=== PATIENT | female | born 1965 | race Caucasian/White ===

== ENCOUNTER 2016-07-07 08:31 | Emergency (ER) | payer SELFPAY ==
[~2016-07-07] VITALS: Ht 165.1 cm; Wt 90.0 kg
[~2016-07-07 08:31] MED LIST: CARV6.252 PO; CIPR500T4 PO; CYMB30CA PO; INSU1INJ14 INJ; PERC5TAB12 PO; PREG100 PO; ULTR50TA PO; ZOFR4TAB3 SL
[2016-07-07 08:37] VITALS: BP 201/93; PULSE 93; RESP 20; TEMP 97.6; O2SAT 95
[2016-07-07] MEDS ORDERED: KETOROLAC TROMETHAMINE 60 MG/2 ML (IM) VIAL IM ONE (09:00)
[2016-07-07] MEDS ORDERED: LORazepam 2 MG/ML VIAL IM ONE (09:00)
[2016-07-07] MEDS ORDERED: DULO1CAP2 PO (09:03)
[2016-07-07] MEDS ORDERED: LYRI100C PO (09:03)
[2016-07-07] MEDS ORDERED: CARV6.252 PO ×2 (09:03→09:25)
[2016-07-07] MEDS ORDERED: INSU1INJ14 SQ (09:03)
--- NOTE | 2016-07-07 09:03 | PD ---
HPI Chief Complaint: Pain: Acute or Chronic Time Seen by Provider: 08:44 Travel History International Travel<30 days: No Contact w/Intl Traveler<30days: No History of Present Illness HPI This is a 50-year-old female with a history of diabetes and neuropathy who presents to the emergency department with pain all over her body described as pins and needles in her hands and feet. Her reports that she woke up crying in pain. They attributed to her having been off of her medications including her Lyrica since December or January. The patient is tearful. Her reports that her father has been in the hospital just got discharged from rehabilitation with them so they have been under a lot of stress. He also says his has a hard time around the holidays. She denies any thoughts of hurting herself or others. PFSH Past Medical History Arthritis: No Asthma: No Autoimmune Disease: No Blood Disorders: No Anxiety: No Depression: Yes Heart Rhythm Problems: No Cancer: No Cardiovascular Problems: Yes (HTN) High Cholesterol: Yes Chemotherapy: No Chest Pain: Yes Congestive Heart Failure: No COPD: No Cerebrovascular Accident: No Diabetes: Yes Diminished Hearing: No Endocrine: Yes Gastrointestinal Disorders: Yes (gastroparesis) GERD: Yes Glaucoma: No Genitourinary: No Headaches: Yes Hepatitis: No Hiatal Hernia: No Hypertension: Yes Immune Disorder: No Implanted Vascular Access Dvce: No Kidney Stones: No Musculoskeletal: No Neurologic: Yes (neuropathy) Psychiatric: Yes Reproductive: No Respiratory: No Immunizations Current: No Myocardial Infarction: No Radiation Therapy: No Renal Failure: No Seizures: No Sleep Apnea: No Thyroid Disease: No Ulcer: No Tubal Ligation: Yes Past Surgical History Abdominal Surgery: Yes (X 2) AICD: No Section: Yes (X 2) Cholecystectomy: Yes Genitourinary Surgery: No Gynecologic Surgery: Yes Pacemaker: No Other Surgery: Yes (LAPAROSCOPY) Social History Alcohol Use: Yes (on occasion) Tobacco Use: No Substance Use: No Allergies-Medications (Allergen,Severity, Reaction): Coded Allergies: Sulfa (Verified Allergy, Severe, BREATHING DIFFICULTIES, 07/07/16) Reported Meds & Prescriptions Reported Meds & Active Scripts Active Carvedilol 6.25 Mg Tab 6.25 Mg PO BID Reported Carvedilol 6.25 Mg Tab 6.25 Mg PO BID Cymbalta DR (Duloxetine HCl) 60 Mg Capdr 60 Mg PO DAILY Review of Systems Except as stated in HPI: all other systems reviewed are Neg Physical Exam Narrative GENERAL:Well appearing, no acute distress SKIN: Warm and dry. HEAD: Atraumatic. Normocephalic. EYES: Pupils equal and round. No injection or drainage. ENT: Moist mucous membranes NECK: Trachea midline. CARDIOVASCULAR: Regular rate and rhythm. No murmur appreciated. RESPIRATORY: Clear to auscultation. Breath sounds equal bilaterally. GASTROINTESTINAL: Abdomen soft, non-tender, nondistended. MUSCULOSKELETAL: No obvious deformities. NEUROLOGICAL: Awake and alert. No obvious cranial nerve deficits. Moving all extremities PSYCHIATRIC: tearful, depressed mood Data Data Last Documented VS Vital Signs Date Time Temp Pulse Resp B/P Pulse Ox O2 Delivery O2 Flow Rate FiO2 07/07/16 08:37 97.6 93 20 201/93 95 Orders Ketorolac Inj (Toradol Inj) (07/07/16 09:00) Lorazepam Inj (Ativan Inj) (07/07/16 09:00) MDM Medical Decision Making Medical Screen Exam Complete: Yes Emergency Medical Condition: Yes Differential Diagnosis Diabetic neuropathy, fibromyalgia, panic attack, depression Narrative Course This is a 50-year-old female who woke up this morning in tears reporting pain all over her body. She has a history of diabetic neuropathy and has been off of her Lyrica for several months. She appears quite depressed but denies any thoughts of hurting herself or others. Patient was given a dose of Toradol and Ativan in the emergency department. She feels somewhat better. I think we should restart her on her medications. I think some of this is likely peripheral neuropathy but it's been complicated by depression. I don't think she is a harm to herself or others at this point I think she can be safely discharged. Diagnosis Primary Impression: Diabetic neuropathy Qualified Code: E11.42 - Diabetic polyneuropathy associated with type 2 diabetes mellitus Additional Impression: Depression Qualified Code: F32.9 - Depression, unspecified depression type Patient Instructions: General Instructions Additional Instructions: If you develop severe chest pain, shortness of breath, sweating, lightheadedness , dizziness or difficulty breathing return to the emergency department immediately. If you're having thoughts of hurting yourself or others return to the emergency room immediately. Follow-up with a primary care physician as soon as possible. Med/Other Pt SpecificInfo: Prescription(s) given Scripts Carvedilol 6.25 Mg Tab6.25 Mg PO BID #60 TAB Ref 1 Prov:Nara Felipe MD 07/07/16 Disposition: 01 DISCHARGE HOME Condition: Stable Nara Felipe MD Jul 07, 2016 09:03 Nara Felipe MD Jul 07, 2016 09:03
[2016-07-07] MEDS ORDERED: CYMB60CA PO (09:25)
[2016-07-07] MEDS ORDERED: HYDROmorphone HCL PF 1 MG/ML VIAL IV PUSH ONE (10:30)
== END 2016-07-07 11:25 | disposition home or self-care (01) ==
LOC: NEPC 08:31
DX: E11.40 Type 2 diabetes mellitus with diabetic neuropathy, unspecified (principal); F32.9 Major depressive disorder, single episode, unspecified; I10 Essential (primary) hypertension; E78.00 Pure hypercholesterolemia, unspecified; K31.84 Gastroparesis
CPT/HCPCS: 96372; 96374; 96375; 99283; J1170; J1885; J2060

== ENCOUNTER 2016-12-23 00:47 | Emergency (ER) | payer OTHER ==
[~2016-12-23] VITALS: Ht 160 cm; Wt 92.0 kg
[~2016-12-23 00:47] MED LIST changes: -CIPR500T4 PO; -CYMB30CA PO; +CYMB60CA PO; -INSU1INJ14 INJ; -PERC5TAB12 PO; -PREG100 PO; -ULTR50TA PO; -ZOFR4TAB3 SL
[2016-12-23 00:49] VITALS: BP 180/97; PULSE 90; RESP 20; TEMP 97.7; O2SAT 96
[2016-12-23] MEDS ORDERED: INSU1INJ14 SQ (00:59)
[2016-12-23] MEDS ORDERED: LYRI75CA PO (00:59)
--- NOTE | 2016-12-23 01:22 | PD ---
HPI Chief Complaint: Diabetic Time Seen by Provider: 01:11 Travel History International Travel<30 days: No Contact w/Intl Traveler<30days: No Traveled to known affect area: No History of Present Illness HPI The patient is a 51 year old female who presents to the [facility] emergency department with a history of not feeling well since Thursday morning. The patient reports that she has had nausea and vomiting 2, diarrhea 2, and low back pain. The patient reports that she checked her blood sugar and it was noted to be as high as 525 this evening. The patient denies having any chest pain, chest pressure, or shortness of breath. She reports that she was diagnosed with diabetes 10 years ago and a proximally year ago underwent a change to her regimen, discontinuing Invokana. Her current primary care physician, Dr. Estrada is in the process of reevaluating her for possibly starting back on this medication versus better control of her blood sugar with institution of insulin. The patient on review of systems denies having any recent known fevers, cough, congestion, neck pain, chest pain, shortness of breath, urinary symptoms, or neurologic symptoms. [facility] Past Medical History Narrative Medical The patient's past medical history is significant for diabetes, hypertension, neuropathy, depression, hyperlipidemia, gastroparesis. Arthritis: No Asthma: No Autoimmune Disease: No Blood Disorders: No Anxiety: No Depression: Yes Heart Rhythm Problems: No Cancer: No Cardiovascular Problems: Yes (htn) High Cholesterol: Yes Chemotherapy: No Chest Pain: Yes Congestive Heart Failure: No COPD: No Cerebrovascular Accident: No Diabetes: Yes Patient Takes Glucophage: Yes Diminished Hearing: No Endocrine: Yes Gastrointestinal Disorders: Yes (gastroparesis) GERD: Yes Glaucoma: No Genitourinary: No Headaches: Yes Hepatitis: No Hiatal Hernia: No Hypertension: Yes Immune Disorder: No Implanted Vascular Access Dvce: No Kidney Stones: No Musculoskeletal: No Neurologic: Yes (neuropathy) Psychiatric: Yes Reproductive: No Respiratory: No Immunizations Current: No Myocardial Infarction: No Radiation Therapy: No Renal Failure: No Seizures: No Sleep Apnea: No Thyroid Disease: No Ulcer: No Tetanus Vaccination: < 5 Years Influenza Vaccination: No ?: Not Tubal Ligation: Yes Past Surgical History Narrative Surgical Patient's past surgical history is significant for 2 c-sections, laparoscopy x2 , cholecystectomy. Abdominal Surgery: Yes (X 2) AICD: No Section: Yes (X 2) Cholecystectomy: Yes Genitourinary Surgery: No Gynecologic Surgery: Yes Pacemaker: No Other Surgery: Yes (LAPAROSCOPY) Social History Alcohol Use: Yes (on occasion) Tobacco Use: No Substance Use: No Allergies-Medications (Allergen,Severity, Reaction): Coded Allergies: Sulfa (Verified Allergy, Severe, BREATHING DIFFICULTIES, 12/23/16) Reported Meds & Prescriptions Reported Meds & Active Scripts Active Carvedilol 6.25 Mg Tab 6.25 Mg PO BID Reported Lyrica (Pregabalin) 75 Mg Cap 75 Mg PO TID Tresiba Flextouch Pen Inj (Insulin Degludec Inj) 300 unit/3 ML Pen 1 Units SQ TID Carvedilol 6.25 Mg Tab 6.25 Mg PO BID Cymbalta DR (Duloxetine HCl) 60 Mg Capdr 60 Mg PO DAILY Review of Systems Except as stated in HPI: all other systems reviewed are Neg General / Constitutional: No: Fever Eyes: No: Visual changes HENT: No: Headaches Cardiovascular: No: Chest Pain or Discomfort Respiratory: No: Shortness of Breath Gastrointestinal: Positive: Nausea, Vomiting, Diarrhea, Changes in Bowel Habits , No: Abdominal Pain, Hematemesis, Hematochezia, Loss of Appetite Genitourinary: No: Dysuria Musculoskeletal: No: Pain Skin: No Rash Neurologic: No: Weakness Psychiatric: No: Depression Endocrine: No: Polydipsia Hematologic/Lymphatic: No: Easy Bruising Physical Exam Narrative General: The patient is a well-developed well-nourished female in no acute distress. Head and Neck exam: Head is normocephalic atraumatic. Eyes: EOMI, pupils are equal round and reactive to light. Nose: Midline septum with pink mucous membranes Mouth: Dentition unremarkable. Tacky mucus membranes. Posterior oropharynx is not erythematous. No tonsillar hypertrophy. Uvula midline. Airway patent. Neck: No palpable lymphadenopathy. No nuchal rigidity. No thyromegaly. Cardiovascular: Regular rate and rhythm without murmurs, gallops, or rubs. Lungs: Clear to auscultation bilaterally. No wheezes, rhonchi, or rales. Abdomen: Soft, without tenderness to palpation in all 4 quadrants of the abdomen. No guarding, rebound, or rigidity. Normal bowel sounds are audible. No tenderness on palpation of McBurney's point. Negative Enriquez's sign. Extremities: No clubbing, cyanosis, or edema. 2+ pulses in all 4 extremities. No calf tenderness on palpation. Back: No costovertebral angle tenderness to palpation. Neurologic Exam: Grossly nonfocal. Skin Exam: No rash noted. Intact skin that is warm and dry. The patient has poor skin turgor. Data Data Last Documented VS Vital Signs Date Time Temp Pulse Resp B/P Pulse Ox O2 Delivery O2 Flow Rate FiO2 12/23/16 01:35 98 Room Air 12/23/16 00:55 16 12/23/16 00:49 97.7 90 180/97 Orders Electrocardiogram (12/23/16:22) Complete Blood Count With Diff (12/23/16:22) Comprehensive Metabolic Panel (12/23/16:22) Troponin I (12/23/16:22) Lipase (12/23/16:22) Urinalysis - C+S If Indicated (12/23/16:22) Magnesium (Mg) (12/23/16:22) Beta Hydroxybutyrate (Acetone) (12/23/16 01:22) Chest, Single Ap (12/23/16:22) Iv Access Insert/Monitor (12/23/16:22) Ecg Monitoring (12/23/16:22) Oximetry (12/23/16:22) Blood Gas Venous (Vbg) (12/23/16 01:22) Sodium Chlor 0.9% 1000 Ml Inj (Ns 1000 M (12/23/16 01:30) Insulin Human Regular Inj (Novolin R Inj (12/23/16 02:30) Sodium Chlor 0.9% 1000 Ml Inj (Ns 1000 M (12/23/16 03:15) Ondansetron Inj (Zofran Inj) (12/23/16 03:15) Labs Laboratory Tests Test 12/23/16 12/23/16 01:45 01:50 Urine Color LIGHT-YELLOW Urine Turbidity CLEAR Urine pH 6.0 Urine Specific Stem 1.026 Urine Protein NEG mg/dL Urine Glucose (UA) 1000 mg/dL Urine Ketones NEG mg/dL Urine Occult Blood NEG Urine Nitrite NEG Urine Bilirubin NEG Urine Urobilinogen LESS THAN 2.0 MG/DL Urine Leukocyte Esterase NEG Urine WBC LESS THAN 1 /hpf Microscopic Urinalysis Comment CULT NOT INDICATED Blood Gas Puncture Site Blood Gas Patient Temperature 98.6 Venous Blood pH 7.32 Venous Blood Partial Pressure 46 mmHg CO2 Venous Blood Partial Pressure 58 mmHg O2 Venous Blood HCO3 23 mmol/L Venous Blood Oxygen Saturation 88 % Venous Blood Oxygen Content 20.0 Vol % Venous Blood Base Excess -2.5 mmol/L Oxygen Delivery Device ROOM AIR Blood Gas Inspired Oxygen 21 % White Blood Count 10.7 TH/MM3 Red Blood Count 5.21 MIL/MM3 Hemoglobin 14.7 GM/DL Hematocrit 44.3 % Mean Corpuscular Volume 85.1 FL Mean Corpuscular Hemoglobin 28.3 PG Mean Corpuscular Hemoglobin 33.3 % Concent Red Cell Distribution Width 12.8 % Platelet Count 156 TH/MM3 Mean Platelet Volume 8.0 FL Neutrophils (%) (Auto) 46.9 % Lymphocytes (%) (Auto) 44.5 % Monocytes (%) (Auto) 5.2 % Eosinophils (%) (Auto) 2.2 % Basophils (%) (Auto) 1.2 % Neutrophils # (Auto) 5.0 TH/MM3 Lymphocytes # (Auto) 4.8 TH/MM3 Monocytes # (Auto) 0.6 TH/MM3 Eosinophils # (Auto) 0.2 TH/MM3 Basophils # (Auto) 0.1 TH/MM3 CBC Comment AUTO DIFF Differential Comment AUTO DIFF CONFIRMED Platelet Estimate LOW Platelet Morphology Comment NORMAL Sodium Level 137 MEQ/L Potassium Level 3.6 MEQ/L Chloride Level 100 MEQ/L Carbon Dioxide Level 26.8 MEQ/L Anion Gap 10 MEQ/L Blood Urea Nitrogen 7 MG/DL Creatinine 0.68 MG/DL Estimat Glomerular Filtration 92 ML/MIN Rate Random Glucose 372 MG/DL Calcium Level 8.8 MG/DL Magnesium Level 1.7 MG/DL Total Bilirubin 0.8 MG/DL Aspartate Amino Transf 14 U/L (AST/SGOT) Alanine Aminotransferase 24 U/L (ALT/SGPT) Alkaline Phosphatase 112 U/L Troponin I LESS THAN 0.02 NG/ML Total Protein 7.1 GM/DL Albumin 3.4 GM/DL Lipase 310 U/L B-Hydroxybutyrate 0.17 MMOL/L [facility] Medical Decision Making Medical Screen Exam Complete: Yes Emergency Medical Condition: Yes Medical Record Reviewed: Yes Differential Diagnosis DKA, versus hyperosmolar hyperglycemia, versus poorly controlled blood sugar Narrative Course During the course of the patients emergency department visit, the patients history, examination, and differential diagnosis were reviewed with the patient. The patient had IV access obtained and blood work sent for analysis. The patient was placed on a breakdown person with oximetry and blood pressure monitoring. An EKG was done on arrival. The patient's EKG shows a sinus rhythm heart rate of 81, marked left axis deviation, no acute ST segment elevation or depression, T waves are inverted in V1. QRS duration is 77 ms, QTc is 401 ms. The patient was initially provided normal saline 1 L IV fluid bolus. VBG showed no evidence of significant acidosis, bicarbonate within normal limits, therefore the patient was given regular insulin 12 units subcutaneously 1, second liter of normal saline was administered, Zofran 4 mg IV was given for nausea. The patients laboratory studies were reviewed and remarkable for a white count of 10.7, hemoglobin 14.7, platelets 156 with 44.5 lymphocytes, CMP is remarkable for glucose of 372, AST 14, troponin less than 0.02, lipase 310, urinalysis shows 1000 glucose otherwise unremarkable. Beta hydroxybutyrate is 0.17. Radiology studies were reviewed and remarkable for a chest x-ray that shows no evidence of acute cardiopulmonary disease. The patient will be monitored for improvement in her blood sugar. I offered to prescribe the patient Invokana, however she prefers to wait and discuss this further with her primary care physician, Dr. Estrada later today. She reports that she has laboratory studies that she's recently had done that she will call to see if they are resulted. We discussed the fact that the patient's elevated blood sugar is likely related to viral syndrome. The patient is resting comfortably and feels better, is alert and in no distress. The patients results and examination findings were discussed with the patient. The repeat examination is unremarkable and benign. The history, exam, diagnostic testing, and current condition do not suggest any significant pathology to warrant further testing, continued ED treatment, admission, or surgical evaluation at this point. The vital signs have been stable. The patient does not have uncontrollable pain, intractable vomiting, or other significant symptoms. The patient's condition is stable and appropriate for discharge. The patient will pursue further outpatient evaluation with a primary care physician or other designated or consulting physician as indicated in the discharge instructions. The patient expressed understanding and was agreeable with this plan. Diagnosis Primary Impression: Hyperglycemia due to type 2 diabetes mellitus Qualified Code: E11.65 - Type 2 diabetes mellitus with hyperglycemia, without long-term current use of insulin Referrals: Manisha Estrada MD 1 day Patient Instructions: Diabetic Hyperglycemia (ED), General Instructions Med/Other Pt SpecificInfo: Prescription(s) given Scripts Ondansetron Odt (Zofran Odt)4 Mg Tab4 Mg SL Q6HR PRN (Nausea/Vomiting) #7 TAB Ref 0 Prov:Penelope Staton MD 12/23/16 Disposition: DISCHARGE HOME Condition: Stable Penelope Staton MD Dec 23, 2016 01:22
[2016-12-23] MEDS ORDERED: SODIUM CHLOR 0.9% 1000 ML INJ 1,000 ML IV ONE ×2 (01:30→03:15)
[2016-12-23 01:35] VITALS: O2SAT 98
--- NOTE | 2016-12-23 01:55 | RADRPT ---
EXAM DATE/TIME: 12/23/2016 01:48 [facility] COMPARISON: No previous studies available for comparison. INDICATIONS : Cough. MEDICAL HISTORY : None. SURGICAL HISTORY : None. ENCOUNTER: Initial ACUITY: 1 day PAIN SCORE: 0/10 LOCATION: Bilateral chest FINDINGS: A single view of the chest demonstrates the lungs to be symmetrically aerated without evidence of mas s, infiltrate or effusion. The cardiomediastinal contours are unremarkable. Osseous structures are intact. CONCLUSION: No evidence of acute cardiopulmonary disease. Harshil Saleh MD on December 23, 2016 at 1:54 Board Certified Radiologist. This report was verified electronically.
[2016-12-23 01:58] LABS: BLOOD GAS VENOUS BASE EXCESS -2.5 mmol/L (-2-2); BLOOD GAS VENOUS HCO3 23 mmol/L (22-26); BLOOD GAS VENOUS O2 HGB SAT 88 % (70-76); BLOOD GAS VENOUS PCO2 46 mmHg (44-48); BLOOD GAS VENOUS PO2 58 mmHg (35-40); BLOOD GAS VENOUS pH 7.32 (7.360-7.400); CRITICAL VALUE YES; FIO2 21 %; OXYGEN DEVICE ROOM AIR; TEMP CORR TO 98.6
[2016-12-23 01:59] LABS: STAT YES
[2016-12-23 02:02] LABS: BASOPHIL # 0.1 TH/MM3 (0-0.2); BASOPHIL % 1.2 % (0.0-2.0); EOSINOPHIL # 0.2 TH/MM3 (0-0.4); EOSINOPHIL % 2.2 % (0.0-4.0); HEMATOCRIT 44.3 % (35.0-46.0); LYMPH % 44.5 % (9.0-44.0); LYMPHOCYTE # 4.8 TH/MM3 (1.0-4.8); MEAN CELL VOLUME 85.1 FL (80.0-100.0); MEAN CORPUSCULAR HEMOGLOBIN 28.3 PG (27.0-34.0); MEAN CORPUSCULAR HGB CONC 33.3 % (32.0-36.0); MONO % 5.2 % (0.0-8.0); NEUT % 46.9 % (16.0-70.0); PLATELET COUNT 156 TH/MM3 (150-450); RED BLOOD COUNT 5.21 MIL/MM3 (4.00-5.30); RED CELL DISTRIBUTION WIDTH 12.8 % (11.6-17.2); WHITE BLOOD COUNT 10.7 TH/MM3 (4.0-11.0)
[2016-12-23 02:06] LABS: BLOOD, URINE NEG (NEG); GLUCOSE,URINE 1000 mg/dL (NEG); KETONE, URINE NEG (NEG); NITRITE,URINE NEG (NEG); URINE COLOR LIGHT-YELLOW (YELLW/STRAW)
[2016-12-23 02:10] LABS: COMMENT (UR) CULT NOT INDICATED; CULTURE IF INDICATED CULT NOT INDICATED
[2016-12-23 02:28] LABS: ALT (GPT) 24 U/L (10-53); AST (GOT) 14 U/L (15-37); BICARBONATE 26.8 MEQ/L (21.0-32.0); BLOOD UREA NITROGEN 7 MG/DL (7-18); CHLORIDE 100 MEQ/L (98-107); GLOMERULAR FILTRATION RATE 92 ML/MIN (>89); MAGNESIUM 1.7 MG/DL (1.5-2.5); POTASSIUM 3.6 MEQ/L (3.5-5.1); SODIUM (NA) 137 MEQ/L (136-145)
[2016-12-23 02:29] LABS: ANION GAP 10 MEQ/L (5-15)
[2016-12-23] MEDS ORDERED: INSULIN HUMAN REGULAR 1,000 UNITS/10 ML VIAL SQ ONE (02:30)
[2016-12-23 02:32] LABS: ALKALINE PHOSPHATASE 112 U/L (45-117); BETA-HYDROXYBUTYRATE 0.17 MMOL/L (0.00-0.39); TOTAL BILIRUBIN ADULT 0.8 MG/DL (0.2-1.0)
[2016-12-23 02:34] LABS: HEMO FLAGS AUTO DIFF
[2016-12-23 02:35] LABS: PLATELET ESTIMATE SMEAR LOW (NORMAL); PLATELET MORPHOLOGY NORMAL (NORMAL); SCAN/DIFF AUTO DIFF CONFIRMED
[2016-12-23] MEDS ORDERED: ONDANSETRON HCL 4 MG/2 ML VIAL IV ONE (03:15)
[2016-12-23] MEDS ORDERED: ZOFR4TAB3 SL (03:57)
--- NOTE | 2016-12-23 17:02 | EKG ---
Date Performed: 12/23/2016 Time Performed: 02:04:54 PTAGE: 51 years EKG: Sinus rhythm MARKED LEFT AXIS DEVIATION LOW QRS VOLTAGE IN PRECORDIAL LEADS PATTERN CONSISTENT WITH PULMONARY DIS EASE Since previous tracing, no significant change noted ABNORMAL ECG PREVIOUS TRACING : 03/24/2015 01.06 DOCTOR: Charlotte Olivarez Interpretating Date/Time 12/23/2016 17:42:05
== END 2016-12-23 04:45 | disposition home or self-care (01) ==
LOC: NEPC 00:47
DX: E11.65 Type 2 diabetes mellitus with hyperglycemia (principal); R11.2 Nausea with vomiting, unspecified; R19.7 Diarrhea, unspecified; M54.5 Low back pain; R94.31 Abnormal electrocardiogram [ECG] [EKG]; I10 Essential (primary) hypertension; E78.5 Hyperlipidemia, unspecified; Z79.84 Long term (current) use of oral hypoglycemic drugs; Z86.69 Personal history of other diseases of the nervous system and sense organs; Z86.59 Personal history of other mental and behavioral disorders; Z87.19 Personal history of other diseases of the digestive system
CPT/HCPCS: 71010; 80053; 81001; 82010; 82805; 83690; 83735; 84484; 85025; 93005; 96361; 96372; 96374; 99285; J1815; J2405; J7030

== ENCOUNTER 2017-03-27 10:43 | Inpatient (IN) | payer OTHER ==
[~2017-03-27] VITALS: Ht 160 cm; Wt 94.7 kg
[~2017-03-27 10:43] MED LIST changes: +INSU1INJ14 SQ; +LYRI75CA PO; +ZOFR4TAB3 SL
[2017-03-27] MEDS ORDERED: SODIUM CHLOR 0.9% 1000 ML INJ 1,000 ML IV SCH (10:49)
[2017-03-27 11:00] VITALS: BP 166/93; PULSE 81; RESP 16; TEMP 98.9; O2SAT 96
[2017-03-27] MEDS ORDERED: ONDANSETRON HCL 4 MG/2 ML VIAL IVP ONE (11:00)
[2017-03-27] MEDS ORDERED: MORPHINE SULFATE 4 MG/ML INJ IV PUSH ONE (11:00)
--- NOTE | 2017-03-27 11:04 | PD ---
HPI Chief Complaint: Abdominal Pain Time Seen by Provider: 10:49 Travel History International Travel<30 days: No Contact w/Intl Traveler<30days: No Traveled to known affect area: No History of Present Illness HPI c/o 2 week h/o abdominal discomfort that has worsened over past 2 days, abd distention, nausea, nonrad, diffuse pressure to abd, 01/12, gi doctor carlos ordered an outpatient ct abd/pelvis which was essentially negative per report brought in by patient. dr huang attempted reglan outpatient and failed treatment, dr huang sends patient to ED for IV reglan, erythromycin, ivf, iv pain meds and mvi for observation pcp: dr posadas [facility] Past Medical History Arthritis: No Asthma: No Autoimmune Disease: No Blood Disorders: No Anxiety: No Depression: Yes Heart Rhythm Problems: No Cancer: No Cardiovascular Problems: Yes (htn) High Cholesterol: Yes Chemotherapy: No Chest Pain: Yes Congestive Heart Failure: No COPD: No Cerebrovascular Accident: No Diabetes: Yes Diminished Hearing: No Endocrine: Yes Gastrointestinal Disorders: Yes (gastroparesis) GERD: Yes Glaucoma: No Genitourinary: No Headaches: Yes Hepatitis: No Hiatal Hernia: No Hypertension: Yes Immune Disorder: No Implanted Vascular Access Dvce: No Kidney Stones: No Musculoskeletal: No Neurologic: Yes (neuropathy) Psychiatric: Yes Reproductive: No Respiratory: No Immunizations Current: No Myocardial Infarction: No Radiation Therapy: No Renal Failure: No Seizures: No Sleep Apnea: No Thyroid Disease: No Ulcer: No Tubal Ligation: Yes Past Surgical History Abdominal Surgery: Yes (X 2) AICD: No Section: Yes (X 2) Cholecystectomy: Yes Genitourinary Surgery: No Gynecologic Surgery: Yes Pacemaker: No Other Surgery: Yes (LAPAROSCOPY) Social History Alcohol Use: Yes (on occasion) Tobacco Use: No Substance Use: No Allergies-Medications (Allergen,Severity, Reaction): Coded Allergies: Sulfa (Sulfonamide Antibiotics) (Unverified Allergy, Severe, BREATHING DIFFICULTIES, 03/27/17) Reported Meds & Prescriptions Reported Meds & Active Scripts Active Zofran Odt (Ondansetron Odt) 4 Mg Tab 4 Mg SL Q6HR PRN Reported Phenergan (Promethazine HCl) 25 Mg Tablet 25 Mg PO HS Reglan (Metoclopramide HCl) 10 Mg Tab 10 Mg PO QID Farxiga (Dapagliflozin) 5 Mg Tab 5 Mg PO DAILY Novolog Inj (Insulin Aspart) 1,000 Unit/10 Ml Vial 0 SQ DIRECTED Sliding Scale as directed. Lyrica (Pregabalin) 75 Mg Cap 75 Mg PO TID Tresiba Flextouch Pen Inj (Insulin Degludec Inj) 300 unit/3 ML Pen 1 Units SQ TID Carvedilol 6.25 Mg Tab 6.25 Mg PO BID Cymbalta DR (Duloxetine HCl) 60 Mg Capdr 60 Mg PO DAILY Review of Systems Except as stated in HPI: all other systems reviewed are Neg Gastrointestinal: Positive: Nausea, Abdominal Pain Physical Exam Narrative GENERAL: SKIN: Warm and dry. HEAD: Atraumatic. Normocephalic. EYES: Pupils equal and round. No scleral icterus. No injection or drainage. ENT: No nasal bleeding or discharge. Mucous membranes pink and moist. NECK: Trachea midline. No JVD. CARDIOVASCULAR: Regular rate and rhythm. RESPIRATORY: No accessory muscle use. Clear to auscultation. Breath sounds equal bilaterally. GASTROINTESTINAL: Abdomen distended, hypoactive bowel sounds, no rigidity/ rebound, mild diffuse tenderness to deep palpation but not to percussion MUSCULOSKELETAL: Extremities without clubbing, cyanosis, or edema. No obvious deformities. NEUROLOGICAL: Awake and alert. No obvious cranial nerve deficits. Motor grossly within normal limits. Five out of 5 muscle strength in the arms and legs. Normal speech. PSYCHIATRIC: Appropriate mood and affect; insight and judgment normal. Data Data Last Documented VS Vital Signs Date Time Temp Pulse Resp B/P (MAP) Pulse Ox O2 Delivery O2 Flow Rate FiO2 03/27/17 14:00 83 16 145/77 (99) 94 Room Air 03/27/17 11:00 98.9 Orders Orders Complete Blood Count With Diff (03/27/17 10:49) Comprehensive Metabolic Panel (03/27/17 10:49) Lipase (03/27/17 10:49) Urinalysis - C+S If Indicated (03/27/17 10:49) Iv Access Insert/Monitor (03/27/17 10:49) Ecg Monitoring (03/27/17 10:49) Oximetry (03/27/17 10:49) NPO (03/27/17 10:49) Morphine Inj (Morphine Inj) (03/27/17 11:00) Ondansetron Inj (Zofran Inj) (03/27/17 11:00) Sodium Chlor 0.9% 1000 Ml Inj (Ns 1000 M (03/27/17 10:49) Sodium Chloride 0.9% Flush (Ns Flush) (03/27/17 11:00) Electrocardiogram (03/27/17 10:49) Ckmb (Isoenzyme) Profile (03/27/17 10:49) Troponin I (03/27/17 10:49) B-Type Natriuretic Peptide (03/27/17 10:49) Abdomen, Flat & Upright (03/27/17 ) Metoclopramide Inj (Reglan Inj) (03/27/17 11:15) Hydromorphone Pf Inj (Dilaudid Pf Inj) (03/27/17 14:00) Ng Gastric Tube Insert/Monitor (03/27/17 13:57) Admit Order (Ed Use Only) (03/27/17 14:08) Labs Laboratory Tests Test 03/27/17 11:15 03/27/17 12:25 White Blood Count 12.4 TH/MM3 Red Blood Count 5.56 MIL/MM3 Hemoglobin 15.6 GM/DL Hematocrit 47.4 % Mean Corpuscular Volume 85.3 FL Mean Corpuscular Hemoglobin 28.0 PG Mean Corpuscular Hemoglobin Concent 32.8 % Red Cell Distribution Width 12.3 % Platelet Count 318 TH/MM3 Mean Platelet Volume 7.8 FL Neutrophils (%) (Auto) 62.7 % Lymphocytes (%) (Auto) 27.9 % Monocytes (%) (Auto) 6.1 % Eosinophils (%) (Auto) 2.4 % Basophils (%) (Auto) 0.9 % Neutrophils # (Auto) 7.8 TH/MM3 Lymphocytes # (Auto) 3.4 TH/MM3 Monocytes # (Auto) 0.8 TH/MM3 Eosinophils # (Auto) 0.3 TH/MM3 Basophils # (Auto) 0.1 TH/MM3 CBC Comment DIFF FINAL Differential Comment Blood Urea Nitrogen 11 MG/DL Creatinine 0.70 MG/DL Random Glucose 208 MG/DL Total Protein 7.7 GM/DL Albumin 3.4 GM/DL Calcium Level 9.2 MG/DL Alkaline Phosphatase 98 U/L Aspartate Amino Transf (AST/SGOT) 14 U/L Alanine Aminotransferase (ALT/SGPT) 23 U/L Total Bilirubin 0.8 MG/DL Sodium Level 139 MEQ/L Potassium Level 3.9 MEQ/L Chloride Level 104 MEQ/L Carbon Dioxide Level 26.6 MEQ/L Anion Gap 8 MEQ/L Estimat Glomerular Filtration Rate 89 ML/MIN Total Creatine Kinase 84 U/L Troponin I LESS THAN 0.02 NG/ML B-Type Natriuretic Peptide 7 PG/ML Lipase 427 U/L Urine Collection Type CLEAN CATCH Urine Color YELLOW Urine Turbidity CLEAR Urine pH 5.5 Urine Specific [place] 1.028 Urine Protein NEG mg/dL Urine Glucose (UA) 1000 OR GREATER mg/dL Urine Ketones NEG mg/dL Urine Occult Blood TRACE Urine Nitrite NEG Urine Bilirubin NEG Urine Leukocyte Esterase NEG Urine RBC 0-3 /hpf Urine WBC 0-2 /hpf Urine Squamous Epithelial Cells > 8 /hpf Microscopic Urinalysis Comment CULT NOT INDICATED Urine Collection Time 12:25 [facility] Medical Decision Making Medical Screen Exam Complete: Yes Emergency Medical Condition: Yes Medical Record Reviewed: Yes Interpretation(s) nsr 80, nl intervals, no stemi pattern Differential Diagnosis gastroparesis v ileus v sbo v pancreatitis v atypical mi v atypical nonstemi Narrative Course ELECTROLYTES WITHOUT MAJOR ABNL, XRAY DID NOT SHOW ANY FREE AIR OR E/O SBO...EKG NEG FOR STEMI AND AFTER "CONSTANT" SYMPTOMS OVER DAYS TO WEEKS, ONE NEG TROPONIN IS ENOUGH TO R/O NONSTEMI. MILDLY ELEV LIPASE NOT ENOUGH FOR PANCREATITIS, HOWEVER IT MAY BE SECONDARY TO GASTROPARESIS. D/W GI AND WILL ADMIT FOR OBSERVATION RECC BY GI SPECIALIST (REGLAN, AZITHROMYCIN, ETC) Physician Communication Physician Communication CALLED DR HUANG WHO RECC OBS AND EES/REGLAN/NG TUBE TO AID PATIENT HOWEVER SHE DOES NOT ADMIT PRIMARILY, DR POSADAS PCP WAS CALLED NEXT WHO INFORMED ME THAT LAWANDA WILL BE ADMITTING HER PATIENTS FROM NOW ON FOR WEEKEND. 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
[2017-03-27] MEDS ORDERED: DAPA1TAB PO (11:06)
[2017-03-27] MEDS ORDERED: NOVOLOGP2 SQ (11:06)
[2017-03-27] MEDS ORDERED: REGL10TA5 PO (11:06)
[2017-03-27] MEDS ORDERED: PROM25TA10 PO (11:06)
[2017-03-27] MEDS ORDERED: METOCLOPRAMIDE HCL 10 MG/2 ML VIAL IV PUSH ONE (11:15)
[2017-03-27 11:25] LABS: AUTOMATED NEUTROPHIL # 7.8 TH/MM3 (1.8-7.7); BASOPHIL # 0.1 TH/MM3 (0-0.2); BASOPHIL % 0.9 % (0.0-2.0); EOSINOPHIL # 0.3 TH/MM3 (0-0.4); EOSINOPHIL % 2.4 % (0.0-4.0); HEMATOCRIT 47.4 % (35.0-46.0); HEMO FLAGS DIFF FINAL; LYMPH % 27.9 % (9.0-44.0); LYMPHOCYTE # 3.4 TH/MM3 (1.0-4.8); MEAN CELL VOLUME 85.3 FL (80.0-100.0); MEAN CORPUSCULAR HGB CONC 32.8 % (32.0-36.0); MONO % 6.1 % (0.0-8.0); NEUT % 62.7 % (16.0-70.0); PLATELET COUNT 318 TH/MM3 (150-450); RED BLOOD COUNT 5.56 MIL/MM3 (4.00-5.30); RED CELL DISTRIBUTION WIDTH 12.3 % (11.6-17.2); WHITE BLOOD COUNT 12.4 TH/MM3 (4.0-11.0)
[2017-03-27 11:35] LABS: CHLORIDE 104 MEQ/L (98-107); POTASSIUM 3.9 MEQ/L (3.5-5.1); SODIUM (NA) 139 MEQ/L (136-145)
--- NOTE | 2017-03-27 11:36 | RADRPT ---
EXAM DATE/TIME: 03/27/2017 10:59 [facility] COMPARISON: ABDOMEN FLAT & UPRIGHT, October 08, 2013, 12:25. EXTERNAL COMPARISON : [facility] March 25, 2017 INDICATIONS : Abdomen pain. MEDICAL HISTORY : None. SURGICAL HISTORY : Cholecystectomy. ENCOUNTER: Initial ACUITY: 3 weeks PAIN SCORE: 8/10 LOCATION: Bilateral upper quadrant and lower quadrant abdomen FINDINGS: Supine and upright views of the abdomen were performed. The abdominal bowel gas pattern is normal. No air fluid levels are seen. Residual contrast in the large bowel. Cholecystectomy clips. No abnorma l masses, calcifications, or organomegaly is seen. The visualized lower lungs are clear. No evidenc e of free intraperitoneal gas. The osseous structures are unremarkable. CONCLUSION: Unremarkable abdomen. Residual contrast in the colon. Status post cholecystectomy.. Kiko Justin MD on March 27, 2017 at 11:32 Board Certified Radiologist. This report was verified electronically.
[2017-03-27 11:39] LABS: ANION GAP 8 MEQ/L (5-15); BICARBONATE 26.6 MEQ/L (21.0-32.0); BLOOD UREA NITROGEN 11 MG/DL (7-18)
[2017-03-27 11:42] LABS: ALT (GPT) 23 U/L (10-53); AST (GOT) 14 U/L (15-37); GLOMERULAR FILTRATION RATE 89 ML/MIN (>89)
[2017-03-27 11:44] LABS: TOTAL BILIRUBIN ADULT 0.8 MG/DL (0.2-1.0)
[2017-03-27 11:45] LABS: ALKALINE PHOSPHATASE 98 U/L (45-117)
[2017-03-27 11:49] LABS: CREATINE KINASE 84 U/L (26-192)
[2017-03-27 12:36] LABS: GLUCOSE,URINE 1000 OR GREATER mg/dL (NEG); KETONE, URINE NEG (NEG); NITRITE,URINE NEG (NEG); PH, URINE 5.5 (5.0-8.5)
[2017-03-27 12:37] LABS: BLOOD, URINE TRACE (NEG); METHOD OF COLLECTION CLEAN CATCH; URINE COLOR YELLOW (YELLW/STRAW)
[2017-03-27 12:40] LABS: COMMENT (UR) CULT NOT INDICATED; CULTURE IF INDICATED CULT NOT INDICATED; RBC, URINE 0-3 /hpf (0-3); SQUAMOUS EPITHELIAL CELL URINE > 8 /hpf (0-5); WBC, URINE 0-2 /hpf (0-5)
[2017-03-27 14:00] VITALS: BP 145/77; PULSE 83; RESP 16; O2SAT 94
[2017-03-27] MEDS ORDERED: HYDROmorphone HCL PF 2 MG/ML VIAL IVS ONE (14:00)
[2017-03-27] MEDS: SODIUM CHLORIDE 0.9% FLUSH 10 ML FLUSH IV FLUSH PRN (14:08)
[2017-03-27] MEDS ORDERED: IOHEXOL 350 MG/ML 10 ML VIAL (for RAD DIAG) IVCONTRAST ONE (14:12)
[2017-03-27] MEDS ORDERED: GLUCAGON 1 MG/ML VIAL OTHER PRN (15:00)
[2017-03-27] MEDS ORDERED: DEXTROSE 50% IN WATER 50 ML SYRINGE IV PRN (15:00)
[2017-03-27 15:21] VITALS: BP 165/96; PULSE 87; RESP 16; O2SAT 94
[2017-03-27] MEDS: INSULIN ASPART SUPPLEMENTAL SCALE SQ SCH (16:45)
[2017-03-27] MEDS ORDERED: INSU1INJ14 SQ (16:47)
[2017-03-27] MEDS: SODIUM CHLOR 0.9% 1000 ML INJ 1,000 ML IV SCH (16:54)
[2017-03-27] MEDS: METOCLOPRAMIDE HCL 10 MG/2 ML VIAL IV PUSH SCH (16:54)
[2017-03-27 17:03] VITALS: BP 143/88; PULSE 86; RESP 19; TEMP 97.7; O2SAT 93
--- NOTE | 2017-03-27 17:15 | MH ---
cc: JONAS ELDER M.D. DATE OF ADMISSION 03/27/2017 ADMISSION DIAGNOSIS 1. Abdominal pain and abdominal bloating 2. Gastroparesis 3. Minimal elevated lipase, doubt pancreatitis 4. Insulin dependent diabetes mellitus with diabetic neuropathy. 5. Hyperlipidemia 6. Hypertension. PERTINENT HISTORY This is a pleasant 51-year-old white female with history of gastroesophageal reflux disease and gastroparesis who started about three weeks ago with abdominal bloating and gas. She has kind of worsened with worsening abdominal discomfort over the last couple of days with more distension, some nausea at times but no vomiting, no diarrhea. She has not had any melena, no fever. She was seen by gastroenterology, Dr. Luciano and had a CAT scan of her abdomen a couple of days ago on the that showed no acute process or significant abnormality. She was seen there in the office today and was sent here because she had not responded to outpatient Reglan therapy that she was put on earlier this week. She was sent here for some IV fluids and IV Reglan. She has an NG tube in and is more comfortable now. PAST MEDICAL HISTORY 1. Gastroesophageal reflux disease 2. Hiatal hernia 3. Gastroparesis, 4. Hypertension, 5. Hyperlipidemia, 6. Insulin-dependent diabetes mellitus. 7. Pancreatitis in 2014. She has had no heart disease, liver, kidney disease. No peptic ulcer disease. 8. She had gastritis on her last EGD on 03/26/2015. She has had no colon disease and had a negative colonoscopy 12/24/04. She has had no stroke or seizure, no cancer. 9. She has had chickenpox. PAST SURGICAL HISTORY 1. LEEP 2. x2 3. Laparoscopy with lysis of adhesions on two prior occasions 4. Laparoscopic cholecystectomy 5. EGD 03/26/2015 with gastritis. 6. Colonoscopy 12/24/2004 ALLERGIES SULFA MEDICATIONS 1. Phenergan 25 mg as needed for nausea 2. Lyrica 75 mg three times a day for diabetic neuropathy 3. Cymbalta 60 mg a day. 4. 300 units per 3 mL, she uses 60 units every morning 5. Carvedilol 6.25 mg twice a day for hypertension 6. Rosuvastatin 10 mg a day for hyperlipidemia. 7. Reglan 10 mg four times a day the last few days. 8. Farxiga 5 mg a day for diabetes. 9. NovoLog insulin 5 units with her evening meal. 10. Zofran as needed. FAMILY HISTORY Her mother at 55 of emphysema. Father at 72 of COPD. 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 Does not use alcohol. She used to smoke one pack a day for 14 years but quit 20 years ago. REVIEW OF SYSTEMS GENERAL: No fever, chills or sweats. HEENT: Without complaints. CARDIOVASCULAR: No chest pain, orthopnea, PND. PULMONARY: No cough, hemoptysis, wheezing. GI: As mentioned. : No dysuria, urgency, frequency. EXTREMITIES: Without swelling. SKIN: Without rash. NEUROLOGIC: She has numbness and tingling in the feet from her neuropathy. PHYSICAL EXAMINATION GENERAL: A pleasant, obese white female in no acute stress VITAL SIGNS: BP 165/96, 145/77, sat 94% on room air, pulse 87, respirations 16, temperature 98.9. HEENT: Pupils are equal. Sclerae are nonicteric. Nose without lesions. Mouth without inflammation or lesions. NECK: Without bruit. No JVD. HEART: Regular rate and rhythm. No murmur. LUNGS: Clear. ABDOMEN: Soft. There is some mild distension of her abdomen, minimal tenderness in the epigastric region. No rebound or guarding. EXTREMITIES: No edema. Pulses 2+ both feet. SKIN: Negative. NEUROLOGIC: Oriented x3. Cranial nerves, motor sensory intact. LABORATORY DATA White count 12.4, hemoglobin 15.6, platelets normal. Electrolytes were normal. BUN 11, creatinine 0.7, random glucose 208, AST, ALT alkaline phosphatase, CK were normal. Troponin less than 0.02, total protein and albumin normal, lipase just minimally high at 427. Urinalysis just showed glucose otherwise negative. IMAGING STUDIES Abdomen x-ray showed no acute process. ASSESSMENT As noted. PLAN She is admitted. We will obtain a GI consult. We will get her on Reglan 10 mg q. six hours IV. We will put her on a sliding scale for her diabetes coverage since she has an NG tube in and is not taking orally. We will do SHYLA hose and SCDs for DVT prophylaxis. We will recheck her lipase in the morning. We will put her on IV normal saline. GI consult to be obtained with Dr. Luciano. MD MEGHANN Love /4:34 PM /4:48 PM
[2017-03-27] MEDS: HYDROmorphone HCL PF 1 MG/ML VIAL IV PUSH PRN (19:32)
[2017-03-27 21:14] VITALS: BP 142/78; PULSE 86; RESP 20; TEMP 98.7; O2SAT 92
[2017-03-27] MEDS: ONDANSETRON HCL 4 MG/2 ML VIAL IV PUSH PRN (21:21)
[2017-03-27] MEDS ORDERED: DIATRIZOATE MEGLUM/DIATRIZOATE SOD 9 ML CUP PO ONE (22:30)
[2017-03-27 22:53] LABS: INDIRECT BILIRUBIN 0.8 MG/DL (0.0-0.8)
[2017-03-28] MEDS: METOCLOPRAMIDE HCL 10 MG/2 ML VIAL IV PUSH SCH ×4 (00:06→18:12)
--- NOTE | 2017-03-28 01:05 | RADRPT ---
EXAM DATE/TIME: 03/28/2017 00:27 [facility] COMPARISON: No previous studies available for comparison. INDICATIONS : Dehydration, gastroparesis. Possible pancreatitis IV CONTRAST: 96 cc Omnipaque 350 (iohexol) IV ORAL CONTRAST: Prescribed oral contrast administered via NG tube. RADIATION DOSE: 19.70 CTDIvol (mGy) ; Patient body habitus MEDICAL HISTORY : Diabetes mellitus type 2. Hernia, hiatal. Hypertension.GERD, pancreatitis 2014 SURGICAL HISTORY : section. NG tube ENCOUNTER: Initial ACUITY: 2 days PAIN SCALE: 6/10 LOCATION: abdomen TECHNIQUE: Volumetric scanning of the abdomen was performed. Using automated exposure control and adjustment of the mA and/or kV according to patient size, radiation dose was kept as low as reasonably achievable to obtain optimal diagnostic quality images. DICOM format image data is available electronically for review and comparison. FINDINGS: LOWER LUNGS: The visualized lower lungs are clear. LIVER: Homogeneous density without lesion. There is no dilation of the biliary tree. Hemoclips in the monalisa from prior cholecystectomy.. SPLEEN: Normal size without lesion. PANCREAS: The head, body, and tail of the pancreas has a normal configuration. No peripancreatic induration or fluid. KIDNEYS: Normal in size and shape. There is no mass, stone, or hydronephrosis. 1.5 cm cortical cyst mid pole left kidney. ADRENAL GLANDS: Within normal limits. AORTA/RETROPERITONEAL: There is no aneurysm or lymphadenopathy. BOWEL/MESENTERY: Gastric tube in place with the tip near the antrum. Oral contrast passes through to the left colon. No dilated loops of small or large bowel. ABDOMINAL WALL: Within normal limits. MUSCULOSKELETAL: Within normal limits for patient age. POST CONTRAST: No abnormal areas of enhancement are seen. CONCLUSION: 1. Normal CT appearance of the pancreas. 2. Gastric tube tip in the stomach. Hung Mason MD on March 28, 2017 at 1:01 Board Certified Radiologist. This report was verified electronically.
[2017-03-28] MEDS: HYDROmorphone HCL PF 1 MG/ML VIAL IV PUSH PRN ×5 (01:15→20:37)
[2017-03-28 01:49] VITALS: BP 149/89; PULSE 81; RESP 18; TEMP 97.1; O2SAT 94
[2017-03-28] MEDS: SODIUM CHLOR 0.9% 1000 ML INJ 1,000 ML IV SCH ×4 (02:45→16:23)
[2017-03-28] MEDS: ONDANSETRON HCL 4 MG/2 ML VIAL IV PUSH PRN ×3 (03:19→16:16)
[2017-03-28] MEDS: INSULIN ASPART SUPPLEMENTAL SCALE SQ SCH ×4 (06:00→18:00)
--- NOTE | 2017-03-28 06:45 | MB ---
cc: JENI FERNANDO M.D. DATE OF CONSULTATION: 03/27/2017 REASON FOR REFERRAL Abdominal pain HISTORY: Thank you for the consultation, a 51-year-old female wall has multiple GI issues including reflux symptom and gastroparesis. The patient came complaining of abdominal pain and bloating for at least about a week symptoms were getting worse and did not have any bowel movement for 48 hours with some nausea and pain. The pain was 8/10 with bloating and mild distension of her abdomen. The patient had seen Dr. Luciano this afternoon and she was sent to the emergency room because of that. In the emergency room labs where ordered she has mild elevation of lipase and questionable ileus. PAST MEDICAL HISTORY: Medical history significant for gastroparesis, reflux symptom hiatal hernia, hyperlipidemia, diabetes, history of pancreatitis in the past. Her last esophagogastroduodenoscopy was 2014 and colonoscopy 2004. ALLERGIES SULFA. MEDICATIONS: Reviewed in the chart. PAST SURGICAL HISTORY LEEP section laparoscopic lysis adhesions times two. Laparoscopic cholecystectomy. Esophagogastroduodenoscopy and colonoscopy as above. SOCIAL HISTORY No alcohol, one pack a day for about 20 years but she quit 20 years ago. FAMILY HISTORY Significant for chronic obstructive pulmonary disease. REVIEW OF SYSTEMS All 12-point negative except as in history of present illness. PHYSICAL EXAMINATION IN GENERAL: Alert, oriented, the patient not in acute distress but she is having some discomfort with the NG tube. VITAL SIGNS: Stable. No fever. HEAD, EYES, EARS, NOSE, AND THROAT: Pupils are round, reactive to light. NECK: Supple. CHEST: Clear to auscultation and percussion. CARDAIC: Regular rate and rhythm. No murmur or gallop. Next ABDOMEN: Diffuse abdominal discomfort mostly in the upper abdomen and the midepigastric area with mild distension. positive bowel sounds. Next I could not appreciate hepatosplenomegaly. The patient is obese. EXTREMITIES: No edema, clubbing or cyanosis. NEUROLOGIC: Neurologically alert, oriented, intact. No limitation. No deficit. PSYCHIATRIC: Psychologically appropriate. SKIN: Dry and clear. Next no jaundice. LABORATORY FINDINGS: She had a CT scan which few days ago which was unremarkable for acute disease. Liver function tests normal. Next complete blood count no anemia. Sodium 139, potassium 3.9, total bilirubin 0.8, AST 14, ALT 23, lipase 427, albumin 30.7, white count 12.4, hemoglobin 15.6, platelet 318. Abdominal x-ray unremarkable abdomen. There is visual contrast in the colon, status post cholecystectomy. ASSESSMENT/PLAN 1. Pleasant 51-year-old lady who has abdominal pain, and abdominal distension. The pain is worse with mild elevation of her lipase even though there is a low chance of pancreatitis, but she had history of that before, she had moderate elevation of the lipase and she is diabetic so there is a chance of that. I am going to if she still continues to have pain to repeat CT scan tomorrow. 2. In the meanwhile we will continue NG tube to suction. 3. Anemetics. 4. I do not think we need to do an upper endoscopy at this time but we might consider that. 5. Further plan depends on how she is doing and the findings on the labs and CT scan. MD SHERRY Alonzo/santo /9:53 PM /6:22 AM
--- NOTE | 2017-03-28 07:12 | HHI.PR ---
Subjective Remarks She still has some upper abdominal pain and abdomen still bloated. Her NG tube is still returning a lot of bile. Objective Vitals Vital Signs Date Time Temp Pulse Resp B/P (MAP) Pulse Ox O2 Delivery O2 Flow Rate FiO2 03/28/17 04:46 03/28/17 01:49 97.1 81 18 149/89 (109) 94 03/27/17 21:14 98.7 86 20 142/78 (99) 92 03/27/17 17:03 97.7 86 19 143/88 (106) 93 03/27/17 15:34 03/27/17 15:21 87 16 165/96 (119) 94 Room Air 03/27/17 14:00 83 16 145/77 (99) 94 Room Air 03/27/17 11:03 (117) 03/27/17 11:00 98.9 81 16 166/93 (117) 96 Room Air 03/27/17 11:00 96 Room Air Result Diagram: 03/27/17 1115 03/27/17 1115 Other Results Lab today still pending. Laboratory Tests Test 03/27/17 11:15 03/27/17 12:25 03/27/17 22:10 White Blood Count 12.4 TH/MM3 Red Blood Count 5.56 MIL/MM3 Hemoglobin 15.6 GM/DL Hematocrit 47.4 % Mean Corpuscular Volume 85.3 FL Mean Corpuscular Hemoglobin 28.0 PG Mean Corpuscular Hemoglobin Concent 32.8 % Red Cell Distribution Width 12.3 % Platelet Count 318 TH/MM3 Mean Platelet Volume 7.8 FL Neutrophils (%) (Auto) 62.7 % Lymphocytes (%) (Auto) 27.9 % Monocytes (%) (Auto) 6.1 % Eosinophils (%) (Auto) 2.4 % Basophils (%) (Auto) 0.9 % Neutrophils # (Auto) 7.8 TH/MM3 Lymphocytes # (Auto) 3.4 TH/MM3 Monocytes # (Auto) 0.8 TH/MM3 Eosinophils # (Auto) 0.3 TH/MM3 Basophils # (Auto) 0.1 TH/MM3 CBC Comment DIFF FINAL Differential Comment Blood Urea Nitrogen 11 MG/DL Creatinine 0.70 MG/DL Random Glucose 208 MG/DL Total Protein 7.7 GM/DL 7.0 GM/DL Albumin 3.4 GM/DL 3.1 GM/DL Calcium Level 9.2 MG/DL Alkaline Phosphatase 98 U/L 91 U/L Aspartate Amino Transf (AST/SGOT) 14 U/L 13 U/L Alanine Aminotransferase (ALT/SGPT) 23 U/L 22 U/L Total Bilirubin 0.8 MG/DL 1.0 MG/DL Sodium Level 139 MEQ/L Potassium Level 3.9 MEQ/L Chloride Level 104 MEQ/L Carbon Dioxide Level 26.6 MEQ/L Anion Gap 8 MEQ/L Estimat Glomerular Filtration Rate 89 ML/MIN Total Creatine Kinase 84 U/L Troponin I LESS THAN 0.02 NG/ML B-Type Natriuretic Peptide 7 PG/ML Lipase 427 U/L Urine Collection Type CLEAN CATCH Urine Color YELLOW Urine Turbidity CLEAR Urine pH 5.5 Urine Specific [place] 1.028 Urine Protein NEG mg/dL Urine Glucose (UA) 1000 OR GREATER mg/dL Urine Ketones NEG mg/dL Urine Occult Blood TRACE Urine Nitrite NEG Urine Bilirubin NEG Urine Leukocyte Esterase NEG Urine RBC 0-3 /hpf Urine WBC 0-2 /hpf Urine Squamous Epithelial Cells > 8 /hpf Microscopic Urinalysis Comment CULT NOT INDICATED Urine Collection Time 12:25 Direct Bilirubin 0.2 MG/DL Indirect Bilirubin 0.8 MG/DL Imaging Last Impressions Abdomen X-Ray 03/27/17 0000 Signed Impressions: Service Date/Time: Monday, March 27, 2017 10:59 - CONCLUSION: Unremarkable abdomen. Residual contrast in the colon. Status post cholecystectomy.. Kiko Justin MD Abdomen CT 03/27/17 0000 Signed Impressions: Service Date/Time: Tuesday, March 28, 2017 00:27 - CONCLUSION: 1. Normal CT appearance of the pancreas. 2. Gastric tube tip in the stomach. Hung Mason MD Objective Remarks Exam: Pleasant white female in no obvious distress. NG tube in place. HEENT: No scleral icterus, pupils equal, Neck: No JVD Lungs: Clear Heart: RRR with no murmur Abdomen: Soft, minimal tenderness epigastric area, still some bloating, no masses Extremities: No edema Neuro: Alert, oriented A/P Assessment and Plan Assessment: --Abdominal pain and bloating --Gastroparesis --Insulin dependent diabetes mellitus with neuropathy --Hypertension --Hyperlipidemia --GERD/Hiatal hernia Plan: Continue Reglan. Patient was seen by GI. Continue NG suction. Continue IV fluids. Lewis Jacob MD Mar 28, 2017 07:12
[2017-03-28 08:00] VITALS: BP 131/85; PULSE 74; RESP 20; TEMP 97; O2SAT 94
[2017-03-28 08:25] LABS: AUTOMATED NEUTROPHIL # 6.5 TH/MM3 (1.8-7.7); BASOPHIL # 0.1 TH/MM3 (0-0.2); BASOPHIL % 0.9 % (0.0-2.0); EOSINOPHIL # 0.2 TH/MM3 (0-0.4); EOSINOPHIL % 1.9 % (0.0-4.0); HEMATOCRIT 41.1 % (35.0-46.0); HEMO FLAGS DIFF FINAL; LYMPH % 29.4 % (9.0-44.0); LYMPHOCYTE # 3.1 TH/MM3 (1.0-4.8); MEAN CELL VOLUME 84.8 FL (80.0-100.0); MEAN CORPUSCULAR HEMOGLOBIN 28.9 PG (27.0-34.0); MEAN CORPUSCULAR HGB CONC 34.1 % (32.0-36.0); MONO % 5.7 % (0.0-8.0); NEUT % 62.1 % (16.0-70.0); PLATELET COUNT 276 TH/MM3 (150-450); RED BLOOD COUNT 4.84 MIL/MM3 (4.00-5.30); WHITE BLOOD COUNT 10.5 TH/MM3 (4.0-11.0)
[2017-03-28 08:32] LABS: POTASSIUM 3.5 MEQ/L (3.5-5.1)
[2017-03-28 08:37] LABS: BICARBONATE 27.3 MEQ/L (21.0-32.0)
[2017-03-28 12:00] VITALS: BP 140/86; PULSE 77; RESP 20; TEMP 97.4; O2SAT 96
[2017-03-28 12:56] VITALS: BP 150/93; PULSE 75; RESP 18; O2SAT 95
--- NOTE | 2017-03-28 15:42 | EKG ---
Date Performed: 03/27/2017 Time Performed: 11:23:28 PTAGE: 51 years EKG: Sinus rhythm MARKED LEFT AXIS DEVIATION LOW QRS VOLTAGE IN PRECORDIAL LEADS PATTERN CONSISTENT WITH PULMONARY DIS EASE Compared to prior tracing no significant change ABNORMAL ECG PREVIOUS TRACING : 12/23/2016 02.04 DOCTOR: Angel Luis Dillard Interpretating Date/Time 03/28/2017 15:41:46
[2017-03-28 16:00] VITALS: BP 139/60; PULSE 82; RESP 20; TEMP 97.7; O2SAT 94
[2017-03-28 20:18] VITALS: BP 139/74; PULSE 81; RESP 16; TEMP 97.7; O2SAT 93
[2017-03-28] MEDS: PROMETHAZINE HCL 25 MG SUPP RECTAL PRN (20:52)
[2017-03-29 00:06] VITALS: BP 141/74; PULSE 81; RESP 16; TEMP 97.4; O2SAT 94
[2017-03-29] MEDS: METOCLOPRAMIDE HCL 10 MG/2 ML VIAL IV PUSH SCH ×5 (00:31→23:47)
[2017-03-29] MEDS: SODIUM CHLOR 0.9% 1000 ML INJ 1,000 ML IV SCH ×4 (00:31→20:18)
[2017-03-29] MEDS: ONDANSETRON HCL 4 MG/2 ML VIAL IV PUSH PRN ×3 (01:14→23:50)
[2017-03-29] MEDS: HYDROmorphone HCL PF 1 MG/ML VIAL IV PUSH PRN ×5 (01:14→20:18)
[2017-03-29] MEDS: PROMETHAZINE HCL 25 MG SUPP RECTAL PRN ×3 (03:50→20:18)
[2017-03-29] MEDS: INSULIN ASPART SUPPLEMENTAL SCALE SQ SCH ×5 (05:29→23:46)
--- NOTE | 2017-03-29 07:12 | HHI.PR ---
Subjective Remarks Still having nausea. Her pain has improved and she has let abdominal bloating. NG tube still in. Objective Vitals Vital Signs Date Time Temp Pulse Resp B/P (MAP) Pulse Ox O2 Delivery O2 Flow Rate FiO2 03/29/17 04:15 03/29/17 00:06 97.4 81 16 141/74 (96) 94 03/28/17 20:18 97.7 81 16 139/74 (95) 93 03/28/17 16:47 18 03/28/17 16:00 97.7 82 20 139/60 (86) 94 03/28/17 12:56 75 18 150/93 (112) 95 03/28/17 12:00 97.4 77 20 140/86 (104) 96 03/28/17 08:00 97.0 74 20 131/85 (100) 94 Result Diagram: 03/28/17 0730 03/28/17 0730 Other Results Laboratory Tests Test 03/27/17 11:15 03/27/17 12:25 03/27/17 22:10 03/28/17 07:30 White Blood Count 12.4 TH/MM3 10.5 TH/MM3 Red Blood Count 5.56 MIL/MM3 4.84 MIL/MM3 Hemoglobin 15.6 GM/DL 14.0 GM/DL Hematocrit 47.4 % 41.1 % Mean Corpuscular Volume 85.3 FL 84.8 FL Mean Corpuscular Hemoglobin 28.0 PG 28.9 PG Mean Corpuscular Hemoglobin Concent 32.8 % 34.1 % Red Cell Distribution Width 12.3 % 12.0 % Platelet Count 318 TH/MM3 276 TH/MM3 Mean Platelet Volume 7.8 FL 7.7 FL Neutrophils (%) (Auto) 62.7 % 62.1 % Lymphocytes (%) (Auto) 27.9 % 29.4 % Monocytes (%) (Auto) 6.1 % 5.7 % Eosinophils (%) (Auto) 2.4 % 1.9 % Basophils (%) (Auto) 0.9 % 0.9 % Neutrophils # (Auto) 7.8 TH/MM3 6.5 TH/MM3 Lymphocytes # (Auto) 3.4 TH/MM3 3.1 TH/MM3 Monocytes # (Auto) 0.8 TH/MM3 0.6 TH/MM3 Eosinophils # (Auto) 0.3 TH/MM3 0.2 TH/MM3 Basophils # (Auto) 0.1 TH/MM3 0.1 TH/MM3 CBC Comment DIFF FINAL DIFF FINAL Differential Comment Blood Urea Nitrogen 11 MG/DL 9 MG/DL Creatinine 0.70 MG/DL 0.43 MG/DL Random Glucose 208 MG/DL 97 MG/DL Total Protein 7.7 GM/DL 7.0 GM/DL Albumin 3.4 GM/DL 3.1 GM/DL Calcium Level 9.2 MG/DL 8.6 MG/DL Alkaline Phosphatase 98 U/L 91 U/L Aspartate Amino Transf (AST/SGOT) 14 U/L 13 U/L Alanine Aminotransferase (ALT/SGPT) 23 U/L 22 U/L Total Bilirubin 0.8 MG/DL 1.0 MG/DL Sodium Level 139 MEQ/L 143 MEQ/L Potassium Level 3.9 MEQ/L 3.5 MEQ/L Chloride Level 104 MEQ/L 107 MEQ/L Carbon Dioxide Level 26.6 MEQ/L 27.3 MEQ/L Anion Gap 8 MEQ/L 9 MEQ/L Estimat Glomerular Filtration Rate 89 ML/MIN 155 ML/MIN Total Creatine Kinase 84 U/L Troponin I LESS THAN 0.02 NG/ML B-Type Natriuretic Peptide 7 PG/ML Lipase 427 U/L 134 U/L Urine Collection Type CLEAN CATCH Urine Color YELLOW Urine Turbidity CLEAR Urine pH 5.5 Urine Specific [place] 1.028 Urine Protein NEG mg/dL Urine Glucose (UA) 1000 OR GREATER mg/dL Urine Ketones NEG mg/dL Urine Occult Blood TRACE Urine Nitrite NEG Urine Bilirubin NEG Urine Leukocyte Esterase NEG Urine RBC 0-3 /hpf Urine WBC 0-2 /hpf Urine Squamous Epithelial Cells > 8 /hpf Microscopic Urinalysis Comment CULT NOT INDICATED Urine Collection Time 12:25 Direct Bilirubin 0.2 MG/DL Indirect Bilirubin 0.8 MG/DL Imaging Last Impressions Abdomen X-Ray 03/27/17 0000 Signed Impressions: Service Date/Time: Monday, March 27, 2017 10:59 - CONCLUSION: Unremarkable abdomen. Residual contrast in the colon. Status post cholecystectomy.. Kiko Justin MD Abdomen CT 03/27/17 0000 Signed Impressions: Service Date/Time: Tuesday, March 28, 2017 00:27 - CONCLUSION: 1. Normal CT appearance of the pancreas. 2. Gastric tube tip in the stomach. Hung Mason MD Objective Remarks Exam: Pleasant white female in no obvious distress. NG tube in place. HEENT: No scleral icterus, pupils equal, Neck: No JVD Lungs: Clear Heart: RRR with no murmur Abdomen: Soft, no significant tenderness, no distension today, no masses Extremities: No edema Neuro: Alert, oriented A/P Assessment and Plan Assessment: --Abdominal pain and bloating--improving (NG tube still in) --Gastroparesis --Insulin dependent diabetes mellitus with neuropathy --Hypertension --Hyperlipidemia --GERD/Hiatal hernia Plan: Continue Reglan. Patient was seen by GI. Possibly d/c NG tube today after GI sees her.. Continue IV fluids. Lewis Jacob MD Mar 29, 2017 07:12
[2017-03-29 08:00] VITALS: BP 158/80; PULSE 82; RESP 16; TEMP 97.1; O2SAT 94
[2017-03-29 12:00] VITALS: BP 153/75; PULSE 89; RESP 16; TEMP 97.9; O2SAT 94
--- NOTE | 2017-03-29 12:32 | HHI.GIFU ---
Subjective Remarks Laying in bed with NG tube to low intermittent suction the whole canister has filled up since early hours of the morning she denies any bowel movements or flatus Complains of abdominal discomfort and nausea Nothing seems to be helping at this point The patient reports having had surgeries for adhesions in the past Objective Vitals I&O Vital Signs Date Time Temp Pulse Resp B/P (MAP) Pulse Ox O2 Delivery O2 Flow Rate FiO2 03/29/17 12:00 97.9 89 16 153/75 (101) 94 03/29/17 10:20 18 03/29/17 08:00 97.1 82 16 158/80 (106) 94 03/29/17 04:15 03/29/17 00:06 97.4 81 16 141/74 (96) 94 03/28/17 20:18 97.7 81 16 139/74 (95) 93 03/28/17 16:00 97.7 82 20 139/60 (86) 94 03/28/17 12:56 75 18 150/93 (112) 95 I/O 03/28/17 03/28/17 03/28/17 03/29/17 03/29/17 03/29/17 07:00 15:00 23:00 07:00 15:00 23:00 Intake Total 1181 ml 700 ml 1139 ml 300 ml Output Total 450 ml 450 ml 400 ml 1700 ml Balance 731 ml -450 ml 300 ml -561 ml 300 ml Intake IV Total 1181 ml 700 ml 1139 ml 300 ml Output Gastric Drainage Total 450 ml 450 ml 400 ml 1700 ml # Voids 4 4 4 # Bowel Movements 0 0 Laboratory Laboratory Tests Test 03/27/17 22:10 03/28/17 07:30 Total Bilirubin 1.0 MG/DL Direct Bilirubin 0.2 MG/DL Indirect Bilirubin 0.8 MG/DL Aspartate Amino Transf (AST/SGOT) 13 U/L Alanine Aminotransferase (ALT/SGPT) 22 U/L Alkaline Phosphatase 91 U/L Total Protein 7.0 GM/DL Albumin 3.1 GM/DL White Blood Count 10.5 TH/MM3 Red Blood Count 4.84 MIL/MM3 Hemoglobin 14.0 GM/DL Hematocrit 41.1 % Mean Corpuscular Volume 84.8 FL Mean Corpuscular Hemoglobin 28.9 PG Mean Corpuscular Hemoglobin Concent 34.1 % Red Cell Distribution Width 12.0 % Platelet Count 276 TH/MM3 Mean Platelet Volume 7.7 FL Neutrophils (%) (Auto) 62.1 % Lymphocytes (%) (Auto) 29.4 % Monocytes (%) (Auto) 5.7 % Eosinophils (%) (Auto) 1.9 % Basophils (%) (Auto) 0.9 % Neutrophils # (Auto) 6.5 TH/MM3 Lymphocytes # (Auto) 3.1 TH/MM3 Monocytes # (Auto) 0.6 TH/MM3 Eosinophils # (Auto) 0.2 TH/MM3 Basophils # (Auto) 0.1 TH/MM3 CBC Comment DIFF FINAL Differential Comment Blood Urea Nitrogen 9 MG/DL Creatinine 0.43 MG/DL Random Glucose 97 MG/DL Calcium Level 8.6 MG/DL Sodium Level 143 MEQ/L Potassium Level 3.5 MEQ/L Chloride Level 107 MEQ/L Carbon Dioxide Level 27.3 MEQ/L Anion Gap 9 MEQ/L Estimat Glomerular Filtration Rate 155 ML/MIN Lipase 134 U/L Imaging Last Impressions Abdomen X-Ray 03/27/17 0000 Signed Impressions: Service Date/Time: Monday, March 27, 2017 10:59 - CONCLUSION: Unremarkable abdomen. Residual contrast in the colon. Status post cholecystectomy.. Kiko Justin MD Abdomen CT 03/27/17 0000 Signed Impressions: Service Date/Time: Tuesday, March 28, 2017 00:27 - CONCLUSION: 1. Normal CT appearance of the pancreas. 2. Gastric tube tip in the stomach. Hung Mason MD Physical Exam HEENT: normocephalic; atraumatic; no jaundice. Throat is clear. NECK: Neck is supple. CHEST: Chest is clear to auscultation and percussion. CARDIAC: Regular rate and rhythm with no murmur gallop or rubs. ABDOMEN: Soft, nondistended, nontender; no hepatosplenomegaly; bowel sounds are present in all four quadrants. EXTREMITIES: No clubbing, cyanosis, or edema. SKIN: Normal; no rash; no jaundice. PATTERNMAKER PLASTICS: No focal deficits; alert and oriented times three. Assessment and Plan Plan Abdominal distention, with abdominal pain and nausea And currently with large amount of NG return Etiology unclear but we'll need to rule out bowel obstruction We will proceed with Gastrografin small bowel follow-through Continue with current supportive care Review of charts of past admissions it seems that she has had 3 gastric emptying scans one of which was borderline and 2 were unremarkable May need to repeat emptying scan so as to assess for diagnosis of gastroparesis Salas Krishnamurthy MD Mar 29, 2017 12:32
--- NOTE | 2017-03-29 14:08 | RADRPT ---
EXAM DATE/TIME: 03/29/2017 13:26 [facility] COMPARISON: No previous studies available for comparison. INDICATIONS : Abdomen pain. Intake Clinician film for small bowel follow-through MEDICAL HISTORY : None. SURGICAL HISTORY : Cholecystectomy. ENCOUNTER: Subsequent ACUITY: 3 days PAIN SCORE: 8/10 LOCATION: Bilateral abdomen FINDINGS: 2 AP views the abdomen and pelvis were obtained and demonstrate a nasogastric tube in place with the tip projected over the distal stomach or proximal small bowel. There are surgical clips in right uppe r quadrant consistent with prior cholecystectomy. There is a moderate amount of residual contrast thr oughout the colon. There is no evidence of free air. CONCLUSION: 1. Moderate amount of residual barium throughout the colon which would obscure small bowel follow-thr ough. 2. Nonobstructive bowel gas pattern. Rolly Padilla MD on March 29, 2017 at 14:05 Board Certified Radiologist. This report was verified electronically.
[2017-03-29 15:54] VITALS: BP 144/67; PULSE 93; RESP 16; TEMP 98.3; O2SAT 93
[2017-03-29 21:18] VITALS: BP 169/87; PULSE 92; RESP 16; TEMP 98.7; O2SAT 94
[2017-03-30 00:07] VITALS: BP 124/84; PULSE 93; RESP 16; TEMP 98; O2SAT 92
[2017-03-30] MEDS: HYDROmorphone HCL PF 1 MG/ML VIAL IV PUSH PRN ×6 (01:28→22:32)
[2017-03-30] MEDS: PROMETHAZINE HCL 25 MG SUPP RECTAL PRN ×3 (03:20→21:06)
[2017-03-30] MEDS: INSULIN ASPART SUPPLEMENTAL SCALE SQ SCH ×3 (05:28→18:00)
[2017-03-30 05:56] LABS: POTASSIUM 3.5 MEQ/L (3.5-5.1)
[2017-03-30] MEDS: METOCLOPRAMIDE HCL 10 MG/2 ML VIAL IV PUSH SCH ×3 (05:57→18:05)
[2017-03-30] MEDS: ONDANSETRON HCL 4 MG/2 ML VIAL IV PUSH PRN ×2 (05:57→18:49)
[2017-03-30 06:00] LABS: BICARBONATE 24.2 MEQ/L (21.0-32.0)
[2017-03-30] MEDS: SODIUM CHLOR 0.9% 1000 ML INJ 1,000 ML IV SCH ×2 (06:02→14:26)
[2017-03-30 06:11] VITALS: TEMP 98.6
--- NOTE | 2017-03-30 06:43 | HHI.PR ---
Subjective Remarks Still some discomfort. NG tube still draining a fair amount. She complains of some slight burning on urination today. Objective Vitals Vital Signs Date Time Temp Pulse Resp B/P (MAP) Pulse Ox O2 Delivery O2 Flow Rate FiO2 03/30/17 06:11 98.6 03/30/17 04:04 03/30/17 00:07 98.0 93 16 124/84 (97) 92 03/29/17 21:18 98.7 92 16 169/87 (114) 94 03/29/17 15:55 18 03/29/17 15:54 98.3 93 16 144/67 (92) 93 03/29/17 12:00 97.9 89 16 153/75 (101) 94 03/29/17 08:00 97.1 82 16 158/80 (106) 94 Result Diagram: 03/28/17 0730 03/30/17 0535 Other Results Laboratory Tests Test 03/28/17 07:30 03/30/17 05:35 White Blood Count 10.5 TH/MM3 Red Blood Count 4.84 MIL/MM3 Hemoglobin 14.0 GM/DL Hematocrit 41.1 % Mean Corpuscular Volume 84.8 FL Mean Corpuscular Hemoglobin 28.9 PG Mean Corpuscular Hemoglobin Concent 34.1 % Red Cell Distribution Width 12.0 % Platelet Count 276 TH/MM3 Mean Platelet Volume 7.7 FL Neutrophils (%) (Auto) 62.1 % Lymphocytes (%) (Auto) 29.4 % Monocytes (%) (Auto) 5.7 % Eosinophils (%) (Auto) 1.9 % Basophils (%) (Auto) 0.9 % Neutrophils # (Auto) 6.5 TH/MM3 Lymphocytes # (Auto) 3.1 TH/MM3 Monocytes # (Auto) 0.6 TH/MM3 Eosinophils # (Auto) 0.2 TH/MM3 Basophils # (Auto) 0.1 TH/MM3 CBC Comment DIFF FINAL Differential Comment Blood Urea Nitrogen 9 MG/DL 8 MG/DL Creatinine 0.43 MG/DL 0.50 MG/DL Random Glucose 97 MG/DL 149 MG/DL Calcium Level 8.6 MG/DL 8.8 MG/DL Sodium Level 143 MEQ/L 141 MEQ/L Potassium Level 3.5 MEQ/L 3.5 MEQ/L Chloride Level 107 MEQ/L 105 MEQ/L Carbon Dioxide Level 27.3 MEQ/L 24.2 MEQ/L Anion Gap 9 MEQ/L 12 MEQ/L Estimat Glomerular Filtration Rate 155 ML/MIN 131 ML/MIN Lipase 134 U/L Imaging Last Impressions Abdomen X-Ray 03/29/17 0000 Signed Impressions: Service Date/Time: Wednesday, March 29, 2017 13:26 - CONCLUSION: 1. Moderate amount of residual barium throughout the colon which would obscure small bowel follow-through. 2. Nonobstructive bowel gas pattern. Rolly Padilla MD Abdomen CT 03/27/17 0000 Signed Impressions: Service Date/Time: Tuesday, March 28, 2017 00:27 - CONCLUSION: 1. Normal CT appearance of the pancreas. 2. Gastric tube tip in the stomach. Hung Mason MD Last Impressions Abdomen X-Ray 03/27/17 0000 Signed Impressions: Service Date/Time: Monday, March 27, 2017 10:59 - CONCLUSION: Unremarkable abdomen. Residual contrast in the colon. Status post cholecystectomy.. Kiko Justin MD Abdomen CT 03/27/17 0000 Signed Impressions: Service Date/Time: Tuesday, March 28, 2017 00:27 - CONCLUSION: 1. Normal CT appearance of the pancreas. 2. Gastric tube tip in the stomach. Hung Mason MD Objective Remarks Exam: Pleasant white female in no obvious distress. NG tube in place. HEENT: No scleral icterus, pupils equal, Neck: No JVD Lungs: Clear Heart: RRR with no murmur Abdomen: Soft, no significant tenderness, no distension today, no masses Extremities: No edema Neuro: Alert, oriented A/P Assessment and Plan Assessment: --Abdominal pain and bloating--improving (NG tube still in) --Gastroparesis --Insulin dependent diabetes mellitus with neuropathy --Hypertension --Hyperlipidemia --GERD/Hiatal hernia --Slight dysuria Plan: Continue Reglan. GI entertaining that she may have a partial bowel obstruction. Continue IV fluids. Check UA with culture if indicated. Lewis Jacob MD Mar 30, 2017 06:43
[2017-03-30 08:00] VITALS: BP 151/89; PULSE 93; RESP 19; TEMP 98.6; O2SAT 92
[2017-03-30 08:54] LABS: BLOOD, URINE SMALL (NEG); GLUCOSE,URINE 100 mg/dL (NEG); KETONE, URINE 80 OR GREATER mg/dL (NEG); NITRITE,URINE NEG (NEG)
[2017-03-30 09:04] LABS: METHOD OF COLLECTION CLEAN CATCH; URINE COLOR STRAW (YELLW/STRAW)
[2017-03-30 09:05] LABS: COMMENT (UR) CULT NOT INDICATED; CULTURE IF INDICATED CULT NOT INDICATED; RBC, URINE 0-3 /hpf (0-3); SQUAMOUS EPITHELIAL CELL URINE 0-5 /hpf (0-5)
[2017-03-30 12:00] VITALS: BP 140/86; PULSE 88; RESP 19; TEMP 98.3; O2SAT 94
--- NOTE | 2017-03-30 15:42 | HHI.GIFU ---
Subjective Remarks Pt sitting up in bed, still with copious NGT output, 900cc this morning per RN. Still with nausea, dry heaving, upper quadrant pain. No BM in 4 days. (Lana Almaraz) Objective Vitals I&O Vital Signs Date Time Temp Pulse Resp B/P (MAP) Pulse Ox O2 Delivery O2 Flow Rate FiO2 03/30/17 12:00 98.3 88 19 140/86 (104) 94 03/30/17 08:00 98.6 93 19 151/89 (109) 92 03/30/17 06:11 98.6 03/30/17 04:04 03/30/17 00:07 98.0 93 16 124/84 (97) 92 03/29/17 21:18 98.7 92 16 169/87 (114) 94 03/29/17 15:55 18 03/29/17 15:54 98.3 93 16 144/67 (92) 93 I/O 03/29/17 03/29/17 03/29/17 03/30/17 03/30/17 03/30/17 07:00 15:00 23:00 07:00 15:00 23:00 Intake Total 1139 ml 300 ml 1000 ml 1000 ml 850 ml Output Total 1700 ml 2700 ml 900 ml 900 ml Balance -561 ml 300 ml -1700 ml 100 ml -50 ml Intake IV Total 1139 ml 300 ml 1000 ml 1000 ml 850 ml Output Gastric Drainage Total 1700 ml 2700 ml 900 ml 900 ml # Voids 4 3 4 3 # Bowel Movements 0 0 Laboratory Laboratory Tests Test 03/30/17 05:35 03/30/17 08:30 Blood Urea Nitrogen 8 Creatinine 0.50 Random Glucose 149 Calcium Level 8.8 Sodium Level 141 Potassium Level 3.5 Chloride Level 105 Carbon Dioxide Level 24.2 Anion Gap 12 Estimat Glomerular Filtration Rate 131 Urine Collection Type CLEAN CATCH Urine Color STRAW Urine Turbidity CLEAR Urine pH 6.0 Urine Specific [place] 1.025 Urine Protein TRACE Urine Glucose (UA) 100 Urine Ketones 80 OR GREATER Urine Occult Blood SMALL Urine Nitrite NEG Urine Bilirubin NEG Urine Leukocyte Esterase NEG Urine RBC 0-3 Urine WBC 3-5 Urine Squamous Epithelial Cells 0-5 Microscopic Urinalysis Comment CULT NOT INDICATED Imaging Last Impressions Abdomen X-Ray 03/29/17 0000 Signed Impressions: Service Date/Time: Wednesday, March 29, 2017 13:26 - CONCLUSION: 1. Moderate amount of residual barium throughout the colon which would obscure small bowel follow-through. 2. Nonobstructive bowel gas pattern. Rolly Padilla MD Abdomen CT 03/27/17 0000 Signed Impressions: Service Date/Time: Tuesday, March 28, 2017 00:27 - CONCLUSION: 1. Normal CT appearance of the pancreas. 2. Gastric tube tip in the stomach. Hung Mason MD Physical Exam HEENT: normocephalic; atraumatic; no jaundice. NGT to suction, yellowish output CHEST: CTA CARDIAC: RRR ABDOMEN: Soft, distended, upper quadrant TTP; no hepatosplenomegaly; bowel sounds are present RUQ & RLQ, could not appreciate BS left quadrant EXTREMITIES: No clubbing, cyanosis, or edema. SKIN: Normal; no rash; no jaundice. PLASTICS TECHNICIAN: No focal deficits; alert and oriented times three. (Lana Almaraz) Assessment and Plan Plan ASSESSMENT - Abdominal distention, with abdominal pain and nausea - And currently with large amount of NG return 900 cc today. unclear etiology r/o obstruction. KUB yesterday showed residual barium that would obscure SBFT , will retry for tomorrow. she has had GES before, 2 unremarkable and 1 that was borderline, will consider repeating PLAN - SBFT - keep NGT to LIWS - NPO - SBFT tomorrow - if neg consider GES - supportive care This pt seen by myself and Dr Krishnamurthy and this note is written on his behalf (Lana Almaraz) Physician Comments Patient seen and examined Agree with above Continue with current supportive care Monitor labs Await small bowel follow-through Add erythromycin 100 mg IV every 8 (Salas Krishnamurthy MD) Lana Almaraz Mar 30, 2017 15:42 Salas Krishnamurthy MD Mar 30, 2017 20:18
[2017-03-30 16:00] VITALS: BP 150/85; PULSE 77; RESP 18; TEMP 97.6; O2SAT 94
[2017-03-30 20:00] VITALS: BP 125/76; PULSE 93; RESP 20; TEMP 98.9; O2SAT 94
[2017-03-30] MEDS: ERYTHROMYCIN ETHYLSUCCINATE 200 MG/5 ML SUSP 100 ML BOTTLE PO SCH (22:02)
[2017-03-31] VITALS: BP 149/81; PULSE 94; RESP 18; TEMP 97.6; O2SAT 95
[2017-03-31] MEDS: SODIUM CHLOR 0.9% 1000 ML INJ 1,000 ML IV SCH ×2 (00:09→22:22)
[2017-03-31] MEDS: ONDANSETRON HCL 4 MG/2 ML VIAL IV PUSH PRN ×3 (00:10→13:27)
[2017-03-31] MEDS: METOCLOPRAMIDE HCL 10 MG/2 ML VIAL IV PUSH SCH ×4 (00:10→17:11)
[2017-03-31] MEDS: PROMETHAZINE HCL 25 MG SUPP RECTAL PRN ×4 (03:13→20:36)
[2017-03-31] MEDS: HYDROmorphone HCL PF 1 MG/ML VIAL IV PUSH PRN ×5 (03:15→21:39)
[2017-03-31] MEDS: ERYTHROMYCIN ETHYLSUCCINATE 200 MG/5 ML SUSP 100 ML BOTTLE PO SCH (05:33)
[2017-03-31] MEDS: INSULIN ASPART SUPPLEMENTAL SCALE SQ SCH ×4 (05:44→18:00)
--- NOTE | 2017-03-31 06:44 | HHI.PR ---
Subjective Remarks Still complains of epigastric discomfort at times. Occasional nausea. NG tube still bringing up a lot of liquid. Objective Vitals Vital Signs Date Time Temp Pulse Resp B/P (MAP) Pulse Ox O2 Delivery O2 Flow Rate FiO2 03/31/17 00:00 97.6 94 18 149/81 (103) 95 03/30/17 20:00 98.9 93 20 125/76 (92) 94 03/30/17 16:00 97.6 77 18 150/85 (106) 94 03/30/17 12:00 98.3 88 19 140/86 (104) 94 03/30/17 08:00 98.6 93 19 151/89 (109) 92 Result Diagram: 03/28/17 0730 03/30/17 0535 Other Results Laboratory Tests Test 03/30/17 05:35 03/30/17 08:30 03/31/17 04:45 Blood Urea Nitrogen 8 MG/DL Creatinine 0.50 MG/DL Random Glucose 149 MG/DL Calcium Level 8.8 MG/DL Sodium Level 141 MEQ/L Potassium Level 3.5 MEQ/L Chloride Level 105 MEQ/L Carbon Dioxide Level 24.2 MEQ/L Anion Gap 12 MEQ/L Estimat Glomerular Filtration Rate 131 ML/MIN Urine Collection Type CLEAN CATCH Urine Color STRAW Urine Turbidity CLEAR Urine pH 6.0 Urine Specific [place] 1.025 Urine Protein TRACE mg/dL Urine Glucose (UA) 100 mg/dL Urine Ketones 80 OR GREATER mg/dL Urine Occult Blood SMALL Urine Nitrite NEG Urine Bilirubin NEG Urine Leukocyte Esterase NEG Urine RBC 0-3 /hpf Urine WBC 3-5 /hpf Urine Squamous Epithelial Cells 0-5 /hpf Microscopic Urinalysis Comment CULT NOT INDICATED Imaging Last Impressions Abdomen X-Ray 03/29/17 0000 Signed Impressions: Service Date/Time: Wednesday, March 29, 2017 13:26 - CONCLUSION: 1. Moderate amount of residual barium throughout the colon which would obscure small bowel follow-through. 2. Nonobstructive bowel gas pattern. Rolly Padilla MD Abdomen CT 03/27/17 0000 Signed Impressions: Service Date/Time: Tuesday, March 28, 2017 00:27 - CONCLUSION: 1. Normal CT appearance of the pancreas. 2. Gastric tube tip in the stomach. Hung Mason MD Last Impressions Abdomen X-Ray 9/22/17 0000 Signed Impressions: Service Date/Time: Monday, March 27, 2017 10:59 - CONCLUSION: Unremarkable abdomen. Residual contrast in the colon. Status post cholecystectomy.. Kiko Justin MD Abdomen CT 03/27/17 0000 Signed Impressions: Service Date/Time: Tuesday, March 28, 2017 00:27 - CONCLUSION: 1. Normal CT appearance of the pancreas. 2. Gastric tube tip in the stomach. Hung Mason MD Objective Remarks Exam: Pleasant white female in no obvious distress. NG tube in place. HEENT: No scleral icterus, pupils equal, Neck: No JVD Lungs: Clear Heart: RRR with no murmur Abdomen: Soft, minimal epigastric tenderness, no distension today, no masses Extremities: No edema Neuro: Alert, oriented A/P Assessment and Plan Assessment: --Abdominal pain and bloating--improved but still has intermittent pain (NG tube still in) --Gastroparesis --Insulin dependent diabetes mellitus with neuropathy --Hypertension --Hyperlipidemia --GERD/Hiatal hernia Plan: Continue Reglan. GI entertaining that she may have a partial bowel obstruction. Continue IV fluids. GI is planning on trying to repeat her small bowel study today. Lewis Jacob MD Mar 31, 2017 06:44
[2017-03-31 06:47] LABS: AUTOMATED NEUTROPHIL # 10.5 TH/MM3 (1.8-7.7); BASOPHIL % 0.2 % (0.0-2.0); EOSINOPHIL # 0.1 TH/MM3 (0-0.4); EOSINOPHIL % 0.7 % (0.0-4.0); HEMATOCRIT 42.9 % (35.0-46.0); HEMO FLAGS DIFF FINAL; LYMPHOCYTE # 2.3 TH/MM3 (1.0-4.8); MEAN CORPUSCULAR HEMOGLOBIN 28.5 PG (27.0-34.0); MEAN CORPUSCULAR HGB CONC 33.5 % (32.0-36.0); MONO % 8.5 % (0.0-8.0); NEUT % 74.6 % (16.0-70.0); PLATELET COUNT 287 TH/MM3 (150-450); RED BLOOD COUNT 5.05 MIL/MM3 (4.00-5.30); RED CELL DISTRIBUTION WIDTH 11.8 % (11.6-17.2); WHITE BLOOD COUNT 14.1 TH/MM3 (4.0-11.0)
[2017-03-31 06:51] LABS: POTASSIUM 3.5 MEQ/L (3.5-5.1)
[2017-03-31 06:57] LABS: BICARBONATE 19.8 MEQ/L (21.0-32.0)
[2017-03-31 08:00] VITALS: BP 100/71; PULSE 81; RESP 22; TEMP 98; O2SAT 97
[2017-03-31] MEDS: PANTOPRAZOLE SODIUM 40 MG VIAL IV PUSH SCH (08:23)
--- NOTE | 2017-03-31 10:11 | RADRPT ---
EXAM DATE/TIME: 03/31/2017 09:15 [facility] COMPARISON: ABDOMEN KUB ONLY, March 29, 2017, 13:26. 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 Abdominal pain. MEDICAL HISTORY : Gastroesophageal reflux disease. Gastroparesis. SURGICAL HISTORY : Cholecystectomy. ENCOUNTER: Subsequent ACUITY: 1 week PAIN SCORE: 3/10 LOCATION: Bilateral Abdomen FINDINGS: There are no dilated loops of bowel seen. Contrast is noted throughout the large bowel. Surgical clip s right upper quadrant. Osseous structures are intact. CONCLUSION: No acute disease. Joe Heard MD on March 31, 2017 at 10:10 Board Certified Radiologist. This report was verified electronically.
--- NOTE | 2017-03-31 10:58 | HHI.GIFU ---
Subjective Remarks Patient was sitting in chair, uncomfortable because of the NG tube, she also complained of abdominal discomfort, her small bowel follow-through was canceled because there was significant amount of contrast in the colon Objective Vitals I&O Vital Signs Date Time Temp Pulse Resp B/P (MAP) Pulse Ox O2 Delivery O2 Flow Rate FiO2 03/31/17 08:00 98.0 81 22 100/71 (81) 97 03/31/17 00:00 97.6 94 18 149/81 (103) 95 03/30/17 20:00 98.9 93 20 125/76 (92) 94 03/30/17 16:00 97.6 77 18 150/85 (106) 94 03/30/17 12:00 98.3 88 19 140/86 (104) 94 I/O 03/30/17 03/30/17 03/30/17 03/31/17 03/31/17 03/31/17 07:00 15:00 23:00 07:00 15:00 23:00 Intake Total 1000 ml 850 ml Output Total 900 ml 900 ml Balance 100 ml -50 ml Intake IV Total 1000 ml 850 ml Output Gastric Drainage Total 900 ml 900 ml # Voids 3 # Bowel Movements 0 Laboratory Laboratory Tests Test 03/31/17 04:45 White Blood Count 14.1 Red Blood Count 5.05 Hemoglobin 14.4 Hematocrit 42.9 Mean Corpuscular Volume 85.0 Mean Corpuscular Hemoglobin 28.5 Mean Corpuscular Hemoglobin Concent 33.5 Red Cell Distribution Width 11.8 Platelet Count 287 Mean Platelet Volume 7.7 Neutrophils (%) (Auto) 74.6 Lymphocytes (%) (Auto) 16.0 Monocytes (%) (Auto) 8.5 Eosinophils (%) (Auto) 0.7 Basophils (%) (Auto) 0.2 Neutrophils # (Auto) 10.5 Lymphocytes # (Auto) 2.3 Monocytes # (Auto) 1.2 Eosinophils # (Auto) 0.1 Basophils # (Auto) 0.0 CBC Comment DIFF FINAL Differential Comment Blood Urea Nitrogen 7 Creatinine 0.53 Random Glucose 152 Calcium Level 8.8 Sodium Level 141 Potassium Level 3.5 Chloride Level 108 Carbon Dioxide Level 19.8 Anion Gap 13 Estimat Glomerular Filtration Rate 122 Physical Exam HEENT: normocephalic; atraumatic; no jaundice. NGT to suction, yellowish output CHEST: CTA CARDIAC: RRR ABDOMEN: Soft, distended, upper quadrant TTP; no hepatosplenomegaly; bowel sounds are present old quarters EXTREMITIES: No clubbing, cyanosis, or edema. SKIN: Normal; no rash; no jaundice. CRUDE TESTER: No focal deficits; alert and oriented times three. Assessment and Plan Plan ASSESSMENT - Abdominal distention, with abdominal pain and nausea - And currently with large amount of NG return 900 cc today. unclear etiology r/o obstruction. KUB yesterday showed residual barium that would obscure SBFT , will retry for tomorrow. she has had GES before, 2 unremarkable and 1 that was borderline, will consider repeating 03/31/2017 she was still having abdominal discomfort, did not have small bowel follow-through because of contrast in the colon, she is having neck discomfort from the NG tube PLAN - SBFT when okay with cardiology - keep NGT to LIWS - NPO - SBFT may be tomorrow - if neg consider GES - supportive care Bennie Ortega MD Mar 31, 2017 10:58
[2017-03-31 12:00] VITALS: BP 161/95; PULSE 98; RESP 20; TEMP 98; O2SAT 97
[2017-03-31] MEDS: SODIUM CHLORIDE 0.9% IV SCH ×2 (15:45→22:22)
[2017-03-31] MEDS: [UNRECOGNIZED DRUG - OTHER] IV SCH ×2 (15:45→22:22)
[2017-03-31 16:00] VITALS: BP 145/76; PULSE 90; RESP 20; TEMP 98; O2SAT 97
[2017-03-31 20:00] VITALS: BP 138/77; PULSE 86; RESP 20; TEMP 97.6; O2SAT 98
[2017-04-01] VITALS: BP 125/79; PULSE 88; RESP 18; TEMP 95.9; O2SAT 97
[2017-04-01] MEDS: METOCLOPRAMIDE HCL 10 MG/2 ML VIAL IV PUSH SCH ×4 (00:33→18:17)
[2017-04-01] MEDS: ONDANSETRON HCL 4 MG/2 ML VIAL IV PUSH PRN (01:48)
[2017-04-01] MEDS: HYDROmorphone HCL PF 1 MG/ML VIAL IV PUSH PRN ×5 (01:49→20:37)
[2017-04-01] MEDS: [UNRECOGNIZED DRUG - OTHER] IV SCH ×3 (03:42→22:11)
[2017-04-01] MEDS: SODIUM CHLORIDE 0.9% IV SCH ×3 (03:42→22:11)
[2017-04-01] MEDS: PROMETHAZINE HCL 25 MG SUPP RECTAL PRN ×3 (03:43→15:38)
[2017-04-01] MEDS: INSULIN ASPART SUPPLEMENTAL SCALE SQ SCH ×4 (06:00→18:00)
--- NOTE | 2017-04-01 07:12 | HHI.PR ---
Subjective Remarks Complains of her throat being irritated from the NG tube. Not able to do SBFT yesterday due to barium still present. She has less pain. Objective Vitals Vital Signs Date Time Temp Pulse Resp B/P (MAP) Pulse Ox O2 Delivery O2 Flow Rate FiO2 04/01/17 00:00 95.9 88 18 125/79 (94) 97 03/31/17 20:00 97.6 86 20 138/77 (97) 98 03/31/17 17:42 20 03/31/17 16:00 98.0 90 20 145/76 (99) 97 03/31/17 12:00 98.0 98 20 161/95 (117) 97 03/31/17 08:00 98.0 81 22 100/71 (81) 97 Result Diagram: 03/31/17 0445 03/31/17 0445 Other Results Laboratory Tests Test 03/30/17 08:30 03/31/17 04:45 Urine Collection Type CLEAN CATCH Urine Color STRAW Urine Turbidity CLEAR Urine pH 6.0 Urine Specific [place] 1.025 Urine Protein TRACE mg/dL Urine Glucose (UA) 100 mg/dL Urine Ketones 80 OR GREATER mg/dL Urine Occult Blood SMALL Urine Nitrite NEG Urine Bilirubin NEG Urine Leukocyte Esterase NEG Urine RBC 0-3 /hpf Urine WBC 3-5 /hpf Urine Squamous Epithelial Cells 0-5 /hpf Microscopic Urinalysis Comment CULT NOT INDICATED White Blood Count 14.1 TH/MM3 Red Blood Count 5.05 MIL/MM3 Hemoglobin 14.4 GM/DL Hematocrit 42.9 % Mean Corpuscular Volume 85.0 FL Mean Corpuscular Hemoglobin 28.5 PG Mean Corpuscular Hemoglobin Concent 33.5 % Red Cell Distribution Width 11.8 % Platelet Count 287 TH/MM3 Mean Platelet Volume 7.7 FL Neutrophils (%) (Auto) 74.6 % Lymphocytes (%) (Auto) 16.0 % Monocytes (%) (Auto) 8.5 % Eosinophils (%) (Auto) 0.7 % Basophils (%) (Auto) 0.2 % Neutrophils # (Auto) 10.5 TH/MM3 Lymphocytes # (Auto) 2.3 TH/MM3 Monocytes # (Auto) 1.2 TH/MM3 Eosinophils # (Auto) 0.1 TH/MM3 Basophils # (Auto) 0.0 TH/MM3 CBC Comment DIFF FINAL Differential Comment Blood Urea Nitrogen 7 MG/DL Creatinine 0.53 MG/DL Random Glucose 152 MG/DL Calcium Level 8.8 MG/DL Sodium Level 141 MEQ/L Potassium Level 3.5 MEQ/L Chloride Level 108 MEQ/L Carbon Dioxide Level 19.8 MEQ/L Anion Gap 13 MEQ/L Estimat Glomerular Filtration Rate 122 ML/MIN Imaging Last Impressions Abdomen X-Ray 03/29/17 0000 Signed Impressions: Service Date/Time: Wednesday, March 29, 2017 13:26 - CONCLUSION: 1. Moderate amount of residual barium throughout the colon which would obscure small bowel follow-through. 2. Nonobstructive bowel gas pattern. Rolly Padilla MD Abdomen CT 03/27/17 0000 Signed Impressions: Service Date/Time: Tuesday, March 28, 2017 00:27 - CONCLUSION: 1. Normal CT appearance of the pancreas. 2. Gastric tube tip in the stomach. Hung Mason MD Last Impressions Abdomen X-Ray 03/27/17 0000 Signed Impressions: Service Date/Time: Monday, March 27, 2017 10:59 - CONCLUSION: Unremarkable abdomen. Residual contrast in the colon. Status post cholecystectomy.. Kiko Justin MD Abdomen CT 03/27/17 0000 Signed Impressions: Service Date/Time: Tuesday, March 28, 2017 00:27 - CONCLUSION: 1. Normal CT appearance of the pancreas. 2. Gastric tube tip in the stomach. Hung Mason MD Objective Remarks Exam: Pleasant white female in no obvious distress. NG tube in place. HEENT: No scleral icterus, pupils equal, Neck: No JVD Lungs: Clear Heart: RRR with no murmur Abdomen: Soft, no significant tenderness, no distension today, no masses Extremities: No edema Neuro: Alert, oriented A/P Assessment and Plan Assessment: --Abdominal pain and bloating--improved (NG tube still in) --Gastroparesis --Insulin dependent diabetes mellitus with neuropathy --Hypertension --Hyperlipidemia --GERD/Hiatal hernia Plan: Continue Reglan. Will talk with GI to see if can just try pulling her NG tube and try liquid diet. Continue IV fluids. SBFT when able to do. Lewis Jacob MD Apr 01, 2017 07:12
[2017-04-01 08:00] VITALS: BP 161/71; PULSE 80; RESP 20; TEMP 96.9; O2SAT 99
[2017-04-01] MEDS: PANTOPRAZOLE SODIUM 40 MG VIAL IV PUSH SCH (09:00)
[2017-04-01 16:00] VITALS: BP 149/74; PULSE 93; TEMP 97.1; O2SAT 93
[2017-04-01] MEDS: SODIUM CHLOR 0.9% 1000 ML INJ 1,000 ML IV SCH (18:12)
--- NOTE | 2017-04-01 19:47 | HHI.GIFU ---
Subjective Remarks Patient laying comfortably in bed she was complaining of sore throat she had the NG tube pulled out this morning she has been tolerating clear liquids all day denies any nausea or vomiting and clearly states that she is feeling better Objective Vitals I&O Vital Signs Date Time Temp Pulse Resp B/P (MAP) Pulse Ox O2 Delivery O2 Flow Rate FiO2 04/01/17 18:11 18 04/01/17 16:00 97.1 93 149/74 (99) 93 04/01/17 08:00 96.9 80 20 161/71 (101) 99 04/01/17 00:00 95.9 88 18 125/79 (94) 97 03/31/17 20:00 97.6 86 20 138/77 (97) 98 I/O 03/31/17 03/31/17 03/31/17 04/01/17 04/01/17 04/01/17 07:00 15:00 23:00 07:00 15:00 23:00 Intake Total 1648 ml 739 ml Output Total 200 ml Balance 1648 ml 539 ml Intake IV Total 1648 ml 739 ml Output Gastric Drainage Total 200 ml Laboratory Laboratory Tests Test 04/01/17 08:50 Lipase 185 Imaging Last 48 hours Impressions Abdomen X-Ray 03/31/17 0000 Signed Impressions: Service Date/Time: Friday, March 31, 2017 09:15 - CONCLUSION: No acute disease. Joe Heard MD Physical Exam HEENT: normocephalic; atraumatic; no jaundice. NGT to suction, yellowish output CHEST: CTA CARDIAC: RRR ABDOMEN: Soft, nondistended, nontender; no hepatosplenomegaly; bowel sounds are present old quarters EXTREMITIES: No clubbing, cyanosis, or edema. SKIN: Normal; no rash; no jaundice. BLUEPRINT ASSEMBLER: No focal deficits; alert and oriented times three. Assessment and Plan Plan ASSESSMENT - Abdominal distention, with abdominal pain and nausea - And currently with large amount of NG return 900 cc today. unclear etiology r/o obstruction. KUB yesterday showed residual barium that would obscure SBFT , will retry for tomorrow. she has had GES before, 2 unremarkable and 1 that was borderline, will consider repeating 03/31/2017 she was still having abdominal discomfort, did not have small bowel follow-through because of contrast in the colon, she is having neck discomfort from the NG tube PLAN -Patient seems to be doing better and tolerating clear liquids apparently she is responding at this point to Reglan with erythromycin -I doubt the need for a small bowel follow-through at this point -If patient is able to tolerate intake in the morning then she may be discharged from a GI standpoint follow-up as an outpatient -She will need to be discharged on Reglan with erythromycin -Continue with current supportive care Salas Krishnamurthy MD Apr 01, 2017 19:47
[2017-04-01 20:00] VITALS: BP 130/58; PULSE 103; RESP 19; TEMP 99.4; O2SAT 93
[2017-04-01] MEDS: PHENOL 1.4% SOLN 180 ML BTL OROPHARYNG PRN (20:37)
[2017-04-02] VITALS: BP 128/70; PULSE 102; RESP 18; TEMP 99.8; O2SAT 90
[2017-04-02] MEDS: METOCLOPRAMIDE HCL 10 MG/2 ML VIAL IV PUSH SCH ×5 (00:42→23:20)
[2017-04-02] MEDS: PROMETHAZINE HCL 25 MG SUPP RECTAL PRN ×3 (00:43→23:28)
[2017-04-02] MEDS: HYDROmorphone HCL PF 1 MG/ML VIAL IV PUSH PRN ×5 (00:44→20:23)
[2017-04-02] MEDS: INSULIN ASPART SUPPLEMENTAL SCALE SQ SCH ×5 (00:50→20:37)
[2017-04-02] MEDS: SODIUM CHLOR 0.9% 1000 ML INJ 1,000 ML IV SCH (03:51)
[2017-04-02] MEDS: SODIUM CHLORIDE 0.9% IV SCH ×4 (04:55→23:20)
[2017-04-02] MEDS: [UNRECOGNIZED DRUG - OTHER] IV SCH ×4 (04:55→23:20)
[2017-04-02 08:00] VITALS: BP 127/67; PULSE 102; RESP 20; TEMP 98.8; O2SAT 93
[2017-04-02 08:45] LABS: AUTOMATED NEUTROPHIL # 10.9 TH/MM3 (1.8-7.7); BASOPHIL # 0.1 TH/MM3 (0-0.2); BASOPHIL % 0.7 % (0.0-2.0); BICARBONATE 22.4 MEQ/L (21.0-32.0); EOSINOPHIL # 0.1 TH/MM3 (0-0.4); EOSINOPHIL % 0.9 % (0.0-4.0); HEMO FLAGS DIFF FINAL; LYMPH % 18.3 % (9.0-44.0); LYMPHOCYTE # 2.7 TH/MM3 (1.0-4.8); MEAN CELL VOLUME 84.8 FL (80.0-100.0); MEAN CORPUSCULAR HEMOGLOBIN 28.7 PG (27.0-34.0); MEAN CORPUSCULAR HGB CONC 33.8 % (32.0-36.0); MONO % 7.7 % (0.0-8.0); NEUT % 72.4 % (16.0-70.0); PLATELET COUNT 298 TH/MM3 (150-450); RED BLOOD COUNT 4.72 MIL/MM3 (4.00-5.30); RED CELL DISTRIBUTION WIDTH 11.9 % (11.6-17.2); WHITE BLOOD COUNT 14.9 TH/MM3 (4.0-11.0)
[2017-04-02] MEDS: ONDANSETRON HCL 4 MG/2 ML VIAL IV PUSH PRN ×2 (09:26→20:23)
[2017-04-02] MEDS: PANTOPRAZOLE SODIUM 40 MG VIAL IV PUSH SCH (09:26)
[2017-04-02] MEDS: SODIUM CHLORIDE 0.9% FLUSH 10 ML FLUSH IV FLUSH PRN (09:26)
[2017-04-02] MEDS: PHENOL 1.4% SOLN 180 ML BTL OROPHARYNG PRN (09:38)
--- NOTE | 2017-04-02 10:11 | HHI.PR ---
Subjective Remarks NG tube removed yesterday and she has been taking a liquid diet. Still has slight epigastric discomfort. No bowel movement. Throat less sore today with the Chloraseptic spray Objective Vitals Vital Signs Date Time Temp Pulse Resp B/P (MAP) Pulse Ox O2 Delivery O2 Flow Rate FiO2 04/02/17 00:00 99.8 102 18 128/70 (89) 90 04/01/17 20:00 99.4 103 19 130/58 (82) 93 04/01/17 18:11 18 04/01/17 16:00 97.1 93 149/74 (99) 93 Result Diagram: 04/02/17 0640 04/02/17 0640 Other Results Laboratory Tests Test 04/01/17 08:50 04/02/17 06:40 Lipase 185 U/L White Blood Count 14.9 TH/MM3 Red Blood Count 4.72 MIL/MM3 Hemoglobin 13.6 GM/DL Hematocrit 40.0 % Mean Corpuscular Volume 84.8 FL Mean Corpuscular Hemoglobin 28.7 PG Mean Corpuscular Hemoglobin Concent 33.8 % Red Cell Distribution Width 11.9 % Platelet Count 298 TH/MM3 Mean Platelet Volume 7.6 FL Neutrophils (%) (Auto) 72.4 % Lymphocytes (%) (Auto) 18.3 % Monocytes (%) (Auto) 7.7 % Eosinophils (%) (Auto) 0.9 % Basophils (%) (Auto) 0.7 % Neutrophils # (Auto) 10.9 TH/MM3 Lymphocytes # (Auto) 2.7 TH/MM3 Monocytes # (Auto) 1.1 TH/MM3 Eosinophils # (Auto) 0.1 TH/MM3 Basophils # (Auto) 0.1 TH/MM3 CBC Comment DIFF FINAL Differential Comment Blood Urea Nitrogen 4 MG/DL Creatinine 0.42 MG/DL Random Glucose 151 MG/DL Calcium Level 8.7 MG/DL Sodium Level 142 MEQ/L Potassium Level 3.0 MEQ/L Chloride Level 108 MEQ/L Carbon Dioxide Level 22.4 MEQ/L Anion Gap 12 MEQ/L Estimat Glomerular Filtration Rate 160 ML/MIN Imaging Last Impressions Abdomen X-Ray 03/31/17 0000 Signed Impressions: Service Date/Time: Friday, March 31, 2017 09:15 - CONCLUSION: No acute disease. Joe Heard MD Abdomen CT 03/27/17 0000 Signed Impressions: Service Date/Time: Tuesday, March 28, 2017 00:27 - CONCLUSION: 1. Normal CT appearance of the pancreas. 2. Gastric tube tip in the stomach. Hung Mason MD Last Impressions Abdomen X-Ray 03/29/17 0000 Signed Impressions: Service Date/Time: Wednesday, March 29, 2017 13:26 - CONCLUSION: 1. Moderate amount of residual barium throughout the colon which would obscure small bowel follow-through. 2. Nonobstructive bowel gas pattern. Rolly Padilla MD Abdomen CT 03/27/17 0000 Signed Impressions: Service Date/Time: Tuesday, March 28, 2017 00:27 - CONCLUSION: 1. Normal CT appearance of the pancreas. 2. Gastric tube tip in the stomach. Hung Mason MD Last Impressions Abdomen X-Ray 03/27/17 0000 Signed Impressions: Service Date/Time: Monday, March 27, 2017 10:59 - CONCLUSION: Unremarkable abdomen. Residual contrast in the colon. Status post cholecystectomy.. Kiko Justin MD Abdomen CT 03/27/17 0000 Signed Impressions: Service Date/Time: Tuesday, March 28, 2017 00:27 - CONCLUSION: 1. Normal CT appearance of the pancreas. 2. Gastric tube tip in the stomach. Hung Mason MD Objective Remarks Exam: Pleasant white female in no obvious distress. NG tube no longer present HEENT: No scleral icterus, pupils equal, Neck: No JVD Lungs: Clear Heart: RRR with no murmur Abdomen: Soft, minimal epigastric tenderness, no distension today, no masses Extremities: No edema Neuro: Alert, oriented A/P Assessment and Plan Assessment: --Abdominal pain and bloating--NG tube removed on 04-01-17. Still some abdominal complaints with liquid diet --Gastroparesis --Insulin dependent diabetes mellitus with neuropathy --Hypertension --Hyperlipidemia --GERD/Hiatal hernia --Hypokalemia --Mild increased WBC of questionable cause (no fever) Plan: Continue Reglan. Continue IV fluids. Will order SBFT for today. Order chest x-ray also. Check Lewis Mcclendon MD Apr 02, 2017 10:11
[2017-04-02] MEDS ORDERED: MAGNESIUM CITRATE SOLN 300 ML BTL PO ONE (11:15)
--- NOTE | 2017-04-02 11:41 | RADRPT ---
EXAM DATE/TIME: 04/02/2017 10:44 [facility] COMPARISON: CHEST SINGLE AP, December 23, 2016, 1:48. INDICATIONS : Relative decreased oximetry. MEDICAL HISTORY : Hypercholesterolemia. Hypertension Gastroesophageal reflux disease. Neuropathy. Sleep apnea. Diab etic. Arthritis. Gastroparesis. Delayed gastric emptying, SURGICAL HISTORY : Cholecystectomy. section. Tubal ligation. ENCOUNTER: Subsequent ACUITY: 4 - 6 days PAIN SCORE: 0/10 LOCATION: chest FINDINGS: PA and lateral views of the chest. Moderate severity predominantly linear opacities at the lung bases bilaterally. The mid to upper lung zones are clear. No evidence of pleural effusion or pneumothorax. Cardiomediastinal silhouette within normal limits. CONCLUSION: Bilateral lower lung zone pulmonary opacity indicating atelectasis versus consolidation. Iván Galvan MD on April 02, 2017 at 11:38 Board Certified Radiologist. This report was verified electronically.
[2017-04-02 12:00] VITALS: BP 136/78; PULSE 99; RESP 14; TEMP 95.4; O2SAT 95
--- NOTE | 2017-04-02 13:01 | HHI.GIFU ---
Subjective Remarks Patient sitting in the bed, laying of some discomfort in her abdomen, NG tube out, tolerating liquid diet, did not have her small bowel follow-through Objective Vitals I&O Vital Signs Date Time Temp Pulse Resp B/P (MAP) Pulse Ox O2 Delivery O2 Flow Rate FiO2 04/02/17 08:00 98.8 102 20 127/67 (87) 93 04/02/17 00:00 99.8 102 18 128/70 (89) 90 04/01/17 20:00 99.4 103 19 130/58 (82) 93 04/01/17 18:11 18 04/01/17 16:00 97.1 93 149/74 (99) 93 I/O 04/01/17 04/01/17 04/01/17 04/02/17 04/02/17 04/02/17 07:00 15:00 23:00 07:00 15:00 23:00 Intake Total 739 ml 898 ml 1440 ml 450 ml Output Total 200 ml 4 ml 2 ml Balance 539 ml 894 ml 1438 ml 450 ml Intake Oral 720 ml 480 ml IV Total 739 ml 178 ml 960 ml 450 ml Output Urine Total 4 ml 2 ml Gastric Drainage Total 200 ml # Bowel Movements 1 0 Laboratory Laboratory Tests Test 04/02/17 06:40 White Blood Count 14.9 Red Blood Count 4.72 Hemoglobin 13.6 Hematocrit 40.0 Mean Corpuscular Volume 84.8 Mean Corpuscular Hemoglobin 28.7 Mean Corpuscular Hemoglobin Concent 33.8 Red Cell Distribution Width 11.9 Platelet Count 298 Mean Platelet Volume 7.6 Neutrophils (%) (Auto) 72.4 Lymphocytes (%) (Auto) 18.3 Monocytes (%) (Auto) 7.7 Eosinophils (%) (Auto) 0.9 Basophils (%) (Auto) 0.7 Neutrophils # (Auto) 10.9 Lymphocytes # (Auto) 2.7 Monocytes # (Auto) 1.1 Eosinophils # (Auto) 0.1 Basophils # (Auto) 0.1 CBC Comment DIFF FINAL Differential Comment Blood Urea Nitrogen 4 Creatinine 0.42 Random Glucose 151 Calcium Level 8.7 Sodium Level 142 Potassium Level 3.0 Chloride Level 108 Carbon Dioxide Level 22.4 Anion Gap 12 Estimat Glomerular Filtration Rate 160 Physical Exam HEENT: normocephalic; atraumatic; no jaundice. NGT to suction, yellowish output CHEST: CTA CARDIAC: RRR ABDOMEN: Soft, mild distention and mild tenderness, nontender; no hepatosplenomegaly; bowel sounds are present old quarters EXTREMITIES: No clubbing, cyanosis, or edema. SKIN: Normal; no rash; no jaundice. ADMINISTRATIVE AIDE: No focal deficits; alert and oriented times three. Assessment and Plan Plan ASSESSMENT - Abdominal distention, with abdominal pain and nausea - And currently with large amount of NG return 900 cc today. unclear etiology r/o obstruction. KUB yesterday showed residual barium that would obscure SBFT , will retry for tomorrow. she has had GES before, 2 unremarkable and 1 that was borderline, will consider repeating 03/31/2017 she was still having abdominal discomfort, did not have small bowel follow-through because of contrast in the colon, she is having neck discomfort from the NG tube 04/02/2017 patient is doing okay, tolerating liquid diet, still abdominal discomfort, I am going to give her a bottle of mag citrate. Over the contrast in the colon and will proceed with small bowel follow-through today PLAN -Patient seems to be doing better and tolerating clear liquids apparently she is responding at this point to Reglan with erythromycin -She will need to be discharged on Reglan with erythromycin -Continue with current supportive care Bennie Ortega MD Apr 02, 2017 13:01
[2017-04-02] MEDS: NS + KCL 20 MEQ INJ 1,000 ML IV SCH ×2 (13:23→23:21)
[2017-04-02 16:00] VITALS: BP 119/67; PULSE 80; RESP 19; TEMP 97.3; O2SAT 94
[2017-04-02] MEDS ORDERED: diphenhydrAMINE HCL 25 MG CAP PO PRN (19:45)
[2017-04-02 20:00] VITALS: BP 116/62; PULSE 87; RESP 20; TEMP 98.8; O2SAT 94
[2017-04-02] MEDS ORDERED: GLUCAGON 1 MG/ML VIAL OTHER PRN (20:00)
[2017-04-02] MEDS ORDERED: INSULIN ASPART SUPPLEMENTAL SCALE SQ SCH (20:00)
[2017-04-02] MEDS ORDERED: DEXTROSE 50% IN WATER 50 ML SYRINGE IV PRN (20:00)
[2017-04-02] MEDS: POTASSIUM CHLORIDE 20 MEQ CONTROLLED RELEASE TAB PO SCH (20:23)
[2017-04-02 23:38] VITALS: BP 121/72; PULSE 91; RESP 20; TEMP 96.2; O2SAT 96
[2017-04-03] MEDS: INSULIN ASPART SUPPLEMENTAL SCALE SQ SCH ×3 (02:00→14:44)
[2017-04-03] MEDS: [UNRECOGNIZED DRUG - OTHER] IV SCH ×2 (03:16→10:56)
[2017-04-03] MEDS: SODIUM CHLORIDE 0.9% IV SCH ×2 (03:16→10:56)
[2017-04-03] MEDS: HYDROmorphone HCL PF 1 MG/ML VIAL IV PUSH PRN ×2 (04:11→10:57)
[2017-04-03] MEDS: ONDANSETRON HCL 4 MG/2 ML VIAL IV PUSH PRN ×2 (04:11→10:57)
[2017-04-03 05:08] LABS: BLOOD, URINE NEG (NEG); GLUCOSE,URINE 250 mg/dL (NEG); KETONE, URINE 80 OR GREATER mg/dL (NEG); NITRITE,URINE NEG (NEG)
[2017-04-03 05:10] LABS: URINE COLOR YELLOW (YELLW/STRAW)
[2017-04-03 05:12] LABS: BACTERIA, URINE MOD /hpf; RBC, URINE 0-2 /hpf (0-3)
[2017-04-03 05:13] LABS: COMMENT (UR) CULTURE INDICATED; CULTURE IF INDICATED CULTURE INDICATED
[2017-04-03] MEDS: METOCLOPRAMIDE HCL 10 MG/2 ML VIAL IV PUSH SCH ×2 (05:55→10:57)
[2017-04-03] MEDS: PROMETHAZINE HCL 25 MG SUPP RECTAL PRN (06:03)
[2017-04-03 07:43] LABS: POTASSIUM 3.1 MEQ/L (3.5-5.1)
[2017-04-03 07:46] LABS: BICARBONATE 23.9 MEQ/L (21.0-32.0)
[2017-04-03 07:51] LABS: AUTOMATED NEUTROPHIL # 6.7 TH/MM3 (1.8-7.7); BASOPHIL # 0.1 TH/MM3 (0-0.2); BASOPHIL % 0.6 % (0.0-2.0); EOSINOPHIL # 0.2 TH/MM3 (0-0.4); EOSINOPHIL % 2.3 % (0.0-4.0); HEMATOCRIT 37.5 % (35.0-46.0); HEMO FLAGS DIFF FINAL; LYMPHOCYTE # 2.7 TH/MM3 (1.0-4.8); MEAN CELL VOLUME 85.5 FL (80.0-100.0); MEAN CORPUSCULAR HGB CONC 32.8 % (32.0-36.0); MONO % 7.5 % (0.0-8.0); NEUT % 63.6 % (16.0-70.0); PLATELET COUNT 313 TH/MM3 (150-450); RED BLOOD COUNT 4.39 MIL/MM3 (4.00-5.30); RED CELL DISTRIBUTION WIDTH 12.3 % (11.6-17.2); WHITE BLOOD COUNT 10.5 TH/MM3 (4.0-11.0)
[2017-04-03] MEDS ORDERED: POTASSIUM CHLORIDE 20 MEQ CONTROLLED RELEASE TAB PO ONE (08:00)
--- NOTE | 2017-04-03 08:06 | HHI.PR ---
Subjective Remarks Was given Mag Citrate yesterday with good response. Dr Truong has ordered a SBFT today. She states she did have some intermittent cramps in her abdomen last night. Her UA suggests she has a UTI. Objective Vitals Vital Signs Date Time Temp Pulse Resp B/P (MAP) Pulse Ox O2 Delivery O2 Flow Rate FiO2 04/02/17 23:38 96.2 91 20 121/72 (88) 96 04/02/17 20:00 98.8 87 20 116/62 (80) 94 04/02/17 16:00 97.3 80 19 119/67 (84) 94 04/02/17 15:24 18 04/02/17 12:00 95.4 99 14 136/78 (97) 95 Result Diagram: 04/03/17 0716 04/03/17 0716 Other Results Laboratory Tests Test 04/01/17 08:50 04/02/17 06:40 04/03/17 05:00 04/03/17 07:16 Lipase 185 U/L White Blood Count 14.9 TH/MM3 10.5 TH/MM3 Red Blood Count 4.72 MIL/MM3 4.39 MIL/MM3 Hemoglobin 13.6 GM/DL 12.3 GM/DL Hematocrit 40.0 % 37.5 % Mean Corpuscular Volume 84.8 FL 85.5 FL Mean Corpuscular Hemoglobin 28.7 PG 28.0 PG Mean Corpuscular Hemoglobin Concent 33.8 % 32.8 % Red Cell Distribution Width 11.9 % 12.3 % Platelet Count 298 TH/MM3 313 TH/MM3 Mean Platelet Volume 7.6 FL 7.6 FL Neutrophils (%) (Auto) 72.4 % 63.6 % Lymphocytes (%) (Auto) 18.3 % 26.0 % Monocytes (%) (Auto) 7.7 % 7.5 % Eosinophils (%) (Auto) 0.9 % 2.3 % Basophils (%) (Auto) 0.7 % 0.6 % Neutrophils # (Auto) 10.9 TH/MM3 6.7 TH/MM3 Lymphocytes # (Auto) 2.7 TH/MM3 2.7 TH/MM3 Monocytes # (Auto) 1.1 TH/MM3 0.8 TH/MM3 Eosinophils # (Auto) 0.1 TH/MM3 0.2 TH/MM3 Basophils # (Auto) 0.1 TH/MM3 0.1 TH/MM3 CBC Comment DIFF FINAL DIFF FINAL Differential Comment Blood Urea Nitrogen 4 MG/DL 2 MG/DL Creatinine 0.42 MG/DL 0.42 MG/DL Random Glucose 151 MG/DL 191 MG/DL Calcium Level 8.7 MG/DL 8.1 MG/DL Sodium Level 142 MEQ/L 138 MEQ/L Potassium Level 3.0 MEQ/L 3.1 MEQ/L Chloride Level 108 MEQ/L 104 MEQ/L Carbon Dioxide Level 22.4 MEQ/L 23.9 MEQ/L Anion Gap 12 MEQ/L 10 MEQ/L Estimat Glomerular Filtration Rate 160 ML/MIN 160 ML/MIN Urine Color YELLOW Urine Turbidity SLIGHT Urine pH 6.0 Urine Specific [place] 1.017 Urine Protein NEG mg/dL Urine Glucose (UA) 250 mg/dL Urine Ketones 80 OR GREATER mg/dL Urine Occult Blood NEG Urine Nitrite NEG Urine Bilirubin NEG Urine Leukocyte Esterase TRACE Urine RBC 0-2 /hpf Urine WBC 25-49 /hpf Urine Squamous Epithelial Cells 6-8 /hpf Urine Bacteria MOD /hpf Urine Yeast (Budding) MOD Microscopic Urinalysis Comment CULTURE INDICATED Imaging Last Impressions Abdomen X-Ray 03/31/17 0000 Signed Impressions: Service Date/Time: Friday, March 31, 2017 09:15 - CONCLUSION: No acute disease. Joe Heard MD Abdomen CT 03/27/17 0000 Signed Impressions: Service Date/Time: Tuesday, March 28, 2017 00:27 - CONCLUSION: 1. Normal CT appearance of the pancreas. 2. Gastric tube tip in the stomach. Hung Mason MD Last Impressions Abdomen X-Ray 03/29/17 0000 Signed Impressions: Service Date/Time: Wednesday, March 29, 2017 13:26 - CONCLUSION: 1. Moderate amount of residual barium throughout the colon which would obscure small bowel follow-through. 2. Nonobstructive bowel gas pattern. Rolly Padilla MD Abdomen CT 03/27/17 0000 Signed Impressions: Service Date/Time: Tuesday, March 28, 2017 00:27 - CONCLUSION: 1. Normal CT appearance of the pancreas. 2. Gastric tube tip in the stomach. Hung Mason MD Last Impressions Abdomen X-Ray 03/27/17 0000 Signed Impressions: Service Date/Time: Monday, March 27, 2017 10:59 - CONCLUSION: Unremarkable abdomen. Residual contrast in the colon. Status post cholecystectomy.. Kiko Justin MD Abdomen CT 03/27/17 0000 Signed Impressions: Service Date/Time: Tuesday, March 28, 2017 00:27 - CONCLUSION: 1. Normal CT appearance of the pancreas. 2. Gastric tube tip in the stomach. Hung Mason MD Objective Remarks Exam: Pleasant white female in no obvious distress. NG tube no longer present HEENT: No scleral icterus, pupils equal, Neck: No JVD Lungs: Clear Heart: RRR with no murmur Abdomen: Soft, minimal epigastric tenderness, no distension today, no masses Extremities: No edema Neuro: Alert, oriented A/P Assessment and Plan Assessment: --Abdominal pain and bloating--NG tube removed on 04-01-17. Still some abdominal complaints with liquid diet --Gastroparesis --UTI --Insulin dependent diabetes mellitus with neuropathy --Hypertension --Hyperlipidemia --GERD/Hiatal hernia --Hypokalemia Plan: Continue Reglan. Continue IV fluids. Potassium amount increased in her IV fluids. Will order SBFT for today. Order chest x-ray also. I will give her some Rocephin IV x one dose and then put her on Cipro po Lewis Jacob MD Apr 03, 2017 08:06
[2017-04-03] MEDS ORDERED: cefTRIAXone INJ 1,000 MG in SODIUM CHLORIDE 0.9% INJ 100 ML IV ONE (08:15)
[2017-04-03 08:31] VITALS: BP 115/59; PULSE 83; RESP 16; TEMP 98.4; O2SAT 94
[2017-04-03] MEDS: PANTOPRAZOLE SODIUM 40 MG VIAL IV PUSH SCH (08:31)
[2017-04-03] MEDS: POTASSIUM CHLORIDE 20 MEQ CONTROLLED RELEASE TAB PO SCH (08:32)
[2017-04-03] MEDS: NS + KCL 20 MEQ INJ 1,000 ML IV SCH (08:32)
[2017-04-03] MEDS ORDERED: CIPROFLOXACIN 500 MG TAB PO SCH (09:00)
[2017-04-03] MEDS ORDERED: DIATRIZOATE MEGLUM/DIATRIZOATE SOD 120 ML BTL (for RAD DIAG) PO ONE (09:00)
--- NOTE | 2017-04-03 10:29 | HHI.GIFU ---
Subjective Remarks Up in bathroom. Just had small bowel follow through and is now having diarrhea and nausea. States she does not feel well since she had the test. (Radha Levine) Objective Vitals I&O Vital Signs Date Time Temp Pulse Resp B/P (MAP) Pulse Ox O2 Delivery O2 Flow Rate FiO2 04/03/17 08:31 98.4 83 16 115/59 (77) 94 04/02/17 23:38 96.2 91 20 121/72 (88) 96 04/02/17 20:00 98.8 87 20 116/62 (80) 94 04/02/17 16:00 97.3 80 19 119/67 (84) 94 04/02/17 15:24 18 04/02/17 12:00 95.4 99 14 136/78 (97) 95 I/O 04/02/17 04/02/17 04/02/17 04/03/17 04/03/17 04/03/17 07:00 15:00 23:00 07:00 15:00 23:00 Intake Total 1440 ml 550 ml 2030 ml 2163 ml 187 ml Output Total 2 ml Balance 1438 ml 550 ml 2030 ml 2163 ml 187 ml Intake Oral 480 ml 1480 ml 580 ml IV Total 960 ml 550 ml 550 ml 1583 ml 187 ml Output Urine Total 2 ml # Voids 6 2 # Bowel Movements 0 5 0 Laboratory Laboratory Tests Test 04/03/17 05:00 04/03/17 07:16 Urine Color YELLOW Urine Turbidity SLIGHT Urine pH 6.0 Urine Specific [place] 1.017 Urine Protein NEG Urine Glucose (UA) 250 Urine Ketones 80 OR GREATER Urine Occult Blood NEG Urine Nitrite NEG Urine Bilirubin NEG Urine Leukocyte Esterase TRACE Urine RBC 0-2 Urine WBC 25-49 Urine Squamous Epithelial Cells 6-8 Urine Bacteria MOD Urine Yeast (Budding) MOD Microscopic Urinalysis Comment CULTURE INDICATED White Blood Count 10.5 Red Blood Count 4.39 Hemoglobin 12.3 Hematocrit 37.5 Mean Corpuscular Volume 85.5 Mean Corpuscular Hemoglobin 28.0 Mean Corpuscular Hemoglobin Concent 32.8 Red Cell Distribution Width 12.3 Platelet Count 313 Mean Platelet Volume 7.6 Neutrophils (%) (Auto) 63.6 Lymphocytes (%) (Auto) 26.0 Monocytes (%) (Auto) 7.5 Eosinophils (%) (Auto) 2.3 Basophils (%) (Auto) 0.6 Neutrophils # (Auto) 6.7 Lymphocytes # (Auto) 2.7 Monocytes # (Auto) 0.8 Eosinophils # (Auto) 0.2 Basophils # (Auto) 0.1 CBC Comment DIFF FINAL Differential Comment Blood Urea Nitrogen 2 Creatinine 0.42 Random Glucose 191 Calcium Level 8.1 Sodium Level 138 Potassium Level 3.1 Chloride Level 104 Carbon Dioxide Level 23.9 Anion Gap 10 Estimat Glomerular Filtration Rate 160 Date/Time Source Procedure Growth Status 04/03/17 05:00 Urine Clean Catch Urine Culture Pending Received Imaging Last Impressions Chest X-Ray 04/02/17 0000 Signed Impressions: Service Date/Time: March 10:44 - CONCLUSION: Bilateral lower lung zone pulmonary opacity indicating atelectasis versus consolidation. Iván Galvan MD Abdomen X-Ray 03/31/17 0000 Signed Impressions: Service Date/Time: Friday, March 31, 2017 09:15 - CONCLUSION: No acute disease. Joe Heard MD Abdomen CT 03/27/17 0000 Signed Impressions: Service Date/Time: Tuesday, March 28, 2017 00:27 - CONCLUSION: 1. Normal CT appearance of the pancreas. 2. Gastric tube tip in the stomach. Hung Mason MD Physical Exam HEENT: normocephalic; atraumatic; no jaundice. CHEST: CTA CARDIAC: RRR ABDOMEN: Soft, mild distention and mild tenderness, nontender; no hepatosplenomegaly; bowel sounds are present EXTREMITIES: No clubbing, cyanosis, or edema. SKIN: Normal; no rash; no jaundice. MANAGER FINE: No focal deficits; alert and oriented times three. (Radha Levine) Assessment and Plan Plan ASSESSMENT - Abdominal distention, with abdominal pain and nausea. She has had GES before , 2 unremarkable and 1 that was borderline, will consider repeating. CT abdomen with iv contrast (03/28/17)---> normal ct appearance of the pancreas. Gastric tube tip in the stomach. KUB (03/31/17)--> no acute disease. S/P Magnesium citrate. S/P SBFT today, results pending although according to tech, she is not obstructed and passed at 45 minutes. Pt has had multiple liquid stools since arriving back to floor. She continues to have nausea. PPI. Will give full liquids, await official report. - UTI, Cipro. Cx pending. - GERD, HH. PPI - HTN, Hyperlipidemia, hypokalemia per attending PLAN: - Full liquids - Cont. PPI - Await SBFT results - Reglan/erythromycin - Supportive care - Further recommendations to follow based on results of above - Pt seen and examined by Dr. Ortega and myself and this note is written on his behalf (Radha Levine) Plan Agree with above Notes, we will wait for the results of the small bowel follow- through, start diet as tolerated (Bennie Ortega MD) Radha Levine Apr 03, 2017 10:29 Bennie Ortega MD Apr 03, 2017 11:25
--- NOTE | 2017-04-03 10:30 | RADRPT ---
EXAM DATE/TIME: 04/03/2017 08:42 [facility] COMPARISON: No previous studies available for comparison. INDICATIONS : Obstruction. Abdominal pain and constipation. FLUORO TIME: 0 minutes IMAGE COUNT: 8 CONTRAST: Gastrosusana IMAGING TIME(S): 15 min, 30 min, 45 min MEDICAL HISTORY : Gastroparesis. Gastroesophageal reflux disease. SURGICAL HISTORY : Cholecystectomy. section. ENCOUNTER: Subsequent ACUITY: 1 week PAIN SCORE: 3/10 LOCATION: Bilateral lower quadrant upper quadrant abdomen FINDINGS: Preliminary sewing machine operator semiautomatic film reveals minimal transverse colon gas. Following oral ingestion of Gastrografin serial images were obtained. Gastrografin does become very dilute but there are no constricting or obstructing lesions identified. Contrast is seen throughout the colon in 45 minutes. CONCLUSION: Negative for obstruction. Transient time to rectum is 45 minutes. Wenceslao Burk MD FACR on April 03, 2017 at 10:20 Board Certified Radiologist. This report was verified electronically.
[2017-04-03 12:45] VITALS: BP 105/64; PULSE 93; RESP 18; TEMP 97.7; O2SAT 92
[2017-04-03] MEDS ORDERED: ERYT250T13 PO (14:05)
[2017-04-03] MEDS ORDERED: CIPR-9 PO (14:05)
[2017-04-03] MEDS ORDERED: PANT40TA3 PO (14:05)
[2017-04-03] MEDS ORDERED: POTA20TA5 PO (14:16)
--- NOTE | 2017-04-03 14:41 | HHI.DS ---
Discharge Summary Admission Date Mar 31, 2017 at 10:42 Discharge Date: Apr 03, 2017 Admitting Diagnosis DEHYDRATION,GASTROPARESIS,ELEVATED LIPASE/GLUCOSE (1) Nonspecific abdominal pain Diagnosis: Principal ICD Codes: R10.9 - Unspecified abdominal pain (2) Abdominal bloating Diagnosis: Principal ICD Codes: R14.0 - Abdominal distension (gaseous) (3) Gastroparesis Diagnosis: Principal ICD Codes: K31.84 - Gastroparesis Status: Acute (4) Serum lipase elevation Diagnosis: Secondary ICD Codes: R74.8 - Abnormal levels of other serum enzymes Status: Acute (5) Type 2 diabetes mellitus with diabetic neuropathy Diagnosis: Secondary ICD Codes: E11.40 - Type 2 diabetes mellitus with diabetic neuropathy, unspecified (6) Urinary tract infection Diagnosis: Secondary ICD Codes: N39.0 - Urinary tract infection, site not specified (7) GERD (gastroesophageal reflux disease) Diagnosis: Secondary ICD Codes: K21.9 - GERD (gastroesophageal reflux disease) Status: Acute (8) Hypertension Diagnosis: Secondary ICD Codes: I10 - Hypertension Status: Acute (9) Depression Diagnosis: Secondary ICD Codes: F32.9 - Major depressive disorder, single episode, unspecified Status: Acute [facility] Brief History 51 year old white female with history of GERD and gastroparesis who was sent to the ER by her doctor of osteopathy (Dr Luciano) on 03-27-17. She had been having abdominal bloating and discomfort for about 3 weeks with slight worsening of her symptoms a few days prior to going to the ER. She had a CT scan of the abdomen as an outpatient on 03-25-17 that was unremarkable for a cause of her symptoms. She did not respond to outpatient Reglan either so when she was seen by Dr Luciano on 03-27-17 and not better she sent her to the ER for IV fluids and IV Reglan. She had not had any vomiting but did have nausea. No melena, fever, or rectal bleeding. CBC/BMP: 04/03/17 0716 04/03/17 0716 Significant Findings Laboratory Tests Test 03/27/17 11:15 03/27/17 12:25 03/27/17 22:10 03/30/17 08:30 Total Creatine Kinase 84 U/L Troponin I LESS THAN 0.02 NG/ML B-Type Natriuretic Peptide 7 PG/ML Urine Collection Time 12:25 Total Bilirubin 1.0 MG/DL Direct Bilirubin 0.2 MG/DL Indirect Bilirubin 0.8 MG/DL Aspartate Amino Transf (AST/SGOT) 13 U/L Alanine Aminotransferase (ALT/SGPT) 22 U/L Alkaline Phosphatase 91 U/L Total Protein 7.0 GM/DL Albumin 3.1 GM/DL Urine Collection Type CLEAN CATCH Test 04/01/17 08:50 04/03/17 05:00 04/03/17 07:16 Lipase 185 U/L Urine Color YELLOW Urine Turbidity SLIGHT Urine pH 6.0 Urine Specific [place] 1.017 Urine Protein NEG mg/dL Urine Glucose (UA) 250 mg/dL Urine Ketones 80 OR GREATER mg/dL Urine Occult Blood NEG Urine Nitrite NEG Urine Bilirubin NEG Urine Leukocyte Esterase TRACE Urine RBC 0-2 /hpf Urine WBC 25-49 /hpf Urine Squamous Epithelial Cells 6-8 /hpf Urine Bacteria MOD /hpf Urine Yeast (Budding) MOD Microscopic Urinalysis Comment CULTURE INDICATED White Blood Count 10.5 TH/MM3 Red Blood Count 4.39 MIL/MM3 Hemoglobin 12.3 GM/DL Hematocrit 37.5 % Mean Corpuscular Volume 85.5 FL Mean Corpuscular Hemoglobin 28.0 PG Mean Corpuscular Hemoglobin Concent 32.8 % Red Cell Distribution Width 12.3 % Platelet Count 313 TH/MM3 Mean Platelet Volume 7.6 FL Neutrophils (%) (Auto) 63.6 % Lymphocytes (%) (Auto) 26.0 % Monocytes (%) (Auto) 7.5 % Eosinophils (%) (Auto) 2.3 % Basophils (%) (Auto) 0.6 % Neutrophils # (Auto) 6.7 TH/MM3 Lymphocytes # (Auto) 2.7 TH/MM3 Monocytes # (Auto) 0.8 TH/MM3 Eosinophils # (Auto) 0.2 TH/MM3 Basophils # (Auto) 0.1 TH/MM3 CBC Comment DIFF FINAL Differential Comment Blood Urea Nitrogen 2 MG/DL Creatinine 0.42 MG/DL Random Glucose 191 MG/DL Calcium Level 8.1 MG/DL Sodium Level 138 MEQ/L Potassium Level 3.1 MEQ/L Chloride Level 104 MEQ/L Carbon Dioxide Level 23.9 MEQ/L Anion Gap 10 MEQ/L Estimat Glomerular Filtration Rate 160 ML/MIN Laboratory Tests Test 04/01/17 08:50 04/02/17 06:40 04/03/17 05:00 04/03/17 07:16 White Blood Count 14.9 TH/MM3 (4.0-11.0) Neutrophils (%) (Auto) 72.4 % (16.0-70.0) Neutrophils # (Auto) 10.9 TH/MM3 (1.8-7.7) Monocytes # (Auto) 1.1 TH/MM3 (0-0.9) Blood Urea Nitrogen 4 MG/DL (7-18) 2 MG/DL (7-18) Creatinine 0.42 MG/DL (0.50-1.00) 0.42 MG/DL (0.50-1.00) Random Glucose 151 MG/DL (74-106) 191 MG/DL (74-106) Potassium Level 3.0 MEQ/L (3.5-5.1) 3.1 MEQ/L (3.5-5.1) Chloride Level 108 MEQ/L (98-107) Urine Glucose (UA) 250 mg/dL (NEG) Urine Ketones 80 OR GREATER mg/dL (NEG) Urine Leukocyte Esterase TRACE (NEG) Urine WBC 25-49 /hpf (0-5) Urine Squamous Epithelial Cells 6-8 /hpf (0-5) Urine Bacteria MOD /hpf (NONE) Urine Yeast (Budding) MOD (NONE) Calcium Level 8.1 MG/DL (8.5-10.1) Imaging Last Impressions Chest X-Ray 04/02/17 0000 Signed Impressions: Service Date/Time: March 10:44 - CONCLUSION: Bilateral lower lung zone pulmonary opacity indicating atelectasis versus consolidation. Iván Galvan MD Abdomen X-Ray 03/31/17 0000 Signed Impressions: Service Date/Time: Friday, March 31, 2017 09:15 - CONCLUSION: No acute disease. Joe Heard MD Abdomen CT 03/27/17 0000 Signed Impressions: Service Date/Time: Tuesday, March 28, 2017 00:27 - CONCLUSION: 1. Normal CT appearance of the pancreas. 2. Gastric tube tip in the stomach. Hung Mason MD A small bowel series on 04-03-17 was unremarkable with no delayed transit time. PE at Discharge Exam: Pleasant white female in no obvious distress. NG tube no longer present HEENT: No scleral icterus, pupils equal, Neck: No JVD Lungs: Clear Heart: RRR with no murmur Abdomen: Soft, no significant tenderness (only minimal nonspecific epigastric tenderness), no distension today, no masses Extremities: No edema Neuro: Alert, oriented Hospital Course Patient was admitted and an NG tube was placed which gradually helped resolve her abdominal distension over time. She was given IV fluids, pain medication as needed. She had just a minimal elevated lipase on admission that reverted to normal. She was followed by gastroenterology and they attempted to do a small bowel series which could be done because of residual barium. Her condition stabilized with no further distension and still minimal nonspecific abdominal discomfort mainly in the epigastric region so it was decided to pull her NG tube and try her on liquids. Her symptoms did not worsen with liquids. She was given Magnesium citrate to help her bowels which had not moved while in the hospital and there was a good response to that. She underwent a small bowel series on 04-03-17 which was negative and no delayed transit time through the bowel. The patient seemed to be better so I talked with Dr Hidalgo today and he cleared her for discharge but said to stop the Reglan and give her Erythromycin 250mg three times a day before meals for her gastroparesis to see if that would help better than the Reglan. Her diabetes was managed with a sliding scale in the hospital since she was not eating much. She was given potassium for a low potassium level. She complained of some dysuria so a UA was done on 04-02-17 which showed findings consistent with a UTI so she was given a gram of Rocephin on the morning of 04-03-17 and written to go on oral Cipro which she will take for 5 days as an outpatient. She will resume her home diabetes medication but I told her to just use her Novolog sliding scale coverage that she has done at home before until she is eating better. She will recheck a BMP on Thursday and followup with Dr Luciano and Dr Cuellar next week. Pt Condition on Discharge: Stable Discharge Disposition: Discharge Home Discharge Instructions DIET: Follow Instructions for: Diabetic Diet Activities you can perform: Regular-No Restrictions Follow up Referrals: Gastroenterology - 3-[address] Luciano PCP Follow-up - 3-[address] Cuellar New Orders: BASIC METABOLIC PROF - 2-3 Days New Medications: Erythromycin Base (Erythromycin Base) 250 Mg Tab 250 MG PO TIDAC for Infection for 90 Days, TAB 0 Refills Ciprofloxacin (Cipro) 500 Mg Tab 500 MG PO Q12HR for UTI for 5 Days, #10 TAB Pantoprazole (Pantoprazole) 40 Mg Tab 40 MG PO DAILY for GERD, #30 TAB Potassium Chloride Microencaps (Potassium Chloride Microencaps) 20 Meq Tab 20 MEQ PO Q12HR for hyokalemia, #30 TAB Continued Medications: Carvedilol (Carvedilol) 6.25 Mg Tab 6.25 MG PO BID, #60 TAB 0 Refills Dapagliflozin (Farxiga) 5 Mg Tab 5 MG PO DAILY for Blood Sugar Management, #30 TAB [address] (Cymbalta DR) 60 Mg Capdr 60 MG PO DAILY, #30 CAP 0 Refills Insulin Aspart Inj (Novolog Inj) 1,000 Unit/10 Ml Vial 0 SQ DIRECTED for Blood Sugar Management, #10 ML 0 Refills Sliding Scale as directed. Insulin Degludec Inj (Tresiba Flextouch Pen Inj) 300 unit/3 ML Pen 60 UNITS SQ DAILY for Blood Sugar Management for 30 Days, #15 ML 0 Refills Pregabalin (Lyrica) 75 Mg Cap 75 MG PO TID, #90 CAP 0 Refills Discontinued Medications: Metoclopramide (Reglan) 10 Mg Tab 10 MG PO QID, #120 TAB 0 Refills Ondansetron Odt (Zofran Odt) 4 Mg Tab 4 MG SL Q6HR PRN for Nausea/Vomiting, #7 TAB 0 Refills Promethazine (Phenergan) 25 Mg Tablet 25 MG PO HS for Nausea/Vomiting, #1 TAB 0 Refills Lewis Jacob MD Apr 03, 2017 14:40
[2017-04-04] MEDS ORDERED: PANTOPRAZOLE SOD 40 MG DELAYED RELEASE TAB PO SCH (09:00)
== END 2017-04-03 14:59 | disposition home or self-care (01) | DRG 391 ==
LOC: PHED 10:43 → PHEDA 14:11 → PH3A 15:28 → OBSVTOIN 03-31 10:42 → PH5A 04-01 10:48
PROVIDERS: ADMIT Family Medicine; ATTEND Family Medicine
DX: R10.9 Unspecified abdominal pain (principal); K85.90 Acute pancreatitis without necrosis or infection, unspecified; K31.84 Gastroparesis; E11.43 Type 2 diabetes mellitus with diabetic autonomic (poly)neuropathy; E11.65 Type 2 diabetes mellitus with hyperglycemia; N39.0 Urinary tract infection, site not specified; E86.0 Dehydration; K21.9 Gastro-esophageal reflux disease without esophagitis; I10 Essential (primary) hypertension; F32.9 Major depressive disorder, single episode, unspecified; E78.5 Hyperlipidemia, unspecified; K44.9 Diaphragmatic hernia without obstruction or gangrene
CPT/HCPCS: 71020; 74000; 74020; 74160; 74250; 80048; 80053; 80076; 81001; 82550; 82948; 83690; 83880; 84484; 85025; 87086; 93005; 96361; 96374; 96375; 96376; C9113; G0378; J0696; J1170; J1815; J2270; J2405; J2765; J3480; J7030; Q9963; Q9967

== ENCOUNTER 2017-04-13 15:31 | Inpatient (IN) | payer OTHER ==
[~2017-04-13] VITALS: Ht 162.6 cm; Wt 98.4 kg
[~2017-04-13 15:31] MED LIST changes: +CIPR-9 PO; +DAPA1TAB PO; +ERYT250T13 PO; +NOVOLOGP2 SQ; +PANT40TA3 PO; +POTA20TA5 PO; -ZOFR4TAB3 SL
[2017-04-13 15:55] VITALS: BP 140/84; PULSE 98; RESP 18; TEMP 97.2; O2SAT 95
[2017-04-13] MEDS ORDERED: PLEASE DISCONTINUE PREVIOUS SUPPLEMENTAL SCALE INSULIN ORDERS ONE (17:00)
[2017-04-13] MEDS ORDERED: GLUCAGON 1 MG/ML VIAL OTHER PRN (17:00)
[2017-04-13] MEDS ORDERED: DEXTROSE 50% IN WATER 50 ML VIAL(D50) IV PUSH PRN (17:00)
[2017-04-13] MEDS ORDERED: NALOXONE HCL 0.4 MG/ML AMP IV PUSH PRN (17:15)
[2017-04-13] MEDS ORDERED: SENNOSIDES 8.6 MG TAB PO PRN (17:15)
[2017-04-13] MEDS ORDERED: LACTULOSE SYRUP 20 GM/30 ML CUP PO PRN (17:15)
[2017-04-13] MEDS ORDERED: BISACODYL 10 MG SUPP RECTAL PRN (17:15)
--- NOTE | 2017-04-13 17:37 | HHI.HP ---
HPI Service [facility]ists Primary Care Physician Manisha Estrada MD Admission Diagnosis abdominal pain recurrent nausea ,diarrhea direct admit from GI Chief Complaint: recurrent abdominal pain Travel History International Travel<30 Days: No Contact w/Intl Traveler <30 Da: No Traveled to Known Affected Are: No History of Present Illness 51 y/o white female with history of GERD and gastroparesis who was admitted 03-27 with abdominal bloating discomfort since beginning of March,had CT abdomen no significant findings,had no response to reglan . Did have NG tube placed which helped her symptoms and abdominal distension,a attempt to do small bowel series was tried but had residual barium. NG tube was removed,small bowel series eventually was unremarkable,patient started on Erythromycin 250mg tid before meals and po potassium also had mild UTI and treated with 5 days Cipro. As outpatient continued to have abdominal pain nausea and diarrhea and GI wanted patient readmitted for endoscopy and colonoscopy and CTA abdomen with GI consult and consider surgical evaluation. Review of Systems Gastrointestinal: COMPLAINS OF: Abdominal pain, Diarrhea, Nausea Past Family Social History Past Medical History insulin diabetes on tresiba 60units sq daily will change to formulary lantus also was on farxiga which patient primary doctor wanted to stop,hypertension on coreg 6.25 bid,GERD diabetic neuropathy Reported Medications erythromycin base 250 tid ac,pantoprazole 40,coreg 6.25 bid,faxiga 5 on hold, cymbalta 60,novolog sliding scale lyrica 75 tid Allergies: Coded Allergies: Sulfa (Sulfonamide Antibiotics) (Unverified Allergy, Severe, BREATHING DIFFICULTIES, 03/27/17) Social History NS,ND Physical Exam Vital Signs GENERAL: SKIN: Warm and dry. HEAD: Atraumatic. Normocephalic. EYES: Pupils equal and round. No scleral icterus. No injection or drainage. ENT: No nasal bleeding or discharge. Mucous membranes pink and moist. NECK: Trachea midline. No JVD. CARDIOVASCULAR: Regular rate and rhythm. RESPIRATORY: No accessory muscle use. Clear to auscultation. Breath sounds equal bilaterally. GASTROINTESTINAL: Abdomen soft, mild-tender, distended. Hepatic and splenic margins not palpable. MUSCULOSKELETAL: Extremities without clubbing, cyanosis, or edema. No obvious deformities. NEUROLOGICAL: Awake and alert. No obvious cranial nerve deficits. Motor grossly within normal limits. Five out of 5 muscle strength in the arms and legs. Normal speech. PSYCHIATRIC: Appropriate mood and affect; insight and judgment normal. Vital Signs Date Time Temp Pulse Resp B/P (MAP) Pulse Ox O2 Delivery O2 Flow Rate FiO2 04/13/17 15:55 97.2 98 18 140/84 (102) 95 Laboratory pending [place] VTE Risk Assessment Caprini VTE Risk Assessment: No/Low Risk (score <= 1) Caprini Risk Assessment Model Point Value = 1 Point Value = 2 Point Value = 3 Point Value = 5 Age 41-60 Minor surgery BMI > 25 kg/m2 Swollen legs Varicose veins or History of unexplained or recurrent spontaneous Oral contraceptives or hormone replacement Sepsis (< 1 month) Serious lung disease, including pneumonia (< 1 month) Abnormal pulmonary function Acute myocardial infarction Congestive heart failure (< 1 month) History of inflammatory bowel disease Medical patient at bed rest Age 61-74 Arthroscopic surgery Major open surgery (> 45 min) Laparoscopic surgery (> 45 min) Malignancy Confined to bed (> 72 hours) Immobilizing plaster cast Central venous access Age >= 75 History of VTE Family history of VTE Factor V Leiden Prothrombin [id number] Lupus anticoagulant Anticardiolipin antibodies Elevated serum homocysteine Heparin-induced thrombocytopenia Other congenital or acquired thrombophilia Stroke (< 1 month) Elective arthroplasty Hip, pelvis, or leg fracture Acute spinal cord injury (< 1 month) Prophylaxis Regimen Total Risk Factor Score Risk Level Prophylaxis Regimen 0-1 Low Early ambulation 2 Moderate Order ONE of the following: *Sequential Compression Device (SCD) *Heparin 5000 units SQ BID 3-4 Higher Order ONE of the following medications: *Heparin 5000 units SQ TID *Enoxaparin/Lovenox 40 mg SQ daily (WT < 150 kg, CrCl > 30 mL/min) *Enoxaparin/Lovenox 30 mg SQ daily (WT < 150 kg, CrCl > 10-29 mL/min) *Enoxaparin/Lovenox 30 mg SQ BID (WT < 150 kg, CrCl > 30 mL/min) AND/OR *Sequential Compression Device (SCD) 5 or more Highest Order ONE of the following medications: *Heparin 5000 units SQ TID (Preferred with Epidurals) *Enoxaparin/Lovenox 40 mg SQ daily (WT < 150 kg, CrCl > 30 mL/min) *Enoxaparin/Lovenox 30 mg SQ daily (WT < 150 kg, CrCl > 10-29 mL/min) *Enoxaparin/Lovenox 30 mg SQ BID (WT < 150 kg, CrCl > 30 mL/min) AND *Sequential Compression Device (SCD) Assessment and Plan Problem List: (1) Diarrhea ICD Codes: R19.7 - Diarrhea, unspecified Plan: GI has sent in orders to obtain stool studies (2) Nonspecific abdominal pain ICD Codes: R10.9 - Unspecified abdominal pain Plan: as per GI orders plan is for endoscopy and colonoscopy and CTA abdomen add pain med (3) Abdominal bloating ICD Codes: R14.0 - Abdominal distension (gaseous) Plan: as above (4) Type 2 diabetes mellitus with diabetic neuropathy ICD Codes: E11.40 - Type 2 diabetes mellitus with diabetic neuropathy, unspecified Plan: lantus added and will use novolog sliding scale (5) Hypertension ICD Codes: I10 - Hypertension Status: Acute Plan: continue coreg Assessment and Plan further plan as case develops Code Status full Discussed Condition With patient Physician Certification 2 Midnight Certification Type: Admission for Inpatient Services Order for Inpatient Services The services are ordered in accordance with Medicare regulations or non- Medicare payer requirements, as applicable. In the case of services not specified as inpatient-only, they are appropriately provided as inpatient services in accordance with the 2-midnight benchmark. Estimated LOS (days): 3 3 days is the estimated time the patient will need to remain in the hospital, assuming treatment plan goals are met and no additional complications. Post-Hospital Plan: Not yet determined Alexandru Lawson MD Apr 13, 2017 17:37
[2017-04-13 17:57] LABS: AUTOMATED NEUTROPHIL # 10.8 TH/MM3 (1.8-7.7); BASOPHIL # 0.2 TH/MM3 (0-0.2); BASOPHIL % 1.1 % (0.0-2.0); EOSINOPHIL # 0.1 TH/MM3 (0-0.4); EOSINOPHIL % 0.7 % (0.0-4.0); HEMATOCRIT 47.8 % (35.0-46.0); HEMO FLAGS DIFF FINAL; LYMPH % 27.4 % (9.0-44.0); LYMPHOCYTE # 4.4 TH/MM3 (1.0-4.8); MEAN CORPUSCULAR HEMOGLOBIN 28.2 PG (27.0-34.0); MEAN CORPUSCULAR HGB CONC 33.5 % (32.0-36.0); MONO % 4.5 % (0.0-8.0); NEUT % 66.3 % (16.0-70.0); PLATELET COUNT 421 TH/MM3 (150-450); RED BLOOD COUNT 5.69 MIL/MM3 (4.00-5.30); RED CELL DISTRIBUTION WIDTH 11.8 % (11.6-17.2); WHITE BLOOD COUNT 16.2 TH/MM3 (4.0-11.0)
[2017-04-13] MEDS ORDERED: PREGABALIN 75 MG CAP PO SCH (18:00)
[2017-04-13 18:05] LABS: POTASSIUM 4.1 MEQ/L (3.5-5.1)
[2017-04-13] MEDS: PREGABALIN 75 MG CAP PO SCH (18:07)
[2017-04-13 18:08] LABS: BICARBONATE 24.9 MEQ/L (21.0-32.0)
[2017-04-13] MEDS ORDERED: MAGNESIUM CITRATE SOLN 300 ML BTL PO ONE ×2 (18:15→20:00)
[2017-04-13] MEDS: MEDIUM DOSE INSULIN NOVOLOG SUPPLEMENTAL SCALE SQ SCH ×2 (18:17→23:57)
[2017-04-13] MEDS: 1/2 NS + KCL 20 MEQ INJ 1,000 ML IV SCH (18:58)
[2017-04-13 19:19] LABS: INDIRECT BILIRUBIN 0.8 MG/DL (0.0-0.8)
[2017-04-13 20:00] VITALS: BP 142/74; PULSE 99; RESP 18; TEMP 98.2; O2SAT 95
[2017-04-13 20:02] VITALS: PULSE 99
[2017-04-13] MEDS: PANTOPRAZOLE SODIUM 40 MG VIAL IV PUSH SCH (20:12)
[2017-04-13] MEDS: POTASSIUM CHLORIDE 20 MEQ CONTROLLED RELEASE TAB PO SCH (20:13)
[2017-04-13] MEDS: CARVEDILOL 6.25 MG TAB PO SCH (20:13)
[2017-04-13] MEDS: SODIUM CHLORIDE 0.9% FLUSH 10 ML FLUSH IV FLUSH SCH (20:13)
[2017-04-13] MEDS: DOCUSATE SODIUM 50 MG/SENNA 8.6 MG TAB PO SCH (20:13)
[2017-04-13] MEDS: HYDROmorphone HCL PF 1 MG/ML VIAL IV PUSH PRN ×2 (20:14→23:42)
[2017-04-13] MEDS ORDERED: CARVEDILOL 3.125 MG TAB PO SCH (21:00)
[2017-04-13] MEDS ORDERED: DULoxetine HCl DR 60 MG CAP PO SCH (21:00)
[2017-04-13] MEDS ORDERED: INSULIN NovoLIN REGULAR SUPPLEMENTAL SCALE SQ SCH (21:00)
[2017-04-13 21:27] LABS: C. DIFF EPI 027 PRESUMPTIVE NEGATIVE (NEGATIVE)
[2017-04-13] MEDS ORDERED: IOHEXOL 350 MG/ML 10 ML VIAL (for RAD DIAG) IVCONTRAST ONE (22:15)
[2017-04-13] MEDS: PROMETHAZINE INJ 25 MG/ML VIAL IM PRN (23:42)
[2017-04-14] VITALS (7 sets, daily range): BP systolic 116–147; BP diastolic 64–104; PULSE 80–98; RESP 16–20; TEMP 96.2–98.3; O2SAT 95–98
--- NOTE | 2017-04-14 00:31 | RADRPT ---
EXAM DATE/TIME: 04/13/2017 22:17 [place] COMPARISON: No previous studies available for comparison. INDICATIONS : Abdominal pain. IV CONTRAST: 100 cc Omnipaque 350 (iohexol) IV ORAL CONTRAST: No oral contrast ingested. RADIATION DOSE: 18.08 CTDIvol (mGy) MEDICAL HISTORY : Hypertension. Diabetes mellitus type 2. Pancreatitis.Hiatal hernia. Gastroesophageal reflux disease. Gastritis. SURGICAL HISTORY : Cholecystectomy. Tubal ligation. section. ENCOUNTER: Initial ACUITY: 2 days PAIN SCALE: 6/10 LOCATION: Bilateral upper quadrant lower quadrant TECHNIQUE: Volumetric scanning was performed using a multi-row detector CT scanner. The data was post processed with a variety of visualization algorithms including full volume maximum intensity projection, multi -planar sliding thin slab reformation, curved planar reformation, and surface rendering techniques. Using automated exposure control and adjustment of the mA and/or kV according to patient size, radiat ion dose was kept as low as reasonably achievable to obtain optimal diagnostic quality images. DICOM format image data is available electronically for review and comparison. FINDINGS: The abdominal aorta and iliacs are widely patent. Looking at the aortic visceral vessels, there is si gnificant arcuate ligament compression at the origin of the celiac. The branches are patent and unrem arkable. The SMA is widely patent. Renal arteries are widely patent, including a small accessory righ t renal artery. The OLGA LIDIA is patent. In the pelvis, hypogastrics are patent bilaterally, the common fem oral arteries are healthy appearance and the visualized proximal thigh vessels are intact. 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 No significant mesenteric stenotic diseas e. Harshil Hilton MD on April 14, 2017 at 0:26 Board Certified Radiologist. This report was verified electronically.
[2017-04-14] MEDS: HYDROmorphone HCL PF 1 MG/ML VIAL IV PUSH PRN ×5 (03:03→20:42)
[2017-04-14] MEDS: ONDANSETRON HCL 4 MG/2 ML VIAL IV PUSH PRN (03:03)
[2017-04-14] MEDS: 1/2 NS + KCL 20 MEQ INJ 1,000 ML IV SCH ×3 (03:04→14:01)
[2017-04-14] MEDS: MEDIUM DOSE INSULIN NOVOLOG SUPPLEMENTAL SCALE SQ SCH ×3 (06:00→18:45)
[2017-04-14 06:42] LABS: CHLORIDE 101 MEQ/L (98-107); POTASSIUM 4.2 MEQ/L (3.5-5.1); SODIUM (NA) 137 MEQ/L (136-145)
[2017-04-14 06:50] LABS: ANION GAP 8 MEQ/L (5-15); BICARBONATE 28.2 MEQ/L (21.0-32.0); BLOOD UREA NITROGEN 11 MG/DL (7-18)
[2017-04-14 06:52] LABS: ALT (GPT) 29 U/L (10-53); AST (GOT) 18 U/L (15-37); GLOMERULAR FILTRATION RATE 112 ML/MIN (>89)
[2017-04-14 06:55] LABS: ALKALINE PHOSPHATASE 104 U/L (45-117)
[2017-04-14] MEDS ORDERED: INSULIN DEGLUDEC 60 UNIT SQ SCH (09:00)
[2017-04-14] MEDS: SODIUM CHLORIDE 0.9% FLUSH 10 ML FLUSH IV FLUSH SCH ×2 (09:00→20:40)
[2017-04-14] MEDS: POTASSIUM CHLORIDE 20 MEQ CONTROLLED RELEASE TAB PO SCH ×2 (10:24→20:42)
[2017-04-14] MEDS: CARVEDILOL 6.25 MG TAB PO SCH ×2 (10:24→20:42)
[2017-04-14] MEDS: DOCUSATE SODIUM 50 MG/SENNA 8.6 MG TAB PO SCH ×2 (10:24→19:44)
[2017-04-14] MEDS: DULoxetine HCl DR 60 MG CAP PO SCH (10:25)
[2017-04-14] MEDS: ERYTHROMYCIN EC 250 MG TABEC PO SCH ×3 (10:25→17:00)
[2017-04-14] MEDS: PREGABALIN 75 MG CAP PO SCH ×3 (10:25→18:43)
[2017-04-14] MEDS: PANTOPRAZOLE SODIUM 40 MG VIAL IV PUSH SCH ×2 (10:30→20:40)
[2017-04-14] MEDS: INSULIN DETEMIR 100 UNITS/ML VIAL SQ SCH (10:32)
--- NOTE | 2017-04-14 10:34 | HHI.PR ---
Subjective Remarks Patient with abdominal pain and nausea and diarrhea and is being prep for colon and endoscopy still not cleared will add fleet enema ,lab work has increased wbc count jory negative for c diff. CTA no mesenteric obstruction. Objective Vitals GENERAL: SKIN: Warm and dry. HEAD: Atraumatic. Normocephalic. EYES: Pupils equal and round. No scleral icterus. No injection or drainage. ENT: No nasal bleeding or discharge. Mucous membranes pink and moist. NECK: Trachea midline. No JVD. CARDIOVASCULAR: Regular rate and rhythm. RESPIRATORY: No accessory muscle use. Clear to auscultation. Breath sounds equal bilaterally. GASTROINTESTINAL: Abdomen , moderate tender, mild distended. Hepatic and splenic margins not palpable. MUSCULOSKELETAL: Extremities without clubbing, cyanosis, or edema. No obvious deformities. NEUROLOGICAL: Awake and alert. No obvious cranial nerve deficits. Motor grossly within normal limits. Five out of 5 muscle strength in the arms and legs. Normal speech. PSYCHIATRIC: Appropriate mood and affect; insight and judgment normal. Vital Signs Date Time Temp Pulse Resp B/P (MAP) Pulse Ox O2 Delivery O2 Flow Rate FiO2 04/14/17 08:00 97.6 98 19 142/104 (117) 98 04/14/17 04:00 98.3 90 16 116/64 (81) 96 04/14/17 00:00 98.2 88 16 147/90 (109) 96 04/13/17 20:02 99 04/13/17 20:00 98.2 99 18 142/74 (96) 95 04/13/17 15:55 97.2 98 18 140/84 (102) 95 Result Diagram: 04/13/17 1737 04/14/17 0535 A/P Problem List: (1) Diarrhea ICD Codes: R19.7 - Diarrhea, unspecified Plan: stool for c diff negative (2) Nonspecific abdominal pain ICD Codes: R10.9 - Unspecified abdominal pain Plan: as per GI orders plan is for endoscopy and colonoscopy on pain med CTA no mesenteric obstruction some compression celiac artery (3) Abdominal bloating ICD Codes: R14.0 - Abdominal distension (gaseous) Plan: as above (4) Type 2 diabetes mellitus with diabetic neuropathy ICD Codes: E11.40 - Type 2 diabetes mellitus with diabetic neuropathy, unspecified Plan: lantus added and will use novolog sliding scale (5) Hypertension ICD Codes: I10 - Hypertension Status: Acute Plan: continue coreg Alexandru Lawson MD Apr 14, 2017 10:34
[2017-04-14] MEDS ORDERED: SOD PHOSPHATE/SOD BIPHOSPHATE (ADULT) ENEMA 133ML RECTAL ONE (10:45)
[2017-04-14] MEDS ORDERED: PROPOFOL 200 MG/20 ML AMP IV ONE (12:20)
--- NOTE | 2017-04-14 12:38 | GIPROC ---
[facility] [address] [place] [address], [id number] COLONOSCOPY PROCEDURE REPORT EXAM DATE: 04/14/2017 PATIENT NAME: Rocío Barker MR #: [id number] BIRTHDATE: 1965 ENDOSCOPIST: Savana Luciano MD ORDER #: [id number] MANAGER FIRE: Ibis Naqvi RN and Aki Babcock MULTIMEDIA DESIGNER STATUS: inpatient INDICATIONS: The patient is a 51 yr old female here for a colonoscopy due to abdominal pain, diarrhea PROCEDURE PERFORMED: Colonoscopy with biopsy MEDICATIONS: None and Per Anesthesia. PREP QUALITY: poor PREP TYPE:Other: ESTIMATED BLOOD LOSS: None CONSENT: The patient understands the risks and benefits of the procedure and understands that these risks include, but are not limited to: sedation, allergic reaction, infection, perforation and/or bleeding. Alternative means of evaluation and treatment include, among others: physical exam, x-rays, and/or surgical intervention. The patient elects to proceed with this endoscopic procedure. medical equipment was checked for proper function. Hand hygiene and appropriate measures for infection prevention was taken. After the risks, benefits and alternatives of the procedure were thoroughly explained, Informed consent was verified, confirmed and timeout was successfully executed by the treatment team. A digital exam revealed external hemorrhoids The endoscope was introduced through the anus and advanced to the cecum, which was identified by both the appendix and ileocecal valve. The instrument was then slowly withdrawn as the colon was fully examined. COLON FINDINGS: Poor prep-no gross lesions-biopsy ascending and descending colon. Retroflexed views revealed small internal hemorrhoids The scope was then completely withdrawn from the patient and the procedure terminated. PROCEDURE WITHDRAWAL TIME:6minutes ADVERSE EVENTS: There were no complications. IMPRESSIONS: 1. Poor prep-no gross lesions-biopsy ascending and descending colon 2. Retroflexed views revealed small internal hemorrhoids 3. Revealed external hemorrhoids RECOMMENDATIONS: 1. Await biopsy results. Biopsy results will not be ready for 7-10 days. If you don't hear from us in two weeks, call our office for results. 2. Probiotics from any [facility] or health food store 3. Yearly rectal exams 4. Clear liquid diet surgical consult RECALL: Return 1 year Colonoscopy Savana Luciano MD eSigned: Savana Luciano MD 04/14/2017 12:38 PM cc:
--- NOTE | 2017-04-14 12:46 | GIPROC ---
[address], [address] EGD PROCEDURE REPORT EXAM DATE: 04/14/2017 PATIENT NAME: Rocío Barker MR #: [id number] BIRTHDATE: 1965 ATTENDING: Savana Luciano MD ORDER #: [id number] TECH: Ibis Naqvi RN and Aki Babcock CAFETERIA CASHIER STATUS: inpatient INDICATIONS: The patient is a 51 yr old female here for an EGD due to abdominal pain, diarrhea PROCEDURE PERFORMED: EGD w/ biopsy MEDICATIONS: None and Per Anesthesia. TOPICAL ANESTHETIC: none CONSENT: The patient understands the risks and benefits of the procedure and understands that these risks include, but are not limited to: sedation, allergic reaction, infection, perforation and/or bleeding. Alternative means of evaluation and treatment include, among others: physical exam, x-rays, and/or surgical intervention. The patient elects to proceed with this endoscopic procedure. medical equipment was checked for proper function. Hand hygiene and appropriate measures for infection prevention was taken. After the risks, benefits and alternatives of the procedure were thoroughly explained, Informed consent was verified, confirmed and timeout was successfully executed by the treatment team. The patient was anesthetized with topical anesthesia and the endoscope was introduced through the mouth and advanced to the second portion of the duodenum. Retroflexed views revealed a hiatal hernia The gastroscope was then slowly withdrawn and removed. Gastritis antrum-biopsy duodenum normal-biopsy esophagitis suggesting julia esophagitis -biopsy. ADVERSE EVENTS: There were no complications. IMPRESSIONS: 1. Gastritis antrum-biopsy duodenum normal-biopsy esophagitis suggesting julia esophagitis -biopsy 2. Retroflexed views revealed a hiatal hernia RECOMMENDATIONS: 1. Anti-reflux regimen 2. Continue PPI 3. Avoid NSAIDS 4. Diflucan 100 mg iv daily PATIENT CONDITION: stable DISPOSITION: Inpatient REPEAT EXAM: Return 1 month EGD Savana Luciano MD eSigned: Savana Luciano MD 04/14/2017 12:46 PM cc:
[2017-04-14] MEDS ORDERED: LACTATED RINGER'S 1000 ML INJ 1,000 ML ONE (14:33)
--- NOTE | 2017-04-14 20:11 | MB ---
cc: CELESTE HUANG M.D. DATE OF CONSULTATION 04/13/[address] Lawson REASON FOR CONSULTATION Recurrent abdominal pain, nausea, vomiting, diarrhea. HISTORY OF PRESENT ILLNESS Ms. Barker is a very pleasant 51-year-old lady who is known to us from previous visits to the office and to the hospital, was referred to admission to the hospital for intractable nausea, vomiting, diarrhea and abdominal pain. The patient has been seen in the office 2 weeks ago for nausea and vomiting, severe abdominal pain for almost 6 weeks prior to her visit. Had a CT abdomen and pelvis at that time which did not show any bowel obstruction. The patient came back for followup in the office for abdominal pain, nausea but did not improve in spite of being placed on Reglan. She was referred to the emergency room for further evaluation and treatment. The patient was admitted on 03/27/2017. She had the repeat CT which did not show any obstruction. An NG tube was placed and she was put on bowel rest. Had a small bowel follow-through which was negative. The patient was sent home with erythromycin three times a day and antibiotics for urinary tract infection. The patient came back today in the office for followup. She continued to have severe abdominal pain, distension, nausea, vomiting and diarrhea. Upon her clinical examination she was very tender in the abdomen due to intractable abdominal pain, nausea and vomiting. She was sent back to the hospital for readmission. She was admitted and currently is awaiting surgical consultation. She also has a history of gastroparesis. I was able to retrieve her old gastric emptying. Were not very convincing for severe gastroparesis. Also of note, her glucose has been very elevated lately running around 300 and her hemoglobin A1c is around 10, most likely contributing to her symptoms. PAST MEDICAL HISTORY Diabetes, obesity, diabetic neuropathy, questionable gastroparesis, history of adhesions. MEDICATIONS 1. Erythromycin. 2. Cymbalta. 3. Farxiga. ALLERGIES SULFA. REVIEW OF SYSTEMS CONSTITUTIONAL: She denies any fever or chills. She does have increased weakness. ENT: No alteration in baseline hearing or visual acuity. PULMONARY: Denies any chest pain, shortness of breath. GASTROINTESTINAL: As above. GENITOURINARY: Denies dysuria, hematuria. HEMATOLOGIC: Denies a history of anemia or bleeding disorder. SKIN: No alteration in baseline skin lesion. NEUROLOGICAL: No history of TIA or CVA kind of symptoms. PHYSICAL EXAMINATION GENERAL: On clinical exam she is sitting comfortably in bed at this time in no acute distress. VITAL SIGNS: Her temperature is 97.7, pulse 98, respirations 18, blood pressure 148/84. HEENT: PERRLA. NECK: No JVD. No lymphadenopathy. CHEST: Clear to auscultation and palpation. CARDIOVASCULAR: S1-S2. No murmur. ABDOMEN: Soft but distended, tender in the left upper quadrant and epigastrium. Bowel sounds are present. CERTIFIED PERSONAL FINANCE COUNSELOR: Awake, alert, oriented x3. No focal signs identified. LABORATORY DATA Her hemoglobin is 16, white count 16.2, platelets 421. Her chemistry is essentially normal except glucose 273, lipase 394. IMPRESSION Ms. Barker is a very pleasant 51-year-old lady admitted with intractable abdominal pain, nausea and vomiting, diarrhea, unclear etiology, uncontrolled diabetes, possible triggering her symptoms. Questionable history of gastroparesis. Old gastric emptying study, not convincing. History of multiple abdominal surgeries with adheion, possible recurrent adhesions, that may explain her symptoms. RECOMMENDATIONS Clear liquid diet tonight. EGD colonoscopy tomorrow morning. CTA to rule out mesenteric ischemia. Consult surgery for possible laparoscopy if the above is negative. Stool studies. Supportive care. I would like to thank Dr. Lawson for referring her to our office for consultation. MD KARRIE MartinezB/EO /6:15 PM /7:51 PM
[2017-04-14] MEDS: PROMETHAZINE INJ 25 MG/ML VIAL IM PRN (20:41)
[2017-04-15] VITALS (7 sets, daily range): BP systolic 100–133; BP diastolic 66–81; PULSE 64–81; RESP 16–20; TEMP 95.7–96.9; O2SAT 94–98
[2017-04-15] MEDS: HYDROmorphone HCL PF 1 MG/ML VIAL IV PUSH PRN ×6 (01:19→23:06)
[2017-04-15] MEDS: PROMETHAZINE INJ 25 MG/ML VIAL IM PRN ×2 (04:48→15:33)
[2017-04-15] MEDS: 1/2 NS + KCL 20 MEQ INJ 1,000 ML IV SCH ×3 (04:48→15:23)
[2017-04-15 06:14] LABS: AUTOMATED NEUTROPHIL # 6.8 TH/MM3 (1.8-7.7); BASOPHIL # 0.1 TH/MM3 (0-0.2); BASOPHIL % 1.1 % (0.0-2.0); EOSINOPHIL # 0.3 TH/MM3 (0-0.4); EOSINOPHIL % 2.5 % (0.0-4.0); HEMATOCRIT 40.5 % (35.0-46.0); HEMO FLAGS DIFF FINAL; LYMPH % 30.1 % (9.0-44.0); LYMPHOCYTE # 3.4 TH/MM3 (1.0-4.8); MEAN CELL VOLUME 86.5 FL (80.0-100.0); MEAN CORPUSCULAR HEMOGLOBIN 28.3 PG (27.0-34.0); MEAN CORPUSCULAR HGB CONC 32.7 % (32.0-36.0); MONO % 5.9 % (0.0-8.0); NEUT % 60.4 % (16.0-70.0); PLATELET COUNT 343 TH/MM3 (150-450); RED BLOOD COUNT 4.68 MIL/MM3 (4.00-5.30); RED CELL DISTRIBUTION WIDTH 12.1 % (11.6-17.2); WHITE BLOOD COUNT 11.3 TH/MM3 (4.0-11.0)
[2017-04-15 06:22] LABS: CHLORIDE 102 MEQ/L (98-107); POTASSIUM 4.2 MEQ/L (3.5-5.1); SODIUM (NA) 136 MEQ/L (136-145)
[2017-04-15 06:26] LABS: ANION GAP 7 MEQ/L (5-15); BICARBONATE 26.9 MEQ/L (21.0-32.0); BLOOD UREA NITROGEN 6 MG/DL (7-18)
[2017-04-15 06:29] LABS: ALT (GPT) 26 U/L (10-53); AST (GOT) 17 U/L (15-37); GLOMERULAR FILTRATION RATE 151 ML/MIN (>89)
[2017-04-15 06:31] LABS: TOTAL BILIRUBIN ADULT 1.1 MG/DL (0.2-1.0)
[2017-04-15 06:32] LABS: ALKALINE PHOSPHATASE 90 U/L (45-117)
[2017-04-15] MEDS: MEDIUM DOSE INSULIN NOVOLOG SUPPLEMENTAL SCALE SQ SCH ×5 (06:41→23:11)
[2017-04-15] MEDS: INSULIN DETEMIR 100 UNITS/ML VIAL SQ SCH (08:39)
[2017-04-15] MEDS: PANTOPRAZOLE SODIUM 40 MG VIAL IV PUSH SCH ×2 (08:41→22:09)
[2017-04-15] MEDS: CARVEDILOL 6.25 MG TAB PO SCH ×2 (08:43→22:12)
[2017-04-15] MEDS: POTASSIUM CHLORIDE 20 MEQ CONTROLLED RELEASE TAB PO SCH ×2 (08:43→22:12)
[2017-04-15] MEDS: DOCUSATE SODIUM 50 MG/SENNA 8.6 MG TAB PO SCH ×2 (08:43→22:12)
[2017-04-15] MEDS: DULoxetine HCl DR 60 MG CAP PO SCH (08:43)
[2017-04-15] MEDS: PREGABALIN 75 MG CAP PO SCH ×3 (08:43→18:31)
[2017-04-15] MEDS: SODIUM CHLORIDE 0.9% FLUSH 10 ML FLUSH IV FLUSH SCH ×2 (08:45→21:00)
--- NOTE | 2017-04-15 08:45 | PD.CONS ---
HPI Service General surgery Consult Requested By Dr. Luciano Reason for Consult Abdominal pain Primary Care Physician Manisha Estrada MD History of Present Illness 51 yo F with upper abd pain, primarily LUQ, constant for 6 weeks, associated with nausea worse after eating, occasional vomiting, loose stools, and 12 lb weight loss. ? gastroparesis, reglan and EES did not help. EGD/colonoscopy with no major findings yesterday. 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 PSH includes lap italia, pelvic JANICE x 2, C section x 2. On further discussion with the patient and her she actually has had some similar chronic issues for years which wax and wane in intensity. Review of Systems Constitutional: COMPLAINS OF: Weight loss, DENIES: Fever Eyes: DENIES: Eye inflammation, Eye pain Respiratory: DENIES: Cough, Wheezing Cardiovascular: DENIES: Chest pain, Palpitations Gastrointestinal: COMPLAINS OF: Abdominal pain, Nausea Musculoskeletal: DENIES: Muscle aches, Stiffness Integumentary: DENIES: Pruritus, Rash Neurologic: DENIES: Paresthesias, Seizures Past Family Social History Past Medical History Diabetes mellitus Hypertension GERD Past Surgical History Laparoscopic cholecystectomy Pelvic lysis of adhesions 2 2 Reported Medications Reported Meds & Active Scripts Active Potassium Chloride Microencaps 20 Meq Tab 20 Meq PO Q12HR Erythromycin Base 250 Mg Tab 250 Mg PO TIDAC 90 Days Pantoprazole (Pantoprazole Sodium) 40 Mg Tab 40 Mg PO DAILY Tresiba Flextouch Pen Inj (Insulin Degludec Inj) 300 unit/3 ML Pen 60 Units SQ DAILY 30 Days Reported Farxiga (Dapagliflozin) 5 Mg Tab 5 Mg PO DAILY Novolog Inj (Insulin Aspart) 1,000 Unit/10 Ml Vial 0 SQ DIRECTED Sliding Scale as directed. Lyrica (Pregabalin) 75 Mg Cap 75 Mg PO TID Carvedilol 6.25 Mg Tab 6.25 Mg PO BID Cymbalta DR (Duloxetine HCl) 60 Mg Capdr 60 Mg PO DAILY Allergies: Coded Allergies: Sulfa (Sulfonamide Antibiotics) (Unverified Allergy, Severe, BREATHING DIFFICULTIES, 03/27/17) gabapentin (Verified Allergy, Severe, AMNESIA, 04/14/17) Active Ordered Medications Current Medications Medications (Trade) Dose Ordered Sig/Henrique Route Start Time Stop Time Status Last Admin (Zofran Inj) 4 mg QID PRN IV PUSH 04/13/17 18:00 04/14/17 03:03 Potassium Chloride/Sodium Chloride 1,000 ml @ 100 mls/hr Q10H IV 04/13/17 17:00 04/15/17 04:48 (Levemir Inj) 50 units DAILY SQ 04/14/17 09:00 04/14/17 10:32 (D50w (Vial) Inj) 50 ml UNSCH PRN IV PUSH 04/13/17 17:00 (Glucagon Inj) 1 mg UNSCH PRN OTHER 04/13/17 17:00 (NovoLOG SUPPLEMENTAL SCALE) 1 Q6HR SQ 04/13/17 18:00 04/15/17 06:41 (Coreg) 6.25 mg BID PO 04/13/17 21:00 04/14/17 20:42 (Cymbalta Dr) 60 mg DAILY PO 04/14/17 09:00 04/14/17 10:25 (KCl) 20 meq Q12HR PO 04/13/17 21:00 04/14/17 20:42 (Lyrica) 75 mg TID PO 04/13/17 18:00 04/14/17 18:43 (Erythromycin Ec) 250 mg TIDAC PO 04/14/17 08:00 (Phenergan Inj) 25 mg Q8HR PRN IM 04/13/17 17:15 04/15/17 04:48 (NS Flush) 2 ml UNSCH PRN IV FLUSH 04/13/17 17:15 (NS Flush) 2 ml BID IV FLUSH 04/13/17 21:00 (Dilaudid Pf Inj) 0.5 mg Q3H PRN IV PUSH 04/13/17 17:15 04/15/17 04:48 (Narcan Inj) 0.4 mg UNSCH PRN IV PUSH 04/13/17 17:15 (Mariel-Colace) 1 tab BID PO 04/13/17 21:00 04/14/17 10:24 (Milk Of Magnesia Liq) 30 ml Q12H PRN PO 04/13/17 17:15 (Senokot) 17.2 mg Q12H PRN PO 04/13/17 17:15 (Dulcolax Supp) 10 mg DAILY PRN RECTAL 04/13/17 17:15 (Lactulose Liq) 30 ml DAILY PRN PO 04/13/17 17:15 (Protonix Inj) 40 mg Q12H IV PUSH 04/13/17 20:00 04/14/17 20:40 Family History Noncontributory Social History She is present with her . No tobacco or drug use. Physical Exam Vital Signs Vital Signs Date Time Temp Pulse Resp B/P (MAP) Pulse Ox O2 Delivery O2 Flow Rate FiO2 04/15/17 08:00 95.7 75 16 115/73 (87) 96 04/15/17 04:00 96.8 77 20 117/71 (86) 94 04/15/17 00:00 95.8 78 20 133/81 (98) 98 04/14/17 20:05 81 04/14/17 20:00 96.2 80 20 128/80 (96) 95 04/14/17 16:00 98.0 88 17 128/79 (95) 95 04/14/17 13:00 81 16 117/62 (80) 94 04/14/17 12:45 97.3 84 16 123/73 (90) 98 04/14/17 12:02 98.2 86 16 139/84 (102) 96 04/14/17 12:00 97.8 95 18 130/90 (103) 96 Physical Exam GENERAL: Awake and alert. No acute distress. Cooperative. HEAD: Normocephalic. Atraumatic. EYES: Pupils equal round and reactive to light bilaterally. No scleral icterus. CHEST: Lungs clear to auscultation bilaterally with no wheezing or rhonchi. No respiratory distress. CARDIOVASCULAR: Regular rate and rhythm. ABDOMEN: Round, soft. Mild left upper abdominal tenderness to palpation. No rebound or guarding. EXTREMITIES: No cyanosis or edema. SKIN: Warm, dry, nonjaundiced. Laboratory Laboratory Tests Test 04/15/17 05:35 White Blood Count 11.3 Red Blood Count 4.68 Hemoglobin 13.2 Hematocrit 40.5 Mean Corpuscular Volume 86.5 Mean Corpuscular Hemoglobin 28.3 Mean Corpuscular Hemoglobin Concent 32.7 Red Cell Distribution Width 12.1 Platelet Count 343 Mean Platelet Volume 7.4 Neutrophils (%) (Auto) 60.4 Lymphocytes (%) (Auto) 30.1 Monocytes (%) (Auto) 5.9 Eosinophils (%) (Auto) 2.5 Basophils (%) (Auto) 1.1 Neutrophils # (Auto) 6.8 Lymphocytes # (Auto) 3.4 Monocytes # (Auto) 0.7 Eosinophils # (Auto) 0.3 Basophils # (Auto) 0.1 CBC Comment DIFF FINAL Differential Comment Blood Urea Nitrogen 6 Creatinine 0.44 Random Glucose 201 Total Protein 6.5 Albumin 2.9 Calcium Level 8.0 Alkaline Phosphatase 90 Aspartate Amino Transf (AST/SGOT) 17 Alanine Aminotransferase (ALT/SGPT) 26 Total Bilirubin 1.1 Sodium Level 136 Potassium Level 4.2 Chloride Level 102 Carbon Dioxide Level 26.9 Anion Gap 7 Estimat Glomerular Filtration Rate 151 Result Diagram: 04/15/17 0535 04/15/17 0535 Imaging Last Impressions Abdomen/Pelvis CT 04/13/17 0000 Signed Impressions: Service Date/Time: Thursday, April 13, 2017 22:17 - CONCLUSION: 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 No significant mesenteric stenotic disease. Harshil Hilton MD Assessment and Plan Assessment and Plan 51 yo F 6 weeks upper abdominal pain, nausea, vomiting, weight loss, diarrhea. 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 Will f/u. I do not plan for inpatient operative intervention at this time. Ludwig Soares MD Apr 15, 2017 08:45
[2017-04-15] MEDS: ERYTHROMYCIN EC 250 MG TABEC PO SCH ×3 (09:51→18:31)
--- NOTE | 2017-04-15 10:27 | HHI.PR ---
Subjective Remarks Patient had bad night continued abdominal pain and vomit,cmp and cbc improved , did have compression to celiac artery on CTA ,general surgery saw patient and will discuss with GI further plan also endoscopy unremarkable some gastritis and colon showed no significant abnormalities Objective Vitals GENERAL: SKIN: Warm and dry. HEAD: Atraumatic. Normocephalic. EYES: Pupils equal and round. No scleral icterus. No injection or drainage. ENT: No nasal bleeding or discharge. Mucous membranes pink and moist. NECK: Trachea midline. No JVD. CARDIOVASCULAR: Regular rate and rhythm. RESPIRATORY: No accessory muscle use. Clear to auscultation. Breath sounds equal bilaterally. GASTROINTESTINAL: Abdomen moderate-tender, nondistended. Hepatic and splenic margins not palpable. MUSCULOSKELETAL: Extremities without clubbing, cyanosis, or edema. No obvious deformities. NEUROLOGICAL: Awake and alert. No obvious cranial nerve deficits. Motor grossly within normal limits. Five out of 5 muscle strength in the arms and legs. Normal speech. PSYCHIATRIC: Appropriate mood and affect; insight and judgment normal. Vital Signs Date Time Temp Pulse Resp B/P (MAP) Pulse Ox O2 Delivery O2 Flow Rate FiO2 04/15/17 08:00 95.7 75 16 115/73 (87) 96 04/15/17 04:00 96.8 77 20 117/71 (86) 94 04/15/17 00:00 95.8 78 20 133/81 (98) 98 04/14/17 20:05 81 04/14/17 20:00 96.2 80 20 128/80 (96) 95 04/14/17 16:00 98.0 88 17 128/79 (95) 95 04/14/17 13:00 81 16 117/62 (80) 94 04/14/17 12:45 97.3 84 16 123/73 (90) 98 04/14/17 12:02 98.2 86 16 139/84 (102) 96 04/14/17 12:00 97.8 95 18 130/90 (103) 96 Result Diagram: 04/15/17 0535 04/15/17 0535 A/P Problem List: (1) Diarrhea ICD Codes: R19.7 - Diarrhea, unspecified Plan: stool for c diff negative colonoscopy no significant findings biopsies were done (2) Nonspecific abdominal pain ICD Codes: R10.9 - Unspecified abdominal pain Plan: as per GI orders plan is for endoscopy and colonoscopy on pain med CTA no mesenteric obstruction some compression celiac artery surgery did see patient they will discuss with GI may need laproscopy (3) Abdominal bloating ICD Codes: R14.0 - Abdominal distension (gaseous) Plan: as above (4) Type 2 diabetes mellitus with diabetic neuropathy ICD Codes: E11.40 - Type 2 diabetes mellitus with diabetic neuropathy, unspecified Plan: lantus added and will use novolog sliding scale (5) Hypertension ICD Codes: I10 - Hypertension Status: Acute Plan: continue coreg Alexandru Lawson MD Apr 15, 2017 10:27
[2017-04-15] MEDS: ONDANSETRON HCL 4 MG/2 ML VIAL IV PUSH PRN ×2 (12:00→20:10)
--- NOTE | 2017-04-15 16:58 | HHI.GIFU ---
Subjective Remarks Patient was seen and examined, laying in bed comfortably, she was complaining of bloating of her stomach, seems to be tolerating clear liquid Objective Vitals I&O Vital Signs Date Time Temp Pulse Resp B/P (MAP) Pulse Ox O2 Delivery O2 Flow Rate FiO2 04/15/17 16:00 96.0 64 16 100/66 (77) 98 04/15/17 12:00 96.1 72 16 114/73 (87) 98 04/15/17 08:00 77 04/15/17 08:00 95.7 75 16 115/73 (87) 96 04/15/17 04:00 96.8 77 20 117/71 (86) 94 04/15/17 00:00 95.8 78 20 133/81 (98) 98 04/14/17 20:05 81 04/14/17 20:00 96.2 80 20 128/80 (96) 95 I/O 04/14/17 04/14/17 04/14/17 04/15/17 04/15/17 04/15/17 06:59 14:59 22:59 06:59 14:59 22:59 Intake Total 985 ml 100 ml 420 ml 2005 ml 1000 ml Output Total 400 ml Balance 585 ml 100 ml 420 ml 2005 ml 1000 ml Intake Oral 0 ml 420 ml 0 ml IV Total 985 ml 2005 ml 1000 ml Other 100 ml Emesis 400 ml # Voids 2 3 3 2 # Bowel Movements 3 1 Laboratory Laboratory Tests Test 04/15/17 05:35 White Blood Count 11.3 Red Blood Count 4.68 Hemoglobin 13.2 Hematocrit 40.5 Mean Corpuscular Volume 86.5 Mean Corpuscular Hemoglobin 28.3 Mean Corpuscular Hemoglobin Concent 32.7 Red Cell Distribution Width 12.1 Platelet Count 343 Mean Platelet Volume 7.4 Neutrophils (%) (Auto) 60.4 Lymphocytes (%) (Auto) 30.1 Monocytes (%) (Auto) 5.9 Eosinophils (%) (Auto) 2.5 Basophils (%) (Auto) 1.1 Neutrophils # (Auto) 6.8 Lymphocytes # (Auto) 3.4 Monocytes # (Auto) 0.7 Eosinophils # (Auto) 0.3 Basophils # (Auto) 0.1 CBC Comment DIFF FINAL Differential Comment Blood Urea Nitrogen 6 Creatinine 0.44 Random Glucose 201 Total Protein 6.5 Albumin 2.9 Calcium Level 8.0 Alkaline Phosphatase 90 Aspartate Amino Transf (AST/SGOT) 17 Alanine Aminotransferase (ALT/SGPT) 26 Total Bilirubin 1.1 Sodium Level 136 Potassium Level 4.2 Chloride Level 102 Carbon Dioxide Level 26.9 Anion Gap 7 Estimat Glomerular Filtration Rate 151 Physical Exam HEENT: Pupils round and reactive to light; normocephalic; atraumatic; no jaundice. Throat is clear. NECK: Neck is supple, no JVD, no lymphadenopathy. CHEST: Chest is clear to auscultation and percussion. CARDIAC: Regular rate and rhythm with no murmur gallop or rubs. ABDOMEN: Soft, mild distended abdomen, mild diffuse tenderness; no hepatosplenomegaly; bowel sounds are present in all four quadrants. EXTREMITIES: No clubbing, cyanosis, or edema. SKIN: Normal; no rash; no jaundice. BOX STAPLER: No focal deficits; alert and oriented times three. Assessment and Plan Plan Patient complaining of abdominal discomfort nausea she was recently in the hospital and was discharged, came back with the same symptoms, scan showed questionable arcuate ligament syndrome, seen by surgery Also mild elevation of her lipase possible pancreatitis Recommendation Repeat lipase if normal will advance diet as tolerated Soft diet low residue Bennie Ortega MD Apr 15, 2017 16:58
[2017-04-15] MEDS: MAGNESIUM HYDROXIDE SUSP 30 ML CUP PO PRN (23:15)
[2017-04-16] VITALS (9 sets, daily range): BP systolic 94–105; BP diastolic 58–74; PULSE 67–86; RESP 16–20; TEMP 96.4–98.1; O2SAT 94–98
[2017-04-16] MEDS: 1/2 NS + KCL 20 MEQ INJ 1,000 ML IV SCH ×2 (05:29→11:09)
[2017-04-16] MEDS: MEDIUM DOSE INSULIN NOVOLOG SUPPLEMENTAL SCALE SQ SCH ×4 (05:30→22:30)
[2017-04-16 06:20] LABS: AUTOMATED NEUTROPHIL # 4.8 TH/MM3 (1.8-7.7); BASOPHIL # 0.2 TH/MM3 (0-0.2); BASOPHIL % 1.8 % (0.0-2.0); EOSINOPHIL # 0.2 TH/MM3 (0-0.4); EOSINOPHIL % 2.5 % (0.0-4.0); HEMATOCRIT 39.7 % (35.0-46.0); HEMO FLAGS DIFF FINAL; LYMPH % 37.8 % (9.0-44.0); LYMPHOCYTE # 3.5 TH/MM3 (1.0-4.8); MEAN CELL VOLUME 85.6 FL (80.0-100.0); MEAN CORPUSCULAR HGB CONC 33.9 % (32.0-36.0); MONO % 6.7 % (0.0-8.0); NEUT % 51.2 % (16.0-70.0); PLATELET COUNT 294 TH/MM3 (150-450); RED BLOOD COUNT 4.63 MIL/MM3 (4.00-5.30); RED CELL DISTRIBUTION WIDTH 11.8 % (11.6-17.2); WHITE BLOOD COUNT 9.3 TH/MM3 (4.0-11.0)
[2017-04-16 06:34] LABS: CHLORIDE 105 MEQ/L (98-107); POTASSIUM 4.3 MEQ/L (3.5-5.1); SODIUM (NA) 140 MEQ/L (136-145)
[2017-04-16 06:39] LABS: ANION GAP 5 MEQ/L (5-15); BICARBONATE 29.9 MEQ/L (21.0-32.0); BLOOD UREA NITROGEN 4 MG/DL (7-18)
[2017-04-16 06:42] LABS: ALT (GPT) 24 U/L (10-53); AST (GOT) 13 U/L (15-37); GLOMERULAR FILTRATION RATE 131 ML/MIN (>89)
[2017-04-16 06:45] LABS: ALKALINE PHOSPHATASE 87 U/L (45-117)
[2017-04-16] MEDS: SODIUM CHLORIDE 0.9% FLUSH 10 ML FLUSH IV FLUSH SCH ×2 (08:36→21:15)
[2017-04-16] MEDS: POTASSIUM CHLORIDE 20 MEQ CONTROLLED RELEASE TAB PO SCH ×2 (08:36→22:30)
[2017-04-16] MEDS: ERYTHROMYCIN EC 250 MG TABEC PO SCH ×3 (08:36→17:06)
[2017-04-16] MEDS: DULoxetine HCl DR 60 MG CAP PO SCH (08:36)
[2017-04-16] MEDS: PREGABALIN 75 MG CAP PO SCH ×3 (08:36→17:06)
[2017-04-16] MEDS: INSULIN DETEMIR 100 UNITS/ML VIAL SQ SCH (08:37)
[2017-04-16] MEDS: PANTOPRAZOLE SODIUM 40 MG VIAL IV PUSH SCH ×2 (08:37→20:56)
[2017-04-16] MEDS: DOCUSATE SODIUM 50 MG/SENNA 8.6 MG TAB PO SCH (08:37)
[2017-04-16] MEDS: CARVEDILOL 6.25 MG TAB PO SCH ×2 (08:37→21:00)
[2017-04-16] MEDS: HYDROmorphone HCL PF 1 MG/ML VIAL IV PUSH PRN ×4 (08:38→21:00)
[2017-04-16] MEDS: PROMETHAZINE INJ 25 MG/ML VIAL IM PRN (11:07)
--- NOTE | 2017-04-16 11:21 | HHI.GIFU ---
GI Follow-up Note Consult Follow-up Subjective: Patient laying in bed , still in a lot of pain, nausea, diarrhea.Did not receive pain medications last night due to low BP. Discussed about inserting NGT, not interested at this time .Discussed with , will reevaluate today Objective: PHYSICAL EXAMINATION: Vitals signs stable No fever Vital Signs Date Time Temp Pulse Resp B/P (MAP) Pulse Ox O2 Delivery O2 Flow Rate FiO2 04/16/17 08:35 97.1 73 20 105/65 (78) 98 04/16/17 05:30 67 16 98/74 (82) 96 HEENT: Pupils round and reactive to light; normocephalic; atraumatic; no jaundice. Throat is clear. NECK: Neck is supple, no JVD, no lymphadenopathy. CHEST: Chest is clear to auscultation and percussion. CARDIAC: Regular rate and rhythm with no murmur gallop or rubs. ABDOMEN: Soft,distended, epigastric tenderness ; no hepatosplenomegaly; bowel sounds are present in all four quadrants. EXTREMITIES: No clubbing, cyanosis, or edema. SKIN: Normal; no rash; no jaundice. PRODUCT MANAGER FINANCIAL SERVICES: No focal deficits; alert and oriented times three. Available Data (labs, X- Rays, Procedues) : Laboratory Tests Test 04/15/17 05:35 04/16/17 05:45 White Blood Count 11.3 TH/MM3 9.3 TH/MM3 Red Blood Count 4.68 MIL/MM3 4.63 MIL/MM3 Hemoglobin 13.2 GM/DL 13.4 GM/DL Hematocrit 40.5 % 39.7 % Mean Corpuscular Volume 86.5 FL 85.6 FL Mean Corpuscular Hemoglobin 28.3 PG 29.0 PG Mean Corpuscular Hemoglobin Concent 32.7 % 33.9 % Red Cell Distribution Width 12.1 % 11.8 % Platelet Count 343 TH/MM3 294 TH/MM3 Mean Platelet Volume 7.4 FL 7.4 FL Neutrophils (%) (Auto) 60.4 % 51.2 % Lymphocytes (%) (Auto) 30.1 % 37.8 % Monocytes (%) (Auto) 5.9 % 6.7 % Eosinophils (%) (Auto) 2.5 % 2.5 % Basophils (%) (Auto) 1.1 % 1.8 % Neutrophils # (Auto) 6.8 TH/MM3 4.8 TH/MM3 Lymphocytes # (Auto) 3.4 TH/MM3 3.5 TH/MM3 Monocytes # (Auto) 0.7 TH/MM3 0.6 TH/MM3 Eosinophils # (Auto) 0.3 TH/MM3 0.2 TH/MM3 Basophils # (Auto) 0.1 TH/MM3 0.2 TH/MM3 CBC Comment DIFF FINAL DIFF FINAL Differential Comment Blood Urea Nitrogen 6 MG/DL 4 MG/DL Creatinine 0.44 MG/DL 0.50 MG/DL Random Glucose 201 MG/DL 103 MG/DL Total Protein 6.5 GM/DL 6.2 GM/DL Albumin 2.9 GM/DL 2.7 GM/DL Calcium Level 8.0 MG/DL 8.4 MG/DL Alkaline Phosphatase 90 U/L 87 U/L Aspartate Amino Transf (AST/SGOT) 17 U/L 13 U/L Alanine Aminotransferase (ALT/SGPT) 26 U/L 24 U/L Total Bilirubin 1.1 MG/DL 1.0 MG/DL Sodium Level 136 MEQ/L 140 MEQ/L Potassium Level 4.2 MEQ/L 4.3 MEQ/L Chloride Level 102 MEQ/L 105 MEQ/L Carbon Dioxide Level 26.9 MEQ/L 29.9 MEQ/L Anion Gap 7 MEQ/L 5 MEQ/L Estimat Glomerular Filtration Rate 151 ML/MIN 131 ML/MIN Lipase 138 U/L ASSESSMENT/PLAN: recurrent abdominal pain-possible secondary arcuate ligament syndrome extensive work-up negative so far history of gastroparesis old reports not very impressive ileus Recommendations clear liquid diet ppi antiemetics ngt if continues to have n,v, abdominal pain await input from surgery porphyrins, gastrin, chromogranin, vip level , stool fat quantitative discussed with patient and mild pancreatitis trial of pancreatic enzymes with meals trial of Rifaximin 550 mg po bid for possible bacterial overgrowth It was a pleasure seeing Rocío Barker. Thank you for this consult. Entered by: Savana Mills MD Apr 16, 2017 11:20
[2017-04-16] MEDS: LIPASE/PROTEASE/AMYLASE (6,000/19,000/30,000) CAP PO SCH ×2 (12:28→17:06)
--- NOTE | 2017-04-16 12:48 | HHI.PR ---
Subjective Remarks Patient with increasing abdominal pain with some distension seen by GI recheck lipase and labs stable added creon and rifampin ,did discuss with surgery as will need repair arcuate ligamnet that is compressing celiac artery. Surgery will order UGI for evaluation before surgery. At this time patient to sick for discharge ,on liquids. Objective Vitals GENERAL: SKIN: Warm and dry. HEAD: Atraumatic. Normocephalic. EYES: Pupils equal and round. No scleral icterus. No injection or drainage. ENT: No nasal bleeding or discharge. Mucous membranes pink and moist. NECK: Trachea midline. No JVD. CARDIOVASCULAR: Regular rate and rhythm. RESPIRATORY: No accessory muscle use. Clear to auscultation. Breath sounds equal bilaterally. GASTROINTESTINAL: Abdomen -tender, mild distended. Hepatic and splenic margins not palpable. MUSCULOSKELETAL: Extremities without clubbing, cyanosis, or edema. No obvious deformities. NEUROLOGICAL: Awake and alert. No obvious cranial nerve deficits. Motor grossly within normal limits. Five out of 5 muscle strength in the arms and legs. Normal speech. PSYCHIATRIC: Appropriate mood and affect; insight and judgment normal. Vital Signs Date Time Temp Pulse Resp B/P (MAP) Pulse Ox O2 Delivery O2 Flow Rate FiO2 04/16/17 08:35 97.1 73 20 105/65 (78) 98 04/16/17 05:30 67 16 98/74 (82) 96 04/16/17 01:45 97/69 (78) 04/16/17 00:00 96.5 71 18 94/63 (73) 94 04/15/17 21:00 79 04/15/17 20:00 96.9 81 18 109/71 (84) 95 04/15/17 16:00 96.0 64 16 100/66 (77) 98 04/16/17 04/16/17 04/17/17 15:00 23:00 07:00 Intake Total 568 ml Balance 568 ml IV Total 568 ml Result Diagram: 04/16/17 0545 04/16/17 0545 A/P Problem List: (1) Diarrhea ICD Codes: R19.7 - Diarrhea, unspecified Plan: stool for c diff negative colonoscopy no significant findings biopsies were done further stool studies ordered (2) Nonspecific abdominal pain ICD Codes: R10.9 - Unspecified abdominal pain Plan: as per GI orders plan is for endoscopy and colonoscopy on pain med CTA no mesenteric obstruction some compression celiac artery surgery ,arcuate ligament moderate compression celiac artery and discussed with surgery will require surgery patient to have UGI (3) Abdominal bloating ICD Codes: R14.0 - Abdominal distension (gaseous) Plan: as above (4) Type 2 diabetes mellitus with diabetic neuropathy ICD Codes: E11.40 - Type 2 diabetes mellitus with diabetic neuropathy, unspecified Plan: lantus added and will use novolog sliding scale (5) Hypertension ICD Codes: I10 - Hypertension Status: Acute Plan: patient blood pressure has been running low will hold BP medications Assessment and Plan patient on liquids unable to tolerate any solid food ,GI suggested placing NG tube patient declines Alexandru Lawson MD Apr 16, 2017 12:48
--- NOTE | 2017-04-16 18:56 | HHI.PR ---
Subjective Subjective Notes She tolerating liquids for dinner. Having loose stools after every meal. She is on EES and pericolace. Still with nausea. Phenergan is helping. Objective Vitals/I&O Vital Signs Date Time Temp Pulse Resp B/P (MAP) Pulse Ox O2 Delivery O2 Flow Rate FiO2 04/16/17 16:00 96.4 70 18 101/70 (80) 97 Labs Laboratory Tests Test 04/16/17 05:45 04/16/17 15:55 White Blood Count 9.3 Red Blood Count 4.63 Hemoglobin 13.4 Hematocrit 39.7 Mean Corpuscular Volume 85.6 Mean Corpuscular Hemoglobin 29.0 Mean Corpuscular Hemoglobin Concent 33.9 Red Cell Distribution Width 11.8 Platelet Count 294 Mean Platelet Volume 7.4 Neutrophils (%) (Auto) 51.2 Lymphocytes (%) (Auto) 37.8 Monocytes (%) (Auto) 6.7 Eosinophils (%) (Auto) 2.5 Basophils (%) (Auto) 1.8 Neutrophils # (Auto) 4.8 Lymphocytes # (Auto) 3.5 Monocytes # (Auto) 0.6 Eosinophils # (Auto) 0.2 Basophils # (Auto) 0.2 CBC Comment DIFF FINAL Differential Comment Blood Urea Nitrogen 4 Creatinine 0.50 Random Glucose 103 Total Protein 6.2 Albumin 2.7 Calcium Level 8.4 Alkaline Phosphatase 87 Aspartate Amino Transf (AST/SGOT) 13 Alanine Aminotransferase (ALT/SGPT) 24 Total Bilirubin 1.0 Sodium Level 140 Potassium Level 4.3 Chloride Level 105 Carbon Dioxide Level 29.9 Anion Gap 5 Estimat Glomerular Filtration Rate 131 Lipase 138 Date/Time Source Procedure Growth Status 04/16/17 15:55 Stool Stool Cryptosporidium Exam Pending Received 04/16/17 15:55 Stool Stool Giardia Antigen (SAJI) Pending Received Narrative Exam NAD Comfortable in bed A/P Assessment and Plan 51 yo F chronic upper abdominal pain worse x 6 weeks assoc with nausea and weight loss. Diarrhea- stop EES and pericolace. Nausea- Schedule phenergan (changed to po in case she can go home). Add scopolamine patch. Zofran PRN. She is scheduled for robot assisted division of median arcuate ligament Thursday next week at [facility] with Dr. Kathleen and I. I discussed the case in detail with the patient and her . I told them that she has many supporting symptoms and radiologic evidence, but that there is a chance it will not help her. They have read of the symptoms online and feel it fits quite well with what has been going on with her. Apparently her symptoms have actually been ongoing for years. They desire to proceed with surgery. I would recommend discharge if she can tolerate enough liquids to stay hydrated. If she is discharged, encourage glucerna at least three times daily. Ludwig Soares MD Apr 16, 2017 18:56
[2017-04-16] MEDS: PROMETHAZINE HCL 25 MG TAB PO SCH (20:56)
[2017-04-16] MEDS: SCOPOLAMINE 1.5 MG PATCH T-DERMAL SCH (21:13)
[2017-04-16] MEDS: RIFAXIMIN 550 MG TAB PO SCH (22:29)
[2017-04-17] VITALS (8 sets, daily range): BP systolic 102–113; BP diastolic 55–72; PULSE 70–79; RESP 16–20; TEMP 96.8–98.4; O2SAT 94–98
[2017-04-17] MEDS: PROMETHAZINE HCL 25 MG TAB PO SCH ×4 (00:51→17:11)
[2017-04-17] MEDS: HYDROmorphone HCL PF 1 MG/ML VIAL IV PUSH PRN ×5 (00:51→21:09)
[2017-04-17] MEDS: 1/2 NS + KCL 20 MEQ INJ 1,000 ML IV SCH ×3 (00:52→12:36)
[2017-04-17] MEDS: MEDIUM DOSE INSULIN NOVOLOG SUPPLEMENTAL SCALE SQ SCH ×3 (06:00→17:33)
[2017-04-17 06:40] LABS: AUTOMATED NEUTROPHIL # 8.6 TH/MM3 (1.8-7.7); BASOPHIL # 0.1 TH/MM3 (0-0.2); EOSINOPHIL # 0.3 TH/MM3 (0-0.4); HEMATOCRIT 36.8 % (35.0-46.0); HEMO FLAGS DIFF FINAL; LYMPH % 26.5 % (9.0-44.0); LYMPHOCYTE # 3.6 TH/MM3 (1.0-4.8); MEAN CELL VOLUME 84.9 FL (80.0-100.0); MEAN CORPUSCULAR HEMOGLOBIN 28.2 PG (27.0-34.0); MEAN CORPUSCULAR HGB CONC 33.2 % (32.0-36.0); MONO % 5.6 % (0.0-8.0); NEUT % 64.9 % (16.0-70.0); PLATELET COUNT 285 TH/MM3 (150-450); RED BLOOD COUNT 4.33 MIL/MM3 (4.00-5.30); RED CELL DISTRIBUTION WIDTH 12.4 % (11.6-17.2); WHITE BLOOD COUNT 13.4 TH/MM3 (4.0-11.0)
[2017-04-17 06:42] LABS: CHLORIDE 106 MEQ/L (98-107); SODIUM (NA) 139 MEQ/L (136-145)
[2017-04-17 06:47] LABS: ANION GAP 7 MEQ/L (5-15); BICARBONATE 26.2 MEQ/L (21.0-32.0); BLOOD UREA NITROGEN 3 MG/DL (7-18)
[2017-04-17 06:50] LABS: ALT (GPT) 20 U/L (10-53); AST (GOT) 14 U/L (15-37); GLOMERULAR FILTRATION RATE 147 ML/MIN (>89)
[2017-04-17 06:52] LABS: ALKALINE PHOSPHATASE 79 U/L (45-117); TOTAL BILIRUBIN ADULT 1.1 MG/DL (0.2-1.0)
[2017-04-17] MEDS: PREGABALIN 75 MG CAP PO SCH ×3 (08:40→17:11)
[2017-04-17] MEDS: LIPASE/PROTEASE/AMYLASE (6,000/19,000/30,000) CAP PO SCH ×3 (08:40→17:11)
[2017-04-17] MEDS: DULoxetine HCl DR 60 MG CAP PO SCH (08:40)
[2017-04-17] MEDS: POTASSIUM CHLORIDE 20 MEQ CONTROLLED RELEASE TAB PO SCH ×2 (08:40→21:08)
[2017-04-17] MEDS: RIFAXIMIN 550 MG TAB PO SCH ×2 (08:40→21:08)
[2017-04-17] MEDS: PANTOPRAZOLE SODIUM 40 MG VIAL IV PUSH SCH ×2 (08:40→21:07)
[2017-04-17] MEDS: CARVEDILOL 6.25 MG TAB PO SCH ×2 (08:40→21:07)
[2017-04-17] MEDS: INSULIN DETEMIR 100 UNITS/ML VIAL SQ SCH (08:40)
[2017-04-17] MEDS: SODIUM CHLORIDE 0.9% FLUSH 10 ML FLUSH IV FLUSH SCH ×2 (08:41→21:07)
--- NOTE | 2017-04-17 11:04 | HHI.PR ---
Subjective Remarks Patient continues to have abdominal pain unable to tolerate liquids as soon as she takes any liquid it goes right thru her to diarrhea stool studies to date are normal Cultures of endoscopy still not back ,endoscopy did suggest possible julia and will empirically start diflucan 100 mg IV daily and add probiotics lactinex. 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 Surgery added scopolamine patch yesterday. Objective Vitals GENERAL: SKIN: Warm and dry. HEAD: Atraumatic. Normocephalic. EYES: Pupils equal and round. No scleral icterus. No injection or drainage. ENT: No nasal bleeding or discharge. Mucous membranes pink and moist. NECK: Trachea midline. No JVD. CARDIOVASCULAR: Regular rate and rhythm. RESPIRATORY: No accessory muscle use. Clear to auscultation. Breath sounds equal bilaterally. GASTROINTESTINAL: Abdomen-tender, mild distended. Hepatic and splenic margins not palpable. MUSCULOSKELETAL: Extremities without clubbing, cyanosis, or edema. No obvious deformities. NEUROLOGICAL: Awake and alert. No obvious cranial nerve deficits. Motor grossly within normal limits. Five out of 5 muscle strength in the arms and legs. Normal speech. PSYCHIATRIC: Appropriate mood and affect; insight and judgment normal. Vital Signs Date Time Temp Pulse Resp B/P (MAP) Pulse Ox O2 Delivery O2 Flow Rate FiO2 04/17/17 08:53 97.8 76 20 110/68 (82) 96 04/17/17 04:00 97.6 72 20 109/72 (84) 98 04/17/17 00:00 97.9 71 20 104/58 (73) 97 04/16/17 22:00 72 04/16/17 20:00 98.1 77 20 104/58 (73) 97 04/16/17 16:00 96.4 70 18 101/70 (80) 97 04/16/17 12:00 97.7 75 20 104/68 (80) 95 04/17/17 04/17/17 04/18/17 14:59 22:59 06:59 Intake Total 1250 ml Balance 1250 ml IV Total 1250 ml Result Diagram: 04/17/1761904/17/17619 A/P Problem List: (1) Diarrhea ICD Codes: R19.7 - Diarrhea, unspecified Plan: stool for c diff negative colonoscopy no significant findings biopsies were done further stool studies ordered and crypto-negative probiotics added (2) Nonspecific abdominal pain ICD Codes: R10.9 - Unspecified abdominal pain Plan: as per GI orders plan is for endoscopy and colonoscopy on pain med CTA no mesenteric obstruction some compression celiac artery surgery ,arcuate ligament moderate compression celiac artery and discussed with surgery will require surgery patient to have UGI today in review of endoscopy has esophagitis and bx pending but did look like julia will start IV 100mg diflucan. (3) Abdominal bloating ICD Codes: R14.0 - Abdominal distension (gaseous) Plan: as above (4) Type 2 diabetes mellitus with diabetic neuropathy ICD Codes: E11.40 - Type 2 diabetes mellitus with diabetic neuropathy, unspecified Plan: lantus added and will use novolog sliding scale (5) Hypertension ICD Codes: I10 - Hypertension Status: Acute Plan: patient blood pressure has been running low will hold BP medications Assessment and Plan patient on liquids unable to tolerate any solid food ,GI suggested placing NG tube patient declines Alexandru Lawson MD Apr 17, 2017 11:03
[2017-04-17] MEDS: FLUCONAZOLE 100 MG PREMIX BAG 50 ML IV SCH (13:57)
--- NOTE | 2017-04-17 14:39 | RADRPT ---
EXAM DATE/TIME: 04/17/2017 12:48 [facility] COMPARISON: No previous studies available for comparison. INDICATIONS : Nausea FLUORO TIME: 1.3 minutes IMAGE COUNT: 24 CONTRAST: 1. E-Z Gas II-Effervescent granules (Antacid .014 oz) E-Z HD Barium Sulfate (98% w.w) MEDICAL HISTORY : Hypertension. Diabetes mellitus type 2. Pancreatitis.Hiatal hernia. SURGICAL HISTORY : Cholecystectomy. Tubal ligation. section. ENCOUNTER: Initial ACUITY: 1 week PAIN SCORE: 8/10 LOCATION: Bilateral Abdomen FINDINGS: Preliminary film is unremarkable. Examination of the swallowing function demonstrates no evidence of aspiration or penetration. The jeanentte dy of the esophagus is unremarkable. Mild gastroesophageal reflux is noted. No hiatal hernia is iden tified. Examination of the stomach demonstrates no evidence of intraluminal mass or extrinsic compression. T he gastric volume appears normal and there are no findings of ulceration. The mucosal pattern appear s normal. The duodenal bulb and sweep appear normal. The visualized small bowel is unremarkable. CONCLUSION: Mild gastroesophageal reflux. Otherwise unremarkable double contrast upper GI series. Jj Parks MD on April 17, 2017 at 14:37 Board Certified Radiologist. This report was verified electronically.
--- NOTE | 2017-04-17 18:20 | HHI.GIFU ---
Subjective Remarks Laying in bed complaining of pain nausea but not so much vomiting at this point and the diarrhea appears to have declined Objective Vitals I&O Vital Signs Date Time Temp Pulse Resp B/P (MAP) Pulse Ox O2 Delivery O2 Flow Rate FiO2 04/17/17 16:00 97.0 74 16 113/69 (84) 98 04/17/17 12:00 98.4 79 18 103/68 (80) 94 04/17/17 08:53 97.8 76 20 110/68 (82) 96 04/17/17 04:00 97.6 72 20 109/72 (84) 98 04/17/17 00:00 97.9 71 20 104/58 (73) 97 04/16/17 22:00 72 04/16/17 20:00 98.1 77 20 104/58 (73) 97 I/O 04/16/17 04/16/17 04/16/17 04/17/17 04/17/17 04/17/17 07:00 15:00 23:00 07:00 15:00 23:00 Intake Total 1540 ml 568 ml 2335 ml 1810 ml 1250 ml Output Total 360 ml Balance 1540 ml 568 ml 2335 ml 1450 ml 1250 ml Intake Oral 240 ml 1600 ml 360 ml IV Total 1300 ml 568 ml 735 ml 1450 ml 1250 ml Output Urine Total 360 ml # Voids 3 # Bowel Movements 3 Laboratory Laboratory Tests Test 04/17/17 06:20 04/17/17 10:38 White Blood Count 13.4 Red Blood Count 4.33 Hemoglobin 12.2 Hematocrit 36.8 Mean Corpuscular Volume 84.9 Mean Corpuscular Hemoglobin 28.2 Mean Corpuscular Hemoglobin Concent 33.2 Red Cell Distribution Width 12.4 Platelet Count 285 Mean Platelet Volume 7.4 Neutrophils (%) (Auto) 64.9 Lymphocytes (%) (Auto) 26.5 Monocytes (%) (Auto) 5.6 Eosinophils (%) (Auto) 2.0 Basophils (%) (Auto) 1.0 Neutrophils # (Auto) 8.6 Lymphocytes # (Auto) 3.6 Monocytes # (Auto) 0.8 Eosinophils # (Auto) 0.3 Basophils # (Auto) 0.1 CBC Comment DIFF FINAL Differential Comment Blood Urea Nitrogen 3 Creatinine 0.45 Random Glucose 64 Total Protein 5.8 Albumin 2.5 Calcium Level 8.1 Alkaline Phosphatase 79 Aspartate Amino Transf (AST/SGOT) 14 Alanine Aminotransferase (ALT/SGPT) 20 Total Bilirubin 1.1 Sodium Level 139 Potassium Level 4.0 Chloride Level 106 Carbon Dioxide Level 26.2 Anion Gap 7 Estimat Glomerular Filtration Rate 147 Date/Time Source Procedure Growth Status 04/16/17 15:55 Stool Stool Cryptosporidium Exam - Final NEGATIVE - NO CRYPTOSPORIDIUM ANTIGEN... Complete 04/16/17 15:55 Stool Stool Giardia Antigen (SAJI) - Final NEGATIVE - NO GIARDIA ANTIGEN DETECTE... Complete Imaging Last Impressions Upper GI Series 04/17/17 0000 Signed Impressions: Service Date/Time: Monday, April 17, 2017 12:48 - CONCLUSION: Mild gastroesophageal reflux. Otherwise unremarkable double contrast upper GI series. 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 No significant mesenteric stenotic disease. Harshil Hilton MD Physical Exam HEENT: normocephalic; atraumatic; no jaundice. Throat is clear. NECK: Neck is supple CHEST: Chest is clear to auscultation and percussion. CARDIAC: Regular rate and rhythm with no murmur gallop or rubs. ABDOMEN: Soft, mild distended abdomen, mild diffuse tenderness; no hepatosplenomegaly; bowel sounds are present in all four quadrants. EXTREMITIES: No clubbing, cyanosis, or edema. SKIN: Normal; no rash; no jaundice. ACCOUNTS RECEIVABLE PROCESSOR: No focal deficits; alert and oriented times three. Assessment and Plan Plan Patient complaining of abdominal discomfort nausea she was recently in the hospital and was discharged, came back with the same symptoms, scan showed questionable arcuate ligament syndrome, seen by surgery Also mild elevation of her lipase resolved Ileus Recommendation Repeat lipase is normal I doubt that there was any pancreatitis Patient seems to be unable to advance her diet and she may end up having to stay until her surgery Continue with current supportive care Monitor labs Salas Krishnamurthy MD Apr 17, 2017 18:20
[2017-04-17] MEDS: LACTOBACILLUS ACIDOPHILUS TAB PO SCH (21:08)
[2017-04-18] VITALS (7 sets, daily range): BP systolic 88–117; BP diastolic 56–75; PULSE 63–74; RESP 16–20; TEMP 95.9–98.1; O2SAT 92–98
[2017-04-18] MEDS: PROMETHAZINE HCL 25 MG TAB PO SCH ×5 (01:07→23:59)
[2017-04-18] MEDS: HYDROmorphone HCL PF 1 MG/ML VIAL IV PUSH PRN ×4 (01:09→12:10)
[2017-04-18] MEDS: MEDIUM DOSE INSULIN NOVOLOG SUPPLEMENTAL SCALE SQ SCH ×5 (05:44→23:40)
[2017-04-18] MEDS: 1/2 NS + KCL 20 MEQ INJ 1,000 ML IV SCH ×2 (06:22→14:16)
[2017-04-18] MEDS: DULoxetine HCl DR 60 MG CAP PO SCH (08:38)
[2017-04-18] MEDS: PREGABALIN 75 MG CAP PO SCH ×3 (08:38→17:25)
[2017-04-18] MEDS: LACTOBACILLUS ACIDOPHILUS TAB PO SCH ×2 (08:38→20:58)
[2017-04-18] MEDS: PANTOPRAZOLE SODIUM 40 MG VIAL IV PUSH SCH ×2 (08:38→20:57)
[2017-04-18] MEDS: CARVEDILOL 6.25 MG TAB PO SCH (08:38)
[2017-04-18] MEDS: POTASSIUM CHLORIDE 20 MEQ CONTROLLED RELEASE TAB PO SCH (08:38)
[2017-04-18] MEDS: RIFAXIMIN 550 MG TAB PO SCH ×2 (08:39→20:57)
[2017-04-18] MEDS: INSULIN DETEMIR 100 UNITS/ML VIAL SQ SCH (09:00)
[2017-04-18] MEDS: SODIUM CHLORIDE 0.9% FLUSH 10 ML FLUSH IV FLUSH SCH ×2 (09:00→20:58)
[2017-04-18] MEDS: LIPASE/PROTEASE/AMYLASE (6,000/19,000/30,000) CAP PO SCH ×3 (09:30→17:25)
[2017-04-18 12:09] LABS: FECAL FAT % FAT 12 % fat (< 20)
--- NOTE | 2017-04-18 14:13 | HHI.PR ---
Subjective Remarks Still with abdominal pain requiring dilaudid on a regular basis. Taking clears but it "does right through her". Voiding well. Objective Vitals Vital Signs Date Time Temp Pulse Resp B/P (MAP) Pulse Ox O2 Delivery O2 Flow Rate FiO2 04/18/17 11:59 96.7 67 16 105/62 (76) 97 04/18/17 08:03 96.5 68 20 117/75 (89) 98 04/18/17 08:00 74 04/18/17 05:00 98.1 68 18 94/57 (69) 98 04/18/17 00:32 97.2 64 20 103/56 (72) 92 04/17/17 22:24 96.8 70 16 102/55 (71) 95 04/17/17 20:00 75 04/17/17 16:00 97.0 74 16 113/69 (84) 98 04/18/17 04/18/17 04/19/17 15:00 23:00 07:00 Output Total 2700 ml Balance -2700 ml Output Urine Total 2700 ml # Voids 3 # Bowel Movements 0 Result Diagram: 04/17/17 0620 04/17/17 0620 Imaging Last Impressions Upper GI Series 04/17/17 0000 Signed Impressions: Service Date/Time: Monday, April 17, 2017 12:48 - CONCLUSION: Mild gastroesophageal reflux. Otherwise unremarkable double contrast upper GI series. 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 No significant mesenteric stenotic disease. Harshil Hilton MD Objective Remarks Lying in bed. Calm in no acute distress lungs CTA anteriorly heart rrr no murmurs abdomen globose, high pitched bowel sounds, diffusely tender ext SCD's no edema A/P Problem List: (1) Diarrhea ICD Codes: R19.7 - Diarrhea, unspecified Plan: stool for c diff negative colonoscopy no significant findings biopsies were done further stool studies ordered and crypto-negative probiotics added no apparent improvement, still unable to tolerate po (2) Nonspecific abdominal pain ICD Codes: R10.9 - Unspecified abdominal pain Plan: on pain med IV will try to change to po. CTA no mesenteric obstruction , some compression celiac artery surgery ,arcuate ligament moderate compression celiac artery ,Plan for possible surgery wed. Started on IV 100mg diflucan for possible julia. (3) Abdominal bloating ICD Codes: R14.0 - Abdominal distension (gaseous) Plan: as above (4) Hypertension ICD Codes: I10 - Hypertension Status: Chronic Plan: patient blood pressure has been running low will decrease BP medications (5) Type 2 diabetes mellitus with diabetic neuropathy ICD Codes: E11.40 - Type 2 diabetes mellitus with diabetic neuropathy, unspecified Plan: lantus added and will use novolog sliding scale, on cymbalta and lyrica Assessment and Plan patient on liquids unable to tolerate any solid food ,GI suggested placing NG tube patient declines still requiring pain control Problem Qualifiers (1) Diarrhea: Qualified Codes: R19.7 - Diarrhea, unspecified Shani Arce MD Apr 18, 2017 14:13
[2017-04-18] MEDS: FLUCONAZOLE 100 MG PREMIX BAG 50 ML IV SCH (14:15)
[2017-04-18] MEDS: ACETAMINOPHEN/HYDROcodone 325 MG/7.5 MG TAB PO SCH ×2 (14:49→20:58)
[2017-04-18] MEDS: CARVEDILOL 3.125 MG TAB PO SCH (20:57)
[2017-04-19] VITALS: BP 111/71; PULSE 66; RESP 16; TEMP 97.8; O2SAT 96
[2017-04-19] MEDS: ACETAMINOPHEN/HYDROcodone 325 MG/7.5 MG TAB PO SCH ×2 (02:33→08:54)
[2017-04-19] MEDS: 1/2 NS + KCL 20 MEQ INJ 1,000 ML IV SCH ×4 (02:33→23:17)
[2017-04-19 04:00] VITALS: BP 120/79; PULSE 62; RESP 16; TEMP 95.5; O2SAT 98
[2017-04-19] MEDS: HYDROmorphone HCL PF 1 MG/ML VIAL IV PUSH PRN ×4 (04:18→20:22)
[2017-04-19] MEDS: MEDIUM DOSE INSULIN NOVOLOG SUPPLEMENTAL SCALE SQ SCH ×3 (05:10→18:00)
[2017-04-19] MEDS: PROMETHAZINE HCL 25 MG TAB PO SCH ×3 (06:00→18:20)
[2017-04-19 07:07] LABS: AUTOMATED NEUTROPHIL # 3.4 TH/MM3 (1.8-7.7); BASOPHIL # 0.1 TH/MM3 (0-0.2); BASOPHIL % 1.3 % (0.0-2.0); EOSINOPHIL # 0.3 TH/MM3 (0-0.4); HEMATOCRIT 40.8 % (35.0-46.0); HEMO FLAGS DIFF FINAL; LYMPH % 42.3 % (9.0-44.0); LYMPHOCYTE # 3.1 TH/MM3 (1.0-4.8); MEAN CORPUSCULAR HEMOGLOBIN 28.7 PG (27.0-34.0); MEAN CORPUSCULAR HGB CONC 33.4 % (32.0-36.0); MONO % 7.1 % (0.0-8.0); NEUT % 45.3 % (16.0-70.0); PLATELET COUNT 282 TH/MM3 (150-450); RED BLOOD COUNT 4.75 MIL/MM3 (4.00-5.30); RED CELL DISTRIBUTION WIDTH 12.3 % (11.6-17.2); WHITE BLOOD COUNT 7.4 TH/MM3 (4.0-11.0)
[2017-04-19 07:09] LABS: CHLORIDE 105 MEQ/L (98-107); SODIUM (NA) 139 MEQ/L (136-145)
[2017-04-19 07:13] LABS: ANION GAP 7 MEQ/L (5-15); BICARBONATE 27.1 MEQ/L (21.0-32.0)
[2017-04-19 07:14] LABS: BLOOD UREA NITROGEN 4 MG/DL (7-18)
[2017-04-19 07:16] LABS: ALT (GPT) 20 U/L (10-53)
[2017-04-19 07:17] LABS: AST (GOT) 14 U/L (15-37); GLOMERULAR FILTRATION RATE 115 ML/MIN (>89)
[2017-04-19 07:18] LABS: TOTAL BILIRUBIN ADULT 1.7 MG/DL (0.2-1.0)
[2017-04-19 07:19] LABS: ALKALINE PHOSPHATASE 91 U/L (45-117)
[2017-04-19 08:00] VITALS: BP 119/84; PULSE 63; PULSE 79; RESP 16; TEMP 96.2; O2SAT 99
[2017-04-19] MEDS: INSULIN DETEMIR 100 UNITS/ML VIAL SQ SCH (08:41)
[2017-04-19] MEDS: PANTOPRAZOLE SODIUM 40 MG VIAL IV PUSH SCH ×2 (08:53→20:18)
[2017-04-19] MEDS: SODIUM CHLORIDE 0.9% FLUSH 10 ML FLUSH IV FLUSH SCH ×2 (08:53→20:21)
[2017-04-19] MEDS: RIFAXIMIN 550 MG TAB PO SCH ×2 (08:54→20:18)
[2017-04-19] MEDS: CARVEDILOL 3.125 MG TAB PO SCH (08:54)
[2017-04-19] MEDS: DULoxetine HCl DR 60 MG CAP PO SCH (08:54)
[2017-04-19] MEDS: PREGABALIN 75 MG CAP PO SCH ×3 (08:54→18:20)
[2017-04-19] MEDS: LACTOBACILLUS ACIDOPHILUS TAB PO SCH ×2 (08:54→20:18)
[2017-04-19] MEDS: LIPASE/PROTEASE/AMYLASE (6,000/19,000/30,000) CAP PO SCH ×3 (08:54→18:00)
[2017-04-19 12:00] VITALS: BP 113/76; PULSE 66; RESP 15; TEMP 96.9; O2SAT 96
[2017-04-19] MEDS: FLUCONAZOLE 100 MG PREMIX BAG 50 ML IV SCH (12:50)
--- NOTE | 2017-04-19 15:12 | HHI.PR ---
Subjective Remarks Less diarrhea, Still with abdominal pain . Lortab did not hold her. Has not wanted NG due to discomfort from prior insertion Objective Vitals Vital Signs Date Time Temp Pulse Resp B/P (MAP) Pulse Ox O2 Delivery O2 Flow Rate FiO2 04/19/17 12:00 96.9 66 15 113/76 (88) 96 04/19/17 08:00 96.2 63 16 119/84 (96) 99 04/19/17 04:00 95.5 62 16 120/79 (93) 98 04/19/17 00:00 97.8 66 16 111/71 (84) 96 04/18/17 20:00 63 04/18/17 20:00 97.9 66 16 106/67 (80) 97 04/18/17 18:22 20 04/18/17 16:00 95.9 67 18 88/66 (73) 92 04/18/17 15:49 20 Result Diagram: 04/19/17 0646 04/19/17 0646 Imaging Last Impressions Upper GI Series 04/17/17 0000 Signed Impressions: Service Date/Time: Monday, April 17, 2017 12:48 - CONCLUSION: Mild gastroesophageal reflux. Otherwise unremarkable double contrast upper GI series. 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 No significant mesenteric stenotic disease. Harshil Hilton MD Objective Remarks Lying in bed. Calm in no acute distress lungs CTA anteriorly heart rrr no murmurs abdomen globose, high pitched bowel sounds, diffusely tender, firm no edema A/P Problem List: (1) Diarrhea ICD Codes: R19.7 - Diarrhea, unspecified Plan: stool for c diff negative colonoscopy no significant findings biopsies were done further stool studies ordered and crypto-negative probiotics added no apparent improvement, still unable to tolerate po (2) Nonspecific abdominal pain ICD Codes: R10.9 - Unspecified abdominal pain Plan: on pain med IV, still needing regularly, no improvement with hydroconde will stop. CTA no mesenteric obstruction, some compression celiac artery surgery ,arcuate ligament moderate compression celiac artery ,Plan for possible surgery wed. Started on IV 100mg diflucan for possible julia. Discussed that her abdominal distention has more then likely been contributing to her discomfort, she is very hesitant but has agreed to Ng in attempt to improve her abdominal discomfort (3) Abdominal bloating ICD Codes: R14.0 - Abdominal distension (gaseous) Plan: as above (4) Hypertension ICD Codes: I10 - Hypertension Status: Chronic Plan: patient blood pressure has been running low will stop coreg today (5) Type 2 diabetes mellitus with diabetic neuropathy ICD Codes: E11.40 - Type 2 diabetes mellitus with diabetic neuropathy, unspecified Plan: levemir added and will use novolog sliding scale, on cymbalta and lyrica , sugars have been running lower, lantus stopped cover with sliding scale only. Assessment and Plan patient on liquids unable to tolerate any solid food ,GI suggested placing NG tube patient agrees today still requiring pain control Problem Qualifiers (1) Diarrhea: Qualified Codes: R19.7 - Diarrhea, unspecified (2) Type 2 diabetes mellitus with diabetic neuropathy: Qualified Codes: E11.40 - Type 2 diabetes mellitus with diabetic neuropathy, unspecified Shani Arce MD Apr 19, 2017 15:11
[2017-04-19] MEDS ORDERED: HYDROmorphone HCL PF 1 MG/ML VIAL IV PUSH ONE (15:15)
--- NOTE | 2017-04-19 15:40 | HHI.GIFU ---
GI Follow-up Note Consult Follow-up Subjective: Patient laying in bed comfortably, no new complaints except Objective: PHYSICAL EXAMINATION: Vitals signs stable No fever Last Impressions Upper GI Series 04/17/17 0000 Signed Impressions: Service Date/Time: Monday, April 17, 2017 12:48 - CONCLUSION: Mild gastroesophageal reflux. Otherwise unremarkable double contrast upper GI series. 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 No significant mesenteric stenotic disease. Harshil Hilton MD Laboratory Tests Test 04/19/17 06:46 White Blood Count 7.4 TH/MM3 Red Blood Count 4.75 MIL/MM3 Hemoglobin 13.6 GM/DL Hematocrit 40.8 % Mean Corpuscular Volume 86.0 FL Mean Corpuscular Hemoglobin 28.7 PG Mean Corpuscular Hemoglobin Concent 33.4 % Red Cell Distribution Width 12.3 % Platelet Count 282 TH/MM3 Mean Platelet Volume 7.6 FL Neutrophils (%) (Auto) 45.3 % Lymphocytes (%) (Auto) 42.3 % Monocytes (%) (Auto) 7.1 % Eosinophils (%) (Auto) 4.0 % Basophils (%) (Auto) 1.3 % Neutrophils # (Auto) 3.4 TH/MM3 Lymphocytes # (Auto) 3.1 TH/MM3 Monocytes # (Auto) 0.5 TH/MM3 Eosinophils # (Auto) 0.3 TH/MM3 Basophils # (Auto) 0.1 TH/MM3 CBC Comment DIFF FINAL Differential Comment Blood Urea Nitrogen 4 MG/DL Creatinine 0.56 MG/DL Random Glucose 66 MG/DL Total Protein 6.6 GM/DL Albumin 2.8 GM/DL Calcium Level 8.4 MG/DL Alkaline Phosphatase 91 U/L Aspartate Amino Transf (AST/SGOT) 14 U/L Alanine Aminotransferase (ALT/SGPT) 20 U/L Total Bilirubin 1.7 MG/DL Sodium Level 139 MEQ/L Potassium Level 4.0 MEQ/L Chloride Level 105 MEQ/L Carbon Dioxide Level 27.1 MEQ/L Anion Gap 7 MEQ/L Estimat Glomerular Filtration Rate 115 ML/MIN Allergies Coded Allergies Type Severity Reaction Last Updated Verified Sulfa (Sulfonamide Antibiotics) Allergy Severe BREATHING DIFFICULTIES 03/27/17 No gabapentin Allergy Severe AMNESIA 04/14/17 Yes Active Scripts Medications Dose Route/Sig Max Daily Dose Days Date Category Dose Instructions Potassium Chloride Microencaps 20 Meq Tab 20 Meq PO Q12HR 04/03/17 Rx Erythromycin Base 250 Mg Tab 250 Mg PO TIDAC 90 04/03/17 Rx Pantoprazole (Pantoprazole Sodium) 40 Mg Tab 40 Mg PO DAILY 04/03/17 Rx Tresiba Flextouch Pen Inj (Insulin Degludec Inj) 300 unit/3 ML Pen 60 Units SQ DAILY 30 03/27/17 Rx Farxiga (Dapagliflozin) 5 Mg Tab 5 Mg PO DAILY 03/27/17 Reported Novolog Inj (Insulin Aspart) 1,000 Unit/10 Ml Vial 0 SQ DIRECTED 03/27/17 Reported Sliding Scale as directed. Lyrica (Pregabalin) 75 Mg Cap 75 Mg PO TID 12/23/16 Reported Carvedilol 6.25 Mg Tab 6.25 Mg PO BID 07/07/[address] (Duloxetine HCl) 60 Mg Capdr 60 Mg PO DAILY 07/07/16 Reported Available Data (labs, X- Rays, Procedues) : ASSESSMENT/PLAN: Chart reviewed. Pt not seen Await labs. abrams for abdominal pain in progress. possible surgery next week. It was a pleasure seeing Rocío Barker. Thank you for this consult. Entered by: Liliya Fountain MD Apr 19, 2017 15:40
[2017-04-19 16:00] VITALS: BP 136/82; PULSE 74; RESP 16; TEMP 97.3; O2SAT 94
--- NOTE | 2017-04-19 16:53 | RADRPT ---
EXAM DATE/TIME: 04/19/2017 16:27 [facility] COMPARISON: No previous studies available for comparison. INDICATIONS : Nasogastric tube placement. MEDICAL HISTORY : Hypertension. Diabetes mellitus type 2. Pancreatitis.Hiatal hernia. SURGICAL HISTORY : Cholecystectomy. Tubal ligation. section ENCOUNTER: Initial ACUITY: 1 day PAIN SCORE: 7/10 LOCATION: abdominal pain FINDINGS: Examination of the abdomen demonstrates a normal bowel gas pattern. No free air is identified. No o rganomegaly is evident. Osseous structures are intact. Contrast material is present throughout the n ondilated colon. A nasogastric tube is in place with its tip in the stomach. There are surgical clips in the right upper quadrant compatible with prior cholecystectomy. CONCLUSION: 1. No evidence of obstruction. Nagi Baltazar MD on April 19, 2017 at 16:50 Board Certified Radiologist. This report was verified electronically.
[2017-04-19 20:00] VITALS: PULSE 70
[2017-04-19] MEDS: SCOPOLAMINE 1.5 MG PATCH T-DERMAL SCH (20:20)
[2017-04-20] VITALS (7 sets, daily range): BP systolic 119–161; BP diastolic 58–99; PULSE 66–83; RESP 15–20; TEMP 96.4–97.7; O2SAT 95–98
[2017-04-20] MEDS: PROMETHAZINE HCL 25 MG TAB PO SCH ×4 (00:25→18:24)
[2017-04-20] MEDS: MEDIUM DOSE INSULIN NOVOLOG SUPPLEMENTAL SCALE SQ SCH ×5 (05:04→23:14)
[2017-04-20] MEDS: HYDROmorphone HCL PF 1 MG/ML VIAL IV PUSH PRN ×4 (06:09→12:19)
[2017-04-20 06:52] LABS: BASOPHIL # 0.1 TH/MM3 (0-0.2); BASOPHIL % 1.4 % (0.0-2.0); EOSINOPHIL # 0.3 TH/MM3 (0-0.4); EOSINOPHIL % 3.2 % (0.0-4.0); HEMATOCRIT 40.5 % (35.0-46.0); HEMO FLAGS DIFF FINAL; LYMPH % 31.1 % (9.0-44.0); LYMPHOCYTE # 2.6 TH/MM3 (1.0-4.8); MEAN CELL VOLUME 84.9 FL (80.0-100.0); MEAN CORPUSCULAR HEMOGLOBIN 28.8 PG (27.0-34.0); MEAN CORPUSCULAR HGB CONC 33.9 % (32.0-36.0); MONO % 6.1 % (0.0-8.0); NEUT % 58.2 % (16.0-70.0); PLATELET COUNT 257 TH/MM3 (150-450); RED BLOOD COUNT 4.76 MIL/MM3 (4.00-5.30); RED CELL DISTRIBUTION WIDTH 12.4 % (11.6-17.2); WHITE BLOOD COUNT 8.5 TH/MM3 (4.0-11.0)
[2017-04-20 07:05] LABS: CHLORIDE 104 MEQ/L (98-107); POTASSIUM 3.7 MEQ/L (3.5-5.1); SODIUM (NA) 141 MEQ/L (136-145)
[2017-04-20 07:09] LABS: ANION GAP 10 MEQ/L (5-15); BICARBONATE 27.4 MEQ/L (21.0-32.0)
[2017-04-20 07:11] LABS: BLOOD UREA NITROGEN 3 MG/DL (7-18)
[2017-04-20 07:12] LABS: ALT (GPT) 19 U/L (10-53); AST (GOT) 15 U/L (15-37); GLOMERULAR FILTRATION RATE 122 ML/MIN (>89)
[2017-04-20 07:13] LABS: TOTAL BILIRUBIN ADULT 1.6 MG/DL (0.2-1.0)
[2017-04-20 07:15] LABS: ALKALINE PHOSPHATASE 86 U/L (45-117)
[2017-04-20] MEDS: PANTOPRAZOLE SODIUM 40 MG VIAL IV PUSH SCH ×2 (10:08→20:11)
[2017-04-20] MEDS: PREGABALIN 75 MG CAP PO SCH ×3 (10:08→18:24)
[2017-04-20] MEDS: SODIUM CHLORIDE 0.9% FLUSH 10 ML FLUSH IV FLUSH SCH ×2 (10:08→20:17)
[2017-04-20] MEDS: LIPASE/PROTEASE/AMYLASE (6,000/19,000/30,000) CAP PO SCH ×3 (10:08→17:44)
[2017-04-20] MEDS: DULoxetine HCl DR 60 MG CAP PO SCH (10:09)
[2017-04-20] MEDS: RIFAXIMIN 550 MG TAB PO SCH ×2 (10:09→20:16)
[2017-04-20] MEDS: LACTOBACILLUS ACIDOPHILUS TAB PO SCH ×2 (10:09→20:16)
--- NOTE | 2017-04-20 11:56 | HHI.PR ---
Subjective Remarks Tolerating NG, states abdominal feels a little less distended, diarrhea has slowed down, Still needing medication for abdominal pain. Objective Vitals Vital Signs Date Time Temp Pulse Resp B/P (MAP) Pulse Ox O2 Delivery O2 Flow Rate FiO2 04/20/17 08:00 96.4 71 15 127/66 (86) 98 04/20/17 04:00 96.4 66 16 120/64 (82) 98 04/20/17 00:00 96.7 66 16 119/67 (84) 95 04/19/17 20:00 70 04/19/17 16:00 97.3 74 16 136/82 (100) 94 04/19/17 12:00 96.9 66 15 113/76 (88) 96 Result Diagram: 04/20/1710 04/20/17609 Imaging Last Impressions Upper GI Series 04/17/17 0000 Signed Impressions: Service Date/Time: Monday, April 17, 2017 12:48 - CONCLUSION: Mild gastroesophageal reflux. Otherwise unremarkable double contrast upper GI series. 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 No significant mesenteric stenotic disease. Harshil Hilton MD Objective Remarks Lying in bed. Calm in no acute distress (was ambulating in [place] earlier) NG clamped at present lungs CTA anteriorly heart rrr no murmurs abdomen globose,+ bowel sounds, diffusely tende. slightly softer no edema A/P Problem List: (1) Diarrhea ICD Codes: R19.7 - Diarrhea, unspecified Plan: stool for c diff negative colonoscopy no significant findings biopsies were done further stool studies ordered and crypto-negative probiotics added improved since npo (2) Nonspecific abdominal pain ICD Codes: R10.9 - Unspecified abdominal pain Plan: on pain med IV, still needing regularly, no improvement with hydroconde will stop. CTA no mesenteric obstruction, some compression celiac artery surgery ,arcuate ligament moderate compression celiac artery ,Plan for possible surgery wed. Started on IV 100mg diflucan for possible julia. Discussed that her abdominal distention has more then likely been contributing to her discomfort, she is was hesitant but agreeded to Ng in attempt to improve her abdominal discomfort abdomen slightly less distended today, output not as much as I thought she would have await GI input (3) Abdominal bloating ICD Codes: R14.0 - Abdominal distension (gaseous) Plan: as above (4) Hypertension ICD Codes: I10 - Hypertension Status: Chronic Plan: bp improved off coreg (5) Type 2 diabetes mellitus with diabetic neuropathy ICD Codes: E11.40 - Type 2 diabetes mellitus with diabetic neuropathy, unspecified Plan: on use novolog sliding scale only since levemir stopped, on cymbalta and lyrica, sugars improved Assessment and Plan NG placed as per GI recommendations still requiring pain control So far it would appear that plan is still for surgery on thursday Problem Qualifiers (1) Diarrhea: Qualified Codes: R19.7 - Diarrhea, unspecified (2) Type 2 diabetes mellitus with diabetic neuropathy: Qualified Codes: E11.40 - Type 2 diabetes mellitus with diabetic neuropathy, unspecified Shani Arce MD Apr 20, 2017 11:56
[2017-04-20] MEDS: FLUCONAZOLE 100 MG PREMIX BAG 50 ML IV SCH (13:00)
[2017-04-20] MEDS: 1/2 NS + KCL 20 MEQ INJ 1,000 ML IV SCH (13:01)
--- NOTE | 2017-04-20 14:20 | HHI.PR ---
Subjective Subjective Notes NG in place. No other major changes. Objective Vitals/I&O Vital Signs Date Time Temp Pulse Resp B/P (MAP) Pulse Ox O2 Delivery O2 Flow Rate FiO2 04/20/17 12:49 18 04/20/17 12:00 97.6 79 161/99 (119) 95 Labs Laboratory Tests Test 04/20/17 06:10 White Blood Count 8.5 Red Blood Count 4.76 Hemoglobin 13.7 Hematocrit 40.5 Mean Corpuscular Volume 84.9 Mean Corpuscular Hemoglobin 28.8 Mean Corpuscular Hemoglobin Concent 33.9 Red Cell Distribution Width 12.4 Platelet Count 257 Mean Platelet Volume 8.0 Neutrophils (%) (Auto) 58.2 Lymphocytes (%) (Auto) 31.1 Monocytes (%) (Auto) 6.1 Eosinophils (%) (Auto) 3.2 Basophils (%) (Auto) 1.4 Neutrophils # (Auto) 5.0 Lymphocytes # (Auto) 2.6 Monocytes # (Auto) 0.5 Eosinophils # (Auto) 0.3 Basophils # (Auto) 0.1 CBC Comment DIFF FINAL Differential Comment Blood Urea Nitrogen 3 Creatinine 0.53 Random Glucose 98 Total Protein 6.2 Albumin 2.6 Calcium Level 8.5 Alkaline Phosphatase 86 Aspartate Amino Transf (AST/SGOT) 15 Alanine Aminotransferase (ALT/SGPT) 19 Total Bilirubin 1.6 Sodium Level 141 Potassium Level 3.7 Chloride Level 104 Carbon Dioxide Level 27.4 Anion Gap 10 Estimat Glomerular Filtration Rate 122 Date/Time Source Procedure Growth Status 04/16/17 15:55 Stool Stool Cryptosporidium Exam - Final NEGATIVE - NO CRYPTOSPORIDIUM ANTIGEN... Complete 04/16/17 15:55 Stool Stool Giardia Antigen (SAJI) - Final NEGATIVE - NO GIARDIA ANTIGEN DETECTE... 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 No significant mesenteric stenotic disease. Harshil Hilton MD Narrative Exam NAD NG in place A/P Assessment and Plan 51 yo F chronic upper abdominal pain worse x 6 weeks assoc with nausea and weight loss. She is scheduled for robot assisted division of median arcuate ligament Thursday at [facility] with Dr. Kathleen and Rik. Please transfer to [facility] for surgery. Ludwig Soares MD Apr 20, 2017 14:20
[2017-04-20] MEDS: HYDROmorphone HCL PF 1 MG/ML VIAL IV PRN ×2 (15:55→20:12)
[2017-04-20] MEDS: ONDANSETRON HCL 4 MG/2 ML VIAL IV PUSH PRN (16:05)
--- NOTE | 2017-04-20 16:14 | HHI.GIFU ---
GI Follow-up Note Consult Follow-up Subjective: Patient laying in bed comfortably, no new complaints except Abdominal pain. NG in place Objective: PHYSICAL EXAMINATION: Vitals signs stable No fever HEENT: Pupils round and reactive to light; normocephalic; atraumatic; no jaundice. Throat is clear. NECK: Neck is supple, no JVD, no lymphadenopathy. CHEST: Chest is clear to auscultation and percussion. CARDIAC: Regular rate and rhythm with no murmur gallop or rubs. ABDOMEN: Soft, nondistended, nontender; no hepatosplenomegaly; bowel sounds are present in all four quadrants. EXTREMITIES: No clubbing, cyanosis, or edema. SKIN: Normal; no rash; no jaundice. CLINICAL PHARMACY MANAGER: No focal deficits; alert and oriented times three. Available Data (labs, X- Rays, Procedues) : Last Impressions Abdomen X-Ray 04/19/17 0000 Signed Impressions: Service Date/Time: Wednesday, April 19, 2017 16:27 - CONCLUSION: 1. No evidence of obstruction. Nagi Baltazar MD Upper GI Series 04/17/17 0000 Signed Impressions: Service Date/Time: Monday, April 17, 2017 12:48 - CONCLUSION: Mild gastroesophageal reflux. Otherwise unremarkable double contrast upper GI series. 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 No significant mesenteric stenotic disease. Harshil Hilton MD Laboratory Tests Test 04/19/17 06:46 04/20/17 06:10 White Blood Count 7.4 TH/MM3 8.5 TH/MM3 Red Blood Count 4.75 MIL/MM3 4.76 MIL/MM3 Hemoglobin 13.6 GM/DL 13.7 GM/DL Hematocrit 40.8 % 40.5 % Mean Corpuscular Volume 86.0 FL 84.9 FL Mean Corpuscular Hemoglobin 28.7 PG 28.8 PG Mean Corpuscular Hemoglobin Concent 33.4 % 33.9 % Red Cell Distribution Width 12.3 % 12.4 % Platelet Count 282 TH/MM3 257 TH/MM3 Mean Platelet Volume 7.6 FL 8.0 FL Neutrophils (%) (Auto) 45.3 % 58.2 % Lymphocytes (%) (Auto) 42.3 % 31.1 % Monocytes (%) (Auto) 7.1 % 6.1 % Eosinophils (%) (Auto) 4.0 % 3.2 % Basophils (%) (Auto) 1.3 % 1.4 % Neutrophils # (Auto) 3.4 TH/MM3 5.0 TH/MM3 Lymphocytes # (Auto) 3.1 TH/MM3 2.6 TH/MM3 Monocytes # (Auto) 0.5 TH/MM3 0.5 TH/MM3 Eosinophils # (Auto) 0.3 TH/MM3 0.3 TH/MM3 Basophils # (Auto) 0.1 TH/MM3 0.1 TH/MM3 CBC Comment DIFF FINAL DIFF FINAL Differential Comment Blood Urea Nitrogen 4 MG/DL 3 MG/DL Creatinine 0.56 MG/DL 0.53 MG/DL Random Glucose 66 MG/DL 98 MG/DL Total Protein 6.6 GM/DL 6.2 GM/DL Albumin 2.8 GM/DL 2.6 GM/DL Calcium Level 8.4 MG/DL 8.5 MG/DL Alkaline Phosphatase 91 U/L 86 U/L Aspartate Amino Transf (AST/SGOT) 14 U/L 15 U/L Alanine Aminotransferase (ALT/SGPT) 20 U/L 19 U/L Total Bilirubin 1.7 MG/DL 1.6 MG/DL Sodium Level 139 MEQ/L 141 MEQ/L Potassium Level 4.0 MEQ/L 3.7 MEQ/L Chloride Level 105 MEQ/L 104 MEQ/L Carbon Dioxide Level 27.1 MEQ/L 27.4 MEQ/L Anion Gap 7 MEQ/L 10 MEQ/L Estimat Glomerular Filtration Rate 115 ML/MIN 122 ML/MIN Allergies Coded Allergies Type Severity Reaction Last Updated Verified Sulfa (Sulfonamide Antibiotics) Allergy Severe BREATHING DIFFICULTIES 03/27/17 No gabapentin Allergy Severe AMNESIA 04/14/17 Yes Active Scripts Medications Dose Route/Sig Max Daily Dose Days Date Category Dose Instructions Potassium Chloride Microencaps 20 Meq Tab 20 Meq PO Q12HR 04/03/17 Rx Erythromycin Base 250 Mg Tab 250 Mg PO TIDAC 90 04/03/17 Rx Pantoprazole (Pantoprazole Sodium) 40 Mg Tab 40 Mg PO DAILY 04/03/17 Rx Tresiba Flextouch Pen Inj (Insulin Degludec Inj) 300 unit/3 ML Pen 60 Units SQ DAILY 30 03/27/17 Rx Farxiga (Dapagliflozin) 5 Mg Tab 5 Mg PO DAILY 03/27/17 Reported Novolog Inj (Insulin Aspart) 1,000 Unit/10 Ml Vial 0 SQ DIRECTED 03/27/17 Reported Sliding Scale as directed. Lyrica (Pregabalin) 75 Mg Cap 75 Mg PO TID 12/23/16 Reported Carvedilol 6.25 Mg Tab 6.25 Mg PO BID 07/07/16 Reported Dorita (Duloxetine HCl) 60 Mg Capdr 60 Mg PO DAILY 07/07/16 Reported ASSESSMENT/PLAN: Seen and examined still with Abdominal pain and distension. Some of the labs still pending. Being transferred to [facility] for arcuate ligament surgery on thursday with Dr. Soares. Gi will sign off, reconsult as needed. thankyou It was a pleasure seeing Rocío Barker. Thank you for this consult. Entered by: Liliya Fountain MD Apr 20, 2017 16:14
[2017-04-21] VITALS: BP 111/65; PULSE 71; RESP 16; TEMP 96.1; O2SAT 96
[2017-04-21] MEDS: PROMETHAZINE HCL 25 MG TAB PO SCH ×5 (01:05→23:40)
[2017-04-21] MEDS: HYDROmorphone HCL PF 1 MG/ML VIAL IV PRN ×5 (03:03→23:40)
[2017-04-21] MEDS: 1/2 NS + KCL 20 MEQ INJ 1,000 ML IV SCH ×2 (03:15→20:17)
[2017-04-21 04:00] VITALS: BP 119/61; PULSE 78; RESP 16; TEMP 96.4; O2SAT 93
[2017-04-21] MEDS: MEDIUM DOSE INSULIN NOVOLOG SUPPLEMENTAL SCALE SQ SCH ×4 (05:33→23:40)
[2017-04-21 08:00] VITALS: BP 118/78; PULSE 74; RESP 20; TEMP 97.4; O2SAT 95
[2017-04-21] MEDS: SODIUM CHLORIDE 0.9% FLUSH 10 ML FLUSH IV FLUSH SCH ×2 (08:20→20:10)
[2017-04-21] MEDS: LIPASE/PROTEASE/AMYLASE (6,000/19,000/30,000) CAP PO SCH ×5 (08:20→18:14)
[2017-04-21] MEDS: PREGABALIN 75 MG CAP PO SCH ×3 (08:20→17:23)
[2017-04-21] MEDS: DULoxetine HCl DR 60 MG CAP PO SCH ×2 (08:20→09:55)
[2017-04-21] MEDS: LACTOBACILLUS ACIDOPHILUS TAB PO SCH ×2 (08:20→20:10)
[2017-04-21] MEDS: RIFAXIMIN 550 MG TAB PO SCH ×4 (08:20→20:10)
[2017-04-21] MEDS: PANTOPRAZOLE SODIUM 40 MG VIAL IV PUSH SCH ×2 (08:20→20:10)
[2017-04-21 10:28] LABS: BICARBONATE 24.8 MEQ/L (21.0-32.0)
--- NOTE | 2017-04-21 11:00 | HHI.PR ---
Subjective Remarks Still with abdominal pain, no diarrhea, ambulating in [place] Objective Vitals Vital Signs Date Time Temp Pulse Resp B/P (MAP) Pulse Ox O2 Delivery O2 Flow Rate FiO2 04/21/17 08:50 18 04/21/17 08:50 18 04/21/17 08:00 97.4 74 20 118/78 (91) 95 04/21/17 04:00 96.4 78 16 119/61 (80) 93 04/21/17 00:00 96.1 71 16 111/65 (80) 96 04/20/17 20:00 97.7 81 18 129/58 (81) 96 04/20/17 20:00 83 04/20/17 17:49 72 04/20/17 16:00 97.6 81 18 134/58 (83) 95 04/20/17 12:49 18 04/20/17 12:00 97.6 79 20 161/99 (119) 95 Result Diagram: 04/20/17 0610 04/21/17 1000 Imaging Last Impressions Upper GI Series 04/17/17 0000 Signed Impressions: Service Date/Time: Monday, April 17, 2017 12:48 - CONCLUSION: Mild gastroesophageal reflux. Otherwise unremarkable double contrast upper GI series. 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 No significant mesenteric stenotic disease. Harshil Hilton MD Objective Remarks Lying in bed. Calm in no acute distress NG clamped at present lungs CTA anteriorly heart rrr no murmurs abdomen globose,+ bowel sounds, diffusely tender soft no edema A/P Problem List: (1) Diarrhea ICD Codes: R19.7 - Diarrhea, unspecified Plan: stool for c diff negative colonoscopy no significant findings biopsies were done further stool studies ordered and crypto-negative no further episodes since yesterday (2) Nonspecific abdominal pain ICD Codes: R10.9 - Unspecified abdominal pain Plan: on pain med IV, still needing regularly, CTA no mesenteric obstruction , some compression celiac artery surgery ,arcuate ligament moderate compression celiac artery ,Plan for possible surgery wed. Started on IV 100mg diflucan for possible julia. abdomen slightly less distended today, output not as much as I thought she would have GI has signed off going to OR tommorrow per surgery (3) Abdominal bloating ICD Codes: R14.0 - Abdominal distension (gaseous) Plan: as above (4) Hypertension ICD Codes: I10 - Hypertension Status: Chronic Plan: bp improved off coreg (5) Type 2 diabetes mellitus with diabetic neuropathy ICD Codes: E11.40 - Type 2 diabetes mellitus with diabetic neuropathy, unspecified Plan: on use novolog sliding scale only since levemir stopped, on cymbalta and lyrica, sugars improved Assessment and Plan still requiring pain control So far it would appear that plan is still for surgery on thursday Problem Qualifiers (1) Diarrhea: Qualified Codes: R19.7 - Diarrhea, unspecified (2) Type 2 diabetes mellitus with diabetic neuropathy: Qualified Codes: E11.40 - Type 2 diabetes mellitus with diabetic neuropathy, unspecified Shani Arce MD Apr 21, 2017 11:00
[2017-04-21 12:00] VITALS: BP 170/79; PULSE 84; RESP 20; TEMP 97.2; O2SAT 97
[2017-04-21] MEDS: FLUCONAZOLE 100 MG PREMIX BAG 50 ML IV SCH (13:23)
[2017-04-21 16:00] VITALS: BP 116/73; PULSE 86; RESP 18; TEMP 97.9; O2SAT 95
[2017-04-21 20:00] VITALS: BP 119/70; PULSE 85; RESP 20; TEMP 97.7; O2SAT 95
[2017-04-21] MEDS: MAGNESIUM HYDROXIDE SUSP 30 ML CUP PO PRN (20:27)
[2017-04-22] VITALS: BP 128/76; PULSE 81; RESP 20; TEMP 97.4; O2SAT 96
[2017-04-22] MEDS ORDERED: METOPROLOL TARTRATE 25 MG TAB PO PRN (03:30)
[2017-04-22] MEDS ORDERED: LACTATED RINGER'S 1000 ML IV PRN (03:30)
[2017-04-22] MEDS: HYDROmorphone HCL PF 1 MG/ML VIAL IV PRN ×4 (03:43→22:59)
[2017-04-22 04:00] VITALS: BP 97/60; PULSE 76; RESP 18; TEMP 97.5; O2SAT 96
[2017-04-22] MEDS: MEDIUM DOSE INSULIN NOVOLOG SUPPLEMENTAL SCALE SQ SCH ×4 (05:39→22:59)
[2017-04-22] MEDS: PROMETHAZINE HCL 25 MG TAB PO SCH ×4 (05:39→22:59)
[2017-04-22 08:00] VITALS: BP 103/60; PULSE 71; RESP 16; TEMP 96.7; O2SAT 95
[2017-04-22] MEDS: RIFAXIMIN 550 MG TAB PO SCH ×2 (08:21→20:43)
[2017-04-22] MEDS: LACTOBACILLUS ACIDOPHILUS TAB PO SCH ×2 (08:21→20:43)
[2017-04-22] MEDS: PREGABALIN 75 MG CAP PO SCH ×3 (08:21→17:12)
[2017-04-22] MEDS: LIPASE/PROTEASE/AMYLASE (6,000/19,000/30,000) CAP PO SCH ×3 (08:21→17:12)
[2017-04-22] MEDS: DULoxetine HCl DR 60 MG CAP PO SCH (08:21)
[2017-04-22] MEDS: PANTOPRAZOLE SODIUM 40 MG VIAL IV PUSH SCH ×2 (08:23→19:36)
[2017-04-22] MEDS: SODIUM CHLORIDE 0.9% FLUSH 10 ML FLUSH IV FLUSH SCH ×2 (08:24→19:36)
[2017-04-22] MEDS: 1/2 NS + KCL 20 MEQ INJ 1,000 ML IV SCH ×2 (09:00→20:43)
--- NOTE | 2017-04-22 11:38 | HHI.PR ---
Subjective Remarks Pt reports that her abd pain is relatively unchanged She has not had any vomiting but did have some dry heaves yesterday Afebrile Pt is planned for surgical intervention this afternoon Pt denies any flatus today and no BM in 2 days Objective Vitals Vital Signs Date Time Temp Pulse Resp B/P (MAP) Pulse Ox O2 Delivery O2 Flow Rate FiO2 04/22/17 08:00 96.7 71 16 103/60 (74) 95 04/22/17 04:00 97.5 76 18 97/60 (72) 96 04/22/17 00:00 97.4 81 20 128/76 (93) 96 04/21/17 20:00 97.7 85 20 119/70 (86) 95 04/21/17 16:00 97.9 86 18 116/73 (87) 95 04/21/17 14:15 16 04/21/17 14:15 16 04/21/17 12:00 97.2 84 20 170/79 (109) 97 Result Diagram: 04/20/17 0610 04/21/17 1000 Other Results Laboratory Tests Test 04/21/17 10:00 Blood Urea Nitrogen 3 MG/DL Creatinine 0.51 MG/DL Random Glucose 103 MG/DL Calcium Level 8.6 MG/DL Sodium Level 137 MEQ/L Potassium Level 4.0 MEQ/L Chloride Level 101 MEQ/L Carbon Dioxide Level 24.8 MEQ/L Anion Gap 11 MEQ/L Estimat Glomerular Filtration Rate 128 ML/MIN Imaging Last Impressions Abdomen X-Ray 04/19/17 0000 Signed Impressions: Service Date/Time: Wednesday, April 19, 2017 16:27 - CONCLUSION: 1. No evidence of obstruction. Nagi Baltazar MD Upper GI Series 04/17/17 0000 Signed Impressions: Service Date/Time: Monday, April 17, 2017 12:48 - CONCLUSION: Mild gastroesophageal reflux. Otherwise unremarkable double contrast upper GI series. 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 No significant mesenteric stenotic disease. Harshil Hilton MD Objective Remarks General: NAD, AAOx3 ENT: NG clamped Chest: CTA anteriorly Cardiac: Regular Abd: +BS, soft, diffusely tender worse in the upper abdomen/LUQ Ext: no edema A/P Problem List: (1) Nonspecific abdominal pain ICD Codes: R10.9 - Unspecified abdominal pain Plan: - Pt is a 51 yo WF with IDDM, HTN and GERD who was admitted to [facility] with complaints of upper abd pain, primarily LUQ and diarrhea. The abd pain has been constant for 6 weeks, associated with nausea and is worse after eating. She has had occasional vomiting, loose stools, and 12 lb weight loss. - Pt had an outpt evaluation with GI for the above complaints and had a CT Abd/ pelvis which was negative and was given Reglan without improvement. - Pt was then admitted to [facility] in 03/2017 with these same complaints and again had a negative CT scan without evidence of obstruction. She had NGT placed and bowel rest. SBFT was negative as well. She was sent home on EES but presented back to GI with continued issues with abd pain, diarrhea, N/V. - Pt was admitted to [facility] for further workup on 04/13. - Pt underwent EGD/colonoscopy (04/14) with Dr. Luciano --> gastritis, esophagitis (?julia esophagitis), hiatal hernia, poor prep, small internal hemorrhoids. Pathology consistent with chemical gastropathy, moderate to severe acute suppurative esophagitis (fungal stain is negative and viral inclusions are not observed), biopsy from descending colon with features suggestive of collagenous colitis. - GI has signed off - CTA (04/13) --> showed moderate compression of celiac artery by arcuate ligament. - Generaly Surgery is following and pt is planned for division of median arcuate ligament today with Dr. Soares and Dr. Kathleen (2) Diarrhea ICD Codes: R19.7 - Diarrhea, unspecified Plan: - Stool were negative for C diff - Stool studies for Cryptosporidium and Giardia are negative - Colonoscopy with pathology in descending colon with features of collagenous colitis - Pt currently without diarrhea x 2 days. (3) Abdominal bloating ICD Codes: R14.0 - Abdominal distension (gaseous) Plan: - As above (4) Hypertension ICD Codes: I10 - Hypertension Status: Chronic Plan: - Stable off coreg (5) Type 2 diabetes mellitus with diabetic neuropathy ICD Codes: E11.40 - Type 2 diabetes mellitus with diabetic neuropathy, unspecified Plan: - Novolog sliding scale - Accu checks Assessment and Plan Patient examined. Assessment and plan formulated with Savanna Hemphill PA-C. I agree with the above. abdomen pain. going for arcuate ligament surgery. Problem Qualifiers (1) Diarrhea: Qualified Codes: R19.7 - Diarrhea, unspecified (2) Type 2 diabetes mellitus with diabetic neuropathy: Qualified Codes: E11.40 - Type 2 diabetes mellitus with diabetic neuropathy, unspecified Savanna Hemphill Apr 22, 2017 11:38 Angel Luis Mccracken MD Apr 22, 2017 12:08
[2017-04-22 12:00] VITALS: BP 112/57; PULSE 76; RESP 17; TEMP 97.3; O2SAT 95
[2017-04-22] MEDS ORDERED: ePHEDrine/NS 25 MG/5 ML SYR IV ONE (12:00)
[2017-04-22] MEDS ORDERED: VECURONIUM BROMIDE 20 MG VIAL IV ONE (12:00)
[2017-04-22] MEDS ORDERED: DEXAMETHASONE SOD PHOS 4 MG/ML VIAL IV ONE (12:00)
[2017-04-22] MEDS ORDERED: MIDAZOLAM HCL 2 MG/2 ML VIAL IV ONE (12:00)
[2017-04-22] MEDS ORDERED: ceFAZolin INJ 1,000 MG VIAL IV ONE (12:00)
[2017-04-22] MEDS ORDERED: ROCURONIUM INJ 50 MG/5 ML SYRINGE IV PUSH ONE (12:00)
[2017-04-22] MEDS ORDERED: NORMOSOL R INJ 1,000 ML IV ONE (12:00)
[2017-04-22] MEDS ORDERED: SODIUM CHLORID 0.9% 500 ML INJ 500 ML IV ONE (12:00)
[2017-04-22] MEDS ORDERED: SUCCINYLCHOLINE CHLORIDE 100 MG/5 ML SYRINGE IV PUSH ONE (12:00)
[2017-04-22] MEDS ORDERED: PROPOFOL 200 MG/20 ML AMP IV ONE (12:00)
[2017-04-22] MEDS ORDERED: PHENYLEPH/NS 1000 MCG/10 ML SYR IV ONE (12:00)
--- NOTE | 2017-04-22 13:12 | HHI.PR ---
Subjective Subjective Notes No major change in symptoms. Objective Vitals/I&O Vital Signs Date Time Temp Pulse Resp B/P (MAP) Pulse Ox O2 Delivery O2 Flow Rate FiO2 04/22/17 08:00 96.7 71 16 103/60 (74) 95 Labs Date/Time Source Procedure Growth Status 04/16/17 15:55 Stool Stool Cryptosporidium Exam - Final NEGATIVE - NO CRYPTOSPORIDIUM ANTIGEN... Complete 04/16/17 15:55 Stool Stool Giardia Antigen (SAJI) - Final NEGATIVE - NO GIARDIA ANTIGEN DETECTE... 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 No significant mesenteric stenotic disease. Harshil Hilton MD Narrative Exam NAD NG in place Abd soft A/P Assessment and Plan 51 yo F chronic upper abdominal pain worse x 6 weeks assoc with nausea and weight loss. Proceed to OR today for robot assisted division of median arcuate ligament today with Dr. Rose. All remaining questions from patient and her were answered. Ludwig Soares MD Apr 22, 2017 13:12
[2017-04-22] MEDS ORDERED: BUPIVACAINE/EPINEPHRINE 0.25% 50 ML VIAL ONE (14:54)
[2017-04-22] MEDS ORDERED: ceFAZolin 2 GM PREMIX 50 ML ONE (14:54)
[2017-04-22] MEDS ORDERED: ACETAMINOPHEN 1000 MG/100 ML 100 ML IV ONE (15:26)
--- NOTE | 2017-04-22 18:01 | PD.OP ---
cc: Manisha Estrada MD; Rodger,Ludwig MACIAS Operative Report Date of Surgery: Apr 22, 2017 Preoperative Diagnosis: (1) Median arcuate ligament syndrome Postoperative Diagnosis: (1) Median arcuate ligament syndrome Procedure: Robotic assisted laparoscopic division of median arcuate ligament Surgeon: Ludwig Soares Roller(s): Hever Lunsford DIP TUBE ASSEMBLER MACHINE Operation and Findings: EBL: 20cc Operative findings: Tight band of diaphragmatic muscle constricting proximal celiac artery. No upper abdominal adhesions. Procedure in detail: The patient was taken to the operating room and placed in supine position. General endotracheal anesthesia was induced. The abdomen was prepped and draped in usual sterile fashion and a surgical timeout was performed to verify correct patient procedure and site. Local anesthetic was injected in the skin and subcutaneous tissue in the epigastrium 15 cm inferior to the xiphoid and a 1 cm incision made. A 5 mm trocar was used to enter the abdomen directly with the laparoscope in place. The abdomen was insufflated to 15 mmHg with CO2 gas which the patient tolerated well. An 8 mm robotic trocar was placed in the midclavicular line in the left upper abdomen. A 5 mm railway yard assistant port placed in the left lateral abdomen. A 8 mm robotic trocar placed in the right upper abdomen and in the right upper lateral abdomen and a 5 mm trocar placed. The right lateral trocar Dynaflex liver retractor was placed to position the left lateral lobe of the liver. It was secured in place with a robot arm. The epigastric port was changed to a 12 mm port. A Rubens drain and 4 x 4 placed in the abdomen. At this point the robot was docked. Attention was turned to the GE junction. The pars flaccida was divided with the Harmonic scalpel and the hepatogastric ligament incised to the right sly. Posteriorly careful blunt dissection was carried out to visualize the left sly. The anterior and to the left of the GE junction the left sly was also identified. The tunnel was made posterior to the fundus and a grasper brought out on the other side. The Rubens drain was placed around the esophagus. The fundus was positioned laterally using the Rubens drain and posteriorly the diaphragm muscle was divided to encounter the adventitia of the aorta. The posterior diaphragm was very carefully divided along the aorta inferiorly until the takeoff of the celiac artery was encountered. Careful blunt dissection, judicious use of Harmonic scalpel, and suction were used to delineate the proximal celiac artery. The proximal celiac artery had a tight bands of diaphragmatic muscle partially kinking the artery at its origin. These were very carefully divided with electrocautery to free the proximal celiac artery from any constricting attachments. At this point there was small oozing near the inferior portion and Surgicel smell was placed. A single [id number] silk suture was placed to reapproximate the diaphragmatic hiatus. All object was then placed in the abdomen were removed. The liver retractor was removed. The 10 mm port site fascia was closed with a single 0 Vicryl suture. Trochars were removed and the abdomen was allowed to desufflate. Skin closed with subcuticular 4-0 Monocryl and Dermabond. The patient tolerated procedure well was extubated and taken to PACU in stable condition. Ludwig Soares MD Apr 22, 2017 18:01
[2017-04-22] MEDS ORDERED: DO NOT ADM ANY ANTICOAGULANT DRUGS PRN (18:30)
[2017-04-22] MEDS ORDERED: *ONDANSETRON 4 MG VIAL PERIprocedural Use ONLY ONE (19:39)
[2017-04-22 20:00] VITALS: BP 135/72; PULSE 103; RESP 18; TEMP 97.9; O2SAT 93
[2017-04-22] MEDS: SCOPOLAMINE 1.5 MG PATCH T-DERMAL SCH (20:43)
[2017-04-23] VITALS (8 sets, daily range): BP systolic 105–142; BP diastolic 58–77; PULSE 86–95; RESP 18–20; TEMP 96.8–98.6; O2SAT 92–97
[2017-04-23] MEDS: HYDROmorphone HCL PF 1 MG/ML VIAL IV PRN ×4 (04:14→18:10)
[2017-04-23] MEDS: MEDIUM DOSE INSULIN NOVOLOG SUPPLEMENTAL SCALE SQ SCH ×3 (05:16→18:00)
[2017-04-23] MEDS: PROMETHAZINE HCL 25 MG TAB PO SCH ×3 (05:16→18:09)
[2017-04-23] MEDS: 1/2 NS + KCL 20 MEQ INJ 1,000 ML IV SCH ×2 (09:06→20:59)
[2017-04-23] MEDS: LACTOBACILLUS ACIDOPHILUS TAB PO SCH ×2 (09:25→20:53)
[2017-04-23] MEDS: RIFAXIMIN 550 MG TAB PO SCH ×2 (09:25→20:53)
[2017-04-23] MEDS: DULoxetine HCl DR 60 MG CAP PO SCH (09:25)
[2017-04-23] MEDS: LIPASE/PROTEASE/AMYLASE (6,000/19,000/30,000) CAP PO SCH ×3 (09:26→18:09)
[2017-04-23] MEDS: PREGABALIN 75 MG CAP PO SCH ×3 (09:26→18:09)
[2017-04-23] MEDS: SODIUM CHLORIDE 0.9% FLUSH 10 ML FLUSH IV FLUSH SCH ×2 (09:27→20:54)
[2017-04-23] MEDS: PANTOPRAZOLE SODIUM 40 MG VIAL IV PUSH SCH ×2 (09:27→20:53)
--- NOTE | 2017-04-23 10:59 | HHI.PR ---
Subjective Remarks Pt complains of abdominal pain, diffusely throughout the abdomen She is POD #1 from division of median arcuate ligament today with Dr. Soares and Dr. 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 No upper abdominal adhesions. Tolerating some clear liquids No flatus No vomiting. Objective Vitals Vital Signs Date Time Temp Pulse Resp B/P (MAP) Pulse Ox O2 Delivery O2 Flow Rate FiO2 04/23/17 08:00 96.8 88 18 126/73 (90) 92 04/23/17 04:58 96.8 87 18 121/64 (83) 93 04/23/17 00:33 96.8 95 18 142/77 (98) 92 04/22/17 20:00 97.9 103 18 135/72 (93) 93 04/22/17 19:56 101 14 132/69 (90) 95 Nasal Cannula 2 04/22/17 19:45 97.8 100 13 130/70 (90) 95 Nasal Cannula 2 04/22/17 19:30 100 13 128/70 (89) 94 Nasal Cannula 2 04/22/17 19:15 100 13 129/69 (89) 95 Nasal Cannula 2 04/22/17 19:00 97 14 130/63 (85) 97 Nasal Cannula 4 04/22/17 18:45 93 15 118/56 (76) 92 Simple Mask 6 04/22/17 18:30 96 17 136/74 (94) 95 Simple Mask 6 04/22/17 18:15 98 16 143/67 (92) 96 Simple Mask 6 04/22/17 18:09 T-Piece 04/22/17 18:08 98.1 99 20 142/72 (95) 99 T-Piece 04/22/17 12:00 97.3 76 17 112/57 (75) 95 Result Diagram: 04/20/17 0610 04/21/17 1000 Imaging Last Impressions Abdomen X-Ray 04/19/17 0000 Signed Impressions: Service Date/Time: Wednesday, April 19, 2017 16:27 - CONCLUSION: 1. No evidence of obstruction. Nagi Baltazar MD Upper GI Series 04/17/17 0000 Signed Impressions: Service Date/Time: Monday, April 17, 2017 12:48 - CONCLUSION: Mild gastroesophageal reflux. Otherwise unremarkable double contrast upper GI series. 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 No significant mesenteric stenotic disease. Harshil Hilton MD Objective Remarks General: NAD, AAOx3 ENT: NG clamped Chest: CTA anteriorly Cardiac: Regular Abd: +BS, soft, diffusely tender, mildly distended, 6 trocar insertion sites are sutures and c/d/i Ext: no edema A/P Problem List: (1) Nonspecific abdominal pain ICD Codes: R10.9 - Unspecified abdominal pain Plan: - Pt is a 51 yo WF with IDDM, HTN and GERD who was admitted to [facility] on with complaints of upper abd pain, primarily LUQ and diarrhea. The abd pain has been constant for 6 weeks, associated with nausea and is worse after eating. She has had occasional vomiting, loose stools, and 12 lb weight loss. - Pt had an outpt evaluation with GI for the above complaints and had a CT Abd/ pelvis which was negative and was given Reglan without improvement. - Pt was then admitted to [facility] in 03/2017 with these same complaints and again had a negative CT scan without evidence of obstruction. She had NGT placed and bowel rest. SBFT was negative as well. She was sent home on EES but presented back to GI with continued issues with abd pain, diarrhea, N/V. - Pt was admitted to [facility] for further workup on 04/13. - Pt underwent EGD/colonoscopy (04/14) with Dr. Luciano --> gastritis, esophagitis (?julia esophagitis), hiatal hernia, poor prep, small internal hemorrhoids. Pathology consistent with chemical gastropathy, moderate to severe acute suppurative esophagitis (fungal stain is negative and viral inclusions are not observed), biopsy from descending colon with features suggestive of collagenous colitis. - GI has signed off - CTA (04/13) --> showed moderate compression of celiac artery by arcuate ligament. - General Surgery is following. - Pt underwent division of median arcuate ligament today with Dr. Soares and Dr. 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 No upper abdominal adhesions. - Pain control PRN - Clear liquid diet, advance per GS. NGT clamped and in place. (2) Diarrhea ICD Codes: R19.7 - Diarrhea, unspecified Plan: - Stool were negative for C diff - Stool studies for Cryptosporidium and Giardia are negative - Colonoscopy with pathology in descending colon with features of collagenous colitis - Pt currently without diarrhea x 3 days. (3) Abdominal bloating ICD Codes: R14.0 - Abdominal distension (gaseous) Plan: - As above (4) Hypertension ICD Codes: I10 - Hypertension Status: Chronic Plan: - Stable off coreg (5) Type 2 diabetes mellitus with diabetic neuropathy ICD Codes: E11.40 - Type 2 diabetes mellitus with diabetic neuropathy, unspecified Plan: - Novolog sliding scale - Accu checks Problem Qualifiers (1) Diarrhea: Qualified Codes: R19.7 - Diarrhea, unspecified (2) Type 2 diabetes mellitus with diabetic neuropathy: Qualified Codes: E11.40 - Type 2 diabetes mellitus with diabetic neuropathy, unspecified Savanna Hemphill Apr 23, 2017 10:59
--- NOTE | 2017-04-23 12:48 | HHI.PR ---
Subjective Subjective Notes She c/o pain. Still has nausea. Objective Vitals/I&O Vital Signs Date Time Temp Pulse Resp B/P (MAP) Pulse Ox O2 Delivery O2 Flow Rate FiO2 04/23/17 12:41 92 04/23/17 11:30 98.1 88 18 126/62 (83) 04/22/17 19:56 Nasal Cannula 2 Labs Date/Time Source Procedure Growth Status 04/16/17 15:55 Stool Stool Cryptosporidium Exam - Final NEGATIVE - NO CRYPTOSPORIDIUM ANTIGEN... Complete 04/16/17 15:55 Stool Stool Giardia Antigen (SAJI) - Final NEGATIVE - NO GIARDIA ANTIGEN DETECTE... 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 No significant mesenteric stenotic disease. Harshil Hilton MD Narrative Exam NAD NG in place Abd Stratopy, inc c/d/i A/P Assessment and Plan 51 yo F chronic upper abdominal pain worse x 6 weeks assoc with nausea and weight loss, POD 1 division of median arcuate ligament Still with nausea. C/o pain from surgery. D/c NGT. Cont clears. RodgerLudwig MD Apr 23, 2017 12:48
[2017-04-23 13:01] LABS: VASOACTIVE INTESTINAL POLYPEPT <50 pg/mL (<75)
[2017-04-24] VITALS: BP 120/62; PULSE 80; RESP 20; TEMP 96.9; O2SAT 93
[2017-04-24] MEDS: PROMETHAZINE HCL 25 MG TAB PO SCH ×4 (00:07→17:49)
[2017-04-24] MEDS: MEDIUM DOSE INSULIN NOVOLOG SUPPLEMENTAL SCALE SQ SCH ×4 (00:12→17:55)
[2017-04-24] MEDS: HYDROmorphone HCL PF 1 MG/ML VIAL IV PRN ×4 (00:59→14:39)
[2017-04-24 07:28] VITALS: BP 128/80; PULSE 73; RESP 14; TEMP 96.6; O2SAT 96
[2017-04-24] MEDS: LACTOBACILLUS ACIDOPHILUS TAB PO SCH ×2 (08:40→19:54)
[2017-04-24] MEDS: PANTOPRAZOLE SODIUM 40 MG VIAL IV PUSH SCH ×2 (08:40→19:54)
[2017-04-24] MEDS: PREGABALIN 75 MG CAP PO SCH ×3 (08:40→17:49)
[2017-04-24] MEDS: DULoxetine HCl DR 60 MG CAP PO SCH (08:40)
[2017-04-24] MEDS: LIPASE/PROTEASE/AMYLASE (6,000/19,000/30,000) CAP PO SCH ×3 (08:40→17:49)
[2017-04-24] MEDS: SODIUM CHLORIDE 0.9% FLUSH 10 ML FLUSH IV FLUSH SCH ×2 (08:40→20:07)
[2017-04-24] MEDS: RIFAXIMIN 550 MG TAB PO SCH ×2 (08:42→19:54)
--- NOTE | 2017-04-24 08:53 | HHI.PR ---
Subjective Subjective Notes C/o pain at incision sites. Still with nausea. Eduardo clears. Objective Vitals/I&O Vital Signs Date Time Temp Pulse Resp B/P (MAP) Pulse Ox O2 Delivery O2 Flow Rate FiO2 04/24/17 07:28 96.6 73 14 128/80 (96) 96 04/22/17 19:56 Nasal Cannula 2 Labs Date/Time Source Procedure Growth Status 04/16/17 15:55 Stool Stool Cryptosporidium Exam - Final NEGATIVE - NO CRYPTOSPORIDIUM ANTIGEN... Complete 04/16/17 15:55 Stool Stool Giardia Antigen (SAJI) - Final NEGATIVE - NO GIARDIA ANTIGEN DETECTE... 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 No significant mesenteric stenotic disease. Harshil Hilton MD Narrative Exam NAD [employer] c/d/i, mod distention A/P Assessment and Plan 51 yo F chronic upper abdominal pain worse x 6 weeks assoc with nausea and weight loss, POD 2 division of median arcuate ligament Still with nausea. C/o pain from surgery. Fulls. Start oral pain meds. Cont phenergan, scopolamine patch, prn zofran. D/ c soledad. Ludwig Soares MD Apr 24, 2017 08:53
[2017-04-24] MEDS: 1/2 NS + KCL 20 MEQ INJ 1,000 ML IV SCH ×2 (08:56→20:07)
[2017-04-24] MEDS ORDERED: ACETAMINOPHEN/HYDROcodone 325 MG/5 MG TAB PO PRN (09:00)
--- NOTE | 2017-04-24 10:10 | HHI.PR ---
Subjective Remarks Pt passed a small amount of stool last night +Flatus Tolerating clear liquids Rowe out NGT out Objective Vitals Vital Signs Date Time Temp Pulse Resp B/P (MAP) Pulse Ox O2 Delivery O2 Flow Rate FiO2 04/24/17 07:28 96.6 73 14 128/80 (96) 96 04/24/17 00:00 96.9 80 20 120/62 (81) 93 04/23/17 20:00 97.7 94 20 117/62 (80) 97 04/23/17 16:00 97.8 86 18 105/61 (76) 93 04/23/17 13:30 98.6 88 18 124/58 (80) 92 04/23/17 12:41 92 04/23/17 11:30 98.1 88 18 126/62 (83) 92 Result Diagram: 04/20/17 0610 04/21/17 1000 Imaging Last Impressions Abdomen X-Ray 04/19/17 0000 Signed Impressions: Service Date/Time: Wednesday, April 19, 2017 16:27 - CONCLUSION: 1. No evidence of obstruction. Nagi Baltazar MD Upper GI Series 04/17/17 0000 Signed Impressions: Service Date/Time: Monday, April 17, 2017 12:48 - CONCLUSION: Mild gastroesophageal reflux. Otherwise unremarkable double contrast upper GI series. 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 No significant mesenteric stenotic disease. Harshil Hilton MD Objective Remarks General: NAD, AAOx3 Chest: CTA anteriorly Cardiac: Regular Abd: +BS, soft, diffusely tender, mildly distended (improving), 6 trocar insertion sites are sutured and c/d/i Ext: no edema A/P Problem List: (1) Nonspecific abdominal pain ICD Codes: R10.9 - Unspecified abdominal pain Plan: - Pt is a 51 yo WF with IDDM, HTN and GERD who was admitted to [facility] [place] on with complaints of upper abd pain, primarily LUQ and diarrhea. The abd pain has been constant for 6 weeks, associated with nausea and is worse after eating. She has had occasional vomiting, loose stools, and 12 lb weight loss. - Pt had an outpt evaluation with GI for the above complaints and had a CT Abd/ pelvis which was negative and was given Reglan without improvement. - Pt was then admitted to [facility] in 03/2017 with these same complaints and again had a negative CT scan without evidence of obstruction. She had NGT placed and bowel rest. SBFT was negative as well. She was sent home on EES but presented back to GI with continued issues with abd pain, diarrhea, N/V. - Pt was admitted to [facility] [facility] for further workup on 04/13. - Pt underwent EGD/colonoscopy (04/14) with Dr. Luciano --> gastritis, esophagitis (?julia esophagitis), hiatal hernia, poor prep, small internal hemorrhoids. Pathology consistent with chemical gastropathy, moderate to severe acute suppurative esophagitis (fungal stain is negative and viral inclusions are not observed), biopsy from descending colon with features suggestive of collagenous colitis. - GI has signed off - CTA (04/13) --> showed moderate compression of celiac artery by arcuate ligament. - General Surgery is following. - Pt underwent division of median arcuate ligament today with Dr. Soares and Dr. 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 No upper abdominal adhesions. - NGT out and pt tolerating clear liquids, pt to be advanced to full liquids today - Rowe cath removed on 04/24 - Pain control PRN - Encourage OOB - PT evaluation (2) Diarrhea ICD Codes: R19.7 - Diarrhea, unspecified Plan: - Stool were negative for C diff - Stool studies for Cryptosporidium and Giardia are negative - Colonoscopy with pathology in descending colon with features of collagenous colitis - Pt currently without diarrhea x 3 days. (3) Abdominal bloating ICD Codes: R14.0 - Abdominal distension (gaseous) Plan: - As above (4) Hypertension ICD Codes: I10 - Hypertension Status: Chronic Plan: - Stable off coreg (5) Type 2 diabetes mellitus with diabetic neuropathy ICD Codes: E11.40 - Type 2 diabetes mellitus with diabetic neuropathy, unspecified Plan: - Novolog sliding scale - Accu checks Assessment and Plan Patient examined. Assessment and plan formulated with Savanna Hemphill PA-C. I agree with the above. s/p median arcuate ligament surgery. ngt out. rowe out. advancing diet slowly. d/c when ok with gen surgery. Problem Qualifiers (1) Diarrhea: Qualified Codes: R19.7 - Diarrhea, unspecified (2) Type 2 diabetes mellitus with diabetic neuropathy: Qualified Codes: E11.40 - Type 2 diabetes mellitus with diabetic neuropathy, unspecified Savanna Hemphill Apr 24, 2017 10:10 Angel Luis Mccracken MD Apr 24, 2017 12:32
[2017-04-24 11:45] VITALS: BP 109/61; PULSE 88; RESP 14; TEMP 97; O2SAT 96
[2017-04-24] MEDS: ACETAMINOPHEN/HYDROcodone 325 MG/5 MG TAB PO PRN ×3 (12:00→22:13)
[2017-04-24 13:53] VITALS: O2SAT 96
[2017-04-24] MEDS: SODIUM CHLORIDE 0.9% FLUSH 10 ML FLUSH IV FLUSH PRN (14:40)
[2017-04-24 16:00] VITALS: BP 135/66; PULSE 98; RESP 20; TEMP 97.8; O2SAT 99
[2017-04-24 20:00] VITALS: BP 126/76; PULSE 99; RESP 20; TEMP 96.2; O2SAT 95
[2017-04-24] MEDS: BENZOCAINE 6 MG/MENTHOL 10 MG LOZENGE BUCCAL PRN (20:07)
[2017-04-25] VITALS (8 sets, daily range): BP systolic 97–119; BP diastolic 53–66; PULSE 77–86; RESP 18–20; TEMP 96.1–96.4; O2SAT 93–99
[2017-04-25] MEDS: PROMETHAZINE HCL 25 MG TAB PO SCH ×4 (00:58→17:45)
[2017-04-25] MEDS: MEDIUM DOSE INSULIN NOVOLOG SUPPLEMENTAL SCALE SQ SCH ×5 (01:03→22:49)
[2017-04-25] MEDS: ACETAMINOPHEN/HYDROcodone 325 MG/5 MG TAB PO PRN ×4 (01:43→20:30)
[2017-04-25] MEDS: HYDROmorphone HCL PF 0.5 MG/0.5 ML SYRINGE IV PUSH PRN ×4 (03:12→22:47)
[2017-04-25] MEDS: 1/2 NS + KCL 20 MEQ INJ 1,000 ML IV SCH ×2 (07:23→18:12)
[2017-04-25] MEDS: PANTOPRAZOLE SODIUM 40 MG VIAL IV PUSH SCH ×2 (08:03→20:26)
[2017-04-25] MEDS: SODIUM CHLORIDE 0.9% FLUSH 10 ML FLUSH IV FLUSH SCH ×2 (08:03→20:36)
--- NOTE | 2017-04-25 08:23 | HHI.PR ---
Subjective Subjective Notes pt c/o diarrhea states abd pain better nausea still there but better Objective Vitals/I&O Vital Signs Date Time Temp Pulse Resp B/P (MAP) Pulse Ox O2 Delivery O2 Flow Rate FiO2 04/25/17 08:00 96.1 81 18 119/66 (83) 97 04/25/17 02:00 21 04/22/17 19:56 Nasal Cannula 2 Labs Date/Time Source Procedure Growth Status 04/16/17 15:55 Stool Stool Cryptosporidium Exam - Final NEGATIVE - NO CRYPTOSPORIDIUM ANTIGEN... Complete 04/16/17 15:55 Stool Stool Giardia Antigen (SAJI) - Final NEGATIVE - NO GIARDIA ANTIGEN DETECTE... 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 No significant mesenteric stenotic disease. Harshil Hilton MD Abdomen: Post-op tenderness Extremities: Perfused Wound Wound : Wound Location: Abdomen Appearance: Clean & Dry A/P Assessment and Plan s/p accurate ligament release slowly improving OOB ambulate soft diet González Kathleen MD Apr 25, 2017 08:23
[2017-04-25] MEDS: PREGABALIN 75 MG CAP PO SCH ×3 (09:15→17:45)
[2017-04-25] MEDS: LIPASE/PROTEASE/AMYLASE (6,000/19,000/30,000) CAP PO SCH ×3 (09:15→17:45)
[2017-04-25] MEDS: DULoxetine HCl DR 60 MG CAP PO SCH (09:15)
[2017-04-25] MEDS: RIFAXIMIN 550 MG TAB PO SCH ×2 (09:15→20:27)
[2017-04-25] MEDS: LACTOBACILLUS ACIDOPHILUS TAB PO SCH ×2 (09:15→20:27)
[2017-04-25] MEDS: SODIUM CHLORIDE 0.9% FLUSH 10 ML FLUSH IV FLUSH PRN (09:22)
--- NOTE | 2017-04-25 10:59 | HHI.PR ---
Subjective Remarks liquid stool mild nausea mayur liquids Objective Vitals heart reg lung cta abd bs/nd/surgical incisions x 6 ext no edema Vital Signs Date Time Temp Pulse Resp B/P (MAP) Pulse Ox O2 Delivery O2 Flow Rate FiO2 04/25/17 09:01 18 04/25/17 08:00 96.1 81 18 119/66 (83) 97 04/25/17 02:00 95 21 04/25/17 00:00 96.4 82 20 103/56 (72) 95 04/24/17 20:00 96.2 99 20 126/76 (93) 95 04/24/17 16:00 97.8 98 20 135/66 (89) 99 04/24/17 15:09 18 04/24/17 13:53 96 04/24/17 13:24 18 04/24/17 11:45 97.0 88 14 109/61 (77) 96 04/25/17 04/25/17 04/26/17 15:00 23:00 07:00 Intake Total 1000 ml Balance 1000 ml IV Total 1000 ml Result Diagram: 04/21/17 1000 Imaging Last Impressions Abdomen X-Ray 04/19/17 0000 Signed Impressions: Service Date/Time: Wednesday, April 19, 2017 16:27 - CONCLUSION: 1. No evidence of obstruction. Nagi Baltazar MD Upper GI Series 04/17/17 0000 Signed Impressions: Service Date/Time: Monday, April 17, 2017 12:48 - CONCLUSION: Mild gastroesophageal reflux. Otherwise unremarkable double contrast upper GI series. 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 No significant mesenteric stenotic disease. Harshil Hilton MD A/P Problem List: (1) Nonspecific abdominal pain ICD Codes: R10.9 - Unspecified abdominal pain Plan: - Pt is a 51 yo WF with IDDM, HTN and GERD who was admitted to [facility] on with complaints of upper abd pain, primarily LUQ and diarrhea. The abd pain has been constant for 6 weeks, associated with nausea and is worse after eating. She has had occasional vomiting, loose stools, and 12 lb weight loss. - Pt had an outpt evaluation with GI for the above complaints and had a CT Abd/ pelvis which was negative and was given Reglan without improvement. - Pt was then admitted to [facility] in 03/2017 with these same complaints and again had a negative CT scan without evidence of obstruction. She had NGT placed and bowel rest. SBFT was negative as well. She was sent home on EES but presented back to GI with continued issues with abd pain, diarrhea, N/V. - Pt was admitted to [facility] for further workup on 04/13. - Pt underwent EGD/colonoscopy (04/14) with Dr. Luciano --> gastritis, esophagitis (?julia esophagitis), hiatal hernia, poor prep, small internal hemorrhoids. Pathology consistent with chemical gastropathy, moderate to severe acute suppurative esophagitis (fungal stain is negative and viral inclusions are not observed), biopsy from descending colon with features suggestive of collagenous colitis. - GI has signed off - CTA (04/13) --> showed moderate compression of celiac artery by arcuate ligament. - General Surgery is following. - Pt underwent division of median arcuate ligament today with Dr. Soares and Dr. 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 No upper abdominal adhesions. - NGT out and pt tolerating liquids. advance to soft per GS - Massey cath removed on 04/24 - Pain control PRN - Encourage OOB - PT and ambulation. (2) Diarrhea ICD Codes: R19.7 - Diarrhea, unspecified Plan: - Stool were negative for C diff - Stool studies for Cryptosporidium and Giardia are negative - Colonoscopy with pathology in descending colon with features of collagenous colitis (3) Abdominal bloating ICD Codes: R14.0 - Abdominal distension (gaseous) Plan: - As above (4) Hypertension ICD Codes: I10 - Hypertension Status: Chronic Plan: - Stable off coreg (5) Type 2 diabetes mellitus with diabetic neuropathy ICD Codes: E11.40 - Type 2 diabetes mellitus with diabetic neuropathy, unspecified Plan: - Novolog sliding scale - Accu checks Problem Qualifiers (1) Diarrhea: Qualified Codes: R19.7 - Diarrhea, unspecified (2) Type 2 diabetes mellitus with diabetic neuropathy: Qualified Codes: E11.40 - Type 2 diabetes mellitus with diabetic neuropathy, unspecified Angel Luis Mccracken MD Apr 25, 2017 10:59
[2017-04-25] MEDS: ONDANSETRON HCL 4 MG/2 ML VIAL IV PUSH PRN (16:53)
[2017-04-25] MEDS: SCOPOLAMINE 1.5 MG PATCH T-DERMAL SCH (20:28)
[2017-04-26 00:18] VITALS: BP 117/60; PULSE 82; RESP 18; TEMP 97.1; O2SAT 95
[2017-04-26] MEDS: PROMETHAZINE HCL 25 MG TAB PO SCH ×4 (01:19→20:09)
[2017-04-26] MEDS: ACETAMINOPHEN/HYDROcodone 325 MG/5 MG TAB PO PRN ×4 (01:20→16:49)
[2017-04-26] MEDS: MEDIUM DOSE INSULIN NOVOLOG SUPPLEMENTAL SCALE SQ SCH ×3 (05:47→16:59)
[2017-04-26 08:00] VITALS: BP 122/69; PULSE 71; RESP 18; TEMP 96.2; O2SAT 98
[2017-04-26] MEDS: SODIUM CHLORIDE 0.9% FLUSH 10 ML FLUSH IV FLUSH SCH ×2 (09:00→20:09)
[2017-04-26] MEDS: DULoxetine HCl DR 60 MG CAP PO SCH (09:09)
[2017-04-26] MEDS: LACTOBACILLUS ACIDOPHILUS TAB PO SCH ×2 (09:09→20:09)
[2017-04-26] MEDS: PREGABALIN 75 MG CAP PO SCH ×3 (09:10→16:49)
[2017-04-26] MEDS: LIPASE/PROTEASE/AMYLASE (6,000/19,000/30,000) CAP PO SCH ×3 (09:10→16:49)
[2017-04-26] MEDS: RIFAXIMIN 550 MG TAB PO SCH ×2 (09:10→20:09)
[2017-04-26] MEDS: PANTOPRAZOLE SODIUM 40 MG VIAL IV PUSH SCH ×2 (09:11→20:09)
--- NOTE | 2017-04-26 11:06 | HHI.PR ---
Subjective Remarks Pt reports that she has had two loose BMs this morning and has increased nausea No vomiting No melena or BRBPR She feels more bloated and painful today Objective Vitals Vital Signs Date Time Temp Pulse Resp B/P (MAP) Pulse Ox O2 Delivery O2 Flow Rate FiO2 04/26/17 08:00 96.2 71 18 122/69 (86) 98 04/26/17 00:18 97.1 82 18 117/60 (79) 95 04/25/17 20:54 99 21 04/25/17 20:52 96.4 86 18 117/65 (82) 99 04/25/17 18:28 18 04/25/17 16:00 96.2 81 18 97/53 (68) 95 04/25/17 15:19 18 04/25/17 14:37 18 04/25/17 12:00 96.4 77 18 114/64 (81) 99 Imaging Last Impressions Abdomen X-Ray 04/19/17 0000 Signed Impressions: Service Date/Time: Wednesday, April 19, 2017 16:27 - CONCLUSION: 1. No evidence of obstruction. Nagi Baltazar MD Upper GI Series 04/17/17 0000 Signed Impressions: Service Date/Time: Monday, April 17, 2017 12:48 - CONCLUSION: Mild gastroesophageal reflux. Otherwise unremarkable double contrast upper GI series. 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 No significant mesenteric stenotic disease. Harshil Hilton MD Objective Remarks General: NAD, AAOx3 Chest: CTA Cardiac: Regular Abd: +BS, mildly distended, upper and left sided tenderness, no guarding or rebound, incisions are c/d/i Ext: No edema A/P Problem List: (1) Nonspecific abdominal pain ICD Codes: R10.9 - Unspecified abdominal pain Plan: - Pt is a 51 yo WF with IDDM, HTN and GERD who was admitted to [facility] [place] on with complaints of upper abd pain, primarily LUQ and diarrhea. The abd pain has been constant for 6 weeks, associated with nausea and is worse after eating. She has had occasional vomiting, loose stools, and 12 lb weight loss. - Pt had an outpt evaluation with GI for the above complaints and had a CT Abd/ pelvis which was negative and was given Reglan without improvement. - Pt was then admitted to [facility] in 03/2017 with these same complaints and again had a negative CT scan without evidence of obstruction. She had NGT placed and bowel rest. SBFT was negative as well. She was sent home on EES but presented back to GI with continued issues with abd pain, diarrhea, N/V. - Pt was admitted to [facility] for further workup on 04/13. - Pt underwent EGD/colonoscopy (04/14) with Dr. Luciano --> gastritis, esophagitis (?julia esophagitis), hiatal hernia, poor prep, small internal hemorrhoids. Pathology consistent with chemical gastropathy, moderate to severe acute suppurative esophagitis (fungal stain is negative and viral inclusions are not observed), biopsy from descending colon with features suggestive of collagenous colitis. - GI has signed off - CTA (04/13) --> showed moderate compression of celiac artery by arcuate ligament. - General Surgery is following. - Pt underwent division of median arcuate ligament today with Dr. Soares and Dr. 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 No upper abdominal adhesions. - NGT out and pt tolerating liquids. Diet was advanced to soft per GS on 04/25 but pt having more abd bloating/discomfort and nausea on 04/26 - Check KUB on 04/26 - Instructed pt to eat more full liquids today until we get KUB - Antiemetics PRN - Pain control PRN - Encourage OOB - PT and ambulation. (2) Diarrhea ICD Codes: R19.7 - Diarrhea, unspecified Plan: - Stool were negative for C diff - Stool studies for Cryptosporidium and Giardia are negative - Colonoscopy with pathology in descending colon with features of collagenous colitis - Pt with diarrhea x 2 days, recheck for C. diff if negative and diarrhea persists we will reconsult GI for recommendations regarding the collagenous colitis (3) Abdominal bloating ICD Codes: R14.0 - Abdominal distension (gaseous) Plan: - As above (4) Hypertension ICD Codes: I10 - Hypertension Status: Chronic Plan: - Stable off coreg (5) Type 2 diabetes mellitus with diabetic neuropathy ICD Codes: E11.40 - Type 2 diabetes mellitus with diabetic neuropathy, unspecified Plan: - Novolog sliding scale - Accu checks Assessment and Plan Patient examined. Assessment and plan formulated with Savanna Hemphill PA-C. I agree with the above. s/p median arcuate ligament surgery. pt still with diarrhea stool studies to exclude infecious diarrhea. collagenous colitis on bx. check with GI if rx should begin. ambulate. supportive care. Problem Qualifiers (1) Diarrhea: Qualified Codes: R19.7 - Diarrhea, unspecified (2) Type 2 diabetes mellitus with diabetic neuropathy: Qualified Codes: E11.40 - Type 2 diabetes mellitus with diabetic neuropathy, unspecified Savanna Hemphill Apr 26, 2017 11:06 Angel Luis Mccracken MD Apr 26, 2017 12:57
[2017-04-26 12:00] VITALS: BP 129/76; PULSE 88; RESP 16; TEMP 97.2; O2SAT 95
[2017-04-26] MEDS: HYDROmorphone HCL PF 0.5 MG/0.5 ML SYRINGE IV PUSH PRN ×2 (12:57→20:16)
--- NOTE | 2017-04-26 13:16 | HHI.GIFU ---
Subjective Remarks GI reconsulted for collagenous colitis noted on colonic mucosal biopsy. Patient continues to have diarrhea. Reports diffuse abdominal pain and bloating. (Stephanie Ayala) Objective Vitals I&O Vital Signs Date Time Temp Pulse Resp B/P (MAP) Pulse Ox O2 Delivery O2 Flow Rate FiO2 04/26/17 10:10 20 04/26/17 10:10 20 04/26/17 08:00 96.2 71 18 122/69 (86) 98 04/26/17 00:18 97.1 82 18 117/60 (79) 95 04/25/17 20:54 99 21 04/25/17 20:52 96.4 86 18 117/65 (82) 99 04/25/17 16:00 96.2 81 18 97/53 (68) 95 04/25/17 15:19 18 I/O 04/25/17 04/25/17 04/25/17 04/26/17 04/26/17 04/26/17 07:00 15:00 23:00 07:00 15:00 23:00 Intake Total 320 ml 1600 ml 1000 ml Output Total 400 ml 500 ml Balance -80 ml 1600 ml 1000 ml -500 ml Intake Oral 320 ml 600 ml IV Total 1000 ml 1000 ml Output Urine Total 400 ml 500 ml # Voids 1 3 # Bowel Movements 1 0 Laboratory Date/Time Source Procedure Growth Status 04/16/17 15:55 Stool Stool Cryptosporidium Exam - Final NEGATIVE - NO CRYPTOSPORIDIUM ANTIGEN... Complete 04/16/17 15:55 Stool Stool Giardia Antigen (SAJI) - Final NEGATIVE - NO GIARDIA ANTIGEN DETECTE... Complete Imaging Last Impressions Abdomen X-Ray 04/19/17 0000 Signed Impressions: Service Date/Time: Wednesday, April 19, 2017 16:27 - CONCLUSION: 1. No evidence of obstruction. Nagi Baltazar MD Upper GI Series 04/17/17 0000 Signed Impressions: Service Date/Time: Monday, April 17, 2017 12:48 - CONCLUSION: Mild gastroesophageal reflux. Otherwise unremarkable double contrast upper GI series. 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 No significant mesenteric stenotic disease. Harshil Hilton MD Physical Exam HEENT: Normocephalic; atraumatic; no jaundice. NECK: Neck is supple CHEST: CTA CARDIAC: RRR with no murmur gallop or rubs. ABDOMEN: Soft, distended abdomen, mild diffuse tenderness; no hepatosplenomegaly; bowel sounds are present in all four quadrants. EXTREMITIES: No clubbing, cyanosis, or edema. SKIN: Normal; no rash; no jaundice. SOURCING INTERN: No focal deficits; alert and oriented times three. (Stephanie Ayala) Assessment and Plan Plan ASSESSMENT: - Abdominal pain/diarrhea. EGD/colonoscopy (04/14) with Dr. Luciano--gastritis, esophagitis (?julia esophagitis), hiatal hernia, poor prep, small internal hemorrhoids. Pathology consistent with chemical gastropathy, moderate to severe acute suppurative esophagitis (fungal stain is negative and viral inclusions are not observed), biopsy from descending colon with features suggestive of collagenous colitis. Continues to have loose stools. Stool studies negative PLAN: - Start Prednisone 20 mg daily - Start Budesonide 9mg PO daily at discharge - Diabetic diet - Monitor labs - Supportive care - Followup with GI as outpatient Patient seen and examined by Dr. Krishnamurthy and myself and this note is written on his behalf. (Stephanie Ayala) Physician Comments Patient seen and examined Agree with above Continue with current supportive care Monitor labs Prednisone for now because of its quicker action Most likely will pursue budesonide treatment on discharge for 8 weeks (Salas Krishnamurthy MD) Stephanie Ayala Apr 26, 2017 13:16 Salas Krishnamurthy MD Apr 26, 2017 14:17
[2017-04-26 16:00] VITALS: BP 121/75; PULSE 99; RESP 17; TEMP 95.5; O2SAT 96
[2017-04-26] MEDS: 1/2 NS + KCL 20 MEQ INJ 1,000 ML IV SCH (16:51)
--- NOTE | 2017-04-26 18:07 | RADRPT ---
EXAM DATE/TIME: 04/26/2017 17:45 [place] COMPARISON: ABDOMEN SINGLE VIEW, April 19, 2017, 16:27. ABDOMEN KUB ONLY, March 31, 2017, 9:15. INDICATIONS : Abdominal pain, diarrhea, vomitting. MEDICAL HISTORY : Hypertension. Diabetes mellitus type 2. Pancreatitis.Hiatal hernia. SURGICAL HISTORY : Cholecystectomy. ENCOUNTER: Initial ACUITY: 2 weeks PAIN SCORE: 5/10 LOCATION: Bilateral abdomen. FINDINGS: 3 supine frontal views of the abdomen show a grossly dilated stomach is gas-filled. This is a new fin ding. Gas-filled loops of mildly distended small bowel scattered throughout the abdomen. Barium is se en throughout normal caliber colon reaching the level of the rectal vault. Surgical clips in the righ t upper quadrant. No organomegaly observed. Renal contours are obscured. CONCLUSION: Grossly distended stomach with mildly distended gas-filled small bowel. Colon is normal in caliber. T his is a nonspecific pattern. I cannot exclude gastric outlet obstruction Hung Crane Jr., MD on April 26, 2017 at 18:04 Board Certified Radiologist. This report was verified electronically.
[2017-04-26 20:00] VITALS: BP 155/89; PULSE 93; RESP 16; TEMP 97.4; O2SAT 94
--- NOTE | 2017-04-26 21:06 | HHI.PR ---
Subjective Subjective Notes c/o diarrhea nausea pos abd pain Objective Vitals/I&O Vital Signs Date Time Temp Pulse Resp B/P (MAP) Pulse Ox O2 Delivery O2 Flow Rate FiO2 04/26/17 16:00 95.5 99 17 121/75 (90) 96 04/25/17 20:54 21 04/22/17 19:56 Nasal Cannula 2 Labs Date/Time Source Procedure Growth Status 04/16/17 15:55 Stool Stool Cryptosporidium Exam - Final NEGATIVE - NO CRYPTOSPORIDIUM ANTIGEN... Complete 04/16/17 15:55 Stool Stool Giardia Antigen (SAJI) - Final NEGATIVE - NO GIARDIA ANTIGEN DETECTE... 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 No significant mesenteric stenotic disease. Harshil Hilton MD Abdomen: Post-op tenderness Narrative Exam mild distension Wound Wound : Wound Location: Abdomen Appearance: Clean & Dry A/P Assessment and Plan s/p accurate ligament release tolerating diet stool cx sent oob ambulate González Kathleen MD Apr 26, 2017 21:06
[2017-04-26] MEDS ORDERED: METOCLOPRAMIDE HCL 10 MG/2 ML VIAL IV PUSH SCH (22:00)
[2017-04-26 22:23] LABS: C. DIFF EPI 027 PRESUMPTIVE NEGATIVE (NEGATIVE)
[2017-04-27] VITALS (7 sets, daily range): BP systolic 125–141; BP diastolic 70–90; PULSE 77–91; RESP 16–18; TEMP 96.3–96.8; O2SAT 95–98
[2017-04-27] MEDS: PROMETHAZINE HCL 25 MG TAB PO SCH ×4 (00:05→18:53)
[2017-04-27] MEDS: ACETAMINOPHEN/HYDROcodone 325 MG/5 MG TAB PO PRN ×4 (00:06→14:51)
[2017-04-27] MEDS: MEDIUM DOSE INSULIN NOVOLOG SUPPLEMENTAL SCALE SQ SCH ×4 (00:06→18:00)
[2017-04-27] MEDS: HYDROmorphone HCL PF 0.5 MG/0.5 ML SYRINGE IV PUSH PRN ×2 (02:29→12:36)
[2017-04-27] MEDS: 1/2 NS + KCL 20 MEQ INJ 1,000 ML IV SCH ×3 (04:24→21:29)
[2017-04-27 07:30] LABS: AUTOMATED NEUTROPHIL # 4.6 TH/MM3 (1.8-7.7); BASOPHIL % 0.5 % (0.0-2.0); EOSINOPHIL # 0.4 TH/MM3 (0-0.4); EOSINOPHIL % 5.5 % (0.0-4.0); HEMATOCRIT 36.6 % (35.0-46.0); HEMO FLAGS DIFF FINAL; LYMPH % 29.8 % (9.0-44.0); LYMPHOCYTE # 2.4 TH/MM3 (1.0-4.8); MEAN CELL VOLUME 86.6 FL (80.0-100.0); MEAN CORPUSCULAR HEMOGLOBIN 29.1 PG (27.0-34.0); MEAN CORPUSCULAR HGB CONC 33.6 % (32.0-36.0); MONO % 7.5 % (0.0-8.0); NEUT % 56.7 % (16.0-70.0); PLATELET COUNT 231 TH/MM3 (150-450); RED BLOOD COUNT 4.22 MIL/MM3 (4.00-5.30)
[2017-04-27 07:51] LABS: BICARBONATE 25.2 MEQ/L (21.0-32.0); MAGNESIUM 1.7 MG/DL (1.5-2.5); POTASSIUM 3.8 MEQ/L (3.5-5.1)
--- NOTE | 2017-04-27 08:35 | HHI.PR ---
Subjective Remarks Pt reports that she is still feeling quite bloating Last night she had nausea after eating but no vomiting Pt had a total of 4 loose BMs yesterday Objective Vitals Vital Signs Date Time Temp Pulse Resp B/P (MAP) Pulse Ox O2 Delivery O2 Flow Rate FiO2 04/27/17 00:22 96.8 85 16 128/74 (92) 97 04/26/17 20:13 21 04/26/17 20:00 97.4 93 16 155/89 (111) 94 04/26/17 16:00 95.5 99 17 121/75 (90) 96 04/26/17 13:37 20 04/26/17 13:37 20 04/26/17 12:00 97.2 88 16 129/76 (93) 95 04/26/17 10:10 20 Result Diagram: 04/27/17 0625 04/27/17 06 Other Results Laboratory Tests Test 04/26/17 21:00 04/27/17 06:25 Stool C. difficile Toxin (PCR) NEGATIVE Stl C. difficile Toxin Epiderm 027 PRESUMPTIVE NEGATIVE White Blood Count 8.0 TH/MM3 Red Blood Count 4.22 MIL/MM3 Hemoglobin 12.3 GM/DL Hematocrit 36.6 % Mean Corpuscular Volume 86.6 FL Mean Corpuscular Hemoglobin 29.1 PG Mean Corpuscular Hemoglobin Concent 33.6 % Red Cell Distribution Width 13.0 % Platelet Count 231 TH/MM3 Mean Platelet Volume 7.6 FL Neutrophils (%) (Auto) 56.7 % Lymphocytes (%) (Auto) 29.8 % Monocytes (%) (Auto) 7.5 % Eosinophils (%) (Auto) 5.5 % Basophils (%) (Auto) 0.5 % Neutrophils # (Auto) 4.6 TH/MM3 Lymphocytes # (Auto) 2.4 TH/MM3 Monocytes # (Auto) 0.6 TH/MM3 Eosinophils # (Auto) 0.4 TH/MM3 Basophils # (Auto) 0.0 TH/MM3 CBC Comment DIFF FINAL Differential Comment Blood Urea Nitrogen 6 MG/DL Creatinine 0.58 MG/DL Random Glucose 161 MG/DL Calcium Level 8.2 MG/DL Magnesium Level 1.7 MG/DL Sodium Level 139 MEQ/L Potassium Level 3.8 MEQ/L Chloride Level 106 MEQ/L Carbon Dioxide Level 25.2 MEQ/L Anion Gap 8 MEQ/L Estimat Glomerular Filtration Rate 110 ML/MIN Imaging Last Impressions Abdomen X-Ray 04/26/17 0000 Signed Impressions: Service Date/Time: Wednesday, April 26, 2017 17:45 - CONCLUSION: Grossly distended stomach with mildly distended gas-filled small bowel. Colon is normal in caliber. This is a nonspecific pattern. I cannot exclude gastric outlet obstruction Hung Crane Jr., MD Upper GI Series 04/17/17 0000 Signed Impressions: Service Date/Time: Monday, April 17, 2017 12:48 - CONCLUSION: Mild gastroesophageal reflux. Otherwise unremarkable double contrast upper GI series. 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 No significant mesenteric stenotic disease. Harshil Hilton MD Last Impressions Abdomen X-Ray 04/19/17 0000 Signed Impressions: Service Date/Time: Wednesday, April 19, 2017 16:27 - CONCLUSION: 1. No evidence of obstruction. Nagi Baltazar MD Upper GI Series 04/17/17 0000 Signed Impressions: Service Date/Time: Monday, April 17, 2017 12:48 - CONCLUSION: Mild gastroesophageal reflux. Otherwise unremarkable double contrast upper GI series. 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 No significant mesenteric stenotic disease. Harshil Hilton MD Objective Remarks General: NAD, AAOx3 Chest: CTA Cardiac: Regular Abd: +BS, mildly distended in the upper abdomen, upper and left sided tenderness , no guarding or rebound, incisions are c/d/i Ext: No edema A/P Problem List: (1) Nonspecific abdominal pain ICD Codes: R10.9 - Unspecified abdominal pain Plan: - Pt is a 51 yo WF with IDDM, HTN and GERD who was admitted to [facility] on with complaints of upper abd pain, primarily LUQ and diarrhea. The abd pain has been constant for 6 weeks, associated with nausea and is worse after eating. She has had occasional vomiting, loose stools, and 12 lb weight loss. - Pt had an outpt evaluation with GI for the above complaints and had a CT Abd/ pelvis which was negative and was given Reglan without improvement. - Pt was then admitted to [facility] in 03/2017 with these same complaints and again had a negative CT scan without evidence of obstruction. She had NGT placed and bowel rest. SBFT was negative as well. She was sent home on EES but presented back to GI with continued issues with abd pain, diarrhea, N/V. - Pt was admitted to [facility] for further workup on 04/13. - Pt underwent EGD/colonoscopy (04/14) with Dr. Luciano --> gastritis, esophagitis (?julia esophagitis), hiatal hernia, poor prep, small internal hemorrhoids. Pathology consistent with chemical gastropathy, moderate to severe acute suppurative esophagitis (fungal stain is negative and viral inclusions are not observed), biopsy from descending colon with features suggestive of collagenous colitis. - CTA (04/13) --> showed moderate compression of celiac artery by arcuate ligament. - General Surgery is following. - Pt underwent division of median arcuate ligament today with Dr. Soares and Dr. 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 No upper abdominal adhesions. - NGT out and pt tolerating liquids. Diet was advanced to soft per GS on 04/25 but pt having more abd bloating/discomfort and nausea on 04/26 - KUB on 04/26 -->Grossly distended stomach with mildly distended gas-filled small bowel. Colon is normal in caliber. This is a nonspecific pattern. - Instructed pt to eat more full liquids today - Start Simethicone 125mg Q8H - Pt may have some degree of gastroparesis contributing to her symptoms but in light on her recent surgery and narcotic use it is difficult to accurately test for this. Pt had previously been tried on Reglan and EES without much relief. - Antiemetics PRN - Pain control PRN - Encourage OOB - PT and ambulation. (2) Diarrhea ICD Codes: R19.7 - Diarrhea, unspecified Plan: - Stool were negative for C diff on 04/13 and 04/26 - Stool studies for Cryptosporidium and Giardia are negative - Colonoscopy with pathology in descending colon with features of collagenous colitis - Pt with diarrhea again - GI reconsulted - Pt to be started on Prednisone and is planned to be switched to Budesonide at discharge. (3) Abdominal bloating ICD Codes: R14.0 - Abdominal distension (gaseous) Plan: - As above (4) Hypertension ICD Codes: I10 - Hypertension Status: Chronic Plan: - Stable off coreg (5) Type 2 diabetes mellitus with diabetic neuropathy ICD Codes: E11.40 - Type 2 diabetes mellitus with diabetic neuropathy, unspecified Plan: - Novolog sliding scale - Accu checks Assessment and Plan Patient examined. Assessment and plan formulated with Savanna Hemphill PA-C. I agree with the above. Problem Qualifiers (1) Diarrhea: Qualified Codes: R19.7 - Diarrhea, unspecified (2) Type 2 diabetes mellitus with diabetic neuropathy: Qualified Codes: E11.40 - Type 2 diabetes mellitus with diabetic neuropathy, unspecified Savanna Hemphill Apr 27, 2017 08:35 Tyson Sapp DO Apr 29, 2017 19:47
[2017-04-27] MEDS: LACTOBACILLUS ACIDOPHILUS TAB PO SCH ×2 (08:47→21:22)
[2017-04-27] MEDS: predniSONE 20 MG TAB PO SCH (08:47)
[2017-04-27] MEDS: PREGABALIN 75 MG CAP PO SCH ×3 (08:47→18:53)
[2017-04-27] MEDS: DULoxetine HCl DR 60 MG CAP PO SCH (08:47)
[2017-04-27] MEDS: LIPASE/PROTEASE/AMYLASE (6,000/19,000/30,000) CAP PO SCH ×3 (08:47→18:53)
[2017-04-27] MEDS: PANTOPRAZOLE SODIUM 40 MG VIAL IV PUSH SCH ×2 (08:47→21:22)
[2017-04-27] MEDS: RIFAXIMIN 550 MG TAB PO SCH ×2 (08:47→21:22)
[2017-04-27] MEDS: SODIUM CHLORIDE 0.9% FLUSH 10 ML FLUSH IV FLUSH SCH ×2 (08:48→21:29)
--- NOTE | 2017-04-27 15:40 | HHI.GIFU ---
Subjective Remarks Resting in bed. States she has nausea, no vomiting. C/O bloating. Diarrhea improving, had last night, but none so far today. (Radha Levine) Objective Vitals I&O Vital Signs Date Time Temp Pulse Resp B/P (MAP) Pulse Ox O2 Delivery O2 Flow Rate FiO2 04/27/17 12:00 96.3 78 16 125/72 (89) 95 04/27/17 09:39 98 04/27/17 08:00 96.4 91 16 132/70 (90) 98 04/27/17 00:22 96.8 85 16 128/74 (92) 97 04/26/17 20:13 21 04/26/17 20:00 97.4 93 16 155/89 (111) 94 04/26/17 16:00 95.5 99 17 121/75 (90) 96 I/O 04/26/17 04/26/17 04/26/17 04/27/17 04/27/17 04/27/17 07:00 15:00 23:00 07:00 15:00 23:00 Intake Total 1240 ml 1000 ml Output Total 500 ml 1400 ml 2300 ml Balance -500 ml -160 ml -1300 ml Intake Oral 240 ml IV Total 1000 ml 1000 ml Output Urine Total 500 ml 1400 ml 2300 ml # Bowel Movements 0 Laboratory Laboratory Tests Test 04/26/17 21:00 04/27/17 06:25 Stool C. difficile Toxin (PCR) NEGATIVE Stl C. difficile Toxin Epiderm 027 PRESUMPTIVE NEGATIVE White Blood Count 8.0 Red Blood Count 4.22 Hemoglobin 12.3 Hematocrit 36.6 Mean Corpuscular Volume 86.6 Mean Corpuscular Hemoglobin 29.1 Mean Corpuscular Hemoglobin Concent 33.6 Red Cell Distribution Width 13.0 Platelet Count 231 Mean Platelet Volume 7.6 Neutrophils (%) (Auto) 56.7 Lymphocytes (%) (Auto) 29.8 Monocytes (%) (Auto) 7.5 Eosinophils (%) (Auto) 5.5 Basophils (%) (Auto) 0.5 Neutrophils # (Auto) 4.6 Lymphocytes # (Auto) 2.4 Monocytes # (Auto) 0.6 Eosinophils # (Auto) 0.4 Basophils # (Auto) 0.0 CBC Comment DIFF FINAL Differential Comment Blood Urea Nitrogen 6 Creatinine 0.58 Random Glucose 161 Calcium Level 8.2 Magnesium Level 1.7 Sodium Level 139 Potassium Level 3.8 Chloride Level 106 Carbon Dioxide Level 25.2 Anion Gap 8 Estimat Glomerular Filtration Rate 110 Date/Time Source Procedure Growth Status 04/16/17 15:55 Stool Stool Cryptosporidium Exam - Final NEGATIVE - NO CRYPTOSPORIDIUM ANTIGEN... Complete 04/16/17 15:55 Stool Stool Giardia Antigen (SAJI) - Final NEGATIVE - NO GIARDIA ANTIGEN DETECTE... Complete Imaging Last Impressions Abdomen X-Ray 04/26/17 0000 Signed Impressions: Service Date/Time: Wednesday, April 26, 2017 17:45 - CONCLUSION: Grossly distended stomach with mildly distended gas-filled small bowel. Colon is normal in caliber. This is a nonspecific pattern. I cannot exclude gastric outlet obstruction Hung Crane Jr., MD Upper GI Series 04/17/17 0000 Signed Impressions: Service Date/Time: Monday, April 17, 2017 12:48 - CONCLUSION: Mild gastroesophageal reflux. Otherwise unremarkable double contrast upper GI series. 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 No significant mesenteric stenotic disease. Harshil Hilton MD Physical Exam HEENT: Normocephalic; atraumatic; no jaundice. NECK: Neck is supple CHEST: CTA CARDIAC: RRR with no murmur gallop or rubs. ABDOMEN: Soft, distended upper abdomen, mild tenderness upper abdomen; no hepatosplenomegaly; bowel sounds are present in all four quadrants. EXTREMITIES: No clubbing, cyanosis, or edema. SKIN: Normal; no rash; no jaundice. VICE CHAIR: No focal deficits; alert and oriented times three. (Radha Levine [facility]) Assessment and Plan Plan ASSESSMENT: - Abdominal pain/bloating/nausea. Pt with persistent abdominal pain, bloating, nausea associated with food intake. She was previously treated with reglan/EES without any improvement. CTA noted moderate compression of celiac artery by arcuate ligament. EGD/ colonoscopy (04/14) with Dr. Luciano--gastritis, esophagitis (?julia esophagitis ), hiatal hernia, poor prep, small internal hemorrhoids. Pathology consistent with chemical gastropathy, moderate to severe acute suppurative esophagitis (fungal stain is negative and viral inclusions are not observed), biopsy from descending colon with features suggestive of collagenous colitis. Continues to have loose stools. Stool studies negative. S/P Division of median arcuate ligament (04/22/17), continues to have the same symptoms. Her upper abdomen is distended and tender on exam and she complains of abdominal pain. KUB (04/26/17)---> Grossly distended stomach with mildly distended gas-filled small bowel. Colon is normal in caliber. This is a nonspecific pattern. She remains bloated, tender in upper abdomen, and continues to have nausea. ?Gastroparesis. Will place NGT to LIWS. Trial of reglan. Rpt. KUB in am. - Diarrhea/Collagenous colitis. Colonoscopy as above. Started on prednisone, seems to be doing with this, no diarrhea since last night. Plan will be for Entocort at discharged. - HTN, DM per attending. PLAN: - NPO - NGT to LIWS - Trial of EES - Prednisone 20 mg daily (transition to Budesonide 9mg PO daily at discharge) - Monitor labs - Supportive care - Followup with GI as outpatient - Pt seen and examined by Dr. Ortega and myself and this note is written on his behalf (Radha Levine) Physician Comments Patient was seen and examined, agree with above-noted, had a discussion with primary team patient, we will start her on erythromycin, will put NG tub. Patient was instructed to avoid narcotics (Bennie Ortega MD) Radha Levine Apr 27, 2017 15:40 Bennie Ortega MD Apr 27, 2017 15:48
[2017-04-27] MEDS: ERYTHROMYCIN ETHYLSUCCINATE 200 MG/5 ML SUSP 100 ML BOTTLE PO SCH (16:00)
--- NOTE | 2017-04-27 16:03 | HHI.PR ---
Subjective Subjective Notes She is still feeling bloated and having nausea. KUB from last night showed massive distention of her stomach and NGT has been ordered. She did have residual contrast in her colon apparently from UGI over a week ago. + flatus. Objective Vitals/I&O Vital Signs Date Time Temp Pulse Resp B/P (MAP) Pulse Ox O2 Delivery O2 Flow Rate FiO2 04/27/17 12:00 96.3 78 16 125/72 (89) 95 04/26/17 20:13 21 Labs Laboratory Tests Test 04/26/17 21:00 04/27/17 06:25 Stool C. difficile Toxin (PCR) NEGATIVE Stl C. difficile Toxin Epiderm 027 PRESUMPTIVE NEGATIVE White Blood Count 8.0 Red Blood Count 4.22 Hemoglobin 12.3 Hematocrit 36.6 Mean Corpuscular Volume 86.6 Mean Corpuscular Hemoglobin 29.1 Mean Corpuscular Hemoglobin Concent 33.6 Red Cell Distribution Width 13.0 Platelet Count 231 Mean Platelet Volume 7.6 Neutrophils (%) (Auto) 56.7 Lymphocytes (%) (Auto) 29.8 Monocytes (%) (Auto) 7.5 Eosinophils (%) (Auto) 5.5 Basophils (%) (Auto) 0.5 Neutrophils # (Auto) 4.6 Lymphocytes # (Auto) 2.4 Monocytes # (Auto) 0.6 Eosinophils # (Auto) 0.4 Basophils # (Auto) 0.0 CBC Comment DIFF FINAL Differential Comment Blood Urea Nitrogen 6 Creatinine 0.58 Random Glucose 161 Calcium Level 8.2 Magnesium Level 1.7 Sodium Level 139 Potassium Level 3.8 Chloride Level 106 Carbon Dioxide Level 25.2 Anion Gap 8 Estimat Glomerular Filtration Rate 110 Date/Time Source Procedure Growth Status 04/16/17 15:55 Stool Stool Cryptosporidium Exam - Final NEGATIVE - NO CRYPTOSPORIDIUM ANTIGEN... Complete 04/16/17 15:55 Stool Stool Giardia Antigen (SAJI) - Final NEGATIVE - NO GIARDIA ANTIGEN DETECTE... 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 No significant mesenteric stenotic disease. Harshil Hilton MD Narrative Exam NAD Abd soft, inc c/d/i, mod distention, tympanitic in upper abdomen A/P Assessment and Plan 51 yo F chronic upper abdominal pain worse x 6 weeks assoc with nausea and weight loss, POD 5 division of median arcuate ligament. ? gastroparesis contributing. Gastric distention. NG being placed and EES started. Continue current care. Give suppository. Limit narcotics. D/w Dr. Sapp. Ludwig Soares MD Apr 27, 2017 16:03
[2017-04-27] MEDS ORDERED: BISACODYL 10 MG SUPP RECTAL ONE (16:30)
[2017-04-27] MEDS: SIMETHICONE 125 MG CHEWABLE TAB PO SCH (18:53)
[2017-04-28] VITALS (7 sets, daily range): BP systolic 122–168; BP diastolic 56–89; PULSE 77–86; RESP 16–18; TEMP 96.8–98.5; O2SAT 94–98
[2017-04-28] MEDS: ERYTHROMYCIN ETHYLSUCCINATE 200 MG/5 ML SUSP 100 ML BOTTLE PO SCH
[2017-04-28] MEDS: SIMETHICONE 125 MG CHEWABLE TAB PO SCH ×3 (00:31→17:15)
[2017-04-28] MEDS: PROMETHAZINE HCL 25 MG TAB PO SCH ×4 (00:31→17:48)
[2017-04-28] MEDS: MEDIUM DOSE INSULIN NOVOLOG SUPPLEMENTAL SCALE SQ SCH ×5 (06:00→21:32)
[2017-04-28] MEDS: ACETAMINOPHEN/HYDROcodone 325 MG/5 MG TAB PO PRN ×2 (06:17→21:33)
[2017-04-28] MEDS: 1/2 NS + KCL 20 MEQ INJ 1,000 ML IV SCH (06:25)
[2017-04-28] MEDS: ERYTHROMYCIN ETHYLSUCCINATE 400 MG/5 ML SUSP 100 ML BOTTLE PO SCH ×2 (08:00→17:46)
[2017-04-28] MEDS: SODIUM CHLORIDE 0.9% FLUSH 10 ML FLUSH IV FLUSH SCH ×2 (09:00→21:00)
[2017-04-28] MEDS: LIPASE/PROTEASE/AMYLASE (6,000/19,000/30,000) CAP PO SCH ×3 (09:00→17:15)
[2017-04-28] MEDS: LACTOBACILLUS ACIDOPHILUS TAB PO SCH ×2 (09:05→21:34)
[2017-04-28] MEDS: predniSONE 20 MG TAB PO SCH (09:05)
[2017-04-28] MEDS: RIFAXIMIN 550 MG TAB PO SCH ×2 (09:05→21:34)
[2017-04-28] MEDS: DULoxetine HCl DR 60 MG CAP PO SCH (09:05)
[2017-04-28] MEDS: PREGABALIN 75 MG CAP PO SCH ×2 (09:05→17:15)
[2017-04-28] MEDS: PANTOPRAZOLE SODIUM 40 MG VIAL IV PUSH SCH ×2 (09:09→21:33)
--- NOTE | 2017-04-28 09:51 | RADRPT ---
EXAM DATE/TIME: 04/28/2017 09:17 [place] COMPARISON: ABDOMEN KUB ONLY, April 26, 2017, 17:45. INDICATIONS : Abdominal distention. MEDICAL HISTORY : Hypertension. Diabetes mellitus type 2. Pancreatitis.Hiatal hernia. SURGICAL HISTORY : Cholecystectomy. Tubal ligation. section. ENCOUNTER: Subsequent ACUITY: 2 weeks PAIN SCORE: 6/10 LOCATION: Bilateral Abdomen FINDINGS: Overall appearance of the abdomen is very similar to prior examination with marked gaseous distention of the stomach. There is persistent barium throughout the colon including the appendix with some ba rium down to the rectum. No barium in loops of small bowel no distended loops of small bowel. The v isualized lower lungs are clear. CONCLUSION: Stable appearance to the abdomen when compared to 04/26/17. There is persistent marked gaseous diste ntion of the stomach. Hung Mason MD on April 28, 2017 at 9:48 Board Certified Radiologist. This report was verified electronically.
--- NOTE | 2017-04-28 10:00 | HHI.GIFU ---
Subjective Remarks Just got back from KUB. Did not tolerate the NGT being placed last night and states that she will have to be put under to have it placed. Had suppository last night, did pass stool. Continues to have upper abdomen distention and c/o more pain now that her pain meds are being cut down. D/W patient rationale for this. (Radha Levine) Objective Vitals I&O Vital Signs Date Time Temp Pulse Resp B/P (MAP) Pulse Ox O2 Delivery O2 Flow Rate FiO2 04/28/17 09:03 98 04/28/17 08:00 96.8 84 17 148/72 (97) 97 04/28/17 00:06 97.0 77 18 122/56 (78) 95 04/27/17 20:15 96.8 77 16 141/76 (97) 95 04/27/17 17:51 96 21 04/27/17 16:00 96.6 78 18 140/90 (107) 96 04/27/17 12:00 96.3 78 16 125/72 (89) 95 I/O 04/27/17 04/27/17 04/27/17 04/28/17 04/28/17 04/28/17 07:00 15:00 23:00 07:00 15:00 23:00 Intake Total 1000 ml 720 ml 1000 ml Output Total 2300 ml 2100 ml 1001 ml Balance -1300 ml -1380 ml -1 ml Intake Oral 720 ml IV Total 1000 ml 1000 ml Output Urine Total 2300 ml 2100 ml 1000 ml Stool Total 1 ml Laboratory Date/Time Source Procedure Growth Status 04/16/17 15:55 Stool Stool Cryptosporidium Exam - Final NEGATIVE - NO CRYPTOSPORIDIUM ANTIGEN... Complete 04/16/17 15:55 Stool Stool Giardia Antigen (SAJI) - Final NEGATIVE - NO GIARDIA ANTIGEN DETECTE... Complete Imaging Last Impressions Abdomen X-Ray 04/26/17 0000 Signed Impressions: Service Date/Time: Wednesday, April 26, 2017 17:45 - CONCLUSION: Grossly distended stomach with mildly distended gas-filled small bowel. Colon is normal in caliber. This is a nonspecific pattern. I cannot exclude gastric outlet obstruction Hung Crane Jr., MD Upper GI Series 04/17/17 0000 Signed Impressions: Service Date/Time: Monday, April 17, 2017 12:48 - CONCLUSION: Mild gastroesophageal reflux. Otherwise unremarkable double contrast upper GI series. 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 No significant mesenteric stenotic disease. Harshil Hilton MD Physical Exam HEENT: Normocephalic; atraumatic; no jaundice. NECK: Neck is supple CHEST: CTA CARDIAC: RRR with no murmur gallop or rubs. ABDOMEN: Soft, significantly distended upper abdomen, mild-moderate tenderness upper abdomen; no hepatosplenomegaly; bowel sounds are present in all four quadrants. EXTREMITIES: No clubbing, cyanosis, or edema. SKIN: Normal; no rash; no jaundice. 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 (Radha Levine) Assessment and Plan Plan ASSESSMENT: - Abdominal pain/bloating/nausea. Pt with persistent abdominal pain, bloating, nausea associated with food intake. She was previously treated with reglan/EES without any improvement. CTA noted moderate compression of celiac artery by arcuate ligament. EGD/colonoscopy (04/14) with Dr. Luciano--gastritis , esophagitis (?julia esophagitis), hiatal hernia, poor prep, small internal hemorrhoids. Pathology consistent with chemical gastropathy, moderate to severe acute suppurative esophagitis (fungal stain is negative and viral inclusions are not observed), biopsy from descending colon with features suggestive of collagenous colitis. Continues to have loose stools. Stool studies negative. S/P Division of median arcuate ligament (04/22/17), continues to have the same symptoms. KUB (04/26/17)---> Grossly distended stomach with mildly distended gas- filled small bowel. Colon is normal in caliber. This is a nonspecific pattern. Contrast from 04/17 still present in colon. S/P suppository, + BM. Today's KUB is pending, but she continues to have gastric distention and contrast in colon. No improvement with EES. States more pain since her pain meds were cut back. She did not tolerate the NGT and states that she will not be able to have this placed unless she is "knocked out." Of note, she does report that she has had botox injections in the past (few years ago) and did have some improvement with her symptoms. EES. Bethanechol. Will d/w Dr. Ortega. ? EGD with ngt placement, ? botox injections. - Diarrhea/Collagenous colitis. Colonoscopy as above. Started on prednisone, seems to be doing with this. Plan will be for Entocort at discharged. - HTN, DM per attending. PLAN: - NPO - Pt unable to tolerate NGT being placed and is refusing - Trial of Bethanechol - Trial of EES - Prednisone 20 mg daily (transition to Budesonide 9mg PO daily at discharge) - Will d/w Dr. Ortega. Further recommendations to follow - Pt seen and examined by Dr. Ortega and myself and this note is written on his behalf (Radha Levien) Plan agree with above note, plan for EGD with Botox today to see if this will help her symptom (Bennie Ortega MD) Radha Levine Apr 28, 2017 10:00 Bennie Ortega MD Apr 28, 2017 17:27
[2017-04-28] MEDS ORDERED: ONABOTULINUMTOXINA INJ 100 UNITS/VIAL SCH (12:30)
--- NOTE | 2017-04-28 13:55 | HHI.GIFU ---
Subjective Remarks EGD with BOTOX injection 100 IU. Injected into pylorus NG tube placed by anesthesia. There was fair amount of residual food in stomach. Objective Vitals I&O Vital Signs Date Time Temp Pulse Resp B/P (MAP) Pulse Ox O2 Delivery O2 Flow Rate FiO2 04/28/17 12:00 98.1 80 17 143/73 (96) 96 04/28/17 09:03 98 04/28/17 08:00 96.8 84 17 148/72 (97) 97 04/28/17 00:06 97.0 77 18 122/56 (78) 95 04/27/17 20:15 96.8 77 16 141/76 (97) 95 04/27/17 17:51 96 21 04/27/17 16:00 96.6 78 18 140/90 (107) 96 I/O 04/27/17 04/27/17 04/27/17 04/28/17 04/28/17 04/28/17 07:00 15:00 23:00 07:00 15:00 23:00 Intake Total 1000 ml 720 ml 1000 ml Output Total 2300 ml 2100 ml 1001 ml Balance -1300 ml -1380 ml -1 ml Intake Oral 720 ml IV Total 1000 ml 1000 ml Output Urine Total 2300 ml 2100 ml 1000 ml Stool Total 1 ml Laboratory Date/Time Source Procedure Growth Status 04/16/17 15:55 Stool Stool Cryptosporidium Exam - Final NEGATIVE - NO CRYPTOSPORIDIUM ANTIGEN... Complete 04/16/17 15:55 Stool Stool Giardia Antigen (SAJI) - Final NEGATIVE - NO GIARDIA ANTIGEN DETECTE... Complete Physical Exam HEENT: Normocephalic; atraumatic; no jaundice. NECK: Neck is supple CHEST: CTA CARDIAC: RRR with no murmur gallop or rubs. ABDOMEN: Soft, significantly distended upper abdomen, mild-moderate tenderness upper abdomen; no hepatosplenomegaly; bowel sounds are present in all four quadrants. EXTREMITIES: No clubbing, cyanosis, or edema. SKIN: Normal; no rash; no jaundice. 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 Assessment and Plan Plan ASSESSMENT: - Abdominal pain/bloating/nausea. Pt with persistent abdominal pain, bloating, nausea associated with food intake. She was previously treated with reglan/EES without any improvement. CTA noted moderate compression of celiac artery by arcuate ligament. EGD/colonoscopy (04/14) with Dr. Luciano--gastritis , esophagitis (?julia esophagitis), hiatal hernia, poor prep, small internal hemorrhoids. Pathology consistent with chemical gastropathy, moderate to severe acute suppurative esophagitis (fungal stain is negative and viral inclusions are not observed), biopsy from descending colon with features suggestive of collagenous colitis. Continues to have loose stools. Stool studies negative. S/P Division of median arcuate ligament (04/22/17), continues to have the same symptoms. KUB (04/26/17)---> Grossly distended stomach with mildly distended gas- filled small bowel. Colon is normal in caliber. This is a nonspecific pattern. Contrast from 04/17 still present in colon. S/P suppository, + BM. Today's KUB is pending, but she continues to have gastric distention and contrast in colon. No improvement with EES. States more pain since her pain meds were cut back. She did not tolerate the NGT and states that she will not be able to have this placed unless she is "knocked out." Of note, she does report that she has had botox injections in the past (few years ago) and did have some improvement with her symptoms. EES. Bethanechol. Will d/w Dr. Ortega. ? EGD with ngt placement, ? botox injections. - Diarrhea/Collagenous colitis. Colonoscopy as above. Started on prednisone, seems to be doing with this. Plan will be for Entocort at discharged. - HTN, DM per attending. - EGD with BOTOX injected. NG tube inserted. PLAN: - NG suction to low intermittent. - Trial of Bethanechol - Trial of EES - Prednisone 20 mg daily (transition to Budesonide 9mg PO daily at discharge) - After 24 hours of NG suction, give trial of clear liquids, then advance to full liquid. Jared Leavitt MD Apr 28, 2017 13:55
[2017-04-28] MEDS: BETHANECHOL CHL 25 MG TAB PO SCH ×2 (14:00→21:33)
[2017-04-28] MEDS ORDERED: DO NOT ADM ANY ANTICOAGULANT DRUGS PRN (14:02)
[2017-04-28] MEDS ORDERED: *morphine SULFATE 8 MG/ML PERIprocedure ONLY ONE (14:11)
[2017-04-28] MEDS ORDERED: LIDOCAINE HCL 1% PF 5 ML AMPULE OTHER ONE (14:21)
[2017-04-28] MEDS ORDERED: SUCCINYLCHOLINE CHLORIDE 100 MG/5 ML SYRINGE IV PUSH ONE (14:21)
[2017-04-28] MEDS ORDERED: PROPOFOL 200 MG/20 ML AMP IV ONE (14:21)
[2017-04-28] MEDS ORDERED: ONDANSETRON HCL 4 MG/2 ML VIAL IV PUSH ONE (14:21)
--- NOTE | 2017-04-28 16:39 | HHI.PR ---
Subjective Remarks No new complaints. Objective Vitals Vital Signs Date Time Temp Pulse Resp B/P (MAP) Pulse Ox O2 Delivery O2 Flow Rate FiO2 04/28/17 14:45 82 16 144/66 (92) 97 Nasal Cannula 2 04/28/17 14:30 87 16 145/62 (89) 96 Nasal Cannula 2 04/28/17 14:15 93 16 149/66 (93) 97 Nasal Cannula 2 04/28/17 14:00 97.7 103 16 164/89 (114) 99 Nasal Cannula 2 04/28/17 12:00 98.1 80 17 143/73 (96) 96 04/28/17 09:03 98 04/28/17 08:00 96.8 84 17 148/72 (97) 97 04/28/17 00:06 97.0 77 18 122/56 (78) 95 04/27/17 20:15 96.8 77 16 141/76 (97) 95 04/27/17 17:51 96 21 04/28/17 04/28/17 04/29/17 15:00 23:00 07:00 Intake Total 340 ml Output Total 0 ml Balance 340 ml Intake Oral 0 ml IV Total 40 ml Other 300 ml Output Urine Total 0 ml Gastric Drainage Total 0 ml Result Diagram: 04/27/17 0625 04/27/17 0625 Imaging Last Impressions Abdomen X-Ray 04/28/17 0600 Signed Impressions: Service Date/Time: Friday, April 28, 2017 09:17 - CONCLUSION: Stable appearance to the abdomen when compared to 04/26/17. There is persistent marked gaseous distention of the stomach. Hung Mason MD Upper GI Series 04/17/17 0000 Signed Impressions: Service Date/Time: Monday, April 17, 2017 12:48 - CONCLUSION: Mild gastroesophageal reflux. Otherwise unremarkable double contrast upper GI series. 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 No significant mesenteric stenotic disease. Harshil Hilton MD Objective Remarks General: NAD, AAOx3 Chest: CTA Cardiac: Regular Abd: +BS, mildly distended in the upper abdomen, upper and left sided tenderness , no guarding or rebound, incisions are c/d/i, no bowel sounds Ext: No edema A/P Problem List: (1) Nonspecific abdominal pain ICD Codes: R10.9 - Unspecified abdominal pain Plan: - Pt is a 51 yo WF with IDDM, HTN and GERD who was admitted to [facility] [place] [facility] on with complaints of upper abd pain, primarily LUQ and diarrhea. The abd pain has been constant for 6 weeks, associated with nausea and is worse after eating. She has had occasional vomiting, loose stools, and 12 lb weight loss. - Pt had an outpt evaluation with GI for the above complaints and had a CT Abd/ pelvis which was negative and was given Reglan without improvement. - Pt was then admitted to [facility] [place] in 03/2017 with these same complaints and again had a negative CT scan without evidence of obstruction. She had NGT placed and bowel rest. SBFT was negative as well. She was sent home on EES but presented back to GI with continued issues with abd pain, diarrhea, N/V. - Pt was admitted to [facility] for further workup on 04/13. - Pt underwent EGD/colonoscopy (04/14) with Dr. Luciano --> gastritis, esophagitis (?julia esophagitis), hiatal hernia, poor prep, small internal hemorrhoids. Pathology consistent with chemical gastropathy, moderate to severe acute suppurative esophagitis (fungal stain is negative and viral inclusions are not observed), biopsy from descending colon with features suggestive of collagenous colitis. - CTA (04/13) --> showed moderate compression of celiac artery by arcuate ligament. - General Surgery is following. - Pt underwent division of median arcuate ligament today with Dr. Soares and Dr. 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 No upper abdominal adhesions. - NGT out and pt tolerating liquids. Diet was advanced to soft per GS on 04/25 but pt having more abd bloating/discomfort and nausea on 04/26 - KUB on 04/26 -->Grossly distended stomach with mildly distended gas-filled small bowel. Colon is normal in caliber. This is a nonspecific pattern. - Instructed pt to eat more full liquids today - Simethicone 125mg Q8H - Pt may have some degree of gastroparesis contributing to her symptoms but in light on her recent surgery and narcotic use it is difficult to accurately test for this. Pt had previously been tried on Reglan and EES without much relief. - EGD (04/28/17) performed by Dr. Leavitt - BOTOX injection 100 IU. Injected into pylorus NG tube placed by anesthesia. There was fair amount of residual food in stomach. - NG suction to low intermittent. - Trial of Bethanechol - Trial of EES - Prednisone 20 mg daily (transition to Budesonide 9mg PO daily at discharge) - After 24 hours of NG suction, give trial of clear liquids, then advance to full liquid. - anticipate d/c to home in 3-4 days - DVT prophylaxis - supportive care (2) Diarrhea ICD Codes: R19.7 - Diarrhea, unspecified Plan: - Stool were negative for C diff on 04/13 and 04/26 - Stool studies for Cryptosporidium and Giardia are negative - Colonoscopy with pathology in descending colon with features of collagenous colitis - Pt with diarrhea again - GI reconsulted - Pt to be started on Prednisone and is planned to be switched to Budesonide at discharge. (3) Abdominal bloating ICD Codes: R14.0 - Abdominal distension (gaseous) Plan: - As above (4) Hypertension ICD Codes: I10 - Hypertension Status: Chronic Plan: - Stable off coreg (5) Type 2 diabetes mellitus with diabetic neuropathy ICD Codes: E11.40 - Type 2 diabetes mellitus with diabetic neuropathy, unspecified Plan: - Novolog sliding scale - Accu checks Problem Qualifiers (1) Diarrhea: Qualified Codes: R19.7 - Diarrhea, unspecified (2) Type 2 diabetes mellitus with diabetic neuropathy: Qualified Codes: E11.40 - Type 2 diabetes mellitus with diabetic neuropathy, unspecified Tyson Sapp DO Apr 28, 2017 16:39
[2017-04-28] MEDS: HYDROmorphone HCL PF 0.5 MG/0.5 ML SYRINGE IV PUSH PRN (17:16)
[2017-04-28] MEDS: SCOPOLAMINE 1.5 MG PATCH T-DERMAL SCH (20:00)
[2017-04-28] MEDS: BENZOCAINE 6 MG/MENTHOL 10 MG LOZENGE BUCCAL PRN (21:31)
[2017-04-29] VITALS (9 sets, daily range): BP systolic 138–193; BP diastolic 81–102; PULSE 72–85; RESP 16–20; TEMP 96.8–98.5; O2SAT 94–95
[2017-04-29] MEDS: HYDROmorphone HCL PF 0.5 MG/0.5 ML SYRINGE IV PUSH PRN ×5 (00:12→21:23)
[2017-04-29] MEDS: SIMETHICONE 125 MG CHEWABLE TAB PO SCH ×3 (00:12→15:56)
[2017-04-29] MEDS: ERYTHROMYCIN ETHYLSUCCINATE 400 MG/5 ML SUSP 100 ML BOTTLE PO SCH ×3 (00:12→15:57)
[2017-04-29] MEDS: PROMETHAZINE HCL 25 MG TAB PO SCH ×4 (00:18→18:27)
[2017-04-29] MEDS: 1/2 NS + KCL 20 MEQ INJ 1,000 ML IV SCH ×3 (03:00→21:31)
[2017-04-29] MEDS: BETHANECHOL CHL 25 MG TAB PO SCH ×3 (05:56→21:24)
[2017-04-29 08:13] LABS: BICARBONATE 25.5 MEQ/L (21.0-32.0); MAGNESIUM 1.7 MG/DL (1.5-2.5); POTASSIUM 3.9 MEQ/L (3.5-5.1)
[2017-04-29] MEDS: MEDIUM DOSE INSULIN NOVOLOG SUPPLEMENTAL SCALE SQ SCH ×3 (08:23→18:29)
[2017-04-29] MEDS: SODIUM CHLORIDE 0.9% FLUSH 10 ML FLUSH IV FLUSH SCH ×2 (09:00→21:31)
--- NOTE | 2017-04-29 09:17 | RADRPT ---
EXAM DATE/TIME: 04/29/2017 08:44 [place] COMPARISON: ABDOMEN KUB ONLY, April 28, 2017, 9:17. INDICATIONS : Abdomen pain. MEDICAL HISTORY : Gastroesophageal reflux disease. Hypertension. Diabetes mellitus type 2. Pancreatitis.Hiatal he rnia. Gastritis. SURGICAL HISTORY : Cholecystectomy. Tubal ligation. section ENCOUNTER: Subsequent ACUITY: 2 weeks PAIN SCORE: 7/10 LOCATION: Bilateral Abdomen. FINDINGS: Interval placement of gastric tube with tip projected in the antrum. No gaseous distention of the st omach. Barium is present scattered throughout the colon. No dilated loops of small bowel. Visualiz ed lower lungs are clear. Hemoclips in the right upper quadrant. CONCLUSION: Decompression of the distended stomach status post gastric tube placement. Hung Mason MD on April 29, 2017 at 9:15 Board Certified Radiologist. This report was verified electronically.
[2017-04-29] MEDS: ACETAMINOPHEN/HYDROcodone 325 MG/5 MG TAB PO PRN ×3 (09:26→18:56)
[2017-04-29] MEDS: PANTOPRAZOLE SODIUM 40 MG VIAL IV PUSH SCH ×2 (09:29→21:25)
[2017-04-29] MEDS: PREGABALIN 75 MG CAP PO SCH ×3 (09:30→18:27)
[2017-04-29] MEDS: LIPASE/PROTEASE/AMYLASE (6,000/19,000/30,000) CAP PO SCH ×3 (09:30→18:27)
[2017-04-29] MEDS: LACTOBACILLUS ACIDOPHILUS TAB PO SCH ×2 (09:31→21:25)
[2017-04-29] MEDS: BENZOCAINE 6 MG/MENTHOL 10 MG LOZENGE BUCCAL PRN (09:31)
[2017-04-29] MEDS: DULoxetine HCl DR 60 MG CAP PO SCH (09:31)
[2017-04-29] MEDS: predniSONE 20 MG TAB PO SCH (09:31)
[2017-04-29] MEDS: RIFAXIMIN 550 MG TAB PO SCH ×2 (09:32→21:25)
[2017-04-29] MEDS ORDERED: ENALAPRILAT 1.25 MG/ML VIAL IV PUSH PRN (10:15)
[2017-04-29] MEDS: CARVEDILOL 6.25 MG TAB PO SCH ×2 (11:16→21:24)
--- NOTE | 2017-04-29 12:14 | HHI.PR ---
Subjective Subjective Notes Underwent botox injection of pylorus yesterday. She had significant pain last night. Had a bowel movt after suppository two days ago. Objective Vitals/I&O Vital Signs Date Time Temp Pulse Resp B/P (MAP) Pulse Ox O2 Delivery O2 Flow Rate FiO2 04/29/17 10:19 177/102 (127) 04/29/17 08:00 97.7 80 16 95 04/28/17 17:15 Nasal Cannula 2.00 04/27/17 17:51 21 Labs Laboratory Tests Test 04/29/17 05:41 Blood Urea Nitrogen 5 Creatinine 0.49 Random Glucose 143 Calcium Level 8.7 Magnesium Level 1.7 Sodium Level 136 Potassium Level 3.9 Chloride Level 103 Carbon Dioxide Level 25.5 Anion Gap 8 Estimat Glomerular Filtration Rate 134 Date/Time Source Procedure Growth Status 04/16/17 15:55 Stool Stool Cryptosporidium Exam - Final NEGATIVE - NO CRYPTOSPORIDIUM ANTIGEN... Complete 04/16/17 15:55 Stool Stool Giardia Antigen (SAJI) - Final NEGATIVE - NO GIARDIA ANTIGEN DETECTE... 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 No significant mesenteric stenotic disease. Harshil Hilton MD Narrative Exam NAD NGT clamped Abd [employer] c/d/i, mod distention A/P Assessment and Plan 51 yo F chronic upper abdominal pain worse x 6 weeks assoc with nausea and weight loss, POD 7 division of median arcuate ligament. Underwent botox injection pylorus yesterday. Diet advancement per GI. Give laxative as there is barium still in the colon. Limit narcotics. Ludwig Soares MD Apr 29, 2017 12:14
--- NOTE | 2017-04-29 12:52 | HHI.GIFU ---
Subjective Remarks Resting in bed. States that she continues to have nausea, bloating, epigastric pain. C/O sore throat from the NGT. States no improvement in her symptoms. Objective Vitals I&O Vital Signs Date Time Temp Pulse Resp B/P (MAP) Pulse Ox O2 Delivery O2 Flow Rate FiO2 04/29/17 12:00 98.5 85 17 193/93 (126) 95 04/29/17 10:19 177/102 (127) 04/29/17 08:00 97.7 80 16 190/101 (130) 95 04/29/17 04:00 96.8 72 18 138/81 (100) 94 04/29/17 00:00 97.5 81 18 163/88 (113) 94 04/28/17 20:00 97.2 78 18 168/89 (115) 94 04/28/17 17:15 96 Nasal Cannula 2.00 04/28/17 16:00 98.5 86 16 151/78 (102) 96 04/28/17 14:45 82 16 144/66 (92) 97 Nasal Cannula 2 04/28/17 14:30 87 16 145/62 (89) 96 Nasal Cannula 2 04/28/17 14:15 93 16 149/66 (93) 97 Nasal Cannula 2 04/28/17 14:00 97.7 103 16 164/89 (114) 99 Nasal Cannula 2 I/O 04/28/17 04/28/17 04/28/17 04/29/17 04/29/17 04/29/17 07:00 15:00 23:00 07:00 15:00 23:00 Intake Total 1000 ml 340 ml 486 ml 245 ml Output Total 1001 ml 0 ml 1950 ml 1250 ml Balance -1 ml 340 ml -1464 ml -1005 ml Intake Oral 0 ml 120 ml 0 ml IV Total 1000 ml 40 ml 366 ml 245 ml Other 300 ml Output Urine Total 1000 ml 0 ml 1800 ml 1100 ml Stool Total 1 ml Gastric Drainage Total 0 ml 150 ml 150 ml # Bowel Movements 0 0 Laboratory Laboratory Tests Test 04/29/17 05:41 Blood Urea Nitrogen 5 Creatinine 0.49 Random Glucose 143 Calcium Level 8.7 Magnesium Level 1.7 Sodium Level 136 Potassium Level 3.9 Chloride Level 103 Carbon Dioxide Level 25.5 Anion Gap 8 Estimat Glomerular Filtration Rate 134 Date/Time Source Procedure Growth Status 04/16/17 15:55 Stool Stool Cryptosporidium Exam - Final NEGATIVE - NO CRYPTOSPORIDIUM ANTIGEN... Complete 04/16/17 15:55 Stool Stool Giardia Antigen (SAJI) - Final NEGATIVE - NO GIARDIA ANTIGEN DETECTE... Complete Imaging Last Impressions Abdomen X-Ray 04/29/17 0800 Signed Impressions: Service Date/Time: Saturday, April 29, 2017 08:44 - CONCLUSION: Decompression of the distended stomach status post gastric tube placement. Hung Mason MD Upper GI Series 04/17/17 0000 Signed Impressions: Service Date/Time: Monday, April 17, 2017 12:48 - CONCLUSION: Mild gastroesophageal reflux. Otherwise unremarkable double contrast upper GI series. 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 No significant mesenteric stenotic disease. Harshil Hilton MD Physical Exam HEENT: Normocephalic; atraumatic; no jaundice. CHEST: CTA CARDIAC: RRR with no murmur gallop or rubs. ABDOMEN: Soft, distended upper abdomen, mild-moderate tenderness upper abdomen ; no hepatosplenomegaly; bowel sounds are present in all four quadrants. EXTREMITIES: No clubbing, cyanosis, or edema. SKIN: Normal; no rash; no jaundice. DIE KEEPER: No focal deficits; alert and oriented times three. Assessment and Plan Plan ASSESSMENT: - Abdominal pain/bloating/nausea. Pt with persistent abdominal pain, bloating, nausea associated with food intake. She was previously treated with reglan/EES without any improvement. CTA noted moderate compression of celiac artery by arcuate ligament. EGD/colonoscopy (04/14) with Dr. Luciano--gastritis , esophagitis (?julia esophagitis), hiatal hernia, poor prep, small internal hemorrhoids. Pathology consistent with chemical gastropathy, moderate to severe acute suppurative esophagitis (fungal stain is negative and viral inclusions are not observed), biopsy from descending colon with features suggestive of collagenous colitis. Continues to have loose stools. Stool studies negative. S/P Division of median arcuate ligament (04/22/17), continues to have the same symptoms. KUB (04/26/17)---> Grossly distended stomach with mildly distended gas- filled small bowel. Colon is normal in caliber. This is a nonspecific pattern. Contrast from 04/17 still present in colon. S/P suppository, + BM. S/P EGD with BOTOX injection (04/28/17)---> Botox 100 IU. Injected into pylorus NG tube placed by anesthesia. There was fair amount of residual food in stomach. Bethanechol, EES. Simethicone. Pt states no significant improvement. C/O pain from NGT. Will add Maalox po (not thru NGT). Hopefully, she will have improvement int he next few days once the botox starts working. - Diarrhea/Collagenous colitis. Colonoscopy as above. Started on prednisone, seems to be doing with this. Plan will be for Entocort at discharged. - HTN, DM per attending. PLAN: - NPO - NGT to LIWS - S/P EGD with Botox injections - Cont. Bethanechol - Cont. EES - Cont. Simethicone - Add Maalox prn - Prednisone 20 mg daily (transition to Budesonide 9mg PO daily at discharge) - Supportive care - Further recommendations to follow based on results of above - Pt seen and examined by Dr. Leavitt and myself and this note is written on his behalf Radha Levine Apr 29, 2017 12:52
[2017-04-29] MEDS ORDERED: ALUMINUM/MAGNESIUM/SIMETH 30 ML CUP PO PRN (13:00)
--- NOTE | 2017-04-29 13:27 | HHI.PR ---
Subjective Remarks continued abdominal discomfort. Objective Vitals Vital Signs Date Time Temp Pulse Resp B/P (MAP) Pulse Ox O2 Delivery O2 Flow Rate FiO2 04/29/17 12:00 98.5 85 17 193/93 (126) 95 04/29/17 10:19 177/102 (127) 04/29/17 08:00 97.7 80 16 190/101 (130) 95 04/29/17 04:00 96.8 72 18 138/81 (100) 94 04/29/17 00:00 97.5 81 18 163/88 (113) 94 04/28/17 20:00 97.2 78 18 168/89 (115) 94 04/28/17 17:15 96 Nasal Cannula 2.00 04/28/17 16:00 98.5 86 16 151/78 (102) 96 04/28/17 14:45 82 16 144/66 (92) 97 Nasal Cannula 2 04/28/17 14:30 87 16 145/62 (89) 96 Nasal Cannula 2 04/28/17 14:15 93 16 149/66 (93) 97 Nasal Cannula 2 04/28/17 14:00 97.7 103 16 164/89 (114) 99 Nasal Cannula 2 Result Diagram: 04/27/17 0625 04/29/17 0541 Imaging Last Impressions Abdomen X-Ray 04/28/17 0600 Signed Impressions: Service Date/Time: Friday, April 28, 2017 09:17 - CONCLUSION: Stable appearance to the abdomen when compared to 04/26/17. There is persistent marked gaseous distention of the stomach. Hung Mason MD Upper GI Series 04/17/17 0000 Signed Impressions: Service Date/Time: Monday, April 17, 2017 12:48 - CONCLUSION: Mild gastroesophageal reflux. Otherwise unremarkable double contrast upper GI series. 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 No significant mesenteric stenotic disease. Harshil Hilton MD Objective Remarks General: NAD, AAOx3 Chest: CTA Cardiac: Regular Abd: +BS, mildly distended in the upper abdomen, upper and left sided tenderness , no guarding or rebound, incisions are c/d/i, no bowel sounds Ext: No edema A/P Problem List: (1) Nonspecific abdominal pain ICD Codes: R10.9 - Unspecified abdominal pain Plan: - Pt is a 51 yo WF with IDDM, HTN and GERD who was admitted to [facility] on with complaints of upper abd pain, primarily LUQ and diarrhea. The abd pain has been constant for 6 weeks, associated with nausea and is worse after eating. She has had occasional vomiting, loose stools, and 12 lb weight loss. - Pt had an outpt evaluation with GI for the above complaints and had a CT Abd/ pelvis which was negative and was given Reglan without improvement. - Pt was then admitted to [facility] in 03/2017 with these same complaints and again had a negative CT scan without evidence of obstruction. She had NGT placed and bowel rest. SBFT was negative as well. She was sent home on EES but presented back to GI with continued issues with abd pain, diarrhea, N/V. - Pt was admitted to [facility] for further workup on 04/13. - Pt underwent EGD/colonoscopy (04/14) with Dr. Luciano --> gastritis, esophagitis (?julia esophagitis), hiatal hernia, poor prep, small internal hemorrhoids. Pathology consistent with chemical gastropathy, moderate to severe acute suppurative esophagitis (fungal stain is negative and viral inclusions are not observed), biopsy from descending colon with features suggestive of collagenous colitis. - CTA (04/13) --> showed moderate compression of celiac artery by arcuate ligament. - General Surgery is following. - Pt underwent division of median arcuate ligament today with Dr. Soares and Dr. 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 No upper abdominal adhesions. - NGT out and pt tolerating liquids. Diet was advanced to soft per GS on 04/25 but pt having more abd bloating/discomfort and nausea on 04/26 - KUB on 04/26 -->Grossly distended stomach with mildly distended gas-filled small bowel. Colon is normal in caliber. This is a nonspecific pattern. - Instructed pt to eat more full liquids today - Simethicone 125mg Q8H - Pt may have some degree of gastroparesis contributing to her symptoms but in light on her recent surgery and narcotic use it is difficult to accurately test for this. Pt had previously been tried on Reglan and EES without much relief. - EGD (04/28/17) performed by Dr. Leavitt - BOTOX injection 100 IU. Injected into pylorus NG tube placed by anesthesia. There was fair amount of residual food in stomach. - KUB (04/29/17) --> gastric decompression, NGT placement - NG suction to low intermittent. - Trial of Bethanechol - Trial of EES - Prednisone 20 mg daily (transition to Budesonide 9mg PO daily at discharge) - prn maalox - DVT prophylaxis - supportive care - DVT prophylaxis (2) Diarrhea ICD Codes: R19.7 - Diarrhea, unspecified Plan: - Stool were negative for C diff on 04/13 and 04/26 - Stool studies for Cryptosporidium and Giardia are negative - Colonoscopy with pathology in descending colon with features of collagenous colitis - Pt with diarrhea again - GI reconsulted - Pt to be started on Prednisone and is planned to be switched to Budesonide at discharge. (3) Abdominal bloating ICD Codes: R14.0 - Abdominal distension (gaseous) Plan: - As above (4) Hypertension ICD Codes: I10 - Hypertension Status: Chronic Plan: - Stable off coreg (5) Type 2 diabetes mellitus with diabetic neuropathy ICD Codes: E11.40 - Type 2 diabetes mellitus with diabetic neuropathy, unspecified Plan: - Novolog sliding scale - Accu checks Problem Qualifiers (1) Diarrhea: Qualified Codes: R19.7 - Diarrhea, unspecified (2) Type 2 diabetes mellitus with diabetic neuropathy: Qualified Codes: E11.40 - Type 2 diabetes mellitus with diabetic neuropathy, unspecified Tyson Sapp DO Apr 29, 2017 13:27
[2017-04-29] MEDS ORDERED: MAGNESIUM HYDROXIDE SUSP 30 ML CUP PO ONE (15:00)
[2017-04-29] MEDS: MAGNESIUM HYDROXIDE SUSP 30 ML CUP PO SCH (21:24)
[2017-04-30] VITALS: BP 142/75; PULSE 76; RESP 20; TEMP 96.1; O2SAT 94
[2017-04-30] MEDS: MEDIUM DOSE INSULIN NOVOLOG SUPPLEMENTAL SCALE SQ SCH ×4 (00:02→17:35)
[2017-04-30] MEDS: ERYTHROMYCIN ETHYLSUCCINATE 400 MG/5 ML SUSP 100 ML BOTTLE PO SCH ×3 (00:02→16:00)
[2017-04-30] MEDS: PROMETHAZINE HCL 25 MG TAB PO SCH ×4 (00:45→17:37)
[2017-04-30] MEDS: SIMETHICONE 125 MG CHEWABLE TAB PO SCH ×3 (00:45→17:36)
[2017-04-30] MEDS: ACETAMINOPHEN/HYDROcodone 325 MG/5 MG TAB PO PRN ×3 (00:55→14:16)
[2017-04-30] MEDS: BETHANECHOL CHL 25 MG TAB PO SCH ×3 (04:43→21:50)
[2017-04-30 08:00] VITALS: BP 124/69; PULSE 81; RESP 16; TEMP 96.3; O2SAT 93
[2017-04-30 08:12] VITALS: O2SAT 92
[2017-04-30] MEDS: DULoxetine HCl DR 60 MG CAP PO SCH (08:29)
[2017-04-30] MEDS: LACTOBACILLUS ACIDOPHILUS TAB PO SCH ×2 (08:29→21:50)
[2017-04-30] MEDS: PREGABALIN 75 MG CAP PO SCH ×3 (08:29→17:36)
[2017-04-30] MEDS: PANTOPRAZOLE SODIUM 40 MG VIAL IV PUSH SCH ×2 (08:29→21:50)
[2017-04-30] MEDS: LIPASE/PROTEASE/AMYLASE (6,000/19,000/30,000) CAP PO SCH ×3 (08:29→17:36)
[2017-04-30] MEDS: SODIUM CHLORIDE 0.9% FLUSH 10 ML FLUSH IV FLUSH SCH ×2 (08:30→21:00)
[2017-04-30] MEDS: CARVEDILOL 6.25 MG TAB PO SCH ×2 (08:30→21:00)
[2017-04-30] MEDS: predniSONE 20 MG TAB PO SCH (08:31)
[2017-04-30] MEDS: MAGNESIUM HYDROXIDE SUSP 30 ML CUP PO SCH ×2 (08:31→21:00)
[2017-04-30] MEDS: RIFAXIMIN 550 MG TAB PO SCH ×2 (08:32→21:50)
--- NOTE | 2017-04-30 09:35 | HHI.PR ---
Subjective Subjective Notes NGT pulled out last night. No bowel movt since Thursday. Objective Vitals/I&O Vital Signs Date Time Temp Pulse Resp B/P (MAP) Pulse Ox O2 Delivery O2 Flow Rate FiO2 04/30/17 08:00 96.3 81 16 124/69 (87) 93 04/29/17 20:50 21 04/28/17 17:15 Nasal Cannula 2.00 Labs Date/Time Source Procedure Growth Status 04/16/17 15:55 Stool Stool Cryptosporidium Exam - Final NEGATIVE - NO CRYPTOSPORIDIUM ANTIGEN... Complete 04/16/17 15:55 Stool Stool Giardia Antigen (SAJI) - Final NEGATIVE - NO GIARDIA ANTIGEN DETECTE... 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 No significant mesenteric stenotic disease. Harshil Hilton MD Narrative Exam NAD [employer] c/d/i, mod distention A/P Assessment and Plan 51 yo F chronic upper abdominal pain worse x 6 weeks assoc with nausea and weight loss, S/p division of median arcuate ligament. Underwent botox injection pylorus 04/29. Start fulls. Give mag citrate. Limit narcotics. Check x ray in am. Ludwig Soares MD Apr 30, 2017 09:35
[2017-04-30] MEDS: 1/2 NS + KCL 20 MEQ INJ 1,000 ML IV SCH (09:48)
[2017-04-30] MEDS: HYDROmorphone HCL PF 0.5 MG/0.5 ML SYRINGE IV PUSH PRN ×2 (10:23→17:35)
[2017-04-30] MEDS ORDERED: MAGNESIUM CITRATE SOLN 300 ML BTL PO ONE (11:00)
--- NOTE | 2017-04-30 11:47 | HHI.GIFU ---
Subjective Remarks Resting in bed. States she is still not feeling well and continues to have abdominal pain. She accidently removed her NGT overnight. She has not had a BM since Thursday. Her abdomen is softer today and does not seem as distended. Objective Vitals I&O Vital Signs Date Time Temp Pulse Resp B/P (MAP) Pulse Ox O2 Delivery O2 Flow Rate FiO2 04/30/17 08:12 92 21 04/30/17 08:00 96.3 81 16 124/69 (87) 93 04/30/17 01:55 18 04/30/17 00:00 96.1 76 20 142/75 (97) 94 04/29/17 21:53 20 04/29/17 20:50 94 21 04/29/17 20:00 18 04/29/17 20:00 97.0 83 20 181/91 (121) 94 04/29/17 16:49 155/87 (109) 04/29/17 16:00 97.5 84 17 193/100 (131) 95 04/29/17 12:00 98.5 85 17 193/93 (126) 95 I/O 04/29/17 04/29/17 04/29/17 04/30/17 04/30/17 04/30/17 07:00 15:00 23:00 07:00 15:00 23:00 Intake Total 245 ml 0 ml 0 ml Output Total 1250 ml 100 ml 1250 ml Balance -1005 ml -100 ml -1250 ml Intake Oral 0 ml 0 ml 0 ml IV Total 245 ml Output Urine Total 1100 ml 800 ml Gastric Drainage Total 150 ml 100 ml 450 ml # Voids 4 # Bowel Movements 0 0 0 Laboratory Date/Time Source Procedure Growth Status 04/16/17 15:55 Stool Stool Cryptosporidium Exam - Final NEGATIVE - NO CRYPTOSPORIDIUM ANTIGEN... Complete 04/16/17 15:55 Stool Stool Giardia Antigen (SAJI) - Final NEGATIVE - NO GIARDIA ANTIGEN DETECTE... Complete Imaging Last Impressions Abdomen X-Ray 04/29/17 0800 Signed Impressions: Service Date/Time: Saturday, April 29, 2017 08:44 - CONCLUSION: Decompression of the distended stomach status post gastric tube placement. Hung Mason MD Upper GI Series 04/17/17 0000 Signed Impressions: Service Date/Time: Monday, April 17, 2017 12:48 - CONCLUSION: Mild gastroesophageal reflux. Otherwise unremarkable double contrast upper GI series. 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 No significant mesenteric stenotic disease. Harshil Hilton MD Physical Exam HEENT: Normocephalic; atraumatic; no jaundice. CHEST: CTA CARDIAC: RRR with no murmur gallop or rubs. ABDOMEN: Soft, mildly distended, improved from yesterday. no hepatosplenomegaly; bowel sounds are present in all four quadrants. EXTREMITIES: No clubbing, cyanosis, or edema. SKIN: Normal; no rash; no jaundice. NURSE CHEMICAL DEPENDENCY: No focal deficits; alert and oriented times three. Assessment and Plan Plan ASSESSMENT: - Abdominal pain/bloating/nausea. Pt with persistent abdominal pain, bloating, nausea associated with food intake. She was previously treated with reglan/EES without any improvement. CTA noted moderate compression of celiac artery by arcuate ligament. EGD/colonoscopy (04/14) with Dr. Luciano--gastritis , esophagitis (?julia esophagitis), hiatal hernia, poor prep, small internal hemorrhoids. Pathology consistent with chemical gastropathy, moderate to severe acute suppurative esophagitis (fungal stain is negative and viral inclusions are not observed), biopsy from descending colon with features suggestive of collagenous colitis. Continues to have loose stools. Stool studies negative. S/P Division of median arcuate ligament (04/22/17), continues to have the same symptoms. KUB (04/26/17)---> Grossly distended stomach with mildly distended gas- filled small bowel. Colon is normal in caliber. This is a nonspecific pattern. Contrast from 04/17 still present in colon. S/P suppository, + BM. S/P EGD with BOTOX injection (04/28/17)---> Botox 100 IU. Injected into pylorus NG tube placed by anesthesia. There was fair amount of residual food in stomach. Bethanechol, EES. Simethicone, Maalox prn. Clinically, her abdomen is less distended, but she continues to have abdominal pain. NGT accidently dislodged last night. Will leave out and start full liquids. Rpt. KUB in. - Diarrhea/Collagenous colitis. Colonoscopy as above. Started on prednisone, seems to be doing with this. Plan will be for Entocort at discharged. - HTN, DM per attending. PLAN: - Full liquids - Await KUB - Cont. Bethanechol - Cont. EES - Cont. Simethicone - Maalox prn - Prednisone 20 mg daily (transition to Budesonide 9mg PO daily at discharge) - S/P EGD with Botox injections (04/28/17) - Further recommendations to follow based on results of above - Pt seen and examined by Dr. Leavitt and myself and this note is written on his behalf Radha Levine Apr 30, 2017 11:47
[2017-04-30 12:00] VITALS: BP 121/65; PULSE 84; RESP 16; TEMP 97.6; O2SAT 94
[2017-04-30] MEDS: ONDANSETRON HCL 4 MG/2 ML VIAL IV PUSH PRN (14:16)
[2017-04-30 16:00] VITALS: BP 125/63; PULSE 82; RESP 16; TEMP 95.2; O2SAT 95
[2017-04-30] MEDS: POLYETHYLENE GLYCOL 17 GM PKG PO SCH ×3 (19:00→21:00)
[2017-04-30 20:00] VITALS: BP 99/61; PULSE 75; RESP 16; TEMP 97.4; O2SAT 92
[2017-05-01] VITALS (11 sets, daily range): BP systolic 96–120; BP diastolic 54–73; PULSE 66–80; RESP 16–18; TEMP 95.8–97.4; O2SAT 95–97
[2017-05-01] MEDS: PROMETHAZINE HCL 25 MG TAB PO SCH ×5 (00:28→23:48)
[2017-05-01] MEDS: ERYTHROMYCIN ETHYLSUCCINATE 400 MG/5 ML SUSP 100 ML BOTTLE PO SCH ×4 (00:28→23:48)
[2017-05-01] MEDS: SIMETHICONE 125 MG CHEWABLE TAB PO SCH ×4 (00:28→23:48)
[2017-05-01] MEDS: 1/2 NS + KCL 20 MEQ INJ 1,000 ML IV SCH ×2 (00:41→10:30)
[2017-05-01] MEDS: MEDIUM DOSE INSULIN NOVOLOG SUPPLEMENTAL SCALE SQ SCH ×5 (00:41→23:48)
[2017-05-01] MEDS: BETHANECHOL CHL 25 MG TAB PO SCH ×3 (06:04→19:52)
[2017-05-01] MEDS: ACETAMINOPHEN/HYDROcodone 325 MG/5 MG TAB PO PRN ×4 (06:19→19:52)
[2017-05-01] MEDS: CARVEDILOL 6.25 MG TAB PO SCH ×2 (09:00→19:53)
--- NOTE | 2017-05-01 09:12 | RADRPT ---
EXAM DATE/TIME: 05/01/2017 08:36 [facility] COMPARISON: ABDOMEN FLAT & UPRIGHT, March 27, 2017, 10:59. INDICATIONS : Distention- Abdominal pain. MEDICAL HISTORY : Gastroesophageal reflux disease. Hypertension Diabetes mellitus type II. Pancreatitis, Hiatal her erick, gastritis. SURGICAL HISTORY : Cholecystectomy. Tubal ligation. section. ENCOUNTER: Subsequent ACUITY: 3 weeks PAIN SCORE: 8/10 LOCATION: Abdomen. FINDINGS: Supine and upright views of the abdomen image data mild amount of barium in the right colon. No dila jimena loops of small bowel. The visualized lower lungs are clear. No evidence of organomegaly. Hemoc lips right upper quadrant. CONCLUSION: No dilated loops of small or large bowel Hung Mason MD on May 01, 2017 at 9:09 Board Certified Radiologist. This report was verified electronically.
[2017-05-01] MEDS: DULoxetine HCl DR 60 MG CAP PO SCH (09:58)
[2017-05-01] MEDS: MAGNESIUM HYDROXIDE SUSP 30 ML CUP PO SCH ×2 (09:58→19:53)
[2017-05-01] MEDS: PREGABALIN 75 MG CAP PO SCH ×3 (09:59→18:10)
[2017-05-01] MEDS: predniSONE 20 MG TAB PO SCH (09:59)
[2017-05-01] MEDS: RIFAXIMIN 550 MG TAB PO SCH ×2 (10:00→19:52)
[2017-05-01] MEDS: LIPASE/PROTEASE/AMYLASE (6,000/19,000/30,000) CAP PO SCH ×3 (10:00→18:09)
[2017-05-01] MEDS: SODIUM CHLORIDE 0.9% FLUSH 10 ML FLUSH IV FLUSH SCH ×2 (10:00→19:53)
[2017-05-01] MEDS: PANTOPRAZOLE SODIUM 40 MG VIAL IV PUSH SCH ×2 (10:24→19:52)
[2017-05-01] MEDS: LACTOBACILLUS ACIDOPHILUS TAB PO SCH ×2 (11:13→19:52)
--- NOTE | 2017-05-01 11:20 | HHI.GIFU ---
Subjective Remarks Resting in bed. Continues to have some abdominal discomfort- states about the same. + BM after magnesium citrate yesterday. Mild nausea. Tolerating full liquids. Objective Vitals I&O Vital Signs Date Time Temp Pulse Resp B/P (MAP) Pulse Ox O2 Delivery O2 Flow Rate FiO2 05/01/17 10:23 112/58 (76) 05/01/17 08:00 95.8 76 16 103/62 (76) 95 05/01/17 07:57 95 21 05/01/17 06:21 68 112/63 (79) 05/01/17 04:53 96.2 66 16 99/66 (77) 97 05/01/17 00:26 96.0 78 16 100/54 (69) 96 04/30/17 20:45 21 04/30/17 20:00 97.4 75 16 99/61 (74) 92 04/30/17 16:00 95.2 82 16 125/63 (83) 95 04/30/17 12:00 97.6 84 16 121/65 (83) 94 I/O 04/30/17 04/30/17 04/30/17 05/01/17 05/01/17 05/01/17 07:00 15:00 23:00 07:00 15:00 23:00 Intake Total 0 ml 852 ml 676 ml Output Total 1250 ml 300 ml 1300 ml Balance -1250 ml 552 ml -624 ml Intake Oral 0 ml 0 ml IV Total 852 ml 676 ml Output Urine Total 800 ml 300 ml 1300 ml Gastric Drainage Total 450 ml # Bowel Movements 0 0 Laboratory Date/Time Source Procedure Growth Status 04/16/17 15:55 Stool Stool Cryptosporidium Exam - Final NEGATIVE - NO CRYPTOSPORIDIUM ANTIGEN... Complete 04/16/17 15:55 Stool Stool Giardia Antigen (SAJI) - Final NEGATIVE - NO GIARDIA ANTIGEN DETECTE... Complete Imaging Last Impressions Abdomen X-Ray 05/01/17 0600 Signed Impressions: Service Date/Time: Monday, May 01, 2017 08:36 - CONCLUSION: No dilated loops of small or large bowel Hung Mason MD Upper GI Series 04/17/17 0000 Signed Impressions: Service Date/Time: Monday, April 17, 2017 12:48 - CONCLUSION: Mild gastroesophageal reflux. Otherwise unremarkable double contrast upper GI series. 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 No significant mesenteric stenotic disease. Harshil Hilton MD Physical Exam HEENT: Normocephalic; atraumatic; no jaundice. CHEST: CTA CARDIAC: RRR with no murmur gallop or rubs. ABDOMEN: Soft, mildly distended, no hepatosplenomegaly; bowel sounds are present in all four quadrants. EXTREMITIES: No clubbing, cyanosis, or edema. SKIN: Normal; no rash; no jaundice. CIGAR ROLLER: No focal deficits; alert and oriented times three. Assessment and Plan Plan ASSESSMENT: - Abdominal pain/bloating/nausea. Pt with persistent abdominal pain, bloating, nausea associated with food intake. She was previously treated with reglan/EES without any improvement. CTA noted moderate compression of celiac artery by arcuate ligament. EGD/colonoscopy (04/14) with Dr. Luciano--gastritis , esophagitis (?julia esophagitis), hiatal hernia, poor prep, small internal hemorrhoids. Pathology consistent with chemical gastropathy, moderate to severe acute suppurative esophagitis (fungal stain is negative and viral inclusions are not observed), biopsy from descending colon with features suggestive of collagenous colitis. Continues to have loose stools. Stool studies negative. S/P Division of median arcuate ligament (04/22/17), continues to have the same symptoms. KUB (04/26/17)---> Grossly distended stomach with mildly distended gas- filled small bowel. Colon is normal in caliber. This is a nonspecific pattern. Contrast from 04/17 still present in colon. S/P suppository, + BM. S/P EGD with BOTOX injection (04/28/17)---> Botox 100 IU. Injected into pylorus NG tube placed by anesthesia. There was fair amount of residual food in stomach. S/P Magnesium citrate (04/30). + BM. Clinically, much improved, less distended. She does continue to have some mild nausea and abdominal pain- about the same. Her abdominal distention is much improved. Bethanechol, EES. Simethicone. Tolerating full liquids. . - Diarrhea/Collagenous colitis. Colonoscopy as above. Started on prednisone, seems to be doing with this. Plan will be for Entocort at discharged. - HTN, DM per attending. PLAN: - Full liquids - Cont. Bethanechol - Cont. EES - Cont. Simethicone - Maalox prn - Prednisone 20 mg daily (transition to Budesonide 9mg PO daily at discharge) - S/P EGD with Botox injections (04/28/17) - Further recommendations to follow based on results of above - Pt seen and examined by Dr. Leavitt and myself and this note is written on his behalf Radha Levine May 01, 2017 11:20
[2017-05-01] MEDS: HYDROmorphone HCL PF 0.5 MG/0.5 ML SYRINGE IV PUSH PRN ×2 (12:56→23:07)
--- NOTE | 2017-05-01 13:46 | HHI.PR ---
Subjective Remarks still with some abdominal discomfort (+) BM Objective Vitals Vital Signs Date Time Temp Pulse Resp B/P (MAP) Pulse Ox O2 Delivery O2 Flow Rate FiO2 05/01/17 12:00 96.3 78 16 110/57 (74) 96 05/01/17 10:23 112/58 (76) 05/01/17 08:00 95.8 76 16 103/62 (76) 95 05/01/17 07:57 95 21 05/01/17 06:21 68 112/63 (79) 05/01/17 04:53 96.2 66 16 99/66 (77) 97 05/01/17 00:26 96.0 78 16 100/54 (69) 96 04/30/17 20:45 21 04/30/17 20:00 97.4 75 16 99/61 (74) 92 04/30/17 16:00 95.2 82 16 125/63 (83) 95 Result Diagram: 04/27/17 0625 04/29/17 0541 Imaging Last Impressions Abdomen X-Ray 04/28/17 0600 Signed Impressions: Service Date/Time: Friday, April 28, 2017 09:17 - CONCLUSION: Stable appearance to the abdomen when compared to 04/26/17. There is persistent marked gaseous distention of the stomach. Hung Mason MD Upper GI Series 04/17/17 0000 Signed Impressions: Service Date/Time: Monday, April 17, 2017 12:48 - CONCLUSION: Mild gastroesophageal reflux. Otherwise unremarkable double contrast upper GI series. 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 No significant mesenteric stenotic disease. Harshil Hilton MD Objective Remarks General: NAD, AAOx3 Chest: CTA Cardiac: Regular Abd: +BS, mildly distended in the upper abdomen, upper and left sided tenderness , no guarding or rebound, incisions are c/d/i, +BS x 4 Ext: No edema A/P Problem List: (1) Nonspecific abdominal pain ICD Codes: R10.9 - Unspecified abdominal pain Plan: - Pt is a 51 yo WF with IDDM, HTN and GERD who was admitted to [facility] [place] with complaints of upper abd pain, primarily LUQ and diarrhea. The abd pain has been constant for 6 weeks, associated with nausea and is worse after eating. She has had occasional vomiting, loose stools, and 12 lb weight loss. - Pt had an outpt evaluation with GI for the above complaints and had a CT Abd/ pelvis which was negative and was given Reglan without improvement. - Pt was then admitted to [facility] in 03/2017 with these same complaints and again had a negative CT scan without evidence of obstruction. She had NGT placed and bowel rest. SBFT was negative as well. She was sent home on EES but presented back to GI with continued issues with abd pain, diarrhea, N/V. - Pt was admitted to [facility] for further workup on 04/13. - Pt underwent EGD/colonoscopy (04/14) with Dr. Luciano --> gastritis, esophagitis (?julia esophagitis), hiatal hernia, poor prep, small internal hemorrhoids. Pathology consistent with chemical gastropathy, moderate to severe acute suppurative esophagitis (fungal stain is negative and viral inclusions are not observed), biopsy from descending colon with features suggestive of collagenous colitis. - CTA (04/13) --> showed moderate compression of celiac artery by arcuate ligament. - General Surgery is following. - Pt underwent division of median arcuate ligament today with Dr. Soares and Dr. 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 No upper abdominal adhesions. - NGT out and pt tolerating liquids. Diet was advanced to soft per GS on 04/25 but pt having more abd bloating/discomfort and nausea on 04/26 - KUB on 04/26 -->Grossly distended stomach with mildly distended gas-filled small bowel. Colon is normal in caliber. This is a nonspecific pattern. - Pt tolerating clear liquid diet - Simethicone 125mg Q8H - Pt may have some degree of gastroparesis contributing to her symptoms but in light on her recent surgery and narcotic use it is difficult to accurately test for this. Pt had previously been tried on Reglan and EES without much relief. - EGD (04/28/17) performed by Dr. Leavitt - BOTOX injection 100 IU. Injected into pylorus NG tube placed by anesthesia. There was fair amount of residual food in stomach. - KUB (04/29/17) --> gastric decompression, NGT placement - NG suction to low intermittent. - Trial of Bethanechol - Trial of EES - Prednisone 20 mg daily (transition to Budesonide 9mg PO daily at discharge) - prn maalox - DVT prophylaxis - supportive care - Case d/w General Surgery, Dr. Ribeiro (05/01/17). - Anticipate discharge to home 05/02 (2) Diarrhea ICD Codes: R19.7 - Diarrhea, unspecified Plan: - Stool were negative for C diff on 04/13 and 04/26 - Stool studies for Cryptosporidium and Giardia are negative - Colonoscopy with pathology in descending colon with features of collagenous colitis - Pt with diarrhea again - GI reconsulted - Pt to be started on Prednisone and is planned to be switched to Budesonide at discharge. (3) Abdominal bloating ICD Codes: R14.0 - Abdominal distension (gaseous) Plan: - As above (4) Hypertension ICD Codes: I10 - Hypertension Status: Chronic Plan: - Stable off coreg (5) Type 2 diabetes mellitus with diabetic neuropathy ICD Codes: E11.40 - Type 2 diabetes mellitus with diabetic neuropathy, unspecified Plan: - Novolog sliding scale - Accu checks Assessment and Plan Patient examined. Assessment and plan formulated with Savanna Hemphill PA-C. I agree with the above. Problem Qualifiers (1) Diarrhea: Qualified Codes: R19.7 - Diarrhea, unspecified (2) Type 2 diabetes mellitus with diabetic neuropathy: Qualified Codes: E11.40 - Type 2 diabetes mellitus with diabetic neuropathy, unspecified Tyson Sapp DO May 01, 2017 13:46
--- NOTE | 2017-05-01 15:34 | HHI.PR ---
Subjective Subjective Notes The patient is having less pain and it is different than previously. She is tolerating a diet; she had 4 loose BM's today. Objective Vitals/I&O Vital Signs Date Time Temp Pulse Resp B/P (MAP) Pulse Ox O2 Delivery O2 Flow Rate FiO2 05/01/17 12:00 96.3 78 16 110/57 (74) 96 05/01/17 07:57 21 04/28/17 17:15 Nasal Cannula 2.00 Labs Date/Time Source Procedure Growth Status 04/16/17 15:55 Stool Stool Cryptosporidium Exam - Final NEGATIVE - NO CRYPTOSPORIDIUM ANTIGEN... Complete 04/16/17 15:55 Stool Stool Giardia Antigen (SAJI) - Final NEGATIVE - NO GIARDIA ANTIGEN DETECTE... 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 No significant mesenteric stenotic disease. Harshil Hilton MD Cardiovascular: Regular Lungs: Clear Abdomen: Non-distended, Non-tender, BS normal Extremities: No edema A/P Assessment and Plan Stable overall; ok for d/c tomorrow. Vikas Ribeiro MD May 01, 2017 15:34
[2017-05-01] MEDS: SCOPOLAMINE 1.5 MG PATCH T-DERMAL SCH (23:08)
[2017-05-02 00:14] VITALS: BP 101/56; PULSE 79; RESP 18; TEMP 96.9; O2SAT 95
[2017-05-02 01:57] VITALS: BP 114/66; PULSE 69
[2017-05-02] MEDS: ACETAMINOPHEN/HYDROcodone 325 MG/5 MG TAB PO PRN ×2 (01:58→09:14)
[2017-05-02] MEDS: HYDROmorphone HCL PF 0.5 MG/0.5 ML SYRINGE IV PUSH PRN ×2 (04:28→11:05)
[2017-05-02 04:49] VITALS: BP 103/64; PULSE 84; RESP 18; TEMP 96.7; O2SAT 94
[2017-05-02] MEDS: PROMETHAZINE HCL 25 MG TAB PO SCH ×2 (06:38→14:09)
[2017-05-02] MEDS: BETHANECHOL CHL 25 MG TAB PO SCH ×2 (06:38→14:09)
[2017-05-02] MEDS: MEDIUM DOSE INSULIN NOVOLOG SUPPLEMENTAL SCALE SQ SCH ×2 (06:39→14:09)
[2017-05-02 08:00] VITALS: BP 142/81; PULSE 70; RESP 17; TEMP 96; O2SAT 99
[2017-05-02] MEDS: LACTOBACILLUS ACIDOPHILUS TAB PO SCH (09:00)
[2017-05-02] MEDS: ERYTHROMYCIN ETHYLSUCCINATE 400 MG/5 ML SUSP 100 ML BOTTLE PO SCH (09:15)
[2017-05-02] MEDS: LIPASE/PROTEASE/AMYLASE (6,000/19,000/30,000) CAP PO SCH ×2 (09:15→14:09)
[2017-05-02] MEDS: MAGNESIUM HYDROXIDE SUSP 30 ML CUP PO SCH (09:15)
[2017-05-02] MEDS: PANTOPRAZOLE SODIUM 40 MG VIAL IV PUSH SCH (09:15)
[2017-05-02] MEDS: RIFAXIMIN 550 MG TAB PO SCH (09:15)
[2017-05-02] MEDS: predniSONE 20 MG TAB PO SCH (09:16)
[2017-05-02] MEDS: PREGABALIN 75 MG CAP PO SCH ×2 (09:16→14:10)
[2017-05-02] MEDS: SODIUM CHLORIDE 0.9% FLUSH 10 ML FLUSH IV FLUSH SCH (09:16)
[2017-05-02] MEDS: CARVEDILOL 6.25 MG TAB PO SCH (09:16)
[2017-05-02] MEDS: DULoxetine HCl DR 60 MG CAP PO SCH (09:16)
[2017-05-02] MEDS: SIMETHICONE 125 MG CHEWABLE TAB PO SCH (09:17)
[2017-05-02] MEDS ORDERED: POTA20TA5 PO (09:25)
[2017-05-02] MEDS ORDERED: CREON6 PO (09:25)
[2017-05-02] MEDS ORDERED: BETH25 PO (09:25)
[2017-05-02] MEDS ORDERED: PROM25TA10 PO ×2 (09:25→12:06)
[2017-05-02] MEDS ORDERED: XIFA550T4 PO (09:25)
[2017-05-02] MEDS ORDERED: BUDE3CAP PO (09:29)
[2017-05-02] MEDS ORDERED: SIME1CHW11 PO (09:29)
--- NOTE | 2017-05-02 09:44 | HHI.DS ---
Discharge Summary Admission Date Apr 13, 2017 at 15:31 Discharge Date: May 02, 2017 Admitting Diagnosis abdominal pain recurrent nausea ,diarrhea direct admit from GI (1) Nonspecific abdominal pain ICD Codes: R10.9 - Unspecified abdominal pain (2) Diarrhea ICD Codes: R19.7 - Diarrhea, unspecified (3) Abdominal bloating ICD Codes: R14.0 - Abdominal distension (gaseous) (4) Hypertension ICD Codes: I10 - Hypertension Status: Chronic (5) Type 2 diabetes mellitus with diabetic neuropathy ICD Codes: E11.40 - Type 2 diabetes mellitus with diabetic neuropathy, unspecified Consultants Dr. Mustapha Krishnamurthy Procedures Panendoscopy with botox injection 04/28/17- Dr. Leavitt Robotic assisted laparoscopic division of median arcuate ligament 04/22/17 Dr. Soares Brief History 51 y/o white female with history of GERD and gastroparesis who was admitted 03-27 with abdominal bloating discomfort since beginning of March,had CT abdomen no significant findings,had no response to reglan . Did have NG tube placed which helped her symptoms and abdominal distension,a attempt to do small bowel series was tried but had residual barium. NG tube was removed,small bowel series eventually was unremarkable,patient started on Erythromycin 250mg tid before meals and po potassium also had mild UTI and treated with 5 days Cipro. As outpatient continued to have abdominal pain nausea and diarrhea and GI wanted patient readmitted for endoscopy and colonoscopy and CTA abdomen with GI consult and consider surgical evaluation. CBC/BMP: 04/29/17 0541 Imaging Last Impressions Abdomen X-Ray 05/01/17 0600 Signed Impressions: Service Date/Time: Monday, May 01, 2017 08:36 - CONCLUSION: No dilated loops of small or large bowel Hung Mason MD Upper GI Series 04/17/17 0000 Signed Impressions: Service Date/Time: Monday, April 17, 2017 12:48 - CONCLUSION: Mild gastroesophageal reflux. Otherwise unremarkable double contrast upper GI series. 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 No significant mesenteric stenotic disease. Harshil Hilton MD PE at Discharge General: NAD, AAOx3 Chest: CTA Cardiac: Regular Abd: +BS, mildly distended in the upper abdomen, upper and left sided tenderness , no guarding or rebound, incisions are c/d/i, +BS x 4 Ext: No edema Hospital Course Nonspecific abdominal pain - Pt is a 51 yo WF with IDDM, HTN and GERD who was admitted to [facility] [place] on with complaints of upper abd pain, primarily LUQ and diarrhea. The abd pain has been constant for 6 weeks, associated with nausea and is worse after eating. She has had occasional vomiting, loose stools, and 12 lb weight loss. - Pt had an outpt evaluation with GI for the above complaints and had a CT Abd/ pelvis which was negative and was given Reglan without improvement. - Pt was then admitted to [facility] [place] in 03/2017 with these same complaints and again had a negative CT scan without evidence of obstruction. She had NGT placed and bowel rest. SBFT was negative as well. She was sent home on EES but presented back to GI with continued issues with abd pain, diarrhea, N/V. - Pt was admitted to [facility] [place] for further workup on 04/13. - Pt underwent EGD/colonoscopy (04/14) with Dr. Luciano --> gastritis, esophagitis (?julia esophagitis), hiatal hernia, poor prep, small internal hemorrhoids. Pathology consistent with chemical gastropathy, moderate to severe acute suppurative esophagitis (fungal stain is negative and viral inclusions are not observed), biopsy from descending colon with features suggestive of collagenous colitis. - CTA (04/13) --> showed moderate compression of celiac artery by arcuate ligament. - General Surgery is following. - Pt underwent division of median arcuate ligament today with Dr. Soares and Dr. 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 No upper abdominal adhesions. - NGT out and pt tolerating liquids. Diet was advanced to soft per GS on 04/25 but pt having more abd bloating/discomfort and nausea on 04/26 - KUB on 04/26 -->Grossly distended stomach with mildly distended gas-filled small bowel. Colon is normal in caliber. This is a nonspecific pattern. - Pt tolerating clear liquid diet - Simethicone 125mg Q8H - Pt may have some degree of gastroparesis contributing to her symptoms but in light on her recent surgery and narcotic use it is difficult to accurately test for this. Pt had previously been tried on Reglan and EES without much relief. - EGD (04/28/17) performed by Dr. Leavitt - BOTOX injection 100 IU. Injected into pylorus NG tube placed by anesthesia. There was fair amount of residual food in stomach. - KUB (04/29/17) --> gastric decompression, NGT placement - NG suction to low intermittent. - Trial of Bethanechol - Trial of EES - Prednisone 20 mg daily (transition to Budesonide 9mg PO daily at discharge) - prn maalox - DVT prophylaxis - supportive care - Case d/w General Surgery, Dr. Ribeiro (05/01/17). Diarrhea - Stool were negative for C diff on 04/13 and 04/26 - Stool studies for Cryptosporidium and Giardia are negative - Colonoscopy with pathology in descending colon with features of collagenous colitis - Pt with diarrhea again - GI reconsulted - Pt to be started on Prednisone and is planned to be switched to Budesonide at discharge. Abdominal bloating - As above Hypertension - Stable off coreg Type 2 diabetes mellitus with diabetic neuropathy - Novolog sliding scale - Accu checks Pt Condition on Discharge: Stable Discharge Disposition: Disch w/ Home Health Serv Discharge Instructions DIET: Follow Instructions for: Full Liquid Diet Additional Diet Instructions: advnace as directed by GI Activities you can perform: Regular-No Restrictions Follow up Referrals: Gastroenterology - 2 Weeks with Savana Luciano MD PCP Follow-up - [address] Estrada Surgical - 2 Weeks with Ludwig Soares MD New Medications: Promethazine (Phenergan) 25 Mg Tablet 25 MG PO Q6H PRN for NAUSEA OR VOMITING, #20 TAB 0 Refills Bethanechol (Urecholine) 25 Mg Tab 25 MG PO Q8HR for GERD, #90 TAB 0 Refills Simethicone (Gas Relief Maximum Streng) 125 Mg Chw 125 MG PO Q8H for gas/bloating, #90 EA 0 Refills Changed Medications: Potassium Chloride Microencaps (Potassium Chloride Microencaps) 20 Meq Tab 20 MEQ PO DAILY for hyokalemia, #30 TAB 0 Refills (Changed from: Q12HR; Refills : ) Continued Medications: Carvedilol (Carvedilol) 6.25 Mg Tab 6.25 MG PO BID, #60 TAB 0 Refills Dapagliflozin (Farxiga) 5 Mg Tab 5 MG PO DAILY for Blood Sugar Management, #30 TAB [address] (Cymbalta DR) 60 Mg Capdr 60 MG PO DAILY, #30 CAP 0 Refills Erythromycin Base (Erythromycin Base) 250 Mg Tab 250 MG PO TIDAC for Infection for 90 Days, TAB 0 Refills Insulin Aspart Inj (Novolog Inj) 1,000 Unit/10 Ml Vial 0 SQ DIRECTED for Blood Sugar Management, #10 ML 0 Refills Sliding Scale as directed. Insulin Degludec Inj (Tresiba Flextouch Pen Inj) 300 unit/3 ML Pen 60 UNITS SQ DAILY for Blood Sugar Management for 30 Days, #15 ML 0 Refills Pantoprazole (Pantoprazole) 40 Mg Tab 40 MG PO DAILY for GERD, #30 TAB Pregabalin (Lyrica) 75 Mg Cap 75 MG PO TID, #90 CAP 0 Refills Additional Information Patient examined. Assessment and plan formulated with Lorie Sesay PA-C. I agree with the above. Lorie Sesay May 02, 2017 09:44 Tyson Sapp DO May 04, 2017 00:29
--- NOTE | 2017-05-02 09:45 | HHI.DCPOC ---
Discharge Care Plan Diagnosis: (1) Abdominal bloating (2) Gastroparesis (3) Median arcuate ligament syndrome Goals to Promote Your Health * To prevent worsening of your condition and complications * To maintain your health at the optimal level Directions to Meet Your Goals Take your medications as prescribed Follow your dietary instruction Follow activity as directed Keep your appointments as scheduled Take your immunizations and boosters as scheduled If your symptoms worsen call your PCP, if no PCP go to Urgent Care Center or Emergency Room Smoking is Dangerous to Your Health. Avoid second hand smoke Call the 24-hour hour crisis hotline for domestic abuse at Lorie Sesay May 02, 2017 09:45 Tyson Sapp DO May 04, 2017 00:30
[2017-05-02 12:00] VITALS: BP 137/80; PULSE 79; RESP 17; TEMP 97.7; O2SAT 96
--- NOTE | 2017-05-02 12:12 | HHI.FF ---
Face to Face Verification Diagnosis: (1) Gastroparesis (2) Median arcuate ligament syndrome (3) Type 2 diabetes mellitus with diabetic neuropathy Home Health Nursing Order: Medical education Signs/symptoms of disease process Diabetic education Medication education-adverse effect Nursing assessment with vital signs I have seen patient Rocío Barker on 05/02/17. My clinical findings support the need for the requested home health care services because: Med compliance is in question Med compliance is questionable Limited ability to care for self I certify that my clinical findings support that this patient is homebound because Unable to use public transportation Unable to use public transportation Lorie Sesay May 02, 2017 12:12 Tyson Sapp DO May 04, 2017 00:29
== END 2017-05-02 14:51 | disposition home health service (06) | DRG 357 ==
LOC: PH3A 15:31 → N07B 04-21 14:58
PROVIDERS: ADMIT Hospitalist; ATTEND Hospitalist
PROC: 0DB58ZX Excision of Esophagus, Via Natural or Artificial Opening Endoscopic, Diagnostic (ICD-10-PCS; 2017-04-14)
PROC: 0DB68ZX Excision of Stomach, Via Natural or Artificial Opening Endoscopic, Diagnostic (ICD-10-PCS; 2017-04-14)
PROC: 0DBK8ZX Excision of Ascending Colon, Via Natural or Artificial Opening Endoscopic, Diagnostic (ICD-10-PCS; 2017-04-14)
PROC: 0DBM8ZX Excision of Descending Colon, Via Natural or Artificial Opening Endoscopic, Diagnostic (ICD-10-PCS; 2017-04-14)
PROC: 8E0W4CZ Robotic Assisted Procedure of Trunk Region, Percutaneous Endoscopic Approach (ICD-10-PCS; 2017-04-22)
PROC: 04N Lower Arteries, Release (ICD-10-PCS; principal; 2017-04-22 14:07)
PROC: 3E0G8GC Introduction of Other Therapeutic Substance into Upper GI, Via Natural or Artificial Opening Endoscopic (ICD-10-PCS; 2017-04-28)
PROC: 0DJ08ZZ Inspection of Upper Intestinal Tract, Via Natural or Artificial Opening Endoscopic (ICD-10-PCS; 2017-04-28)
DX: R10.12 Left upper quadrant pain (principal); I77.4 Celiac artery compression syndrome; E11.43 Type 2 diabetes mellitus with diabetic autonomic (poly)neuropathy; B37.81 Candidal esophagitis; K31.84 Gastroparesis; E11.65 Type 2 diabetes mellitus with hyperglycemia; K56.7 Ileus, unspecified; I10 Essential (primary) hypertension; K44.9 Diaphragmatic hernia without obstruction or gangrene; K52.831 Collagenous colitis; K31.9 Disease of stomach and duodenum, unspecified; K29.70 Gastritis, unspecified, without bleeding; K64.4 Residual hemorrhoidal skin tags; K64.8 Other hemorrhoids; K21.0 Gastro-esophageal reflux disease with esophagitis; R14.0 Abdominal distension (gaseous); K59.00 Constipation, unspecified; G89.29 Other chronic pain; Z79.4 Long term (current) use of insulin; Z88.2 Allergy status to sulfonamides; Z88.8 Allergy status to other drugs, medicaments and biological substances
CPT/HCPCS: 74000; 74020; 74174; 74241; 76937; 80048; 80053; 80076; 82710; 82941; 82948; 83690; 83735; 84311; 84443; 84586; 85025; 86316; 87328; 87329; 87338; 87425; 87493; 87506; 88305; 88312; J1170; C9113; J0131; J0330; J0690; J1100; J1450; J1815; J2250; J2270; J2370; J2405; J2550; J3010; J7040; J7120; J7512; Q0169; Q9967

== ENCOUNTER 2017-05-04 14:08 | Inpatient (IN) | payer OTHER ==
[~2017-05-04] VITALS: Ht 162.6 cm; Wt 90.0 kg
[~2017-05-04 14:08] MED LIST changes: +BETH25 PO; -CIPR-9 PO; +PROM25TA10 PO; +SIME1CHW11 PO
[2017-05-04 14:10] VITALS: BP 175/107; PULSE 132; RESP 30; TEMP 98.5; O2SAT 98
--- NOTE | 2017-05-04 14:31 | PD ---
Physical Exam Date Seen by Provider: May 04, 2017 Time Seen by Provider: 14:27 Narrative 51-year-old white female presents from her department with persistent abdominal pain. She states that she was just discharged from the hospital this weekend after being treated for gastroparesis and having a procedure by Dr. Soares for a "pinched artery". The patient states that she's had chills but no fever. She had a decreased appetite. His pain is severe. It is unrelenting. No alleviating factors. No nausea no vomiting no urine symptoms. Patient's blood sugar yesterday was 167. She did not check her sugar this morning. She has a history of insulin-dependent diabetes. Patient is taken her medications morning. Pain is sharp and cramping. Rates it a /10. Vital signs reviewed. Pt. waiting for bed placement. Data Data Last Documented VS Vital Signs Date Time Temp Pulse Resp B/P (MAP) Pulse Ox O2 Delivery O2 Flow Rate FiO2 05/04/17 14:10 98.5 132 30 175/107 (129) 98 MDM Medical Record Reviewed: No Supervised Visit with MARY: Germain Nunez May 04, 2017 14:31
[2017-05-04 15:13] LABS: AUTOMATED NEUTROPHIL # 11.9 TH/MM3 (1.8-7.7); BASOPHIL # 0.2 TH/MM3 (0-0.2); BASOPHIL % 1.1 % (0.0-2.0); EOSINOPHIL # 0.3 TH/MM3 (0-0.4); EOSINOPHIL % 1.8 % (0.0-4.0); HEMATOCRIT 49.7 % (35.0-46.0); HEMO FLAGS DIFF FINAL; LYMPHOCYTE # 2.9 TH/MM3 (1.0-4.8); MEAN CELL VOLUME 86.6 FL (80.0-100.0); MEAN CORPUSCULAR HEMOGLOBIN 28.7 PG (27.0-34.0); MEAN CORPUSCULAR HGB CONC 33.2 % (32.0-36.0); MONO % 5.2 % (0.0-8.0); NEUT % 73.9 % (16.0-70.0); PLATELET COUNT 479 TH/MM3 (150-450); RED BLOOD COUNT 5.74 MIL/MM3 (4.00-5.30); RED CELL DISTRIBUTION WIDTH 13.2 % (11.6-17.2)
[2017-05-04 15:39] LABS: ANION GAP 13 MEQ/L (5-15); AST (GOT) 24 U/L (15-37); BICARBONATE 19.7 MEQ/L (21.0-32.0); BLOOD UREA NITROGEN 7 MG/DL (7-18); CHLORIDE 101 MEQ/L (98-107); GLOMERULAR FILTRATION RATE 62 ML/MIN (>89); POTASSIUM 4.2 MEQ/L (3.5-5.1); SODIUM (NA) 134 MEQ/L (136-145)
[2017-05-04 15:43] LABS: ALKALINE PHOSPHATASE 127 U/L (45-117); ALT (GPT) 27 U/L (10-53)
[2017-05-04] MEDS ORDERED: HYDROmorphone HCL PF 1 MG/ML VIAL IV PUSH ONE ×2 (16:15→19:00)
[2017-05-04] MEDS ORDERED: SODIUM CHLOR 0.9% 1000 ML INJ 1,000 ML IV ONE (16:15)
[2017-05-04] MEDS ORDERED: ONDANSETRON HCL 4 MG/2 ML VIAL IV PUSH ONE (16:15)
[2017-05-04 17:14] VITALS: BP 143/84; PULSE 95; RESP 16; O2SAT 98
[2017-05-04] MEDS ORDERED: IOHEXOL 350 MG/ML 10 ML VIAL (for RAD DIAG) IVCONTRAST ONE (18:00)
[2017-05-04 18:29] VITALS: BP 130/66; PULSE 96; RESP 18; O2SAT 98
[2017-05-04] MEDS ORDERED: INSU1INJ13 SQ (18:29)
--- NOTE | 2017-05-04 18:33 | RADRPT ---
EXAM DATE/TIME: 05/04/2017 17:48 [facility] COMPARISON: CT ABDOMEN & PELVIS W CONTRAST, March 23, 2015, 12:42. INDICATIONS : Abdomen pain. IV CONTRAST: 90 cc Omnipaque 350 (iohexol) IV ORAL CONTRAST: No oral contrast ingested. RADIATION DOSE: 8.77 CTDIvol (mGy) MEDICAL HISTORY : Hypertension. SURGICAL HISTORY : Cholecystectomy. Appendectomy.Tubal ligation. ENCOUNTER: Initial ACUITY: 1 day PAIN SCALE: 4/10 LOCATION: Bilateral abdomen. TECHNIQUE: Volumetric scanning of the abdomen and pelvis was performed. Using automated exposure control and ad justment of the mA and/or kV according to patient size, radiation dose was kept as low as reasonably achievable to obtain optimal diagnostic quality images. DICOM format image data is available electro nically for review and comparison. FINDINGS: LOWER LUNGS: The visualized lower lungs are clear. LIVER: Homogeneous density without lesion. There is no dilation of the biliary tree. The patient status pos t cholecystectomy. There is mild hepatic ptosis. SPLEEN: Normal size without lesion. PANCREAS: Within normal limits. KIDNEYS: Normal in size and shape. There is no solid mass, stone or hydronephrosis. There is a stable cyst in the left mid kidney ADRENAL GLANDS: Within normal limits. VASCULAR: There is no aortic aneurysm. BOWEL/MESENTERY: There is a small retrocardiac hiatal hernia. The stomach, small bowel, and colon demonstrate no acute abnormality. There is no free intraperitoneal air or fluid. Contrast or calcification is noted in t he appendix which is otherwise unremarkable. ABDOMINAL WALL: Within normal limits. RETROPERITONEUM: There is no lymphadenopathy. BLADDER: No wall thickening or mass. REPRODUCTIVE: Within normal limits. INGUINAL: There is no lymphadenopathy or hernia. MUSCULOSKELETAL: Within normal limits for patient age. CONCLUSION: 1. Unremarkable bowel gas pattern with no inflammatory change or obstruction. 2. Mild hepatic steatosis. 3. Status post cholecystectomy. Rolly Padilla MD on May 04, 2017 at 18:29 Board Certified Radiologist. This report was verified electronically.
--- NOTE | 2017-05-04 18:38 | PD ---
HPI Chief Complaint: Abdominal Pain Time Seen by Provider: 16:04 Travel History International Travel<30 days: No Contact w/Intl Traveler<30days: No Traveled to known affect area: No History of Present Illness HPI Diagnoses a 51-year-old female with history gastroparesis, diabetes most, who presents here with severe abdominal pain. She rates the pain as 10 out of 10 on the pain scale. Patient was recently admitted and had a re-reduction of a compressed celiac artery performed. He denies any fevers, chills. She has a nausea vomiting diarrhea this point. She reports the pain is exquisite and sharp. PFSH Past Medical History Arthritis: Yes Asthma: No Autoimmune Disease: No Blood Disorders: No Anxiety: No Depression: Yes (WELL MANAGED MEDICALLY ) Heart Rhythm Problems: No Cancer: No Cardiovascular Problems: Yes High Cholesterol: Yes Chemotherapy: No Chest Pain: Yes Congestive Heart Failure: No COPD: No Cerebrovascular Accident: No Diabetes: Yes Diminished Hearing: No Endocrine: Yes Gastrointestinal Disorders: Yes (gastroparesis) GERD: Yes Glaucoma: No Genitourinary: Yes (FREQUENT YEAST INFECTIONS ) Headaches: Yes Hepatitis: No Hiatal Hernia: No Hypertension: Yes Immune Disorder: No Implanted Vascular Access Dvce: No Kidney Stones: No Musculoskeletal: Yes (NUEROPATHY ) Neurologic: Yes (NEUROPATHY ) Psychiatric: Yes Reproductive: No Respiratory: Yes Immunizations Current: No Myocardial Infarction: No Radiation Therapy: No Renal Failure: No Seizures: No Sleep Apnea: Yes Thyroid Disease: No Ulcer: No Tubal Ligation: Yes Past Surgical History Abdominal Surgery: Yes (GALLBLADDER, ADHESIONS REMOVED ) AICD: No Section: Yes (X 2) Cholecystectomy: Yes Genitourinary Surgery: No Gynecologic Surgery: Yes (2 C SECTIONS, TUBAL LIGATION ) Oral Surgery: Yes (WISDOM TEETH ) Pacemaker: No Thoracic Surgery: No Other Surgery: Yes (LAPAROSCOPY) Social History Alcohol Use: Yes (on occasion) Tobacco Use: No Substance Use: No Allergies-Medications (Allergen,Severity, Reaction): Coded Allergies: Sulfa (Sulfonamide Antibiotics) (Unverified Allergy, Severe, BREATHING DIFFICULTIES, 05/04/17) gabapentin (Verified Allergy, Severe, AMNESIA, 05/04/17) Reported Meds & Prescriptions Reported Meds & Active Scripts Active Phenergan (Promethazine HCl) 25 Mg Tablet 25 Mg PO Q6H PRN Gas Relief Maximum Streng (Simethicone) 125 Mg Chw 125 Mg PO Q8H Urecholine (Bethanechol Chloride) 25 Mg Tab 25 Mg PO Q8HR Potassium Chloride Microencaps 20 Meq Tab 20 Meq PO DAILY Erythromycin Base 250 Mg Tab 250 Mg PO TIDAC 90 Days Pantoprazole (Pantoprazole Sodium) 40 Mg Tab 40 Mg PO DAILY Reported Tresiba Flextouch Pen Inj (Insulin Degludec Inj) 600 unit/3 ML Pen 50 Units SQ DAILY Farxiga (Dapagliflozin) 5 Mg Tab 5 Mg PO DAILY Novolog Inj (Insulin Aspart) 1,000 Unit/10 Ml Vial 0 SQ DIRECTED Sliding Scale as directed. Lyrica (Pregabalin) 75 Mg Cap 75 Mg PO TID Carvedilol 6.25 Mg Tab 6.25 Mg PO BID Cymbalta DR (Duloxetine HCl) 60 Mg Capdr 60 Mg PO DAILY Review of Systems Except as stated in HPI: all other systems reviewed are Neg General / Constitutional: No: Fever, Chills HENT: No: Headaches, Lightheadedness Cardiovascular: No: Chest Pain or Discomfort, Palpitations Respiratory: No: Cough, Shortness of Breath Gastrointestinal: Positive: Nausea, Abdominal Pain (upper), No: Vomiting, Diarrhea Genitourinary: No: Frequency, Dysuria Neurologic: No: Weakness, Dizziness, Headache Physical Exam Narrative GENERAL: Well-developed well-nourished female in obvious distress SKIN: Focused skin assessment warm/dry. HEAD: Atraumatic. Normocephalic. EYES: No scleral icterus. No injection or drainage. ENT: No nasal bleeding or discharge. Mucous membranes pink and moist. NECK: Trachea midline. Supple. CARDIOVASCULAR: Regular rate and rhythm. No murmur appreciated. RESPIRATORY: No accessory muscle use. Clear to auscultation. Breath sounds equal bilaterally. GASTROINTESTINAL: Abdomen soft, nondistended. She has tenderness to palpation in her upper abdominal area. Bilateral upper and right and mid epigastric. No guarding or rebound. MUSCULOSKELETAL: No obvious deformities. No clubbing. No cyanosis. No edema. NEUROLOGICAL: Awake and alert. No obvious cranial nerve deficits. Motor grossly within normal limits. Normal speech. Data Data Last Documented VS Vital Signs Date Time Temp Pulse Resp B/P (MAP) Pulse Ox O2 Delivery O2 Flow Rate FiO2 05/04/17 18:29 96 18 130/66 (87) 98 Room Air 05/04/17 14:10 98.5 Orders Orders Complete Blood Count With Diff (05/04/17 14:32) Comprehensive Metabolic Panel (05/04/17 14:32) Lipase (05/04/17 14:32) Urinalysis - C+S If Indicated (05/04/17 14:32) Ondansetron Inj (Zofran Inj) (05/04/17 16:15) Hydromorphone Pf Inj (Dilaudid Pf Inj) (05/04/17 16:15) Sodium Chlor 0.9% 1000 Ml Inj (Ns 1000 M (05/04/17 16:15) Ct Abd/Pel W Iv Contrast(Rout) (05/04/17 16:19) Iohexol 350 Inj (Omnipaque 350 Inj) (05/04/17 18:00) Hydromorphone Pf Inj (Dilaudid Pf Inj) (05/04/17 19:00) Sodium Chlor 0.9% 1000 Ml Inj (Ns 1000 M (05/04/17 19:00) Admit Order (Ed Use Only) (05/04/17 19:00) Labs Laboratory Tests Test 05/04/17 14:48 White Blood Count 16.0 TH/MM3 Red Blood Count 5.74 MIL/MM3 Hemoglobin 16.5 GM/DL Hematocrit 49.7 % Mean Corpuscular Volume 86.6 FL Mean Corpuscular Hemoglobin 28.7 PG Mean Corpuscular Hemoglobin Concent 33.2 % Red Cell Distribution Width 13.2 % Platelet Count 479 TH/MM3 Mean Platelet Volume 7.0 FL Neutrophils (%) (Auto) 73.9 % Lymphocytes (%) (Auto) 18.0 % Monocytes (%) (Auto) 5.2 % Eosinophils (%) (Auto) 1.8 % Basophils (%) (Auto) 1.1 % Neutrophils # (Auto) 11.9 TH/MM3 Lymphocytes # (Auto) 2.9 TH/MM3 Monocytes # (Auto) 0.8 TH/MM3 Eosinophils # (Auto) 0.3 TH/MM3 Basophils # (Auto) 0.2 TH/MM3 CBC Comment DIFF FINAL Differential Comment Blood Urea Nitrogen 7 MG/DL Creatinine 0.95 MG/DL Random Glucose 272 MG/DL Total Protein 8.7 GM/DL Albumin 3.7 GM/DL Calcium Level 10.3 MG/DL Alkaline Phosphatase 127 U/L Aspartate Amino Transf (AST/SGOT) 24 U/L Alanine Aminotransferase (ALT/SGPT) 27 U/L Total Bilirubin 1.0 MG/DL Sodium Level 134 MEQ/L Potassium Level 4.2 MEQ/L Chloride Level 101 MEQ/L Carbon Dioxide Level 19.7 MEQ/L Anion Gap 13 MEQ/L Estimat Glomerular Filtration Rate 62 ML/MIN Lipase 207 U/L MDM Medical Decision Making Medical Screen Exam Complete: Yes Emergency Medical Condition: Yes Differential Diagnosis Perforated viscus versus bowel obstruction versus obstipation dehydration. Narrative Course Did year-old female who had recent release of a band of her celiac artery, presents today with abdominal pain. Patient also has history of gastroparesis. White count 16,000. Patient also is hemoconcentrated. Her blood sugar is 272. She's been given one dose of Dilaudid and I V fluids. Patient is still having discomfort and is required a second dose of IV pain medicines. Given the white count and hemoconcentration and elevated blood sugar, I recommended that we admit her for observation until she is under pain control. CT scan of her abdomen shows no evidence of acute process. Case was discussed with Dr. Angel Luis Mccracken, [facility] hospitalist, who agrees to place patient under observation. He will come to see the patient and write admission orders. Diagnosis Primary Impression: Intractable abdominal pain Additional Impressions: recent abdominal surgery Gastroparesis Type 2 diabetes mellitus with diabetic neuropathy Admitting Information Admitting Physician Requests: Observation Renato Mancilla MD May 04, 2017 18:38
[2017-05-04] MEDS ORDERED: SODIUM CHLOR 0.9% 1000 ML INJ 1,000 ML IV SCH (19:00)
[2017-05-04 19:03] VITALS: BP 131/74; PULSE 97; RESP 18; O2SAT 99
[2017-05-04 19:26] LABS: BACTERIA, URINE OCC /hpf; BLOOD, URINE NEG (NEG); COMMENT (UR) CULT NOT INDICATED; CULTURE IF INDICATED CULT NOT INDICATED; GLUCOSE,URINE 1000 mg/dL (NEG); HYALINE CAST, URINE 43 /lpf (RARE); KETONE, URINE 10 mg/dL (NEG); MUCUS URINE FEW /lpf (OCC); NITRITE,URINE NEG (NEG); PH, URINE 7.5 (5.0-8.5); SQUAMOUS EPITHELIAL CELL URINE 1 /hpf (0-5); URINE COLOR DARK-YELLOW (YELLW/STRAW)
[2017-05-04] MEDS ORDERED: PROMETHAZINE HCL 25 MG TAB PO PRN (19:30)
[2017-05-04] MEDS ORDERED: GLUCAGON 1 MG/ML VIAL OTHER PRN (19:45)
[2017-05-04] MEDS ORDERED: DEXTROSE 50% IN WATER 50 ML VIAL(D50) IV PUSH PRN (19:45)
[2017-05-04] MEDS: PANTOPRAZOLE SODIUM 40 MG VIAL IV PUSH SCH (20:02)
--- NOTE | 2017-05-04 20:08 | HHI.HP ---
HPI Service [facility] Hospitalists Primary Care Physician Manisha Estrada MD Admission Diagnosis intractable abdominal pain, leukocytosis, hemoconcentraion, hypergly Chief Complaint: abdomen pain Travel History International Travel<30 Days: No Contact w/Intl Traveler <30 Da: No Traveled to Known Affected Are: No History of Present Illness Patient is 51 yo female with ongoing problems with abdomen pain. This is her third admission. She was [place] admitted [place] [facility] [place] then 04/13-05/02 after transfer to [facility]. She initially complained of pain LUQ and diarrhea. The abd pain had been constant for 6 weeks, associated with nausea and was worse after eating. She had occasional vomiting , loose stools, and 12 lb weight loss.Pt had an outpt evaluation with GI for the above complaints and had a CT Abd/pelvis which was negative and was given Reglan without improvement. Pt was then admitted to [facility] [place] 03[place] with these same complaints and again had a negative CT scan without evidence of obstruction. She had NGT placed and bowel rest. SBFT was negative as well. She was sent home on EES but presented back to GI with continued issues with abd pain, diarrhea, N/V. Pt was admitted to [facility] [place] further workup on 04/13. Pt underwent EGD/colonoscopy (04/14) with Dr. Luciano --> gastritis, esophagitis ( ?julia esophagitis), hiatal hernia, poor prep, small internal hemorrhoids. Pathology consistent with chemical gastropathy, moderate to severe acute suppurative esophagitis (fungal stain is negative and viral inclusions are not observed), biopsy from descending colon with features suggestive of collagenous colitis. 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 She was transferred to [facility] for surgery. Pt underwent division of median arcuate ligament today with Dr. Soares and Dr. 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 No upper abdominal adhesions. NGT removed and was tolerating liquids. Diet was advanced to soft per GS on but pt having more abd bloating/discomfort and nausea on 04/26 KUB on 04/26 -->Grossly distended stomach with mildly distended gas-filled small bowel. Colon is normal in caliber. This is a nonspecific pattern. Pt felt to have some degree of gastroparesis contributing to her symptoms but in light on her recent surgery and narcotic use it is difficult to accurately test for this. Pt had previously been tried on Reglan and EES without much relief. EGD (04/28/17) performed by Dr. Leavitt- BOTOX injection 100 IU. Injected into pylorus NG tube placed by anesthesia. There was fair amount of residual food in stomach. KUB (04/29/17) --> gastric decompression, NGT placement Trial of Bethanechol and Trial of EES were given. she was tolerating full liquid diet at time of d/c. - Prednisone 20 mg daily started for collagenous colitis and stopped at time of d/c. After d/c home pt says she was having a different upper abdomen pain that was constant and radiating to back. she has not been eating much but admits that eating is not making the pain worse. she has moved her bowels after d/c. denies any fever or chills and no vomiting. When I arrive pt seems anxious and c/o 02/12 pain after ED gave dilaudid. She feels it is not her typical GP pain. Review of Systems Other upper abdomen pain going through to back. Past Family Social History Past Medical History gastroparesis diabetes peripheral neuropathy depression htn LEEP x2 Laparoscopy with lysis of adhesions on two prior occasions Laparoscopic cholecystectomy EGD/colonoscopy (04/14) with Dr. Luciano --> gastritis, esophagitis (?julia esophagitis), hiatal hernia, poor prep, small internal hemorrhoids. Pathology consistent with chemical gastropathy, moderate to severe acute suppurative esophagitis (fungal stain is negative and viral inclusions are not observed), biopsy from descending colon with features suggestive of collagenous colitis. 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 Pt underwent division of median arcuate ligament today with Dr. Soares and Dr. 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 No upper abdominal adhesions. EGD (04/28/17) performed by Dr. Leavitt- BOTOX injection 100 IU. Injected into pylorus NG tube placed by anesthesia. There was fair amount of residual food in stomach. Reported Medications Phenergan (Promethazine HCl) 25 Mg Tablet 25 Mg PO Q6H PRN Gas Relief Maximum Streng (Simethicone) 125 Mg Chw 125 Mg PO Q8H Urecholine (Bethanechol Chloride) 25 Mg Tab 25 Mg PO Q8HR Potassium Chloride Microencaps 20 Meq Tab 20 Meq PO DAILY Erythromycin Base 250 Mg Tab 250 Mg PO TIDAC 90 Days Pantoprazole (Pantoprazole Sodium) 40 Mg Tab 40 Mg PO DAILY Tresiba Flextouch Pen Inj (Insulin Degludec Inj) 600 unit/3 ML Pen 50 Units SQ DAILY Farxiga (Dapagliflozin) 5 Mg Tab 5 Mg PO DAILY Novolog Inj (Insulin Aspart) 1,000 Unit/10 Ml Vial 0 SQ DIRECTED Sliding Scale as directed. Lyrica (Pregabalin) 75 Mg Cap 75 Mg PO TID Carvedilol 6.25 Mg Tab 6.25 Mg PO BID Cymbalta DR (Duloxetine HCl) 60 Mg Capdr 60 Mg PO DAILY Allergies: Coded Allergies: Sulfa (Sulfonamide Antibiotics) (Unverified Allergy, Severe, BREATHING DIFFICULTIES, 05/04/17) gabapentin (Verified Allergy, Severe, AMNESIA, 05/04/17) Family History nc Social History no tob/etoh Physical Exam Vital Signs oriented heart reg lung cta abd upper abdomen tender/no rebound nd bs present. surgical scars healing. ext no edema Vital Signs Date Time Temp Pulse Resp B/P (MAP) Pulse Ox O2 Delivery O2 Flow Rate FiO2 05/04/17 20:02 05/04/17 19:03 97 18 131/74 (93) 99 Room Air 05/04/17 18:29 96 18 130/66 (87) 98 Room Air 05/04/17 17:14 95 16 143/84 (103) 98 Room Air 05/04/17 14:10 98.5 132 30 175/107 (129) 98 Laboratory Laboratory Tests Test 05/04/17 14:48 05/04/17 18:45 White Blood Count 16.0 Red Blood Count 5.74 Hemoglobin 16.5 Hematocrit 49.7 Mean Corpuscular Volume 86.6 Mean Corpuscular Hemoglobin 28.7 Mean Corpuscular Hemoglobin Concent 33.2 Red Cell Distribution Width 13.2 Platelet Count 479 Mean Platelet Volume 7.0 Neutrophils (%) (Auto) 73.9 Lymphocytes (%) (Auto) 18.0 Monocytes (%) (Auto) 5.2 Eosinophils (%) (Auto) 1.8 Basophils (%) (Auto) 1.1 Neutrophils # (Auto) 11.9 Lymphocytes # (Auto) 2.9 Monocytes # (Auto) 0.8 Eosinophils # (Auto) 0.3 Basophils # (Auto) 0.2 CBC Comment DIFF FINAL Differential Comment Blood Urea Nitrogen 7 Creatinine 0.95 Random Glucose 272 Total Protein 8.7 Albumin 3.7 Calcium Level 10.3 Alkaline Phosphatase 127 Aspartate Amino Transf (AST/SGOT) 24 Alanine Aminotransferase (ALT/SGPT) 27 Total Bilirubin 1.0 Sodium Level 134 Potassium Level 4.2 Chloride Level 101 Carbon Dioxide Level 19.7 Anion Gap 13 Estimat Glomerular Filtration Rate 62 Lipase 207 Urine Color DARK-YELLOW Urine Turbidity CLEAR Urine pH 7.5 Urine Specific [place] 1.028 Urine Protein 30 Urine Glucose (UA) 1000 Urine Ketones 10 Urine Occult Blood NEG Urine Nitrite NEG Urine Bilirubin NEG Urine Urobilinogen LESS THAN 2.0 Urine Leukocyte Esterase NEG Urine RBC LESS THAN 1 Urine WBC 2 Urine Squamous Epithelial Cells 1 Urine Bacteria OCC Urine Hyaline Casts 43 Urine Mucus FEW Microscopic Urinalysis Comment CULT NOT INDICATED Result Diagram: 05/04/17 1448 05/04/17 1448 Caprini VTE Risk Assessment Caprini VTE Risk Assessment: No/Low Risk (score <= 1) Caprini Risk Assessment Model Point Value = 1 Point Value = 2 Point Value = 3 Point Value = 5 Age 41-60 Minor surgery BMI > 25 kg/m2 Swollen legs Varicose veins or History of unexplained or recurrent spontaneous Oral contraceptives or hormone replacement Sepsis (< 1 month) Serious lung disease, including pneumonia (< 1 month) Abnormal pulmonary function Acute myocardial infarction Congestive heart failure (< 1 month) History of inflammatory bowel disease Medical patient at bed rest Age 61-74 Arthroscopic surgery Major open surgery (> 45 min) Laparoscopic surgery (> 45 min) Malignancy Confined to bed (> 72 hours) Immobilizing plaster cast Central venous access Age >= 75 History of VTE Family history of VTE Factor V Leiden Prothrombin [id number] Lupus anticoagulant Anticardiolipin antibodies Elevated serum homocysteine Heparin-induced thrombocytopenia Other congenital or acquired thrombophilia Stroke (< 1 month) Elective arthroplasty Hip, pelvis, or leg fracture Acute spinal cord injury (< 1 month) Prophylaxis Regimen Total Risk Factor Score Risk Level Prophylaxis Regimen 0-1 Low Early ambulation 2 Moderate Order ONE of the following: *Sequential Compression Device (SCD) *Heparin 5000 units SQ BID 3-4 Higher Order ONE of the following medications: *Heparin 5000 units SQ TID *Enoxaparin/Lovenox 40 mg SQ daily (WT < 150 kg, CrCl > 30 mL/min) *Enoxaparin/Lovenox 30 mg SQ daily (WT < 150 kg, CrCl > 10-29 mL/min) *Enoxaparin/Lovenox 30 mg SQ BID (WT < 150 kg, CrCl > 30 mL/min) AND/OR *Sequential Compression Device (SCD) 5 or more Highest Order ONE of the following medications: *Heparin 5000 units SQ TID (Preferred with Epidurals) *Enoxaparin/Lovenox 40 mg SQ daily (WT < 150 kg, CrCl > 30 mL/min) *Enoxaparin/Lovenox 30 mg SQ daily (WT < 150 kg, CrCl > 10-29 mL/min) *Enoxaparin/Lovenox 30 mg SQ BID (WT < 150 kg, CrCl > 30 mL/min) AND *Sequential Compression Device (SCD) Assessment and Plan Problem List: (1) Intractable abdominal pain ICD Codes: R10.9 - Unspecified abdominal pain Status: Acute Plan: Patient is 51 yo female with ongoing problems with abdomen pain. This is her third admission. She was [place] [facility] [place] then 04/13-05/02 after transfer to [facility]. She initially complained of pain LUQ and diarrhea. The abd pain had been constant for 6 weeks, associated with nausea and was worse after eating. She had occasional vomiting , loose stools, and 12 lb weight loss.Pt had an outpt evaluation with GI for the above complaints and had a CT Abd/pelvis which was negative and was given Reglan without improvement. Pt was then admitted to [facility] [place] 03[place] with these same complaints and again had a negative CT scan without evidence of obstruction. She had NGT placed and bowel rest. SBFT was negative as well. She was sent home on EES but presented back to GI with continued issues with abd pain, diarrhea, N/V. Pt was admitted to [facility] [place] further workup on 04/13. Pt underwent EGD/colonoscopy (04/14) with Dr. Luciano --> gastritis, esophagitis ( ?julia esophagitis), hiatal hernia, poor prep, small internal hemorrhoids. Pathology consistent with chemical gastropathy, moderate to severe acute suppurative esophagitis (fungal stain is negative and viral inclusions are not observed), biopsy from descending colon with features suggestive of collagenous colitis. 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 She was transferred to [facility] for surgery. Pt underwent division of median arcuate ligament today with Dr. Soares and Dr. 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 No upper abdominal adhesions. NGT removed and was tolerating liquids. Diet was advanced to soft per GS on but pt having more abd bloating/discomfort and nausea on 04/26 KUB on 04/26 -->Grossly distended stomach with mildly distended gas-filled small bowel. Colon is normal in caliber. This is a nonspecific pattern. Pt felt to have some degree of gastroparesis contributing to her symptoms but in light on her recent surgery and narcotic use it is difficult to accurately test for this. Pt had previously been tried on Reglan and EES without much relief. EGD (04/28/17) performed by Dr. Leavitt- BOTOX injection 100 IU. Injected into pylorus NG tube placed by anesthesia. There was fair amount of residual food in stomach. KUB (04/29/17) --> gastric decompression, NGT placement Trial of Bethanechol and Trial of EES were given. she was tolerating full liquid diet at time of d/c. - Prednisone 20 mg daily started for collagenous colitis and stopped at time of d/c. After d/c home on 05/02 pt says she was having a different upper abdomen pain that was constant and radiating to back. she has not been eating much but admits that eating is not making the pain worse. she has moved her bowels after d/c. denies any fever or chills and no vomiting. When I arrive pt seems anxious and c/o 8/10 pain after ED gave dilaudid. She feels it is not her typical GP pain. She might just have persistent surgical pain. pt was using iv dilaudid and norco up until time of her d/c home. reconsult her sql manager to assist with her abdomen pain sx management. CT a/p reviewed and no obvious complication to recent surgery IVF started for dehydration prn anti emetic and pain meds ordered recheck labs in AM dvt prophylaxis (2) Dehydration ICD Codes: E86.0 - Dehydration Status: Acute (3) Diabetes ICD Codes: E11.9 - Type 2 diabetes mellitus without complications Status: Chronic (4) Gastroparesis ICD Codes: K31.84 - Gastroparesis Status: Chronic (5) Depression ICD Codes: F32.9 - Major depressive disorder, single episode, unspecified Status: Chronic Angel Luis Mccracken MD May 04, 2017 20:08
[2017-05-04] MEDS: INSULIN ASPART SUPPLEMENTAL SCALE SQ SCH (21:00)
[2017-05-04] MEDS ORDERED: CARVEDILOL 6.25 MG TAB PO SCH (21:00)
[2017-05-04 21:10] VITALS: BP 94/48; PULSE 92; RESP 18; TEMP 98; O2SAT 97
[2017-05-04] MEDS: HYDROmorphone HCL PF 1 MG/ML VIAL IV PUSH PRN (22:55)
[2017-05-04] MEDS: SIMETHICONE 125 MG CHEWABLE TAB PO SCH (23:35)
[2017-05-04] MEDS: BETHANECHOL CHL 25 MG TAB PO SCH (23:35)
[2017-05-04] MEDS: SODIUM CHLOR 0.9% 1000 ML INJ 1,000 ML IV SCH (23:45)
[2017-05-05] VITALS (11 sets, daily range): BP systolic 115–140; BP diastolic 58–77; PULSE 80–93; RESP 18–20; TEMP 97.5–98.7; O2SAT 94–97
[2017-05-05] MEDS: HYDROmorphone HCL PF 1 MG/ML VIAL IV PUSH PRN ×5 (03:10→23:28)
[2017-05-05] MEDS: SIMETHICONE 125 MG CHEWABLE TAB PO SCH ×3 (05:54→20:37)
[2017-05-05] MEDS: BETHANECHOL CHL 25 MG TAB PO SCH ×3 (05:54→20:32)
[2017-05-05 06:59] LABS: AUTOMATED NEUTROPHIL # 5.8 TH/MM3 (1.8-7.7); BASOPHIL # 0.2 TH/MM3 (0-0.2); BASOPHIL % 1.9 % (0.0-2.0); EOSINOPHIL # 0.4 TH/MM3 (0-0.4); EOSINOPHIL % 3.8 % (0.0-4.0); HEMATOCRIT 39.1 % (35.0-46.0); HEMO FLAGS DIFF FINAL; LYMPH % 34.4 % (9.0-44.0); LYMPHOCYTE # 3.7 TH/MM3 (1.0-4.8); MEAN CELL VOLUME 88.7 FL (80.0-100.0); MEAN CORPUSCULAR HEMOGLOBIN 29.1 PG (27.0-34.0); MEAN CORPUSCULAR HGB CONC 32.8 % (32.0-36.0); MONO % 6.4 % (0.0-8.0); NEUT % 53.5 % (16.0-70.0); PLATELET COUNT 318 TH/MM3 (150-450); RED BLOOD COUNT 4.41 MIL/MM3 (4.00-5.30); RED CELL DISTRIBUTION WIDTH 13.4 % (11.6-17.2); WHITE BLOOD COUNT 10.8 TH/MM3 (4.0-11.0)
[2017-05-05 07:12] LABS: POTASSIUM 3.9 MEQ/L (3.5-5.1)
[2017-05-05] MEDS: DULoxetine HCl DR 60 MG CAP PO SCH (08:16)
[2017-05-05] MEDS: PREGABALIN 75 MG CAP PO SCH ×3 (08:16→18:01)
[2017-05-05] MEDS: CARVEDILOL 6.25 MG TAB PO SCH ×2 (08:16→20:33)
[2017-05-05] MEDS: POTASSIUM CHLORIDE 20 MEQ CONTROLLED RELEASE TAB PO SCH (08:16)
[2017-05-05] MEDS: ERYTHROMYCIN EC 250 MG TABEC PO SCH ×3 (08:27→18:01)
[2017-05-05] MEDS: INSULIN ASPART SUPPLEMENTAL SCALE SQ SCH ×4 (08:29→20:31)
[2017-05-05] MEDS: SODIUM CHLOR 0.9% 1000 ML INJ 1,000 ML IV SCH ×2 (08:31→18:16)
--- NOTE | 2017-05-05 08:32 | HHI.PR ---
Subjective Remarks Patient resting in bed A&O reports she feels better now that she has had the pain medication patient returned to hospital because of, "gnawing," pain through out the upper abdomen patient also reports minimal PO intake due to fear of N/V Objective Vitals Vital Signs Date Time Temp Pulse Resp B/P (MAP) Pulse Ox O2 Delivery O2 Flow Rate FiO2 05/05/17 08:00 98.7 82 18 130/71 (90) 95 05/05/17 07:20 81 05/05/17 04:31 98.3 84 18 124/58 (80) 94 05/05/17 04:06 80 05/05/17 00:44 97.8 90 18 115/58 (77) 95 05/05/17 00:36 90 05/04/17 21:10 98.0 92 18 94/48 (63) 97 05/04/17 20:02 05/04/17 19:03 97 18 131/74 (93) 99 Room Air 05/04/17 18:29 96 18 130/66 (87) 98 Room Air 05/04/17 17:14 95 16 143/84 (103) 98 Room Air 05/04/17 14:10 98.5 132 30 175/107 (129) 98 Result Diagram: 05/05/17 0610 05/05/17 0610 Other Results Laboratory Tests Test 05/04/17 14:48 05/04/17 18:45 05/05/17 06:10 White Blood Count 16.0 TH/MM3 10.8 TH/MM3 Red Blood Count 5.74 MIL/MM3 4.41 MIL/MM3 Hemoglobin 16.5 GM/DL 12.8 GM/DL Hematocrit 49.7 % 39.1 % Mean Corpuscular Volume 86.6 FL 88.7 FL Mean Corpuscular Hemoglobin 28.7 PG 29.1 PG Mean Corpuscular Hemoglobin Concent 33.2 % 32.8 % Red Cell Distribution Width 13.2 % 13.4 % Platelet Count 479 TH/MM3 318 TH/MM3 Mean Platelet Volume 7.0 FL 6.9 FL Neutrophils (%) (Auto) 73.9 % 53.5 % Lymphocytes (%) (Auto) 18.0 % 34.4 % Monocytes (%) (Auto) 5.2 % 6.4 % Eosinophils (%) (Auto) 1.8 % 3.8 % Basophils (%) (Auto) 1.1 % 1.9 % Neutrophils # (Auto) 11.9 TH/MM3 5.8 TH/MM3 Lymphocytes # (Auto) 2.9 TH/MM3 3.7 TH/MM3 Monocytes # (Auto) 0.8 TH/MM3 0.7 TH/MM3 Eosinophils # (Auto) 0.3 TH/MM3 0.4 TH/MM3 Basophils # (Auto) 0.2 TH/MM3 0.2 TH/MM3 CBC Comment DIFF FINAL DIFF FINAL Differential Comment Blood Urea Nitrogen 7 MG/DL 11 MG/DL Creatinine 0.95 MG/DL 0.72 MG/DL Random Glucose 272 MG/DL 240 MG/DL Total Protein 8.7 GM/DL Albumin 3.7 GM/DL Calcium Level 10.3 MG/DL 8.5 MG/DL Alkaline Phosphatase 127 U/L Aspartate Amino Transf (AST/SGOT) 24 U/L Alanine Aminotransferase (ALT/SGPT) 27 U/L Total Bilirubin 1.0 MG/DL Sodium Level 134 MEQ/L 136 MEQ/L Potassium Level 4.2 MEQ/L 3.9 MEQ/L Chloride Level 101 MEQ/L 106 MEQ/L Carbon Dioxide Level 19.7 MEQ/L 16.0 MEQ/L Anion Gap 13 MEQ/L 14 MEQ/L Estimat Glomerular Filtration Rate 62 ML/MIN 86 ML/MIN Lipase 207 U/L Urine Color DARK-YELLOW Urine Turbidity CLEAR Urine pH 7.5 Urine Specific [place] 1.028 Urine Protein 30 mg/dL Urine Glucose (UA) 1000 mg/dL Urine Ketones 10 mg/dL Urine Occult Blood NEG Urine Nitrite NEG Urine Bilirubin NEG Urine Urobilinogen LESS THAN 2.0 MG/DL Urine Leukocyte Esterase NEG Urine RBC LESS THAN 1 /hpf Urine WBC 2 /hpf Urine Squamous Epithelial Cells 1 /hpf Urine Bacteria OCC /hpf Urine Hyaline Casts 43 /lpf Urine Mucus FEW /lpf Microscopic Urinalysis Comment CULT NOT INDICATED Imaging Last Impressions Abdomen/Pelvis CT 05/04/17 9289 Signed Impressions: Service Date/Time: Thursday, May 04, 2017 17:48 - CONCLUSION: 1. Unremarkable bowel gas pattern with no inflammatory change or obstruction. 2. Mild hepatic steatosis. 3. Status post cholecystectomy. Rolly Padilla MD Objective Remarks General: A&O in no acute distress Cardiac: heart reg Respiratory: lung cta GI: abd upper abdomen tender/no rebound tenderness. Normoactive bs present. laparoscopic surgical scars healing. Ext: no edema Procedures Panendoscopy with botox injection 04/28/17- Dr. Leavitt Robotic assisted laparoscopic division of median arcuate ligament 04/22/17 Dr. Soares A/P Problem List: (1) Intractable abdominal pain ICD Codes: R10.9 - Unspecified abdominal pain Status: Acute Plan: Patient is 51 yo female with ongoing problems with abdomen pain. This is her third admission. She was originally admitted to [facility] from 03/27-04/03 then 04/13-05/02 after transfer to [facility]. She initially complained of pain LUQ and diarrhea. The abd pain had been constant for 6 weeks, associated with nausea and was worse after eating. She had occasional vomiting , loose stools, and 12 lb weight loss.Pt had an outpt evaluation with GI for the above complaints and had a CT Abd/pelvis which was negative and was given Reglan without improvement. Pt was then admitted to [facility] in 03/2017 with these same complaints and again had a negative CT scan without evidence of obstruction. She had NGT placed and bowel rest. SBFT was negative as well. She was sent home on EES but presented back to GI with continued issues with abd pain, diarrhea, N/V. Pt was admitted to [facility] for further workup on 04/13. Pt underwent EGD/colonoscopy (04/14) with Dr. Luciano --> gastritis, esophagitis ( ?julia esophagitis), hiatal hernia, poor prep, small internal hemorrhoids. Pathology consistent with chemical gastropathy, moderate to severe acute suppurative esophagitis (fungal stain is negative and viral inclusions are not observed), biopsy from descending colon with features suggestive of collagenous colitis. 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 She was transferred to [facility] for surgery. Pt underwent division of median arcuate ligament today with Dr. Soares and Dr. 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 No upper abdominal adhesions. NGT removed and was tolerating liquids. Diet was advanced to soft per GS on but pt having more abd bloating/discomfort and nausea on 04/26 KUB on 04/26 -->Grossly distended stomach with mildly distended gas-filled small bowel. Colon is normal in caliber. This is a nonspecific pattern. Pt felt to have some degree of gastroparesis contributing to her symptoms but in light on her recent surgery and narcotic use it is difficult to accurately test for this. Pt had previously been tried on Reglan and EES without much relief. EGD (04/28/17) performed by Dr. Leavitt- BOTOX injection 100 IU. Injected into pylorus NG tube placed by anesthesia. There was fair amount of residual food in stomach. KUB (04/29/17) --> gastric decompression, NGT placement Trial of Bethanechol and Trial of EES were given. she was tolerating full liquid diet at time of d/c. - Prednisone 20 mg daily started for collagenous colitis and stopped at time of d/c. After d/c home on 05/02 pt says she was having a different upper abdomen pain that was constant and radiating to back. she has not been eating much but admits that eating is not making the pain worse. she has moved her bowels after d/c. denies any fever or chills and no vomiting. When I arrive pt seems anxious and c/o 8/10 pain after ED gave dilaudid. She feels it is not her typical GP pain. reconsult her mini shifter to assist with her abdomen pain sx management. CT a/p reviewed and no obvious complication to recent surgery IVF started for dehydration prn anti emetic and pain meds ordered labs reviewed patient's appears to have been hemoconcentrated on admission accu checks ACHS with medium dose SSI dvt prophylaxis with SCDs (2) Dehydration ICD Codes: E86.0 - Dehydration Status: Acute Plan: see above (3) Diabetes ICD Codes: E11.9 - Type 2 diabetes mellitus without complications Status: Chronic Plan: see above (4) Gastroparesis ICD Codes: K31.84 - Gastroparesis Status: Chronic Plan: see above (5) Depression ICD Codes: F32.9 - Major depressive disorder, single episode, unspecified Status: Chronic Plan: se above Assessment and Plan Patient examined. Assessment and plan formulated with Lorie Sesay PA-C. I agree with the above. improved. probably still with surgical pain. pt was getting norco/dilaudid up to time of d/c. GI to see. stool studies reordered. might need to d/c on a short course of prn norco. Lorie Sesay May 05, 2017 08:32 Angel Luis Mccracken MD May 05, 2017 12:45
--- NOTE | 2017-05-05 11:17 | PD.CONS ---
HPI History of Present Illness This is a 51 year old female with hx gastroparesis who presented with abd pain and was referred to ER from Dr Luciano's office. SHe is having upper quadrant pain. She was d/c thursday and still had some pain at that time. NO exacerbating, relieving, or associated factors, pain is constant. SHe says this is different from her gastroparesis pain. SHe has nausea no vomiting. SHe is having loose stool periodically, once today, once 2 days ago. SHe is passing gas. NO vomiting, blood in stool, tarry stool, fevers. SHe had EGD/ colonoscopy 04/14/[address] Luciano found gastritis, esophagitis, hiatal hernia, poor prep, collagenous colitis. SHe is s/p division median arcuate ligament . 04/28/17 she had EGD with botox with Dr Leavitt. She feels she had some relief with the botox. She has tried reglan and EES no relief. (Lana Almaraz) PFSH Past Medical History HTN neuropathy gastroparesis HLD Past Surgical History division median arcuate ligament cholecystectomy c section x 2 (Lana Almaraz) Coded Allergies: Sulfa (Sulfonamide Antibiotics) (Unverified Allergy, Severe, BREATHING DIFFICULTIES, 05/04/17) gabapentin (Verified Allergy, Severe, AMNESIA, 05/04/17) Family History none Social History no ETOH no tobacco no illicit drugs (Lana Almaraz) Review of Systems Constitutional: DENIES: Fever Eyes: DENIES: Blurred vision Ears, nose, mouth, throat: DENIES: Hearing loss Respiratory: DENIES: Cough Cardiovascular: DENIES: Chest pain Gastrointestinal: COMPLAINS OF: Abdominal pain, Diarrhea, Nausea, DENIES: Black stools, Bloody stools, Constipation, Vomiting, Hematemesis Genitourinary: DENIES: Hematuria Musculoskeletal: DENIES: Joint Swelling Integumentary: DENIES: Rash Hematologic/lymphatic: DENIES: Bruising Neurologic: DENIES: Abnormal gait Psychiatric: DENIES: Confusion (Lana Almaraz) GI Exam Vitals I&O Vital Signs Date Time Temp Pulse Resp B/P (MAP) Pulse Ox O2 Delivery O2 Flow Rate FiO2 05/05/17 08:25 18 05/05/17 08:00 98.7 82 18 130/71 (90) 95 05/05/17 07:20 81 05/05/17 04:31 98.3 84 18 124/58 (80) 94 05/05/17 04:06 80 05/05/17 00:44 97.8 90 18 115/58 (77) 95 05/05/17 00:36 90 05/04/17 21:10 98.0 92 18 94/48 (63) 97 05/04/17 20:02 05/04/17 19:03 97 18 131/74 (93) 99 Room Air 05/04/17 18:29 96 18 130/66 (87) 98 Room Air 05/04/17 17:14 95 16 143/84 (103) 98 Room Air 05/04/17 14:10 98.5 132 30 175/107 (129) 98 I/O 05/04/17 05/04/17 05/04/17 05/05/17 05/05/17 05/05/17 07:00 15:00 23:00 07:00 15:00 23:00 Intake Total 1000 ml 250 ml Output Total 500 ml Balance 1000 ml -250 ml Intake Oral 250 ml IV Total 1000 ml Output Urine Total 500 ml # Voids 3 Imaging Last Impressions Abdomen/Pelvis CT 05/04/17 1619 Signed Impressions: Service Date/Time: Thursday, May 04, 2017 17:48 - CONCLUSION: 1. Unremarkable bowel gas pattern with no inflammatory change or obstruction. 2. Mild hepatic steatosis. 3. Status post cholecystectomy. Rolly Padilla MD Laboratory Test 05/04/17 14:48 05/04/17 18:45 05/05/17 06:10 White Blood Count 16.0 TH/MM3 10.8 TH/MM3 Red Blood Count 5.74 MIL/MM3 4.41 MIL/MM3 Hemoglobin 16.5 GM/DL 12.8 GM/DL Hematocrit 49.7 % 39.1 % Mean Corpuscular Volume 86.6 FL 88.7 FL Mean Corpuscular Hemoglobin 28.7 PG 29.1 PG Mean Corpuscular Hemoglobin Concent 33.2 % 32.8 % Red Cell Distribution Width 13.2 % 13.4 % Platelet Count 479 TH/MM3 318 TH/MM3 Mean Platelet Volume 7.0 FL 6.9 FL Neutrophils (%) (Auto) 73.9 % 53.5 % Lymphocytes (%) (Auto) 18.0 % 34.4 % Monocytes (%) (Auto) 5.2 % 6.4 % Eosinophils (%) (Auto) 1.8 % 3.8 % Basophils (%) (Auto) 1.1 % 1.9 % Neutrophils # (Auto) 11.9 TH/MM3 5.8 TH/MM3 Lymphocytes # (Auto) 2.9 TH/MM3 3.7 TH/MM3 Monocytes # (Auto) 0.8 TH/MM3 0.7 TH/MM3 Eosinophils # (Auto) 0.3 TH/MM3 0.4 TH/MM3 Basophils # (Auto) 0.2 TH/MM3 0.2 TH/MM3 CBC Comment DIFF FINAL DIFF FINAL Differential Comment Blood Urea Nitrogen 7 MG/DL 11 MG/DL Creatinine 0.95 MG/DL 0.72 MG/DL Random Glucose 272 MG/DL 240 MG/DL Total Protein 8.7 GM/DL Albumin 3.7 GM/DL Calcium Level 10.3 MG/DL 8.5 MG/DL Alkaline Phosphatase 127 U/L Aspartate Amino Transf (AST/SGOT) 24 U/L Alanine Aminotransferase (ALT/SGPT) 27 U/L Total Bilirubin 1.0 MG/DL Sodium Level 134 MEQ/L 136 MEQ/L Potassium Level 4.2 MEQ/L 3.9 MEQ/L Chloride Level 101 MEQ/L 106 MEQ/L Carbon Dioxide Level 19.7 MEQ/L 16.0 MEQ/L Anion Gap 13 MEQ/L 14 MEQ/L Estimat Glomerular Filtration Rate 62 ML/MIN 86 ML/MIN Lipase 207 U/L Urine Color DARK-YELLOW Urine Turbidity CLEAR Urine pH 7.5 Urine Specific [place] 1.028 Urine Protein 30 mg/dL Urine Glucose (UA) 1000 mg/dL Urine Ketones 10 mg/dL Urine Occult Blood NEG Urine Nitrite NEG Urine Bilirubin NEG Urine Urobilinogen LESS THAN 2.0 MG/DL Urine Leukocyte Esterase NEG Urine RBC LESS THAN 1 /hpf Urine WBC 2 /hpf Urine Squamous Epithelial Cells 1 /hpf Urine Bacteria OCC /hpf Urine Hyaline Casts 43 /lpf Urine Mucus FEW /lpf Microscopic Urinalysis Comment CULT NOT INDICATED Physical Examination HEENT: PERRL; normocephalic; atraumatic; no jaundice. CHEST: CTA CARDIAC: RRR. ABDOMEN: Soft, nondistended, upper quadrant TTP; no hepatosplenomegaly; bowel sounds are present in all four quadrants. foul smelling stool EXTREMITIES: No clubbing, cyanosis, or edema. SKIN: Normal; no rash; no jaundice. SOCIAL WORK MSW: No focal deficits; alert and oriented times three. (Lana Almaraz) Assessment and Plan Plan ASSESSMENT - upper quadrant pain, nausea, loose foul stool - unclear etiology. enteritis? CT unremarkable. hx gastroparesis which she differentiates from this discomfort. s/p division median arcuate ligament, EGD with botox 04/28, EGD/colonoscopy 04/14 found collagenous colitis, poor prep, hiatal hernia, esophagitis. hx gastroparesis with some relief from botox. was d/c recently on steroids. wbc was elevated 16 on admission, now WNL. will get stool cx. tolerating liquid diet. PLAN - stool cx - c diff - could consider repeating colonoscopy if stool cx neg - monitor labs - supportive care - further recs to follow This pt seen by myself and Dr Luciano and this note is written on her behalf (Lana Almaraz) Physician Comments seen, examined agree with above stool studies trial of Rifaximin 550 mg po tid trial of Creon with meals and snacks heavy metal (Savana Luciano MD) Lana Almaraz May 05, 2017 11:17 Savana Luciano MD May 05, 2017 19:57
[2017-05-05] MEDS: ACETAMINOPHEN/HYDROcodone 325 MG/10 MG TAB PO PRN ×3 (12:04→22:36)
[2017-05-05 13:25] LABS: C. DIFF EPI 027 PRESUMPTIVE NEGATIVE (NEGATIVE)
[2017-05-05] MEDS: PANTOPRAZOLE SODIUM 40 MG VIAL IV PUSH SCH (20:32)
[2017-05-06] VITALS (13 sets, daily range): BP systolic 117–157; BP diastolic 62–84; PULSE 78–94; RESP 16–20; TEMP 97.9–98.7; O2SAT 95–96
[2017-05-06] MEDS: SIMETHICONE 125 MG CHEWABLE TAB PO SCH ×3 (07:04→20:53)
[2017-05-06] MEDS: BETHANECHOL CHL 25 MG TAB PO SCH ×3 (07:05→20:53)
[2017-05-06] MEDS: HYDROmorphone HCL PF 1 MG/ML VIAL IV PUSH PRN ×2 (07:21)
--- NOTE | 2017-05-06 08:22 | HHI.PR ---
Subjective Remarks Pt is still having a lot of pain in the upper abdomen, more so on the left side. She had "explosive" diarrhea last night, one episode Some nausea but no vomiting Objective Vitals Vital Signs Date Time Temp Pulse Resp B/P (MAP) Pulse Ox O2 Delivery O2 Flow Rate FiO2 05/06/17 07:32 98.4 91 19 138/73 (94) 96 05/06/17 03:56 81 05/06/17 03:13 98.4 78 19 133/65 (87) 96 05/06/17 00:41 98.4 81 16 142/77 (98) 96 05/06/17 00:25 80 05/05/17 20:14 97.5 86 18 140/73 (95) 97 05/05/17 20:00 93 05/05/17 15:40 97.6 83 18 138/77 (97) 96 05/05/17 15:40 85 05/05/17 14:37 18 05/05/17 13:04 18 05/05/17 12:00 98.1 81 20 129/60 (83) 95 05/05/17 11:35 85 05/05/17 08:25 18 Result Diagram: 05/05/17 0610 05/05/17 0610 Other Results Laboratory Tests Test 05/04/17 14:48 05/04/17 18:45 05/05/17 06:10 05/05/17 11:16 White Blood Count 16.0 TH/MM3 10.8 TH/MM3 Red Blood Count 5.74 MIL/MM3 4.41 MIL/MM3 Hemoglobin 16.5 GM/DL 12.8 GM/DL Hematocrit 49.7 % 39.1 % Mean Corpuscular Volume 86.6 FL 88.7 FL Mean Corpuscular Hemoglobin 28.7 PG 29.1 PG Mean Corpuscular Hemoglobin Concent 33.2 % 32.8 % Red Cell Distribution Width 13.2 % 13.4 % Platelet Count 479 TH/MM3 318 TH/MM3 Mean Platelet Volume 7.0 FL 6.9 FL Neutrophils (%) (Auto) 73.9 % 53.5 % Lymphocytes (%) (Auto) 18.0 % 34.4 % Monocytes (%) (Auto) 5.2 % 6.4 % Eosinophils (%) (Auto) 1.8 % 3.8 % Basophils (%) (Auto) 1.1 % 1.9 % Neutrophils # (Auto) 11.9 TH/MM3 5.8 TH/MM3 Lymphocytes # (Auto) 2.9 TH/MM3 3.7 TH/MM3 Monocytes # (Auto) 0.8 TH/MM3 0.7 TH/MM3 Eosinophils # (Auto) 0.3 TH/MM3 0.4 TH/MM3 Basophils # (Auto) 0.2 TH/MM3 0.2 TH/MM3 CBC Comment DIFF FINAL DIFF FINAL Differential Comment Blood Urea Nitrogen 7 MG/DL 11 MG/DL Creatinine 0.95 MG/DL 0.72 MG/DL Random Glucose 272 MG/DL 240 MG/DL Total Protein 8.7 GM/DL Albumin 3.7 GM/DL Calcium Level 10.3 MG/DL 8.5 MG/DL Alkaline Phosphatase 127 U/L Aspartate Amino Transf (AST/SGOT) 24 U/L Alanine Aminotransferase (ALT/SGPT) 27 U/L Total Bilirubin 1.0 MG/DL Sodium Level 134 MEQ/L 136 MEQ/L Potassium Level 4.2 MEQ/L 3.9 MEQ/L Chloride Level 101 MEQ/L 106 MEQ/L Carbon Dioxide Level 19.7 MEQ/L 16.0 MEQ/L Anion Gap 13 MEQ/L 14 MEQ/L Estimat Glomerular Filtration Rate 62 ML/MIN 86 ML/MIN Lipase 207 U/L Urine Color DARK-YELLOW Urine Turbidity CLEAR Urine pH 7.5 Urine Specific [place] 1.028 Urine Protein 30 mg/dL Urine Glucose (UA) 1000 mg/dL Urine Ketones 10 mg/dL Urine Occult Blood NEG Urine Nitrite NEG Urine Bilirubin NEG Urine Urobilinogen LESS THAN 2.0 MG/DL Urine Leukocyte Esterase NEG Urine RBC LESS THAN 1 /hpf Urine WBC 2 /hpf Urine Squamous Epithelial Cells 1 /hpf Urine Bacteria OCC /hpf Urine Hyaline Casts 43 /lpf Urine Mucus FEW /lpf Microscopic Urinalysis Comment CULT NOT INDICATED Stool C. difficile Toxin (PCR) NEGATIVE Stl C. difficile Toxin Epiderm 027 PRESUMPTIVE NEGATIVE Imaging Last Impressions Abdomen/Pelvis CT 05/04/17 1619 Signed Impressions: Service Date/Time: Thursday, May 04, 2017 17:48 - CONCLUSION: 1. Unremarkable bowel gas pattern with no inflammatory change or obstruction. 2. Mild hepatic steatosis. 3. Status post cholecystectomy. Rolly Padilla MD Objective Remarks General: A&O x3, appears to be in pain Cardiac: Regular Respiratory: CTA GI: Upper abdomen tender and bloated, more on the left side,no rebound tenderness. Normoactive BS present. laparoscopic surgical scars healing. Ext: No edema Procedures Panendoscopy with botox injection 04/28/17- Dr. Leavitt Robotic assisted laparoscopic division of median arcuate ligament 04/22/17 Dr. Soares A/P Problem List: (1) Intractable abdominal pain ICD Codes: R10.9 - Unspecified abdominal pain Status: Acute Plan: - Patient is 51 yo female with ongoing problems with abdomen pain. This is her third admission. - She was originally admitted to [facility] from 03/27-04/03 then 04/13-05/02 after transfer to [facility]. - She initially complained of pain LUQ and diarrhea. The abd pain had been constant for 6 weeks, associated with nausea and was worse after eating. She had occasional vomiting , loose stools, and 12 lb weight loss.Pt had an outpt evaluation with GI for the above complaints and had a CT Abd/pelvis which was negative and was given Reglan without improvement. - Pt was then admitted to [facility] in 03/2017 with these same complaints and again had a negative CT scan without evidence of obstruction. She had NGT placed and bowel rest. SBFT was negative as well. She was sent home on EES but presented back to GI with continued issues with abd pain, diarrhea, N/V. - Pt was admitted to [facility] for further workup on 04/13. - Pt underwent EGD/colonoscopy (04/14) with Dr. Luciano --> gastritis, esophagitis (?julia esophagitis), hiatal hernia, poor prep, small internal hemorrhoids. Pathology consistent with chemical gastropathy, moderate to severe acute suppurative esophagitis (fungal stain is negative and viral inclusions are not observed), biopsy from descending colon with features suggestive of collagenous colitis. 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 - She was transferred to [facility] for surgery. - Pt underwent division of median arcuate ligament today with Dr. Soares and Dr. 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 No upper abdominal adhesions. NGT removed and was tolerating liquids. Diet was advanced to soft per GS on but pt having more abd bloating/discomfort and nausea on 04/26 - KUB on 04/26 -->Grossly distended stomach with mildly distended gas-filled small bowel. Colon is normal in caliber. This is a nonspecific pattern. - Pt felt to have some degree of gastroparesis contributing to her symptoms but in light on her recent surgery and narcotic use it is difficult to accurately test for this. Pt had previously been tried on Reglan and EES without much relief. - EGD (04/28/17) performed by Dr. Leavitt- BOTOX injection 100 IU. Injected into pylorus NG tube placed by anesthesia. There was fair amount of residual food in stomach. KUB (04/29/17) --> gastric decompression, NGT placement - Trial of Bethanechol and Trial of EES were given. she was tolerating full liquid diet at time of d/c. - Prednisone 20 mg daily started for collagenous colitis and stopped at time of d/c. - After d/c home on 05/02 pt says she was having a different upper abdomen pain that was constant and radiating to back. She has not been eating much but admits that eating is not making the pain worse. She moved her bowels after d/ c. Denies any fever or chills and no vomiting. She might just have persistent surgical pain. pt was using iv Dilaudid and [place] up until time of her d/c home. - GI Following - Xifaxan and Creon added to regimen - Stools for C. diff were negative. - CT Abd/pelvis reviewed and no obvious complication to recent surgery - Pt still with increased pain and bloating in the upper abdomen, check KUB today - Liquid diet as tolerated - Cont. IVF - PRN anti emetic and pain meds ordered (try to minimize pain meds) - Supportive care - DVT prophylaxis (2) Dehydration ICD Codes: E86.0 - Dehydration Status: Acute (3) Diabetes ICD Codes: E11.9 - Type 2 diabetes mellitus without complications Status: Chronic (4) Gastroparesis ICD Codes: K31.84 - Gastroparesis Status: Chronic (5) Depression ICD Codes: F32.9 - Major depressive disorder, single episode, unspecified Status: Chronic Problem Qualifiers (1) Diabetes: Savanna Hemphill May 06, 2017 08:22
[2017-05-06] MEDS: PREGABALIN 75 MG CAP PO SCH ×3 (09:13→18:15)
[2017-05-06] MEDS: LIPASE/PROTEASE/AMYLASE (24,000/76,000/120,000) CAP PO SCH ×3 (09:14→18:15)
[2017-05-06] MEDS: ACETAMINOPHEN/HYDROcodone 325 MG/10 MG TAB PO PRN (09:14)
[2017-05-06] MEDS: DULoxetine HCl DR 60 MG CAP PO SCH (09:14)
[2017-05-06] MEDS: POTASSIUM CHLORIDE 20 MEQ CONTROLLED RELEASE TAB PO SCH (09:14)
[2017-05-06] MEDS: RIFAXIMIN 550 MG TAB PO SCH ×3 (09:15→18:15)
[2017-05-06] MEDS: CARVEDILOL 6.25 MG TAB PO SCH ×2 (09:15→20:51)
[2017-05-06] MEDS: ERYTHROMYCIN EC 250 MG TABEC PO SCH ×3 (09:15→16:59)
[2017-05-06] MEDS: SODIUM CHLOR 0.9% 1000 ML INJ 1,000 ML IV SCH ×3 (09:16→23:23)
[2017-05-06] MEDS: INSULIN ASPART SUPPLEMENTAL SCALE SQ SCH ×4 (09:20→20:52)
--- NOTE | 2017-05-06 09:50 | RADRPT ---
EXAM DATE/TIME: 05/06/2017 08:39 [facility] COMPARISON: ABDOMEN KUB ONLY, April 29, 2017, 8:44. INDICATIONS : Left upper quadrant pain with nausea & diarrhea. MEDICAL HISTORY : Hypercholesterolemia. Hypertension Gastroparesis. Gastritis. GERD. Arthritis. Diabetic. Sleep automatic log cut off sawyer ea. SURGICAL HISTORY : Cholecystectomy. section. Tubal ligation. Adhesions removed. ENCOUNTER: Initial ACUITY: 1 day PAIN SCORE: 7/10 LOCATION: Left upper quadrant abdomen FINDINGS: Surgical clips gallbladder fossa. Minimal gases distention of colon most suggestive of an ileus. Th ere is no free air. There is no significant small bowel dilatation. CONCLUSION: Probable ileus cecum dilated to 9 cm. Wenceslao Burk MD FACR on May 06, 2017 at 9:47 Board Certified Radiologist. This report was verified electronically.
[2017-05-06] MEDS ORDERED: ACETAMINOPHEN 1000 MG/100 ML 100 ML IV PRN (11:00)
[2017-05-06] MEDS ORDERED: METHYLNALTREXONE BROMIDE 12 MG/0.6 ML VIAL SQ ONE (14:00)
--- NOTE | 2017-05-06 16:45 | HHI.GIFU ---
Subjective Remarks Pt resting in bed in NAD. No BM today. had large liquid BM last night. + flatus. No n/v. Still with abd pain. (Lana Almaraz) Objective Vitals I&O Vital Signs Date Time Temp Pulse Resp B/P (MAP) Pulse Ox O2 Delivery O2 Flow Rate FiO2 05/06/17 16:00 98.3 82 20 145/79 (101) 96 05/06/17 12:26 97.9 94 16 157/84 (108) 95 05/06/17 11:30 89 05/06/17 08:00 89 05/06/17 07:32 98.4 91 19 138/73 (94) 96 05/06/17 03:56 81 05/06/17 03:13 98.4 78 19 133/65 (87) 96 05/06/17 00:41 98.4 81 16 142/77 (98) 96 05/06/17 00:25 80 05/05/17 20:14 97.5 86 18 140/73 (95) 97 05/05/17 20:00 93 I/O 05/05/17 05/05/17 05/05/17 05/06/17 05/06/17 05/06/17 07:00 15:00 23:00 07:00 15:00 23:00 Intake Total 250 ml 850 ml Output Total 500 ml Balance -250 ml 850 ml Intake Oral 250 ml IV Total 850 ml Output Urine Total 500 ml # Voids 3 3 # Bowel Movements 1 Laboratory Laboratory Tests Test 05/06/17 14:09 Date/Time Source Procedure Growth Status 05/05/17 18:00 Stool Stool Cryptosporidium Exam Pending Received 05/05/17 18:00 Stool Stool Giardia Antigen (SAJI) Pending Received Imaging Last Impressions Abdomen X-Ray 05/06/17 0000 Signed Impressions: Service Date/Time: Saturday, May 06, 2017 08:39 - CONCLUSION: Probable ileus cecum dilated to 9 cm. Wenceslao Burk MD FACR Abdomen/Pelvis CT 05/04/17 1619 Signed Impressions: Service Date/Time: Thursday, May 04, 2017 17:48 - CONCLUSION: 1. Unremarkable bowel gas pattern with no inflammatory change or obstruction. 2. Mild hepatic steatosis. 3. Status post cholecystectomy. Rolly Padilla MD Physical Exam HEENT: PERRL; normocephalic; atraumatic; no jaundice. CHEST: CTA CARDIAC: RRR ABDOMEN: mildly firm, distended, diffuse TTP; no hepatosplenomegaly; bowel sounds are present in all four quadrants. EXTREMITIES: No clubbing, cyanosis, or edema. SKIN: Normal; no rash; no jaundice. GROUP INSURANCE SPECIAL AGENT: No focal deficits; alert and oriented times three. (Lana Almaraz) Assessment and Plan Plan ASSESSMENT - upper quadrant pain, nausea, loose foul stool - ileus. CT unremarkable. hx gastroparesis which she differentiates from this discomfort. s/p division median arcuate ligament, EGD with botox 04/28, EGD/colonoscopy 04/14 found collagenous colitis, poor prep, hiatal hernia, esophagitis. hx gastroparesis with some relief from botox. was d/c recently on steroids. wbc was elevated 16 on admission, now WNL. stool cx neg so far, c diff neg KUB showing prob ileus s/p relistor. had lg liquid BM yesterday. + flatus PLAN - await rest of stool cx - cont creon - cont rifaximin - monitor labs - supportive care - further recs to follow This pt seen by myself and Dr Luciano and this note is written on her behalf (Lana Almaraz) Physician Comments seen, examined agree with above (Savana Luciano MD) Lana Almaraz May 06, 2017 16:45 Savana Luciano MD May 06, 2017 20:35
[2017-05-06] MEDS: traMADol HCL 50 MG TAB PO PRN ×2 (16:59→21:03)
[2017-05-06] MEDS: PANTOPRAZOLE SODIUM 40 MG VIAL IV PUSH SCH (20:51)
[2017-05-07] VITALS (7 sets, daily range): BP systolic 122–140; BP diastolic 55–83; PULSE 77–90; RESP 16–20; TEMP 96.8–98.5; O2SAT 95–97
[2017-05-07] MEDS: traMADol HCL 50 MG TAB PO PRN ×6 (01:32→23:43)
[2017-05-07] MEDS: SIMETHICONE 125 MG CHEWABLE TAB PO SCH ×3 (05:39→21:34)
[2017-05-07] MEDS: BETHANECHOL CHL 25 MG TAB PO SCH ×3 (05:41→21:34)
--- NOTE | 2017-05-07 06:08 | RADRPT ---
EXAM DATE/TIME: 05/07/2017 05:16 [facility] COMPARISON: No previous studies available for comparison. INDICATIONS : Abdominal pain. MEDICAL HISTORY : Hypercholesterolemia. Hypertension Gastroparesis. Gastritis. GERD. Arthritis. Diabetic. Sleep apnea. SURGICAL HISTORY : Cholecystectomy. section. Tubal ligation. Adhesions removed. ENCOUNTER: Subsequent ACUITY: 2 days PAIN SCORE: 7/10 LOCATION: all quadrants. FINDINGS: Supine view of the abdomen was performed. The abdominal bowel gas pattern is normal. No abnormal ma sses, calcifications, or organomegaly is seen. The osseous structures are unremarkable. CONCLUSION: Nonspecific abdomen appearance Harshil Hilton MD on May 07, 2017 at 6:06 Board Certified Radiologist. This report was verified electronically.
[2017-05-07 06:28] LABS: AUTOMATED NEUTROPHIL # 9.2 TH/MM3 (1.8-7.7); BASOPHIL # 0.1 TH/MM3 (0-0.2); BASOPHIL % 0.9 % (0.0-2.0); EOSINOPHIL # 0.4 TH/MM3 (0-0.4); EOSINOPHIL % 3.1 % (0.0-4.0); HEMATOCRIT 38.5 % (35.0-46.0); HEMO FLAGS DIFF FINAL; LYMPHOCYTE # 3.3 TH/MM3 (1.0-4.8); MEAN CELL VOLUME 87.7 FL (80.0-100.0); MEAN CORPUSCULAR HEMOGLOBIN 29.6 PG (27.0-34.0); MEAN CORPUSCULAR HGB CONC 33.8 % (32.0-36.0); MONO % 5.6 % (0.0-8.0); NEUT % 66.4 % (16.0-70.0); PLATELET COUNT 294 TH/MM3 (150-450); RED BLOOD COUNT 4.39 MIL/MM3 (4.00-5.30); WHITE BLOOD COUNT 13.8 TH/MM3 (4.0-11.0)
[2017-05-07 06:53] LABS: BICARBONATE 23.8 MEQ/L (21.0-32.0); MAGNESIUM 1.8 MG/DL (1.5-2.5); POTASSIUM 4.1 MEQ/L (3.5-5.1)
--- NOTE | 2017-05-07 07:58 | HHI.PR ---
Subjective Remarks Abdomen less distended today Objective Vitals Vital Signs Date Time Temp Pulse Resp B/P (MAP) Pulse Ox O2 Delivery O2 Flow Rate FiO2 05/07/17 07:44 98.0 86 20 140/72 (94) 95 05/07/17 04:44 77 05/07/17 03:24 98.5 89 17 127/70 (89) 96 05/07/17 00:00 82 05/06/17 23:06 98.7 86 17 121/64 (83) 95 05/06/17 20:25 98.5 88 17 117/62 (80) 95 05/06/17 20:00 94 05/06/17 18:00 18 05/06/17 16:00 98.3 82 20 145/79 (101) 96 05/06/17 15:00 90 05/06/17 12:26 97.9 94 16 157/84 (108) 95 05/06/17 11:30 89 05/06/17 08:00 89 Result Diagram: 05/07/17 0544 05/07/17 0544 Other Results Laboratory Tests Test 05/05/17 11:16 05/06/17 14:09 05/07/17 05:44 Stool C. difficile Toxin (PCR) NEGATIVE Stl C. difficile Toxin Epiderm 027 PRESUMPTIVE NEGATIVE White Blood Count 13.8 TH/MM3 Red Blood Count 4.39 MIL/MM3 Hemoglobin 13.0 GM/DL Hematocrit 38.5 % Mean Corpuscular Volume 87.7 FL Mean Corpuscular Hemoglobin 29.6 PG Mean Corpuscular Hemoglobin Concent 33.8 % Red Cell Distribution Width 13.0 % Platelet Count 294 TH/MM3 Mean Platelet Volume 7.3 FL Neutrophils (%) (Auto) 66.4 % Lymphocytes (%) (Auto) 24.0 % Monocytes (%) (Auto) 5.6 % Eosinophils (%) (Auto) 3.1 % Basophils (%) (Auto) 0.9 % Neutrophils # (Auto) 9.2 TH/MM3 Lymphocytes # (Auto) 3.3 TH/MM3 Monocytes # (Auto) 0.8 TH/MM3 Eosinophils # (Auto) 0.4 TH/MM3 Basophils # (Auto) 0.1 TH/MM3 CBC Comment DIFF FINAL Differential Comment Blood Urea Nitrogen 5 MG/DL Creatinine 0.59 MG/DL Random Glucose 228 MG/DL Calcium Level 8.3 MG/DL Magnesium Level 1.8 MG/DL Sodium Level 139 MEQ/L Potassium Level 4.1 MEQ/L Chloride Level 105 MEQ/L Carbon Dioxide Level 23.8 MEQ/L Anion Gap 10 MEQ/L Estimat Glomerular Filtration Rate 108 ML/MIN Imaging Last Impressions Abdomen X-Ray 05/06/17 0000 Signed Impressions: Service Date/Time: Saturday, May 06, 2017 08:39 - CONCLUSION: Probable ileus cecum dilated to 9 cm. Wenceslao Burk MD FACR Abdomen/Pelvis CT 05/04/17 1619 Signed Impressions: Service Date/Time: Thursday, May 04, 2017 17:48 - CONCLUSION: 1. Unremarkable bowel gas pattern with no inflammatory change or obstruction. 2. Mild hepatic steatosis. 3. Status post cholecystectomy. Rolly Padilla MD Last Impressions Abdomen/Pelvis CT 05/04/171618 Signed Impressions: Service Date/Time: Thursday, May 04, 2017 17:48 - CONCLUSION: 1. Unremarkable bowel gas pattern with no inflammatory change or obstruction. 2. Mild hepatic steatosis. 3. Status post cholecystectomy. Rolly Padilla MD Objective Remarks General: A&O x3, appears to be in pain Cardiac: Regular Respiratory: CTA GI: Upper abdomen tender and less bloated, no rebound tenderness. BS present. laparoscopic surgical scars healing. Ext: No edema Procedures Panendoscopy with botox injection 04/28/17- Dr. Leavitt Robotic assisted laparoscopic division of median arcuate ligament 04/22/17 Dr. Soares A/P Problem List: (1) Intractable abdominal pain ICD Codes: R10.9 - Unspecified abdominal pain Status: Acute Plan: - Patient is 51 yo female with ongoing problems with abdomen pain. This is her third admission. - She was originally admitted to [facility] [place] from 03/27-04/03 then 04/13-05/02 after transfer to [facility]. - She initially complained of pain LUQ and diarrhea. The abd pain had been constant for 6 weeks, associated with nausea and was worse after eating. She had occasional vomiting , loose stools, and 12 lb weight loss.Pt had an outpt evaluation with GI for the above complaints and had a CT Abd/pelvis which was negative and was given Reglan without improvement. - Pt was then admitted to [facility] in 03/2017 with these same complaints and again had a negative CT scan without evidence of obstruction. She had NGT placed and bowel rest. SBFT was negative as well. She was sent home on EES but presented back to GI with continued issues with abd pain, diarrhea, N/V. - Pt was admitted to [facility] for further workup on 04/13. - Pt underwent EGD/colonoscopy (04/14) with Dr. Luciano --> gastritis, esophagitis (?julia esophagitis), hiatal hernia, poor prep, small internal hemorrhoids. Pathology consistent with chemical gastropathy, moderate to severe acute suppurative esophagitis (fungal stain is negative and viral inclusions are not observed), biopsy from descending colon with features suggestive of collagenous colitis. 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 - She was transferred to [facility] for surgery. - Pt underwent division of median arcuate ligament today with Dr. Soares and Dr. 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 No upper abdominal adhesions. NGT removed and was tolerating liquids. Diet was advanced to soft per GS on but pt having more abd bloating/discomfort and nausea on 04/26 - KUB on 04/26 -->Grossly distended stomach with mildly distended gas-filled small bowel. Colon is normal in caliber. This is a nonspecific pattern. - Pt felt to have some degree of gastroparesis contributing to her symptoms but in light on her recent surgery and narcotic use it is difficult to accurately test for this. Pt had previously been tried on Reglan and EES without much relief. - EGD (04/28/17) performed by Dr. Leavitt- BOTOX injection 100 IU. Injected into pylorus NG tube placed by anesthesia. There was fair amount of residual food in stomach. KUB (04/29/17) --> gastric decompression, NGT placement - Trial of Bethanechol and Trial of EES were given. she was tolerating full liquid diet at time of d/c. - Prednisone 20 mg daily started for collagenous colitis and stopped at time of d/c. - After d/c home on 05/02 pt says she was having a different upper abdomen pain that was constant and radiating to back. She has not been eating much but admits that eating is not making the pain worse. She moved her bowels after d/ c. Denies any fever or chills and no vomiting. She might just have persistent surgical pain. pt was using iv Dilaudid and [place] up until time of her d/c home. - GI Following - Xifaxan and Creon added to regimen - Stools for C. diff were negative. - CT Abd/pelvis reviewed and no obvious complication to recent surgery - KUB (05/06/17) -->Probable ileus cecum dilated to 9 cm. - Pt given Relistor on 05/06 and stopped Dilaudid and [place] - Repeat KUB (05/07/17) --> Nonspecific bowel gas pattern, improved from 05/06 - Ultram and Ofirmev PRN - Clear liquids - Cont. IVF - PRN anti emetic - Supportive care - DVT prophylaxis (2) Dehydration ICD Codes: E86.0 - Dehydration Status: Acute (3) Diabetes ICD Codes: E11.9 - Type 2 diabetes mellitus without complications Status: Chronic (4) Gastroparesis ICD Codes: K31.84 - Gastroparesis Status: Chronic (5) Depression ICD Codes: F32.9 - Major depressive disorder, single episode, unspecified Status: Chronic Assessment and Plan Patient examined. Assessment and plan formulated with Savanna Hemphill PA-C. I agree with the above. abdomen pain. recent arcuate ligament surgery. gastroparesis. ileus better after relistor pain meds to ultram and ofirmev prn. miralax. d/c when ok with GI. Problem Qualifiers (1) Diabetes: Savanna Hemphill May 07, 2017 07:58 Angel Luis Mccracken MD May 07, 2017 10:09
[2017-05-07] MEDS: INSULIN ASPART SUPPLEMENTAL SCALE SQ SCH ×4 (08:00→21:41)
[2017-05-07] MEDS: RIFAXIMIN 550 MG TAB PO SCH ×3 (08:41→18:46)
[2017-05-07] MEDS: ERYTHROMYCIN EC 250 MG TABEC PO SCH ×3 (08:41→18:53)
[2017-05-07] MEDS: CARVEDILOL 6.25 MG TAB PO SCH ×2 (08:41→19:41)
[2017-05-07] MEDS: LIPASE/PROTEASE/AMYLASE (24,000/76,000/120,000) CAP PO SCH ×3 (08:42→18:46)
[2017-05-07] MEDS: PREGABALIN 75 MG CAP PO SCH ×3 (08:42→18:46)
[2017-05-07] MEDS: POTASSIUM CHLORIDE 20 MEQ CONTROLLED RELEASE TAB PO SCH (08:42)
[2017-05-07] MEDS: DULoxetine HCl DR 60 MG CAP PO SCH (08:42)
[2017-05-07] MEDS: SODIUM CHLOR 0.9% 1000 ML INJ 1,000 ML IV SCH ×2 (10:00→19:41)
[2017-05-07] MEDS: POLYETHYLENE GLYCOL 17 GM PKG PO SCH (10:00)
--- NOTE | 2017-05-07 12:34 | HHI.GIFU ---
Subjective Remarks States she continues to have the abdominal pain, but states that it is a different pain from when I last saw her. She describes it more as a cramping like pain in the luq/left middle abdomen. Nausea, without vomiting. States she had a bowel movement the night before last, but did not have any bowel movement after the relistor yesterday. Bloating is much improved. (Radha Levine) Objective Vitals I&O Vital Signs Date Time Temp Pulse Resp B/P (MAP) Pulse Ox O2 Delivery O2 Flow Rate FiO2 05/07/17 11:49 98.3 84 20 122/55 (77) 96 05/07/17 11:05 20 05/07/17 11:05 20 05/07/17 07:44 98.0 86 20 140/72 (94) 95 05/07/17 04:44 77 05/07/17 03:24 98.5 89 17 127/70 (89) 96 05/07/17 00:00 82 05/06/17 23:06 98.7 86 17 121/64 (83) 95 05/06/17 20:25 98.5 88 17 117/62 (80) 95 05/06/17 20:00 94 05/06/17 16:00 98.3 82 20 145/79 (101) 96 05/06/17 15:00 90 05/06/17 12:26 97.9 94 16 157/84 (108) 95 I/O 05/06/17 05/06/17 05/06/17 05/07/17 05/07/17 05/07/17 07:00 15:00 23:00 07:00 15:00 23:00 # Voids 4 # Bowel Movements 0 Laboratory Laboratory Tests Test 05/06/17 14:09 05/07/17 05:44 White Blood Count 13.8 Red Blood Count 4.39 Hemoglobin 13.0 Hematocrit 38.5 Mean Corpuscular Volume 87.7 Mean Corpuscular Hemoglobin 29.6 Mean Corpuscular Hemoglobin Concent 33.8 Red Cell Distribution Width 13.0 Platelet Count 294 Mean Platelet Volume 7.3 Neutrophils (%) (Auto) 66.4 Lymphocytes (%) (Auto) 24.0 Monocytes (%) (Auto) 5.6 Eosinophils (%) (Auto) 3.1 Basophils (%) (Auto) 0.9 Neutrophils # (Auto) 9.2 Lymphocytes # (Auto) 3.3 Monocytes # (Auto) 0.8 Eosinophils # (Auto) 0.4 Basophils # (Auto) 0.1 CBC Comment DIFF FINAL Differential Comment Blood Urea Nitrogen 5 Creatinine 0.59 Random Glucose 228 Calcium Level 8.3 Magnesium Level 1.8 Sodium Level 139 Potassium Level 4.1 Chloride Level 105 Carbon Dioxide Level 23.8 Anion Gap 10 Estimat Glomerular Filtration Rate 108 Date/Time Source Procedure Growth Status 05/05/17 18:00 Stool Stool Cryptosporidium Exam - Final NEGATIVE - NO CRYPTOSPORIDIUM ANTIGEN... Complete 05/05/17 18:00 Stool Stool Giardia Antigen ([facility]JI) - Final NEGATIVE - NO GIARDIA ANTIGEN DETECTE... Complete Imaging Last Impressions Abdomen X-Ray 05/06/17 0000 Signed Impressions: Service Date/Time: Saturday, May 06, 2017 08:39 - CONCLUSION: Probable ileus cecum dilated to 9 cm. Wenceslao Burk MD FACR Abdomen/Pelvis CT 05/04/17 1619 Signed Impressions: Service Date/Time: Thursday, May 04, 2017 17:48 - CONCLUSION: 1. Unremarkable bowel gas pattern with no inflammatory change or obstruction. 2. Mild hepatic steatosis. 3. Status post cholecystectomy. Rolly Padilla MD Physical Exam HEENT: Normocephalic; atraumatic; no jaundice. CHEST: CTA CARDIAC: RRR ABDOMEN: Abdomen soft, mildly distended, mild epigastric/mid abdominal tenderness, no hepatosplenomegaly; bowel sounds are present in all four quadrants. EXTREMITIES: No clubbing, cyanosis, or edema. SKIN: Normal; no rash; no jaundice. ANESTHESIOLOGY PHYSICIAN: No focal deficits; alert and oriented times three. (Radha Levine) Assessment and Plan Plan ASSESSMENT - Abdominal pain, likely multifactorial r/t gastroparesis and ileus. EGD/ colonoscopy (04/14) with Dr. Luciano--gastritis, esophagitis (?julia esophagitis), hiatal hernia, poor prep, small internal hemorrhoids. Pathology consistent with chemical gastropathy, moderate to severe acute suppurative esophagitis ( fungal stain is negative and viral inclusions are not observed), biopsy from descending colon with features suggestive of collagenous colitis. Continues to have loose stools. Stool studies negative. S/P Division of median arcuate ligament (04/22/17). EGD with BOTOX injection (04/28/17)---> Botox 100 IU. Injected into pylorus NG tube placed by anesthesia. There was fair amount of residual food in stomach. She was treated with Miralax, Bethanechol, EES, Simethicone and instructed to stay on a full liquid diet. She returns to ER with complaints of a different pain- more cramping in mid abdomen, but still left sided. S/P CT Scan abdomen and pelvis (05/04/17)---> Unremarkable bowel gas pattern with no inflammatory change or obstruction. Mild hepatic steatosis. S/P cholecystectomy. KUB (05/06)--> probable ileus cecum dilated to 9cm. S/P Relistor (05/06)- no bm after relistor, but distention improved- Today's KUB with nonspecific abdomen appearance. Clinically, abdomen is soft with only mild distention. However, she continues to have cramping like pain. Miralax, Xifaxan, Creon, EES, Simethicone, Bethanechol, PPI. Agree with avoiding narcotics. Trial of bentyl. Would like to advance diet. Will keep on full liquids for now, possible advance to soft diet once she moves her bowels again. - Collagenous colitis on recent colonoscopy. Consider Entocort at discharged. - Leukocytosis, mild. WBC 13.8. - HTN, DM per attending. PLAN - Full liquids - Miralax - Trial of bentyl - Creon - Xifaxan - EES - PPI - Bethanechol - Supportive care - Encourage mobility - Avoid narcotics, likely her narcotic use was contributing to her abdominal pain, gastroparesis, and ileus - Further recommendations to follow based on results of above - This pt seen by myself and Dr España and this note is written on his behalf (Radha Levine) Physician Comments Seen and examined with Radha. Plan as above. Will follow up with you. (Rosalina España MD) Radha Levine May 07, 2017 12:34 Rosalina España MD May 07, 2017 12:48
[2017-05-07] MEDS: DICYCLOMINE HCL 20 MG TAB PO SCH ×2 (15:18→18:46)
[2017-05-07] MEDS: PANTOPRAZOLE SODIUM 40 MG VIAL IV PUSH SCH (19:41)
[2017-05-08] VITALS: BP 133/74; PULSE 74; RESP 16; TEMP 96; O2SAT 95
[2017-05-08] MEDS: SODIUM CHLOR 0.9% 1000 ML INJ 1,000 ML IV SCH (02:10)
[2017-05-08] MEDS: traMADol HCL 50 MG TAB PO PRN ×6 (03:38→23:42)
[2017-05-08 04:00] VITALS: BP 115/65; PULSE 71; RESP 17; TEMP 97.6; O2SAT 96
[2017-05-08] MEDS: SIMETHICONE 125 MG CHEWABLE TAB PO SCH ×3 (06:02→23:42)
[2017-05-08] MEDS: BETHANECHOL CHL 25 MG TAB PO SCH ×3 (06:02→23:42)
[2017-05-08 08:00] VITALS: BP 142/91; PULSE 76; RESP 18; TEMP 97.8; O2SAT 96
[2017-05-08] MEDS: RIFAXIMIN 550 MG TAB PO SCH ×3 (08:00→17:40)
[2017-05-08] MEDS: DULoxetine HCl DR 60 MG CAP PO SCH (08:00)
[2017-05-08] MEDS: ERYTHROMYCIN EC 250 MG TABEC PO SCH ×3 (08:00→17:41)
[2017-05-08] MEDS: POTASSIUM CHLORIDE 20 MEQ CONTROLLED RELEASE TAB PO SCH (08:00)
[2017-05-08] MEDS: LIPASE/PROTEASE/AMYLASE (24,000/76,000/120,000) CAP PO SCH ×3 (08:00→17:41)
[2017-05-08] MEDS: POLYETHYLENE GLYCOL 17 GM PKG PO SCH (08:01)
[2017-05-08] MEDS: DICYCLOMINE HCL 20 MG TAB PO SCH ×3 (08:01→17:40)
[2017-05-08] MEDS: PREGABALIN 75 MG CAP PO SCH ×3 (08:01→17:40)
[2017-05-08] MEDS: CARVEDILOL 6.25 MG TAB PO SCH ×2 (08:01→19:45)
[2017-05-08] MEDS: INSULIN ASPART SUPPLEMENTAL SCALE SQ SCH ×4 (09:16→20:04)
--- NOTE | 2017-05-08 09:26 | HHI.PR ---
Subjective Remarks Pt feels that her abdominal pain is about the same but she does appear to be more comfortable today She is tolerating full liquid diet No BM, minimal flatus Objective Vitals Vital Signs Date Time Temp Pulse Resp B/P (MAP) Pulse Ox O2 Delivery O2 Flow Rate FiO2 05/08/17 08:00 97.8 76 18 142/91 (108) 96 05/08/17 04:00 97.6 71 17 115/65 (82) 96 05/08/17 00:00 96.0 74 16 133/74 (93) 95 05/07/17 20:00 96.8 90 17 140/65 (90) 97 05/07/17 14:30 98.0 85 16 131/83 (99) 95 05/07/17 11:49 98.3 84 20 122/55 (77) 96 05/07/17 11:05 20 05/07/17 11:05 20 Result Diagram: 05/07/17 0544 05/07/17 0544 Other Results Laboratory Tests Test 05/06/17 14:09 05/07/17 05:44 White Blood Count 13.8 TH/MM3 Red Blood Count 4.39 MIL/MM3 Hemoglobin 13.0 GM/DL Hematocrit 38.5 % Mean Corpuscular Volume 87.7 FL Mean Corpuscular Hemoglobin 29.6 PG Mean Corpuscular Hemoglobin Concent 33.8 % Red Cell Distribution Width 13.0 % Platelet Count 294 TH/MM3 Mean Platelet Volume 7.3 FL Neutrophils (%) (Auto) 66.4 % Lymphocytes (%) (Auto) 24.0 % Monocytes (%) (Auto) 5.6 % Eosinophils (%) (Auto) 3.1 % Basophils (%) (Auto) 0.9 % Neutrophils # (Auto) 9.2 TH/MM3 Lymphocytes # (Auto) 3.3 TH/MM3 Monocytes # (Auto) 0.8 TH/MM3 Eosinophils # (Auto) 0.4 TH/MM3 Basophils # (Auto) 0.1 TH/MM3 CBC Comment DIFF FINAL Differential Comment Blood Urea Nitrogen 5 MG/DL Creatinine 0.59 MG/DL Random Glucose 228 MG/DL Calcium Level 8.3 MG/DL Magnesium Level 1.8 MG/DL Sodium Level 139 MEQ/L Potassium Level 4.1 MEQ/L Chloride Level 105 MEQ/L Carbon Dioxide Level 23.8 MEQ/L Anion Gap 10 MEQ/L Estimat Glomerular Filtration Rate 108 ML/MIN Imaging Last Impressions Abdomen X-Ray 05/06/17 0000 Signed Impressions: Service Date/Time: Saturday, May 06, 2017 08:39 - CONCLUSION: Probable ileus cecum dilated to 9 cm. Wenceslao Burk MD FACR Abdomen/Pelvis CT 05/04/17 1619 Signed Impressions: Service Date/Time: Thursday, May 04, 2017 17:48 - CONCLUSION: 1. Unremarkable bowel gas pattern with no inflammatory change or obstruction. 2. Mild hepatic steatosis. 3. Status post cholecystectomy. Rolly Padilla MD Last Impressions Abdomen/Pelvis CT 05/04/17 1619 Signed Impressions: Service Date/Time: Thursday, May 04, 2017 17:48 - CONCLUSION: 1. Unremarkable bowel gas pattern with no inflammatory change or obstruction. 2. Mild hepatic steatosis. 3. Status post cholecystectomy. Rolly Padilla MD Objective Remarks General: A&O x3, appears to be in pain Cardiac: Regular Respiratory: CTA GI: Upper abdomen tender and less bloated, no rebound tenderness. BS present. laparoscopic surgical scars healing well. Ext: No edema Procedures Panendoscopy with botox injection 04/28/17- Dr. Leavitt Robotic assisted laparoscopic division of median arcuate ligament 04/22/17 Dr. Soares A/P Problem List: (1) Intractable abdominal pain ICD Codes: R10.9 - Unspecified abdominal pain Status: Acute Plan: - Patient is 51 yo female with ongoing problems with abdomen pain. This is her third admission. - She was originally admitted to [facility] from 03/27-04/03 then 04/13-05/02 after transfer to [facility]. - She initially complained of pain LUQ and diarrhea. The abd pain had been constant for 6 weeks, associated with nausea and was worse after eating. She had occasional vomiting , loose stools, and 12 lb weight loss.Pt had an outpt evaluation with GI for the above complaints and had a CT Abd/pelvis which was negative and was given Reglan without improvement. - Pt was then admitted to [facility] in 03/2017 with these same complaints and again had a negative CT scan without evidence of obstruction. She had NGT placed and bowel rest. SBFT was negative as well. She was sent home on EES but presented back to GI with continued issues with abd pain, diarrhea, N/V. - Pt was admitted to [facility] for further workup on 04/13. - Pt underwent EGD/colonoscopy (04/14) with Dr. Luciano --> gastritis, esophagitis (?julia esophagitis), hiatal hernia, poor prep, small internal hemorrhoids. Pathology consistent with chemical gastropathy, moderate to severe acute suppurative esophagitis (fungal stain is negative and viral inclusions are not observed), biopsy from descending colon with features suggestive of collagenous colitis. 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 - She was transferred to [facility] for surgery. - Pt underwent division of median arcuate ligament today with Dr. Soares and Dr. 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 No upper abdominal adhesions. NGT removed and was tolerating liquids. Diet was advanced to soft per GS on but pt having more abd bloating/discomfort and nausea on 04/26 - KUB on 04/26 -->Grossly distended stomach with mildly distended gas-filled small bowel. Colon is normal in caliber. This is a nonspecific pattern. - Pt felt to have some degree of gastroparesis contributing to her symptoms but in light on her recent surgery and narcotic use it is difficult to accurately test for this. Pt had previously been tried on Reglan and EES without much relief. - EGD (04/28/17) performed by Dr. Leavitt- BOTOX injection 100 IU. Injected into pylorus NG tube placed by anesthesia. There was fair amount of residual food in stomach. KUB (04/29/17) --> gastric decompression, NGT placement - Trial of Bethanechol and Trial of EES were given. she was tolerating full liquid diet at time of d/c. - Prednisone 20 mg daily started for collagenous colitis and stopped at time of d/c. - After d/c home on 05/02 pt says she was having a different upper abdomen pain that was constant and radiating to back. She has not been eating much but admits that eating is not making the pain worse. She moved her bowels after d/ c. Denies any fever or chills and no vomiting. She might just have persistent surgical pain. pt was using iv Dilaudid and [place] up until time of her d/c home. - GI Following - Xifaxan and Creon added to regimen - Stools for C. diff were negative. - CT Abd/pelvis reviewed and no obvious complication to recent surgery - KUB (05/06/17) -->Probable ileus cecum dilated to 9 cm. - Pt given Relistor on 05/06 and stopped Dilaudid and [place] - Repeat KUB (05/07/17) --> Nonspecific bowel gas pattern, improved from 05/06 - Ultram and Ofirmev PRN - Full liquids - Encourage ambulation - Try to get bowel moving today, give Miralax and Lactulose, pt refusing Mag Citrate - PRN anti emetic - Supportive care - DVT prophylaxis (2) Dehydration ICD Codes: E86.0 - Dehydration Status: Acute (3) Diabetes ICD Codes: E11.9 - Type 2 diabetes mellitus without complications Status: Chronic (4) Gastroparesis ICD Codes: K31.84 - Gastroparesis Status: Chronic (5) Depression ICD Codes: F32.9 - Major depressive disorder, single episode, unspecified Status: Chronic Assessment and Plan Patient examined. Assessment and plan formulated with Savanna Hemphill PA-C. I agree with the above. Problem Qualifiers (1) Diabetes: Savanna Hemphill May 08, 2017 09:26 Angel Luis Mccracken MD May 08, 2017 09:28
[2017-05-08] MEDS: LACTULOSE SYRUP 20 GM/30 ML CUP PO SCH ×2 (10:00→19:45)
[2017-05-08 12:00] VITALS: BP 126/77; PULSE 77; RESP 18; TEMP 97.5; O2SAT 95
[2017-05-08 16:00] VITALS: BP 119/72; PULSE 86; RESP 18; TEMP 97.4; O2SAT 96
[2017-05-08] MEDS: PROMETHAZINE HCL 25 MG TAB PO PRN ×2 (17:40→23:42)
[2017-05-08] MEDS: PANTOPRAZOLE SODIUM 40 MG VIAL IV PUSH SCH (19:44)
[2017-05-08] MEDS: ONDANSETRON HCL 4 MG/2 ML VIAL IV PUSH PRN (19:45)
[2017-05-08 19:55] VITALS: BP 121/79; PULSE 73; RESP 16; TEMP 98.3; O2SAT 97
[2017-05-09] VITALS: BP 107/66; PULSE 71; RESP 16; TEMP 97.2; O2SAT 96
[2017-05-09] MEDS: ONDANSETRON HCL 4 MG/2 ML VIAL IV PUSH PRN (03:31)
[2017-05-09] MEDS: traMADol HCL 50 MG TAB PO PRN ×5 (03:31→22:19)
[2017-05-09 03:45] VITALS: BP 102/67; PULSE 75; RESP 17; TEMP 97.7; O2SAT 97
[2017-05-09] MEDS: BETHANECHOL CHL 25 MG TAB PO SCH ×3 (05:43→22:20)
[2017-05-09] MEDS: SIMETHICONE 125 MG CHEWABLE TAB PO SCH ×3 (05:43→22:21)
[2017-05-09 08:00] VITALS: BP 122/82; PULSE 78; RESP 18; TEMP 96.6; O2SAT 96
[2017-05-09] MEDS: INSULIN ASPART SUPPLEMENTAL SCALE SQ SCH ×4 (08:00→22:34)
[2017-05-09] MEDS: RIFAXIMIN 550 MG TAB PO SCH ×3 (08:39→18:02)
[2017-05-09] MEDS: ERYTHROMYCIN EC 250 MG TABEC PO SCH ×3 (08:39→18:02)
[2017-05-09] MEDS: DULoxetine HCl DR 60 MG CAP PO SCH (08:40)
[2017-05-09] MEDS: CARVEDILOL 6.25 MG TAB PO SCH ×2 (08:40→22:20)
[2017-05-09] MEDS: LIPASE/PROTEASE/AMYLASE (24,000/76,000/120,000) CAP PO SCH ×3 (08:40→18:02)
[2017-05-09] MEDS: POTASSIUM CHLORIDE 20 MEQ CONTROLLED RELEASE TAB PO SCH (08:40)
[2017-05-09] MEDS: PREGABALIN 75 MG CAP PO SCH ×3 (08:40→18:02)
[2017-05-09] MEDS: DICYCLOMINE HCL 20 MG TAB PO SCH ×3 (08:40→18:02)
[2017-05-09] MEDS: LACTULOSE SYRUP 20 GM/30 ML CUP PO SCH (08:40)
[2017-05-09] MEDS: POLYETHYLENE GLYCOL 17 GM PKG PO SCH (08:40)
[2017-05-09] MEDS: PROMETHAZINE HCL 25 MG TAB PO PRN ×3 (08:44→22:19)
--- NOTE | 2017-05-09 10:15 | HHI.PR ---
Subjective Remarks no bm. nauseated. Objective Vitals heart reg lung cta abd s/nt/bs ext no edema Vital Signs Date Time Temp Pulse Resp B/P (MAP) Pulse Ox O2 Delivery O2 Flow Rate FiO2 05/09/17 08:00 96.6 78 18 122/82 (95) 96 05/09/17 03:45 97.7 75 17 102/67 (79) 97 05/09/17 00:00 97.2 71 16 107/66 (80) 96 05/08/17 19:55 98.3 73 16 121/79 (93) 97 05/08/17 16:00 97.4 86 18 119/72 (88) 96 05/08/17 12:00 97.5 77 18 126/77 (93) 95 Result Diagram: 05/07/17 0544 05/07/17 0544 Imaging Last Impressions Abdomen X-Ray 05/06/17 0000 Signed Impressions: Service Date/Time: Saturday, May 06, 2017 08:39 - CONCLUSION: Probable ileus cecum dilated to 9 cm. Wenceslao Burk MD FACR Abdomen/Pelvis CT 05/04/171618 Signed Impressions: Service Date/Time: Thursday, May 04, 2017 17:48 - CONCLUSION: 1. Unremarkable bowel gas pattern with no inflammatory change or obstruction. 2. Mild hepatic steatosis. 3. Status post cholecystectomy. Rolly Padilla MD Last Impressions Abdomen/Pelvis CT 05/04/171618 Signed Impressions: Service Date/Time: Thursday, May 04, 2017 17:48 - CONCLUSION: 1. Unremarkable bowel gas pattern with no inflammatory change or obstruction. 2. Mild hepatic steatosis. 3. Status post cholecystectomy. Rolly Padilla MD Procedures Panendoscopy with botox injection 04/28/17- Dr. Leavitt Robotic assisted laparoscopic division of median arcuate ligament 04/22/17 Dr. Soares A/P Problem List: (1) Intractable abdominal pain ICD Codes: R10.9 - Unspecified abdominal pain Status: Acute Plan: - Patient is 51 yo female with ongoing problems with abdomen pain. This is her third admission. - [place] [facility] [place] 04/13-05/02 after transfer to [facility]. - She initially complained of pain LUQ and diarrhea. The abd pain had been constant for 6 weeks, associated with nausea and was worse after eating. She had occasional vomiting , loose stools, and 12 lb weight loss.Pt had an outpt evaluation with GI for the above complaints and had a CT Abd/pelvis which was negative and was given Reglan without improvement. - Pt was then admitted [place] [facility] [place] with these same complaints and again had a negative CT scan without evidence of obstruction. She had NGT placed and bowel rest. SBFT was negative as well. She was sent home on EES but presented back to GI with continued issues with abd pain, diarrhea, N/V. - Pt was admitted [place] [facility] [place]13. - Pt underwent EGD/colonoscopy (04/14) with Dr. Luciano --> gastritis, esophagitis (?julia esophagitis), hiatal hernia, poor prep, small internal hemorrhoids. Pathology consistent with chemical gastropathy, moderate to severe acute suppurative esophagitis (fungal stain is negative and viral inclusions are not observed), biopsy from descending colon with features suggestive of collagenous colitis. 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 - She was transferred to [facility] for surgery. - Pt underwent division of median arcuate ligament today with Dr. Soares and Dr. 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 No upper abdominal adhesions. NGT removed and was tolerating liquids. Diet was advanced to soft per GS on but pt having more abd bloating/discomfort and nausea on 04/26 - KUB on 04/26 -->Grossly distended stomach with mildly distended gas-filled small bowel. Colon is normal in caliber. This is a nonspecific pattern. - Pt felt to have some degree of gastroparesis contributing to her symptoms but in light on her recent surgery and narcotic use it is difficult to accurately test for this. Pt had previously been tried on Reglan and EES without much relief. - EGD (04/28/17) performed by Dr. Leavitt- BOTOX injection 100 IU. Injected into pylorus NG tube placed by anesthesia. There was fair amount of residual food in stomach. KUB (04/29/17) --> gastric decompression, NGT placement - Trial of Bethanechol and Trial of EES were given. she was tolerating full liquid diet at time of d/c. - Prednisone 20 mg daily started for collagenous colitis and stopped at time of d/c. - After d/c home on 05/02 pt says she was having a different upper abdomen pain that was constant and radiating to back. She has not been eating much but admits that eating is not making the pain worse. She moved her bowels after d/ c. Denies any fever or chills and no vomiting. She might just have persistent surgical pain. pt was using iv Dilaudid and [place] up until time of her d/c home. - GI Following - Xifaxan and Creon added to regimen - Stools for C. diff were negative. - CT Abd/pelvis reviewed and no obvious complication to recent surgery - KUB (05/06/17) -->Probable ileus cecum dilated to 9 cm. - Pt given Relistor on 05/06 and stopped Dilaudid and [place] - Repeat KUB (05/07/17) --> Nonspecific bowel gas pattern, improved from 05/06 - Ultram and Ofirmev PRN - Full liquids - Encourage ambulation - still no bm. nauseated. mag citrate this AM...if bm then ok to dc later today. (2) Dehydration ICD Codes: E86.0 - Dehydration Status: Acute (3) Diabetes ICD Codes: E11.9 - Type 2 diabetes mellitus without complications Status: Chronic (4) Gastroparesis ICD Codes: K31.84 - Gastroparesis Status: Chronic (5) Depression ICD Codes: F32.9 - Major depressive disorder, single episode, unspecified Status: Chronic Problem Qualifiers (1) Diabetes: Angel Luis Mccracken MD May 09, 2017 10:15
[2017-05-09] MEDS ORDERED: MAGNESIUM CITRATE SOLN 300 ML BTL PO ONE (10:30)
[2017-05-09 12:00] VITALS: BP 103/61; PULSE 83; RESP 18; TEMP 96; O2SAT 95
[2017-05-09 16:00] VITALS: BP 125/62; PULSE 79; RESP 18; TEMP 96.6; O2SAT 96
--- NOTE | 2017-05-09 16:33 | HHI.GIFU ---
Subjective Remarks c/o lower abd cramping. Had liquid stool. Objective Vitals I&O Vital Signs Date Time Temp Pulse Resp B/P (MAP) Pulse Ox O2 Delivery O2 Flow Rate FiO2 05/09/17 12:00 96.0 83 18 103/61 (75) 95 05/09/17 08:00 96.6 78 18 122/82 (95) 96 05/09/17 03:45 97.7 75 17 102/67 (79) 97 05/09/17 00:00 97.2 71 16 107/66 (80) 96 05/08/17 19:55 98.3 73 16 121/79 (93) 97 I/O 05/08/17 05/08/17 05/08/17 05/09/17 05/09/17 05/09/17 07:00 15:00 23:00 07:00 15:00 23:00 Intake Total 1720 ml 720 ml 750 ml 480 ml Balance 1720 ml 720 ml 750 ml 480 ml Intake Oral 720 ml 720 ml 750 ml 480 ml IV Total 1000 ml # Voids 2 4 2 1 # Bowel Movements 0 Laboratory Date/Time Source Procedure Growth Status 05/05/17 18:00 Stool Stool Cryptosporidium Exam - Final NEGATIVE - NO CRYPTOSPORIDIUM ANTIGEN... Complete 05/05/17 18:00 Stool Stool Giardia Antigen (SAJI) - Final NEGATIVE - NO GIARDIA ANTIGEN DETECTE... Complete Physical Exam HEENT: Normocephalic; atraumatic; no jaundice. CHEST: CTA CARDIAC: RRR ABDOMEN: Abdomen soft, mildly distended, mild lower abd TTP, no hepatosplenomegaly; bowel sounds are present in all four quadrants. EXTREMITIES: No clubbing, cyanosis, or edema. SKIN: Normal; no rash; no jaundice. 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 Assessment and Plan Plan ASSESSMENT - Abdominal pain, likely multifactorial r/t gastroparesis and ileus. EGD/ colonoscopy (04/14) with Dr. Luciano--gastritis, esophagitis (?julia esophagitis), hiatal hernia, poor prep, small internal hemorrhoids. Pathology consistent with chemical gastropathy, moderate to severe acute suppurative esophagitis ( fungal stain is negative and viral inclusions are not observed), biopsy from descending colon with features suggestive of collagenous colitis. Continues to have loose stools. Stool studies negative. S/P Division of median arcuate ligament (04/22/17). EGD with BOTOX injection (04/28/17)---> Botox 100 IU. Injected into pylorus NG tube placed by anesthesia. There was fair amount of residual food in stomach. She was treated with Miralax, Bethanechol, EES, Simethicone and instructed to stay on a full liquid diet. She returns to ER with complaints of a different pain- more cramping in mid abdomen, but still left sided. S/P CT Scan abdomen and pelvis (05/04/17)---> Unremarkable bowel gas pattern with no inflammatory change or obstruction. Mild hepatic steatosis. S/P cholecystectomy. KUB (05/06)--> probable ileus cecum dilated to 9cm. S/P Relistor (05/06)- no bm after relistor, but distention improved- Today's KUB with nonspecific abdomen appearance. Clinically, abdomen is soft with only mild distention. However, she continues to have cramping like pain. Miralax, Xifaxan, Creon, EES, Simethicone, Bethanechol, PPI. Agree with avoiding narcotics. Trial of bentyl. + liquid stool. advancing diet - Collagenous colitis on recent colonoscopy. Consider Entocort at discharged. - Leukocytosis, mild. WBC 13.8. - HTN, DM per attending. 05/09/17 had large liquid BM after mg citrate, miralax lactulose. will adv diet PLAN - low res diet - continue bentyl - Creon - Xifaxan - EES - PPI - Bethanechol - Supportive care - Encourage mobility - Avoid narcotics, likely her narcotic use was contributing to her abdominal pain, gastroparesis, and ileus - This pt seen by myself and Dr España and this note is written on his behalf Lana Almaraz May 09, 2017 16:33
[2017-05-09 20:05] VITALS: BP 100/56; PULSE 91; RESP 16; TEMP 97.9; O2SAT 93
[2017-05-09] MEDS: PANTOPRAZOLE SODIUM 40 MG VIAL IV PUSH SCH (22:23)
[2017-05-10] MEDS: ONDANSETRON HCL 4 MG/2 ML VIAL IV PUSH PRN (00:11)
[2017-05-10 00:20] VITALS: BP 105/58; PULSE 88; RESP 16; TEMP 96.9; O2SAT 95
[2017-05-10] MEDS: SIMETHICONE 125 MG CHEWABLE TAB PO SCH ×3 (05:29→22:19)
[2017-05-10] MEDS: BETHANECHOL CHL 25 MG TAB PO SCH ×3 (05:29→22:19)
[2017-05-10] MEDS: traMADol HCL 50 MG TAB PO PRN ×5 (05:30→22:19)
[2017-05-10] MEDS: PROMETHAZINE HCL 25 MG TAB PO PRN ×2 (05:33→20:10)
[2017-05-10 08:00] VITALS: BP 120/56; PULSE 83; RESP 16; TEMP 97.4; O2SAT 95
[2017-05-10] MEDS: INSULIN ASPART SUPPLEMENTAL SCALE SQ SCH ×4 (08:00→20:21)
[2017-05-10] MEDS: LIPASE/PROTEASE/AMYLASE (24,000/76,000/120,000) CAP PO SCH ×3 (08:10→18:07)
[2017-05-10] MEDS: POTASSIUM CHLORIDE 20 MEQ CONTROLLED RELEASE TAB PO SCH (08:10)
[2017-05-10] MEDS: PREGABALIN 75 MG CAP PO SCH ×3 (08:10→18:07)
[2017-05-10] MEDS: DULoxetine HCl DR 60 MG CAP PO SCH (08:10)
[2017-05-10] MEDS: DICYCLOMINE HCL 20 MG TAB PO SCH ×3 (08:10→18:08)
[2017-05-10] MEDS: ERYTHROMYCIN EC 250 MG TABEC PO SCH (08:11)
[2017-05-10] MEDS: CARVEDILOL 6.25 MG TAB PO SCH ×2 (08:11→20:10)
--- NOTE | 2017-05-10 09:56 | HHI.PR ---
Subjective Remarks c/o alot of aching and pain with the laxatives yesterday. reports vomiting. did have 2 liquids bm's. wants to stay. Objective Vitals heart reg lung cta abd s/nt/bs ext no edema Vital Signs Date Time Temp Pulse Resp B/P (MAP) Pulse Ox O2 Delivery O2 Flow Rate FiO2 05/10/17 08:00 97.4 83 16 120/56 (77) 95 05/10/17 00:20 96.9 88 16 105/58 (74) 95 05/09/17 20:05 97.9 91 16 100/56 (71) 93 05/09/17 16:00 96.6 79 18 125/62 (83) 96 05/09/17 12:00 96.0 83 18 103/61 (75) 95 Result Diagram: 05/07/17 0544 05/07/17 0544 Imaging Last Impressions Abdomen X-Ray 05/06/17 0000 Signed Impressions: Service Date/Time: Saturday, May 06, 2017 08:39 - CONCLUSION: Probable ileus cecum dilated to 9 cm. Wenceslao Burk MD FACR Abdomen/Pelvis CT 05/04/171618 Signed Impressions: Service Date/Time: Thursday, May 04, 2017 17:48 - CONCLUSION: 1. Unremarkable bowel gas pattern with no inflammatory change or obstruction. 2. Mild hepatic steatosis. 3. Status post cholecystectomy. Rolly Padilla MD Last Impressions Abdomen/Pelvis CT 05/04/171618 Signed Impressions: Service Date/Time: Thursday, May 04, 2017 17:48 - CONCLUSION: 1. Unremarkable bowel gas pattern with no inflammatory change or obstruction. 2. Mild hepatic steatosis. 3. Status post cholecystectomy. Rolly Padilla MD Procedures Panendoscopy with botox injection 04/28/17- Dr. Leavitt Robotic assisted laparoscopic division of median arcuate ligament 04/22/17 Dr. Soares A/P Problem List: (1) Intractable abdominal pain ICD Codes: R10.9 - Unspecified abdominal pain Status: Acute Plan: - Patient is 51 yo female with ongoing problems with abdomen pain. This is her third admission. - She was originally admitted to [facility] [place] from 03/27-04/03 then 04/13-05/02 after transfer to [facility]. - She initially complained of pain LUQ and diarrhea. The abd pain had been constant for 6 weeks, associated with nausea and was worse after eating. She had occasional vomiting , loose stools, and 12 lb weight loss.Pt had an outpt evaluation with GI for the above complaints and had a CT Abd/pelvis which was negative and was given Reglan without improvement. - Pt was then admitted to [facility] [place] in 03/2017 with these same complaints and again had a negative CT scan without evidence of obstruction. She had NGT placed and bowel rest. SBFT was negative as well. She was sent home on EES but presented back to GI with continued issues with abd pain, diarrhea, N/V. - Pt was admitted to [facility] [place] for further workup on 04/13. - Pt underwent EGD/colonoscopy (04/14) with Dr. Luciano --> gastritis, esophagitis (?julia esophagitis), hiatal hernia, poor prep, small internal hemorrhoids. Pathology consistent with chemical gastropathy, moderate to severe acute suppurative esophagitis (fungal stain is negative and viral inclusions are not observed), biopsy from descending colon with features suggestive of collagenous colitis. 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 - She was transferred to [facility] for surgery. - Pt underwent division of median arcuate ligament today with Dr. Soares and Dr. 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 No upper abdominal adhesions. NGT removed and was tolerating liquids. Diet was advanced to soft per GS on but pt having more abd bloating/discomfort and nausea on 04/26 - KUB on 04/26 -->Grossly distended stomach with mildly distended gas-filled small bowel. Colon is normal in caliber. This is a nonspecific pattern. - Pt felt to have some degree of gastroparesis contributing to her symptoms but in light on her recent surgery and narcotic use it is difficult to accurately test for this. Pt had previously been tried on Reglan and EES without much relief. - EGD (04/28/17) performed by Dr. Leavitt- BOTOX injection 100 IU. Injected into pylorus NG tube placed by anesthesia. There was fair amount of residual food in stomach. KUB (04/29/17) --> gastric decompression, NGT placement - Trial of Bethanechol and Trial of EES were given. she was tolerating full liquid diet at time of d/c. - Prednisone 20 mg daily started for collagenous colitis and stopped at time of d/c. - After d/c home on 05/02 pt says she was having a different upper abdomen pain that was constant and radiating to back. She has not been eating much but admits that eating is not making the pain worse. She moved her bowels after d/ c. Denies any fever or chills and no vomiting. She might just have persistent surgical pain. pt was using iv Dilaudid and [place] up until time of her d/c home. - GI Following - Xifaxan and Creon added to regimen - Stools for C. diff were negative. - CT Abd/pelvis reviewed and no obvious complication to recent surgery - KUB (05/06/17) -->Probable ileus cecum dilated to 9 cm. - Pt given Relistor on 05/06 and stopped Dilaudid and [place] - Repeat KUB (05/07/17) --> Nonspecific bowel gas pattern, improved from 05/06 - Ultram and Ofirmev PRN - Full liquids advanced to low residue - Encourage ambulation - Pt finally having liquid bm's after mag citrate...but now she claims this made her feel horrible and causing pain and discomfort. discussed with check kub, scheduled laxatives. ambulate. (2) Dehydration ICD Codes: E86.0 - Dehydration Status: Acute (3) Diabetes ICD Codes: E11.9 - Type 2 diabetes mellitus without complications Status: Chronic (4) Gastroparesis ICD Codes: K31.84 - Gastroparesis Status: Chronic (5) Depression ICD Codes: F32.9 - Major depressive disorder, single episode, unspecified Status: Chronic Problem Qualifiers (1) Diabetes: Angel Luis Mccracken MD May 10, 2017 09:56
[2017-05-10] MEDS ORDERED: DOCUSATE SODIUM 100 MG CAP PO ONE (10:00)
[2017-05-10] MEDS ORDERED: BISACODYL EC 5 MG TABEC PO ONE (10:00)
--- NOTE | 2017-05-10 10:23 | RADRPT ---
EXAM DATE/TIME: 05/10/2017 09:57 [place] COMPARISON: ABDOMEN KUB ONLY, May 07, 2017, 5:16. INDICATIONS : Abdominal pain. MEDICAL HISTORY : Hypercholesterolemia. Hypertension Gastroparesis. Gastritis. GERD. Arthritis, diabetic, Sleep ap hernandez. SURGICAL HISTORY : Cholecystectomy. section. Tubal ligation. Adhesions removed. ENCOUNTER: Subsequent ACUITY: 4 - 6 days PAIN SCORE: 7/10 LOCATION: Abdomen. FINDINGS: Supine view of the abdomen was performed. Marked air within the stomach The abdominal bowel gas paola agus is normal. No abnormal masses, calcifications, or organomegaly is seen. The osseous structures are unremarkable. CONCLUSION: Normal examination with an air-filled stomach. Mendoza Kaba MD on May 10, 2017 at 10:20 Board Certified Radiologist. This report was verified electronically.
[2017-05-10 12:00] VITALS: BP 118/65; PULSE 84; RESP 18; TEMP 97.6; O2SAT 94
[2017-05-10] MEDS ORDERED: ERYTHROMYCIN 250 MG IV SCH (12:00)
[2017-05-10] MEDS: RIFAXIMIN 550 MG TAB PO SCH ×3 (12:54→18:08)
[2017-05-10] MEDS: POLYETHYLENE GLYCOL 17 GM PKG PO SCH ×2 (13:05→20:10)
--- NOTE | 2017-05-10 15:01 | HHI.GIFU ---
Subjective Remarks Reports abdominal cramping that has worsened after taking laxatives. Had 2 liquid BMs with Mag Citrate. (Stephanie Ayala) Objective Vitals I&O Vital Signs Date Time Temp Pulse Resp B/P (MAP) Pulse Ox O2 Delivery O2 Flow Rate FiO2 05/10/17 12:00 97.6 84 18 118/65 (82) 94 05/10/17 08:00 97.4 83 16 120/56 (77) 95 05/10/17 00:20 96.9 88 16 105/58 (74) 95 05/09/17 20:05 97.9 91 16 100/56 (71) 93 05/09/17 16:00 96.6 79 18 125/62 (83) 96 I/O 05/09/17 05/09/17 05/09/17 05/10/17 05/10/17 05/10/17 07:00 15:00 23:00 07:00 15:00 23:00 Intake Total 480 ml 1060 ml 600 ml Balance 480 ml 1060 ml 600 ml Intake Oral 480 ml 1060 ml 600 ml # Voids 1 4 3 3 # Bowel Movements 1 1 0 Laboratory Date/Time Source Procedure Growth Status 05/05/17 18:00 Stool Stool Cryptosporidium Exam - Final NEGATIVE - NO CRYPTOSPORIDIUM ANTIGEN... Complete 05/05/17 18:00 Stool Stool Giardia Antigen (SAJI) - Final NEGATIVE - NO GIARDIA ANTIGEN DETECTE... Complete Imaging Last Impressions Abdomen X-Ray 05/10/17 0000 Signed Impressions: Service Date/Time: Wednesday, May 10, 2017 09:57 - CONCLUSION: Normal examination with an air-filled stomach. Mendoza Kaba MD Abdomen/Pelvis CT 05/04/17 1619 Signed Impressions: Service Date/Time: Thursday, May 04, 2017 17:48 - CONCLUSION: 1. Unremarkable bowel gas pattern with no inflammatory change or obstruction. 2. Mild hepatic steatosis. 3. Status post cholecystectomy. Rolly Padilla MD Physical Exam HEENT: Normocephalic; atraumatic; no jaundice. CHEST: CTA CARDIAC: RRR ABDOMEN: Abdomen soft, mildly distended, mild lower TTP, no hepatosplenomegaly ; bowel sounds are present in all four quadrants. EXTREMITIES: No clubbing, cyanosis, or edema. SKIN: Normal; no rash; no jaundice. 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 (Stephanie Ayala) Assessment and Plan Plan ASSESSMENT - Abdominal pain, likely multifactorial r/t gastroparesis and ileus. EGD/ colonoscopy (04/14) with Dr. Luciano--gastritis, esophagitis (?julia esophagitis), hiatal hernia, poor prep, small internal hemorrhoids. Pathology consistent with chemical gastropathy, moderate to severe acute suppurative esophagitis ( fungal stain is negative and viral inclusions are not observed), biopsy from descending colon with features suggestive of collagenous colitis. Continues to have loose stools. Stool studies negative. S/P Division of median arcuate ligament (04/22/17). EGD with BOTOX injection (04/28/17)---> Botox 100 IU. Injected into pylorus NG tube placed by anesthesia. There was fair amount of residual food in stomach. She was treated with Miralax, Bethanechol, EES, Simethicone and instructed to stay on a full liquid diet. She returns to ER with complaints of a different pain- more cramping in mid abdomen, but still left sided. S/P CT Scan abdomen and pelvis (05/04/17)---> Unremarkable bowel gas pattern with no inflammatory change or obstruction. Mild hepatic steatosis. S/P cholecystectomy. KUB (05/06)--> probable ileus cecum dilated to 9cm. S/P Relistor (05/06)- no bm after relistor, but distention improved- Today's KUB with nonspecific abdomen appearance. Clinically, abdomen is soft with only mild distention. However, she continues to have cramping like pain. Miralax, Xifaxan, Creon, EES, Simethicone, Bethanechol, PPI. Agree with avoiding narcotics. Trial of bentyl. + liquid stool. advancing diet - Collagenous colitis on recent colonoscopy. Consider Entocort at discharged. - Leukocytosis, mild. WBC 13.8. - HTN, DM per attending. 05/09/17 had large liquid BM after mg citrate, miralax lactulose. will adv diet 05/10/17-- Patient reports 2 large liquid BMs after taking Mag Citrate. Reports increased abdominal cramping after laxatives. BRITTA (05/10/17)--Normal examination with an air-filled stomach PLAN - Low residue diet - Continue Bentyl - Creon - Xifaxan - EES - PPI - Bethanechol - Supportive care - Encourage mobility---Ambulate - Avoid narcotics, likely her narcotic use was contributing to her abdominal pain, gastroparesis, and ileus Patient seen and examined by Dr. España and myself and this note is written on his behalf. (Stephanie Ayala) Physician Comments Discussed with primary team, agree with the need to hold all narcotics and meds that affect the motility then repeat YOCASTA. Will follow up with you. (Rosalina España MD) Stephanie Ayala May 10, 2017 15:01 Rosalina España MD May 10, 2017 15:15
[2017-05-10 15:36] LABS: BICARBONATE 25.8 MEQ/L (21.0-32.0); MAGNESIUM 1.8 MG/DL (1.5-2.5); POTASSIUM 4.1 MEQ/L (3.5-5.1)
[2017-05-10 16:00] VITALS: BP 120/60; PULSE 86; RESP 18; TEMP 96.1; O2SAT 95
[2017-05-10] MEDS: NON-FORMULARY DRUG 250 EA in SODIUM CHLORIDE 0.9% INJ 100 ML IV SCH ×2 (16:01→22:00)
[2017-05-10 19:19] VITALS: BP 107/57; PULSE 93; RESP 18; TEMP 98.7; O2SAT 93
[2017-05-10] MEDS: PANTOPRAZOLE SODIUM 40 MG VIAL IV PUSH SCH (20:10)
[2017-05-10] MEDS: DOCUSATE SODIUM 100 MG CAP PO SCH (20:10)
[2017-05-10 23:37] VITALS: BP 99/60; PULSE 84; RESP 18; TEMP 97.5; O2SAT 95
[2017-05-11] MEDS: traMADol HCL 50 MG TAB PO PRN ×4 (04:54→21:23)
[2017-05-11] MEDS: SIMETHICONE 125 MG CHEWABLE TAB PO SCH ×3 (04:54→21:23)
[2017-05-11] MEDS: BETHANECHOL CHL 25 MG TAB PO SCH ×3 (04:54→21:23)
[2017-05-11] MEDS: PROMETHAZINE HCL 25 MG TAB PO PRN ×3 (04:54→19:21)
[2017-05-11] MEDS: NON-FORMULARY DRUG 250 EA in SODIUM CHLORIDE 0.9% INJ 100 ML IV SCH ×3 (05:59→21:20)
[2017-05-11 07:57] VITALS: BP 123/75; PULSE 85; RESP 18; TEMP 98.1; O2SAT 97
[2017-05-11] MEDS: INSULIN ASPART SUPPLEMENTAL SCALE SQ SCH ×4 (08:16→21:20)
[2017-05-11] MEDS ORDERED: LORazepam 0.5 MG TAB PO ONE (08:30)
[2017-05-11] MEDS ORDERED: METOCLOPRAMIDE HCL 10 MG/2 ML VIAL IV ONE (11:18)
[2017-05-11] MEDS: LIPASE/PROTEASE/AMYLASE (24,000/76,000/120,000) CAP PO SCH ×3 (11:19→17:12)
[2017-05-11] MEDS: DICYCLOMINE HCL 20 MG TAB PO SCH ×3 (11:19→17:12)
[2017-05-11] MEDS: RIFAXIMIN 550 MG TAB PO SCH ×3 (11:20→17:12)
[2017-05-11] MEDS: PREGABALIN 75 MG CAP PO SCH ×3 (11:20→17:12)
--- NOTE | 2017-05-11 11:25 | HHI.PR ---
Subjective Remarks Pt complains of abdominal pain and nausea but her tray is next to her bedside and she has eaten everything on her plate Nursing staff reports that the pt ate a large amount of croatian food last night for dinner Pt has GES this morning which noted prominent delayed gastric emptying. Objective Vitals Vital Signs Date Time Temp Pulse Resp B/P (MAP) Pulse Ox O2 Delivery O2 Flow Rate FiO2 05/11/17 07:57 98.1 85 18 123/75 (91) 97 05/10/17 23:37 97.5 84 18 99/60 (73) 95 05/10/17 19:19 98.7 93 18 107/57 (74) 93 05/10/17 16:00 96.1 86 18 120/60 (80) 95 05/10/17 12:00 97.6 84 18 118/65 (82) 94 Result Diagram: 05/07/17 0544 05/10/17 1421 Other Results Laboratory Tests Test 05/10/17 14:21 Blood Urea Nitrogen 6 MG/DL Creatinine 0.75 MG/DL Random Glucose 317 MG/DL Calcium Level 8.8 MG/DL Magnesium Level 1.8 MG/DL Sodium Level 136 MEQ/L Potassium Level 4.1 MEQ/L Chloride Level 101 MEQ/L Carbon Dioxide Level 25.8 MEQ/L Anion Gap 9 MEQ/L Estimat Glomerular Filtration Rate 82 ML/MIN Imaging Last Impressions Abdomen X-Ray 05/06/17 0000 Signed Impressions: Service Date/Time: Saturday, May 06, 2017 08:39 - CONCLUSION: Probable ileus cecum dilated to 9 cm. Wenceslao Burk MD FACR Abdomen/Pelvis CT 05/04/171618 Signed Impressions: Service Date/Time: Thursday, May 04, 2017 17:48 - CONCLUSION: 1. Unremarkable bowel gas pattern with no inflammatory change or obstruction. 2. Mild hepatic steatosis. 3. Status post cholecystectomy. Rolly Padilla MD Last Impressions Abdomen/Pelvis CT 05/04/171618 Signed Impressions: Service Date/Time: Thursday, May 04, 2017 17:48 - CONCLUSION: 1. Unremarkable bowel gas pattern with no inflammatory change or obstruction. 2. Mild hepatic steatosis. 3. Status post cholecystectomy. Rolly Padilla MD Objective Remarks General: NAD, AAOx3 Chest: CTA Cardiac: Regular Abd: +BS, distended, upper abd tenderness Ext: No edema Procedures Panendoscopy with botox injection 04/28/17- Dr. Leavitt Robotic assisted laparoscopic division of median arcuate ligament 04/22/17 Dr. Soares A/P Problem List: (1) Intractable abdominal pain ICD Codes: R10.9 - Unspecified abdominal pain Status: Acute Plan: - Patient is 51 yo female with ongoing problems with abdomen pain. This is her third admission. - She was originally admitted to [facility] from 03/27-04/03 then 04/13-05/02 after transfer to [facility]. - She initially complained of pain LUQ and diarrhea. The abd pain had been constant for 6 weeks, associated with nausea and was worse after eating. She had occasional vomiting , loose stools, and 12 lb weight loss.Pt had an outpt evaluation with GI for the above complaints and had a CT Abd/pelvis which was negative and was given Reglan without improvement. - Pt was then admitted to [facility] in 03/2017 with these same complaints and again had a negative CT scan without evidence of obstruction. She had NGT placed and bowel rest. SBFT was negative as well. She was sent home on EES but presented back to GI with continued issues with abd pain, diarrhea, N/V. - Pt was admitted to [facility] for further workup on 04/13. - Pt underwent EGD/colonoscopy (04/14) with Dr. Luciano --> gastritis, esophagitis (?julia esophagitis), hiatal hernia, poor prep, small internal hemorrhoids. Pathology consistent with chemical gastropathy, moderate to severe acute suppurative esophagitis (fungal stain is negative and viral inclusions are not observed), biopsy from descending colon with features suggestive of collagenous colitis. 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 - She was transferred to [facility] for surgery. - Pt underwent division of median arcuate ligament today with Dr. Soares and Dr. 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 No upper abdominal adhesions. NGT removed and was tolerating liquids. Diet was advanced to soft per GS on but pt having more abd bloating/discomfort and nausea on 04/26 - KUB on 04/26 -->Grossly distended stomach with mildly distended gas-filled small bowel. Colon is normal in caliber. This is a nonspecific pattern. - Pt felt to have some degree of gastroparesis contributing to her symptoms but in light on her recent surgery and narcotic use it is difficult to accurately test for this. Pt had previously been tried on Reglan and EES without much relief. - EGD (04/28/17) performed by Dr. Leavitt- BOTOX injection 100 IU. Injected into pylorus NG tube placed by anesthesia. There was fair amount of residual food in stomach. KUB (04/29/17) --> gastric decompression, NGT placement - Trial of Bethanechol and Trial of EES were given. she was tolerating full liquid diet at time of d/c. - Prednisone 20 mg daily started for collagenous colitis and stopped at time of d/c. - After d/c home on 05/02 pt says she was having a different upper abdomen pain that was constant and radiating to back. She has not been eating much but admits that eating is not making the pain worse. She moved her bowels after d/ c. Denies any fever or chills and no vomiting. She might just have persistent surgical pain. pt was using iv Dilaudid and [place] up until time of her d/c home. - GI Following - Xifaxan and Creon added to regimen - Stools for C. diff were negative. - CT Abd/pelvis reviewed and no obvious complication to recent surgery - KUB (05/06/17) -->Probable ileus cecum dilated to 9 cm. - Pt given Relistor on 05/06 and stopped Dilaudid and [place] - Repeat KUB (05/07/17) --> Nonspecific bowel gas pattern, improved from 05/06 - Ultram and Ofirmev PRN - Full liquids advanced to low residue - Encourage ambulation - Pt finally having liquid BM's after mag citrate reoorts that she had worsening abd pain on 05/10. - Repeat KUB (05/10/17) with significantly distended stomach. - GES noted prominent delayed gastric emptying, no response to Reglan - Cont. erythromycin to IV today and change to oral EES tomorrow - Discussed the importance of a gastroparesis diet, eating smaller more frequent meals. Stressed to the pt that eating large meals will cause her more pain and nausea. - Cont. scheduled laxatives. - Anticipate discharge home tomorrow (2) Dehydration ICD Codes: E86.0 - Dehydration Status: Acute (3) Diabetes ICD Codes: E11.9 - Type 2 diabetes mellitus without complications Status: Chronic (4) Gastroparesis ICD Codes: K31.84 - Gastroparesis Status: Chronic (5) Depression ICD Codes: F32.9 - Major depressive disorder, single episode, unspecified Status: Chronic Assessment and Plan Patient examined. Assessment and plan formulated with Savanna Hemphill PA-C. I agree with the above. Problem Qualifiers (1) Diabetes: Savanna Hemphill May 11, 2017 11:25 Tyson Sapp DO May 13, 2017 10:56
[2017-05-11] MEDS: POLYETHYLENE GLYCOL 17 GM PKG PO SCH ×2 (12:38→21:20)
[2017-05-11] MEDS: DULoxetine HCl DR 60 MG CAP PO SCH (12:39)
[2017-05-11] MEDS: DOCUSATE SODIUM 100 MG CAP PO SCH ×2 (12:39→21:23)
[2017-05-11] MEDS: CARVEDILOL 6.25 MG TAB PO SCH ×2 (12:39→21:23)
[2017-05-11] MEDS: POTASSIUM CHLORIDE 20 MEQ CONTROLLED RELEASE TAB PO SCH (12:39)
[2017-05-11] MEDS: BISACODYL EC 5 MG TABEC PO SCH (12:39)
--- NOTE | 2017-05-11 12:42 | RADRPT ---
EXAM DATE/TIME: 05/11/2017 09:41 [facility] COMPARISON: No previous studies available for comparison. INDICATIONS : Intractable abdominal pain. DOSE: 1 mCi Tc99m Sulfur Colloid Labeled Whole egg PO MEDICATONS: 1.) 5 mg Reglan IV at minutes IMAGIN hrs MEDICAL HISTORY : Gastroesophageal reflux disease. Gastroparesis. Diabetes mellitus type 2. SURGICAL HISTORY : Tubal ligation. Cholecystectomy. ENCOUNTER: Initial ACUITY: 2 days PAIN SCALE: 6/10 LOCATION: Abdomen TECHNIQUE: Following the oral ingestion of radiotracer-labeled meal, dynamic sequential images in the ARMENIAN projec tion were acquired with simultaneous computer acquisition. The data set was decay-corrected. FINDINGS: EMPTYING: There is poor emptying of the tracer activity from the stomach. There does appear to be evidence of r eflux seen during the procedure. By 115 minutes, 50% of the tracer activity is still not out of the s tomach. INTERVENTION: No significant change following Reglan. CONCLUSION: The above findings demonstrate prominent delayed gastric emptying. Yemi Holly MD on May 11, 2017 at 12:38 Board Certified Radiologist. This report was verified electronically.
[2017-05-11] MEDS: ONDANSETRON HCL 4 MG/2 ML VIAL IV PUSH PRN (15:30)
[2017-05-11 16:00] VITALS: BP 108/65; PULSE 92; RESP 18; TEMP 97.8; O2SAT 95
[2017-05-11 20:00] VITALS: BP 114/63; PULSE 71; RESP 17; TEMP 97.6; O2SAT 94
[2017-05-11] MEDS: PANTOPRAZOLE SODIUM 40 MG VIAL IV PUSH SCH (21:23)
[2017-05-12] VITALS: BP 111/62; PULSE 90; RESP 16; TEMP 97.6; O2SAT 96
[2017-05-12] MEDS: ONDANSETRON HCL 4 MG/2 ML VIAL IV PUSH PRN ×2 (00:54→06:48)
[2017-05-12] MEDS: traMADol HCL 50 MG TAB PO PRN ×4 (01:26→19:03)
[2017-05-12 04:00] VITALS: BP 138/80; PULSE 85; RESP 16; TEMP 96; O2SAT 97
[2017-05-12] MEDS: BETHANECHOL CHL 25 MG TAB PO SCH ×3 (04:50→21:57)
[2017-05-12] MEDS: SIMETHICONE 125 MG CHEWABLE TAB PO SCH ×3 (04:50→21:40)
[2017-05-12] MEDS: NON-FORMULARY DRUG 250 EA in SODIUM CHLORIDE 0.9% INJ 100 ML IV SCH (04:51)
[2017-05-12] MEDS: PROMETHAZINE HCL 25 MG TAB PO PRN ×3 (05:48→17:37)
[2017-05-12 07:41] VITALS: BP 113/75; PULSE 89; RESP 18; TEMP 97.7; O2SAT 96
[2017-05-12] MEDS ORDERED: ERYTHROMYCIN ETHYLSUCCINATE 400 MG TAB PO SCH (08:00)
[2017-05-12] MEDS: RIFAXIMIN 550 MG TAB PO SCH ×3 (08:16→17:38)
[2017-05-12] MEDS: PREGABALIN 75 MG CAP PO SCH ×3 (08:16→17:37)
[2017-05-12] MEDS: DULoxetine HCl DR 60 MG CAP PO SCH (08:16)
[2017-05-12] MEDS: LIPASE/PROTEASE/AMYLASE (24,000/76,000/120,000) CAP PO SCH ×3 (08:16→17:37)
[2017-05-12] MEDS: CARVEDILOL 6.25 MG TAB PO SCH ×2 (08:16→21:40)
[2017-05-12] MEDS: POTASSIUM CHLORIDE 20 MEQ CONTROLLED RELEASE TAB PO SCH (08:16)
[2017-05-12] MEDS: DICYCLOMINE HCL 20 MG TAB PO SCH ×3 (08:16→17:37)
[2017-05-12] MEDS: BISACODYL EC 5 MG TABEC PO SCH (08:17)
[2017-05-12] MEDS: DOCUSATE SODIUM 100 MG CAP PO SCH ×2 (08:17→21:40)
[2017-05-12] MEDS: POLYETHYLENE GLYCOL 17 GM PKG PO SCH ×2 (08:17→21:40)
[2017-05-12] MEDS: INSULIN ASPART SUPPLEMENTAL SCALE SQ SCH ×4 (08:29→21:41)
--- NOTE | 2017-05-12 10:51 | HHI.PR ---
Subjective Remarks Pt complains of some nausea this morning after eating breakfast which was cream of wheat and applesauce +Flatus Nursing staff concerned that pts family is bringing in large amounts of outside food that the pt is eating BS are elevated in the 300's today Objective Vitals Vital Signs Date Time Temp Pulse Resp B/P (MAP) Pulse Ox O2 Delivery O2 Flow Rate FiO2 05/12/17 07:41 97.7 89 18 113/75 (88) 96 05/12/17 04:00 96.0 85 16 138/80 (99) 97 05/12/17 00:00 97.6 90 16 111/62 (78) 96 05/11/17 20:00 97.6 71 17 114/63 (80) 94 05/11/17 18:10 16 05/11/17 18:10 16 05/11/17 16:00 97.8 92 18 108/65 (79) 95 05/12/17 05/12/17 05/13/17 15:00 23:00 07:00 Intake Total 100 ml Balance 100 ml IV Total 100 ml Result Diagram: 05/10/17 1421 Other Results Laboratory Tests Test 05/10/17 14:21 Blood Urea Nitrogen 6 MG/DL Creatinine 0.75 MG/DL Random Glucose 317 MG/DL Calcium Level 8.8 MG/DL Magnesium Level 1.8 MG/DL Sodium Level 136 MEQ/L Potassium Level 4.1 MEQ/L Chloride Level 101 MEQ/L Carbon Dioxide Level 25.8 MEQ/L Anion Gap 9 MEQ/L Estimat Glomerular Filtration Rate 82 ML/MIN Imaging Last Impressions Abdomen X-Ray 05/06/17 0000 Signed Impressions: Service Date/Time: Saturday, May 06, 2017 08:39 - CONCLUSION: Probable ileus cecum dilated to 9 cm. Wenceslao Burk MD FACR Abdomen/Pelvis CT 05/04/17 1619 Signed Impressions: Service Date/Time: Thursday, May 04, 2017 17:48 - CONCLUSION: 1. Unremarkable bowel gas pattern with no inflammatory change or obstruction. 2. Mild hepatic steatosis. 3. Status post cholecystectomy. Rolly Padilla MD Last Impressions Abdomen/Pelvis CT 05/04/17 1619 Signed Impressions: Service Date/Time: Thursday, May 04, 2017 17:48 - CONCLUSION: 1. Unremarkable bowel gas pattern with no inflammatory change or obstruction. 2. Mild hepatic steatosis. 3. Status post cholecystectomy. Rolly Padilla MD Objective Remarks General: NAD, AAOx3 Chest: CTA Cardiac: Regular Abd: +BS, distended, upper abd tenderness Ext: No edema Procedures Panendoscopy with botox injection 04/28/17- Dr. Leavitt Robotic assisted laparoscopic division of median arcuate ligament 04/22/17 Dr. Soares A/P Problem List: (1) Intractable abdominal pain ICD Codes: R10.9 - Unspecified abdominal pain Status: Acute Plan: - Patient is 51 yo female with ongoing problems with abdomen pain. This is her third admission. - She was originally admitted [place] [facility] from 03/27-04/03 then 04/13-05/02 after transfer to [facility]. - She initially complained of pain LUQ and diarrhea. The abd pain had been constant for 6 weeks, associated with nausea and was worse after eating. She had occasional vomiting , loose stools, and 12 lb weight loss.Pt had an outpt evaluation with GI for the above complaints and had a CT Abd/pelvis which was negative and was given Reglan without improvement. - Pt was then admitted to [facility] in 03/2017 with these same complaints and again had a negative CT scan without evidence of obstruction. She had NGT placed and bowel rest. SBFT was negative as well. She was sent home on EES but presented back to GI with continued issues with abd pain, diarrhea, N/V. - Pt was admitted to [facility] for further workup on 04/13. - Pt underwent EGD/colonoscopy (04/14) with Dr. Luciano --> gastritis, esophagitis (?julia esophagitis), hiatal hernia, poor prep, small internal hemorrhoids. Pathology consistent with chemical gastropathy, moderate to severe acute suppurative esophagitis (fungal stain is negative and viral inclusions are not observed), biopsy from descending colon with features suggestive of collagenous colitis. 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 - She was transferred to [facility] for surgery. - Pt underwent division of median arcuate ligament today with Dr. Soares and Dr. 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 No upper abdominal adhesions. NGT removed and was tolerating liquids. Diet was advanced to soft per GS on but pt having more abd bloating/discomfort and nausea on 04/26 - KUB on 04/26 -->Grossly distended stomach with mildly distended gas-filled small bowel. Colon is normal in caliber. This is a nonspecific pattern. - Pt felt to have some degree of gastroparesis contributing to her symptoms but in light on her recent surgery and narcotic use it is difficult to accurately test for this. Pt had previously been tried on Reglan and EES without much relief. - EGD (04/28/17) performed by Dr. Leavitt- BOTOX injection 100 IU. Injected into pylorus NG tube placed by anesthesia. There was fair amount of residual food in stomach. KUB (04/29/17) --> gastric decompression, NGT placement - Trial of Bethanechol and Trial of EES were given. she was tolerating full liquid diet at time of d/c. - Prednisone 20 mg daily started for collagenous colitis and stopped at time of d/c. - After d/c home on 05/02 pt says she was having a different upper abdomen pain that was constant and radiating to back. She has not been eating much but admits that eating is not making the pain worse. She moved her bowels after d/ c. Denies any fever or chills and no vomiting. She might just have persistent surgical pain. pt was using iv Dilaudid and [place] up until time of her d/c home. - GI Following - Xifaxan and Creon added to regimen - Stools for C. diff were negative. - CT Abd/pelvis reviewed and no obvious complication to recent surgery - KUB (05/06/17) -->Probable ileus cecum dilated to 9 cm. - Pt given Relistor on 05/06 and stopped Dilaudid and Debary - Repeat KUB (05/07/17) --> Nonspecific bowel gas pattern, improved from 05/06 - Ultram and Ofirmev PRN - Full liquids advanced to low residue - Encourage ambulation - Pt finally having liquid BM's after mag citrate reoorts that she had worsening abd pain on 05/10. - Repeat KUB (05/10/17) with significantly distended stomach. - GES noted prominent delayed gastric emptying, no response to Reglan - Pt changed to oral EES today, to be given 30 mins prior to meals, this was discussed with the nurse - Discussed the importance of a gastroparesis diet, eating smaller more frequent meals. Stressed to the pt that eating large meals will cause her more pain and nausea. Pt was given handouts regarding gastroparesis diet and lifestyle modifications - Pt needs better control of her diabetes as well. Cont. NovoLog SSI, add on Levemir 10 units BID - Cont. scheduled laxatives. - Anticipate discharge home tomorrow (2) Dehydration ICD Codes: E86.0 - Dehydration Status: Acute (3) Diabetes ICD Codes: E11.9 - Type 2 diabetes mellitus without complications Status: Chronic (4) Gastroparesis ICD Codes: K31.84 - Gastroparesis Status: Chronic (5) Depression ICD Codes: F32.9 - Major depressive disorder, single episode, unspecified Status: Chronic Assessment and Plan Patient examined. Assessment and plan formulated with Savanna Hemphill PA-C. I agree with the above. Nursing staff has again related to me that they have observed pt consuming large meals with food brought to hospital. I have strongly encouraged pt to eat small frequent meals instead of large meals. Anticipate d/c to home 05/13/17 Problem Qualifiers (1) Diabetes: Savanna Hemphill May 12, 2017 10:51 Tyson Sapp DO May 13, 2017 10:59
[2017-05-12] MEDS: ERYTHROMYCIN ETHYLSUCCINATE 400 MG TAB PO SCH ×2 (11:47→17:38)
[2017-05-12 12:00] VITALS: BP 116/63; PULSE 84; RESP 18; TEMP 98.3; O2SAT 96
[2017-05-12 17:00] VITALS: BP 116/70; PULSE 90; RESP 16; TEMP 97.6; O2SAT 96
[2017-05-12] MEDS ORDERED: MAGNESIUM CITRATE SOLN 300 ML BTL PO ONE (19:00)
[2017-05-12 19:13] VITALS: BP 113/81; PULSE 102; RESP 16; TEMP 98.3; O2SAT 95
[2017-05-12] MEDS: PANTOPRAZOLE SODIUM 40 MG VIAL IV PUSH SCH (21:40)
[2017-05-12] MEDS: INSULIN DETEMIR 100 UNITS/ML VIAL SQ SCH (21:41)
[2017-05-13] VITALS: BP 128/82; PULSE 91; RESP 20; TEMP 97.6; O2SAT 96
[2017-05-13] MEDS: PROMETHAZINE HCL 25 MG TAB PO PRN ×2 (00:39→09:48)
[2017-05-13] MEDS: traMADol HCL 50 MG TAB PO PRN ×3 (00:39→09:29)
[2017-05-13 04:00] VITALS: BP 105/60; PULSE 86; RESP 20; TEMP 97.5; O2SAT 95
[2017-05-13] MEDS: SIMETHICONE 125 MG CHEWABLE TAB PO SCH (05:04)
[2017-05-13] MEDS: BETHANECHOL CHL 25 MG TAB PO SCH (05:07)
[2017-05-13 07:35] VITALS: BP 100/65; PULSE 85; RESP 18; TEMP 96.1; O2SAT 100
[2017-05-13] MEDS: INSULIN ASPART SUPPLEMENTAL SCALE SQ SCH (08:00)
[2017-05-13] MEDS: PREGABALIN 75 MG CAP PO SCH (08:25)
[2017-05-13] MEDS: DICYCLOMINE HCL 20 MG TAB PO SCH (08:26)
[2017-05-13] MEDS: CARVEDILOL 6.25 MG TAB PO SCH (08:26)
[2017-05-13] MEDS: RIFAXIMIN 550 MG TAB PO SCH (08:26)
[2017-05-13] MEDS: DOCUSATE SODIUM 100 MG CAP PO SCH (08:26)
[2017-05-13] MEDS: LIPASE/PROTEASE/AMYLASE (24,000/76,000/120,000) CAP PO SCH (08:26)
[2017-05-13] MEDS: ERYTHROMYCIN ETHYLSUCCINATE 400 MG TAB PO SCH ×2 (08:26→12:00)
[2017-05-13] MEDS: BISACODYL EC 5 MG TABEC PO SCH (08:26)
[2017-05-13] MEDS: POTASSIUM CHLORIDE 20 MEQ CONTROLLED RELEASE TAB PO SCH (08:26)
[2017-05-13] MEDS: POLYETHYLENE GLYCOL 17 GM PKG PO SCH (08:27)
[2017-05-13] MEDS: ONDANSETRON HCL 4 MG/2 ML VIAL IV PUSH PRN (08:27)
[2017-05-13] MEDS: DULoxetine HCl DR 60 MG CAP PO SCH (08:27)
[2017-05-13] MEDS: INSULIN DETEMIR 100 UNITS/ML VIAL SQ SCH (08:28)
[2017-05-13] MEDS ORDERED: CREON24 PO (08:49)
[2017-05-13] MEDS ORDERED: DICY20TA10 PO (08:49)
[2017-05-13] MEDS ORDERED: XIFA550T4 PO (08:49)
--- NOTE | 2017-05-13 08:51 | HHI.DCPOC ---
Discharge Care Plan Diagnosis: (1) Intractable abdominal pain (2) Dehydration (3) Diabetes (4) Gastroparesis Goals to Promote Your Health * To prevent worsening of your condition and complications * To maintain your health at the optimal level Directions to Meet Your Goals Take your medications as prescribed Follow your dietary instruction Follow activity as directed Keep your appointments as scheduled Take your immunizations and boosters as scheduled If your symptoms worsen call your PCP, if no PCP go to Urgent Care Center or Emergency Room Smoking is Dangerous to Your Health. Avoid second hand smoke Call the 24-hour hour crisis hotline for domestic abuse at Lorie Sesay May 13, 2017 08:51 Tyson Sapp DO May 13, 2017 11:00
--- NOTE | 2017-05-13 09:51 | RADRPT ---
EXAM DATE/TIME: 05/13/2017 08:52 [facility] COMPARISON: ABDOMEN KUB ONLY, May 10, 2017, 9:57. INDICATIONS : Middle abdominal pain, constipation. MEDICAL HISTORY : Hypercholesterolemia. Hypertension Gastroparesis. Gastritis. GERD. Arthritis. Diabetic. Sleep apnea. SURGICAL HISTORY : Cholecystectomy. section. Tubal ligation. Adhesions removed. ENCOUNTER: Subsequent ACUITY: 1 week PAIN SCORE: 7/10 LOCATION: Mid abdomen. FINDINGS: 2 supine frontal views of the abdomen demonstrate air within bowel in a nonobstructive pattern. Stoma ch remains mildly distended with air but less distended than present previously. Clips overlie the ri ght upper quadrant likely related to prior cholecystectomy and a single clip overlies the right pelvi s. No organomegaly or concerning calcifications are seen. Bones demonstrate no acute finding. CONCLUSION: No acute abdominal abnormality is identified. Harshil Reyes MD on May 13, 2017 at 9:48 Board Certified Radiologist. This report was verified electronically.
[2017-05-13] MEDS ORDERED: TRAM50 PO (10:54)
--- NOTE | 2017-05-13 11:10 | HHI.DS ---
Discharge Summary Admission Date May 06, 2017 at 10:58 Discharge Date: May 13, 2017 Admitting Diagnosis intractable abdominal pain, leukocytosis, hemoconcentraion, hypergly (1) Intractable abdominal pain Diagnosis: Principal ICD Codes: R10.9 - Unspecified abdominal pain Status: Acute (2) Dehydration Diagnosis: Principal ICD Codes: E86.0 - Dehydration Status: Acute (3) Diabetes Diagnosis: Secondary ICD Codes: E11.9 - Type 2 diabetes mellitus without complications Status: Chronic (4) Gastroparesis Diagnosis: Secondary ICD Codes: K31.84 - Gastroparesis Status: Chronic (5) Depression Diagnosis: Secondary ICD Codes: F32.9 - Major depressive disorder, single episode, unspecified Status: Chronic Consultants Dr. Savana Luciano, Gastroenterology Procedures Panendoscopy with botox injection 04/28/17- Dr. Leavitt Robotic assisted laparoscopic division of median arcuate ligament 04/22/17 Dr. Soares Brief History Patient is 51 yo female with ongoing problems with abdomen pain. This is her third admission. She was originally admitted to [facility] from 03/27-04/03 then 04/13-05/02 after transfer to [facility]. She initially complained of pain LUQ and diarrhea. The abd pain had been constant for 6 weeks, associated with nausea and was worse after eating. She had occasional vomiting , loose stools, and 12 lb weight loss.Pt had an outpt evaluation with GI for the above complaints and had a CT Abd/pelvis which was negative and was given Reglan without improvement. Pt was then admitted to [facility] in 03/2017 with these same complaints and again had a negative CT scan without evidence of obstruction. She had NGT placed and bowel rest. SBFT was negative as well. She was sent home on EES but presented back to GI with continued issues with abd pain, diarrhea, N/V. Pt was admitted to [facility] for further workup on 04/13. Pt underwent EGD/colonoscopy (04/14) with Dr. Luciano --> gastritis, esophagitis ( ?julia esophagitis), hiatal hernia, poor prep, small internal hemorrhoids. Pathology consistent with chemical gastropathy, moderate to severe acute suppurative esophagitis (fungal stain is negative and viral inclusions are not observed), biopsy from descending colon with features suggestive of collagenous colitis. 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 She was transferred to [facility] for surgery. Pt underwent division of median arcuate ligament today with Dr. Soares and Dr. 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 No upper abdominal adhesions. NGT removed and was tolerating liquids. Diet was advanced to soft per GS on but pt having more abd bloating/discomfort and nausea on 04/26 KUB on 04/26 -->Grossly distended stomach with mildly distended gas-filled small bowel. Colon is normal in caliber. This is a nonspecific pattern. Pt felt to have some degree of gastroparesis contributing to her symptoms but in light on her recent surgery and narcotic use it is difficult to accurately test for this. Pt had previously been tried on Reglan and EES without much relief. EGD (04/28/17) performed by Dr. Leavitt- BOTOX injection 100 IU. Injected into pylorus NG tube placed by anesthesia. There was fair amount of residual food in stomach. KUB (04/29/17) --> gastric decompression, NGT placement Trial of Bethanechol and Trial of EES were given. she was tolerating full liquid diet at time of d/c. - Prednisone 20 mg daily started for collagenous colitis and stopped at time of d/c. After d/c home pt says she was having a different upper abdomen pain that was constant and radiating to back. she has not been eating much but admits that eating is not making the pain worse. she has moved her bowels after d/c. denies any fever or chills and no vomiting. When I arrive pt seems anxious and c/o 8/10 pain after ED gave dilaudid. She feels it is not her typical GP pain. CBC/BMP: 05/10/17 1421 Significant Findings Laboratory Tests Test 05/10/17 14:21 Blood Urea Nitrogen 6 MG/DL (7-18) Random Glucose 317 MG/DL (74-106) Estimat Glomerular Filtration Rate 82 ML/MIN (>89) Imaging Last Impressions Abdomen X-Ray 05/13/17 0800 Signed Impressions: Service Date/Time: Thursday, May 13, 2017 08:52 - CONCLUSION: No acute abdominal abnormality is identified. Harshil Reyes MD Gastric Emptying Nuclear Medicine 05/11/17 0000 Signed Impressions: Service Date/Time: Thursday, May 11, 2017 09:41 - CONCLUSION: The above findings demonstrate prominent delayed gastric emptying. Yemi Holly MD Abdomen/Pelvis CT 05/04/17 1619 Signed Impressions: Service Date/Time: Thursday, May 04, 2017 17:48 - CONCLUSION: 1. Unremarkable bowel gas pattern with no inflammatory change or obstruction. 2. Mild hepatic steatosis. 3. Status post cholecystectomy. Rolly Padilla MD PE at Discharge General: NAD, AAOx3 Chest: CTA Cardiac: Regular Abd: +BS, distended, upper abd tenderness Ext: No edema Hospital Course (1) Intractable abdominal pain ICD Codes: R10.9 - Unspecified abdominal pain Status: Acute Plan: - Patient is 51 yo female with ongoing problems with abdomen pain. This is her third admission. - She was originally admitted to [facility] from 03/27-04/03 then 04/13-05/02 after transfer to [facility]. - She initially complained of pain LUQ and diarrhea. The abd pain had been constant for 6 weeks, associated with nausea and was worse after eating. She had occasional vomiting , loose stools, and 12 lb weight loss.Pt had an outpt evaluation with GI for the above complaints and had a CT Abd/pelvis which was negative and was given Reglan without improvement. - Pt was then admitted to [facility] in 03/2017 with these same complaints and again had a negative CT scan without evidence of obstruction. She had NGT placed and bowel rest. SBFT was negative as well. She was sent home on EES but presented back to GI with continued issues with abd pain, diarrhea, N/V. - Pt was admitted to [facility] for further workup on 04/13. - Pt underwent EGD/colonoscopy (04/14) with Dr. Luciano --> gastritis, esophagitis (?julia esophagitis), hiatal hernia, poor prep, small internal hemorrhoids. Pathology consistent with chemical gastropathy, moderate to severe acute suppurative esophagitis (fungal stain is negative and viral inclusions are not observed), biopsy from descending colon with features suggestive of collagenous colitis. 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 - She was transferred to [facility] for surgery. - Pt underwent division of median arcuate ligament today with Dr. Soares and Dr. 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 No upper abdominal adhesions. NGT removed and was tolerating liquids. Diet was advanced to soft per GS on but pt having more abd bloating/discomfort and nausea on 04/26 - KUB on 04/26 -->Grossly distended stomach with mildly distended gas-filled small bowel. Colon is normal in caliber. This is a nonspecific pattern. - Pt felt to have some degree of gastroparesis contributing to her symptoms but in light on her recent surgery and narcotic use it is difficult to accurately test for this. Pt had previously been tried on Reglan and EES without much relief. - EGD (04/28/17) performed by Dr. Leavitt- BOTOX injection 100 IU. Injected into pylorus NG tube placed by anesthesia. There was fair amount of residual food in stomach. KUB (04/29/17) --> gastric decompression, NGT placement - Trial of Bethanechol and Trial of EES were given. she was tolerating full liquid diet at time of d/c. - Prednisone 20 mg daily started for collagenous colitis and stopped at time of d/c. - After d/c home on 05/02 pt says she was having a different upper abdomen pain that was constant and radiating to back. She has not been eating much but admits that eating is not making the pain worse. She moved her bowels after d/ c. Denies any fever or chills and no vomiting. She might just have persistent surgical pain. pt was using iv Dilaudid and [place] up until time of her d/c home. - GI Following - Xifaxan and Creon added to regimen - Stools for C. diff were negative. - CT Abd/pelvis reviewed and no obvious complication to recent surgery - KUB (05/06/17) -->Probable ileus cecum dilated to 9 cm. - Pt given Relistor on 05/06 and stopped Dilaudid and [place] - Repeat KUB (05/07/17) --> Nonspecific bowel gas pattern, improved from 05/06 - Ultram and Ofirmev PRN - Full liquids advanced to low residue - Encourage ambulation - Pt finally having liquid BM's after mag citrate reoorts that she had worsening abd pain on 05/10. - Repeat KUB (05/10/17) with significantly distended stomach. - GES noted prominent delayed gastric emptying, no response to Reglan - Pt changed to oral EES today, to be given 30 mins prior to meals, this was discussed with the nurse - Discussed the importance of a gastroparesis diet, eating smaller more frequent meals. Stressed to the pt that eating large meals will cause her more pain and nausea. Pt was given handouts regarding gastroparesis diet and lifestyle modifications - Pt needs better control of her diabetes as well. Cont. NovoLog SSI, add on Levemir 10 units BID, pt will resume outpt regimen - Pt to f/u with her PCP upon discharge for her DM2. - F/u with Gastroenterology in 2 weeks, Dr. Luciano (2) Dehydration ICD Codes: E86.0 - Dehydration Status: Acute - resolved (3) Diabetes ICD Codes: E11.9 - Type 2 diabetes mellitus without complications Status: Chronic - Pt to f/u with her PCP, Dr. Estrada, in 1 week - adherence to diabetic diet and medication regimen will be important for pt's gastroparesis. (4) Gastroparesis ICD Codes: K31.84 - Gastroparesis Status: Chronic (5) Depression ICD Codes: F32.9 - Major depressive disorder, single episode, unspecified Pt Condition on Discharge: Stable Discharge Disposition: Discharge Home Discharge Instructions DIET: Follow Instructions for: Heart Healthy Diet, Diabetic Diet Additional Diet Instructions: Pt has been advised to consume small frequent meals. NOT large meals. NO binge eating. Activities you can perform: Weight Bearing as Eduardo Follow up Referrals: Gastroenterology - 2 Weeks with Savana Luciano MD PCP Follow-up - [address] Estrada New Medications: Dicyclomine (Dicyclomine) 20 Mg Tab 20 MG PO TID for IBS, #90 TAB 0 Refills Pancrelipase (Creon) 24,000-76,000-120,000 Units Cap 1 CAP PO TID for pancreatic supplement, #90 CAP 0 Refills Rifaximin (Xifaxan) 550 Mg Tab 550 MG PO TID for GI, #90 TAB 0 Refills Tramadol (Ultram) 50 Mg Tab 50 MG PO Q4H PRN for pain, #7 TAB 0 Refills Continued Medications: Bethanechol (Urecholine) 25 Mg Tab 25 MG PO Q8HR for GERD, #90 TAB 0 Refills Carvedilol (Carvedilol) 6.25 Mg Tab 6.25 MG PO BID, #60 TAB 0 Refills Dapagliflozin (Farxiga) 5 Mg Tab 5 MG PO DAILY for Blood Sugar Management, #30 TAB [address] (Cymbalta DR) 60 Mg Capdr 60 MG PO DAILY, #30 CAP 0 Refills Erythromycin Base (Erythromycin Base) 250 Mg Tab 250 MG PO TIDAC for Infection for 90 Days, TAB 0 Refills Insulin Aspart Inj (Novolog Inj) 1,000 Unit/10 Ml Vial 0 SQ DIRECTED for Blood Sugar Management, #10 ML 0 Refills Sliding Scale as directed. Insulin Degludec Inj (Tresiba Flextouch Pen Inj) 600 unit/3 ML Pen 50 UNITS SQ DAILY for Blood Sugar Management, #9 ML 0 Refills Pantoprazole (Pantoprazole) 40 Mg Tab 40 MG PO DAILY for GERD, #30 TAB Potassium Chloride Microencaps (Potassium Chloride Microencaps) 20 Meq Tab 20 MEQ PO DAILY for hyokalemia, #30 TAB 0 Refills Pregabalin (Lyrica) 75 Mg Cap 75 MG PO TID, #90 CAP 0 Refills Promethazine (Phenergan) 25 Mg Tablet 25 MG PO Q6H PRN for NAUSEA OR VOMITING, #20 TAB 0 Refills Simethicone (Gas Relief Maximum Streng) 125 Mg Chw 125 MG PO Q8H for gas/bloating, #90 EA 0 Refills Tyson Sapp DO May 13, 2017 11:10
[2017-05-13] MEDS ORDERED: SOD PHOSPHATE/SOD BIPHOSPHATE (ADULT) ENEMA 133ML PR PRN (11:45)
[2017-05-13 12:00] VITALS: BP 115/71; PULSE 83; RESP 18; TEMP 97.9; O2SAT 95
== END 2017-05-13 13:22 | disposition home or self-care (01) | DRG 392 ==
LOC: NEPC 14:08 → NEDA 19:03 → NEPHCDU 20:09 → OBSVTOIN 05-06 10:58 → N06A 05-07 14:10
PROVIDERS: ADMIT Hospitalist; ATTEND Hospitalist
DX: K31.84 Gastroparesis (principal); I77.4 Celiac artery compression syndrome; E11.43 Type 2 diabetes mellitus with diabetic autonomic (poly)neuropathy; K56.7 Ileus, unspecified; K76.0 Fatty (change of) liver, not elsewhere classified; I10 Essential (primary) hypertension; F32.9 Major depressive disorder, single episode, unspecified; M19.90 Unspecified osteoarthritis, unspecified site; E78.00 Pure hypercholesterolemia, unspecified; G47.30 Sleep apnea, unspecified; Z79.4 Long term (current) use of insulin; K44.9 Diaphragmatic hernia without obstruction or gangrene; K64.8 Other hemorrhoids; K21.0 Gastro-esophageal reflux disease with esophagitis; K52.831 Collagenous colitis; E86.0 Dehydration; K29.70 Gastritis, unspecified, without bleeding; R19.7 Diarrhea, unspecified; Z90.49 Acquired absence of other specified parts of digestive tract; K30 Functional dyspepsia
CPT/HCPCS: 74000; 74177; 78264; 80048; 80053; 81001; 82948; 83690; 83735; 85025; 87328; 87329; 87425; 87493; 87506; 96361; 96372; 96374; 96375; 96376; A9541; C9113; G0378; J0131; J1170; J1815; J2212; J2405; J2765; J7030; Q0169; Q9967

== ENCOUNTER 2017-05-16 08:25 | Observation (INO) | payer OTHER ==
[2017-05-16] VITALS (7 sets, daily range): BP systolic 129–187; BP diastolic 59–107; PULSE 90–117; RESP 16–18; TEMP 96–98.3; O2SAT 95–98
[~2017-05-16] VITALS: Ht 162.6 cm; Wt 92.1 kg
[~2017-05-16 08:25] MED LIST changes: +CREON24 PO; +DICY20TA10 PO; +INSU1INJ13 SQ; -INSU1INJ14 SQ; +TRAM50 PO; +XIFA550T4 PO
[2017-05-16] MEDS ORDERED: SODIUM CHLOR 0.9% 1000 ML INJ 1,000 ML IV ONE ×2 (09:15→10:45)
[2017-05-16] MEDS ORDERED: PANTOPRAZOLE SODIUM 40 MG VIAL IV PUSH ONE (09:15)
[2017-05-16] MEDS ORDERED: ONDANSETRON HCL 4 MG/2 ML VIAL IV PUSH ONE (09:15)
[2017-05-16 09:16] LABS: AUTOMATED NEUTROPHIL # 7.6 TH/MM3 (1.8-7.7); BASOPHIL # 0.1 TH/MM3 (0-0.2); BASOPHIL % 0.5 % (0.0-2.0); EOSINOPHIL # 0.2 TH/MM3 (0-0.4); EOSINOPHIL % 1.7 % (0.0-4.0); HEMATOCRIT 47.4 % (35.0-46.0); HEMO FLAGS DIFF FINAL; LYMPH % 19.3 % (9.0-44.0); LYMPHOCYTE # 2.1 TH/MM3 (1.0-4.8); MEAN CELL VOLUME 84.8 FL (80.0-100.0); MEAN CORPUSCULAR HEMOGLOBIN 29.2 PG (27.0-34.0); MEAN CORPUSCULAR HGB CONC 34.4 % (32.0-36.0); MONO % 5.4 % (0.0-8.0); NEUT % 73.1 % (16.0-70.0); PLATELET COUNT 389 TH/MM3 (150-450); RED BLOOD COUNT 5.59 MIL/MM3 (4.00-5.30); RED CELL DISTRIBUTION WIDTH 12.8 % (11.6-17.2); WHITE BLOOD COUNT 10.6 TH/MM3 (4.0-11.0)
--- NOTE | 2017-05-16 09:29 | PD ---
HPI Chief Complaint: Abdominal Pain Time Seen by Provider: 09:02 Travel History International Travel<30 days: No Contact w/Intl Traveler<30days: No Traveled to known affect area: No History of Present Illness HPI 51-year-old female presents with persistent upper abdominal pain and nonbloody emesis and diarrhea since she was discharged from the hospital on Thursday. She states that the pain is severe. Her help supplement history. She is taking Phenergan at home for the vomiting and tramadol for pain and they are not helping. They confirm extensive workup and recent hospitalization. No change in symptoms since discharge including no fever or other concurrent complaints. is concerned patient in past has received Dilaudid for pain and that would make her situation worse were then she would start getting constipated and having more issues. History is limited on initial evaluation secondary to patient's pain and has been help supplement history. PFSH Past Medical History Arthritis: Yes Asthma: No Autoimmune Disease: No Blood Disorders: No Anxiety: No Depression: Yes Heart Rhythm Problems: No Cancer: No Cardiovascular Problems: Yes (htn on meds) High Cholesterol: Yes Chemotherapy: No Chest Pain: Yes Congestive Heart Failure: No COPD: No Cerebrovascular Accident: No Diabetes: Yes Patient Takes Glucophage: No Diminished Hearing: No Endocrine: Yes Gastrointestinal Disorders: Yes (GASTROPARESIS, GASTRITIS ) GERD: Yes Glaucoma: No Genitourinary: Yes Headaches: Yes Hepatitis: No Hiatal Hernia: No Hypertension: Yes Immune Disorder: No Implanted Vascular Access Dvce: No Kidney Stones: No Musculoskeletal: No Neurologic: Yes (NEUROPATHY IN BILATERAL FEET) Psychiatric: Yes Reproductive: Yes (PRONE TO FREQUESNT YEAST INFECTIONS) Respiratory: Yes Immunizations Current: No Migraines: No Myocardial Infarction: No Radiation Therapy: No Renal Failure: No Seizures: No Sleep Apnea: Yes Thyroid Disease: No Ulcer: No ?: Not LMP: menapause Tubal Ligation: Yes Past Surgical History Abdominal Surgery: Yes (GALLBLADDER, ADHESIONS REMOVED, LAP PROCEDURE FOR CELIAC ARTERY) AICD: No Cardiac Surgery: No Section: Yes (X 2) Cholecystectomy: Yes Ear Surgery: No Eye Surgery: No Genitourinary Surgery: No Gynecologic Surgery: Yes (2 C SECTIONS, TUBAL LIGATION ) Neurologic Surgery: No Oral Surgery: Yes (WISDOM TEETH ) Pacemaker: No Thoracic Surgery: No Other Surgery: Yes (LAPAROSCOPY) Social History Alcohol Use: Yes (on occasion) Tobacco Use: No Substance Use: No Allergies-Medications (Allergen,Severity, Reaction): Coded Allergies: Sulfa (Sulfonamide Antibiotics) (Unverified Allergy, Severe, BREATHING DIFFICULTIES, 05/16/17) gabapentin (Verified Allergy, Severe, AMNESIA, 05/16/17) Reported Meds & Prescriptions Reported Meds & Active Scripts Active Ultram (Tramadol HCl) 50 Mg Tab 50 Mg PO Q4H PRN Creon (Amylase/Lipase/Protease) 24,000-76,000-120,000 Units Cap 1 Cap PO TID Dicyclomine (Dicyclomine HCl) 20 Mg Tab 20 Mg PO TID Xifaxan (Rifaximin) 550 Mg Tab 550 Mg PO TID Phenergan (Promethazine HCl) 25 Mg Tablet 25 Mg PO Q6H PRN Gas Relief Maximum Streng (Simethicone) 125 Mg Chw 125 Mg PO Q8H Urecholine (Bethanechol Chloride) 25 Mg Tab 25 Mg PO Q8HR Potassium Chloride Microencaps 20 Meq Tab 20 Meq PO DAILY Erythromycin Base 250 Mg Tab 250 Mg PO TIDAC 90 Days Pantoprazole (Pantoprazole Sodium) 40 Mg Tab 40 Mg PO DAILY Reported Tresiba Flextouch Pen Inj (Insulin Degludec Inj) 600 unit/3 ML Pen 50 Units SQ DAILY Farxiga (Dapagliflozin) 5 Mg Tab 5 Mg PO DAILY Novolog Inj (Insulin Aspart) 1,000 Unit/10 Ml Vial 0 SQ DIRECTED Sliding Scale as directed. Lyrica (Pregabalin) 75 Mg Cap 75 Mg PO TID Carvedilol 6.25 Mg Tab 6.25 Mg PO BID Cymbalta DR (Duloxetine HCl) 60 Mg Capdr 60 Mg PO DAILY Review of Systems Except as stated in HPI: all other systems reviewed are Neg Physical Exam Narrative GENERAL: Well-nourished, well-developed patient. Tearful and uncomfortable SKIN: Warm and dry. HEAD: Normocephalic and atraumatic. EYES: No injection or drainage. ENT: No nasal drainage noted. NECK: Supple, trachea midline. CARDIOVASCULAR: Regular rate and rhythm RESPIRATORY: Breath sounds equal bilaterally. No accessory muscle use. GASTROINTESTINAL: Abdomen soft, tender in epigastric area, nondistended. No rebound EXTREMITIES: No edema. NEUROLOGICAL: Awake and alert. Moves all extremities. Normal speech. Data Data Last Documented VS Vital Signs Date Time Temp Pulse Resp B/P (MAP) Pulse Ox O2 Delivery O2 Flow Rate FiO2 05/16/17 10:01 98 16 149/80 (103) 98 Room Air 05/16/17 08:40 97.3 Orders Orders Urinalysis - C+S If Indicated (05/16/17 08:53) Ed Urine Pregnancytest Poc (05/16/17 08:53) Complete Blood Count With Diff (05/16/17 09:08) Comprehensive Metabolic Panel (05/16/17 09:08) Lipase (05/16/17 09:08) Iv Access Insert/Monitor (05/16/17 09:08) Oximetry (05/16/17 09:08) Sodium Chlor 0.9% 1000 Ml Inj (Ns 1000 M (05/16/17 09:15) Pantoprazole Inj (Protonix Inj) (05/16/17 09:15) Ondansetron Inj (Zofran Inj) (05/16/17 09:15) Promethazine Inj (Phenergan Inj) (05/16/17 10:15) Sodium Chlor 0.9% 1000 Ml Inj (Ns 1000 M (05/16/17 10:45) Beta Hydroxybutyrate (Acetone) (05/16/17 10:38) Basic Metabolic Panel (Bmp) (05/16/17 11:36) Admit Order (Ed Use Only) (05/16/17 12:05) Labs Laboratory Tests Test 05/16/17 09:09 05/16/17 10:56 05/16/17 12:00 White Blood Count 10.6 TH/MM3 Red Blood Count 5.59 MIL/MM3 Hemoglobin 16.3 GM/DL Hematocrit 47.4 % Mean Corpuscular Volume 84.8 FL Mean Corpuscular Hemoglobin 29.2 PG Mean Corpuscular Hemoglobin Concent 34.4 % Red Cell Distribution Width 12.8 % Platelet Count 389 TH/MM3 Mean Platelet Volume 7.8 FL Neutrophils (%) (Auto) 73.1 % Lymphocytes (%) (Auto) 19.3 % Monocytes (%) (Auto) 5.4 % Eosinophils (%) (Auto) 1.7 % Basophils (%) (Auto) 0.5 % Neutrophils # (Auto) 7.6 TH/MM3 Lymphocytes # (Auto) 2.1 TH/MM3 Monocytes # (Auto) 0.6 TH/MM3 Eosinophils # (Auto) 0.2 TH/MM3 Basophils # (Auto) 0.1 TH/MM3 CBC Comment DIFF FINAL Differential Comment Blood Urea Nitrogen 9 MG/DL 7 MG/DL Creatinine 0.92 MG/DL 0.68 MG/DL Random Glucose 351 MG/DL 236 MG/DL Total Protein 8.6 GM/DL Albumin 3.8 GM/DL Calcium Level 9.2 MG/DL 8.1 MG/DL Alkaline Phosphatase 121 U/L Aspartate Amino Transf (AST/SGOT) 17 U/L Alanine Aminotransferase (ALT/SGPT) 28 U/L Total Bilirubin 1.2 MG/DL Sodium Level 132 MEQ/L 138 MEQ/L Potassium Level 4.4 MEQ/L 4.1 MEQ/L Chloride Level 98 MEQ/L 106 MEQ/L Carbon Dioxide Level 16.6 MEQ/L 19.4 MEQ/L Anion Gap 17 MEQ/L 13 MEQ/L Estimat Glomerular Filtration Rate 65 ML/MIN 92 ML/MIN Lipase 184 U/L B-Hydroxybutyrate 2.65 MMOL/L [facility] Medical Decision Making Medical Screen Exam Complete: Yes Emergency Medical Condition: Yes Medical Record Reviewed: Yes (past history confirmed, recent GI and general surgery notes reviewed, recent discharge summary noted) Interpretation(s) CBC & BMP Diagram 05/16/17 09:09 Total Protein 8.6 H, Albumin 3.8, Calcium Level 9.2, Alkaline Phosphatase 121 H , Aspartate Amino Transf (AST/SGOT) 17, Alanine Aminotransferase (ALT/SGPT) 28, Total Bilirubin 1.2 H CBC & BMP Diagram 05/16/17 09:09 Total Protein 8.6 H, Albumin 3.8, Calcium Level 9.2, Alkaline Phosphatase 121 H , Aspartate Amino Transf (AST/SGOT) 17, Alanine Aminotransferase (ALT/SGPT) 28, Total Bilirubin 1.2 H 05/16/17 12:00 Calcium Level 8.1 #L Differential Diagnosis Gastroparesis, gastritis, renal failure, electrolyte abnormality..... Narrative Course Will check blood work and urinalysis and dose with IV fluids, Protonix and Zofran and reevaluate. Recent hospitalization and extensive records reviewed. With recent imaging without emergent findings. Acetone was added on after depressed bicarbonate noted. Will repeat IV fluid bolus and discuss with primary Repeat BMP noted. Patient will be placed in observation with [facility], patient updated Physician Communication Physician Communication dr ball states to admit to [facility] with ivf and insulin dr jose guadalupe lester agrees to admit and insulin based on repeat bmp Diagnosis Primary Impression: Intractable vomiting Qualified Codes: R11.2 - Nausea with vomiting, unspecified Additional Impressions: Poorly controlled diabetes mellitus Gastroparesis Admitting Information Admitting Physician Requests: Observation Angely Oliveira MD May 16, 2017 09:29
[2017-05-16 09:56] LABS: BICARBONATE 16.6 MEQ/L (21.0-32.0); BLOOD UREA NITROGEN 9 MG/DL (7-18)
[2017-05-16 09:59] LABS: ALT (GPT) 28 U/L (10-53); AST (GOT) 17 U/L (15-37); GLOMERULAR FILTRATION RATE 65 ML/MIN (>89)
[2017-05-16 10:00] LABS: ANION GAP 17 MEQ/L (5-15); CHLORIDE 98 MEQ/L (98-107); POTASSIUM 4.4 MEQ/L (3.5-5.1); SODIUM (NA) 132 MEQ/L (136-145); TOTAL BILIRUBIN ADULT 1.2 MG/DL (0.2-1.0)
[2017-05-16 10:02] LABS: ALKALINE PHOSPHATASE 121 U/L (45-117)
[2017-05-16] MEDS ORDERED: PROMETHAZINE INJ 25 MG/ML VIAL IM ONE (10:15)
[2017-05-16] MEDS ORDERED: SODIUM CHLOR 0.9% 1000 ML INJ 1,000 ML IV SCH (12:19)
[2017-05-16] MEDS ORDERED: GLUCAGON 1 MG/ML VIAL OTHER PRN (12:30)
[2017-05-16] MEDS ORDERED: NALOXONE HCL 0.4 MG/ML AMP IV PUSH PRN (12:30)
[2017-05-16] MEDS ORDERED: SODIUM CHLORIDE 0.9% FLUSH 10 ML FLUSH IV FLUSH PRN (12:30)
[2017-05-16] MEDS ORDERED: DEXTROSE 50% IN WATER 50 ML VIAL(D50) IV PUSH PRN (12:30)
[2017-05-16 12:36] LABS: BICARBONATE 19.4 MEQ/L (21.0-32.0); POTASSIUM 4.1 MEQ/L (3.5-5.1)
[2017-05-16] MEDS ORDERED: ACETAMINOPHEN 325 MG TAB PO PRN (13:00)
[2017-05-16] MEDS: DICYCLOMINE HCL 20 MG TAB PO SCH ×2 (13:02→16:19)
[2017-05-16] MEDS: LIPASE/PROTEASE/AMYLASE (24,000/76,000/120,000) CAP PO SCH ×2 (14:00→16:18)
[2017-05-16] MEDS: ERYTHROMYCIN EC 250 MG TABEC PO SCH ×2 (14:00→14:06)
[2017-05-16] MEDS: SIMETHICONE 125 MG CHEWABLE TAB PO SCH ×2 (14:00→21:12)
[2017-05-16] MEDS: PREGABALIN 75 MG CAP PO SCH ×2 (14:02→14:06)
[2017-05-16] MEDS: BETHANECHOL CHL 25 MG TAB PO SCH ×2 (14:06→21:12)
[2017-05-16] MEDS: traMADol HCL 50 MG TAB PO PRN ×3 (14:06→22:34)
[2017-05-16] MEDS: PROMETHAZINE HCL 25 MG TAB PO PRN (14:46)
[2017-05-16] MEDS ORDERED: PROCHLORPERAZINE 25 MG SUPP RECTAL PRN (15:00)
[2017-05-16 15:30] LABS: BLOOD, URINE NEG (NEG); GLUCOSE,URINE 1000 OR GREATER mg/dL (NEG); KETONE, URINE 80 OR GREATER mg/dL (NEG); NITRITE,URINE NEG (NEG); PH, URINE 5.5 (5.0-8.5)
[2017-05-16 15:39] LABS: METHOD OF COLLECTION CLEAN CATCH
[2017-05-16 15:40] LABS: COMMENT (UR) CULT NOT INDICATED; CULTURE IF INDICATED CULT NOT INDICATED; SQUAMOUS EPITHELIAL CELL URINE 0-5 /hpf (0-5); URINE COLOR YELLOW (YELLW/STRAW)
--- NOTE | 2017-05-16 16:06 | MH ---
cc: MAGGIE OLEARY DATE OF ADMISSION: 05/16/2017 ADMITTING DIAGNOSIS Abdominal pain, emesis and diarrhea since discharge from the hospital two days ago. HISTORY OF PRESENT ILLNESS The patient has had multiple medical admissions in the last six weeks for abdominal pain, nausea, vomiting and diarrhea. She has had several evaluations by GI including endoscopies, colonoscopies, CTAs, gastric emptying studies. Her endoscopies and colonoscopies were significant for gastritis, esophagitis. The pathology was consistent with chemical gastropathy, [id number] acute suppurative esophagitis and features suggesting of collagenous colitis in the colon for which she was treated with prednisone. 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 She then underwent division of the median arcuate ligament with Dr. Soares and Dr. Kathleen on 04/22 with surgical findings demonstrating a tight band of diaphragmatic muscle constricting the proximal celiac artery. There were no apparent abdominal adhesions. She did have a gastric emptying scan that was consistent with gastroparesis. She had undergone an endoscopy on 04/[address] Krishnamurthy with which she was given a Botox injection into the pylorus. After the patient's last admission to the hospital, she was discharged home two days ago, she says at the time of the discharge she was still having some issues with nausea, but apparently per report she was tolerating food. She also had rather significant constipation and had required Fleets enemas and multiple medications in order to move her bowels. She states since she has been home she has been having loose stools. It was felt that some of her constipation might have been secondary to narcotic use secondary to the pain. She says takes Dilaudid fairly regularly around the clock while she is in the hospital for pain control. On her last admission, she had actually been transitioned over to Tramadol 50 mg p.o. for the last several days prior to discharge, and that is what she states she has been taking at home. According to the patient and her , she ate very little the day after discharge maybe some cereal that evening. According to the , yesterday she did not eat. She does spend the day alone at home however she states she did not eat until the evening time when he made some Christina Rice of the [employer] envelop. He said maybe she had eaten maybe a third of it. She was continuing on her diabetic medications including the Farxiga and Tresiba after she was discharged. However, she was not actually using these medications while she was in the hospital. She says the last time she checked her sugar was last evening and it was 166. She tells me she has been urinating well. She does not relay increased or any excessive urination. Today she does state she has not actually urinated that much. She tells me she does feel that the surgery did relieve some of the bloating and discomfort that she had in her abdomen. Now she states her problem is more a nausea and cramping sensation. She does state she was taking all the new medications she was discharged on. PAST MEDICAL HISTORY Significant for - 1. Diabetes. 2. Peripheral neuropathy. 3. Depression. 4. Hypertension. 5. Gastroparesis as stated. PAST SURGICAL HISTORY 1. Cholecystectomy. 2. section. 3. LEEP procedure. 4. Recently division of the median arcuate ligament by Dr. Soares and Dr. Kathleen. ALLERGIES SULFA AND GABAPENTIN. MEDICATIONS Medications that she was discharged or prior two days ago were - 1. Phenergan 25 mg every 6 hours p.r.n. nausea. 2. Erythromycin 250 mg tablets three times a day. 3. Rifaximin 550 mg three times a day. 4. Bethanechol 25 mg p.o. q.8 hours. 5. Dicyclomine 20 mg three times a day. 6. Coreg 6.25 mg twice a day. 7. Tramadol 50 mg q.4 hours p.r.n. pain. 8. Lyrica 75 mg three times a day. 9. Cymbalta 60 mg daily. 10. Potassium 20 mEq daily. 11. Simethicone 125 mg chew. 12. Creon one cap three times a day. 13. Pantoprazole 40 mg daily. 14. Insulin sliding scale. 15. Tresiba 50 units daily. 16. Farxiga 5 mg daily. HABITS She only consumes alcohol rarely. She does not smoke. SOCIAL HISTORY She is . 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 She is independent of activities of daily living. Her is usually accompanying her in the emergency room and during her hospital stays. REVIEW OF SYSTEMS See HPI. No chest pain, shortness of breath. No cough. No palpitations. She has chronic pain in her extremities. PHYSICAL Lying in Ed cot, anxious Normocephalic atraumatic, moist oral mucosa Neck supple Lungs clear to auscultation bilaterally Heart regular rate and rhythm, not tachycardic Abdomen Good bowel sounds in all quadrants , soft and depressible, midepigastric tenderness to palpation , healed laparoscopic incisions Extremities no edema LABORATORY DATA Lab work that was done on presentation showed a white count of 10.6, hemoglobin of 16.3, hematocrit of 47.4, platelet count of 389. Sodium of 132, carbon dioxide of 16.6, BUN of 9, random glucose of 351, total bilirubin of 1.2, alkaline phosphatase of 121, total protein was 8.6, beta hydroxybutyrate was 2.65. ASSESSMENT AND PLAN A 51-year-old female patient who presented with nausea and vomiting and poorly controlled diabetes with gastroparesis. At this point, I spent a lot of time talking with the patient and her . Apparently, she was tolerating food when she left the hospital. It was not clear to me what the difference was between her hospitalization and being at home for the last two days. We discussed diet, we reviewed the gastroparesis, that she was not able to eat large amounts of foods, that her diet had to consist of small meals. She does relate significant pain. However, review of the hospital records showed that the Dilaudid actually appears to have been discontinued and she has been essentially maintained on the tramadol during her prior hospitalization and she was discharged on this dose. She gets very anxious when we discussed trying to avoid any narcotics secondary to the complications of constipation. At this time, I will resume her home medication regimen, put her on clear liquids and hydrate her and see how she does over the next 24 hours. For her hyperglycemia, she did receive some saline and she did have a repeat BMP that was already showing improvement in her electrolytes. We will continue her with her IV fluids as stated and insulin sliding scale. At this point, she is not showing any significant electrolyte abnormalities. I will go ahead and repeat her BMP in the course of the next 6 hours to be sure that she continues to respond adequately. Her hemoglobin A1c on March 24 was 10.7 which shows poor control of her diabetes, which certainly can be causing her gastroparesis. For her neuropathy, I will continue her Lyrica. For her depression, we will continue the Cymbalta. I did discuss with her and her I am not sure what all I have to offer her at this point in this admission. I will consult GI to see if they have any other recommendations aside from supportive care. I do not know if she is somebody that may end of needing a referral to a tertiary care center. MD PETER Dolan/SHANNAN /2:10 PM /2:29 PM MTDJorge
[2017-05-16] MEDS: RIFAXIMIN 550 MG TAB PO SCH (16:19)
[2017-05-16] MEDS: ENOXAPARIN SODIUM 40 MG/0.4 ML SYRINGE SQ SCH (16:20)
[2017-05-16] MEDS ORDERED: INSULIN ASPART SUPPLEMENTAL SCALE SQ SCH (17:00)
[2017-05-16] MEDS: ONDANSETRON HCL 4 MG/2 ML VIAL IVP PRN ×2 (17:30→23:50)
--- NOTE | 2017-05-16 18:21 | RADRPT ---
EXAM DATE/TIME: 05/16/2017 18:02 [facility] COMPARISON: ABDOMEN KUB ONLY, May 13, 2017, 8:52. INDICATIONS : Abdomen pain, nausea MEDICAL HISTORY : Gastroparesis SURGICAL HISTORY : Cholecystectomy. section. ENCOUNTER: Initial ACUITY: 2 days PAIN SCORE: 8/10 LOCATION: Bilateral abdomen FINDINGS: Supine view of the abdomen was performed. The abdominal bowel gas pattern is normal. No abnormal ma sses, calcifications, or organomegaly is seen. The osseous structures are unremarkable. Surgical cli ps in the right upper abdominal quadrant are characteristic of prior cholecystectomy. Single clip in the right pelvis is probably associated with the same. CONCLUSION: Radiographically benign abdomen without obstruction or pneumoperitoneum. Kev Lopez MD on May 16, 2017 at 18:17 Board Certified Radiologist. This report was verified electronically.
[2017-05-16 18:47] LABS: POTASSIUM 3.7 MEQ/L (3.5-5.1)
[2017-05-16 18:51] LABS: BICARBONATE 21.1 MEQ/L (21.0-32.0)
[2017-05-16] MEDS: SODIUM CHLORIDE 0.9% FLUSH 10 ML FLUSH IV FLUSH SCH (21:11)
[2017-05-16] MEDS: NS + KCL 20 MEQ INJ 1,000 ML IV SCH (21:11)
[2017-05-16] MEDS: CARVEDILOL 6.25 MG TAB PO SCH (21:12)
[2017-05-16] MEDS: INSULIN ASPART SUPPLEMENTAL SCALE SQ SCH (21:13)
[2017-05-16] MEDS: INSULIN DETEMIR 100 UNITS/ML VIAL SQ SCH (21:14)
[2017-05-17] VITALS: BP 109/64; PULSE 80; RESP 16; TEMP 97.6; O2SAT 96
[2017-05-17] MEDS: PROMETHAZINE HCL 25 MG TAB PO PRN ×3 (02:28→15:10)
[2017-05-17] MEDS: traMADol HCL 50 MG TAB PO PRN ×4 (02:29→19:47)
[2017-05-17] MEDS: NS + KCL 20 MEQ INJ 1,000 ML IV SCH ×2 (04:51→15:03)
[2017-05-17] MEDS: BETHANECHOL CHL 25 MG TAB PO SCH ×3 (05:40→21:41)
[2017-05-17] MEDS: SIMETHICONE 125 MG CHEWABLE TAB PO SCH ×3 (05:41→21:41)
[2017-05-17 07:19] LABS: POTASSIUM 4.3 MEQ/L (3.5-5.1)
[2017-05-17 07:22] LABS: BICARBONATE 22.1 MEQ/L (21.0-32.0)
[2017-05-17] MEDS: ONDANSETRON HCL 4 MG/2 ML VIAL IVP PRN ×3 (07:43→21:41)
[2017-05-17 08:00] VITALS: BP 121/62; PULSE 91; RESP 14; TEMP 96; O2SAT 95
[2017-05-17] MEDS: ERYTHROMYCIN EC 250 MG TABEC PO SCH ×3 (08:09→16:58)
[2017-05-17] MEDS: INSULIN ASPART SUPPLEMENTAL SCALE SQ SCH ×4 (08:10→20:55)
[2017-05-17] MEDS: PANTOPRAZOLE SOD 40 MG DELAYED RELEASE TAB PO SCH (08:57)
[2017-05-17] MEDS: LIPASE/PROTEASE/AMYLASE (24,000/76,000/120,000) CAP PO SCH ×3 (08:58→16:59)
[2017-05-17] MEDS: DULoxetine HCl DR 60 MG CAP PO SCH (08:58)
[2017-05-17] MEDS: DICYCLOMINE HCL 20 MG TAB PO SCH ×3 (08:58→16:59)
[2017-05-17] MEDS: CARVEDILOL 6.25 MG TAB PO SCH ×2 (08:58→20:09)
[2017-05-17] MEDS: RIFAXIMIN 550 MG TAB PO SCH ×3 (08:58→16:59)
[2017-05-17] MEDS: PREGABALIN 75 MG CAP PO SCH ×3 (08:58→16:59)
[2017-05-17] MEDS: INSULIN DETEMIR 100 UNITS/ML VIAL SQ SCH ×2 (08:59→20:54)
[2017-05-17] MEDS: SODIUM CHLORIDE 0.9% FLUSH 10 ML FLUSH IV FLUSH SCH ×2 (08:59→20:09)
--- NOTE | 2017-05-17 10:42 | MB ---
cc: ROSALINA LOJA MD DATE OF CONSULTATION: 05/17/2017 TYPE OF CONSULTATION GI consult. REASON FOR CONSULTATION Nausea, vomiting of several days duration. HISTORY OF PRESENT ILLNESS A 51-year-old female patient known to our service from previous admissions and outpatient setting. She is known to have poorly controlled diabetes for several years complicated by gastroparesis and neuropathy. She has also multiple other comorbid conditions. The patient was recently evaluated by our service including upper endoscopy, colonoscopy, CT scan, gastric emptying study. She had recent surgery by Dr. Soares for median arcuate ligament syndrome. At that time she had a tight band of diaphragmatic muscle clare the proximal celiac artery and a lot of abdominal adhesions. Her last gastric emptying study did show significant gastroparesis and she had a Botox injection done by Dr. Krishnamurthy. The patient was recently discharged from [facility] when she had similar problem. She had pain control issues and requiring tapering of her medication and switching to tramadol that appeared to be controlling her symptoms well, along with antiemetic. She was advised to follow small meals and she did very well during hospitalization and discharged after significant improvement. Subsequently, after she went home the patient had symptoms recurrence again with persistent nausea and vomiting and some abdominal discomfort. Her bowel movement was described as occasional constipation and now she is having more diarrhea but no blood in her stool. The patient denies any change in weight or appetite. Denies any fevers, chills or rigors. Denies any other associated symptoms. During this hospitalization the patient had a workup that basically was unremarkable. Her hemoglobin is 16.3, hematocrit 47.4, white count is normal and platelet is normal. Chemistry within normal limits except for blood sugar of persistently above 250 and her last A1c was over 10 in the previous recent admission. PAST MEDICAL HISTORY 1. Poorly controlled diabetes mellitus. 2. Peripheral neuropathy. 3. Depression. 4. Gastroparesis. 5. Hypertension. PAST SURGICAL HISTORY 1. Cholecystectomy. 2. section. 3. She had LEEP procedure. 4. Recent median arcuate ligament by Dr. Soares. ALLERGIES SULFA AND GABAPENTIN. MEDICATION 1. Phenergan. 2. Erythromycin. 3. Rifaximin. 4. Bethanechol. 5. Dicyclomine. 6. Lyrica. 7. Cymbalta. 8. Potassium. 9. Simethicone. 10. Creon. 11. Pantoprazole. 12. Farxiga. PSYCHOSOCIAL HISTORY The patient drinks alcohol very rarely, nonsmoker. She lives with her . REVIEW OF SYSTEMS All fourteen-point element review of system were essentially negative. PHYSICAL EXAMINATION GENERAL: On examination the patient appeared to be comfortable not in distress or in pain at the current time, hemodynamically stable. VITAL SIGNS: Pulse of 80, temperature 97.6, blood pressure 109/64 and pulse oximetry 96. HEAD/NECK: Normocephalic, atraumatic. Pupils equal and reactive to light. Neck is supple. No lymphadenopathy. No thyromegaly. CHEST: Clear to auscultation bilaterally. No crackles or wheezes. HEART: Regular rate and rhythm. No murmurs. ABDOMEN: Soft with minimal tenderness on deep palpation but no palpable masses. No hepatosplenomegaly. EXTREMITIES: Normal pulses. No edema. NEURO: Cranial nerves II-XII grossly intact. No focal motor or sensory deficits. SKIN: No rashes. LABORATORY DATA As mentioned in history of present illness. IMAGING STUDIES Abdominal x-ray essentially negative for evidence of any obstruction or pneumoperitoneum. ASSESSMENT/PLAN A 51-year-old female patient known to our service with the following problems: 1. Persistent nausea and vomiting. 2. Evidence of gastroparesis treated previously with Botox injection. 3. Poorly controlled diabetes with A1c more than 10. 4. Peripheral neuropathy. 5. Extensive endoscopic workup and recent evaluation in the previous recent admission. 6. Prolonged use of narcotics for pain control. RECOMMENDATIONS I would recommend tighter blood sugar control. The patient needs to have an A1c closer to 7. Also would recommend continuing Rifaximin for bacterial overgrowth, Creon for a possible pancreatic insufficiency secondary to diabetes and I would recommend also continuing erythromycin for the time-being. Frequent small meals, hydration and better pain control. Will follow up with you for further recommendations. Thank you for the consultation. Rosalina NO/RENEEL /9:26 AM /10:19 AM
[2017-05-17 12:00] VITALS: BP 114/62; PULSE 83; RESP 14; TEMP 97.3; O2SAT 95
--- NOTE | 2017-05-17 12:29 | HHI.PR ---
Subjective Remarks no further emesis, no diarrhea, tolerated full liquids Objective Vitals Vital Signs Date Time Temp Pulse Resp B/P (MAP) Pulse Ox O2 Delivery O2 Flow Rate FiO2 05/17/17 08:43 18 05/17/17 08:00 96.0 91 14 121/62 (81) 95 05/17/17 00:00 97.6 80 16 109/64 (79) 96 05/16/17 20:00 98.3 90 18 129/59 (82) 95 05/16/17 17:00 96.0 91 16 158/81 (106) 97 05/16/17 13:30 98.0 97 18 187/107 (133) 97 05/16/17 13:07 98 16 147/74 (98) 98 05/17/17 05/17/17 05/18/17 15:00 23:00 07:00 Intake Total 368 ml Balance 368 ml Intake Oral 368 ml Result Diagram: 05/16/17 0909 05/17/17 0657 Imaging Last Impressions Abdomen X-Ray 05/16/17 0000 Signed Impressions: Service Date/Time: Thursday, May 16, 2017 18:02 - CONCLUSION: Radiographically benign abdomen without obstruction or pneumoperitoneum. Kev Lopez MD Objective Remarks Lying in bed no accute distress Lungs CTA Heart RRR Abdomen good bs all 4 quadrants,mild midepigastric tenderness no edema A/P Problem List: (1) Hyperglycemia ICD Codes: R73.9 - Hyperglycemia, unspecified Status: Acute Plan: improved with hydration and sliding scale (2) Nonspecific abdominal pain ICD Codes: R10.9 - Unspecified abdominal pain Status: Chronic Plan: on tramadol ,avoiding other narcotics due to constipation (3) Poorly controlled diabetes mellitus ICD Codes: E11.65 - Type 2 diabetes mellitus with hyperglycemia Status: Chronic Plan: Discussed that improvement of her sugars is essential 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 i Also recommended she go to diabetic education (4) Gastroparesis ICD Codes: K31.84 - Gastroparesis Status: Chronic Plan: discussed diet , improvement of diabetes cont ees for now (5) Peripheral neuropathy ICD Codes: G62.9 - Peripheral neuropathy Status: Chronic Plan: per her neuropathy was diagnosed at [facility] prior to developing her diabetes she has done well with the lyrica (6) Hypertension ICD Codes: I10 - Hypertension Status: Chronic Plan: on coreg, this lowered on pevious admission as her blood pressure dropped presumedly from the dilaudid monitor on current dose (7) Hyperlipidemia ICD Codes: E78.5 - Hyperlipidemia, unspecified Status: Chronic Plan: has been on crestor but was not in med rec as she was not on at discharge , no clear reason why it was stopped will resume Problem Qualifiers (1) Peripheral neuropathy: Qualified Codes: G60.9 - Hereditary and idiopathic neuropathy, unspecified (2) Hypertension: Qualified Codes: I10 - Essential (primary) hypertension Shani Arce MD May 17, 2017 12:29
[2017-05-17 16:00] VITALS: BP 126/60; PULSE 81; RESP 14; TEMP 96; O2SAT 95
[2017-05-17] MEDS: ENOXAPARIN SODIUM 40 MG/0.4 ML SYRINGE SQ SCH (16:59)
[2017-05-17 18:34] LABS: POTASSIUM 4.2 MEQ/L (3.5-5.1)
[2017-05-17 18:37] LABS: BICARBONATE 20.6 MEQ/L (21.0-32.0)
[2017-05-17 20:00] VITALS: BP 129/63; PULSE 77; RESP 16; TEMP 98.1; O2SAT 95
[2017-05-17] MEDS: SODIUM CHLOR 0.9% 1000 ML INJ 1,000 ML IV SCH (20:57)
[2017-05-17] MEDS ORDERED: INSULIN DEGLUDEC 50 UNIT SQ SCH (21:00)
[2017-05-18] VITALS: BP 123/64; PULSE 73; RESP 16; TEMP 96.4; O2SAT 96
[2017-05-18] MEDS: PROMETHAZINE HCL 25 MG TAB PO PRN ×2 (00:16→09:48)
[2017-05-18] MEDS: traMADol HCL 50 MG TAB PO PRN ×2 (00:16→05:51)
[2017-05-18] MEDS: BETHANECHOL CHL 25 MG TAB PO SCH (05:50)
[2017-05-18] MEDS: ONDANSETRON HCL 4 MG/2 ML VIAL IVP PRN (05:51)
[2017-05-18] MEDS: SIMETHICONE 125 MG CHEWABLE TAB PO SCH ×2 (05:51→09:19)
[2017-05-18] MEDS: SODIUM CHLOR 0.9% 1000 ML INJ 1,000 ML IV SCH ×2 (05:51→09:51)
[2017-05-18 06:57] LABS: AUTOMATED NEUTROPHIL # 6.2 TH/MM3 (1.8-7.7); BASOPHIL # 0.2 TH/MM3 (0-0.2); BASOPHIL % 1.6 % (0.0-2.0); EOSINOPHIL # 0.5 TH/MM3 (0-0.4); EOSINOPHIL % 4.5 % (0.0-4.0); LYMPH % 35.6 % (9.0-44.0); LYMPHOCYTE # 4.2 TH/MM3 (1.0-4.8); MEAN CELL VOLUME 86.2 FL (80.0-100.0); MEAN CORPUSCULAR HEMOGLOBIN 28.4 PG (27.0-34.0); MEAN CORPUSCULAR HGB CONC 32.9 % (32.0-36.0); MONO % 7.1 % (0.0-8.0); NEUT % 51.2 % (16.0-70.0); PLATELET COUNT 274 TH/MM3 (150-450); RED BLOOD COUNT 4.76 MIL/MM3 (4.00-5.30); RED CELL DISTRIBUTION WIDTH 12.8 % (11.6-17.2); WHITE BLOOD COUNT 11.9 TH/MM3 (4.0-11.0)
[2017-05-18 07:32] LABS: HEMO FLAGS AUTO DIFF
[2017-05-18 07:46] LABS: BANDS 2 % (0-6); EOSINOPHILS 2 % (0-4); NEUTROPHIL # MANUAL DIFF 5.8 TH/MM3 (1.8-7.7); PLATELET ESTIMATE SMEAR NORMAL (NORMAL); PLATELET MORPHOLOGY NORMAL (NORMAL); POLYS (SEG NEUTROPHILS) 47 % (16-70); WBC DIFF SAMPLE 100
[2017-05-18 07:47] LABS: SCAN/DIFF FINAL DIFF MANUAL
[2017-05-18 08:00] VITALS: BP 138/71; PULSE 83; RESP 16; TEMP 96.3; O2SAT 95
[2017-05-18] MEDS ORDERED: TRESIBA 60 UNIT SQ SCH (09:00)
[2017-05-18] MEDS ORDERED: PATIENT OWN MEDICATION SQ SCH (09:00)
[2017-05-18] MEDS ORDERED: TRESIBA 50 UNIT SQ SCH (09:00)
[2017-05-18] MEDS: ERYTHROMYCIN EC 250 MG TABEC PO SCH (09:20)
[2017-05-18] MEDS: DICYCLOMINE HCL 20 MG TAB PO SCH (09:24)
[2017-05-18] MEDS: CARVEDILOL 6.25 MG TAB PO SCH (09:24)
[2017-05-18] MEDS: RIFAXIMIN 550 MG TAB PO SCH (09:24)
[2017-05-18] MEDS: PREGABALIN 75 MG CAP PO SCH (09:24)
[2017-05-18] MEDS: PANTOPRAZOLE SOD 40 MG DELAYED RELEASE TAB PO SCH (09:24)
[2017-05-18] MEDS: DULoxetine HCl DR 60 MG CAP PO SCH (09:25)
[2017-05-18] MEDS: LIPASE/PROTEASE/AMYLASE (24,000/76,000/120,000) CAP PO SCH (09:26)
[2017-05-18] MEDS: SODIUM CHLORIDE 0.9% FLUSH 10 ML FLUSH IV FLUSH SCH (09:27)
[2017-05-18] MEDS: INSULIN ASPART SUPPLEMENTAL SCALE SQ SCH (09:49)
--- NOTE | 2017-05-18 11:21 | HHI.PR ---
Subjective Remarks drives [place]aves yesterday after lunch, ate roast beef, broccoli and mashed potatoes abdomen sore from dy heaves this am, tolerated breakfast had bm yesterday Objective Vitals Vital Signs Date Time Temp Pulse Resp B/P (MAP) Pulse Ox O2 Delivery O2 Flow Rate FiO2 05/18/17 08:00 96.3 83 16 138/71 (93) 95 05/18/17 00:00 96.4 73 16 123/64 (83) 96 05/17/17 20:00 98.1 77 16 129/63 (85) 95 05/17/17 16:00 96.0 81 14 126/60 (82) 95 05/17/17 13:28 18 05/17/17 12:00 97.3 83 14 114/62 (79) 95 Result Diagram: 05/18/17 0540 05/17/17 1806 Imaging Last Impressions Abdomen X-Ray 05/16/17 0000 Signed Impressions: Service Date/Time: Tuesday, May 16, 2017 18:02 - CONCLUSION: Radiographically benign abdomen without obstruction or pneumoperitoneum. Kev Lopez MD Objective Remarks Lying in bed no accute distress Lungs CTA Heart RRR Abdomen good bs all 4 quadrants,mild midepigastric tenderness, incisions from laparoscopic surgery healing no edema A/P Problem List: (1) Hyperglycemia ICD Codes: R73.9 - Hyperglycemia, unspecified Status: Acute Plan: improved with hydration and sliding scale, sugars up again this am after starting po intake tresiba resumed (2) Nonspecific abdominal pain ICD Codes: R10.9 - Unspecified abdominal pain Status: Chronic Plan: on tramadol ,avoiding other narcotics due to constipation f/u with GI as outpatient, likely due to her gastroparesis this time around (3) Poorly controlled diabetes mellitus ICD Codes: E11.65 - Type 2 diabetes mellitus with hyperglycemia Status: Chronic Plan: Discussed that improvement of her sugars is essential I spoke to Dr Lal to whom she is a faily new patient she is interested in working closely with her for better sugar control and already plans to see her tommorow will discharge her on tresiba and ssi for referral placed for diabetic education (4) Gastroparesis ICD Codes: K31.84 - Gastroparesis Status: Chronic Plan: discussed diet , improvement of diabetes referred to [facility] consulting actuary cont ees for now (5) Peripheral neuropathy ICD Codes: G62.9 - Peripheral neuropathy Status: Chronic Plan: per her neuropathy was diagnosed at [facility] prior to developing her diabetes she has done well with the lyrica (6) Hypertension ICD Codes: I10 - Hypertension Status: Chronic Plan: on coreg, this lowered on pevious admission as her blood pressure dropped presumedly from the dilaudid monitor on current dose (7) Hyperlipidemia ICD Codes: E78.5 - Hyperlipidemia, unspecified Status: Chronic Plan: has been on crestor but was not in med rec as she was not on at discharge (nonformulary) will continue Assessment and Plan Discharge home today Problem Qualifiers (1) Peripheral neuropathy: Qualified Codes: G60.9 - Hereditary and idiopathic neuropathy, unspecified (2) Hypertension: Qualified Codes: I10 - Essential (primary) hypertension Shani Arce MD May 18, 2017 11:21
[2017-05-18] MEDS ORDERED: TRAM50 PO (11:27)
[2017-05-18] MEDS ORDERED: NOVOLOGP2 SQ (11:37)
[2017-05-18 12:00] VITALS: BP 118/65; PULSE 81; RESP 16; TEMP 98.1; O2SAT 97
== END 2017-05-18 13:20 | disposition home or self-care (01) ==
LOC: PHED 08:25 → PHEDA 12:07 → PH3A 13:39
PROVIDERS: ADMIT Legal Medicine; ATTEND Legal Medicine
DX: E11.65 Type 2 diabetes mellitus with hyperglycemia (principal); E11.43 Type 2 diabetes mellitus with diabetic autonomic (poly)neuropathy; K31.84 Gastroparesis; K29.70 Gastritis, unspecified, without bleeding; K21.0 Gastro-esophageal reflux disease with esophagitis; R10.10 Upper abdominal pain, unspecified; F32.9 Major depressive disorder, single episode, unspecified; I10 Essential (primary) hypertension; R11.2 Nausea with vomiting, unspecified
CPT/HCPCS: 74000; 80048; 81001; 82010; 82948; 83690; 85007; 85025; 85027; 96361; 96365; 96366; 96372; 96375; 96376; 99285; C9113; G0378; J1650; J1815; J2405; J2550; J3480; J7030; Q0169; 80053

== ENCOUNTER 2017-08-14 19:27 | Emergency (ER) | payer OTHER ==
[~2017-08-14] VITALS: Ht 162.6 cm; Wt 100.4 kg
[~2017-08-14 19:27] MED LIST changes: -DAPA1TAB PO; -POTA20TA5 PO
[2017-08-14 19:34] VITALS: BP 164/74; PULSE 83; RESP 20; TEMP 97.4; O2SAT 98
[2017-08-14 19:50] VITALS: BP 146/85; PULSE 78; RESP 16; O2SAT 98
--- NOTE | 2017-08-14 20:03 | PD ---
HPI Chief Complaint: GI Complaint Time Seen by Provider: 19:56 Travel History International Travel<30 days: No Contact w/Intl Traveler<30days: No Traveled to known affect area: No History of Present Illness HPI This patient complains of having diarrhea and a pain in her right low back. Duration is 3 days. Severity is moderate. She has no vomiting or fever or abdominal pain. Symptoms severity is mild to moderate. No alleviating factors. No injury. Pain is not pleuritic. No urinary complaints PFSH Past Medical History Arthritis: Yes (in toe) Asthma: No Autoimmune Disease: No Blood Disorders: No Anxiety: No Depression: Yes Heart Rhythm Problems: No Cancer: No Cardiovascular Problems: Yes (HTN) High Cholesterol: Yes Chemotherapy: No Chest Pain: No Congestive Heart Failure: No COPD: No Cerebrovascular Accident: No Diabetes: Yes Patient Takes Glucophage: Yes Diminished Hearing: No Endocrine: Yes Gastrointestinal Disorders: Yes (GASTROPARESIS, GASTRITIS ) GERD: Yes Glaucoma: No Genitourinary: No Headaches: Yes Hepatitis: No Hiatal Hernia: No Hypertension: Yes Immune Disorder: No Implanted Vascular Access Dvce: No Kidney Stones: No Musculoskeletal: Yes Neurologic: Yes (NEUROPATHY IN BILATERAL FEET) Psychiatric: Yes Reproductive: Yes (PRONE TO FREQUESNT YEAST INFECTIONS) Respiratory: No Immunizations Current: No Migraines: No Myocardial Infarction: No Radiation Therapy: No Renal Failure: No Seizures: No Sleep Apnea: Yes Thyroid Disease: No Ulcer: No Tetanus Vaccination: < 5 Years Influenza Vaccination: No ?: Not Menopausal: Yes : 3 Para: 2 Miscarriage: 1 Tubal Ligation: Yes Past Surgical History Abdominal Surgery: Yes (GALLBLADDER, ADHESIONS REMOVED, LAP PROCEDURE FOR CELIAC ARTERY) AICD: No Cardiac Surgery: No Section: Yes (X 2) Cholecystectomy: Yes Ear Surgery: No Eye Surgery: No Genitourinary Surgery: No Gynecologic Surgery: Yes (2 C SECTIONS, TUBAL LIGATION ) Neurologic Surgery: No Oral Surgery: Yes (WISDOM TEETH ) Pacemaker: No Thoracic Surgery: No Other Surgery: Yes (LAPAROSCOPY) Social History Alcohol Use: Yes (on occasion) Tobacco Use: No (quit 1997) Substance Use: No Allergies-Medications (Allergen,Severity, Reaction): Coded Allergies: Sulfa (Sulfonamide Antibiotics) (Unverified Allergy, Severe, BREATHING DIFFICULTIES, 08/14/17) gabapentin (Verified Allergy, Severe, AMNESIA, 08/14/17) Reported Meds & Prescriptions Reported Meds & Active Scripts Active Novolog Inj (Insulin Aspart) 1,000 Unit/10 Ml Vial 1 Unit SQ DIRECTED Sliding Scale 150-199 2 units 200-249 4 " 250-200 7 " 300-349 10 " > 349 12 " Ultram (Tramadol HCl) 50 Mg Tab 50 Mg PO Q4H PRN 3 Days Creon (Amylase/Lipase/Protease) 24,000-76,000-120,000 Units Cap 1 Cap PO TID Phenergan (Promethazine HCl) 25 Mg Tablet 25 Mg PO Q6H PRN Gas Relief Maximum Streng (Simethicone) 125 Mg Chw 125 Mg PO Q8H Urecholine (Bethanechol Chloride) 25 Mg Tab 25 Mg PO Q8HR Pantoprazole (Pantoprazole Sodium) 40 Mg Tab 40 Mg PO DAILY Reported Lisinopril 20 Mg Tab 20 Mg PO BID Metformin (Metformin HCl) 500 Mg Tab 500 Mg PO DAILY With a meal Tresiba Flextouch Pen Inj (Insulin Degludec Inj) 600 unit/3 ML Pen 50 Units SQ DAILY Lyrica (Pregabalin) 75 Mg Cap 75 Mg PO TID Carvedilol 6.25 Mg Tab 6.25 Mg PO BID Cymbalta DR (Duloxetine HCl) 60 Mg Capdr 60 Mg PO DAILY Review of Systems General / Constitutional: No: Fever HENT: No: Headaches Cardiovascular: No: Chest Pain or Discomfort Respiratory: No: Cough Physical Exam Narrative GASTROINTESTINAL: Abdomen soft, non-tender, nondistended. Positive bowel sounds. No hepato-splenomegaly, or palpable masses. No guarding. SKIN: Focused skin assessment reveals no rash or ulcers. Skin is warm and dry. Palpation shows no induration or nodules. Psych: Normal mood and affect. Normal insight and judgment. Back: No midline tenderness. She has readily reproducible tenderness in the right low rib cage underneath the right scapula. There is no bruising or crepitus there. There is no CVA tenderness. Data Data Last Documented VS Vital Signs Date Time Temp Pulse Resp B/P (MAP) Pulse Ox O2 Delivery O2 Flow Rate FiO2 08/14/17 19:40 16 08/14/17 19:34 97.4 83 164/74 (104) 98 Orders Orders Chest, Single Ap (08/14/17 ) MDM Medical Decision Making Medical Screen Exam Complete: Yes Emergency Medical Condition: Yes Medical Record Reviewed: Yes Differential Diagnosis Muscle strain, costochondritis, rib fracture, pneumothorax Narrative Course I have reviewed the patient's electronic medical record. Patient's vital signs are normal She may have a gastroenteritis type picture explain had diarrhea but has soft benign nontender abdomen without abdominal pain I reviewed her chest x-ray which is normal Patient stable for outpatient follow-up. Difficult to explain her right sided back pain but is clearly musculoskeletal and readily reproducible with palpation. Not consistent with kidney stone or PE etc. Diagnosis Primary Impression: Musculoskeletal back pain Additional Impression: Diarrhea Qualified Codes: R19.7 - Diarrhea, unspecified Additional Instructions: The patient was advised to follow up with their physician and return if they worsen. Med/Other Pt SpecificInfo: Other Disposition: 01 DISCHARGE HOME Condition: Stable Salvatore Smith MD Aug 14, 2017 20:03
[2017-08-14] MEDS ORDERED: METF500T PO (20:14)
[2017-08-14] MEDS ORDERED: LISI-515 PO (20:14)
--- NOTE | 2017-08-14 20:23 | RADRPT ---
EXAM DATE/TIME: 08/14/2017 20:14 [facility] COMPARISON: CHEST SINGLE AP, December 23, 2016, 1:48. INDICATIONS : Right posterior chest and back pain. MEDICAL HISTORY : Hypertension. SURGICAL HISTORY : Cholecystectomy. Appendectomy.Tubal ligation ENCOUNTER: Initial ACUITY: 2 days PAIN SCORE: 7/10 LOCATION: Right chest FINDINGS: A single view of the chest demonstrates the lungs to be symmetrically aerated without evidence of mas s, infiltrate or effusion. The cardiomediastinal contours are unremarkable. Osseous structures are intact. CONCLUSION: No acute disease. No significant change has occurred. Yemi Holly MD on August 14, 2017 at 20:21 Board Certified Radiologist. This report was verified electronically.
[2017-08-14 20:40] VITALS: BP 104/75; PULSE 80; RESP 16; O2SAT 98
== END 2017-08-14 20:45 | disposition home or self-care (01) ==
LOC: PHED 19:27
DX: M54.9 Dorsalgia, unspecified (principal); R19.7 Diarrhea, unspecified; F32.9 Major depressive disorder, single episode, unspecified; E78.00 Pure hypercholesterolemia, unspecified; I10 Essential (primary) hypertension; E11.9 Type 2 diabetes mellitus without complications; K21.9 Gastro-esophageal reflux disease without esophagitis; Z79.4 Long term (current) use of insulin
CPT/HCPCS: 71045; 99283

== ENCOUNTER 2017-09-19 20:39 | Emergency (ER) | payer OTHER ==
[~2017-09-19] VITALS: Ht 165.1 cm; Wt 85.0 kg
[~2017-09-19 20:39] MED LIST changes: -DICY20TA10 PO; -ERYT250T13 PO; +LISI-515 PO; +METF500T PO; -XIFA550T4 PO
[2017-09-19 21:21] VITALS: BP 174/71; PULSE 87; RESP 18; TEMP 98; O2SAT 98
[2017-09-19 21:52] VITALS: BP 141/65; PULSE 84; RESP 20; TEMP 98; O2SAT 97
[2017-09-19 21:59] VITALS: RESP 20
[2017-09-19] MEDS ORDERED: SODIUM CHLORIDE 0.9% FLUSH 10 ML FLUSH IV FLUSH PRN ×2 (22:00)
--- NOTE | 2017-09-19 22:19 | RADRPT ---
EXAM DATE/TIME: 09/19/2017 22:06 [facility] COMPARISON: No previous studies available for comparison. INDICATIONS : Shortness of breath and upper abdominal pain. MEDICAL HISTORY : Hypertension. SURGICAL HISTORY : Cholecystectomy. Appendectomy.Tubal ligation ENCOUNTER: Initial ACUITY: 3 days PAIN SCORE: 10/10 LOCATION: Bilateral chest FINDINGS: No consolidation or significant effusion. Minimal basal atelectasis. No pneumothorax. Heart size uppe r limits normal. CONCLUSION: 1. Minimal basilar atelectasis. Germain Mcelroy MD on September 19, 2017 at 22:14 Board Certified Radiologist. This report was verified electronically.
[2017-09-19 22:27] LABS: AUTOMATED NEUTROPHIL # 5.9 TH/MM3 (1.8-7.7); BASOPHIL # 0.1 TH/MM3 (0-0.2); BASOPHIL % 1.2 % (0.0-2.0); EOSINOPHIL # 0.4 TH/MM3 (0-0.4); EOSINOPHIL % 3.4 % (0.0-4.0); HEMATOCRIT 37.4 % (35.0-46.0); HEMOGLOBIN 12.7 GM/DL (11.6-15.3); LYMPH % 34.7 % (9.0-44.0); LYMPHOCYTE # 3.9 TH/MM3 (1.0-4.8); MEAN CORPUSCULAR HEMOGLOBIN 28.8 PG (27.0-34.0); MEAN CORPUSCULAR HGB CONC 33.9 % (32.0-36.0); MEAN PLATELET VOLUME 7.5 FL (7.0-11.0); MONO % 8.7 % (0.0-8.0); PLATELET COUNT 320 TH/MM3 (150-450); RED CELL DISTRIBUTION WIDTH 13.8 % (11.6-17.2); WHITE BLOOD COUNT 11.4 TH/MM3 (4.0-11.0)
[2017-09-19 22:40] LABS: ALBUMIN 3.4 GM/DL (3.4-5.0); AST (GOT) 4 U/L (15-37); BICARBONATE 27.1 MEQ/L (21.0-32.0); BLOOD UREA NITROGEN 8 MG/DL (7-18); CALCIUM 8.9 MG/DL (8.5-10.1); CHLORIDE 106 MEQ/L (98-107); CREATININE 0.74 MG/DL (0.50-1.00); GLOMERULAR FILTRATION RATE 83 ML/MIN (>89); GLUCOSE,RANDOM 190 MG/DL (74-106); SODIUM (NA) 141 MEQ/L (136-145)
[2017-09-19 22:41] LABS: ALT (GPT) 19 U/L (10-53)
[2017-09-19 22:43] LABS: ALKALINE PHOSPHATASE 76 U/L (45-117); TOTAL BILIRUBIN ADULT 0.6 MG/DL (0.2-1.0); TOTAL PROTEIN 7.2 GM/DL (6.4-8.2)
[2017-09-19] MEDS ORDERED: METOCLOPRAMIDE HCL 10 MG/2 ML VIAL IV PUSH ONE (23:30)
[2017-09-19] MEDS ORDERED: ONDANSETRON HCL 4 MG/2 ML VIAL IV PUSH ONE (23:30)
[2017-09-19] MEDS ORDERED: MORPHINE SULFATE 4 MG/ML INJ IV PUSH ONE (23:30)
--- NOTE | 2017-09-20 00:59 | PD ---
HPI Chief Complaint: Abdominal Pain Time Seen by Provider: 21:45 Travel History International Travel<30 days: No Contact w/Intl Traveler<30days: No Traveled to known affect area: No History of Present Illness HPI Patient is a 51-year-old female presents emergency department for evaluation of nausea vomiting and some generalized abdominal cramping. Patient states she has a history of gastroparesis and feels very similar. She denies any chest pain denies any hematemesis. She states that her abdomen has been somewhat more distended. No diarrhea no constipation no fevers. Symptoms for 2 days gradually worsening. Context and associated signs and symptoms as above. PFSH Past Medical History Arthritis: Yes (in toe) Asthma: No Autoimmune Disease: No Blood Disorders: No Anxiety: No Depression: Yes Heart Rhythm Problems: No Cancer: No Cardiovascular Problems: Yes (HTN) High Cholesterol: Yes Chemotherapy: No Chest Pain: No Congestive Heart Failure: No COPD: No Cerebrovascular Accident: No Diabetes: Yes Patient Takes Glucophage: Yes Diminished Hearing: No Endocrine: Yes Gastrointestinal Disorders: Yes (GASTROPARESIS, GASTRITIS ) GERD: Yes Glaucoma: No Genitourinary: No Headaches: Yes Hepatitis: No Hiatal Hernia: No Hypertension: Yes Immune Disorder: No Implanted Vascular Access Dvce: No Kidney Stones: No Musculoskeletal: Yes Neurologic: Yes (NEUROPATHY IN BILATERAL FEET) Psychiatric: Yes Reproductive: Yes (PRONE TO FREQUESNT YEAST INFECTIONS) Respiratory: No Immunizations Current: No Migraines: No Myocardial Infarction: No Radiation Therapy: No Renal Failure: No Seizures: No Sleep Apnea: Yes Thyroid Disease: No Ulcer: No Tetanus Vaccination: < 5 Years Influenza Vaccination: Yes ?: Unknown Menopausal: Yes : 3 Para: 2 Miscarriage: 1 Tubal Ligation: Yes Past Surgical History Abdominal Surgery: Yes (GALLBLADDER, ADHESIONS REMOVED, LAP PROCEDURE FOR CELIAC ARTERY) AICD: No Cardiac Surgery: No Section: Yes (X 2) Cholecystectomy: Yes Ear Surgery: No Eye Surgery: No Genitourinary Surgery: No Gynecologic Surgery: Yes (2 C SECTIONS, TUBAL LIGATION ) Neurologic Surgery: No Oral Surgery: Yes (WISDOM TEETH ) Pacemaker: No Thoracic Surgery: No Other Surgery: Yes (LAPAROSCOPY) Social History Alcohol Use: Yes (on occasion) Tobacco Use: No (quit 1997) Substance Use: No Allergies-Medications (Allergen,Severity, Reaction): Coded Allergies: Sulfa (Sulfonamide Antibiotics) (Unverified Allergy, Severe, BREATHING DIFFICULTIES, 09/19/17) gabapentin (Verified Allergy, Severe, AMNESIA, 09/19/17) Reported Meds & Prescriptions Reported Meds & Active Scripts Active Macrobid (Nitrofurantoin Monoh/Nitrofur Macro) 100 Mg Cap 100 Mg PO BID 7 Days Novolog Inj (Insulin Aspart) 1,000 Unit/10 Ml Vial 1 Unit SQ DIRECTED Sliding Scale 150-199 2 units 200-249 4 " 250-200 7 " 300-349 10 " > 349 12 " Ultram (Tramadol HCl) 50 Mg Tab 50 Mg PO Q4H PRN 3 Days Creon (Amylase/Lipase/Protease) 24,000-76,000-120,000 Units Cap 1 Cap PO TID Phenergan (Promethazine HCl) 25 Mg Tablet 25 Mg PO Q6H PRN Gas Relief Maximum Streng (Simethicone) 125 Mg Chw 125 Mg PO Q8H Urecholine (Bethanechol Chloride) 25 Mg Tab 25 Mg PO Q8HR Pantoprazole (Pantoprazole Sodium) 40 Mg Tab 40 Mg PO DAILY Reported Lisinopril 20 Mg Tab 20 Mg PO BID Metformin (Metformin HCl) 500 Mg Tab 500 Mg PO DAILY With a meal Tresiba Flextouch Pen Inj (Insulin Degludec Inj) 600 unit/3 ML Pen 50 Units SQ DAILY Lyrica (Pregabalin) 75 Mg Cap 75 Mg PO TID Carvedilol 6.25 Mg Tab 6.25 Mg PO BID Cymbalta DR (Duloxetine HCl) 60 Mg Capdr 60 Mg PO DAILY Review of Systems Except as stated in HPI: all other systems reviewed are Neg Physical Exam Narrative GENERAL: Well-developed, well-nourished, appears mildly uncomfortable. SKIN: Warm and dry. HEAD: Atraumatic. Normocephalic. EYES: Pupils equal and round. No scleral icterus. No injection or drainage. ENT: No nasal bleeding or discharge. Mucous membranes pink and moist. NECK: Trachea midline. No JVD. CARDIOVASCULAR: Regular rate and rhythm. RESPIRATORY: No accessory muscle use. Clear to auscultation. Breath sounds equal bilaterally. GASTROINTESTINAL: Abdomen soft, non-tender, nondistended. Hepatic and splenic margins not palpable. MUSCULOSKELETAL: Extremities without clubbing, cyanosis, or edema. No obvious deformities. NEUROLOGICAL: Awake and alert. No obvious cranial nerve deficits. Motor grossly within normal limits. Five out of 5 muscle strength in the arms and legs. Normal speech. PSYCHIATRIC: Appropriate mood and affect; insight and judgment normal. Data Data Last Documented VS Orders Orders Iv Access Insert/Monitor (09/19/17 21:54) Ecg Monitoring (09/19/17 21:54) Oximetry (09/19/17 21:54) Sodium Chloride 0.9% Flush (Ns Flush) (09/19/17 22:00) Complete Blood Count With Diff (09/19/17 21:59) Comprehensive Metabolic Panel (09/19/17 21:59) Lipase (09/19/17 21:59) Urinalysis - C+S If Indicated (09/19/17 21:59) Iv Access Insert/Monitor (09/19/17 21:59) Sodium Chloride 0.9% Flush (Ns Flush) (09/19/17 22:00) Electrocardiogram (09/19/17 21:59) Chest, Single Ap (09/19/17 21:59) Ed Urine Pregnancytest Poc (09/19/17 21:59) Metoclopramide Inj (Reglan Inj) (09/19/17 23:30) Ondansetron Inj (Zofran Inj) (09/19/17 23:30) Morphine Inj (Morphine Inj) (09/19/17 23:30) Ct Abd/Pel W Iv Contrast(Rout) (09/20/17 ) Iohexol 350 Inj (Omnipaque 350 Inj) (09/20/17 01:34) Cath For Specimen (09/20/17 01:59) Ed Discharge Order (09/20/17 02:35) Urine Culture (09/20/17 02:45) Labs Laboratory Tests Test 09/19/17 22:05 09/20/17 02:45 White Blood Count 11.4 TH/MM3 Red Blood Count 4.40 MIL/MM3 Hemoglobin 12.7 GM/DL Hematocrit 37.4 % Mean Corpuscular Volume 85.0 FL Mean Corpuscular Hemoglobin 28.8 PG Mean Corpuscular Hemoglobin Concent 33.9 % Red Cell Distribution Width 13.8 % Platelet Count 320 TH/MM3 Mean Platelet Volume 7.5 FL Neutrophils (%) (Auto) 52.0 % Lymphocytes (%) (Auto) 34.7 % Monocytes (%) (Auto) 8.7 % Eosinophils (%) (Auto) 3.4 % Basophils (%) (Auto) 1.2 % Neutrophils # (Auto) 5.9 TH/MM3 Lymphocytes # (Auto) 3.9 TH/MM3 Monocytes # (Auto) 1.0 TH/MM3 Eosinophils # (Auto) 0.4 TH/MM3 Basophils # (Auto) 0.1 TH/MM3 CBC Comment DIFF FINAL Differential Comment Blood Urea Nitrogen 8 MG/DL Creatinine 0.74 MG/DL Random Glucose 190 MG/DL Total Protein 7.2 GM/DL Albumin 3.4 GM/DL Calcium Level 8.9 MG/DL Alkaline Phosphatase 76 U/L Aspartate Amino Transf (AST/SGOT) 4 U/L Alanine Aminotransferase (ALT/SGPT) 19 U/L Total Bilirubin 0.6 MG/DL Sodium Level 141 MEQ/L Potassium Level 3.9 MEQ/L Chloride Level 106 MEQ/L Carbon Dioxide Level 27.1 MEQ/L Anion Gap 8 MEQ/L Estimat Glomerular Filtration Rate 83 ML/MIN Lipase 224 U/L Urine Color YELLOW Urine Turbidity CLEAR Urine pH 5.5 Urine Specific [place] 1.050 Urine Protein NEG mg/dL Urine Glucose (UA) TRACE mg/dL Urine Ketones NEG mg/dL Urine Occult Blood NEG Urine Nitrite POS Urine Bilirubin NEG Urine Urobilinogen LESS THAN 2.0 MG/DL Urine Leukocyte Esterase TRACE Urine RBC 1 /hpf Urine WBC 5 /hpf Urine Squamous Epithelial Cells 1 /hpf Urine Bacteria RARE /hpf Urine Mucus FEW /lpf Microscopic Urinalysis Comment CULTURE INDICATED MDM Medical Decision Making Medical Screen Exam Complete: Yes Emergency Medical Condition: Yes Differential Diagnosis Acute abdomen unlikely, urinary tract infection, dehydration, obstruction, gastroparesis flare. Narrative Course Last 24 hours Impressions Abdomen/Pelvis CT 09/20/17 0000 Signed Impressions: Service Date/Time: Wednesday, September 20, 2017 01:30 - CONCLUSION: 1. Patient is status post cholecystectomy. Otherwise, no acute intraperitoneal or pelvic process to explain current clinical symptoms. 2. Focal ground glass density in the left perifissural distribution of the lower lobe. Findings are nonspecific but could represent a mild postinflammatory process/bronchiolitis. No confluent infiltrate. Kev Lopez MD Chest X-Ray 09/19/17 2159 Signed Impressions: Service Date/Time: Tuesday, September 19, 2017 22:06 - CONCLUSION: 1. Minimal basilar atelectasis. Germain Mcelroy MD Patient was room to the emergency department, given Reglan on , on revisit she is sleeping soundly in no obvious distress, she is tolerating p.o. liquids well in the emergency department. Discussed with her need follow-up with a primary care physician and return to ED criteria. Discussed with her the incidental findings on her CAT scan. She stable for discharge Diagnosis Primary Impression: Nonspecific abdominal pain Med/Other Pt SpecificInfo: Prescription(s) given Scripts Nitrofurantoin Monohydrate Macrocrystals (Macrobid) 100 Mg Cap 100 MG PO BID for Infection for 7 Days, #14 CAP 0 Refills Prov: Jj Segovia MD 09/20/17 Disposition: 01 DISCHARGE HOME Condition: Stable Jj Segovia MD Sep 20, 2017 00:59
[2017-09-20 01:15] VITALS: RESP 20
[2017-09-20] MEDS ORDERED: IOHEXOL 350 MG/ML 10 ML VIAL (for RAD DIAG) IVCONTRAST ONE (01:34)
--- NOTE | 2017-09-20 01:53 | RADRPT ---
EXAM DATE/TIME: 09/20/2017 01:30 [facility] COMPARISON: CT ABDOMEN & PELVIS W CONTRAST, May 04, 2017, 17:48. INDICATIONS : Abdominal pain. IV CONTRAST: 96 cc Omnipaque 350 (iohexol) IV ORAL CONTRAST: No oral contrast ingested. RADIATION DOSE: 16.80 CTDIvol (mGy) MEDICAL HISTORY : Hypertension. Diabetes mellitus type 2. Inflammatory bowel disease. SURGICAL HISTORY : Cholecystectomy. Tubal ligation. section. ENCOUNTER: Initial ACUITY: 1 day PAIN SCALE: 7/10 LOCATION: abdomen TECHNIQUE: Volumetric scanning of the abdomen and pelvis was performed. Using automated exposure control and ad justment of the mA and/or kV according to patient size, radiation dose was kept as low as reasonably achievable to obtain optimal diagnostic quality images. DICOM format image data is available electro nically for review and comparison. FINDINGS: LOWER LUNGS: Perifissural groundglass density in the left lower lobe may represent a mild inflammatory process/bro nchiolitis. No confluent infiltrate. LIVER: Homogeneous density without lesion. There is no dilation of the biliary tree. Patient is status post cholecystectomy.. SPLEEN: Normal size without lesion. PANCREAS: Within normal limits. KIDNEYS: Normal in size and shape. There is no mass, stone or hydronephrosis. Benign-appearing 1.6 cm cyst la terally in the midpole the left kidney ADRENAL GLANDS: Within normal limits. VASCULAR: There is no aortic aneurysm. BOWEL/MESENTERY: The stomach, small bowel, and colon demonstrate no acute abnormality. There is no free intraperitone al air or fluid. ABDOMINAL WALL: Within normal limits. RETROPERITONEUM: There is no lymphadenopathy. BLADDER: No wall thickening or mass. REPRODUCTIVE: Within normal limits. INGUINAL: There is no lymphadenopathy or hernia. MUSCULOSKELETAL: Within normal limits for patient age. CONCLUSION: 1. Patient is status post cholecystectomy. Otherwise, no acute intraperitoneal or pelvic process to e xplain current clinical symptoms. 2. Focal ground glass density in the left perifissural distribution of the lower lobe. Findings are n onspecific but could represent a mild postinflammatory process/bronchiolitis. No confluent infiltrate . Kev Lopez MD on September 20, 2017 at 1:48 Board Certified Radiologist. This report was verified electronically.
[2017-09-20 03:07] LABS: BACTERIA, URINE RARE /hpf; BILIRUBIN, URINE NEG (NEG); BLOOD, URINE NEG (NEG); GLUCOSE,URINE TRACE mg/dL (NEG); KETONE, URINE NEG (NEG); MUCUS URINE FEW /lpf (OCC); NITRITE,URINE POS (NEG); PH, URINE 5.5 (5.0-8.5); SQUAMOUS EPITHELIAL CELL URINE 1 /hpf (0-5); URINE COLOR YELLOW (YELLW/STRAW); URINE LEUKOCYTE ESTERASE TRACE (NEG)
[2017-09-20] MEDS ORDERED: MACR100C2 PO (03:22)
--- NOTE | 2017-09-20 12:37 | EKG ---
Date Performed: 09/19/2017 Time Performed: 23:22:42 PTAGE: 51 years EKG: Borderline left axis deviation Low voltage in precordial leads Poor R wave progression acro ss the precordial leads, which may be of normal variant Since previous tracing, no significant change noted BORDERLINE ECG PREVIOUS TRACING : 03/27/2017 11.23 DOCTOR: Angel Luis Dillard Interpretating Date/Time 09/20/2017 12:36:00
== END 2017-09-20 03:44 | disposition home or self-care (01) ==
LOC: NEPC 20:39
DX: R10.84 Generalized abdominal pain (principal); R11.2 Nausea with vomiting, unspecified; J98.11 Atelectasis; B96.1 Klebsiella pneumoniae [K. pneumoniae] as the cause of diseases classified elsewhere; I10 Essential (primary) hypertension; E11.9 Type 2 diabetes mellitus without complications; E78.00 Pure hypercholesterolemia, unspecified; K21.9 Gastro-esophageal reflux disease without esophagitis; Z87.19 Personal history of other diseases of the digestive system
CPT/HCPCS: 71045; 74177; 80053; 81001; 83690; 84703; 85025; 86403; 87077; 87086; 87186; 93005; 96374; 96375; 99285; J2270; J2405; J2765; Q9967

== ENCOUNTER 2017-10-17 10:36 | Emergency (ER) | payer OTHER ==
[~2017-10-17] VITALS: Ht 162.6 cm; Wt 105.8 kg
[~2017-10-17 10:36] MED LIST changes: +MACR100C2 PO
[2017-10-17 11:19] VITALS: BP 117/62; PULSE 85; RESP 20; TEMP 98.8; O2SAT 96
[2017-10-17] MEDS ORDERED: CARV12.52 PO (11:54)
[2017-10-17] MEDS ORDERED: CREON24 PO (11:54)
[2017-10-17] MEDS ORDERED: SODIUM CHLOR 0.9% 1000 ML INJ 1,000 ML IV SCH (12:09)
[2017-10-17] MEDS ORDERED: SODIUM CHLORIDE 0.9% FLUSH 10 ML FLUSH IV FLUSH PRN (12:15)
[2017-10-17] MEDS ORDERED: PROMETHAZINE INJ 25 MG/ML VIAL IM ONE (12:15)
--- NOTE | 2017-10-17 12:16 | PD ---
HPI Chief Complaint: GI Complaint Time Seen by Provider: 12:00 Travel History International Travel<30 days: No Contact w/Intl Traveler<30days: No Traveled to known affect area: No History of Present Illness HPI The patient was seen and examined in the presence of the nurse. This patient complains of several things. She has chronic abdominal pain from gastroparesis. She complains of pain in her bilateral lower rib cage. No injury or shortness of breath. She has some nausea. That is chronic. She is on medication for gastroparesis. She had 2 episodes of diarrhea. No fever. She complains of a diffuse whole body tingling sensation duration of symptoms one day. No alleviating factors exacerbating factors. She denies anxiety or panic. Symptom severity is moderate PFSH Past Medical History Arthritis: Yes (in toe) Asthma: No Autoimmune Disease: No Blood Disorders: No Anxiety: No Depression: Yes Heart Rhythm Problems: No Cancer: No Cardiovascular Problems: Yes (HTN) High Cholesterol: Yes Chemotherapy: No Chest Pain: No Congestive Heart Failure: No COPD: No Cerebrovascular Accident: No Diabetes: Yes Patient Takes Glucophage: No (insulin only) Diminished Hearing: No Endocrine: Yes Gastrointestinal Disorders: Yes (GASTROPARESIS, GASTRITIS ) GERD: Yes Glaucoma: No Genitourinary: No Headaches: Yes Hepatitis: No Hiatal Hernia: No Hypertension: Yes Immune Disorder: No Implanted Vascular Access Dvce: No Kidney Stones: No Musculoskeletal: Yes Neurologic: Yes (NEUROPATHY IN BILATERAL FEET) Psychiatric: Yes Reproductive: Yes (PRONE TO FREQUESNT YEAST INFECTIONS) Respiratory: No Immunizations Current: No Migraines: No Myocardial Infarction: No Radiation Therapy: No Renal Failure: No Seizures: No Sleep Apnea: Yes Thyroid Disease: No Ulcer: No Tetanus Vaccination: < 5 Years Influenza Vaccination: Yes ?: Not Menopausal: Yes : 3 Para: 2 Miscarriage: 1 Tubal Ligation: Yes Past Surgical History Abdominal Surgery: Yes (GALLBLADDER, ADHESIONS REMOVED, LAP PROCEDURE FOR CELIAC ARTERY) AICD: No Cardiac Surgery: No Section: Yes (X 2) Cholecystectomy: Yes Ear Surgery: No Eye Surgery: No Genitourinary Surgery: No Gynecologic Surgery: Yes (2 C SECTIONS, TUBAL LIGATION ) Neurologic Surgery: No Oral Surgery: Yes (WISDOM TEETH ) Pacemaker: No Thoracic Surgery: No Other Surgery: Yes (LAPAROSCOPY, celiac artery decompressed) Social History Alcohol Use: Yes (on occasion) Tobacco Use: No (quit 1997) Substance Use: No Allergies-Medications (Allergen,Severity, Reaction): Coded Allergies: Sulfa (Sulfonamide Antibiotics) (Unverified Allergy, Severe, BREATHING DIFFICULTIES, 10/17/17) gabapentin (Verified Allergy, Severe, AMNESIA, 10/17/17) Reported Meds & Prescriptions Reported Meds & Active Scripts Active Ultram (Tramadol HCl) 50 Mg Tab 50 Mg PO Q4H PRN 3 Days Phenergan (Promethazine HCl) 25 Mg Tablet 25 Mg PO Q6H PRN Gas Relief Maximum Streng (Simethicone) 125 Mg Chw 125 Mg PO Q8H Pantoprazole (Pantoprazole Sodium) 40 Mg Tab 40 Mg PO DAILY Reported Creon (Amylase/Lipase/Protease) 24,000-76,000-120,000 Units Cap 2 Cap PO QID Carvedilol 12.5 Mg Tab 12.5 Mg PO BID Lisinopril 20 Mg Tab 20 Mg PO BID Lyrica (Pregabalin) 75 Mg Cap 75 Mg PO TID Cymbalta DR (Duloxetine HCl) 60 Mg Capdr 60 Mg PO DAILY Review of Systems General / Constitutional: No: Fever Eyes: No: Visual changes HENT: No: Headaches Cardiovascular: No: Chest Pain or Discomfort Respiratory: No: Shortness of Breath Gastrointestinal: Positive: Nausea, Diarrhea, Abdominal Pain Genitourinary: No: Dysuria Musculoskeletal: Positive: Pain Skin: No Rash Neurologic: Positive: Paresthesia, No: Weakness Psychiatric: No: Depression Endocrine: No: Polydipsia Hematologic/Lymphatic: No: Easy Bruising Physical Exam Narrative GENERAL: Well-nourished, well-developed patient in no apparent distress. SKIN: Focused skin assessment reveals no rash and nodules. Skin is Warm and dry. HEAD: Atraumatic. Normocephalic. EYES: Pupils equal and round. No scleral icterus. No injection or drainage. ENT: No nasal bleeding or discharge. Mucous membranes pink and moist. NECK: Trachea midline. No JVD. CARDIOVASCULAR: Regular rate and rhythm. No murmur appreciated. RESPIRATORY: No accessory muscle use. Clear to auscultation. Breath sounds equal bilaterally. GASTROINTESTINAL: Abdomen soft, non-tender, nondistended. Hepatic and splenic margins not palpable. MUSCULOSKELETAL: No obvious deformities. No clubbing. No cyanosis. No edema. Is reproducible bilateral lower rib cage tenderness. No crepitus or bruising. NEUROLOGICAL: Awake and alert. No obvious cranial nerve deficits. Motor grossly within normal limits. Normal speech. PSYCHIATRIC: Appropriate mood and affect; insight and judgment normal. Data Data Last Documented VS Vital Signs Date Time Temp Pulse Resp B/P (MAP) Pulse Ox O2 Delivery O2 Flow Rate FiO2 10/17/17 11:19 98.8 85 20 117/62 (80) 96 Orders Orders Complete Blood Count With Diff (10/17/17 12:09) Comprehensive Metabolic Panel (10/17/17 12:09) Lipase (10/17/17 12:09) Iv Access Insert/Monitor (10/17/17 12:09) NPO (10/17/17 12:09) Sodium Chlor 0.9% 1000 Ml Inj (Ns 1000 M (10/17/17 12:09) Sodium Chloride 0.9% Flush (Ns Flush) (10/17/17 12:15) Promethazine Inj (Phenergan Inj) (10/17/17 12:15) Labs Laboratory Tests Test 10/17/17 12:50 White Blood Count 10.6 TH/MM3 Red Blood Count 4.98 MIL/MM3 Hemoglobin 13.8 GM/DL Hematocrit 41.8 % Mean Corpuscular Volume 83.9 FL Mean Corpuscular Hemoglobin 27.7 PG Mean Corpuscular Hemoglobin Concent 33.0 % Red Cell Distribution Width 12.8 % Platelet Count 325 TH/MM3 Mean Platelet Volume 7.4 FL Neutrophils (%) (Auto) 63.9 % Lymphocytes (%) (Auto) 26.4 % Monocytes (%) (Auto) 6.1 % Eosinophils (%) (Auto) 2.8 % Basophils (%) (Auto) 0.8 % Neutrophils # (Auto) 6.8 TH/MM3 Lymphocytes # (Auto) 2.8 TH/MM3 Monocytes # (Auto) 0.6 TH/MM3 Eosinophils # (Auto) 0.3 TH/MM3 Basophils # (Auto) 0.1 TH/MM3 CBC Comment DIFF FINAL Differential Comment Blood Urea Nitrogen 9 MG/DL Creatinine 0.65 MG/DL Random Glucose 203 MG/DL Total Protein 7.6 GM/DL Albumin 3.3 GM/DL Calcium Level 8.9 MG/DL Alkaline Phosphatase 91 U/L Aspartate Amino Transf (AST/SGOT) 13 U/L Alanine Aminotransferase (ALT/SGPT) 24 U/L Total Bilirubin 0.7 MG/DL Sodium Level 138 MEQ/L Potassium Level 4.3 MEQ/L Chloride Level 105 MEQ/L Carbon Dioxide Level 25.9 MEQ/L Anion Gap 7 MEQ/L Estimat Glomerular Filtration Rate 96 ML/MIN Lipase 170 U/L MDM Medical Decision Making Medical Screen Exam Complete: Yes Emergency Medical Condition: Yes Medical Record Reviewed: Yes Differential Diagnosis Costochondritis, rib pain, gastroparesis, gastroenteritis Narrative Course I have reviewed the patient's electronic medical record. IV placed and 1 L normal saline IV given IM Phenergan given at her request Labs sent CBC and LFTs and metabolic studies are normal except for mild hyperglycemia Patient has medications for nausea and gastroparesis at home The patient was advised to follow up with their physician and return if they worsen. Neurologically normal Diagnosis Primary Impression: Gastroparesis Additional Impressions: Nonspecific abdominal pain Rib pain Paresthesias Additional Instructions: The patient was advised to follow up with their physician and return if they worsen. Med/Other Pt SpecificInfo: Other Disposition: 01 DISCHARGE HOME Condition: Stable Salvatore Smith MD Oct 17, 2017 12:16
[2017-10-17 12:53] LABS: AUTOMATED NEUTROPHIL # 6.8 TH/MM3 (1.8-7.7); BASOPHIL # 0.1 TH/MM3 (0-0.2); BASOPHIL % 0.8 % (0.0-2.0); EOSINOPHIL # 0.3 TH/MM3 (0-0.4); EOSINOPHIL % 2.8 % (0.0-4.0); HEMATOCRIT 41.8 % (35.0-46.0); HEMOGLOBIN 13.8 GM/DL (11.6-15.3); LYMPH % 26.4 % (9.0-44.0); LYMPHOCYTE # 2.8 TH/MM3 (1.0-4.8); MEAN CELL VOLUME 83.9 FL (80.0-100.0); MEAN CORPUSCULAR HEMOGLOBIN 27.7 PG (27.0-34.0); MEAN PLATELET VOLUME 7.4 FL (7.0-11.0); MONO % 6.1 % (0.0-8.0); MONOCYTE # 0.6 TH/MM3 (0-0.9); NEUT % 63.9 % (16.0-70.0); PLATELET COUNT 325 TH/MM3 (150-450); RED BLOOD COUNT 4.98 MIL/MM3 (4.00-5.30); RED CELL DISTRIBUTION WIDTH 12.8 % (11.6-17.2); WHITE BLOOD COUNT 10.6 TH/MM3 (4.0-11.0)
[2017-10-17 13:07] LABS: CHLORIDE 105 MEQ/L (98-107); SODIUM (NA) 138 MEQ/L (136-145)
[2017-10-17 13:10] LABS: CALCIUM 8.9 MG/DL (8.5-10.1)
[2017-10-17 13:11] LABS: ALBUMIN 3.3 GM/DL (3.4-5.0); BICARBONATE 25.9 MEQ/L (21.0-32.0); BLOOD UREA NITROGEN 9 MG/DL (7-18); GLUCOSE,RANDOM 203 MG/DL (74-106)
[2017-10-17 13:14] LABS: ALT (GPT) 24 U/L (10-53); AST (GOT) 13 U/L (15-37); CREATININE 0.65 MG/DL (0.50-1.00); GLOMERULAR FILTRATION RATE 96 ML/MIN (>89)
[2017-10-17 13:15] LABS: TOTAL BILIRUBIN ADULT 0.7 MG/DL (0.2-1.0); TOTAL PROTEIN 7.6 GM/DL (6.4-8.2)
[2017-10-17 13:16] LABS: ALKALINE PHOSPHATASE 91 U/L (45-117)
[2017-10-17 14:26] VITALS: BP 131/76
== END 2017-10-17 14:30 | disposition home or self-care (01) ==
LOC: PHED 10:36
DX: K31.84 Gastroparesis (principal); R07.81 Pleurodynia; R20.2 Paresthesia of skin; F32.9 Major depressive disorder, single episode, unspecified; I10 Essential (primary) hypertension; E78.00 Pure hypercholesterolemia, unspecified; E11.43 Type 2 diabetes mellitus with diabetic autonomic (poly)neuropathy; K21.9 Gastro-esophageal reflux disease without esophagitis; Z88.2 Allergy status to sulfonamides; Z79.4 Long term (current) use of insulin
CPT/HCPCS: 80053; 83690; 85025; 96360; 96372; 99284; J2550; J7030

== ENCOUNTER 2017-12-24 19:38 | Emergency (ER) | payer OTHER ==
[~2017-12-24] VITALS: Ht 162.6 cm; Wt 110.0 kg
[~2017-12-24 19:38] MED LIST changes: -BETH25 PO; +CARV12.52 PO; -CARV6.252 PO; -INSU1INJ13 SQ; -MACR100C2 PO; -METF500T PO; -NOVOLOGP2 SQ
[2017-12-24 20:09] VITALS: BP 149/64; PULSE 96; RESP 18; TEMP 97.7; O2SAT 97
[2017-12-24] MEDS ORDERED: HUMUINJ5 SQ (21:24)
[2017-12-24] MEDS ORDERED: BUME1TAB PO (21:25)
[2017-12-24] MEDS ORDERED: HYOS1TAB9 PO (21:25)
[2017-12-24 21:26] VITALS: BP 139/67; PULSE 90; RESP 16; O2SAT 99
[2017-12-24] MEDS ORDERED: ERYT250C PO (21:26)
[2017-12-24] MEDS ORDERED: LIDOCAINE VISCOUS 2% SOLN 15 ML UDC PO ONE (22:00)
[2017-12-24] MEDS ORDERED: SODIUM CHLORIDE 0.9% FLUSH 10 ML FLUSH IV FLUSH PRN (22:00)
[2017-12-24] MEDS ORDERED: ALUMINUM/MAGNESIUM/SIMETH 30 ML CUP PO ONE (22:00)
[2017-12-24] MEDS ORDERED: ONDANSETRON ODT 4 MG TAB PO ONE (22:00)
[2017-12-24] MEDS ORDERED: FAMOTIDINE 20 MG/2 ML VIAL IV PUSH SCH (22:00)
--- NOTE | 2017-12-24 22:24 | RADRPT ---
EXAM DATE: 12/24/2017 10:18 PM EDT AGE/SEX: 52 years / Female INDICATIONS: Abdominal pain CLINICAL DATA: This is the patient's initial encounter. Patient reports that signs and symptoms have been present for 1 day and indicates a pain score of 5/10. MEDICAL/SURGICAL HISTORY: None. None. COMPARISON: Abdominal x-ray 05/01/2017. FINDINGS: Supine and upright views of the abdomen were performed. The abdominal bowel gas pattern is normal. No air-fluid levels are seen. No abnormal masses, calcifications, or organomegaly is seen. The visualiz ed lower lungs are clear. No evidence of free intraperitoneal gas. The osseous structures are unremar kable. CONCLUSION: Normal bowel gas pattern. Electronically signed by: Hung Crane MD 12/24/2017 10:22 PM EDT
--- NOTE | 2017-12-24 22:25 | PD ---
HPI Chief Complaint: Abdominal Pain Time Seen by Provider: 21:09 Travel History International Travel<30 days: No Contact w/Intl Traveler<30days: No Traveled to known affect area: No History of Present Illness HPI A 51-year-old female patient WHO THINKS HER GASTROPARESIS IS ACTING UP AGAIN , SHE TOOK PHENERGAN WITHOUT RELIEF OF HER SX. , PAIN IS A BLOATING DISTENDED FEELING AND EPIGASTRIC TO ruq AREA PAIN , She HAS long HX of gastroparesis and neuropathy. She has also multiple other comorbid conditions. The patient was recently evaluated by [facility] including upper endoscopy, colonoscopy, CT scan, gastric emptyin study. 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 she had a tight band of diaphragmatic muscle clare the proximal celiac artery and a lot of abdominal adhesions. Her last gastric Emptying study did show significant gastroparesis and she had a Botox injection. pt denies vomit and she has had loose non-formed stools. She saw Dr Luciano recently [facility] Past Medical History Arthritis: Yes (in toe) Asthma: No Autoimmune Disease: No Blood Disorders: No Anxiety: No Depression: Yes Heart Rhythm Problems: No Cancer: No Cardiovascular Problems: Yes (HTN ) High Cholesterol: Yes Chemotherapy: No Chest Pain: No Congestive Heart Failure: No COPD: No Cerebrovascular Accident: No Diabetes: Yes (INSULIN DEPENDENT) Patient Takes Glucophage: No Diminished Hearing: No Endocrine: Yes Gastrointestinal Disorders: Yes (GASTROPARESIS, GASTRITIS ) GERD: Yes Glaucoma: No Genitourinary: No Headaches: Yes Hepatitis: No Hiatal Hernia: No Hypertension: Yes Immune Disorder: No Implanted Vascular Access Dvce: No Kidney Stones: No Musculoskeletal: Yes Neurologic: Yes (NEUROPATHY IN BILATERAL FEET) Psychiatric: Yes Reproductive: Yes (PRONE TO FREQUESNT YEAST INFECTIONS) Respiratory: No Immunizations Current: No Migraines: No Myocardial Infarction: No Radiation Therapy: No Renal Failure: No Seizures: No Sleep Apnea: Yes (no cpap) Thyroid Disease: No Ulcer: No ?: Not Menopausal: Yes : 3 Para: 2 Miscarriage: 1 Tubal Ligation: Yes Past Surgical History Abdominal Surgery: Yes (GALLBLADDER, ADHESIONS REMOVED, LAP PROCEDURE FOR CELIAC ARTERY) AICD: No Cardiac Surgery: No Section: Yes (X 2) Cholecystectomy: Yes Ear Surgery: No Eye Surgery: No Genitourinary Surgery: No Gynecologic Surgery: Yes (2 C SECTIONS, TUBAL LIGATION ) Neurologic Surgery: No Oral Surgery: Yes (WISDOM TEETH ) Pacemaker: No Thoracic Surgery: No Other Surgery: Yes (LAPAROSCOPY, celiac artery decompressed) Social History Alcohol Use: Yes (on occasion) Tobacco Use: No (quit 1997) Substance Use: No Allergies-Medications (Allergen,Severity, Reaction): Coded Allergies: Sulfa (Sulfonamide Antibiotics) (Unverified Allergy, Severe, BREATHING DIFFICULTIES, 12/24/17) gabapentin (Verified Allergy, Severe, AMNESIA, 12/24/17) Reported Meds & Prescriptions Reported Meds & Active Scripts Active Phenergan (Promethazine HCl) 25 Mg Tablet 25 Mg PO Q6H PRN Gas Relief Maximum Streng (Simethicone) 125 Mg Chw 125 Mg PO Q8H Pantoprazole (Pantoprazole Sodium) 40 Mg Tab 40 Mg PO DAILY Reported Erythromycin (Erythromycin Base) 250 Mg Capsule.dr PO TID Hyoscyamine (Hyoscyamine Sulfate) 0.125 Mg Tab 0.125 Mg PO TID Bumetanide 1 Mg Tab 1 Mg PO DAILY Humulin R U-500 (Concentrate) Inj (Insulin Regular (Human) Concentrate Inj) 10, 000 Unit/20 Ml Vial 55 Units SQ TID Creon (Amylase/Lipase/Protease) 24,000-76,000-120,000 Units Cap 2 Cap PO QID Carvedilol 12.5 Mg Tab 12.5 Mg PO BID Lisinopril 20 Mg Tab 20 Mg PO BID Lyrica (Pregabalin) 75 Mg Cap 75 Mg PO TID Cymbalta DR (Duloxetine HCl) 60 Mg Capdr 60 Mg PO DAILY Review of Systems Except as stated in HPI: all other systems reviewed are Neg Gastrointestinal: Positive: Nausea, Abdominal Pain (distended abdo pain nausea) Physical Exam Narrative GENERAL: non toxic appearing SKIN: Warm and dry. HEAD: Atraumatic. Normocephalic. EYES: Pupils equal and round. No scleral icterus. No injection or drainage. ENT: No nasal bleeding or discharge. Mucous membranes pink and moist. NECK: Trachea midline. No JVD. CARDIOVASCULAR: Regular rate and rhythm. RESPIRATORY: No accessory muscle use. Clear to auscultation. Breath sounds equal bilaterally. GASTROINTESTINAL: Abdomen distended tender to epigastrum Hepatic and splenic margins not palpable. MUSCULOSKELETAL: Extremities without clubbing, cyanosis, or edema. No obvious deformities. NEUROLOGICAL: Awake and alert. No obvious cranial nerve deficits. Motor grossly within normal limits. Five out of 5 muscle strength in the arms and legs. Normal speech. PSYCHIATRIC: Appropriate mood and affect; insight and judgment normal. Data Data Last Documented VS Vital Signs Date Time Temp Pulse Resp B/P (MAP) Pulse Ox O2 Delivery O2 Flow Rate FiO2 12/24/17 21:26 90 16 139/67 (91) 99 Room Air 12/24/17 20:09 97.7 Orders Orders Complete Blood Count With Diff (12/24/17 21:51) Comprehensive Metabolic Panel (12/24/17 21:51) Lipase (12/24/17 21:51) Lactic Acid (12/24/17 21:51) Urinalysis - C+S If Indicated (12/24/17 21:51) Abdomen, Flat & Upright (12/24/17 ) Iv Access Insert/Monitor (12/24/17 21:51) Ecg Monitoring (12/24/17 21:51) Oximetry (12/24/17 21:51) Sodium Chloride 0.9% Flush (Ns Flush) (12/24/17 22:00) Al-Mag Hy-Si 40-40-4 Mg/Ml Liq (Mag-Al P (12/24/17 22:00) Lidocaine 2% Viscous (Xylocaine 2% Visco (12/24/17 22:00) Ondansetron Odt (Zofran Odt) (12/24/17 22:00) Famotidine Inj (Pepcid Inj) (12/24/17 22:00) Morphine Inj (Morphine Inj) (12/25/17 00:45) Urine Culture (12/25/17 00:33) Ceftriaxone Inj (Rocephin Inj) (12/25/17 02:00) Labs Laboratory Tests Test 12/24/17 22:30 12/25/17 00:33 White Blood Count 12.8 TH/MM3 Red Blood Count 4.63 MIL/MM3 Hemoglobin 12.9 GM/DL Hematocrit 39.9 % Mean Corpuscular Volume 86.1 FL Mean Corpuscular Hemoglobin 27.8 PG Mean Corpuscular Hemoglobin Concent 32.3 % Red Cell Distribution Width 14.5 % Platelet Count 294 TH/MM3 Mean Platelet Volume 7.5 FL Neutrophils (%) (Auto) 64.5 % Lymphocytes (%) (Auto) 27.7 % Monocytes (%) (Auto) 7.0 % Eosinophils (%) (Auto) 0.3 % Basophils (%) (Auto) 0.5 % Neutrophils # (Auto) 8.3 TH/MM3 Lymphocytes # (Auto) 3.6 TH/MM3 Monocytes # (Auto) 0.9 TH/MM3 Eosinophils # (Auto) 0.0 TH/MM3 Basophils # (Auto) 0.1 TH/MM3 CBC Comment DIFF FINAL Differential Comment Blood Urea Nitrogen 13 MG/DL Creatinine 0.80 MG/DL Random Glucose 239 MG/DL Total Protein 6.9 GM/DL Albumin 3.2 GM/DL Calcium Level 9.0 MG/DL Alkaline Phosphatase 72 U/L Aspartate Amino Transf (AST/SGOT) 19 U/L Alanine Aminotransferase (ALT/SGPT) 41 U/L Total Bilirubin 0.7 MG/DL Sodium Level 140 MEQ/L Potassium Level 3.7 MEQ/L Chloride Level 105 MEQ/L Carbon Dioxide Level 26.7 MEQ/L Anion Gap 8 MEQ/L Estimat Glomerular Filtration Rate 76 ML/MIN Lactic Acid Level 1.8 mmol/L Lipase 153 U/L Urine Color YELLOW Urine Turbidity CLEAR Urine pH 5.0 Urine Specific Keyser 1.018 Urine Protein NEG mg/dL Urine Glucose (UA) 50 mg/dL Urine Ketones NEG mg/dL Urine Occult Blood SMALL Urine Nitrite POS Urine Bilirubin NEG Urine Urobilinogen LESS THAN 2 mg/dL Urine Leukocyte Esterase TRACE Urine RBC 1 /hpf Urine WBC 11 /hpf Urine Squamous Epithelial Cells 1 /hpf Urine Bacteria MANY /hpf Urine Mucus FEW /lpf Microscopic Urinalysis Comment CULTURE INDICATED MDM Medical Decision Making Medical Screen Exam Complete: Yes Emergency Medical Condition: Yes Medical Record Reviewed: Yes Diagnosis Primary Impression: Gastroparesis Patient Instructions: Abdominal Pain (ED), General Instructions Scripts Cephalexin (Keflex) 500 Mg Cap 500 MG PO Q8H for Infection, #21 CAP 0 Refills Prov: Ludwig Schmitz MD 12/25/17 Ludwig Schmitz MD Dec 24, 2017 22:25
[2017-12-24 22:35] LABS: AUTOMATED NEUTROPHIL # 8.3 TH/MM3 (1.8-7.7); BASOPHIL # 0.1 TH/MM3 (0-0.2); BASOPHIL % 0.5 % (0.0-2.0); EOSINOPHIL % 0.3 % (0.0-4.0); HEMATOCRIT 39.9 % (35.0-46.0); HEMOGLOBIN 12.9 GM/DL (11.6-15.3); LYMPH % 27.7 % (9.0-44.0); LYMPHOCYTE # 3.6 TH/MM3 (1.0-4.8); MEAN CELL VOLUME 86.1 FL (80.0-100.0); MEAN CORPUSCULAR HEMOGLOBIN 27.8 PG (27.0-34.0); MEAN CORPUSCULAR HGB CONC 32.3 % (32.0-36.0); MEAN PLATELET VOLUME 7.5 FL (7.0-11.0); MONOCYTE # 0.9 TH/MM3 (0-0.9); NEUT % 64.5 % (16.0-70.0); PLATELET COUNT 294 TH/MM3 (150-450); RED BLOOD COUNT 4.63 MIL/MM3 (4.00-5.30); RED CELL DISTRIBUTION WIDTH 14.5 % (11.6-17.2); WHITE BLOOD COUNT 12.8 TH/MM3 (4.0-11.0)
[2017-12-24 22:57] LABS: ALT (GPT) 41 U/L (10-53)
[2017-12-24 22:59] LABS: ALKALINE PHOSPHATASE 72 U/L (45-117); TOTAL BILIRUBIN ADULT 0.7 MG/DL (0.2-1.0); TOTAL PROTEIN 6.9 GM/DL (6.4-8.2)
[2017-12-24 23:08] LABS: ALBUMIN 3.2 GM/DL (3.4-5.0); AST (GOT) 19 U/L (15-37); BICARBONATE 26.7 MEQ/L (21.0-32.0); BLOOD UREA NITROGEN 13 MG/DL (7-18); CHLORIDE 105 MEQ/L (98-107); GLOMERULAR FILTRATION RATE 76 ML/MIN (>89); GLUCOSE,RANDOM 239 MG/DL (74-106); SODIUM (NA) 140 MEQ/L (136-145)
[2017-12-25] MEDS ORDERED: MORPHINE SULFATE 4 MG/ML INJ IV PUSH ONE (00:45)
[2017-12-25 01:10] LABS: BACTERIA, URINE MANY /hpf; BILIRUBIN, URINE NEG (NEG); BLOOD, URINE SMALL (NEG); GLUCOSE,URINE 50 mg/dL (NEG); KETONE, URINE NEG (NEG); MUCUS URINE FEW /lpf (OCC); NITRITE,URINE POS (NEG); SQUAMOUS EPITHELIAL CELL URINE 1 /hpf (0-5); URINE COLOR YELLOW (YELLW/STRAW); URINE LEUKOCYTE ESTERASE TRACE (NEG)
[2017-12-25] MEDS ORDERED: cefTRIAXone INJ 1,000 MG in SODIUM CHLORIDE 0.9% INJ 100 ML IV ONE (02:00)
[2017-12-25] MEDS ORDERED: CEPH-460 PO (02:16)
== END 2017-12-25 02:40 | disposition home or self-care (01) ==
LOC: NEPE 19:38
DX: E11.43 Type 2 diabetes mellitus with diabetic autonomic (poly)neuropathy (principal); K31.84 Gastroparesis; B96.1 Klebsiella pneumoniae [K. pneumoniae] as the cause of diseases classified elsewhere; E11.40 Type 2 diabetes mellitus with diabetic neuropathy, unspecified; M19.90 Unspecified osteoarthritis, unspecified site; I10 Essential (primary) hypertension; E78.00 Pure hypercholesterolemia, unspecified; K21.9 Gastro-esophageal reflux disease without esophagitis; G47.30 Sleep apnea, unspecified
CPT/HCPCS: 74019; 80053; 81001; 83605; 83690; 85025; 87077; 87086; 87186; 96365; 96375; 99284; J0696; J2270

== ENCOUNTER 2018-01-31 12:47 | Observation (INO) ==
[2018-01-31] MEDS ORDERED: Morphine Inj 4 MG/ML Vial IV.PUSH ONE (13:12)
[2018-01-31 13:31] LABS: Baso # (Auto) 0.7 th/mm3 (0.0-0.2); Baso % (Auto) 4.6 % (0.0-2.0); Eos # (Auto) 0.1 th/mm3 (0.0-0.4); Eos % (Auto) 0.5 % (0.0-4.0); Hematocrit 39.7 % (35.0-46.0); Hemoglobin 13.4 gm/dL (11.6-15.3); Lymph # (Auto) 1.8 th/mm3 (1.0-4.8); Lymph % (Auto) 11.6 % (9.0-44.0); Mean Corpuscular HGB Conc 33.6 % (32.0-36.0); Mean Corpuscular Hemoglobin 29.3 pg (27.0-34.0); Mean Corpuscular Volume 87.3 fL (80.0-100.0); Mean Platelet Volume 7.6 fL (7.0-11.0); Mono # (Auto) 0.7 th/mm3 (0.0-0.9); Mono % (Auto) 4.8 % (0.0-8.0); Neut # (Auto) 12.2 th/mm3 (1.8-7.7); Neut % (Auto) 78.5 % (16.0-70.0); Platelet Count 302 th/mm3 (150-450); Red Blood Count 4.55 mil/mm3 (4.00-5.30); Red Cell Distribution Width 13.7 % (11.6-17.2); White Blood Count 15.5 th/mm3 (4.0-11.0)
--- NOTE | 2018-01-31 13:36 | ED ---
HPI General Chief complaint: Chest Pain Stated complaint: Chest tightness/swelling this am Time Seen by Provider: 01/31/18 12:54 Source: patient Mode of arrival: ambulatory Limitations: no limitations History of Present Illness HPI narrative: Patient is a 52 year old female who comes in complaining of chest pain, swelling to her body, abdominal pain with nausea and vomiting. She has a history of gastroparesis and says she has been vomiting for the past 4 days. She says that she has noticed her legs getting increasingly swollen and then her abdomen became more tense and swollen. She says today she felt tightness in her upper extremities as well. She says the chest pain started this morning and feels like a pressure in her chest. She says she has never had this before, and it made her nervous. She has been taking all of her medications as prescribed. She denies fever chills. She did take a baby aspirin prior to coming in, but says this did not change her symptoms. Severity is moderate. Related Data Home Medications Medication Instructions Recorded Confirmed Humulin R U-500 (Conc) Kwikpen 55 units SUB-Q TID 01/31/18 01/31/18 budesonide 3 mg PO DAILY 01/31/18 01/31/18 bumetanide 2 mg PO DAILY 01/31/18 01/31/18 buspirone 5 mg PO TID 01/31/18 01/31/18 carvedilol 12.5 mg PO BID 01/31/18 01/31/18 dicyclomine 20 mg PO QID 01/31/18 01/31/18 erythromycin 250 mg PO Q6H 01/31/18 01/31/18 [id number] [Creon] 1 tab PO QID 01/31/18 01/31/18 metoclopramide HCl [Reglan] 10 mg PO DAILY 01/31/18 01/31/18 pantoprazole 40 mg PO DAILY 01/31/18 01/31/18 pregabalin [Lyrica] 75 mg PO DAILY 01/31/18 01/31/18 tramadol 50 mg PO Q6HR PRN 01/31/18 01/31/18 Allergies Allergy/AdvReac Type Severity Reaction Status Date / Time gabapentin Allergy Severe AMNESIA Verified 01/31/18 12:54 Sulfa (Sulfonamide Allergy Severe BREATHING Verified 01/31/18 12:54 Antibiotics) DIFFICULTIES Review of Systems Except as stated in HPI: all other systems reviewed are negative Constitutional Denies chills and Denies fever(s) ENT Denies dizziness and Denies headache(s) Cardiovascular Reports chest pain, Reports edema and Denies dyspnea Respiratory Denies cough Gastrointestinal Reports abdominal pain, Reports nausea and Reports vomiting Musculoskeletal Denies myalgias and Denies arthralgias Integumentary/Breasts Denies lesions Neurologic Denies focal weakness [facility] Medical History Medical History Chronic abdominal pain (Acute) Diabetes (Acute) Edema (Acute) Gastroparesis (Acute) Hypertension (Acute) Surgical History Surgical History History of delivery (Acute) History of cholecystectomy (Acute) Social History Social History Substance History: No History of Abuse Second Hand Smoke Exposure: No Smoking Status: Former smoker How Often Do You Have a Drink Containing Alcohol: Monthly or less Recent Travel in [facility] within the Last 8 Weeks: No Recent Out of Country Travel within the Last 8 Weeks: No Immunization History Tetanus Immunization: <5 Years Hx Influenza Vaccine This Season: Yes Exam Narrative Exam Narrative: GENERAL: Awake and alert, in no acute distress. SKIN: Focused skin assessment warm/dry. No wounds or signs of infection. HEAD: Atraumatic. Normocephalic. EYES: Pupils equal and round. No scleral icterus. ENT: Mucous membranes pink and moist. NECK: Trachea midline. No JVD. CARDIOVASCULAR: Regular rate and rhythm. No murmur appreciated. RESPIRATORY: No accessory muscle use. Clear to auscultation. Breath sounds equal bilaterally. GASTROINTESTINAL: Abdomen distended, diffusely tender to palpation. MUSCULOSKELETAL: No obvious deformities. No clubbing. No cyanosis. Bilateral 2 + pitting edema of the lower extremities. NEUROLOGICAL: Awake and alert. No obvious cranial nerve deficits. Motor grossly within normal limits. Normal speech. PSYCHIATRIC: Appropriate mood and affect; insight and judgment normal. Course Initial Documented Vital Signs Pulse Rate 109 H 01/31/18 12:49 Respiratory Rate 16 01/31/18 12:49 Blood Pressure 170/71 H 01/31/18 12:49 Pulse Oximetry 97 01/31/18 12:49 Last Documented Vital Signs Pulse Rate 97 H 01/31/18 17:22 Respiratory Rate 20 01/31/18 16:35 Blood Pressure 152/76 H 01/31/18 16:35 Pulse Oximetry 96 01/31/18 16:35 Medical Decision Making MDM Narrative Medical decision making narrative: She is a 52-year-old female with history of gastroparesis, who comes in complaining of chest pain. She does note that she has had nausea and vomiting for the past for 5 days, which is typical of her gastroparesis. She says this morning she woke up with pressure in her chest, and this scared her, so she came into the hospital. She is also noted swelling to her body. IV established, labs sent. Patient does have pitting edema of her lower extremities, no other evidence of swelling. Labs show no acute abnormalities other than a white blood cell count of 15.5. CT of the abdomen pelvis shows no evidence of ascites. Chest x-ray shows no evidence of pulmonary edema. Based on patient's symptoms of chest pain and her history of diabetes and high blood pressure, I believe she needs further workup to rule out ACS. She will be admitted for further management. Differential Diagnosis Differential Diagnosis: CHF versus anasarca versus ACS versus NSTEMI versus STEMI Medical Records Medical records reviewed: Yes I reviewed the patient's medical records. Lab Data Lab results reviewed: Yes I reviewed the patient's lab results. Result diagrams: 01/31/18 13:20 01/31/18 13:20 Lab Results 01/31/18 01/31/18 01/31/18 Range/Units 13:20 13:20 13:20 CBC w Diff Slide review pending WBC 15.5 H (4.0-11.0) th/mm3 RBC 4.55 (4.00-5.30) mil/mm3 Hgb 13.4 (11.6-15.3) gm/dL Hct 39.7 (35.0-46.0) % MCV 87.3 (80.0-100.0) fL MCH 29.3 (27.0-34.0) pg MCHC 33.6 (32.0-36.0) % RDW 13.7 (11.6-17.2) % Plt Count 302 (150-450) th/mm3 MPV 7.6 (7.0-11.0) fL Neut % (Auto) 78.5 H (16.0-70.0) % Lymph % (Auto) 11.6 (9.0-44.0) % [place] % (Auto) 4.8 (0.0-8.0) % Eos % (Auto) 0.5 (0.0-4.0) % Baso % (Auto) 4.6 H (0.0-2.0) % Neut # (Auto) 12.2 H (1.8-7.7) th/mm3 Lymph # (Auto) 1.8 (1.0-4.8) th/mm3 [place] # (Auto) 0.7 (0.0-0.9) th/mm3 Eos # (Auto) 0.1 (0.0-0.4) th/mm3 Baso # (Auto) 0.7 H (0.0-0.2) th/mm3 WBC Differential . Diff Scan Auto diff confirmed Differential Comment . Platelet Estimate Normal (Normal) Platelet Morphology Normal (Normal) RBC Morphology Normal (Normal) PT 9.4 L (9.8-11.6) sec INR 0.9 Ratio APTT 19.1 L (24.3-30.1) sec Sodium 139 (136-145) meq/L Potassium 4.1 (3.5-5.1) meq/L Chloride 104 (98-107) meq/L Carbon Dioxide 25.6 (21.0-32.0) meq/L Anion Gap 9 (5-15) meq/L BUN 9 (7-18) mg/dL Creatinine 0.90 (0.50-1.00) mg/dL Estimated GFR 66 L (>89) mL/min Random Glucose 333 H (74-106) mg/dL Calcium 7.9 L (8.5-10.1) mg/dL Total Bilirubin (0.2-1.0) mg/dL Direct Bilirubin (0.0-0.2) mg/dL Indirect Bilirubin (0.0-0.8) mg/dL AST (15-37) U/L ALT (10-53) U/L Alkaline Phosphatase (45-117) U/L Total Creatine Kinase 109 (26-192) U/L CK-MB (CK-2) 2.1 (0.5-3.6) ng/mL Troponin I 0.02 (0.02-0.05) ng/mL B-Natriuretic Peptide (0-100) pg/mL Total Protein (6.4-8.2) g/dL Albumin (3.4-5.0) g/dL Lipase (73-393) U/L 01/31/18 01/31/18 01/31/18 Range/Units 13:20 13:35 13:35 CBC w Diff WBC (4.0-11.0) th/mm3 RBC (4.00-5.30) mil/mm3 Hgb (11.6-15.3) gm/dL Hct (35.0-46.0) % MCV (80.0-100.0) fL MCH (27.0-34.0) pg MCHC (32.0-36.0) % RDW (11.6-17.2) % Plt Count (150-450) th/mm3 MPV (7.0-11.0) fL Neut % (Auto) (16.0-70.0) % Lymph % (Auto) (9.0-44.0) % [place] % (Auto) (0.0-8.0) % Eos % (Auto) (0.0-4.0) % Baso % (Auto) (0.0-2.0) % Neut # (Auto) (1.8-7.7) th/mm3 Lymph # (Auto) (1.0-4.8) th/mm3 [place] # (Auto) (0.0-0.9) th/mm3 Eos # (Auto) (0.0-0.4) th/mm3 Baso # (Auto) (0.0-0.2) th/mm3 WBC Differential Diff Scan Differential Comment Platelet Estimate (Normal) Platelet Morphology (Normal) RBC Morphology (Normal) PT (9.8-11.6) sec INR Ratio APTT (24.3-30.1) sec Sodium (136-145) meq/L Potassium (3.5-5.1) meq/L Chloride (98-107) meq/L Carbon Dioxide (21.0-32.0) meq/L Anion Gap (5-15) meq/L BUN (7-18) mg/dL Creatinine (0.50-1.00) mg/dL Estimated GFR (>89) mL/min Random Glucose (74-106) mg/dL Calcium (8.5-10.1) mg/dL Total Bilirubin 0.9 (0.2-1.0) mg/dL Direct Bilirubin 0.2 (0.0-0.2) mg/dL Indirect Bilirubin 0.7 (0.0-0.8) mg/dL AST 42 H (15-37) U/L ALT 53 (10-53) U/L Alkaline Phosphatase 84 (45-117) U/L Total Creatine Kinase (26-192) U/L CK-MB (CK-2) (0.5-3.6) ng/mL Troponin I (0.02-0.05) ng/mL B-Natriuretic Peptide 24 (0-100) pg/mL Total Protein 7.0 (6.4-8.2) g/dL Albumin 2.8 L (3.4-5.0) g/dL Lipase 184 (73-393) U/L Imaging Data Radiologist's impression: Chest X-Ray 01/31/18 00:00 CONCLUSION: No acute cardiopulmonary disease. Abdomen/Pelvis CT 01/31/18 13:12 CONCLUSION: Essentially unremarkable study. ECG Data EKG Prior to Arrival: No Attestation: I personally reviewed and interpreted this ECG as follows: Interpretation: ECG shows sinus tachycardia at a rate of 104, no ST elevation or depression, normal intervals Discharge Plan Discharge Disposition Patient Disposition: 30 Still Patient Discharge Condition Condition: Stable Discharge Details Diagnosis: Atypical chest pain Physicians Team ED Provider: Purvi Alvarado Primary Care Provider: Manisha Estrada Attending Provider: Lewis Jacob Other Providers: Lewis Jacob Discharge Interventions Interventions: ED Discharge Assessment Last Done: 01/31/18 16:54 Vital Signs Last Done: 01/31/18 16:35 Status ED Status: Left Department Discharge Information Discharge Date/Time: 01/31/18 16:57
[2018-01-31 13:38] LABS: Chloride 104 meq/L (98-107); Potassium 4.1 meq/L (3.5-5.1); Sodium 139 meq/L (136-145)
--- NOTE | 2018-01-31 13:40 | XR ---
EXAM DATE: 01/31/2018 1:21 PM EDT AGE/SEX: 52 years / Female INDICATIONS: Chest pain today CLINICAL DATA: This is the patient's initial encounter. Patient reports that signs and symptoms have been present for 1 day and indicates a pain score of 8/10. MEDICAL/SURGICAL HISTORY: Gastroparesis. None. COMPARISON: [facility] [place], CHEST SINGLE AP, 09/19/2017. . FINDINGS: The lungs are clear without infiltrate, nodule, or mass. There is no appreciable pleural effusion for technique. Heart and mediastinum are unremarkable. CONCLUSION: No acute cardiopulmonary disease. Electronically signed by: Lela Santamaria MD 01/31/2018 1:38 PM EDT
[2018-01-31 13:41] LABS: Anion Gap 9 meq/L (5-15); Calcium 7.9 mg/dL (8.5-10.1); Carbon Dioxide 25.6 meq/L (21.0-32.0); Glucose,Random 333 mg/dL (74-106)
[2018-01-31 13:42] LABS: Blood Urea Nitrogen 9 mg/dL (7-18)
[2018-01-31 13:45] LABS: Glomerular Filtration Rate 66 mL/min (>89)
[2018-01-31 13:48] LABS: Creatine Kinase 109 U/L (26-192)
[2018-01-31 13:49] LABS: Troponin I 0.02 ng/mL (0.02-0.05)
[2018-01-31 13:50] LABS: INR 0.9 Ratio; Prothrombin Time 9.4 sec (9.8-11.6)
[2018-01-31 13:53] LABS: Activated Partial Thrombo Time 19.1 sec (24.3-30.1)
[2018-01-31 13:56] LABS: Platelet Estimate Normal (Normal); Platelet Morphology Normal (Normal); RBC Morphology Normal (Normal)
[2018-01-31 14:00] LABS: Creatine Kinase MB 2.1 ng/mL (0.5-3.6)
--- NOTE | 2018-01-31 14:38 | CT ---
EXAM DATE: 01/31/2018 2:30 PM EDT AGE/SEX: 52 years / Female INDICATIONS: Abdominal distention. CLINICAL DATA: This is the patient's initial encounter. Patient reports that signs and symptoms have been present for 1 day and indicates a pain score of 5/10. MEDICAL/SURGICAL HISTORY: Diabetes. Gastroparesis. Hypertension. Cholecystectomy. s ection. ORAL CONTRAST: No oral contrast ingested. RADIATION DOSE: 22.35 CTDI (mGy) [place] [facility] [place]/20/2017. . TECHNIQUE: Multiple contiguous axial images were obtained through the abdomen and pelvis following b olus infusion of 95 ml Omnipaque 350 (iohexol) nonionic water-soluble contrast as a single exam dos e. No oral contrast ingested. Using automated exposure control and adjustment of the mA and/or kV ac cording to patient size, radiation dose was kept as low as reasonably achievable to obtain optimal di agnostic quality images. DICOM format image data is available electronically for review and comparis on. FINDINGS: Abdomen CT: The liver, spleen, pancreas, right kidney, adrenals are unremarkable. Approximate 1.9 cm cyst is pres ent in left kidney. There is no evidence for any appreciable pathological adenopathy, free fluid, or bowel obstruction. There is evidence for prior cholecystectomy. Pelvic CT: There is no evidence for mass, abscess formation, or any significant adenopathy within the pelvis. T here is moderate amount of stool in the colon. There are tiny subcentimeter bone islands in the left symphysis pubis and femoral head. CONCLUSION: Essentially unremarkable study. Electronically signed by: Lela Santamaria MD 01/31/2018 2:37 PM EDT
[2018-01-31 14:48] LABS: Albumin 2.8 g/dL (3.4-5.0)
[2018-01-31] MEDS ORDERED: Ketorolac Inj 30 MG/ML (IVP) Vial IV.PUSH ONE (14:50)
[2018-01-31] MEDS ORDERED: ERYTHROMYCIN 250 MG PO SCH (19:15)
[2018-01-31] MEDS ORDERED: Dextrose 50% in Water 50 ML Vial IV.PUSH PRN (19:26)
--- NOTE | 2018-01-31 21:44 | MH ---
cc: Lewis Jacob MD DATE OF ADMISSION: 01/31/2018 ADMISSION DIAGNOSES: 1. Atypical chest pain that would appear to be musculoskeletal in origin. 2. Chronic gastroparesis with slight increased vomiting. 3. Increased generalized edema, most likely secondary to steroid use. 4. Gastroesophageal reflux disease. 5. Hiatal hernia. 6. Hypertension. 7. Type 2 diabetes with neuropathy. 8. Hyperlipidemia. PERTINENT HISTORY: This is a 52-year-old white female with a long history of gastroparesis, on multiple medications, who has been on Reglan and erythromycin, and she states about 2 months ago, she was started on budesonide for her GI problems. She has gained weight since then with increased swelling. She has put on about 10 pounds, especially even in the last week. In the last few days, her skin has felt tight just from the swelling. Her face has been a little puffy and her arms have been puffy and feet and legs. Her abdomen has felt a little more puffy and tight. She describes this kind of soreness of her upper arms and chest, and it is a little uncomfortable when she takes a deep breath due to expansion of her chest. She normally has recurrent vomiting due to her gastroparesis, but recently, she has maybe had a couple more episodes of vomiting after eating than usual. She is having normal bowel movements with no constipation or rectal bleeding. No hematemesis. No fever or chills. In the ED, a CT scan of the abdomen showed no acute process. Chest x-ray showed no acute process as well. Her troponin level was normal. She was originally just going to be admitted to the chest pain center under Dr. Canela, but when Dr. Canela evaluated her, she did not feel like her symptoms warranted the chest pain center and called me for admission since I am covering the [facility] this week. She is comfortable at the time I am seeing her. MEDICAL HISTORY: As mentioned, she has had a long history of gastroparesis, gastroesophageal reflux disease, hiatal hernia, hypertension, type 2 diabetes mellitus with diabetic neuropathy. She has had pancreatitis in the past. She apparently has some pancreatic insufficiency because she is on Creon for digestion. She has hyperlipidemia, but she states that for some reason she stopped her Crestor about 5 months ago. She was not specifically told to stop it. She had gastritis on a prior EGD on 03/26/2015. She had a negative colonoscopy in 2004. She denies any history of heart attack, CHF, angina. No liver or kidney disease or peptic ulcer disease. She has had no strokes, seizures or cancer. She has had chickenpox. SURGICAL HISTORY: She had a LEEP, x2, laparoscopy with lysis of adhesions on 2 prior occasions. She has had a laparoscopic cholecystectomy, colonoscopy on 12/24/2004, EGD on 03/26/2015. She had some sort of robotic ligament release procedure that was affecting one of her intestinal arteries in the fall of . This was done by Dr. Soares. It was a robotic-assisted laparoscopic division of the median arcuate ligament on 04/22/ that was constricting the proximal celiac artery. ALLERGIES: SULFA. MEDICATIONS: She is on: 1. Pantoprazole 40 mg twice a day. 2. Reglan 10 mg t.i.d. with meals. 3. Lyrica 75 mg daily. 4. Budesonide 3 mg extended release capsule 1 daily. 5. Bumetanide 2 mg daily. 6. Buspirone 5 mg 3 times a day for anxiety. 7. Carvedilol 12.5 mg twice a day. 8. Creon 24,000/76,000/120,000 unit delayed capsule 2 tablets 4 times a day. 9. Dicyclomine 20 mg 4 times a day. 10. Erythromycin 250 mg 4 times a day. 11. Humulin R insulin 55 units subcutaneous 3 times a day. 12. Tramadol 50 mg q.6 hours, only rarely uses for pain. 13. Duloxetine 60 mg a day. FAMILY HISTORY: Her mother at 55 of emphysema. Father at 72 of COPD. 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 Does not use alcohol. She used to smoke 1 pack a day for 14 years, but quit 20 years ago. REVIEW OF SYSTEMS: GENERAL: No fever, chills or sweats. HEENT: Without any runny nose, sore throat. No visual complaints. CARDIOVASCULAR: No typical angina. No orthopnea or PND. No palpitations. PULMONARY: No shortness of breath, cough or wheezing. GASTROINTESTINAL: As mentioned. GENITOURINARY: No dysuria, urgency, frequency, hematuria. MUSCULOSKELETAL: With just some sore muscles in her chest and arms. PSYCHIATRIC: She is stable with her anxiety. SKIN: Without rash. NEUROLOGIC: No focal weakness or confusion. She does have tingling and numbness in both feet from her neuropathy. PHYSICAL EXAMINATION: GENERAL: Obese white female in no acute distress. VITAL SIGNS: Her pulse has been in the 90s and regular, respirations 18 and 20, BP 152/76, O2 saturation 96% on room air. HEENT: Pupils equal. Sclerae nonicteric. Nose without lesion. Mouth without inflammation or lesions. NECK: Without bruit. No JVD. HEART: Regular rate and rhythm. No murmur. LUNGS: Clear. CHEST: She has definite tenderness to palpation across her anterior chest that appears to be musculoskeletal. ABDOMEN: Soft. She has just some slight bloating. No significant tenderness. No masses. EXTREMITIES: She does have some 2+ edema of the lower extremities. SKIN: Without rash. NEUROLOGIC: Oriented x 3. Cranial nerves intact. Motor strength symmetrical. I should mention, she does have some steroid effect and cushingoid type features, likely from her steroid use. LABORATORY DATA: Showed white count of 15.5, hemoglobin 13.4, platelets were normal. Her troponin was normal. CK was normal. Lipase was normal at 184. Her random glucose was 333. Rest of electrolytes, BUN and creatinine were normal. As mentioned, her CT scan of the abdomen showed an unremarkable study. Chest x-ray was negative. EKG showed no acute process. ASSESSMENT: As noted. PLAN: We will give her some Bumex IV to see if that will reduce some of her fluid. I do not think her atypical chest pain symptoms have been cardiac in origin, but we will just repeat some troponins. She will be admitted to observation. We will give her some Bumex, as mentioned, 2 mg q.12 hours. We will just maintain her on sliding scale insulin coverage over the next 24 hours. We will maintain her on her regular medicines for now. We will likely be able to discharge her tomorrow, probably on an increased dose of diuretic and then follow up with her GI doctor to consider maybe tapering down on her budesonide to help prevent increased swelling and weight gain. She will need to follow up with her primary care physician, Dr. Estrada. We will allow her to ambulate without any restrictions. MD NANCIE Love/josiah/earnest , 07:50 PM , 08:06 PM
[2018-01-31] MEDS: Carvedilol 12.5 MG Tablet PO SCH (22:26)
[2018-01-31] MEDS: Insulin NovoLOG Aspart Correctional Sugar Inj SQ SCH (22:27)
[2018-01-31] MEDS: Lipase/Protease/Amylase 24/76/120 DR Capsule PO SCH (22:33)
[2018-02-01 06:31] LABS: Potassium 3.6 meq/L (3.5-5.1)
[2018-02-01 06:33] LABS: Baso # (Auto) 0.1 th/mm3 (0.0-0.2); Baso % (Auto) 0.5 % (0.0-2.0); Eos # (Auto) 0.1 th/mm3 (0.0-0.4); Eos % (Auto) 0.5 % (0.0-4.0); Hematocrit 37.3 % (35.0-46.0); Hemoglobin 12.7 gm/dL (11.6-15.3); Lymph % (Auto) 22.3 % (9.0-44.0); Mean Corpuscular Hemoglobin 29.6 pg (27.0-34.0); Mean Platelet Volume 7.6 fL (7.0-11.0); Mono # (Auto) 0.7 th/mm3 (0.0-0.9); Mono % (Auto) 5.6 % (0.0-8.0); Neut # (Auto) 9.5 th/mm3 (1.8-7.7); Neut % (Auto) 71.1 % (16.0-70.0); Platelet Count 276 th/mm3 (150-450); Red Blood Count 4.29 mil/mm3 (4.00-5.30); Red Cell Distribution Width 13.6 % (11.6-17.2); White Blood Count 13.4 th/mm3 (4.0-11.0)
[2018-02-01 06:37] LABS: Calcium 8.7 mg/dL (8.5-10.1); Carbon Dioxide 28.7 meq/L (21.0-32.0)
[2018-02-01] MEDS ORDERED: Pregabalin 75 MG Capsule PO SCH (09:00)
[2018-02-01] MEDS ORDERED: BUDESONIDE 3 MG PO SCH (09:00)
[2018-02-01] MEDS: Insulin NovoLOG Aspart Correctional Sugar Inj SQ SCH ×4 (09:19→21:52)
[2018-02-01] MEDS: Duloxetine 60 MG DR Capsule PO SCH (09:22)
[2018-02-01] MEDS: Carvedilol 12.5 MG Tablet PO SCH ×2 (09:22→21:50)
[2018-02-01] MEDS: Metoclopramide 10 MG Tablet PO SCH (09:22)
[2018-02-01] MEDS: Lipase/Protease/Amylase 24/76/120 DR Capsule PO SCH ×4 (09:27→21:50)
--- NOTE | 2018-02-01 11:08 | P.PN ---
Subjective Interval history: Patient still has some soreness across her upper chest. It still hurts a little to take a deep breath. She still has quite a bit of edema in her upper arms and lower extremities. Her nausea and vomiting has improved and she has not vomited since she has been in the hospital. Physical Exam Vital signs: Vital Signs 01/31/18 12:49 01/31/18 13:01 01/31/18 13:54 Temperature Pulse Rate 109 H Respiratory Rate 16 Blood Pressure 170/71 H Pulse Oximetry 97 96 96 01/31/18 15:38 01/31/18 15:39 01/31/18 16:35 Temperature Pulse Rate 90 92 H Respiratory Rate 18 20 20 Blood Pressure 175/77 H 152/76 H Pulse Oximetry 96 96 01/31/18 17:22 01/31/18 20:00 01/31/18 22:55 Temperature 97.6 F Pulse Rate 97 H 83 Respiratory Rate 20 7 L Blood Pressure 155/69 H Pulse Oximetry 94 L 02/01/18 00:00 02/01/18 04:00 02/01/18 08:00 Temperature 97.0 F L 97.6 F 97.3 F L Pulse Rate 85 89 86 Respiratory Rate 20 20 19 Blood Pressure 140/68 139/78 147/67 H Pulse Oximetry 94 L 96 96 Intake & Output 01/31/18 02/01/18 02/01/18 18:59 06:59 18:59 Intake Total 240 / 240 420 / 420 Output Total 600 / 600 Balance 240 / 240 -180 / -180 Weight 119.3 kg 119.3 kg Intake: Oral 240 / 240 420 / 420 Output: Urine 600 / 600 Other: # Voids 1 Weight On Admission 119.3 kg Narrative: This is a pleasant obese white female in no distress. She has slight Cushingoid appearance due to her steroid use. HEENT: Pupils equal, EOMs intact, sclera nonicteric, mouth without lesions, TMs intact, nose without lesions Neck: No JVD, neck is supple, no carotid bruit Heart: Regular rate and rhythm without murmurs or gallops Lungs: Clear to auscultation Chest: She has tenderness to palpation of her mid to upper chest in the sternal area Abdomen: Soft, nontender, no masses, no organomegaly Extremities: 2-3 edema of the lower extremities below the knees, pulses palpated , no calf tenderness Skin: Without lesions or rash Neuro: Alert, oriented, normal motor exam, sensation intact, cranial nerves intact Results - Labs CBC & Chem 7: 02/01/18 05:40 02/01/18 05:40 Laboratory Results - last 24 hr 01/31/18 01/31/18 01/31/18 13:20 13:20 13:20 CBC w Diff Slide review pending WBC 15.5 H RBC 4.55 Hgb 13.4 Hct 39.7 MCV 87.3 MCH 29.3 MCHC 33.6 RDW 13.7 Plt Count 302 MPV 7.6 Neut % (Auto) 78.5 H Lymph % (Auto) 11.6 [place] % (Auto) 4.8 Eos % (Auto) 0.5 Baso % (Auto) 4.6 H Neut # (Auto) 12.2 H Lymph # (Auto) 1.8 [place] # (Auto) 0.7 Eos # (Auto) 0.1 Baso # (Auto) 0.7 H WBC Differential . Diff Scan Auto diff confirmed Differential Comment . Platelet Estimate Normal Platelet Morphology Normal RBC Morphology Normal PT 9.4 L INR 0.9 APTT 19.1 L Sodium 139 Potassium 4.1 Chloride 104 Carbon Dioxide 25.6 Anion Gap 9 BUN 9 Creatinine 0.90 Estimated GFR 66 L POC Glucose Random Glucose 333 H Calcium 7.9 L Total Bilirubin Direct Bilirubin Indirect Bilirubin AST ALT Alkaline Phosphatase Total Creatine Kinase 109 CK-MB (CK-2) 2.1 Troponin I 0.02 B-Natriuretic Peptide Total Protein Albumin Lipase 01/31/18 01/31/18 01/31/18 13:20 13:35 13:35 CBC w Diff WBC RBC Hgb Hct MCV MCH MCHC RDW Plt Count MPV Neut % (Auto) Lymph % (Auto) [place] % (Auto) Eos % (Auto) Baso % (Auto) Neut # (Auto) Lymph # (Auto) [place] # (Auto) Eos # (Auto) Baso # (Auto) WBC Differential Diff Scan Differential Comment Platelet Estimate Platelet Morphology RBC Morphology PT INR APTT Sodium Potassium Chloride Carbon Dioxide Anion Gap BUN Creatinine Estimated GFR POC Glucose Random Glucose Calcium Total Bilirubin 0.9 Direct Bilirubin 0.2 Indirect Bilirubin 0.7 AST 42 H ALT 53 Alkaline Phosphatase 84 Total Creatine Kinase CK-MB (CK-2) Troponin I B-Natriuretic Peptide 24 Total Protein 7.0 Albumin 2.8 L Lipase 184 07/29/18 07/29/18 07/30/18 19:58 21:11 01:50 CBC w Diff WBC RBC Hgb Hct MCV MCH MCHC RDW Plt Count MPV Neut % (Auto) Lymph % (Auto) [place] % (Auto) Eos % (Auto) Baso % (Auto) Neut # (Auto) Lymph # (Auto) [place] # (Auto) Eos # (Auto) Baso # (Auto) WBC Differential Diff Scan Differential Comment Platelet Estimate Platelet Morphology RBC Morphology PT INR APTT Sodium Potassium Chloride Carbon Dioxide Anion Gap BUN Creatinine Estimated GFR POC Glucose 198 H Random Glucose Calcium Total Bilirubin Direct Bilirubin Indirect Bilirubin AST ALT Alkaline Phosphatase Total Creatine Kinase CK-MB (CK-2) Troponin I Less than 0.02 L Less than 0.02 L B-Natriuretic Peptide Total Protein Albumin Lipase 02/01/18 02/01/18 02/01/18 05:40 05:40 07:48 CBC w Diff Auto diff final WBC 13.4 H RBC 4.29 Hgb 12.7 Hct 37.3 MCV 87.0 MCH 29.6 MCHC 34.0 RDW 13.6 Plt Count 276 MPV 7.6 Neut % (Auto) 71.1 H Lymph % (Auto) 22.3 [place] % (Auto) 5.6 Eos % (Auto) 0.5 Baso % (Auto) 0.5 Neut # (Auto) 9.5 H Lymph # (Auto) 3.0 [place] # (Auto) 0.7 Eos # (Auto) 0.1 Baso # (Auto) 0.1 WBC Differential . Diff Scan Differential Comment . Platelet Estimate Platelet Morphology RBC Morphology PT INR APTT Sodium 139 Potassium 3.6 Chloride 103 Carbon Dioxide 28.7 Anion Gap 7 BUN 13 Creatinine 0.79 Estimated GFR 77 L POC Glucose 261 H Random Glucose 351 H Calcium 8.7 D Total Bilirubin Direct Bilirubin Indirect Bilirubin AST ALT Alkaline Phosphatase Total Creatine Kinase CK-MB (CK-2) Troponin I B-Natriuretic Peptide Total Protein Albumin Lipase - Imaging Impressions Chest X-Ray 01/31/18 00:00 CONCLUSION: No acute cardiopulmonary disease. Abdomen/Pelvis CT 01/31/18 13:12 CONCLUSION: Essentially unremarkable study. Assessment and Plan - Assessment (1) Generalized edema Code(s): R60.1 - Generalized edema Status: Acute (2) Atypical chest pain Code(s): R07.89 - Other chest pain Status: Acute (3) Gastroparesis Code(s): K31.84 - Gastroparesis Status: Acute (4) GERD (gastroesophageal reflux disease) Code(s): K21.9 - Gastro-esophageal reflux disease without esophagitis Status: Acute (5) Hyperlipidemia Code(s): E78.5 - Hyperlipidemia, unspecified Status: Acute (6) Hypertension Code(s): I10 - Essential (primary) hypertension Status: Acute (7) Type 2 diabetes mellitus with diabetic neuropathy Code(s): E11.40 - Type 2 diabetes mellitus with diabetic neuropathy, unspecified Status: Acute (8) Anxiety Code(s): F41.9 - Anxiety disorder, unspecified Status: Acute - Plan I will continue her on Bumex 2 mg IV every 12 hours. Her atypical chest pain is felt to be musculoskeletal in origin. I did not prescribe an anti-inflammatory medication because of her chronic upper GI problems. She will continue SCDs for DVT prophylaxis. She has been continued on her regular home medications other than we have held her Humulin R and just covered her with a sliding scale insulin. I will have her increase her to a high NovoLog scale for glucose coverage. I will repeat a CBC and BMP tomorrow. Hopefully she will be able to be discharged tomorrow and most likely will have to go home on a higher dose of Bumex. I did discuss with her that she may need to talk with her wildlife ecology professor about decreasing her dose of budesonide and taping her off of it because of her significant increased weight gain since she has been on it.
--- NOTE | 2018-02-01 22:10 | ECG ---
Date Performed: 01/31/2018 Time Performed: 13:01:12 PTAGE: 52 years EKG: SINUS TACHYCARDIA ABNORMAL RHYTHM ECG PREVIOUS TRACING : 09/19/2017 23.22 Compared to previous tracing, sinus tachycardia is new DOCTOR: Chiki Roque Interpretating Date/Time 02/01/2018 22:09:31
[2018-02-02 00:42] VITALS: O2SAT 95
[2018-02-02 06:47] LABS: Baso # (Auto) 0.1 th/mm3 (0.0-0.2); Baso % (Auto) 0.8 % (0.0-2.0); Eos # (Auto) 0.2 th/mm3 (0.0-0.4); Eos % (Auto) 1.3 % (0.0-4.0); Hematocrit 38.8 % (35.0-46.0); Hemoglobin 12.9 gm/dL (11.6-15.3); Lymph % (Auto) 28.1 % (9.0-44.0); Mean Corpuscular HGB Conc 33.3 % (32.0-36.0); Mean Corpuscular Hemoglobin 28.5 pg (27.0-34.0); Mean Corpuscular Volume 85.6 fL (80.0-100.0); Mean Platelet Volume 7.7 fL (7.0-11.0); Mono # (Auto) 0.9 th/mm3 (0.0-0.9); Mono % (Auto) 6.3 % (0.0-8.0); Neut # (Auto) 9.1 th/mm3 (1.8-7.7); Neut % (Auto) 63.5 % (16.0-70.0); Platelet Count 273 th/mm3 (150-450); Red Blood Count 4.53 mil/mm3 (4.00-5.30); Red Cell Distribution Width 14.2 % (11.6-17.2); White Blood Count 14.3 th/mm3 (4.0-11.0)
[2018-02-02 06:53] LABS: Potassium 3.1 meq/L (3.5-5.1)
[2018-02-02 06:58] LABS: Calcium 8.9 mg/dL (8.5-10.1)
[2018-02-02 06:59] LABS: Carbon Dioxide 31.6 meq/L (21.0-32.0)
[2018-02-02] MEDS: Insulin NovoLOG Aspart Correctional Sugar Inj SQ SCH (07:56)
[2018-02-02] MEDS: Carvedilol 12.5 MG Tablet PO SCH (08:39)
[2018-02-02] MEDS: Lipase/Protease/Amylase 24/76/120 DR Capsule PO SCH (08:40)
[2018-02-02] MEDS: Duloxetine 60 MG DR Capsule PO SCH (08:40)
[2018-02-02] MEDS: Metoclopramide 10 MG Tablet PO SCH (08:40)
--- NOTE | 2018-02-02 08:48 | P.PN ---
Subjective Interval history: Her chest wall pain is better and her swelling is improved with Bumex IV. She has no vomiting but just occasional nausea which is not unusual for her with her gastroparesis. No other complaints. Physical Exam Vital signs: Vital Signs 02/01/18 11:55 02/01/18 12:00 02/01/18 16:00 Temperature 97.3 F L 97.8 F Pulse Rate 86 80 Respiratory Rate 18 20 18 Blood Pressure 123/60 113/60 Pulse Oximetry 96 95 02/01/18 18:27 02/01/18 19:15 02/01/18 19:57 Temperature 97.6 F Pulse Rate 83 Respiratory Rate 18 21 Blood Pressure 158/72 H Pulse Oximetry 93 L 94 L 02/02/18 00:40 02/02/18 04:00 Temperature 97.2 F L 97.6 F Pulse Rate 75 79 Respiratory Rate 21 20 Blood Pressure 130/60 133/68 Pulse Oximetry 95 95 Intake & Output 02/01/18 02/02/18 02/02/18 18:59 06:59 18:59 Intake Total 720 / 720 360 / 360 Output Total 3200 / 3200 Balance 720 / 720 -2840 / -2840 Intake: Oral 720 / 720 360 / 360 Output: Urine 3200 / 3200 Other: # Voids 5 Date of Last Bowel Movement 02/01/18 # Bowel Movements 1 Narrative: This is a pleasant obese white female in no distress. She has slight Cushingoid appearance due to her steroid use. HEENT: Pupils equal, EOMs intact, sclera nonicteric, mouth without lesions, TMs intact, nose without lesions Neck: No JVD, neck is supple, no carotid bruit Heart: Regular rate and rhythm without murmurs or gallops Lungs: Clear to auscultation Chest: She has less tenderness to palpation of her mid to upper chest in the sternal area Abdomen: Soft, nontender, no masses, no organomegaly Extremities: Her edema of the lower extremities below the knees is improved and now trace to 1+, pulses palpated, no calf tenderness Skin: Without lesions or rash Neuro: Alert, oriented, normal motor exam, sensation intact, cranial nerves intact Results - Labs CBC & Chem 7: 02/02/18 06:00 02/02/18 06:00 Laboratory Results - last 24 hr 02/01/18 02/01/18 02/01/18 11:42 17:11 21:38 CBC w Diff WBC RBC Hgb Hct MCV MCH MCHC RDW Plt Count MPV Neut % (Auto) Lymph % (Auto) [place] % (Auto) Eos % (Auto) Baso % (Auto) Neut # (Auto) Lymph # (Auto) [place] # (Auto) Eos # (Auto) Baso # (Auto) WBC Differential Differential Comment Sodium Potassium Chloride Carbon Dioxide Anion Gap BUN Creatinine Estimated GFR POC Glucose 186 H 79 309 H Random Glucose Calcium 02/02/18 02/02/18 02/02/18 06:00 06:00 07:33 CBC w Diff Auto diff final WBC 14.3 H RBC 4.53 Hgb 12.9 Hct 38.8 MCV 85.6 MCH 28.5 MCHC 33.3 RDW 14.2 Plt Count 273 MPV 7.7 Neut % (Auto) 63.5 Lymph % (Auto) 28.1 [place] % (Auto) 6.3 Eos % (Auto) 1.3 Baso % (Auto) 0.8 Neut # (Auto) 9.1 H Lymph # (Auto) 4.0 [place] # (Auto) 0.9 Eos # (Auto) 0.2 Baso # (Auto) 0.1 WBC Differential . Differential Comment . Sodium 141 Potassium 3.1 L Chloride 101 Carbon Dioxide 31.6 Anion Gap 8 BUN 12 Creatinine 0.70 Estimated GFR 88 L POC Glucose 238 H Random Glucose 217 H D Calcium 8.9 Laboratory Tests 01/31/18 01/31/18 01/31/18 13:20 13:20 13:20 CBC w Diff Slide review pending WBC 15.5 H RBC 4.55 Hgb 13.4 Hct 39.7 MCV 87.3 MCH 29.3 MCHC 33.6 RDW 13.7 Plt Count 302 MPV 7.6 Neut % (Auto) 78.5 H Lymph % (Auto) 11.6 [place] % (Auto) 4.8 Eos % (Auto) 0.5 Baso % (Auto) 4.6 H Neut # (Auto) 12.2 H Lymph # (Auto) 1.8 [place] # (Auto) 0.7 Eos # (Auto) 0.1 Baso # (Auto) 0.7 H WBC Differential . Diff Scan Auto diff confirmed Differential Comment . Platelet Estimate Normal Platelet Morphology Normal RBC Morphology Normal PT 9.4 L INR 0.9 APTT 19.1 L Sodium 139 Potassium 4.1 Chloride 104 Carbon Dioxide 25.6 Anion Gap 9 BUN 9 Creatinine 0.90 Estimated GFR 66 L POC Glucose Random Glucose 333 H Calcium 7.9 L Total Bilirubin Direct Bilirubin Indirect Bilirubin AST ALT Alkaline Phosphatase Total Creatine Kinase 109 CK-MB (CK-2) 2.1 Troponin I 0.02 B-Natriuretic Peptide Total Protein Albumin Lipase 01/31/18 01/31/18 01/31/18 13:20 13:35 13:35 CBC w Diff WBC RBC Hgb Hct MCV MCH MCHC RDW Plt Count MPV Neut % (Auto) Lymph % (Auto) [place] % (Auto) Eos % (Auto) Baso % (Auto) Neut # (Auto) Lymph # (Auto) [place] # (Auto) Eos # (Auto) Baso # (Auto) WBC Differential Diff Scan Differential Comment Platelet Estimate Platelet Morphology RBC Morphology PT INR APTT Sodium Potassium Chloride Carbon Dioxide Anion Gap BUN Creatinine Estimated GFR POC Glucose Random Glucose Calcium Total Bilirubin 0.9 Direct Bilirubin 0.2 Indirect Bilirubin 0.7 AST 42 H ALT 53 Alkaline Phosphatase 84 Total Creatine Kinase CK-MB (CK-2) Troponin I B-Natriuretic Peptide 24 Total Protein 7.0 Albumin 2.8 L Lipase 184 01/31/18 01/31/18 02/01/18 19:58 21:11 01:50 CBC w Diff WBC RBC Hgb Hct MCV MCH MCHC RDW Plt Count MPV Neut % (Auto) Lymph % (Auto) [place] % (Auto) Eos % (Auto) Baso % (Auto) Neut # (Auto) Lymph # (Auto) [place] # (Auto) Eos # (Auto) Baso # (Auto) WBC Differential Diff Scan Differential Comment Platelet Estimate Platelet Morphology RBC Morphology PT INR APTT Sodium Potassium Chloride Carbon Dioxide Anion Gap BUN Creatinine Estimated GFR POC Glucose 198 H Random Glucose Calcium Total Bilirubin Direct Bilirubin Indirect Bilirubin AST ALT Alkaline Phosphatase Total Creatine Kinase CK-MB (CK-2) Troponin I Less than 0.02 L Less than 0.02 L B-Natriuretic Peptide Total Protein Albumin Lipase 02/01/18 02/01/18 02/01/18 05:40 05:40 07:48 CBC w Diff Auto diff final WBC 13.4 H RBC 4.29 Hgb 12.7 Hct 37.3 MCV 87.0 MCH 29.6 MCHC 34.0 RDW 13.6 Plt Count 276 MPV 7.6 Neut % (Auto) 71.1 H Lymph % (Auto) 22.3 [place] % (Auto) 5.6 Eos % (Auto) 0.5 Baso % (Auto) 0.5 Neut # (Auto) 9.5 H Lymph # (Auto) 3.0 [place] # (Auto) 0.7 Eos # (Auto) 0.1 Baso # (Auto) 0.1 WBC Differential . Diff Scan Differential Comment . Platelet Estimate Platelet Morphology RBC Morphology PT INR APTT Sodium 139 Potassium 3.6 Chloride 103 Carbon Dioxide 28.7 Anion Gap 7 BUN 13 Creatinine 0.79 Estimated GFR 77 L POC Glucose 261 H Random Glucose 351 H Calcium 8.7 D Total Bilirubin Direct Bilirubin Indirect Bilirubin AST ALT Alkaline Phosphatase Total Creatine Kinase CK-MB (CK-2) Troponin I B-Natriuretic Peptide Total Protein Albumin Lipase 02/01/18 02/01/18 02/01/18 11:42 17:11 21:38 CBC w Diff WBC RBC Hgb Hct MCV MCH MCHC RDW Plt Count MPV Neut % (Auto) Lymph % (Auto) [place] % (Auto) Eos % (Auto) Baso % (Auto) Neut # (Auto) Lymph # (Auto) [place] # (Auto) Eos # (Auto) Baso # (Auto) WBC Differential Diff Scan Differential Comment Platelet Estimate Platelet Morphology RBC Morphology PT INR APTT Sodium Potassium Chloride Carbon Dioxide Anion Gap BUN Creatinine Estimated GFR POC Glucose 186 H 79 309 H Random Glucose Calcium Total Bilirubin Direct Bilirubin Indirect Bilirubin AST ALT Alkaline Phosphatase Total Creatine Kinase CK-MB (CK-2) Troponin I B-Natriuretic Peptide Total Protein Albumin Lipase 02/02/18 02/02/18 02/02/18 06:00 06:00 07:33 CBC w Diff Auto diff final WBC 14.3 H RBC 4.53 Hgb 12.9 Hct 38.8 MCV 85.6 MCH 28.5 MCHC 33.3 RDW 14.2 Plt Count 273 MPV 7.7 Neut % (Auto) 63.5 Lymph % (Auto) 28.1 [place] % (Auto) 6.3 Eos % (Auto) 1.3 Baso % (Auto) 0.8 Neut # (Auto) 9.1 H Lymph # (Auto) 4.0 [place] # (Auto) 0.9 Eos # (Auto) 0.2 Baso # (Auto) 0.1 WBC Differential . Diff Scan Differential Comment . Platelet Estimate Platelet Morphology RBC Morphology PT INR APTT Sodium 141 Potassium 3.1 L Chloride 101 Carbon Dioxide 31.6 Anion Gap 8 BUN 12 Creatinine 0.70 Estimated GFR 88 L POC Glucose 238 H Random Glucose 217 H D Calcium 8.9 Total Bilirubin Direct Bilirubin Indirect Bilirubin AST ALT Alkaline Phosphatase Total Creatine Kinase CK-MB (CK-2) Troponin I B-Natriuretic Peptide Total Protein Albumin Lipase - Imaging Chest X-Ray 01/31/18 00:00 CONCLUSION: No acute cardiopulmonary disease. Abdomen/Pelvis CT 01/31/18 13:12 CONCLUSION: Essentially unremarkable study. Assessment and Plan - Assessment (1) Generalized edema Code(s): R60.1 - Generalized edema Status: Acute Plan: Her edema is much better today. (2) Atypical chest pain Code(s): R07.89 - Other chest pain Status: Acute Plan: Her atypical chest pain is felt to be secondary to musculoskeletal chest wall pain and it has improved also. (3) Gastroparesis Code(s): K31.84 - Gastroparesis Status: Acute (4) GERD (gastroesophageal reflux disease) Code(s): K21.9 - Gastro-esophageal reflux disease without esophagitis Status: Acute (5) Hyperlipidemia Code(s): E78.5 - Hyperlipidemia, unspecified Status: Acute (6) Hypertension Code(s): I10 - Essential (primary) hypertension Status: Acute (7) Type 2 diabetes mellitus with diabetic neuropathy Code(s): E11.40 - Type 2 diabetes mellitus with diabetic neuropathy, unspecified Status: Acute (8) Anxiety Code(s): F41.9 - Anxiety disorder, unspecified Status: Acute (9) Hypokalemia Code(s): E87.6 - Hypokalemia Status: Acute Plan: Her potassium is just a little low today likely secondary to her diuretic therapy. I ordered 30meq of KCL today which she has received and I will discharge her home on KCL 20meq twice a day with a outpatient BMP ordered for 02-04-18. - Plan I will discharge her today on Bumex 2mg twice a day (she was on 2mg daily at home). I think her generalized edema is likely secondary to her steroid use which has also cause her a lot of weight gain in the last 2 months. I recommended she discuss with Dr Luciano (GI) about tapering her off of this to help with her swelling and weight gain. Her atypical chest pain is felt to be musculoskeletal in origin and is improved. I did not prescribe an anti-inflammatory medication because of her chronic upper GI problems. She will continue her home medications other than her Bumex dose was increased as mentioned above. She will followup with her PCP (Dr Cuellar) in 2 days. Her potassium was 3.1 this morning so KCL 30meq was given and I will send her home on KCL 20meq twice a day and a repeat BMP was ordered for 02-04-18. Her WBC count has just been mildly increased during her hospital stay but I think this is likely from steroid effect and not infection since she has no symptoms suggestive of an underlying infection.
[2018-02-02 09:03] VITALS: BP 143/68; PULSE 93; RESP 16; TEMP 97
== END 2018-02-02 09:52 | disposition home or self-care (01) ==
LOC: PH3 12:47 → PHEDH 12:47 → PHED 12:47 → PH3 16:50
PROVIDERS: ADMIT Family Medicine; ATTEND Family Medicine

== ENCOUNTER 2018-02-16 10:32 | Inpatient (IN) ==
[2018-02-16] MEDS ORDERED: Sod Chloride 0.9% Inj 1,000 ML IV.SIG ONE (11:31)
[2018-02-16] MEDS ORDERED: Dextrose 50% in Water 50 ML Vial IV.PUSH PRN ×2 (11:31→15:02)
--- NOTE | 2018-02-16 11:34 | ED ---
HPI General Chief complaint: Recheck/Abnormal Lab/Rx Stated complaint: possible high blood pressure Time Seen by Provider: 02/16/18 11:09 History of Present Illness HPI narrative: 52-year-old female with a history of diabetes, anxiety, GERD, hyperlipidemia, hypertension, gastroparesis presents to the emergency department for evaluation of hyperglycemia. Patient states that for the past several weeks her glucose has been hard to control. States that over the past 5 days specifically her blood sugar has been in the 500s. States that she was seen yesterday by her PCP and diagnosed with a UTI and started on amoxicillin. States that her production line mechanic saw her today and is concerned that she may have urosepsis and sent her here for further evaluation and treatment. States that she is currently taking 70 units of Humulin 3 times daily before meals. This has been increased from 55 units 2 weeks ago by her production line mechanic due to poor control. She states that she has not changed her diet recently. States that she was recently admitted to our facility for complaints of swelling "all over," states that this has improved but she is still having swelling and is taking the Bumex as prescribed. She complains of nausea and vomiting which has worsened over the past 3 weeks, reports due to her gastroparesis. She does have urinary frequency and urgency which began yesterday. She denies fever, chills, chest pain, shortness of breath, cough or cold symptoms, lightheadedness , dizziness, hematuria, flank pain. No other complaints or concerns. Related Data Home Medications Medication Instructions Recorded Confirmed buspirone 5 mg PO TID 01/31/18 02/16/18 carvedilol 12.5 mg PO BID 01/31/18 02/16/18 dicyclomine 20 mg PO TID 01/31/18 02/16/18 erythromycin 250 mg PO TID 01/31/18 02/16/18 [id number] [Creon] 1 tab PO TID 01/31/18 02/16/18 pantoprazole 40 mg PO BID 01/31/18 02/16/18 pregabalin [Lyrica] 75 mg PO TID 01/31/18 02/16/18 tramadol 50 mg PO Q6HR PRN 01/31/18 02/16/18 duloxetine [Cymbalta] 60 mg PO HS 02/16/18 02/16/18 hyoscyamine sulfate 0.125 mg PO TID 02/16/18 02/16/18 insulin regular hum U-500 conc 55 unit SUB-Q TIDWM 02/16/18 02/16/18 [Humulin R U-500 (Conc) Daniloikpen] metoclopramide HCl 5 mg PO TID 02/16/18 02/16/18 promethazine 12.5 mg PO Q6H PRN 02/16/18 02/16/18 rosuvastatin 20 mg PO HS 02/16/18 02/16/18 Allergies Allergy/AdvReac Type Severity Reaction Status Date / Time gabapentin Allergy Severe AMNESIA Verified 01/31/18 12:54 Sulfa (Sulfonamide Allergy Severe BREATHING Verified 01/31/18 12:54 Antibiotics) DIFFICULTIES Review of Systems ROS: all other systems reviewed are negative PMFSH Social History Social History Substance History: No History of Abuse Second Hand Smoke Exposure: No Smoking Status: Never smoker How Often Do You Have a Drink Containing Alcohol: Never Recent Travel in [facility] within the Last 8 Weeks: No Recent Out of Country Travel within the Last 8 Weeks: No Immunization History Tetanus Immunization: <5 Years Hx Influenza Vaccine This Season: Yes Exam Narrative Exam Narrative: GENERAL: Well-nourished and well-developed pleasant patient in no acute distress who is nontoxic appearing. SKIN: Warm and dry without any obvious rashes or lesions. HEAD: Normocephalic and atraumatic. EYES: No injection, drainage, or hyphema noted. PERRLA. EOMI. ENT: No nasal drainage noted. Oropharynx is clear and the TMs are normal with good landmarks. NECK: Supple and the trachea is midline. CARDIOVASCULAR: Regular rate and rhythm. RESPIRATORY: Breath sounds are equal bilaterally with no accessory muscle use, wheezing, rhonchi, or crackles. GASTROINTESTINAL: Generalized abdominal tenderness to palpation. No rebound tenderness or guarding. Abdomen is soft and nondistended. MUSCULOSKELETAL: Pitting edema noted to bilateral lower legs and feet. No obvious deformities, cyanosis, or ecchymosis is present throughout the upper and lower extremities. Patient has full range of motion without any signs of neurovascular compromise. Distal pulses are 2+ throughout. NEUROLOGICAL: Awake, alert, and oriented. Normal speech and gait. Cranial nerves are grossly intact. Course Initial Documented Vital Signs Temperature 98.1 F 02/16/18 10:35 Pulse Rate 100 H 02/16/18 10:35 Respiratory Rate 20 02/16/18 10:35 Blood Pressure 157/78 H 02/16/18 10:35 Pulse Oximetry 94 L 02/16/18 10:35 Last Documented Vital Signs Temperature 98.1 F 02/16/18 10:35 Pulse Rate 98 H 02/16/18 10:41 Respiratory Rate 18 02/16/18 10:41 Blood Pressure 119/67 02/16/18 10:41 Pulse Oximetry 98 02/16/18 11:52 Medical Decision Making MDM Narrative Medical decision making narrative: 52-year-old female presents to the emergency department for evaluation of hyperglycemia and UTI. Patient is afebrile, vital signs are stable. IV access is obtained, labs have been drawn and sent. Patient is placed on cardiac telemetry and pulse oximetry monitoring. Patient is administered IV fluids and 10 units of regular insulin SQ. Labs reveal hyperglycemia, hypokalemia, UTI with ketonuria, elevated lactic acid. Patient administered another 500 cc bolus of fluids, Zofran 4 mg IV for nausea, oral potassium 20 meq, and rocephin 1 g IV. The patient will be admitted for further management of these conditions. I spoke with Dr. Sapp who agrees to admit the patient to his service. Differential Diagnosis Differential Diagnosis: Hyperglycemia versus UTI versus urosepsis versus DKA versus electrolyte abnormality Lab Data Result diagrams: 02/16/18 13:14 02/16/18 11:40 Lab Results 02/16/18 02/16/18 02/16/18 Range/Units 11:07 11:40 11:40 WBC (4.0-11.0) th/mm3 RBC (4.00-5.30) mil/mm3 Hgb (11.6-15.3) gm/dL Hct (35.0-46.0) % MCV (80.0-100.0) fL MCH (27.0-34.0) pg MCHC (32.0-36.0) % RDW (11.6-17.2) % Plt Count (150-450) th/mm3 MPV (7.0-11.0) fL Neut % (Auto) (16.0-70.0) % Lymph % (Auto) (9.0-44.0) % Hubbard % (Auto) (0.0-8.0) % Eos % (Auto) (0.0-4.0) % Baso % (Auto) (0.0-2.0) % Neut # (Auto) (1.8-7.7) th/mm3 Lymph # (Auto) (1.0-4.8) th/mm3 Hubbard # (Auto) (0.0-0.9) th/mm3 Eos # (Auto) (0.0-0.4) th/mm3 Baso # (Auto) (0.0-0.2) th/mm3 WBC Differential Differential Comment Sodium 134 L (136-145) meq/L Potassium 3.2 L (3.5-5.1) meq/L Chloride 94 L (98-107) meq/L Carbon Dioxide 27.9 (21.0-32.0) meq/L Anion Gap 12 (5-15) meq/L BUN 14 (7-18) mg/dL Creatinine 1.05 H (0.50-1.00) mg/dL Estimated GFR 55 L (>89) mL/min POC Glucose 424 H (68-110) mg/dl Random Glucose 438 H (74-106) mg/dL Lactic Acid 2.8 H (0.4-2.0) mmol/L Calcium 9.1 (8.5-10.1) mg/dL Total Bilirubin 1.1 H (0.2-1.0) mg/dL AST 22 (15-37) U/L ALT 37 (10-53) U/L Alkaline Phosphatase 93 (45-117) U/L Total Protein 7.2 (6.4-8.2) g/dL Albumin 3.3 L (3.4-5.0) g/dL Lipase 161 (73-393) U/L Beta-Hydroxybutyric Acd 0.86 H (0.00-0.39) mmol/L Urine Color (Yellw/Straw) Urine Clarity (Clear) Urine pH (5.0-8.5) Ur Specific [place] (1.002-1.035) Urine Protein (Neg-Trace) mg/dL Urine Glucose (UA) (Negative) mg/dL Urine Ketones (Negative) mg/dL Urine Occult Blood (Negative) Urine Nitrate (Negative) Urine Bilirubin (Negative) Urine Urobilinogen (Less than 2) mg/dL Ur Leukocyte Esterase (Negative) Urine RBC (0-3) /hpf Urine WBC (0-5) /hpf Ur Squamous Epith Cells (0-5) /hpf Urine Bacteria (None) /hpf Urine Mucus (Occasional) /lpf Micro UA Comment Urine Culture Comments 02/16/18 02/16/18 02/16/18 Range/Units 11:40 13:14 13:14 WBC 10.9 (4.0-11.0) th/mm3 RBC 4.60 (4.00-5.30) mil/mm3 Hgb 13.2 (11.6-15.3) gm/dL Hct 38.9 (35.0-46.0) % MCV 84.7 (80.0-100.0) fL MCH 28.7 (27.0-34.0) pg MCHC 33.9 (32.0-36.0) % RDW 14.0 (11.6-17.2) % Plt Count 296 (150-450) th/mm3 MPV 7.7 (7.0-11.0) fL Neut % (Auto) 63.3 (16.0-70.0) % Lymph % (Auto) 28.0 (9.0-44.0) % Hubbard % (Auto) 6.9 (0.0-8.0) % Eos % (Auto) 1.2 (0.0-4.0) % Baso % (Auto) 0.6 (0.0-2.0) % Neut # (Auto) 6.9 (1.8-7.7) th/mm3 Lymph # (Auto) 3.0 (1.0-4.8) th/mm3 Hubbard # (Auto) 0.8 (0.0-0.9) th/mm3 Eos # (Auto) 0.1 (0.0-0.4) th/mm3 Baso # (Auto) 0.1 (0.0-0.2) th/mm3 WBC Differential . Differential Comment Auto diff final Sodium (136-145) meq/L Potassium (3.5-5.1) meq/L Chloride (98-107) meq/L Carbon Dioxide (21.0-32.0) meq/L Anion Gap (5-15) meq/L BUN (7-18) mg/dL Creatinine (0.50-1.00) mg/dL Estimated GFR (>89) mL/min POC Glucose 360 H (68-110) mg/dl Random Glucose (74-106) mg/dL Lactic Acid (0.4-2.0) mmol/L Calcium (8.5-10.1) mg/dL Total Bilirubin (0.2-1.0) mg/dL AST (15-37) U/L ALT (10-53) U/L Alkaline Phosphatase (45-117) U/L Total Protein (6.4-8.2) g/dL Albumin (3.4-5.0) g/dL Lipase (73-393) U/L Beta-Hydroxybutyric Acd (0.00-0.39) mmol/L Urine Color Yellow (Yellw/Straw) Urine Clarity Cloudy H (Clear) Urine pH 6.0 (5.0-8.5) Ur Specific [place] 1.009 (1.002-1.035) Urine Protein Negative (Neg-Trace) mg/dL Urine Glucose (UA) 500 or greater (Negative) mg/dL Urine Ketones Trace H (Negative) mg/dL Urine Occult Blood Negative (Negative) Urine Nitrate Negative (Negative) Urine Bilirubin Negative (Negative) Urine Urobilinogen Less than 2 (Less than 2) mg/dL Ur Leukocyte Esterase Trace H (Negative) Urine RBC Less than 1 (0-3) /hpf Urine WBC 8 H (0-5) /hpf Ur Squamous Epith Cells 5 (0-5) /hpf Urine Bacteria Many H (None) /hpf Urine Mucus Few H (Occasional) /lpf Micro UA Comment Culture indicated Urine Culture Comments Culture indicated Imaging Data Radiologist's impression: Chest X-Ray 02/16/18 11:31 CONCLUSION: No active disease. Discharge Plan Discharge Disposition Patient Disposition: 30 Still Patient Discharge Condition Condition: Stable Discharge Details Diagnosis: Hyperglycemia, UTI (urinary tract infection) Physicians Team ED Provider: Savanna Mckinley ED Midlevel Provider: Silvia Rogers Primary Care Provider: Manisha Estrada Rxs /Orders / Referrals /Forms Prescriptions: No Action pantoprazole 40 mg Tablet,Delayed Release (Dr/Ec) 40 mg PO BID RF: 0 pregabalin [Lyrica] 75 mg Capsule 75 mg PO TID RF: 0 buspirone 5 mg Tablet 5 mg PO TID RF: 0 carvedilol 12.5 mg Tablet 12.5 mg PO BID RF: 0 [id number]-guatdiw [Creon] 24,000-76,000 -120,000 unit Capsule,Delayed Release(Dr/Ec) 1 tab PO TID RF: 0 dicyclomine 20 mg Tablet 20 mg PO TID RF: 0 erythromycin 250 mg Tablet 250 mg PO TID RF: 0 tramadol 50 mg Tablet 50 mg PO Q6HR PRN (Reason: Pain) RF: 0 promethazine 12.5 mg Tablet 12.5 mg PO Q6H PRN (Reason: Nausea) RF: 0 metoclopramide HCl 5 mg Tablet 5 mg PO TID RF: 0 hyoscyamine sulfate 0.125 mg Tablet 0.125 mg PO TID RF: 0 rosuvastatin 20 mg Tablet 20 mg PO HS RF: 0 duloxetine [Cymbalta] 60 mg Capsule,Delayed Release(Dr/Ec) 60 mg PO HS RF: 0 insulin regular hum U-500 conc [Humulin R U-500 (Conc) Daniloikpen] 500 unit/mL ( 3 mL) Insulin Pen 55 unit SUB-Q TIDWM RF: 0 Status ED Status: With Doctor
--- NOTE | 2018-02-16 12:18 | XR ---
EXAM DATE: 02/16/2018 12:11 PM EDT AGE/SEX: 52 years / Female INDICATIONS: Shortness of breath. CLINICAL DATA: This is the patient's initial encounter. Patient reports that signs and symptoms have been present for 1 day and indicates a pain score of 0/10. MEDICAL/SURGICAL HISTORY: Diabetes mellitus type II. Hypertension. Gastroparesis. None. COMPARISON: [facility], CHEST 1V SINGLE AP, 01/31/2018. . FINDINGS: A single AP view of the chest demonstrates the lungs to be symmetrically aerated without evidence of mass, infiltrate or effusion. The cardiomediastinal contours are unremarkable. Osseous structures a re intact. CONCLUSION: No active disease. Electronically signed by: Germain Mcelroy MD 02/16/2018 12:17 PM EDT
[2018-02-16 12:25] LABS: Bacteria,Urine Many /hpf; Bilirubin,Urine Negative (Negative); Clarity,Urine Cloudy (Clear); Color,Urine Yellow (Yellw/Straw); Glucose,Urine (UA) 500 or Greater mg/dL (Negative); Leukocyte Esterase,Urine Trace (Negative); Mucus,Urine Few /lpf (Occasional); Nitrite,Urine Negative (Negative); Specific Gravity,Urine 1.009 (1.002-1.035); Squamous Epithelial Cell,Urine 5 /hpf (0-5)
[2018-02-16 12:46] LABS: Alanine Aminotransferase 37 U/L (10-53); Albumin 3.3 g/dL (3.4-5.0); Alkaline Phosphatase 93 U/L (45-117); Anion Gap 12 meq/L (5-15); Aspartate Aminotransferase 22 U/L (15-37); Beta Hydroxybutyric Acid 0.86 mmol/L (0.00-0.39); Blood Urea Nitrogen 14 mg/dL (7-18); Calcium 9.1 mg/dL (8.5-10.1); Carbon Dioxide 27.9 meq/L (21.0-32.0); Chloride 94 meq/L (98-107); Glomerular Filtration Rate 55 mL/min (>89); Glucose,Random 438 mg/dL (74-106); Lipase 161 U/L (73-393); Potassium 3.2 meq/L (3.5-5.1); Sodium 134 meq/L (136-145); Total Protein 7.2 g/dL (6.4-8.2)
[2018-02-16] MEDS ORDERED: Sodium Chlor 0.9% Inj 500 ML IV.SIG ONE (12:59)
[2018-02-16 14:07] LABS: Baso # (Auto) 0.1 th/mm3 (0.0-0.2); Baso % (Auto) 0.6 % (0.0-2.0); Eos # (Auto) 0.1 th/mm3 (0.0-0.4); Eos % (Auto) 1.2 % (0.0-4.0); Hematocrit 38.9 % (35.0-46.0); Hemoglobin 13.2 gm/dL (11.6-15.3); Mean Corpuscular HGB Conc 33.9 % (32.0-36.0); Mean Corpuscular Hemoglobin 28.7 pg (27.0-34.0); Mean Corpuscular Volume 84.7 fL (80.0-100.0); Mean Platelet Volume 7.7 fL (7.0-11.0); Mono # (Auto) 0.8 th/mm3 (0.0-0.9); Mono % (Auto) 6.9 % (0.0-8.0); Neut # (Auto) 6.9 th/mm3 (1.8-7.7); Neut % (Auto) 63.3 % (16.0-70.0); Platelet Count 296 th/mm3 (150-450); White Blood Count 10.9 th/mm3 (4.0-11.0)
--- NOTE | 2018-02-16 15:41 | P.HP ---
<Lorie Sesay - Last Filed: 02/16/18 16:58> History of Present Illness Primary Care Physician: Manisha Estrada MD Chief Complaint: elevated blood glucose History of Present Illness: This is a 52 year old female patient with a past medical history which includes DM uncontrolled, gastroparesis, peripheral neuropathy, depression and HTN. Patient reports that she was sent to the ER by her ceramics instructor Dr. Bustamante due to uncontrolled DM with elevated blood glucose and concerns for urosepsis. Patient reports that for the past several weeks her glucose has been hard to control. States that over the past 5 days specifically her blood sugar has been in the 500s. On admission blood glucose was 424. Patient reports that she has been compliant with her insulin regiment (insulin regular Humulin U 500 70 Units TID and that there have been no changes in her diet. Patient also reports that yesterday she was seen by her PCP and diagnosed with a UTI and started on amoxicillin. Patient endorses increased urinary frequency and urgency x 1 day. Patient also reports that she frequently has nausea and vomiting due to her gastroparesis but feels this has been worse over the past 3 weeks. Patient denies shortness of breath, chest pain, fever, chills, cough, cold symptoms, lightheadedness, dizziness, hematuria or flank pain. Past Medical History gastroparesis diabetes peripheral neuropathy depression htn Past Surgical History LEEP x2 Laparoscopy with lysis of adhesions on two prior occasions Laparoscopic cholecystectomy EGD/colonoscopy (04/14) with Dr. Luciano --> gastritis, esophagitis (?julia esophagitis), hiatal hernia, poor prep, small internal hemorrhoids. Pathology consistent with chemical gastropathy, moderate to severe acute suppurative esophagitis (fungal stain is negative and viral inclusions are not observed), biopsy from descending colon with features suggestive of collagenous colitis. 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 Pt underwent division of median arcuate ligament today with Dr. Soares and Dr. 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 No upper abdominal adhesions. EGD (04/28/17) performed by Dr. Leavitt- BOTOX injection 100 IU. Injected into pylorus NG tube placed by anesthesia. There was fair amount of residual food in stomach. Family History father has COPD Social History Denies etoh use Denies tobacco use Review of Systems All other systems reviewed negative except as stated in HPI PMFSH - History History Provided By: Patient - Medical History Medical History: Medical History (Last Reviewed 01/31/18 @ 13:45 by Purvi Alvarado MD) Chronic abdominal pain Diabetes Edema Gastroparesis Hypertension - Surgical History Surgical History: Surgical History (Last Reviewed 01/31/18 @ 13:45 by Purvi Alvarado MD) History of delivery History of cholecystectomy - Tobacco History Second Hand Smoke Exposure: No Tobacco Use In Past 30 Days: No Smoking Status: Never smoker - Alcohol History How Often Do You Have a Drink Containing Alcohol: Never - Substance Use History Substance History: No History of Abuse - Travel History Recent Travel in the [place] Within the Last 8 Weeks: No Recent Travel Out of the Country Within the Last 8 Weeks: No - Immunization History Tetanus Immunization: <5 Years Hx Influenza Vaccine This Season: Yes Medications and Allergies Allergies Allergy/AdvReac Type Severity Reaction Status Date / Time gabapentin Allergy Severe AMNESIA Verified 01/31/18 12:54 Sulfa (Sulfonamide Allergy Severe BREATHING Verified 01/31/18 12:54 Antibiotics) DIFFICULTIES Home Medications Medication Instructions Recorded Confirmed Type buspirone 5 mg PO TID 01/31/18 02/16/18 History carvedilol 6.25 mg PO BID 01/31/18 02/16/18 History dicyclomine 20 mg PO TID 01/31/18 02/16/18 History erythromycin 250 mg PO TID 01/31/18 02/16/18 History [id number]-[id number]-[id number] [Creon] 1 tab PO TID 01/31/18 02/16/18 History pantoprazole 40 mg PO BID 01/31/18 02/16/18 History pregabalin [Lyrica] 75 mg PO TID 01/31/18 02/16/18 History tramadol 50 mg PO Q6HR PRN 01/31/18 02/16/18 History duloxetine [Cymbalta] 60 mg PO HS 02/16/18 02/16/18 History hyoscyamine sulfate 0.125 mg PO TID 02/16/18 02/16/18 History insulin regular hum U-500 conc 55 unit SUB-Q TIDWM 02/16/18 02/16/18 History [Humulin R U-500 (Conc) Kwikpen] metoclopramide HCl 5 mg PO TID 02/16/18 02/16/18 History promethazine 12.5 mg PO Q6H PRN 02/16/18 02/16/18 History rosuvastatin 20 mg PO HS 02/16/18 02/16/18 History Active Medications: Active Medications Al Hydroxide/Mg Hydroxide (Milk Of Magnsheila Liq) 30 ml PO Q12H PRN PRN Reason: Mild Constipation Dextrose (D50w Vial) 50 ml IV.PUSH UNSCH PRN PRN Reason: PER HYPOGLYCEMIA PROTOCOL Dextrose (D50w Vial) 50 ml IV.PUSH UNSCH PRN PRN Reason: PER HYPOGLYCEMIA PROTOCOL Enoxaparin Sodium (Lovenox Inj) 40 mg SQ Q24H HECTOR Glucagon (Glucagon Inj) 1 mg OTHER PRN PRN PRN Reason: for Hypoglycemia Protocol Sodium Chloride (Ns Inj) 1,000 mls @ 42 mls/hr IV.CONT .[id number] HECTOR Insulin Detemir (Levemir Inj) 20 unit SQ BID HECTOR Insulin Human Regular (Novolin R Correctional Sugar Inj) 0 units SQ ACHS HECTOR; Protocol Senna/Docusate Sodium (Mariel-Colace) 1 tab PO BID HECTOR Sodium Chloride (Ns Flush) 2 ml IV.FLUSH PRN PRN PRN Reason: FLUSH AFTER USING IV ACCESS Exam Vital signs: Vital Signs 02/16/18 10:35 02/16/18 10:41 02/16/18 11:52 Temperature 98.1 F Pulse Rate 100 H 98 H Respiratory Rate 20 18 Blood Pressure 157/78 H 119/67 Pulse Oximetry 94 L 95 98 02/16/18 15:28 Temperature Pulse Rate 68 Respiratory Rate 18 Blood Pressure 138/86 Pulse Oximetry 18 L Intake & Output 02/15/18 02/16/18 02/16/18 18:59 06:59 18:59 Weight 114.759 kg Narrative: GENERAL: This is a morbidly obese 52 year female patient, well-developed patient , in no apparent distress. CARDIOVASCULAR: Regular rate and rhythm RESPIRATORY: Difficult to auscultate due to body habitus. Clear to auscultation. Breath sounds equal bilaterally. GASTROINTESTINAL: Abdomen soft, non-tender, nondistended. Normal active bowel sounds MUSCULOSKELETAL: Extremities without clubbing, cyanosis, or edema. NEURO: Alert & Oriented x4 to person, place, time, situation. Moves all ext x4 Results - Labs CBC & Chem 7: 02/16/18 13:14 02/16/18 11:40 Labs: Laboratory Results - last 24 hr 02/16/18 02/16/18 02/16/18 11:07 11:40 11:40 WBC RBC Hgb Hct MCV MCH MCHC RDW Plt Count MPV Neut % (Auto) Lymph % (Auto) [place] % (Auto) Eos % (Auto) Baso % (Auto) Neut # (Auto) Lymph # (Auto) [place] # (Auto) Eos # (Auto) Baso # (Auto) WBC Differential Differential Comment Sodium 134 L Potassium 3.2 L Chloride 94 L Carbon Dioxide 27.9 Anion Gap 12 BUN 14 Creatinine 1.05 H Estimated GFR 55 L POC Glucose 424 H Random Glucose 438 H Lactic Acid 2.8 H Calcium 9.1 Total Bilirubin 1.1 H AST 22 ALT 37 Alkaline Phosphatase 93 Total Protein 7.2 Albumin 3.3 L Lipase 161 Beta-Hydroxybutyric Acd 0.86 H Urine Color Urine Clarity Urine pH Ur Specific [place] Urine Protein Urine Glucose (UA) Urine Ketones Urine Occult Blood Urine Nitrate Urine Bilirubin Urine Urobilinogen Ur Leukocyte Esterase Urine RBC Urine WBC Ur Squamous Epith Cells Urine Bacteria Urine Mucus Micro UA Comment Urine Culture Comments 02/16/18 02/16/18 02/16/18 11:40 13:14 13:14 WBC 10.9 RBC 4.60 Hgb 13.2 Hct 38.9 MCV 84.7 MCH 28.7 MCHC 33.9 RDW 14.0 Plt Count 296 MPV 7.7 Neut % (Auto) 63.3 Lymph % (Auto) 28.0 [place] % (Auto) 6.9 Eos % (Auto) 1.2 Baso % (Auto) 0.6 Neut # (Auto) 6.9 Lymph # (Auto) 3.0 [place] # (Auto) 0.8 Eos # (Auto) 0.1 Baso # (Auto) 0.1 WBC Differential . Differential Comment Auto diff final Sodium Potassium Chloride Carbon Dioxide Anion Gap BUN Creatinine Estimated GFR POC Glucose 360 H Random Glucose Lactic Acid Calcium Total Bilirubin AST ALT Alkaline Phosphatase Total Protein Albumin Lipase Beta-Hydroxybutyric Acd Urine Color Yellow Urine Clarity Cloudy H Urine pH 6.0 Ur Specific [place] 1.009 Urine Protein Negative Urine Glucose (UA) 500 or greater Urine Ketones Trace H Urine Occult Blood Negative Urine Nitrate Negative Urine Bilirubin Negative Urine Urobilinogen Less than 2 Ur Leukocyte Esterase Trace H Urine RBC Less than 1 Urine WBC 8 H Ur Squamous Epith Cells 5 Urine Bacteria Many H Urine Mucus Few H Micro UA Comment Culture indicated Urine Culture Comments Culture indicated - Imaging Impressions Chest X-Ray 02/16/18 11:31 CONCLUSION: No active disease. Caprini VTE Risk Assessment Caprini VTE Risk Assessment: Moderate/High Risk (score >= 2) Caprini Risk Assessment Model: Point Value = 1 Point Value = 2 Point Value = 3 Point Value = 5 Age 41-60 Minor surgery BMI > 25 kg/m2 Swollen legs Varicose veins or History of unexplained or recurrent spontaneous Oral contraceptives or hormone replacement Sepsis (< 1 month) Serious lung disease, including pneumonia (< 1 month) Abnormal pulmonary function Acute myocardial infarction Congestive heart failure (< 1 month) History of inflammatory bowel disease Medical patient at bed rest Age 61-74 Arthroscopic surgery Major open surgery (> 45 min) Laparoscopic surgery (> 45 min) Malignancy Confined to bed (> 72 hours) Immobilizing plaster cast Central venous access Age >= 75 History of VTE Family history of VTE Factor V Leiden Prothrombin [id number] Lupus anticoagulant Anticardiolipin antibodies Elevated serum homocysteine Heparin-induced thrombocytopenia Other congenital or acquired thrombophilia Stroke (< 1 month) Elective arthroplasty Hip, pelvis, or leg fracture Acute spinal cord injury (< 1 month) Prophylaxis Regimen: Total Risk Factor Score Risk Level Prophylaxis Regimen 0-1 Low Early ambulation 2 Moderate Order ONE of the following: *Sequential Compression Device (SCD) *Heparin 5000 units SQ BID 3-4 Higher Order ONE of the following medications: *Heparin 5000 units SQ TID *Enoxaparin/Lovenox 40 mg SQ daily (WT < 150 kg, CrCl > 30 mL/min) *Enoxaparin/Lovenox 30 mg SQ daily (WT < 150 kg, CrCl > 10-29 mL/min) *Enoxaparin/Lovenox 30 mg SQ BID (WT < 150 kg, CrCl > 30 mL/min) AND/OR *Sequential Compression Device (SCD) 5 or more Highest Order ONE of the following medications: *Heparin 5000 units SQ TID (Preferred with Epidurals) *Enoxaparin/Lovenox 40 mg SQ daily (WT < 150 kg, CrCl > 30 mL/min) *Enoxaparin/Lovenox 30 mg SQ daily (WT < 150 kg, CrCl > 10-29 mL/min) *Enoxaparin/Lovenox 30 mg SQ BID (WT < 150 kg, CrCl > 30 mL/min) AND *Sequential Compression Device (SCD) Assessment and Plan - Plan This is a 52 year old female patient with a past medical history which includes DM uncontrolled, gastroparesis, peripheral neuropathy, depression and HTN. Patient reports that she was sent to the ER by her ceramics instructor Dr. Bustamante due to uncontrolled DM with elevated blood glucose and concerns for urosepsis. Patient reports that for the past several weeks her glucose has been hard to control. States that over the past 5 days specifically her blood sugar has been in the 500s. On admission blood glucose was 424. Patient reports that she has been compliant with her insulin regiment (insulin regular Humulin U 500 70 Units TID) and that there have been no changes in her diet. Patient also reports that yesterday she was seen by her PCP and diagnosed with a UTI and started on amoxicillin. Patient endorses increased urinary frequency and urgency x 1 day. Patient also reports that she frequently has nausea and vomiting due to her gastroparesis but feels this has been worse over the past 3 weeks. DM uncontrolled gentle IV hydration Levemir 20 units BID Accu checks ACHS with high dose SSI Possible UTI Patient start on Amoxicillin UA reviewed patient started on Rocephin per the ER will continue await urine culture results Gastroparesis continue home EES TID Depression Continue home duloxetine DVT prophylaxis Lovenox <Tyson Sapp - Last Filed: 02/23/18 11:09> History of Present Illness Primary Care Physician: Manisha Estrada MD - Diagnosis (1) Hyperglycemia Inpatient Certification: I certify that the inpatient services were ordered in accordance with Medicare regulations governing the order. This includes certification that hospital inpatient services are reasonable and necessary and in the case of services not specified as inpatient-only under 42 CFR 419.22(n), that they are appropriately provided as inpatient services in accordance to with the 2-midnight benchmark under 43 CFR 412.3(e) [facility] - Medical History Medical History: Medical History (Last Reviewed 01/31/18 @ 13:45 by Purvi Alvarado MD) Chronic abdominal pain Diabetes Edema Gastroparesis Hypertension - Surgical History Surgical History: Surgical History (Last Reviewed 01/31/18 @ 13:45 by Purvi Alvarado MD) History of delivery History of cholecystectomy Results - Labs CBC & Chem 7: 02/21/18 06:04 02/21/18 06:04 Caprini VTE Risk Assessment Caprini Risk Assessment Model: Point Value = 1 Point Value = 2 Point Value = 3 Point Value = 5 Age 41-60 Minor surgery BMI > 25 kg/m2 Swollen legs Varicose veins or History of unexplained or recurrent spontaneous Oral contraceptives or hormone replacement Sepsis (< 1 month) Serious lung disease, including pneumonia (< 1 month) Abnormal pulmonary function Acute myocardial infarction Congestive heart failure (< 1 month) History of inflammatory bowel disease Medical patient at bed rest Age 61-74 Arthroscopic surgery Major open surgery (> 45 min) Laparoscopic surgery (> 45 min) Malignancy Confined to bed (> 72 hours) Immobilizing plaster cast Central venous access Age >= 75 History of VTE Family history of VTE Factor V Leiden Prothrombin [id number] Lupus anticoagulant Anticardiolipin antibodies Elevated serum homocysteine Heparin-induced thrombocytopenia Other congenital or acquired thrombophilia Stroke (< 1 month) Elective arthroplasty Hip, pelvis, or leg fracture Acute spinal cord injury (< 1 month) Prophylaxis Regimen: Total Risk Factor Score Risk Level Prophylaxis Regimen 0-1 Low Early ambulation 2 Moderate Order ONE of the following: *Sequential Compression Device (SCD) *Heparin 5000 units SQ BID 3-4 Higher Order ONE of the following medications: *Heparin 5000 units SQ TID *Enoxaparin/Lovenox 40 mg SQ daily (WT < 150 kg, CrCl > 30 mL/min) *Enoxaparin/Lovenox 30 mg SQ daily (WT < 150 kg, CrCl > 10-29 mL/min) *Enoxaparin/Lovenox 30 mg SQ BID (WT < 150 kg, CrCl > 30 mL/min) AND/OR *Sequential Compression Device (SCD) 5 or more Highest Order ONE of the following medications: *Heparin 5000 units SQ TID (Preferred with Epidurals) *Enoxaparin/Lovenox 40 mg SQ daily (WT < 150 kg, CrCl > 30 mL/min) *Enoxaparin/Lovenox 30 mg SQ daily (WT < 150 kg, CrCl > 10-29 mL/min) *Enoxaparin/Lovenox 30 mg SQ BID (WT < 150 kg, CrCl > 30 mL/min) AND *Sequential Compression Device (SCD) Assessment and Plan - Assessment (1) Hyperglycemia Code(s): R73.9 - Hyperglycemia, unspecified Status: Acute - Attending Attestation Patient examined. Assessment and plan formulated with Lorie Sesay PA-C. I agree with the above.
--- NOTE | 2018-02-16 15:43 | ECG ---
Date Performed: 02/16/2018 Time Performed: 12:03:54 PTAGE: 52 years EKG: Sinus rhythm LEFT AXIS DEVIATION POSSIBLE ANTERIOR MYOCARDIAL INFARCTION ABNORMAL ECG NO PREVIOUS TRACING DOCTOR: Curly Gibson Interpretating Date/Time 02/16/2018 15:41:16
[2018-02-16] MEDS ORDERED: Non-Formulary Drug (Promethazine [Promethazine] 12.5 MG) PO PRN (16:04)
--- NOTE | 2018-02-16 16:11 | XR ---
EXAM DATE: 02/16/2018 4:08 PM EDT AGE/SEX: 52 years / Female INDICATIONS: Abdominal distention and nausea. CLINICAL DATA: This is the patient's initial encounter. Patient reports that signs and symptoms have been present for 3 days and indicates a pain score of 0/10. MEDICAL/SURGICAL HISTORY: Gastroparesis. Cholecystectomy. COMPARISON: [facility] [place], ABDOMEN FLAT & UPRIGHT, 12/24/2017. . FINDINGS: The examination demonstrates some minimal gaseous distention of the distal sigmoid colon. There is a moderate amount of stool in the ascending and transverse colon.. There is no free air seen. The visu alized bony structures are grossly intact. CONCLUSION: No findings to indicate bowel obstruction. Mild gaseous distention of the sigmoid and moderate amount of stool within the ascending colon and pr oximal transverse colon. Electronically signed by: Nikhil Burk MD 02/16/2018 4:10 PM EDT
[2018-02-16] MEDS: Insulin NovoLIN Regular Correctional Sugar Inj SQ SCH ×2 (16:48→22:17)
[2018-02-16] MEDS: Enoxaparin Inj 40 MG/0.4 ML Syringe SQ SCH (16:48)
[2018-02-16] MEDS ORDERED: Non-Formulary Drug (Metoclopramide Hcl [Metoclopramide Hcl] 5 MG) PO SCH (18:00)
[2018-02-16] MEDS: Sod Chloride 0.9% Inj 1,000 ML IV.CONT SCH (18:10)
[2018-02-16] MEDS: Lipase/Protease/Amylase 24/76/120 DR Capsule PO SCH (18:16)
[2018-02-16] MEDS: ERYTHROMYCIN 250 MG PO SCH (18:40)
[2018-02-16] MEDS: Pregabalin 75 MG Capsule PO SCH (18:48)
[2018-02-16] MEDS ORDERED: ROSUVASTATIN 20 MG PO SCH (21:00)
[2018-02-16] MEDS: Carvedilol 12.5 MG Tablet PO SCH (21:10)
[2018-02-16] MEDS: Duloxetine 60 MG DR Capsule PO SCH (21:11)
[2018-02-16] MEDS: Senna/Docusate Sodium 8.6/50 MG Tablet PO SCH (21:11)
[2018-02-16] MEDS: Insulin Detemir Inj 1,000 UNIT/10 ML Vial SQ SCH (22:09)
[2018-02-17 07:33] LABS: Baso # (Auto) 0.1 th/mm3 (0.0-0.2); Baso % (Auto) 1.2 % (0.0-2.0); Eos # (Auto) 0.2 th/mm3 (0.0-0.4); Eos % (Auto) 2.1 % (0.0-4.0); Hematocrit 38.5 % (35.0-46.0); Hemoglobin 12.9 gm/dL (11.6-15.3); Lymph % (Auto) 35.5 % (9.0-44.0); Mean Corpuscular HGB Conc 33.5 % (32.0-36.0); Mean Corpuscular Volume 86.7 fL (80.0-100.0); Mean Platelet Volume 7.6 fL (7.0-11.0); Mono # (Auto) 0.7 th/mm3 (0.0-0.9); Mono % (Auto) 8.5 % (0.0-8.0); Neut # (Auto) 4.5 th/mm3 (1.8-7.7); Neut % (Auto) 52.7 % (16.0-70.0); Platelet Count 267 th/mm3 (150-450); Red Blood Count 4.44 mil/mm3 (4.00-5.30); Red Cell Distribution Width 14.2 % (11.6-17.2); White Blood Count 8.6 th/mm3 (4.0-11.0)
[2018-02-17 08:17] LABS: Calcium 8.7 mg/dL (8.5-10.1); Carbon Dioxide 33.1 meq/L (21.0-32.0)
[2018-02-17 08:28] LABS: Potassium 2.8 meq/L (3.5-5.1)
[2018-02-17] MEDS: Insulin Detemir Inj 1,000 UNIT/10 ML Vial SQ SCH ×2 (09:11→21:44)
[2018-02-17] MEDS: Insulin NovoLIN Regular Correctional Sugar Inj SQ SCH ×4 (09:12→21:45)
[2018-02-17] MEDS: Senna/Docusate Sodium 8.6/50 MG Tablet PO SCH ×2 (09:14→21:48)
[2018-02-17] MEDS: Lipase/Protease/Amylase 24/76/120 DR Capsule PO SCH ×3 (09:15→18:31)
[2018-02-17] MEDS: Pregabalin 75 MG Capsule PO SCH ×3 (09:15→18:31)
[2018-02-17] MEDS: Carvedilol 12.5 MG Tablet PO SCH ×2 (10:13→21:47)
[2018-02-17] MEDS: Metoclopramide 10 MG Tablet PO SCH ×3 (10:15→18:31)
[2018-02-17] MEDS: ERYTHROMYCIN 250 MG PO SCH (10:16)
[2018-02-17] MEDS ORDERED: Insulin Detemir Inj 1,000 UNIT/10 ML Vial SQ ONE (11:16)
[2018-02-17] MEDS: Enoxaparin Inj 40 MG/0.4 ML Syringe SQ SCH (14:41)
[2018-02-17 16:14] LABS: Hemoglobin A1c 9.2 % (4.3-6.0)
--- NOTE | 2018-02-17 17:00 | P.PNIM ---
Subjective Interval history: Follow up uncontrolled DM Patient reports white vaginal discharge and itching Physical Exam Vital signs: Vital Signs 02/16/18 18:14 02/16/18 20:00 02/16/18 22:49 Temperature 98.0 F 98.9 F Pulse Rate 102 H 103 H Respiratory Rate 16 18 Blood Pressure 149/72 H 188/85 H 135/63 Pulse Oximetry 94 L 95 02/17/18 00:49 02/17/18 04:35 02/17/18 07:41 Temperature 98.4 F 97.2 F L 98.8 F Pulse Rate 94 H 93 H 93 H Respiratory Rate 20 18 16 Blood Pressure 140/60 132/58 L 139/67 Pulse Oximetry 93 L 93 L 02/17/18 11:58 02/17/18 15:35 Temperature 97.7 F 98.6 F Pulse Rate 92 H 92 H Respiratory Rate 16 16 Blood Pressure 118/59 L 110/52 L Pulse Oximetry 92 L 94 L Intake & Output 02/16/18 02/17/18 02/17/18 18:59 06:59 18:59 Intake Total 1600 / 1600 100 / 100 Balance 1600 / 1600 100 / 100 Weight 114.759 kg Intake: IV 1600 / 1600 100 / 100 NS Inj 500 ML @ Wide Open IV. 500 / 500 SIG BOLUS ONE Rx#:[id number] Rocephin Inj 1,000 MG In NS Inj 100 / 100 100 / 100 100 ML @ 200 mls/hr IV.SIG Q24H HECTOR Rx#:[id number] Other: # Voids 2 Date of Last Bowel Movement 02/14/18 Narrative: GENERAL: This is a morbidly obese 52 year female patient, well-developed patient , in no apparent distress. CARDIOVASCULAR: Regular rate and rhythm RESPIRATORY: Difficult to auscultate due to body habitus. Clear to auscultation. Breath sounds equal bilaterally. GASTROINTESTINAL: Abdomen soft, non-tender, nondistended. Normal active bowel sounds MUSCULOSKELETAL: Extremities without clubbing, cyanosis, or edema. NEURO: Alert & Oriented x4 to person, place, time, situation. Moves all ext x4 Results - Labs CBC & Chem 7: 02/21/18 06:04 02/21/18 06:04 Laboratory Results - last 24 hr 02/16/18 02/17/18 02/17/18 21:57 06:21 06:21 WBC 8.6 RBC 4.44 Hgb 12.9 Hct 38.5 MCV 86.7 MCH 29.0 MCHC 33.5 RDW 14.2 Plt Count 267 MPV 7.6 Neut % (Auto) 52.7 Lymph % (Auto) 35.5 [place] % (Auto) 8.5 H Eos % (Auto) 2.1 Baso % (Auto) 1.2 Neut # (Auto) 4.5 Lymph # (Auto) 3.0 [place] # (Auto) 0.7 Eos # (Auto) 0.2 Baso # (Auto) 0.1 WBC Differential . Differential Comment Auto diff final Sodium 141 Potassium 2.8 L* Chloride 98 Carbon Dioxide 33.1 H Anion Gap 10 BUN 8 Creatinine 0.76 Estimated GFR 80 L POC Glucose 282 H Random Glucose 324 H D Calcium 8.7 Magnesium 02/17/18 02/17/18 02/17/18 06:21 08:44 12:30 WBC RBC Hgb Hct MCV MCH MCHC RDW Plt Count MPV Neut % (Auto) Lymph % (Auto) [place] % (Auto) Eos % (Auto) Baso % (Auto) Neut # (Auto) Lymph # (Auto) [place] # (Auto) Eos # (Auto) Baso # (Auto) WBC Differential Differential Comment Sodium Potassium Chloride Carbon Dioxide Anion Gap BUN Creatinine Estimated GFR POC Glucose 334 H 337 H Random Glucose Calcium Magnesium 1.9 Microbiology 02/16/18 11:40 Clean Catch Urine Urine Culture - Preliminary Immature growth - reincubate Assessment and Plan - Plan This is a 52 year old female patient with a past medical history which includes DM uncontrolled, gastroparesis, peripheral neuropathy, depression and HTN. Patient reports that she was sent to the ER by her software release engineer Dr. Bustamante due to uncontrolled DM with elevated blood glucose and concerns for urosepsis. Patient reports that for the past several weeks her glucose has been hard to control. States that over the past 5 days specifically her blood sugar has been in the 500s. On admission blood glucose was 424. Patient reports that she has been compliant with her insulin regiment (insulin regular Humulin U 500 70 Units TID) and that there have been no changes in her diet. Patient also reports that yesterday she was seen by her PCP and diagnosed with a UTI and started on amoxicillin. Patient endorses increased urinary frequency and urgency x 1 day. Patient also reports that she frequently has nausea and vomiting due to her gastroparesis but feels this has been worse over the past 3 weeks. DM uncontrolled gentle IV hydration Increase Levemir to 25 units BID Accu checks ACHS with high dose SSI Possible UTI Patient start on Amoxicillin UA reviewed Continue Rocephin await urine culture results Vaginal Candidiasis Cargo Vessel Stewardess Lotrimin vaginal supp QHS x3 nights Gastroparesis continue home EES TID Depression Continue home duloxetine DVT prophylaxis Lovenox - Attending Attestation Patient examined. Assessment and plan formulated with Lorie Sesay PA-C. I agree with the above.
[2018-02-17] MEDS: Sod Chloride 0.9% Inj 1,000 ML IV.CONT SCH (18:20)
[2018-02-18] MEDS: Duloxetine 60 MG DR Capsule PO SCH ×2 (06:25→21:27)
[2018-02-18 07:55] LABS: Calcium 8.4 mg/dL (8.5-10.1); Carbon Dioxide 32.8 meq/L (21.0-32.0); Potassium 3.2 meq/L (3.5-5.1)
[2018-02-18] MEDS: Senna/Docusate Sodium 8.6/50 MG Tablet PO SCH ×2 (09:01→21:18)
[2018-02-18] MEDS: Insulin Detemir Inj 1,000 UNIT/10 ML Vial SQ SCH ×2 (09:01→21:16)
[2018-02-18] MEDS: Carvedilol 12.5 MG Tablet PO SCH ×2 (09:02→21:17)
[2018-02-18] MEDS: Metoclopramide 10 MG Tablet PO SCH ×3 (09:02→18:00)
[2018-02-18] MEDS: Pregabalin 75 MG Capsule PO SCH ×3 (09:03→18:06)
[2018-02-18] MEDS: Lipase/Protease/Amylase 24/76/120 DR Capsule PO SCH ×3 (09:03→21:28)
[2018-02-18] MEDS: Insulin NovoLIN Regular Correctional Sugar Inj SQ SCH ×4 (09:36→21:16)
[2018-02-18] MEDS ORDERED: Insulin Detemir Inj 1,000 UNIT/10 ML Vial SQ ONE (10:18)
--- NOTE | 2018-02-18 13:22 | P.PNIM ---
Subjective Interval history: Follow up uncontrolled DM Physical Exam Vital signs: Vital Signs 02/17/18 15:35 02/17/18 18:12 02/17/18 18:15 Temperature 98.6 F 98.5 F Pulse Rate 92 H 94 H Respiratory Rate 16 18 16 Blood Pressure 110/52 L 141/63 H Pulse Oximetry 94 L 92 L 02/17/18 23:38 02/18/18 02:45 02/18/18 03:33 Temperature 97.9 F 97.7 F Pulse Rate 94 H 84 83 Respiratory Rate 20 20 Blood Pressure 118/57 L 134/66 Pulse Oximetry 92 L 93 L 02/18/18 08:00 02/18/18 09:00 02/18/18 12:00 Temperature 98.2 F 98.2 F Pulse Rate 90 90 92 H Respiratory Rate 18 18 Blood Pressure 113/59 L 127/57 L Pulse Oximetry 93 L 96 Intake & Output 02/17/18 02/18/18 02/18/18 18:59 06:59 18:59 Intake Total 1100 / 1100 Balance 1100 / 1100 Intake: IV 1100 / 1100 NS Inj 1,000 ML @ 42 mls/hr IV. 1000 / 1000 CONT .[id number] HECTOR Rx#:[id number] Rocephin Inj 1,000 MG In NS Inj 100 / 100 100 ML @ 200 mls/hr IV.SIG Q24H HECTOR Rx#:[id number] Other: # Voids 2 Date of Last Bowel Movement 02/14/18 02/14/18 # Bowel Movements 0 # Emeses 1 Narrative: GENERAL: This is a morbidly obese 52 year female patient, well-developed patient , in no apparent distress. CARDIOVASCULAR: Regular rate and rhythm RESPIRATORY: Difficult to auscultate due to body habitus. Clear to auscultation. Breath sounds equal bilaterally. GASTROINTESTINAL: Abdomen soft, non-tender, nondistended. Normal active bowel sounds MUSCULOSKELETAL: Extremities without clubbing, cyanosis, or edema. NEURO: Alert & Oriented x4 to person, place, time, situation. Moves all ext x4 Results - Labs CBC & Chem 7: 02/21/18 06:04 02/21/18 06:04 Laboratory Results - last 24 hr 02/17/18 02/17/18 02/17/18 06:21 16:25 17:37 Sodium Potassium 3.3 L Chloride Carbon Dioxide Anion Gap BUN Creatinine Estimated GFR POC Glucose 317 H Random Glucose Hemoglobin A1c 9.2 H Calcium 02/17/18 02/18/18 02/18/18 19:57 07:00 08:05 Sodium 141 Potassium 3.2 L Chloride 101 Carbon Dioxide 32.8 H Anion Gap 7 BUN 8 Creatinine 0.77 Estimated GFR 79 L POC Glucose 289 H 280 H Random Glucose 291 H Hemoglobin A1c Calcium 8.4 L 02/18/18 11:35 Sodium Potassium Chloride Carbon Dioxide Anion Gap BUN Creatinine Estimated GFR POC Glucose 370 H Random Glucose Hemoglobin A1c Calcium Microbiology 02/16/18 11:40 Clean Catch Urine Urine Culture - Final 10-50,000 cfu/mL mixed gram positive emy (probable contaminants) Assessment and Plan - Plan This is a 52 year old female patient with a past medical history which includes DM uncontrolled, gastroparesis, peripheral neuropathy, depression and HTN. Patient reports that she was sent to the ER by her basting puller Dr. Bustamante due to uncontrolled DM with elevated blood glucose and concerns for urosepsis. Patient reports that for the past several weeks her glucose has been hard to control. States that over the past 5 days specifically her blood sugar has been in the 500s. On admission blood glucose was 424. Patient reports that she has been compliant with her insulin regiment (insulin regular Humulin U 500 70 Units TID) and that there have been no changes in her diet. Patient also reports that yesterday she was seen by her PCP and diagnosed with a UTI and started on amoxicillin. Patient endorses increased urinary frequency and urgency x 1 day. Patient also reports that she frequently has nausea and vomiting due to her gastroparesis but feels this has been worse over the past 3 weeks. 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 Assessment and plan formulated with Lorie Sesay PA-C. I agree with the above.
[2018-02-18] MEDS: Enoxaparin Inj 40 MG/0.4 ML Syringe SQ SCH (16:36)
[2018-02-19] MEDS: Lipase/Protease/Amylase 24/76/120 DR Capsule PO SCH ×3 (08:39→18:15)
[2018-02-19] MEDS: Metoclopramide 10 MG Tablet PO SCH ×3 (08:40→18:11)
[2018-02-19] MEDS: Insulin Detemir Inj 1,000 UNIT/10 ML Vial SQ SCH ×2 (08:40→20:19)
[2018-02-19] MEDS: Pregabalin 75 MG Capsule PO SCH ×3 (08:41→18:13)
[2018-02-19] MEDS: Carvedilol 12.5 MG Tablet PO SCH ×2 (08:41→20:10)
[2018-02-19] MEDS: Senna/Docusate Sodium 8.6/50 MG Tablet PO SCH ×2 (08:41→20:11)
[2018-02-19] MEDS: Insulin NovoLIN Regular Correctional Sugar Inj SQ SCH (08:52)
[2018-02-19] MEDS ORDERED: Dextrose 50% in Water 50 ML Vial IV.PUSH PRN (09:43)
[2018-02-19] MEDS ORDERED: Insulin Detemir Inj 1,000 UNIT/10 ML Vial SQ ONE (10:00)
[2018-02-19 12:08] LABS: Calcium 8.7 mg/dL (8.5-10.1); Carbon Dioxide 30.9 meq/L (21.0-32.0); Potassium 3.3 meq/L (3.5-5.1)
[2018-02-19] MEDS: Enoxaparin Inj 40 MG/0.4 ML Syringe SQ SCH (14:28)
[2018-02-19] MEDS: Insulin NovoLOG Aspart Correctional Sugar Inj SQ SCH ×3 (14:32→20:18)
[2018-02-19] MEDS: Sod Chloride 0.9% Inj 1,000 ML IV.CONT SCH (16:48)
--- NOTE | 2018-02-19 18:20 | P.PNIM ---
Subjective Interval history: Follow up hyperglycemia Patient c/o bilateral upper and lower extremity edema Physical Exam Vital signs: Vital Signs 02/18/18 20:00 02/19/18 00:00 02/19/18 04:00 Temperature 98.1 F 98.2 F 97.0 F L Pulse Rate 96 H 92 H 76 Respiratory Rate 18 17 15 Blood Pressure 126/58 L 139/68 119/59 L Pulse Oximetry 94 L 96 94 L 02/19/18 08:00 02/19/18 09:00 02/19/18 12:00 Temperature 97.0 F L 97.6 F Pulse Rate 90 94 H 94 H Respiratory Rate 18 Blood Pressure 129/74 123/70 Pulse Oximetry 94 L 94 L 02/19/18 16:00 Temperature 97.9 F Pulse Rate 88 Respiratory Rate 16 Blood Pressure 111/59 L Pulse Oximetry 96 Intake & Output 02/18/18 02/19/18 02/19/18 18:59 06:59 18:59 Intake Total 400 / 400 600 / 600 Balance 400 / 400 600 / 600 Weight 120.4 kg Intake: Oral 400 / 400 600 / 600 Other: # Voids 1 2 Date of Last Bowel Movement 02/14/18 02/14/18 Weight On Admission 120.4 kg Narrative: GENERAL: This is a morbidly obese 52 year female patient, well-developed patient , in no apparent distress. CARDIOVASCULAR: Regular rate and rhythm RESPIRATORY: Difficult to auscultate due to body habitus. Clear to auscultation. Breath sounds equal bilaterally. GASTROINTESTINAL: Abdomen soft, non-tender, nondistended. Normal active bowel sounds MUSCULOSKELETAL: Extremities without clubbing, cyanosis. Bilateral upper and lower extremities 2+ NEURO: Alert & Oriented x4 to person, place, time, situation. Moves all ext x4 Results - Labs CBC & Chem 7: 02/21/18 06:04 02/21/18 06:04 Laboratory Results - last 24 hr 02/18/18 02/19/18 02/19/18 20:58 08:03 10:26 Sodium 142 Potassium 3.3 L Chloride 103 Carbon Dioxide 30.9 Anion Gap 8 BUN 6 L Creatinine 0.73 Estimated GFR 84 L POC Glucose 298 H 342 H Random Glucose 293 H Calcium 8.7 02/19/18 02/19/18 11:59 17:33 Sodium Potassium Chloride Carbon Dioxide Anion Gap BUN Creatinine Estimated GFR POC Glucose 316 H 235 H Random Glucose Calcium Assessment and Plan - Plan This is a 52 year old female patient with a past medical history which includes DM uncontrolled, gastroparesis, peripheral neuropathy, depression and HTN. Patient reports that she was sent to the ER by her plug shaper hand Dr. Bustamante due to uncontrolled DM with elevated blood glucose and concerns for urosepsis. Patient reports that for the past several weeks her glucose has been hard to control. States that over the past 5 days specifically her blood sugar has been in the 500s. On admission blood glucose was 424. Patient reports that she has been compliant with her insulin regiment (insulin regular Humulin U 500 70 Units TID) and that there have been no changes in her diet. Patient also reports that yesterday she was seen by her PCP and diagnosed with a UTI and started on amoxicillin. Patient endorses increased urinary frequency and urgency x 1 day. Patient also reports that she frequently has nausea and vomiting due to her gastroparesis but feels this has been worse over the past 3 weeks. DM uncontrolled gentle IV hydration Hemoglobin A1c 9.2 Increase Levemir to 37 units BID, add Novolog 5 units with each meal Accu checks ACHS with high dose SSI (02/19) patient's glucose remains elevated despite increasing insulin, out side food (Marisa) noted at patient's bedside. Patient is to stay on a 1500 carolann diabetic diet. 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 Assessment and plan formulated with Lorie WYATT I agree with the above.
[2018-02-19] MEDS ORDERED: Sod Phosphate/Sod Biphosphate (Adult) Enema 133 ML Bottle RECTAL PRN (19:00)
[2018-02-19] MEDS ORDERED: Bisacodyl 10 MG Supp RECTAL PRN (19:00)
[2018-02-19] MEDS: Duloxetine 60 MG DR Capsule PO SCH (20:10)
--- NOTE | 2018-02-19 22:55 | US ---
EXAM DATE: 02/19/2018 10:51 PM EDT AGE/SEX: 52 years / Female INDICATIONS: Abnormal lab values. CLINICAL DATA: This is the patient's initial encounter. Patient reports that signs and symptoms have been present for 4 - 6 days and indicates a pain score of 0/10. MEDICAL/SURGICAL HISTORY: Diabetes. Gastroparesis. Hypertension. Edema. section. Cholecystectomy. COMPARISON: [facility], CT ABDOMEN & PELVIS W CONTRAST, 01/31/2018. . MEASUREMENTS: Right Kidney:__12.5 x 6.1 x 6.6 cm Left Kidney:__12.4 x 6.4 x 5.9 cm FINDINGS: Right Kidney: Normal echotexture and cortical thickness. No mass or hydronephrosis. Left Kidney: Normal echotexture and cortical thickness. No hydronephrosis. There is a small hypoechoi c nodule along the lateral kidney measuring up to 1.9 x 1.4 x 1.7 cm which corresponds to a simple ap pearing cyst on the CT. Bladder: Within normal limits given the degree of distension. Other: None. CONCLUSION: 1. No evidence of hydronephrosis. 2. The echogenicity of the kidneys appears unremarkable. 3. Small cyst in left kidney. Electronically signed by: Rolly Padilla MD 02/19/2018 10:54 PM EDT
[2018-02-20] MEDS: Potassium Chloride 10 MEQ ER Capsule PO SCH (08:53)
[2018-02-20] MEDS: Metoclopramide 10 MG Tablet PO SCH ×3 (08:54→18:51)
[2018-02-20] MEDS: Carvedilol 12.5 MG Tablet PO SCH ×2 (08:54→20:55)
[2018-02-20] MEDS: Senna/Docusate Sodium 8.6/50 MG Tablet PO SCH ×2 (08:54→20:54)
[2018-02-20] MEDS: Pregabalin 75 MG Capsule PO SCH ×3 (08:55→18:52)
[2018-02-20] MEDS: Lipase/Protease/Amylase 24/76/120 DR Capsule PO SCH ×3 (09:28→19:03)
[2018-02-20 09:52] LABS: Calcium 8.7 mg/dL (8.5-10.1); Carbon Dioxide 29.7 meq/L (21.0-32.0); Potassium 3.7 meq/L (3.5-5.1)
[2018-02-20] MEDS: Insulin Detemir Inj 1,000 UNIT/10 ML Vial SQ SCH ×2 (10:31→20:56)
[2018-02-20] MEDS: Insulin NovoLOG Aspart Correctional Sugar Inj SQ SCH ×4 (10:31→20:56)
[2018-02-20] MEDS ORDERED: Insulin Detemir Inj 1,000 UNIT/10 ML Vial SQ SCH (11:37)
[2018-02-20] MEDS: Enoxaparin Inj 40 MG/0.4 ML Syringe SQ SCH (15:45)
--- NOTE | 2018-02-20 18:07 | P.PNIM ---
Subjective Interval history: Follow up hyperglycemia Patient c/o vomiting x 1 after eating lunch Physical Exam Vital signs: Vital Signs 02/19/18 20:00 02/20/18 00:00 02/20/18 00:52 Temperature 98.2 F 97.9 F Pulse Rate 93 H 84 87 Respiratory Rate 18 18 Blood Pressure 116/62 118/63 Pulse Oximetry 91 L 96 02/20/18 04:00 02/20/18 08:00 02/20/18 12:00 Temperature 97.6 F 98 F 98.3 F Pulse Rate 82 94 H 87 Respiratory Rate 18 20 20 Blood Pressure 127/71 130/73 132/72 Pulse Oximetry 95 95 97 02/20/18 16:00 02/20/18 17:04 Temperature 98.2 F Pulse Rate 82 82 Respiratory Rate 20 Blood Pressure 144/77 H Pulse Oximetry 95 Intake & Output 02/19/18 02/20/18 02/20/18 18:59 06:59 18:59 Intake Total 600 / 600 1720 / 1720 Output Total 2600 / 2600 Balance 600 / 600 -880 / -880 Weight 121.2 kg 123.6 kg Intake: IV 1000 / 1000 NS Inj 1,000 ML @ 42 mls/hr IV. 1000 / 1000 CONT .[id number] HECTOR Rx#:[id number] Oral 600 / 600 720 / 720 Output: Urine 2600 / 2600 Other: # Voids 2 Date of Last Bowel Movement 02/18/18 # Bowel Movements 0 Narrative: GENERAL: This is a morbidly obese 52 year female patient, well-developed patient , in no apparent distress. CARDIOVASCULAR: Regular rate and rhythm RESPIRATORY: Difficult to auscultate due to body habitus. Clear to auscultation. Breath sounds equal bilaterally. GASTROINTESTINAL: Abdomen soft, non-tender, nondistended. Normal active bowel sounds MUSCULOSKELETAL: Extremities without clubbing, cyanosis. Bilateral upper and lower extremities 2+ NEURO: Alert & Oriented x4 to person, place, time, situation. Moves all ext x4 Results - Labs CBC & Chem 7: 02/21/18 06:04 02/21/18 06:04 Laboratory Results - last 24 hr 02/19/18 02/20/18 02/20/18 19:33 08:11 08:19 Sodium 142 Potassium 3.7 Chloride 105 Carbon Dioxide 29.7 Anion Gap 7 BUN 7 Creatinine 0.70 Estimated GFR 88 L POC Glucose 280 H 223 H Random Glucose 220 H Calcium 8.7 02/20/18 02/20/18 12:48 16:47 Sodium Potassium Chloride Carbon Dioxide Anion Gap BUN Creatinine Estimated GFR POC Glucose 335 H 176 H Random Glucose Calcium - Imaging Impressions Abdomen/Bladder Ultrasound 02/19/18 00:00 CONCLUSION: 1. No evidence of hydronephrosis. 2. The echogenicity of the kidneys appears unremarkable. 3. Small cyst in left kidney. Assessment and Plan - Plan This is a 52 year old female patient with a past medical history which includes DM uncontrolled, gastroparesis, peripheral neuropathy, depression and HTN. Patient reports that she was sent to the ER by her metal leaf layer Dr. Bustamante due to uncontrolled DM with elevated blood glucose and concerns for urosepsis. Patient reports that for the past several weeks her glucose has been hard to control. States that over the past 5 days specifically her blood sugar has been in the 500s. On admission blood glucose was 424. Patient reports that she has been compliant with her insulin regiment (insulin regular Humulin U 500 70 Units TID) and that there have been no changes in her diet. Patient also reports that yesterday she was seen by her PCP and diagnosed with a UTI and started on amoxicillin. Patient endorses increased urinary frequency and urgency x 1 day. Patient also reports that she frequently has nausea and vomiting due to her gastroparesis but feels this has been worse over the past 3 weeks. DM uncontrolled gentle IV hydration Hemoglobin A1c 9.2 Increase Levemir to 40 units BID, add Novolog 5 units with each meal Accu checks ACHS with high dose SSI 1500 carolann diabetic diet. Bilateral upper and lower extremity edema 2 D echocardiogram requested and pending Lasix 80 mg IV x 1 now and in AM Renal US: 1. No evidence of hydronephrosis. 2. The echogenicity of the kidneys appears unremarkable. 3. Small cyst in left kidney. 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 Assessment and plan formulated with Lorie Sesay PA-C. I agree with the above.
[2018-02-20] MEDS: Duloxetine 60 MG DR Capsule PO SCH (21:17)
[2018-02-21 08:10] LABS: Baso # (Auto) 0.1 th/mm3 (0.0-0.2); Baso % (Auto) 0.8 % (0.0-2.0); Eos # (Auto) 0.2 th/mm3 (0.0-0.4); Eos % (Auto) 1.9 % (0.0-4.0); Hematocrit 39.5 % (35.0-46.0); Hemoglobin 12.8 gm/dL (11.6-15.3); Lymph # (Auto) 2.6 th/mm3 (1.0-4.8); Lymph % (Auto) 29.4 % (9.0-44.0); Mean Corpuscular HGB Conc 32.4 % (32.0-36.0); Mean Corpuscular Hemoglobin 28.8 pg (27.0-34.0); Mean Corpuscular Volume 88.8 fL (80.0-100.0); Mean Platelet Volume 7.7 fL (7.0-11.0); Mono # (Auto) 0.7 th/mm3 (0.0-0.9); Neut # (Auto) 5.2 th/mm3 (1.8-7.7); Neut % (Auto) 59.9 % (16.0-70.0); Platelet Count 268 th/mm3 (150-450); Red Blood Count 4.45 mil/mm3 (4.00-5.30); Red Cell Distribution Width 15.2 % (11.6-17.2); White Blood Count 8.7 th/mm3 (4.0-11.0)
[2018-02-21 08:11] LABS: Calcium 8.6 mg/dL (8.5-10.1); Carbon Dioxide 29.3 meq/L (21.0-32.0); Magnesium 1.9 mg/dL (1.5-2.5); Potassium 4.1 meq/L (3.5-5.1)
[2018-02-21] MEDS: Senna/Docusate Sodium 8.6/50 MG Tablet PO SCH ×2 (08:48→20:24)
[2018-02-21] MEDS: Potassium Chloride 10 MEQ ER Capsule PO SCH (08:48)
[2018-02-21] MEDS: Pregabalin 75 MG Capsule PO SCH ×3 (08:49→18:41)
[2018-02-21] MEDS: Carvedilol 12.5 MG Tablet PO SCH ×2 (08:49→20:24)
[2018-02-21] MEDS: Lipase/Protease/Amylase 24/76/120 DR Capsule PO SCH ×3 (08:50→18:41)
[2018-02-21] MEDS: Metoclopramide 10 MG Tablet PO SCH ×3 (08:50→18:40)
[2018-02-21] MEDS: Insulin NovoLOG Aspart Correctional Sugar Inj SQ SCH ×4 (08:51→20:23)
[2018-02-21] MEDS: Insulin Detemir Inj 1,000 UNIT/10 ML Vial SQ SCH ×2 (08:52→20:23)
--- NOTE | 2018-02-21 12:32 | ECHRPT ---
Indication: heart failure CONCLUSIONS The left ventricular systolic function is hyperdynamic with an estimated ejection fraction in the ra nge of 65- 70%. Normal left ventricular size. Wall thickness is normal. No regional wall motion abnormalities are present. The pulmonary valve is not well visualized. BP: / HR: Rhythm: Sinus MEASUREMENTS (Male / Female) Normal Values Technical Quality:Fair 2D ECHO LV Diastolic Diameter PLAX 5.1 cm 4.2 - 5.9 / 3.9 - 5.3 cm LV Systolic Diameter PLAX 3.4 cm IVS Diastolic Thickness 1.0 cm 0.6 - 1.0 / 0.6 - 0.9 cm LVPW Diastolic Thickness 1.0 cm 0.6 - 1.0 / 0.6 - 0.9 cm LV Relative Wall Thickness 0.4 RV Internal Dim ED PLAX 2.5 cm LVOT Diameter 2.0 cm LA Systolic Diameter LX 3.8 cm 3.0 - 4.0 / 2.7 - 3.8 cm LV Ejection Fraction MOD 4C 61.0 % LV Ejection Fraction 4C AL 62.3 % M-MODE Aortic Root Diameter MM 2.4 cm LA Systolic Diameter MM 3.3 cm LA Ao Ratio MM 1.4 AV Cusp Separation MM 1.8 cm DOPPLER AV Peak Velocity 164.0 cm/s AV Peak Gradient 10.8 mmHg LVOT Peak Velocity 76.0 cm/s LVOT Peak Gradient 2.3 mmHg AV Area Cont Eq pk 1.5 cm MV Area PHT 4.6 cm Mitral E Point Velocity 116.0 cm/s Mitral A Point Velocity 116.0 cm/s Mitral E to A Ratio 1.0 LV E' Lateral Velocity 7.8 cm/s Mitral E to LV E' Lateral Ratio 14.8 LV E' Septal Velocity 5.5 cm/s Mitral E to LV E' Septal Ratio 21.2 PV Peak Velocity 100.0 cm/s PV Peak Gradient 4.0 mmHg FINDINGS LEFT VENTRICLE The left ventricular systolic function is hyperdynamic with an estimated ejection fraction in the ra nge of 65- 70%. Normal left ventricular size. Wall thickness is normal. No regional wall motion abnormalities are present. RIGHT VENTRICLE Normal right ventricular size and systolic function. LEFT ATRIUM The left atrial size is normal. RIGHT ATRIUM The right atrial size is normal. ATRIAL SEPTUM Normal atrial septal thickness without atrial level shunting by limited color doppler interrogation. AORTA The aortic root and proximal ascending aorta are normal in size on limited imaging. MITRAL VALVE Structurally normal mitral valve. No mitral valve stenosis or regurgitation. AORTIC VALVE Trileaflet aortic valve. No aortic valve stenosis or regurgitation. TRICUSPID VALVE Structurally normal tricuspid valve. No tricuspid valve stenosis or regurgitation. PULMONARY VALVE The pulmonary valve is not well visualized. VESSELS The inferior vena cava is normal in size. PERICARDIUM No pericardial effusion. Mendoza Bridgse MD, FACC (Electronically Signed) Final Date:21 February 2018 12:31
[2018-02-21] MEDS: Enoxaparin Inj 40 MG/0.4 ML Syringe SQ SCH (14:44)
--- NOTE | 2018-02-21 17:55 | P.DS ---
<Lorie Sesay W - Last Filed: 02/21/18 19:27> Date of admission: 02/16/18 17:50 Primary care physician: Manisha Estrada MD Attending physician on discharge: Tyson Sapp Anticipated date of discharge: 02/21/18 Brief History from admission: This is a 52 year old female patient with a past medical history which includes DM uncontrolled, gastroparesis, peripheral neuropathy, depression and HTN. Patient reports that she was sent to the ER by her supervisor power reactor Dr. Bustamante due to uncontrolled DM with elevated blood glucose and concerns for urosepsis. Patient reports that for the past several weeks her glucose has been hard to control. States that over the past 5 days specifically her blood sugar has been in the 500s. On admission blood glucose was 424. Patient reports that she has been compliant with her insulin regiment (insulin regular Humulin U 500 70 Units TID and that there have been no changes in her diet. Patient also reports that yesterday she was seen by her PCP and diagnosed with a UTI and started on amoxicillin. Patient endorses increased urinary frequency and urgency x 1 day. Patient also reports that she frequently has nausea and vomiting due to her gastroparesis but feels this has been worse over the past 3 weeks. Patient denies shortness of breath, chest pain, fever, chills, cough, cold symptoms, lightheadedness, dizziness, hematuria or flank pain. Past Medical History gastroparesis diabetes peripheral neuropathy depression htn Past Surgical History LEEP x2 Laparoscopy with lysis of adhesions on two prior occasions Laparoscopic cholecystectomy EGD/colonoscopy (04/14) with Dr. Luciano --> gastritis, esophagitis (?julia esophagitis), hiatal hernia, poor prep, small internal hemorrhoids. Pathology consistent with chemical gastropathy, moderate to severe acute suppurative esophagitis (fungal stain is negative and viral inclusions are not observed), biopsy from descending colon with features suggestive of collagenous colitis. 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 Pt underwent division of median arcuate ligament today with Dr. Soares and Dr. 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 No upper abdominal adhesions. EGD (04/28/17) performed by Dr. Leavitt- BOTOX injection 100 IU. Injected into pylorus NG tube placed by anesthesia. There was fair amount of residual food in stomach. Family History father has COPD Social History Denies etoh use Denies tobacco use DS: Diagnosis - Discharge Diagnosis (1) Hyperglycemia Status: Acute DS: Medications - Discharge Medications Prescriptions: furosemide [Lasix] 20 mg PO DAILY 5 Days #5 tab insulin aspart U-100 [Novolog U-100 Insulin aspart] 10 unit SUB-Q TIDAC 30 Days ml insulin detemir U-100 [Levemir U-100 Insulin] 40 unit SUB-Q BID 30 Days ml potassium chloride [Klor-Con 10] 10 meq PO DAILY 5 Days #5 tab DS: Summary Hospital Course: This is a 52 year old female patient with a past medical history which includes DM uncontrolled, gastroparesis, peripheral neuropathy, depression and HTN. Patient reports that she was sent to the ER by her supervisor power reactor Dr. Bustamante due to uncontrolled DM with elevated blood glucose and concerns for urosepsis. Patient reports that for the past several weeks her glucose has been hard to control. States that over the past 5 days specifically her blood sugar has been in the 500s. On admission blood glucose was 424. Patient reports that she has been compliant with her insulin regiment (insulin regular Humulin U 500 70 Units TID) and that there have been no changes in her diet. Patient also reports that yesterday she was seen by her PCP and diagnosed with a UTI and started on amoxicillin. Patient endorses increased urinary frequency and urgency x 1 day. Patient also reports that she frequently has nausea and vomiting due to her gastroparesis but feels this has been worse over the past 3 weeks. DM uncontrolled gentle IV hydration Hemoglobin A1c 9.2 Levemir to 40 units BID,increase Novolog 10 units with each meal Accu checks ACHS with high dose SSI 1500 carolann diabetic diet. Bilateral upper and lower extremity edema - improved 2 D echocardiogram The left ventricular systolic function is hyperdynamic with an estimated ejection fraction in the range of 65- 70%. Normal left ventricular size. Wall thickness is normal. No regional wall motion abnormalities are present. The pulmonary valve is not well visualized. Lasix 80 mg IV x 1 now and in AM Renal US: 1. No evidence of hydronephrosis. 2. The echogenicity of the kidneys appears unremarkable. 3. Small cyst in left kidney. will continue lasix 20 mg PO daily x 5 days at DC repeat BMP in 1 week as an outpatient with results to PCP recommend patient follow up with nephrology after DC Possible UTI Patient start on Amoxicillin UA reviewed Continue Rocephin urine culture revealed 50,000 - 100,000 mixed gram positive emy likely contaminant Rocephin DC'd Vaginal Candidiasis De Alcholizer Lotrimin vaginal supp QHS x3 nights Gastroparesis continue home EES TID Patient concerned as she has an appointment at [facility] for her gastroparesis on Thursday02/23/18 patient vomited x 1 (02/20) supportive care encouraged smaller meals Depression Continue home duloxetine Hypokalemia - improved 20 meq potassium daily recheck in AM DVT prophylaxis Lovenox - Time Spent with Patient Total time spent providing and/or coordinating discharge services: Greater than 30 minutes - Quality: VTE Deep Vein Thrombosis/Pulmonary Embolism Present on Admission: No Exam Vital signs: Vital Signs 02/20/18 20:00 02/21/18 00:00 02/21/18 04:00 Temperature 98.1 F 97.8 F 97.9 F Pulse Rate 92 H 88 86 Respiratory Rate 20 Blood Pressure 144/76 H 131/70 113/69 Pulse Oximetry 96 94 L 95 02/21/18 08:00 02/21/18 12:00 02/21/18 16:00 Temperature 98.2 F 98.1 F 97.8 F Pulse Rate 84 90 91 H Respiratory Rate 18 Blood Pressure 131/65 117/67 113/61 Pulse Oximetry 94 L 94 L 94 L Intake & Output 02/20/18 02/21/18 02/21/18 18:59 06:59 18:59 Intake Total 920 / 920 480 / 480 Output Total 400 / 400 700 / 700 Balance 520 / 520 -220 / -220 Weight 124.3 kg Intake: Oral 920 / 920 480 / 480 Output: Urine 400 / 400 700 / 700 Other: Date of Last Bowel Movement 02/18/18 02/18/18 Narrative: GENERAL: This is a morbidly obese 52 year female patient, well-developed patient , in no apparent distress. CARDIOVASCULAR: Regular rate and rhythm RESPIRATORY: Difficult to auscultate due to body habitus. Clear to auscultation. Breath sounds equal bilaterally. GASTROINTESTINAL: Abdomen soft, non-tender, nondistended. Normal active bowel sounds MUSCULOSKELETAL: Extremities without clubbing, cyanosis. Bilateral upper and lower extremities 1+ edema NEURO: Alert & Oriented x4 to person, place, time, situation. Moves all ext x4 Results Procedures completed during hospitalization: None Labs on day of discharge: Labs from last 24 hours 02/21/18 02/21/18 02/21/18 16:02 11:30 07:09 WBC RBC Hgb Hct MCV MCH MCHC RDW Plt Count MPV Neut % (Auto) Lymph % (Auto) [place] % (Auto) Eos % (Auto) Baso % (Auto) Neut # (Auto) Lymph # (Auto) [place] # (Auto) Eos # (Auto) Baso # (Auto) WBC Differential Differential Comment Sodium Potassium Chloride Carbon Dioxide Anion Gap BUN Creatinine Estimated GFR POC Glucose 306 H 268 H 253 H Random Glucose Calcium Magnesium 02/21/18 02/21/18 02/20/18 06:04 06:04 20:54 WBC 8.7 RBC 4.45 Hgb 12.8 Hct 39.5 MCV 88.8 MCH 28.8 MCHC 32.4 RDW 15.2 Plt Count 268 MPV 7.7 Neut % (Auto) 59.9 Lymph % (Auto) 29.4 [place] % (Auto) 8.0 Eos % (Auto) 1.9 Baso % (Auto) 0.8 Neut # (Auto) 5.2 Lymph # (Auto) 2.6 [place] # (Auto) 0.7 Eos # (Auto) 0.2 Baso # (Auto) 0.1 WBC Differential . Differential Comment Auto diff final Sodium 141 Potassium 4.1 Chloride 105 Carbon Dioxide 29.3 Anion Gap 7 BUN 7 Creatinine 0.80 Estimated GFR 76 L POC Glucose 309 H Random Glucose 236 H Calcium 8.6 Magnesium 1.9 - Impressions ITS Impressions Abdomen X-Ray 02/16/18 00:00 CONCLUSION: No findings to indicate bowel obstruction. Mild gaseous distention of the sigmoid and moderate amount of stool within the ascending colon and proximal transverse colon. Chest X-Ray 02/16/18 11:31 CONCLUSION: No active disease. Abdomen/Bladder Ultrasound 02/19/18 00:00 CONCLUSION: 1. No evidence of hydronephrosis. 2. The echogenicity of the kidneys appears unremarkable. 3. Small cyst in left kidney. <Tyson Sapp - Last Filed: 02/23/18 11:11> Date of admission: 02/16/18 17:50 Primary care physician: Manisha Estrada MD DS: Summary Hospital Course: Patient examined. Assessment and plan formulated with Lorie Sesay PA-C. I agree with the above. - Time Spent with Patient Total time spent providing and/or coordinating discharge services: Results - Impressions ITS Impressions Abdomen X-Ray 02/16/18 00:00 CONCLUSION: No findings to indicate bowel obstruction. Mild gaseous distention of the sigmoid and moderate amount of stool within the ascending colon and proximal transverse colon. Chest X-Ray 02/16/18 11:31 CONCLUSION: No active disease. Abdomen/Bladder Ultrasound 02/19/18 00:00 CONCLUSION: 1. No evidence of hydronephrosis. 2. The echogenicity of the kidneys appears unremarkable. 3. Small cyst in left kidney. Discharge Plan - Discharge Order Discharge Orders: Discharge Order (Routine); Ordered 02/21/18 Ordered By: Lorie Sesay - Discharge Details Anticipated Discharge Date: 02/21/18 - Physicians Team Primary Care Provider: Manisha Estrada Attending Provider: Tyson Sapp
== END 2018-02-21 21:25 | disposition home or self-care (01) ==
LOC: NEPC 10:32 → NEDA 10:32 → NEPGCP 17:44 → H7ONC 02-18 13:57 → N04 02-19 16:28
PROVIDERS: ADMIT Hospitalist; ATTEND Hospitalist

== ENCOUNTER 2018-03-02 17:50 | Observation (INO) ==
[2018-03-02] MEDS ORDERED: Pantoprazole Inj 40 MG Vial IV.PUSH ONE (19:26)
[2018-03-02] MEDS ORDERED: Sod Chloride 0.9% Inj 1,000 ML IV.SIG ONE (19:26)
[2018-03-02] MEDS ORDERED: Morphine Inj 4 MG/ML Vial IV.PUSH ONE (19:26)
--- NOTE | 2018-03-02 19:45 | ED ---
HPI General Chief complaint: Nausea/Vomiting/Diarrhea Stated complaint: n/v/d started today Time Seen by Provider: 03/02/18 19:26 History of Present Illness HPI Narrative: 52-year-old female with a past medical history of diabetes type 1 , gastroparesis, hypertension presents to the emergency room complaining of nausea, vomiting, abdominal pain, diarrhea for the last 7 days. Patient has been out of her gastroparesis medication erythromycin in an attempt to wean herself off and retested. Patient had several episodes of vomiting up to 15 episodes a day. Patient complains of generalized weakness, chills, dry mouth, diffuse abdominal pain and dizziness. Patient denies hematemesis, rectal bleeding, chest pain, shortness of breath, cough, alcohol abuse or drugs. Related Data Home Medications Medication Instructions Recorded Confirmed buspirone 5 mg PO TID 01/31/18 02/16/18 carvedilol 6.25 mg PO BID 01/31/18 03/02/18 pregabalin [Lyrica] 75 mg PO TID 01/31/18 03/02/18 tramadol 50 mg PO Q6HR PRN 01/31/18 03/02/18 duloxetine [Cymbalta] 60 mg PO HS 02/16/18 03/02/18 insulin regular hum U-500 conc 60 unit SUB-Q TIDWM 02/16/18 03/02/18 [Humulin R U-500 (Conc) Kwikpen] promethazine 12.5 mg PO Q6H PRN 02/16/18 03/02/18 rosuvastatin 20 mg PO HS 02/16/18 03/02/18 Allergies Allergy/AdvReac Type Severity Reaction Status Date / Time gabapentin Allergy Severe AMNESIA Verified 03/02/18 17:56 Sulfa (Sulfonamide Allergy Severe BREATHING Verified 03/02/18 17:56 Antibiotics) DIFFICULTIES Review of Systems Constitutional Denies fever(s) Eyes Denies change in vision ENT Denies headache(s) and Denies nasal congestion Cardiovascular Denies chest pain Respiratory Denies dyspnea Gastrointestinal Reports abdominal pain, Reports change in bowel habits, Reports cramping, Reports diarrhea, Reports nausea and Reports vomiting Genitourinary Denies difficulty voiding Musculoskeletal Denies myalgias Integumentary/Breasts Denies rash Neurologic Denies headache(s) Psychiatric Denies depression Endocrine Denies polyuria Hematologic/Lymphatic Denies easy bruising [facility] Medical History Medical History Chronic abdominal pain (Acute) Diabetes (Acute) Edema (Acute) Gastroparesis (Acute) Hypertension (Acute) Surgical History Surgical History History of delivery (Acute) History of cholecystectomy (Acute) Social History Social History Substance History: No History of Abuse Second Hand Smoke Exposure: No Smoking Status: Former smoker Tobacco Type: Cigarettes How Often Do You Have a Drink Containing Alcohol: Never Recent Travel in [facility] within the Last 8 Weeks: No Recent Out of Country Travel within the Last 8 Weeks: No Exam Narrative Exam Narrative: GENERAL: Patient is alert and oriented -3 SKIN: Focused skin assessment warm/dry. HEAD: Atraumatic. Normocephalic. EYES: Pupils equal and round. No scleral icterus. No injection or drainage. ENT: No nasal bleeding or discharge. Dry membranes pink and moist. NECK: Trachea midline. No JVD. CARDIOVASCULAR: Regular rate and rhythm. No murmur appreciated. RESPIRATORY: No accessory muscle use. Clear to auscultation. Breath sounds equal bilaterally. GASTROINTESTINAL: Abdomen soft, diffuse abdominal tenderness without guarding, nondistended. Hepatic and splenic margins not palpable. MUSCULOSKELETAL: No obvious deformities. No clubbing. No cyanosis. No edema. NEUROLOGICAL: Awake and alert. No obvious cranial nerve deficits. Motor grossly within normal limits. Normal speech. PSYCHIATRIC: Appropriate mood and affect; insight and judgment normal. Course Initial Documented Vital Signs Temperature 98.2 F 03/02/18 17:57 Pulse Rate 80 03/02/18 17:57 Respiratory Rate 18 03/02/18 17:57 Blood Pressure 161/70 H 03/02/18 17:57 Pulse Oximetry 95 03/02/18 17:57 Last Documented Vital Signs Temperature 98.1 F 03/03/18 01:19 Pulse Rate 108 H 03/03/18 01:19 Respiratory Rate 20 03/03/18 01:19 Blood Pressure 158/70 H 03/03/18 01:19 Pulse Oximetry 93 L 03/03/18 01:19 Medical Decision Making MDM Narrative Medical Screen Exam Complete: Yes Emergency Medical Condition: Yes Lab Data Result diagrams: 03/02/18 20:06 03/02/18 20:06 Lab Results 03/02/18 03/02/18 03/02/18 Range/Units 19:44 20:06 20:06 CBC w Diff Auto diff final WBC 5.9 (4.0-11.0) th/mm3 RBC 4.75 (4.00-5.30) mil/mm3 Hgb 13.6 (11.6-15.3) gm/dL Hct 41.0 (35.0-46.0) % MCV 86.3 (80.0-100.0) fL MCH 28.5 (27.0-34.0) pg MCHC 33.1 (32.0-36.0) % RDW 13.7 (11.6-17.2) % Plt Count 298 (150-450) th/mm3 MPV 7.1 (7.0-11.0) fL Neut % (Auto) 80.6 H (16.0-70.0) % Lymph % (Auto) 10.4 (9.0-44.0) % [place] % (Auto) 7.5 (0.0-8.0) % Eos % (Auto) 1.1 (0.0-4.0) % Baso % (Auto) 0.4 (0.0-2.0) % Neut # (Auto) 4.8 (1.8-7.7) th/mm3 Lymph # (Auto) 0.6 L (1.0-4.8) th/mm3 [place] # (Auto) 0.4 (0.0-0.9) th/mm3 Eos # (Auto) 0.1 (0.0-0.4) th/mm3 Baso # (Auto) 0.0 (0.0-0.2) th/mm3 WBC Differential . Differential Comment . Sodium 135 L (136-145) meq/L Potassium 3.1 L (3.5-5.1) meq/L Chloride 98 (98-107) meq/L Carbon Dioxide 30.6 (21.0-32.0) meq/L Anion Gap 6 (5-15) meq/L BUN 10 (7-18) mg/dL Creatinine 0.80 (0.50-1.00) mg/dL Estimated GFR 76 L (>89) mL/min POC Glucose 305 H (68-110) mg/dl Random Glucose 292 H (74-106) mg/dL Calcium 8.2 L (8.5-10.1) mg/dL Total Bilirubin 1.3 H (0.2-1.0) mg/dL AST 15 (15-37) U/L ALT 22 (10-53) U/L Alkaline Phosphatase 87 (45-117) U/L Total Protein 6.7 (6.4-8.2) g/dL Albumin 2.8 L (3.4-5.0) g/dL Lipase 102 (73-393) U/L Beta HCG, Qual Less than 1.00 (0-5) mIU/mL Urine Color (Yellw/Straw) Urine Clarity (Clear) Urine pH (5.0-8.5) Ur Specific [place] (1.002-1.035) Urine Protein (Neg-Trace) mg/dL Urine Glucose (UA) (Negative) mg/dL Urine Ketones (Negative) mg/dL Urine Occult Blood (Negative) Urine Nitrate (Negative) Urine Bilirubin (Negative) Urine Urobilinogen (Less than 2) mg/dL Ur Leukocyte Esterase (Negative) Urine RBC (0-3) /hpf Urine WBC (0-5) /hpf Ur Squamous Epith Cells (0-5) /hpf Micro UA Comment Ur Microscopic Review Urine Culture Comments 03/02/18 03/02/18 03/03/18 Range/Units 22:00 23:40 02:12 CBC w Diff WBC (4.0-11.0) th/mm3 RBC (4.00-5.30) mil/mm3 Hgb (11.6-15.3) gm/dL Hct (35.0-46.0) % MCV (80.0-100.0) fL MCH (27.0-34.0) pg MCHC (32.0-36.0) % RDW (11.6-17.2) % Plt Count (150-450) th/mm3 MPV (7.0-11.0) fL Neut % (Auto) (16.0-70.0) % Lymph % (Auto) (9.0-44.0) % [place] % (Auto) (0.0-8.0) % Eos % (Auto) (0.0-4.0) % Baso % (Auto) (0.0-2.0) % Neut # (Auto) (1.8-7.7) th/mm3 Lymph # (Auto) (1.0-4.8) th/mm3 [place] # (Auto) (0.0-0.9) th/mm3 Eos # (Auto) (0.0-0.4) th/mm3 Baso # (Auto) (0.0-0.2) th/mm3 WBC Differential Differential Comment Sodium (136-145) meq/L Potassium (3.5-5.1) meq/L Chloride (98-107) meq/L Carbon Dioxide (21.0-32.0) meq/L Anion Gap (5-15) meq/L BUN (7-18) mg/dL Creatinine (0.50-1.00) mg/dL Estimated GFR (>89) mL/min POC Glucose 264 H 272 H (68-110) mg/dl Random Glucose (74-106) mg/dL Calcium (8.5-10.1) mg/dL Total Bilirubin (0.2-1.0) mg/dL AST (15-37) U/L ALT (10-53) U/L Alkaline Phosphatase (45-117) U/L Total Protein (6.4-8.2) g/dL Albumin (3.4-5.0) g/dL Lipase (73-393) U/L Beta HCG, Qual (0-5) mIU/mL Urine Color Yellow (Yellw/Straw) Urine Clarity Clear (Clear) Urine pH 5.5 (5.0-8.5) Ur Specific [place] Less/equal 1.005 (1.002-1.035) Urine Protein Trace (Neg-Trace) mg/dL Urine Glucose (UA) 250 H (Negative) mg/dL Urine Ketones 40 H (Negative) mg/dL Urine Occult Blood Negative (Negative) Urine Nitrate Negative (Negative) Urine Bilirubin Negative (Negative) Urine Urobilinogen 0.2 (Less than 2) mg/dL Ur Leukocyte Esterase Negative (Negative) Urine RBC 0-3 (0-3) /hpf Urine WBC 0-5 (0-5) /hpf Ur Squamous Epith Cells 6-10 H (0-5) /hpf Micro UA Comment Culture not ind Ur Microscopic Review Microscopic reviewed Urine Culture Comments Culture not ind Imaging Data Radiologist's impression: Abdomen/Pelvis CT 03/02/18 19:26 CONCLUSION: 1. Nonspecific mesenteric congestion. 2. Stable left renal cyst measuring 16 mm. Discharge Plan Discharge Disposition Patient Disposition: 02 Transfer to [facility] Discharge Condition Condition: Fair Discharge Details Diagnosis: Gastroparesis, Hypokalemia, Intractable vomiting Physicians Team ED Provider: Joe Lofton Primary Care Provider: Manisha Estrada Attending Provider: Heather Velarde Status ED Status: Left Department Discharge Information Discharge Date/Time: 03/03/18 00:58
[2018-03-02 20:14] LABS: Baso % (Auto) 0.4 % (0.0-2.0); Eos # (Auto) 0.1 th/mm3 (0.0-0.4); Eos % (Auto) 1.1 % (0.0-4.0); Hemoglobin 13.6 gm/dL (11.6-15.3); Lymph # (Auto) 0.6 th/mm3 (1.0-4.8); Lymph % (Auto) 10.4 % (9.0-44.0); Mean Corpuscular HGB Conc 33.1 % (32.0-36.0); Mean Corpuscular Hemoglobin 28.5 pg (27.0-34.0); Mean Corpuscular Volume 86.3 fL (80.0-100.0); Mean Platelet Volume 7.1 fL (7.0-11.0); Mono # (Auto) 0.4 th/mm3 (0.0-0.9); Mono % (Auto) 7.5 % (0.0-8.0); Neut # (Auto) 4.8 th/mm3 (1.8-7.7); Neut % (Auto) 80.6 % (16.0-70.0); Platelet Count 298 th/mm3 (150-450); Red Blood Count 4.75 mil/mm3 (4.00-5.30); Red Cell Distribution Width 13.7 % (11.6-17.2); White Blood Count 5.9 th/mm3 (4.0-11.0)
[2018-03-02 20:22] LABS: Chloride 98 meq/L (98-107); Potassium 3.1 meq/L (3.5-5.1); Sodium 135 meq/L (136-145)
[2018-03-02 20:25] LABS: Calcium 8.2 mg/dL (8.5-10.1)
[2018-03-02 20:26] LABS: Albumin 2.8 g/dL (3.4-5.0); Anion Gap 6 meq/L (5-15); Blood Urea Nitrogen 10 mg/dL (7-18); Carbon Dioxide 30.6 meq/L (21.0-32.0); Glucose,Random 292 mg/dL (74-106); Lipase 102 U/L (73-393)
[2018-03-02 20:29] LABS: Alanine Aminotransferase 22 U/L (10-53); Aspartate Aminotransferase 15 U/L (15-37); Glomerular Filtration Rate 76 mL/min (>89)
[2018-03-02 20:32] LABS: Alkaline Phosphatase 87 U/L (45-117); Total Protein 6.7 g/dL (6.4-8.2)
--- NOTE | 2018-03-02 20:47 | CT ---
EXAM DATE: 03/02/2018 8:40 PM EDT AGE/SEX: 52 years / Female INDICATIONS: Abdominal pain. Nausea. Vomiting. Diarrhea. CLINICAL DATA: This is the patient's initial encounter. Patient reports that signs and symptoms have been present for 1 week and indicates a pain score of 9/10. MEDICAL/SURGICAL HISTORY: Diabetes. Gastroparesis. Hypertension. section. Cholecyst ectomy. ORAL CONTRAST: No oral contrast ingested. RADIATION DOSE: 22.38 CTDI (mGy) COMPARISON: . TECHNIQUE: Multiple contiguous axial images were obtained through the abdomen and pelvis following b olus infusion of 100 ml Omnipaque 350 (iohexol) nonionic water-soluble contrast as a single exam do se. No oral contrast ingested. Using automated exposure control and adjustment of the mA and/or kV a ccording to patient size, radiation dose was kept as low as reasonably achievable to obtain optimal d iagnostic quality images. DICOM format image data is available electronically for review and compari son. FINDINGS: Lower Lungs: The visualized lower lungs are clear. Liver: The liver has a homogeneous density without space-occupying lesion. There is no dilation of th e biliary tree. The patient is status post cholecystectomy. Spleen: Homogeneous density without enlargement. Pancreas: Unremarkable without mass or calcification. Kidneys: Normal in size and shape. No evidence of mass or hydronephrosis. There is a stable left kelly al cyst measuring 16 mm. Adrenal Glands: Unremarkable. Aorta: The aorta and proximal iliac vessels are grossly unremarkable without aneurysmal dilation. Bowel/Mesentery: Nonspecific mesenteric congestion is noted. The bowel loops are grossly unremarkabl e. The cecum and sigmoid colon have a normal configuration. Abdominal Wall: Intact. Retroperitoneum: No evidence of adenopathy in the retrocrural, para-aortic, or deep pelvic regions. Bladder: Contours are smooth. Reproductive Organs: No abnormal masses or calcifications seen. Inguinal: The inguinal region is unremarkable without evidence of adenopathy. Bony Structures: Unremarkable. CONCLUSION: 1. Nonspecific mesenteric congestion. 2. Stable left renal cyst measuring 16 mm. Electronically signed by: jJ Parks MD 03/02/2018 8:46 PM EDT
[2018-03-02] MEDS ORDERED: Potassium Chloride Inj 40 MEQ in Sodium Chloride 0.45 % Inj 1,000 ML IV.CONT SCH (21:00)
[2018-03-02] MEDS ORDERED: Potassium Chloride Inj 10 MEQ in Sod Chloride 0.9% Inj 1,000 ML IV.CONT SCH (22:00)
[2018-03-02] MEDS ORDERED: Potassium Chloride Inj 10 MEQ in Sod Chloride 0.9% Inj 1,000 ML IV.CONT ONE (22:13)
[2018-03-02] MEDS ORDERED: Bisacodyl 10 MG Supp RECTAL PRN (22:22)
[2018-03-02] MEDS ORDERED: Naloxone Inj 0.4 MG/ML Vial IV.PUSH PRN (22:22)
[2018-03-02 22:37] LABS: Bilirubin,Urine Negative (Negative); Color,Urine Yellow (Yellw/Straw); Glucose,Urine (UA) 250 mg/dL (Negative); Leukocyte Esterase,Urine Negative (Negative); Nitrite,Urine Negative (Negative); PH,Urine 5.5 (5.0-8.5); Specific Gravity,Urine Less/Equal 1.005 (1.002-1.035); Urobilinogen,Urine 0.2 mg/dL (Less than 2)
[2018-03-02 22:41] LABS: Clarity,Urine Clear (Clear)
[2018-03-02 22:42] LABS: RBC,Urine 0-3 /hpf (0-3); WBC,Urine 0-5 /hpf (0-5)
[2018-03-02] MEDS ORDERED: Morphine Inj 4 MG/ML Vial IV.PUSH PRN (22:47)
[2018-03-02] MEDS ORDERED: Dextrose 50% in Water 50 ML Vial IV.PUSH PRN (22:57)
[2018-03-03] MEDS: Enoxaparin Inj 40 MG/0.4 ML Syringe SQ SCH ×2 (00:39→21:47)
[2018-03-03] MEDS: Temazepam 15 MG Capsule PO PRN ×2 (02:05→21:47)
[2018-03-03] MEDS: Insulin NovoLOG Aspart Correctional Sugar Inj SQ SCH ×5 (02:20→21:49)
[2018-03-03 07:20] LABS: Anion Gap 8 meq/L (5-15); Blood Urea Nitrogen 6 mg/dL (7-18); Calcium 7.3 mg/dL (8.5-10.1); Carbon Dioxide 27.6 meq/L (21.0-32.0); Chloride 103 meq/L (98-107); Glomerular Filtration Rate Greater Than 89 mL/min (>89); Glucose,Random 271 mg/dL (74-106); Sodium 139 meq/L (136-145)
[2018-03-03 07:27] LABS: Potassium 2.9 meq/L (3.5-5.1)
[2018-03-03] MEDS: Pregabalin 75 MG Capsule PO SCH ×3 (08:25→17:04)
[2018-03-03] MEDS: Carvedilol 6.25 MG Tablet PO SCH ×2 (08:25→21:46)
[2018-03-03] MEDS: Potassium Chlor 10 mEq Premix 10 MEQ/100 ML PIGGYBACK IV.SIG SCH ×6 (08:53→14:37)
[2018-03-03] MEDS ORDERED: Potassium Chlor 20 mEq Premix 20 MEQ/100 ML PIGGYBACK IV.SIG SCH (10:18)
--- NOTE | 2018-03-03 10:43 | P.HPFP ---
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 She is unable to eat much. Patient does follow with GI Dr. Luciano and has had numerous EGDs including Botox injection one year ago. Patient was seen 5 days ago in the GIs office. She had been seen in [facility] for gastroparesis recently and was taken off her Reglan and erythromycin in order to have a 4 hour gastric emptying study. Patient states her symptoms have worsened since then. She has also been referred him to general surgery for consideration of bariatric surgery for obesity. Currently the patient is not feeling better and continues with epigastric and left upper quadrant abdominal pain which is constant, 5 out of 10, no palliative or provocative factors. - Diagnosis (1) Intractable epigastric abdominal pain (2) GERD (gastroesophageal reflux disease) (3) Gastroparesis (4) Hypertension (5) Type 2 diabetes mellitus with diabetic neuropathy (6) Hypokalemia due to inadequate potassium intake [facility] - History History Provided By: Patient, Medical Record - Medical History Medical History: Medical History (Last Updated 03/03/18 @ 10:39 by Jacqueline Gee MD) Chronic epigastric pain Depression FH: cholecystectomy Frequent headaches Hiatal hernia History of pancreatitis Microscopic colitis Morbid obesity Neuropathy, diabetic Pedal edema Chronic abdominal pain Diabetes Gastroparesis Hypertension - Surgical History Surgical History: Surgical History (Last Updated 03/03/18 @ 10:39 by Jacqueline Gee MD) H/O LEEP History of laparoscopy History of delivery History of cholecystectomy - Family History Family History: Family History (Last Updated 03/03/18 @ 10:39 by Jacqueline Gee MD) Other Family history of COPD (chronic obstructive pulmonary disease) - Tobacco History Second Hand Smoke Exposure: No Tobacco Use In Past 30 Days: No Smoking Status: Former smoker Tobacco Type: Cigarettes - Alcohol History How Often Do You Have a Drink Containing Alcohol: Never - Substance Use History Substance History: No History of Abuse - Travel History Recent Travel in the [place] Within the Last 8 Weeks: No Recent Travel Out of the Country Within the Last 8 Weeks: No - Immunization History Tetanus Immunization: <5 Years Hx Influenza Vaccine This Season: Yes Medications and Allergies Active Medications: Active Medications Hydrocodone Bitart/Acetaminophen (Rosanky 5/325) 1 tab PO Q4H PRN PRN Reason: PAIN SCALE 3 TO 5 Hydrocodone Bitart/Acetaminophen (Rosanky 7.5/325) 1 tab PO Q4H PRN PRN Reason: PAIN SCALE 6 TO 10 Al Hydroxide/Mg Hydroxide (Milk Of Magnesia Liq) 30 ml PO Q12H PRN PRN Reason: Mild Constipation Atorvastatin Calcium (Lipitor) 40 mg PO HS HECTOR Bisacodyl (Dulcolax Supp) 10 mg RECTAL DAILY PRN PRN Reason: SEVERE CONSITIPATION Carvedilol (Coreg) 6.25 mg PO BID [facility] Last Admin: 03/03/18 08:25 Dose: 6.25 mg Dextrose (D50w Vial) 50 ml IV.PUSH UNSCH PRN PRN Reason: PER HYPOGLYCEMIA PROTOCOL Duloxetine HCl (Cymbalta) 60 mg PO HS HECTOR Enoxaparin Sodium (Lovenox Inj) 40 mg SQ Q24H [facility] Last Admin: 03/03/18 00:39 Dose: 40 mg Glucagon (Glucagon Inj) 1 mg OTHER PRN PRN PRN Reason: for Hypoglycemia Protocol Hydromorphone HCl (Dilaudid Pf Inj) 1 mg IV.PUSH Q6H PRN PRN Reason: PAIN 6-10;IF UNABLE TO TAKE PO Potassium Chloride/Sodium Chloride (Ns + Kcl 20 Meq Inj) 1,000 mls @ 100 mls/ hr IV.CONT .Q10H [facility] Last Admin: 03/03/18 08:53 Dose: 100 mls/hr Potassium Chloride (Kcl 20 Meq Premix Inj) 20 meq in 100 mls @ 50 mls/hr IV.SIG Q2H [facility] Stop: 03/03/18 14:17 Insulin Aspart (Novolog Insulin Correctional Sugar Inj) 0 unit SQ ACHS AND 3AM HECTOR; Protocol Last Admin: 03/03/18 08:25 Dose: 5 unit Insulin Detemir (Levemir Inj) 10 unit SQ BID HECTOR Lactulose (Lactulose Liq) 30 ml PO DAILY PRN PRN Reason: SEVERE CONSITIPATION Morphine Sulfate (Morphine Inj) 2 mg IV.PUSH Q3H PRN PRN Reason: PAIN 3-5; IF UABLE TO TAKE PO Naloxone HCl (Narcan Inj) 0.4 mg IV.PUSH UNSCH PRN PRN Reason: SEE LABEL COMMENTS Ondansetron HCl (Zofran Inj) 4 mg IV.PUSH Q6H PRN PRN Reason: NAUSEA OR VOMITING Last Admin: 03/03/18 02:05 Dose: 4 mg Pantoprazole Sodium (Protonix Inj) 40 mg IV.PUSH Q24H HECTOR Pregabalin (Lyrica) 75 mg PO TID HECTOR Last Admin: 03/03/18 08:25 Dose: 75 mg Sennosides (Senokot) 17.2 mg PO Q12H PRN PRN Reason: Moderate Constipation Sodium Chloride (Ns Flush) 2 ml IV.FLUSH PRN PRN PRN Reason: FLUSH AFTER USING IV ACCESS Last Admin: 03/03/18 02:05 Dose: 2 ml Temazepam (Restoril) 15 mg PO HS PRN PRN Reason: INSOMNIA Last Admin: 03/03/18 02:05 Dose: 15 mg Allergies Allergy/AdvReac Type Severity Reaction Status Date / Time gabapentin Allergy Severe AMNESIA Verified 03/02/18 17:56 Sulfa (Sulfonamide Allergy Severe BREATHING Verified 03/02/18 17:56 Antibiotics) DIFFICULTIES Home Medications Medication Instructions Recorded Confirmed Type buspirone 5 mg PO TID 01/31/18 02/16/18 History carvedilol 6.25 mg PO BID 01/31/18 03/02/18 History pregabalin [Lyrica] 75 mg PO TID 01/31/18 03/02/18 History tramadol 50 mg PO Q6HR PRN 01/31/18 03/02/18 History duloxetine [Cymbalta] 60 mg PO HS 02/16/18 03/02/18 History insulin regular hum U-500 conc 60 unit SUB-Q TIDWM 02/16/18 03/02/18 History [Humulin R U-500 (Conc) Kwikpen] promethazine 12.5 mg PO Q6H PRN 02/16/18 03/02/18 History rosuvastatin 20 mg PO HS 02/16/18 03/02/18 History Exam Vital signs: Vital Signs 03/02/18 17:57 03/02/18 19:27 03/02/18 20:46 Temperature 98.2 F Pulse Rate 80 114 H 110 H Respiratory Rate 18 26 H Blood Pressure 161/70 H 141/63 H Pulse Oximetry 95 95 95 03/03/18 00:34 03/03/18 01:19 03/03/18 08:00 Temperature 98.1 F 98.0 F Pulse Rate 113 H 108 H 93 H Respiratory Rate 20 20 18 Blood Pressure 141/67 H 158/70 H 133/67 Pulse Oximetry 95 93 L 96 Intake & Output 03/02/18 03/03/18 03/03/18 18:59 06:59 18:59 Intake Total 2245 / 2245 1000 / 1000 Balance 2245 / 2245 1000 / 1000 Weight 116 kg 118.2 kg Intake: IV 2004 1000 / 1000 NS + KCl 20 mEq Inj 1,000 ML @ 1000 / 1000 100 mls/hr IV.CONT .Q10H HECTOR Rx #:[id number] KCl Inj 10 MEQ In NS Inj 1,000 1005 / 1005 ML @ 1000 mls/hr IV.CONT .Q1H1M ONE Rx#:[id number] NS Inj 1,000 ML @ Wide Open IV. 1000 / 1000 SIG BOLUS ONE Rx#:[id number] Oral 240 / 240 Other: # Voids 1 Date of Last Bowel Movement 03/02/18 03/02/18 Weight On Admission 118.2 kg Narrative: Gen: obesity middle aged CF in NAD, laying in bed HEENT: NCAT, EOMI, no scleral icterus or injection Neck: supple no LAD CV: RRR, no murmurs Lungs: CTAB, norm resp effort Abdomen: +BS, +ttp epigastric, RUQ and LUQ, soft nondistended Ext: warm and dry, 1+ pitting pedal edema of calves and ankles Skin: warm and dry without rash Psych: normal insight, mood and affect Neuro: MAEW, face symmetric, normal speech Results - Labs Result diagrams: 03/02/18 20:06 03/03/18 06:20 Abnormal lab results 03/02/18 03/02/18 03/02/18 Range/Units 19:44 20:06 20:06 Neut % (Auto) 80.6 H (16.0-70.0) % Lymph # (Auto) 0.6 L (1.0-4.8) th/mm3 Sodium 135 L (136-145) meq/L Potassium 3.1 L (3.5-5.1) meq/L BUN (7-18) mg/dL Estimated GFR 76 L (>89) mL/min POC Glucose 305 H (68-110) mg/dl Random Glucose 292 H (74-106) mg/dL Calcium 8.2 L (8.5-10.1) mg/dL Prot Corrected Calcium (8.5-10.1) mg/dL Total Bilirubin 1.3 H (0.2-1.0) mg/dL Total Protein (6.4-8.2) g/dL Albumin 2.8 L (3.4-5.0) g/dL Urine Glucose (UA) (Negative) mg/dL Urine Ketones (Negative) mg/dL Ur Squamous Epith Cells (0-5) /hpf 03/02/18 03/02/18 03/03/18 Range/Units 22:00 23:40 02:12 Neut % (Auto) (16.0-70.0) % Lymph # (Auto) (1.0-4.8) th/mm3 Sodium (136-145) meq/L Potassium (3.5-5.1) meq/L BUN (7-18) mg/dL Estimated GFR (>89) mL/min POC Glucose 264 H 272 H (68-110) mg/dl Random Glucose (74-106) mg/dL Calcium (8.5-10.1) mg/dL Prot Corrected Calcium (8.5-10.1) mg/dL Total Bilirubin (0.2-1.0) mg/dL Total Protein (6.4-8.2) g/dL Albumin (3.4-5.0) g/dL Urine Glucose (UA) 250 H (Negative) mg/dL Urine Ketones 40 H (Negative) mg/dL Ur Squamous Epith Cells 6-10 H (0-5) /hpf 03/03/18 Range/Units 06:20 Neut % (Auto) (16.0-70.0) % Lymph # (Auto) (1.0-4.8) th/mm3 Sodium (136-145) meq/L Potassium 2.9 L* (3.5-5.1) meq/L BUN 6 L (7-18) mg/dL Estimated GFR (>89) mL/min POC Glucose (68-110) mg/dl Random Glucose 271 H (74-106) mg/dL Calcium 7.3 L* D (8.5-10.1) mg/dL Prot Corrected Calcium 7.9 L (8.5-10.1) mg/dL Total Bilirubin (0.2-1.0) mg/dL Total Protein 6.0 L D (6.4-8.2) g/dL Albumin (3.4-5.0) g/dL Urine Glucose (UA) (Negative) mg/dL Urine Ketones (Negative) mg/dL Ur Squamous Epith Cells (0-5) /hpf Short CBC 03/02/18 Range/Units 20:06 WBC 5.9 (4.0-11.0) th/mm3 Hgb 13.6 (11.6-15.3) gm/dL Hct 41.0 (35.0-46.0) % Plt Count 298 (150-450) th/mm3 BMP 03/02/18 03/03/18 20:06 06:20 Sodium 135 L 139 Potassium 3.1 L 2.9 L* Chloride 98 103 Carbon Dioxide 30.6 27.6 BUN 10 6 L Creatinine 0.80 0.59 Calcium 8.2 L 7.3 L* D Liver Function 03/02/18 Range/Units 20:06 Total Bilirubin 1.3 H (0.2-1.0) mg/dL AST 15 (15-37) U/L ALT 22 (10-53) U/L Alkaline Phosphatase 87 (45-117) U/L Albumin 2.8 L (3.4-5.0) g/dL Urine 03/02/18 Range/Units 22:00 Urine Color Yellow (Yellw/Straw) Urine Clarity Clear (Clear) Urine pH 5.5 (5.0-8.5) Ur Specific [place] Less/equal 1.005 (1.002-1.035) Urine Protein Trace (Neg-Trace) mg/dL Urine Glucose (UA) 250 H (Negative) mg/dL - Imaging Impressions Abdomen/Pelvis CT 03/02/18 19:26 CONCLUSION: 1. Nonspecific mesenteric congestion. 2. Stable left renal cyst measuring 16 mm. Caprini VTE Risk Assessment Caprini VTE Risk Assessment: Moderate/High Risk (score >= 2) Caprini Risk Assessment Model: Point Value = 1 Point Value = 2 Point Value = 3 Point Value = 5 Age 41-60 Minor surgery BMI > 25 kg/m2 Swollen legs Varicose veins or History of unexplained or recurrent spontaneous Oral contraceptives or hormone replacement Sepsis (< 1 month) Serious lung disease, including pneumonia (< 1 month) Abnormal pulmonary function Acute myocardial infarction Congestive heart failure (< 1 month) History of inflammatory bowel disease Medical patient at bed rest Age 61-74 Arthroscopic surgery Major open surgery (> 45 min) Laparoscopic surgery (> 45 min) Malignancy Confined to bed (> 72 hours) Immobilizing plaster cast Central venous access Age >= 75 History of VTE Family history of VTE Factor V Leiden Prothrombin [id number] Lupus anticoagulant Anticardiolipin antibodies Elevated serum homocysteine Heparin-induced thrombocytopenia Other congenital or acquired thrombophilia Stroke (< 1 month) Elective arthroplasty Hip, pelvis, or leg fracture Acute spinal cord injury (< 1 month) Prophylaxis Regimen: Total Risk Factor Score Risk Level Prophylaxis Regimen 0-1 Low Early ambulation 2 Moderate Order ONE of the following: *Sequential Compression Device (SCD) *Heparin 5000 units SQ BID 3-4 Higher Order ONE of the following medications: *Heparin 5000 units SQ TID *Enoxaparin/Lovenox 40 mg SQ daily (WT < 150 kg, CrCl > 30 mL/min) *Enoxaparin/Lovenox 30 mg SQ daily (WT < 150 kg, CrCl > 10-29 mL/min) *Enoxaparin/Lovenox 30 mg SQ BID (WT < 150 kg, CrCl > 30 mL/min) AND/OR *Sequential Compression Device (SCD) 5 or more Highest Order ONE of the following medications: *Heparin 5000 units SQ TID (Preferred with Epidurals) *Enoxaparin/Lovenox 40 mg SQ daily (WT < 150 kg, CrCl > 30 mL/min) *Enoxaparin/Lovenox 30 mg SQ daily (WT < 150 kg, CrCl > 10-29 mL/min) *Enoxaparin/Lovenox 30 mg SQ BID (WT < 150 kg, CrCl > 30 mL/min) AND *Sequential Compression Device (SCD) Assessment and Plan - Assessment (1) Intractable epigastric abdominal pain Code(s): R10.13 - Epigastric pain Status: Acute (2) GERD (gastroesophageal reflux disease) Code(s): K21.9 - Gastro-esophageal reflux disease without esophagitis Status: Acute (3) Gastroparesis Code(s): K31.84 - Gastroparesis Status: Acute (4) Hypertension Code(s): I10 - Essential (primary) hypertension Status: Acute (5) Type 2 diabetes mellitus with diabetic neuropathy Code(s): E11.40 - Type 2 diabetes mellitus with diabetic neuropathy, unspecified Status: Acute (6) Hypokalemia due to inadequate potassium intake Code(s): E87.6 - Hypokalemia Status: Acute - Assessment and Plan We will continue on IVF, potassium replacement, reglan and zofran IV. Consult to GI, consider restarting erythromycin. She is being followed up at [place] for the gastroparesis. Will resume the rest of her home medications. Lovenox for DVT px. H&P: Quality - VTE Deep Vein Thrombosis/Pulmonary Embolism Present on Admission: No
[2018-03-03] MEDS: Duloxetine 60 MG DR Capsule PO SCH (21:46)
[2018-03-03] MEDS: HYDROmorphone PF Inj 2 MG/ML Vial IV.PUSH PRN (21:47)
[2018-03-03] MEDS: Mag Sulf 1 gm/100 ml Premix 100 ML IV.SIG SCH ×2 (21:48→23:09)
[2018-03-03] MEDS: Pantoprazole Inj 40 MG Vial IV.PUSH SCH (21:49)
[2018-03-03] MEDS: Insulin Detemir Inj 1,000 UNIT/10 ML Vial SQ SCH (21:51)
[2018-03-04] MEDS: Enoxaparin Inj 40 MG/0.4 ML Syringe SQ SCH ×2 (00:26→23:33)
[2018-03-04] MEDS: Pantoprazole Inj 40 MG Vial IV.PUSH SCH ×2 (00:27→23:33)
[2018-03-04] MEDS: HYDROmorphone PF Inj 2 MG/ML Vial IV.PUSH PRN (03:45)
[2018-03-04] MEDS: Insulin NovoLOG Aspart Correctional Sugar Inj SQ SCH ×5 (03:45→20:25)
[2018-03-04 08:18] LABS: Chloride 104 meq/L (98-107); Potassium 3.4 meq/L (3.5-5.1); Sodium 139 meq/L (136-145)
[2018-03-04 08:21] LABS: Anion Gap 6 meq/L (5-15); Carbon Dioxide 28.7 meq/L (21.0-32.0); Glucose,Random 245 mg/dL (74-106)
[2018-03-04 08:39] LABS: Blood Urea Nitrogen 3 mg/dL (7-18); Glomerular Filtration Rate Greater Than 89 mL/min (>89); Magnesium 2.1 mg/dL (1.5-2.5)
[2018-03-04] MEDS: Pregabalin 75 MG Capsule PO SCH ×3 (08:57→17:08)
[2018-03-04] MEDS: Carvedilol 6.25 MG Tablet PO SCH ×2 (08:57→20:25)
[2018-03-04] MEDS: Insulin Detemir Inj 1,000 UNIT/10 ML Vial SQ SCH ×2 (08:58→20:25)
[2018-03-04] MEDS ORDERED: Acetaminophen 325 MG Tablet PO PRN (11:13)
--- NOTE | 2018-03-04 12:17 | P.PNFP ---
Subjective Interval history: Patient reports continued left upper quadrant abdominal pain. She had a bout of diarrhea this morning. One small emesis. Continued nausea. Mild headache. She feels she could eat some soup. Magnesium level was low last night, this was repleted IV as well as potassium. Mg level normal today, K 3.4. She took 20 meq PO of Kcl without vomiting. GI has not seen the patient yet. Results - Labs Result diagrams: 03/02/18 20:06 03/04/18 07:48 Abnormal lab results 03/03/18 03/03/18 03/04/18 Range/Units 16:46 21:18 03:33 Potassium (3.5-5.1) meq/L BUN (7-18) mg/dL POC Glucose 284 H 217 H 297 H (68-110) mg/dl Random Glucose (74-106) mg/dL Calcium (8.5-10.1) mg/dL 03/04/18 03/04/18 03/04/18 Range/Units 07:47 07:48 11:58 Potassium 3.4 L (3.5-5.1) meq/L BUN 3 L (7-18) mg/dL POC Glucose 240 H 226 H (68-110) mg/dl Random Glucose 245 H (74-106) mg/dL Calcium 8.0 L (8.5-10.1) mg/dL BMP 03/04/18 07:48 Sodium 139 Potassium 3.4 L Chloride 104 Carbon Dioxide 28.7 BUN 3 L Creatinine 0.54 Calcium 8.0 L Physical Exam Vital signs: Vital Signs 03/03/18 16:00 03/03/18 20:00 03/04/18 00:00 Temperature 97.6 F 97.8 F 97.7 F Pulse Rate 90 90 87 Respiratory Rate 18 20 20 Blood Pressure 141/65 H 124/58 L 141/75 H Pulse Oximetry 94 L 92 L 94 L 03/04/18 09:05 Temperature 96.4 F L Pulse Rate 73 Respiratory Rate 16 Blood Pressure 133/59 L Pulse Oximetry 98 Intake & Output 03/03/18 03/04/18 03/04/18 18:59 06:59 18:59 Intake Total 3120 / 3120 680 / 680 Balance 3120 / 3120 680 / 680 Weight 121.3 kg Intake: IV 2400 / 2400 200 / 200 NS + KCl 20 mEq Inj 1,000 ML @ 2000 / 2000 100 mls/hr IV.CONT .Q10H HECTOR Rx #:[id number] Magnesium Sulfate 1 gm/D5W 100 200 / 200 ml Premix 100 ML @ 100 mls/hr IV.SIG Q1H HECTOR Rx#:[id number] KCl 10 mEq Premix Inj 10 meq In 400 / 400 100 ml @ 100 mls/hr IV.SIG Q1H HECTOR Rx#:[id number] Oral 720 / 720 480 / 480 Other: # Voids 4 2 Date of Last Bowel Movement 03/03/18 03/03/18 # Bowel Movements 4 1 # [place] 4 Narrative: Gen: obesity middle aged CF in NAD, laying in bed HEENT: NCAT, EOMI, no scleral icterus or injection Neck: supple no LAD CV: RRR, no murmurs Lungs: CTAB, norm resp effort Abdomen: +BS, +ttp LUQ and less tender in epigastrium, soft nondistended Ext: warm and dry, 1+ pitting pedal edema of calves and ankles Skin: warm and dry without rash Psych: normal insight, mood and affect Neuro: MAEW, face symmetric, normal speech Assessment and Plan - Assessment (1) Intractable epigastric abdominal pain Code(s): R10.13 - Epigastric pain Status: Acute (2) GERD (gastroesophageal reflux disease) Code(s): K21.9 - Gastro-esophageal reflux disease without esophagitis Status: Acute (3) Gastroparesis Code(s): K31.84 - Gastroparesis Status: Acute (4) Hypertension Code(s): I10 - Essential (primary) hypertension Status: Acute (5) Type 2 diabetes mellitus with diabetic neuropathy Code(s): E11.40 - Type 2 diabetes mellitus with diabetic neuropathy, unspecified Status: Acute (6) Hypokalemia due to inadequate potassium intake Code(s): E87.6 - Hypokalemia Status: Acute - Assessment and Plan Advance diet to full liquid. Continue potassium replacement, reglan and zofran IV. GI will see her later today; I discussed with Dr. Ortega. Consider restarting erythromycin. She is being followed up at [facility] for the gastroparesis. Will resume the rest of her home medications. Lovenox for DVT px.
--- NOTE | 2018-03-04 13:07 | P.CONGI ---
History of Present Illness Consult date: 03/04/18 Consult reason: Left upper quadrant abdominal pain, uncontrolled nausea and vomiting Chief complaint: Intractable Vomiting, Hypokalemia History of Present Illness: This is a 52-year-old morbidly obese female who was admitted to the hospital on 03/02/2018 with symptoms of left upper quadrant abdominal pain, diarrhea for the past few weeks, nausea vomiting uncontrolled. Onset of symptoms worsening over the past week and continues with uncontrolled nausea and vomiting. Patient has a history of gastroparesis and has been treated with multiple medications which includes erythromycin, Reglan, Creon, and Bentyl. She was sent to the [facility] for continued evaluation several weeks ago and patient was taken off all of her medications. Patient immediately returned to the hospital with uncontrolled symptoms as well as left upper quadrant abdominal pain which is an 8 out of 10. Patient notes symptoms of constipation approximately 2 weeks ago and denies taking any type of laxatives and then starts with diarrhea stools without any aggregating or relieving factors. This could be related to IBS symptoms. CT scan shown on 828 showed nonspecific mesenteric congestion. Labs show current hemoglobin 13.6, bilirubin 1.3, and LFTs are normal. Patient notes dyspepsia with chronic symptoms greater than 5 years but is now on Protonix twice a day which seems to control her symptoms. EGD: An full workup was done back in May 2017 in the hospital setting. Chief symptoms uncontrolled at this time are patient's nausea and vomiting. Discussed with her EGD and colonoscopy but patient feels she cannot tolerate any colon prep at this time. Patient denies any family history of colon cancer, And no obvious bleeding and no obvious fever. <Damaris Bird - Last Filed: 03/04/18 12:51> Review of Systems All other systems reviewed negative except as stated in HPI <Damaris Bird - Last Filed: 03/04/18 12:51> PMFSH - History History Provided By: Patient, Medical Record - Medical History Medical History: Medical History (Last Updated 03/03/18 @ 10:39 by Jacqueline Gee MD) Chronic epigastric pain Depression FH: cholecystectomy Frequent headaches Hiatal hernia History of pancreatitis Microscopic colitis Morbid obesity Neuropathy, diabetic Pedal edema Chronic abdominal pain Diabetes Gastroparesis Hypertension - Surgical History Surgical History: Surgical History (Last Updated 03/03/18 @ 10:39 by Jacqueline Gee MD) H/O LEEP History of laparoscopy History of delivery History of cholecystectomy - Family History Family History: Family History (Last Updated 03/03/18 @ 10:39 by Jacqueline Gee MD) Other Family history of COPD (chronic obstructive pulmonary disease) - Tobacco History Second Hand Smoke Exposure: No Tobacco Use In Past 30 Days: No Smoking Status: Former smoker Tobacco Type: Cigarettes - Alcohol History How Often Do You Have a Drink Containing Alcohol: Never - Substance Use History Substance History: No History of Abuse - Travel History Recent Travel in the [place] Within the Last 8 Weeks: No Recent Travel Out of the Country Within the Last 8 Weeks: No - Immunization History Tetanus Immunization: <5 Years Hx Influenza Vaccine This Season: Yes <Damaris Bird - Last Filed: 03/04/18 12:51> - Medical History Medical History: Medical History (Last Updated 03/03/18 @ 10:39 by Jacqueline Gee MD) Chronic epigastric pain Depression FH: cholecystectomy Frequent headaches Hiatal hernia History of pancreatitis Microscopic colitis Morbid obesity Neuropathy, diabetic Pedal edema Chronic abdominal pain Diabetes Gastroparesis Hypertension - Surgical History Surgical History: Surgical History (Last Updated 03/03/18 @ 10:39 by Jacqueilne Gee MD) H/O LEEP History of laparoscopy History of delivery History of cholecystectomy - Family History Family History: Family History (Last Updated 03/03/18 @ 10:39 by Jacqueline Gee MD) Other Family history of COPD (chronic obstructive pulmonary disease) <JordanAlaynakatja - Last Filed: 03/04/18 19:40> Medications and Allergies Active Medications: Active Medications Acetaminophen (Tylenol) 650 mg PO Q6H PRN PRN Reason: HEADACHE Last Admin: 03/04/18 12:00 Dose: 650 mg Hydrocodone Bitart/Acetaminophen ([place] 5/325) 1 tab PO Q4H PRN PRN Reason: PAIN SCALE 3 TO 5 Hydrocodone Bitart/Acetaminophen ([place] 7.5/325) 1 tab PO Q4H PRN PRN Reason: PAIN SCALE 6 TO 10 Last Admin: 03/03/18 17:04 Dose: 1 tab Al Hydroxide/Mg Hydroxide (Milk Of Magnesia Liq) 30 ml PO Q12H PRN PRN Reason: Mild Constipation Atorvastatin Calcium (Lipitor) 40 mg PO HS [facility] Last Admin: 03/03/18 21:46 Dose: 40 mg Bisacodyl (Dulcolax Supp) 10 mg RECTAL DAILY PRN PRN Reason: SEVERE CONSITIPATION Carvedilol (Coreg) 6.25 mg PO BID [facility] Last Admin: 03/04/18 08:57 Dose: 6.25 mg Dextrose (D50w Vial) 50 ml IV.PUSH UNSCH PRN PRN Reason: PER HYPOGLYCEMIA PROTOCOL Duloxetine HCl (Cymbalta) 60 mg PO HS [facility] Last Admin: 03/03/18 21:46 Dose: 60 mg Enoxaparin Sodium (Lovenox Inj) 40 mg SQ Q24H [facility] Last Admin: 03/04/18 00:26 Dose: Not Given Glucagon (Glucagon Inj) 1 mg OTHER PRN PRN PRN Reason: for Hypoglycemia Protocol Hydromorphone HCl (Dilaudid Pf Inj) 1 mg IV.PUSH Q6H PRN PRN Reason: PAIN 6-10;IF UNABLE TO TAKE PO Last Admin: 03/04/18 03:45 Dose: 1 mg Insulin Aspart (Novolog Insulin Correctional Sugar Inj) 0 unit SQ ACHS AND 3AM HECTOR; Protocol Last Admin: 03/04/18 12:14 Dose: 3 unit Insulin Detemir (Levemir Inj) 10 unit SQ BID [facility] Last Admin: 03/04/18 08:58 Dose: 10 unit Lactulose (Lactulose Liq) 30 ml PO DAILY PRN PRN Reason: SEVERE CONSITIPATION Morphine Sulfate (Morphine Inj) 2 mg IV.PUSH Q3H PRN PRN Reason: PAIN 3-5; IF UABLE TO TAKE PO Naloxone HCl (Narcan Inj) 0.4 mg IV.PUSH UNSCH PRN PRN Reason: SEE LABEL COMMENTS Ondansetron HCl (Zofran Inj) 4 mg IV.PUSH Q6H PRN PRN Reason: NAUSEA OR VOMITING Last Admin: 03/04/18 08:58 Dose: 4 mg Pantoprazole Sodium (Protonix Inj) 40 mg IV.PUSH Q24H [facility] Last Admin: 03/04/18 00:27 Dose: Not Given Pregabalin (Lyrica) 75 mg PO TID [facility] Last Admin: 03/04/18 12:01 Dose: 75 mg Sennosides (Senokot) 17.2 mg PO Q12H PRN PRN Reason: Moderate Constipation Sodium Chloride (Ns Flush) 2 ml IV.FLUSH PRN PRN PRN Reason: FLUSH AFTER USING IV ACCESS Last Admin: 03/03/18 02:05 Dose: 2 ml Temazepam (Restoril) 15 mg PO HS PRN PRN Reason: INSOMNIA Last Admin: 03/03/18 21:47 Dose: 15 mg <Damaris Bidr M - Last Filed: 03/04/18 12:51> Active Medications: Active Medications Acetaminophen (Tylenol) 650 mg PO Q6H PRN PRN Reason: HEADACHE Last Admin: 03/04/18 12:00 Dose: 650 mg Hydrocodone Bitart/Acetaminophen ([place] 5/325) 1 tab PO Q4H PRN PRN Reason: PAIN SCALE 3 TO 5 Hydrocodone Bitart/Acetaminophen ([place] 7.5/325) 1 tab PO Q4H PRN PRN Reason: PAIN SCALE 6 TO 10 Last Admin: 03/03/18 17:04 Dose: 1 tab Al Hydroxide/Mg Hydroxide (Milk Of Magnesia Liq) 30 ml PO Q12H PRN PRN Reason: Mild Constipation Atorvastatin Calcium (Lipitor) 40 mg PO HS [facility] Last Admin: 03/03/18 21:46 Dose: 40 mg Bisacodyl (Dulcolax Supp) 10 mg RECTAL DAILY PRN PRN Reason: SEVERE CONSITIPATION Carvedilol (Coreg) 6.25 mg PO BID [facility] Last Admin: 03/04/18 08:57 Dose: 6.25 mg Dextrose (D50w Vial) 50 ml IV.PUSH UNSCH PRN PRN Reason: PER HYPOGLYCEMIA PROTOCOL Duloxetine HCl (Cymbalta) 60 mg PO HS [facility] Last Admin: 03/03/18 21:46 Dose: 60 mg Enoxaparin Sodium (Lovenox Inj) 40 mg SQ Q24H [facility] Last Admin: 03/04/18 00:26 Dose: Not Given Glucagon (Glucagon Inj) 1 mg OTHER PRN PRN PRN Reason: for Hypoglycemia Protocol Hydromorphone HCl (Dilaudid Pf Inj) 1 mg IV.PUSH Q6H PRN PRN Reason: PAIN 6-10;IF UNABLE TO TAKE PO Last Admin: 03/04/18 03:45 Dose: 1 mg Insulin Aspart (Novolog Insulin Correctional Sugar Inj) 0 unit SQ ACHS AND 3AM HECTOR; Protocol Last Admin: 03/04/18 17:09 Dose: 1 unit Insulin Detemir (Levemir Inj) 10 unit SQ BID [facility] Last Admin: 03/04/18 08:58 Dose: 10 unit Lactulose (Lactulose Liq) 30 ml PO DAILY PRN PRN Reason: SEVERE CONSITIPATION Metoclopramide HCl (Reglan) 10 mg PO ACHS [facility] Last Admin: 03/04/18 17:08 Dose: 10 mg Morphine Sulfate (Morphine Inj) 2 mg IV.PUSH Q3H PRN PRN Reason: PAIN 3-5; IF UABLE TO TAKE PO Naloxone HCl (Narcan Inj) 0.4 mg IV.PUSH UNSCH PRN PRN Reason: SEE LABEL COMMENTS Ondansetron HCl (Zofran Inj) 4 mg IV.PUSH Q6H PRN PRN Reason: NAUSEA OR VOMITING Last Admin: 03/04/18 08:58 Dose: 4 mg Pantoprazole Sodium (Protonix Inj) 40 mg IV.PUSH Q24H [facility] Last Admin: 03/04/18 00:27 Dose: Not Given Pregabalin (Lyrica) 75 mg PO TID [facility] Last Admin: 03/04/18 17:08 Dose: 75 mg Sennosides (Senokot) 17.2 mg PO Q12H PRN PRN Reason: Moderate Constipation Sodium Chloride (Ns Flush) 2 ml IV.FLUSH PRN PRN PRN Reason: FLUSH AFTER USING IV ACCESS Last Admin: 03/03/18 02:05 Dose: 2 ml Temazepam (Restoril) 15 mg PO HS PRN PRN Reason: INSOMNIA Last Admin: 03/03/18 21:47 Dose: 15 mg <Hemaidan,Ammar - Last Filed: 03/04/18 19:40> Allergies Allergy/AdvReac Type Severity Reaction Status Date / Time gabapentin Allergy Severe AMNESIA Verified 03/02/18 17:56 Sulfa (Sulfonamide Allergy Severe BREATHING Verified 03/02/18 17:56 Antibiotics) DIFFICULTIES Home Medications Medication Instructions Recorded Confirmed Type buspirone 5 mg PO TID 01/31/18 02/16/18 History carvedilol 6.25 mg PO BID 01/31/18 03/02/18 History pregabalin [Lyrica] 75 mg PO TID 01/31/18 03/02/18 History tramadol 50 mg PO Q6HR PRN 01/31/18 03/02/18 History duloxetine [Cymbalta] 60 mg PO HS 02/16/18 03/02/18 History insulin regular hum U-500 conc 60 unit SUB-Q TIDWM 02/16/18 03/02/18 History [Humulin R U-500 (Conc) Kwikpen] promethazine 12.5 mg PO Q6H PRN 02/16/18 03/02/18 History rosuvastatin 20 mg PO HS 02/16/18 03/02/18 History Exam Vital signs: Vital Signs 03/03/18 16:00 03/03/18 20:00 03/04/18 00:00 Temperature 97.6 F 97.8 F 97.7 F Pulse Rate 90 90 87 Respiratory Rate 18 20 20 Blood Pressure 141/65 H 124/58 L 141/75 H Pulse Oximetry 94 L 92 L 94 L 03/04/18 09:05 Temperature 96.4 F L Pulse Rate 73 Respiratory Rate 16 Blood Pressure 133/59 L Pulse Oximetry 98 Intake & Output 03/03/18 03/04/18 03/04/18 18:59 06:59 18:59 Intake Total 3120 / 3120 680 / 680 Balance 3120 / 3120 680 / 680 Weight 121.3 kg Intake: IV 2400 / 2400 200 / 200 NS + KCl 20 mEq Inj 1,000 ML @ 2000 / 2000 100 mls/hr IV.CONT .Q10H [facility]ECTOR Rx #:[id number] Magnesium Sulfate 1 gm/D5W 100 200 / 200 ml Premix 100 ML @ 100 mls/hr IV.SIG Q1H HECTOR Rx#:[id number] KCl 10 mEq Premix Inj 10 meq In 400 / 400 100 ml @ 100 mls/hr IV.SIG Q1H HECTOR Rx#:[id number] Oral 720 / 720 480 / 480 Other: # Voids 4 2 Date of Last Bowel Movement 03/03/18 03/03/18 # Bowel Movements 4 1 # Emeses 4 - Constitutional mild distress, morbidly obese - Routine HEENT Exam Head: Present: normocephalic ENT: Present: mucous membranes moist - Routine Neck Exam Present: supple - Routine Respiratory Exam Present: accessory muscle use (Even, unlabored at rest) - Routine Cardiovascular Exam Present: S1, S2 - Routine Abdominal Exam Present: soft (Obese, round, soft bowel sounds, left upper quadrant discomfort) - Routine Skin Exam Present: intact - Routine Neurological Exam Present: alert (Answer simple questions appropriately) <Damaris Bird - Last Filed: 03/04/18 12:51> Vital signs: Vital Signs 03/03/18 20:00 03/04/18 00:00 03/04/18 09:05 Temperature 97.8 F 97.7 F 96.4 F L Pulse Rate 90 87 73 Respiratory Rate 20 20 16 Blood Pressure 124/58 L 141/75 H 133/59 L Pulse Oximetry 92 L 94 L 98 03/04/18 12:54 Temperature 97.5 F L Pulse Rate 84 Respiratory Rate 18 Blood Pressure 126/55 L Pulse Oximetry 94 L Intake & Output 03/04/18 03/04/18 03/05/18 06:59 18:59 06:59 Intake Total 680 / 680 1000 / 1000 Balance 680 / 680 1000 / 1000 Weight 121.3 kg Intake: IV 200 / 200 1000 / 1000 NS + KCl 20 mEq Inj 1,000 ML @ 1000 / 1000 100 mls/hr IV.CONT .Q10H [facility] Rx #:[id number] Magnesium Sulfate 1 gm/D5W 100 200 / 200 ml Premix 100 ML @ 100 mls/hr IV.SIG Q1H [facility]ECTOR Rx#:[id number] Oral 480 / 480 Other: # Voids 2 Date of Last Bowel Movement 03/03/18 03/03/18 # Bowel Movements 1 <JordanBennie - Last Filed: 03/04/18 19:40> Results - Labs CBC & Chem 7: 03/02/18 20:06 03/04/18 07:48 Labs: Laboratory Results - last 24 hr 03/03/18 03/03/18 03/04/18 16:46 21:18 03:33 Sodium Potassium Chloride Carbon Dioxide Anion Gap BUN Creatinine Estimated GFR POC Glucose 284 H 217 H 297 H Random Glucose Calcium Magnesium 03/04/18 03/04/18 03/04/18 07:47 07:48 11:58 Sodium 139 Potassium 3.4 L Chloride 104 Carbon Dioxide 28.7 Anion Gap 6 BUN 3 L Creatinine 0.54 Estimated GFR Greater than 89 POC Glucose 240 H 226 H Random Glucose 245 H Calcium 8.0 L Magnesium 2.1 D <Damaris Bird - Last Filed: 03/04/18 12:51> - Labs CBC & Chem 7: 03/02/18 20:06 03/04/18 07:48 Labs: Laboratory Results - last 24 hr 03/03/18 03/04/18 03/04/18 21:18 03:33 07:47 Sodium Potassium Chloride Carbon Dioxide Anion Gap BUN Creatinine Estimated GFR POC Glucose 217 H 297 H 240 H Random Glucose Calcium Magnesium 03/04/18 03/04/18 03/04/18 07:48 11:58 16:55 Sodium 139 Potassium 3.4 L Chloride 104 Carbon Dioxide 28.7 Anion Gap 6 BUN 3 L Creatinine 0.54 Estimated GFR Greater than 89 POC Glucose 226 H 197 H Random Glucose 245 H Calcium 8.0 L Magnesium 2.1 D - Imaging Impressions Abdomen MRI 03/04/18 00:00 CONCLUSION: 1. Unremarkable MRI of the SMA. <Bennie Ortega - Last Filed: 03/04/18 19:40> Assessment and Plan - Plan Pleasant morbid obese 52-year-old female entered the hospital on 03/02/2018 with uncontrolled symptoms of nausea vomiting, left upper quadrant abdominal pain and diarrhea. Patient has a known history of gastroparesis. He was seen one time several weeks ago at the [facility] for further evaluation. All of her medications including Reglan, Creon, erythromycin, and Bentyl were discontinued so they could start with symptom management and a workup with a clean slight. Within 1 week patient was completely asymptomatic and uncontrolled at home and came into the hospital for further evaluation. Aggregating factors were probably related to patient's lack of medications Last EGD and colonoscopy in the hospital setting back in May 2017. No family history of colon cancer Hemoglobin 13.6, bilirubin 1.3, possible fatty liver disease versus hepatocellular disease CT scan on 03/02/2018 showed nonspecific mesenteric congestion, this could be related to ischemia thromboembolism, neoplasms vasculitis, vascular disease. Plan Diet as tolerated Will check abdominal MRI for further evaluation of her CT findings of vascular congestion, left upper quadrant pain We will add back Reglan and evaluate any effectiveness with her gastroparesis Consider EGD, feels she cannot tolerate bowel prep and colonoscopy at this time. Monitor labs Supportive care Further recommendations to follow Patient was seen per myself and Dr. Ortega, note was written on her behalf <Damaris Bird - Last Filed: 03/04/18 12:51> - Plan Patient was seen and examined, agree with above note, patient is very well- known to our service from previous She is known to have encounters gastroparesis she has multiple procedures in the past and she was evaluated by [facility], they stopped all her medication and would like her to be retested but the patient started having symptoms and she came back to the hospital just 1 week after that, we will treat the patient symptomatically today, we will check on the results of the MRI and further plan depends on how she is doing but this is not very unusual for her as far as presentation and symptom especially now she is not taking any medication <Bennie Ortega - Last Filed: 03/04/18 19:40>
[2018-03-04] MEDS ORDERED: Gadobutrol PF 10 MMOL/10 ML Vial (for RAD) IV.SIG ONE (15:45)
--- NOTE | 2018-03-04 16:35 | MR ---
EXAM DATE: 03/04/2018 4:18 PM EDT AGE/SEX: 52 years / Female INDICATIONS: Abdominal pain. Nausea and vomiting for 1 week. CLINICAL DATA: This is the patient's subsequent encounter. Patient reports that signs and symptoms h ave been present for 1 week and indicates a pain score of 3/10. MEDICAL/SURGICAL HISTORY: None. Cholecystectomy. section. Celiac decompression surger y. COMPARISON: [facility], MR ENTEROGRAPHY, 01/29/2018. . TECHNIQUE: 20 ml Gadavist (gadobutrol) contrast infused MR angiography (single exam dose) was perfo rmed with digital subtraction. The data was postprocessed with a variety of visualization algorithms including full-volume maximum-intensity projection, multiplanar sliding thin slab reformation, and c urved planar reformation. FINDINGS: The aorta is within normal limits for size. There is no aneurysmal dilatation. There is no evidence t o suggest dissection. The celiac artery and SMA are patent. There is no evidence of any focal or high -grade stenosis. There are bilateral patent renal arteries. CONCLUSION: 1. Unremarkable MRI of the SMA. Electronically signed by: Yemi Holly MD 03/04/2018 4:33 PM EDT
[2018-03-04] MEDS: Metoclopramide 10 MG Tablet PO SCH ×2 (17:08→20:17)
[2018-03-04] MEDS: Duloxetine 60 MG DR Capsule PO SCH (20:17)
[2018-03-05] MEDS: Insulin NovoLOG Aspart Correctional Sugar Inj SQ SCH ×2 (03:57→09:11)
[2018-03-05 07:03] LABS: Chloride 104 meq/L (98-107); Potassium 3.4 meq/L (3.5-5.1); Sodium 137 meq/L (136-145)
[2018-03-05 07:08] LABS: Anion Gap 7 meq/L (5-15); Blood Urea Nitrogen 3 mg/dL (7-18); Calcium 8.4 mg/dL (8.5-10.1); Glucose,Random 213 mg/dL (74-106); Magnesium 1.7 mg/dL (1.5-2.5)
[2018-03-05 07:12] LABS: Glomerular Filtration Rate Greater Than 89 mL/min (>89)
--- NOTE | 2018-03-05 08:08 | P.PNGI ---
Subjective Interval history: Patient was sound asleep when I went into the room, I wake her up and she asked her how she is doing and she said she is having pain and discomfort in her abdomen, she said she took nausea medicine early this morning, no vomiting Physical Exam Vital signs: Vital Signs 03/04/18 09:05 03/04/18 12:54 03/04/18 20:00 Temperature 96.4 F L 97.5 F L 97.5 F L Pulse Rate 73 84 84 Respiratory Rate 16 18 20 Blood Pressure 133/59 L 126/55 L 98/70 L Pulse Oximetry 98 94 L 95 03/05/18 00:00 Temperature 97.5 F L Pulse Rate 86 Respiratory Rate 20 Blood Pressure 111/74 Pulse Oximetry 97 Intake & Output 03/04/18 03/05/18 03/05/18 18:59 06:59 18:59 Intake Total 1000 / 1000 220 / 220 Balance 1000 / 1000 220 / 220 Weight 121.4 kg Intake: IV 1000 / 1000 NS + KCl 20 mEq Inj 1,000 ML @ 1000 / 1000 100 mls/hr IV.CONT .Q10H HECTOR Rx #:[id number] Oral 220 / 220 Other: # Voids 1 Date of Last Bowel Movement 03/03/18 - Constitutional no acute distress - Routine HEENT Exam Head: Present: normocephalic, atraumatic Eye: Present: EOMI, PERRL ENT: Present: mucous membranes moist - Routine Neck Exam Present: supple, full ROM - Routine Respiratory Exam Present: CTA bilaterally - Routine Abdominal Exam Present: soft, tenderness Comments: Mild tenderness in the mid abdomen generalized nonspecific, positive bowel sounds, obese Results - Labs CBC & Chem 7: 03/02/18 20:06 03/05/18 06:15 Laboratory Results - last 24 hr 03/04/18 03/04/18 03/04/18 07:47 07:48 11:58 Sodium 139 Potassium 3.4 L Chloride 104 Carbon Dioxide 28.7 Anion Gap 6 BUN 3 L Creatinine 0.54 Estimated GFR Greater than 89 POC Glucose 240 H 226 H Random Glucose 245 H Calcium 8.0 L Magnesium 2.1 D 03/04/18 03/04/18 03/05/18 16:55 20:15 03:40 Sodium Potassium Chloride Carbon Dioxide Anion Gap BUN Creatinine Estimated GFR POC Glucose 197 H 286 H 281 H Random Glucose Calcium Magnesium 03/05/18 06:15 Sodium 137 Potassium 3.4 L Chloride 104 Carbon Dioxide 26.0 Anion Gap 7 BUN 3 L Creatinine 0.63 Estimated GFR Greater than 89 POC Glucose Random Glucose 213 H Calcium 8.4 L Magnesium 1.7 - Imaging Impressions Abdomen MRI 03/04/18 00:00 CONCLUSION: 1. Unremarkable MRI of the SMA. Assessment and Plan - Plan Patient was seen and examined, agree with above note, patient is very well- known to our service from previous She is known to have encounters gastroparesis she has multiple procedures in the past and she was evaluated by [facility], they stopped all her medication and would like her to be retested but the patient started having symptoms and she came back to the hospital just 1 week after that, we will treat the patient symptomatically today, we will check on the results of the MRI and further plan depends on how she is doing but this is not very unusual for her as far as presentation and symptom especially now she is not taking any medication 03/05/2018 patient is laying comfortably in bed but then she started complaining about pain in the minute I woke her up, I advised her that she need to start sitting more in bed and walk around, I told her that we will see how the Reglan helped, there is really not much else to offer at this point except symptomatic management, she need to follow-up back with [place] so they can do the follow-up, I encouraged the patient to try to avoid pain medication and to walk around, eat small meals and from GI perspective is her vomiting under control she can be discharged
[2018-03-05] MEDS: Pregabalin 75 MG Capsule PO SCH (08:41)
[2018-03-05] MEDS: Carvedilol 6.25 MG Tablet PO SCH (08:42)
[2018-03-05] MEDS: Metoclopramide 10 MG Tablet PO SCH (08:42)
[2018-03-05 09:11] VITALS: BP 129/60; PULSE 92; RESP 18; TEMP 98.7; O2SAT 94
[2018-03-05] MEDS: Insulin Detemir Inj 1,000 UNIT/10 ML Vial SQ SCH (09:11)
[2018-03-05 09:28] LABS: Baso % (Auto) 0.5 % (0.0-2.0); Eos # (Auto) 0.2 th/mm3 (0.0-0.4); Eos % (Auto) 2.6 % (0.0-4.0); Hematocrit 34.7 % (35.0-46.0); Hemoglobin 12.1 gm/dL (11.6-15.3); Lymph # (Auto) 2.2 th/mm3 (1.0-4.8); Lymph % (Auto) 24.1 % (9.0-44.0); Mean Corpuscular Hemoglobin 29.9 pg (27.0-34.0); Mean Corpuscular Volume 85.4 fL (80.0-100.0); Mean Platelet Volume 7.1 fL (7.0-11.0); Mono # (Auto) 0.6 th/mm3 (0.0-0.9); Neut # (Auto) 6.1 th/mm3 (1.8-7.7); Neut % (Auto) 65.8 % (16.0-70.0); Platelet Count 280 th/mm3 (150-450); Red Blood Count 4.06 mil/mm3 (4.00-5.30); Red Cell Distribution Width 14.4 % (11.6-17.2); White Blood Count 9.1 th/mm3 (4.0-11.0)
--- NOTE | 2018-03-05 10:36 | P.DS ---
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 She is unable to eat much. Patient does follow with GI Dr. Lucaino and has had numerous EGDs including Botox injection one year ago. Patient was seen 5 days ago in the GIs office. She had been seen in [facility] for gastroparesis recently and was taken off her Reglan and erythromycin in order to have a 4 hour gastric emptying study. Patient states her symptoms have worsened since then. She has also been referred him to general surgery for consideration of bariatric surgery for obesity. Currently the patient is not feeling better and continues with epigastric and left upper quadrant abdominal pain which is constant, 5 out of 10, no palliative or provocative factors. Patient update on day of discharge: Patient is tolerating PO - ate solid breakfast this morning without emesis. Abd pain improved. She wants to go home. GI note appreciated. DS: Diagnosis - Discharge Diagnosis (1) Intractable epigastric abdominal pain Status: Acute (2) GERD (gastroesophageal reflux disease) Status: Acute (3) Gastroparesis Status: Acute (4) Hypertension Status: Acute (5) Type 2 diabetes mellitus with diabetic neuropathy Status: Acute (6) Hypokalemia due to inadequate potassium intake Status: Acute DS: Medications - Discharge Medications Prescriptions: ondansetron [Zofran ODT] 8 mg PO TID PRN #30 tab PRN Reason: Nausea DS: Summary Hospital Course: Patient was placed in hospital, electrolytes were repleted. She was treated symptomatically for the gastroparesis. GI recommended restarting her on reglan, no further workup planned. Patient is now symptomatically improved and tolerating PO diet. She would like to go home. She will follow up at [facility] in several weeks. - Time Spent with Patient Total time spent providing and/or coordinating discharge services: Less than 30 minutes - Quality: VTE Deep Vein Thrombosis/Pulmonary Embolism Present on Admission: No Exam Vital signs: Vital Signs 03/04/18 12:54 03/04/18 20:00 03/05/18 00:00 Temperature 97.5 F L 97.5 F L 97.5 F L Pulse Rate 84 84 86 Respiratory Rate 18 20 20 Blood Pressure 126/55 L 98/70 L 111/74 Pulse Oximetry 94 L 95 97 03/05/18 08:00 Temperature 98.7 F Pulse Rate 92 H Respiratory Rate 18 Blood Pressure 129/60 Pulse Oximetry 94 L Intake & Output 03/04/18 03/05/18 03/05/18 18:59 06:59 18:59 Intake Total 1000 / 1000 220 / 220 Balance 1000 / 1000 220 / 220 Weight 121.4 kg Intake: IV 1000 / 1000 NS + KCl 20 mEq Inj 1,000 ML @ 1000 / 1000 100 mls/hr IV.CONT .Q10H HECTOR Rx #:[id number] Oral Other: # Voids 1 Date of Last Bowel Movement 03/03/18 Narrative: Gen: obese middle aged CF in NAD, laying in bed HEENT: NCAT, EOMI, no scleral icterus or injection Neck: supple no LAD CV: RRR, no murmurs Lungs: CTAB, norm resp effort Abdomen: +BS, mild +ttp LUQ and less tender in epigastrium, soft nondistended Ext: warm and dry, 1+ pitting pedal edema of calves and ankles Skin: warm and dry without rash Psych: normal insight, mood and affect Neuro: MAEW, face symmetric, normal speech Results Procedures completed during hospitalization: none Labs on day of discharge: Labs from last 24 hours 03/05/18 03/05/18 03/05/18 09:20 07:51 06:15 CBC w Diff Auto diff final WBC 9.1 RBC 4.06 Hgb 12.1 Hct 34.7 L MCV 85.4 MCH 29.9 MCHC 35.0 RDW 14.4 Plt Count 280 MPV 7.1 Neut % (Auto) 65.8 Lymph % (Auto) 24.1 [place] % (Auto) 7.0 Eos % (Auto) 2.6 Baso % (Auto) 0.5 Neut # (Auto) 6.1 Lymph # (Auto) 2.2 [place] # (Auto) 0.6 Eos # (Auto) 0.2 Baso # (Auto) 0.0 WBC Differential . Differential Comment . Sodium 137 Potassium 3.4 L Chloride 104 Carbon Dioxide 26.0 Anion Gap 7 BUN 3 L Creatinine 0.63 Estimated GFR Greater than 89 POC Glucose 188 H Random Glucose 213 H Calcium 8.4 L Magnesium 1.7 03/05/18 03/04/18 03/04/18 03:40 20:15 16:55 CBC w Diff WBC RBC Hgb Hct MCV MCH MCHC RDW Plt Count MPV Neut % (Auto) Lymph % (Auto) [place] % (Auto) Eos % (Auto) Baso % (Auto) Neut # (Auto) Lymph # (Auto) [place] # (Auto) Eos # (Auto) Baso # (Auto) WBC Differential Differential Comment Sodium Potassium Chloride Carbon Dioxide Anion Gap BUN Creatinine Estimated GFR POC Glucose 281 H 286 H 197 H Random Glucose Calcium Magnesium 03/04/18 11:58 CBC w Diff WBC RBC Hgb Hct MCV MCH MCHC RDW Plt Count MPV Neut % (Auto) Lymph % (Auto) [place] % (Auto) Eos % (Auto) Baso % (Auto) Neut # (Auto) Lymph # (Auto) [place] # (Auto) Eos # (Auto) Baso # (Auto) WBC Differential Differential Comment Sodium Potassium Chloride Carbon Dioxide Anion Gap BUN Creatinine Estimated GFR POC Glucose 226 H Random Glucose Calcium Magnesium - Impressions ITS Impressions Abdomen/Pelvis CT 03/02/18 19:26 CONCLUSION: 1. Nonspecific mesenteric congestion. 2. Stable left renal cyst measuring 16 mm. Abdomen MRI 03/04/18 00:00 CONCLUSION: 1. Unremarkable MRI of the SMA. Discharge Plan - Discharge Disposition Patient Disposition: 01 Discharge Home - Discharge Condition Condition: Fair - Discharge Order Discharge Orders: Discharge Order (Routine); Ordered 03/05/18 Ordered By: Jacqueline Gee - Discharge Details Anticipated Discharge Date: 03/05/18 Discharge Comment: Follow up with PCP next week - Physicians Team Primary Care Provider: Manisha Estrada Attending Provider: Jacqueline Gee
== END 2018-03-05 12:05 | disposition home or self-care (01) ==
LOC: PHEDA 17:50 → PHED 17:50 → PHEDA 03-03 00:58 → PH3 03-03 01:03
PROVIDERS: ADMIT Family Medicine; ATTEND Family Medicine

== ENCOUNTER 2018-05-22 15:46 | Observation (INO) ==
[2018-05-22] MEDS ORDERED: Aspirin 325 MG Tablet PO ONE (16:13)
[2018-05-22] MEDS ORDERED: Morphine Inj 4 MG/ML Vial IV.PUSH ONE (16:13)
--- NOTE | 2018-05-22 16:34 | XR ---
EXAM DATE: 05/22/2018 4:30 PM EST AGE/SEX: 52 years / Female INDICATIONS: Chest pain today. CLINICAL DATA: This is the patient's initial encounter. Patient reports that signs and symptoms have been present for 1 day and indicates a pain score of 5/10. MEDICAL/SURGICAL HISTORY: . Diabetic. Neuropathy. HTN. . . Celiac artery repair. sec tion. Cholecystectomy. COMPARISON: [facility], CHEST 2V AP&LAT, 03/29/2018. . FINDINGS: There is a poor inspiratory result. Minimal bibasilar streakiness is consistent with probable atelect asis. CONCLUSION: 1. Poor inspiratory result. 2. Minimal bibasilar streakiness consistent with probable atelectasis Electronically signed by: Jj Parks MD 05/22/2018 4:32 PM EST
[2018-05-22 16:40] LABS: Baso # (Auto) 0.1 th/mm3 (0.0-0.2); Baso % (Auto) 1.2 % (0.0-2.0); Eos # (Auto) 0.3 th/mm3 (0.0-0.4); Eos % (Auto) 2.9 % (0.0-4.0); Hematocrit 37.8 % (35.0-46.0); Hemoglobin 13.5 gm/dL (11.6-15.3); Lymph # (Auto) 3.3 th/mm3 (1.0-4.8); Lymph % (Auto) 33.8 % (9.0-44.0); Mean Corpuscular HGB Conc 35.6 % (32.0-36.0); Mean Corpuscular Hemoglobin 29.4 pg (27.0-34.0); Mean Corpuscular Volume 82.6 fL (80.0-100.0); Mean Platelet Volume 7.6 fL (7.0-11.0); Mono # (Auto) 0.8 th/mm3 (0.0-0.9); Mono % (Auto) 7.9 % (0.0-8.0); Neut # (Auto) 5.4 th/mm3 (1.8-7.7); Neut % (Auto) 54.2 % (16.0-70.0); Platelet Count 278 th/mm3 (150-450); Red Blood Count 4.58 mil/mm3 (4.00-5.30); Red Cell Distribution Width 14.3 % (11.6-17.2); White Blood Count 9.9 th/mm3 (4.0-11.0)
[2018-05-22 16:50] LABS: Activated Partial Thrombo Time 24.5 sec (23.4-31.7)
--- NOTE | 2018-05-22 17:09 | ED ---
HPI General Chief Complaint: Chest Pain Stated Complaint: chest pain Time Seen by Provider: 05/22/18 16:02 Source: patient and family Mode of arrival: ambulatory Limitations: no limitations History of Present Illness HPI narrative: 52-year-old female that presents to the ED for evaluation of chest pain from the mid chest to the back. Per patient she has had this since this morning. Per patient nothing seems to make it better or worse. Per patient it comes and goes. Per patient is severe 8 out of 10. She does have a significant history of anxiety, gastroparesis, diabetes, hypertension. Per patient she has been compliant with her medications. Per patient nothing really seems to make the pain better or worse. Per patient she does feel short of breath secondary to the pain. She denies any abdominal pain. No nausea or vomiting. No bowel movement or urinary issues. No fevers chills or sweats. No cough or runny nose. She states that she has had a stress test long time ago. She does have a family history of heart disease. Related Data Home Medications Medication Instructions Recorded Confirmed buspirone 5 mg PO TID 01/31/18 05/22/18 carvedilol 6.25 mg PO BID 01/31/18 05/22/18 pregabalin [Lyrica] 75 mg PO TID 01/31/18 05/22/18 duloxetine [Cymbalta] 60 mg PO HS 02/16/18 05/22/18 promethazine 12.5 mg PO Q6H PRN 02/16/18 05/22/18 rosuvastatin 20 mg PO HS 02/16/18 05/22/18 insulin regular hum U-500 conc 70 unit SUBCUT TIDAC 03/29/18 05/22/18 [Humulin R U-500 (Conc) Kwikpen] metoclopramide HCl [Reglan] 10 mg PO TID 03/29/18 05/22/18 metolazone 5 mg PO DAILY 03/29/18 05/22/18 pantoprazole 40 mg PO BID 03/29/18 05/22/18 torsemide 20 mg PO DAILY 03/29/18 05/22/18 cyclobenzaprine 10 mg PO TID 05/22/18 05/22/18 insulin regular hum U-500 conc 80 unit SUBCUT TID 05/22/18 05/22/18 [Humulin R U-500 (Conc) Kwikpen] potassium chloride 10 meq PO DAILY 05/22/18 05/22/18 Previous Rx's Medication Instructions Recorded ondansetron [Zofran ODT] 8 mg PO TID PRN #30 tab 03/05/18 Allergies Allergy/AdvReac Type Severity Reaction Status Date / Time gabapentin Allergy Severe AMNESIA Verified 05/22/18 16:06 Sulfa (Sulfonamide Allergy Severe BREATHING Verified 05/22/18 16:06 Antibiotics) DIFFICULTIES Review of Systems ROS: all other systems reviewed are negative [facility] Medical History Medical History High cholesterol (Acute) Chronic abdominal pain (Acute) Chronic epigastric pain (Acute) Depression (Acute) Diabetes (Acute) FH: cholecystectomy (Acute) Frequent headaches (Acute) Gastroparesis (Acute) Hiatal hernia (Acute) History of pancreatitis (Acute) Hx of diabetes mellitus (Acute) Hx of diabetic gastroparesis (Acute) Hypertension (Acute) Microscopic colitis (Acute) Morbid obesity (Acute) Neuropathy, diabetic (Acute) Pedal edema (Acute) Surgical History Surgical History H/O LEEP (Acute) History of delivery (Acute) History of cholecystectomy (Acute) History of laparoscopy (Acute) Family History Family History Other Family history of COPD (chronic obstructive pulmonary disease) Social History Social History Substance History: No History of Abuse Second Hand Smoke Exposure: No Smoking Status: Former smoker Tobacco Type: Cigarettes How Often Do You Have a Drink Containing Alcohol: Never Recent Travel in [facility] within the Last 8 Weeks: No Recent Out of Country Travel within the Last 8 Weeks: No Immunization History Tetanus Immunization: <5 Years Exam Narrative Exam Narrative: GENERAL: Well appearing SKIN: Focused skin assessment warm/dry. HEAD: Atraumatic. Normocephalic. EYES: Pupils equal and round. No scleral icterus. No injection or drainage. ENT: No nasal bleeding or discharge. Mucous membranes pink and moist. Tongue is midline. No uvula deviation. NECK: Trachea midline. No JVD. CARDIOVASCULAR: Regular rate and rhythm. No murmur appreciated. RESPIRATORY: No accessory muscle use. Clear to auscultation. Breath sounds equal bilaterally. GASTROINTESTINAL: Abdomen soft, non-tender, nondistended. Hepatic and splenic margins not palpable. MUSCULOSKELETAL: No obvious deformities. No clubbing. No cyanosis. No edema. Full range of motion of the upper and lower extremities bilaterally. 2+ pulses bilaterally. NEUROLOGICAL: Awake and alert. No obvious cranial nerve deficits. Motor grossly within normal limits. Normal speech. PSYCHIATRIC: Appropriate mood and affect; insight and judgment normal. Course Initial Documented Vital Signs Temperature 98.4 F 05/22/18 15:52 Pulse Rate 110 H 05/22/18 15:52 Respiratory Rate 24 05/22/18 15:52 Blood Pressure 186/105 H 05/22/18 15:52 Pulse Oximetry 98 05/22/18 15:52 Last Documented Vital Signs Temperature 98.4 F 05/22/18 15:52 Pulse Rate 99 H 05/22/18 16:35 Respiratory Rate 16 05/22/18 16:43 Blood Pressure 116/74 05/22/18 16:34 Pulse Oximetry 96 05/22/18 16:35 Medical Decision Making MARY Attestation MARY supervised visit: Yes Attestation: I, Dr. Murguia, have reviewed the advance practice practitioner's documentation and am in agreement, met with the patient face to face, made the diagnosis, and the medical decision making was done by me. *My assessment and Findings: pt w CP and multiple risk factors, tn negative, ekg without ischemic change, negative d-dimer PRODUCTION LEAD evaluation recommended and patient is agreeable with plan MDM Narrative Medical decision making narrative: 52-year-old female that presents to the ED for evaluation of chest pain. Patient was properly examined and was found to have signs and symptoms consistent with chest pain. Unclear etiology at this time. Labs and imaging ordered. Patient was given aspirin pain medications. She does appear to be somewhat anxious as she was given Ativan as well. Labs and imaging came back and essentially unremarkable. This time recommendations for admission to chest pain center for further evaluation and treatment. Patient and family agree. My attending Dr. Murguia evaluated the patient himself and agrees with plan. Patient admitted to chest pain center by me. Medical Screen Exam Complete: Yes Emergency Medical Condition: Yes Differential Diagnosis Differential Diagnosis: Chest pain versus atypical chest pain versus ACS versus an STEMI Medical Records Medical records reviewed: Yes I reviewed the patient's medical records. Lab Data Lab results reviewed: Yes I reviewed the patient's lab results. Result diagrams: 05/22/18 16:21 18 16:21 Lab Results 05/22/1818 18 Range/Units 16:17 16:21 16:21 WBC 9.9 (4.0-11.0) th/mm3 RBC 4.58 (4.00-5.30) mil/mm3 Hgb 13.5 (11.6-15.3) gm/dL Hct 37.8 (35.0-46.0) % MCV 82.6 (80.0-100.0) fL MCH 29.4 (27.0-34.0) pg MCHC 35.6 (32.0-36.0) % RDW 14.3 (11.6-17.2) % Plt Count 278 (150-450) th/mm3 MPV 7.6 (7.0-11.0) fL Neut % (Auto) 54.2 (16.0-70.0) % Lymph % (Auto) 33.8 (9.0-44.0) % [place] % (Auto) 7.9 (0.0-8.0) % Eos % (Auto) 2.9 (0.0-4.0) % Baso % (Auto) 1.2 (0.0-2.0) % Neut # (Auto) 5.4 (1.8-7.7) th/mm3 Lymph # (Auto) 3.3 (1.0-4.8) th/mm3 [place] # (Auto) 0.8 (0.0-0.9) th/mm3 Eos # (Auto) 0.3 (0.0-0.4) th/mm3 Baso # (Auto) 0.1 (0.0-0.2) th/mm3 WBC Differential . Differential Comment Auto diff final PT (9.8-11.6) sec INR Ratio APTT (23.4-31.7) sec D-Dimer Quant (PE/DVT) (0.00-0.50) mg/L FEU Sodium 140 (136-145) meq/L Potassium 4.0 (3.5-5.1) meq/L Chloride 104 (98-107) meq/L Carbon Dioxide 27.2 (21.0-32.0) meq/L Anion Gap 9 (5-15) meq/L BUN 10 (7-18) mg/dL Creatinine 0.82 (0.50-1.00) mg/dL Estimated GFR 73 L (>89) mL/min POC Glucose 230 H (68-110) mg/dl Random Glucose 212 H (74-106) mg/dL Calcium 8.8 (8.5-10.1) mg/dL Magnesium 1.7 (1.5-2.5) mg/dL Total Bilirubin 0.6 (0.2-1.0) mg/dL AST 23 (15-37) U/L ALT 27 (10-53) U/L Alkaline Phosphatase 103 (45-117) U/L Total Creatine Kinase 142 (26-192) U/L CK-MB (CK-2) 1.5 (0.5-3.6) ng/mL Troponin I Less than 0.02 L (0.02-0.05) ng/mL Total Protein 7.6 (6.4-8.2) g/dL Albumin 3.2 L (3.4-5.0) g/dL Lipase 88 (73-393) U/L 05/22/18 05/22/18 Range/Units 16:21 16:21 WBC (4.0-11.0) th/mm3 RBC (4.00-5.30) mil/mm3 Hgb (11.6-15.3) gm/dL Hct (35.0-46.0) % MCV (80.0-100.0) fL MCH (27.0-34.0) pg MCHC (32.0-36.0) % RDW (11.6-17.2) % Plt Count (150-450) th/mm3 MPV (7.0-11.0) fL Neut % (Auto) (16.0-70.0) % Lymph % (Auto) (9.0-44.0) % [place] % (Auto) (0.0-8.0) % Eos % (Auto) (0.0-4.0) % Baso % (Auto) (0.0-2.0) % Neut # (Auto) (1.8-7.7) th/mm3 Lymph # (Auto) (1.0-4.8) th/mm3 [place] # (Auto) (0.0-0.9) th/mm3 Eos # (Auto) (0.0-0.4) th/mm3 Baso # (Auto) (0.0-0.2) th/mm3 WBC Differential Differential Comment PT 10.0 (9.8-11.6) sec INR 1.0 Ratio APTT 24.5 (23.4-31.7) sec D-Dimer Quant (PE/DVT) 0.45 (0.00-0.50) mg/L FEU Sodium (136-145) meq/L Potassium (3.5-5.1) meq/L Chloride (98-107) meq/L Carbon Dioxide (21.0-32.0) meq/L Anion Gap (5-15) meq/L BUN (7-18) mg/dL Creatinine (0.50-1.00) mg/dL Estimated GFR (>89) mL/min POC Glucose (68-110) mg/dl Random Glucose (74-106) mg/dL Calcium (8.5-10.1) mg/dL Magnesium (1.5-2.5) mg/dL Total Bilirubin (0.2-1.0) mg/dL AST (15-37) U/L ALT (10-53) U/L Alkaline Phosphatase (45-117) U/L Total Creatine Kinase (26-192) U/L CK-MB (CK-2) (0.5-3.6) ng/mL Troponin I (0.02-0.05) ng/mL Total Protein (6.4-8.2) g/dL Albumin (3.4-5.0) g/dL Lipase (73-393) U/L Imaging Data Attestation: I personally reviewed and interpreted this imaging study as follows : Radiologist's impression: Chest X-Ray 05/22/18 16:13 CONCLUSION: 1. Poor inspiratory result. 2. Minimal bibasilar streakiness consistent with probable atelectasis ECG Data Attestation: I personally reviewed and interpreted this ECG as follows: Interpretation: EKG shows sinus tachycardia but no sign of ischemia. Read by me and attending. Discharge Plan Discharge Disposition Patient Disposition: 30 Still Patient Discharge Details Diagnosis: Chest pain, rule out acute myocardial infarction Physicians Team ED Provider: Nikhil Murguia ED Midlevel Provider: Paul Terry Primary Care Provider: Manisha Estrada Attending Provider: Angel Luis Dillard Status ED Status: Left Department Discharge Information Discharge Date/Time: 05/22/18 18:50
[2018-05-22 17:11] LABS: Alanine Aminotransferase 27 U/L (10-53)
[2018-05-22 17:15] LABS: Alkaline Phosphatase 103 U/L (45-117); Creatine Kinase 142 U/L (26-192); Total Protein 7.6 g/dL (6.4-8.2)
[2018-05-22 17:20] LABS: Albumin 3.2 g/dL (3.4-5.0); Anion Gap 9 meq/L (5-15); Aspartate Aminotransferase 23 U/L (15-37); Blood Urea Nitrogen 10 mg/dL (7-18); Calcium 8.8 mg/dL (8.5-10.1); Carbon Dioxide 27.2 meq/L (21.0-32.0); Chloride 104 meq/L (98-107); Glomerular Filtration Rate 73 mL/min (>89); Glucose,Random 212 mg/dL (74-106); Lipase 88 U/L (73-393); Magnesium 1.7 mg/dL (1.5-2.5); Sodium 140 meq/L (136-145)
[2018-05-22 17:27] LABS: Creatine Kinase MB 1.5 ng/mL (0.5-3.6)
[2018-05-22] MEDS ORDERED: Acetaminophen 500 MG Tablet PO PRN (18:08)
[2018-05-22 20:23] LABS: Creatine Kinase 122 U/L (26-192)
[2018-05-22 20:36] LABS: Creatine Kinase MB 1.3 ng/mL (0.5-3.6)
[2018-05-22] MEDS: Morphine Inj 4 MG/ML Vial IV.PUSH PRN (21:57)
[2018-05-22 23:16] LABS: Creatine Kinase 110 U/L (26-192)
[2018-05-22 23:28] LABS: Creatine Kinase MB 1.2 ng/mL (0.5-3.6)
[2018-05-23] MEDS: Morphine Inj 4 MG/ML Vial IV.PUSH PRN (03:28)
[2018-05-23 07:40] VITALS: RESP 16
--- NOTE | 2018-05-23 08:08 | P.HPCA ---
History of Present Illness Primary Care Physician: Manisha Estrada MD Chief Complaint: Chest pain History of Present Illness: 52 year old female with history of poorly controlled type 2 diabetes, hypertension, hyperlipidemia, neuropathy, gastroparesis presents emergency room for further evaluation chest pain. Yesterday morning upon awakening 9 AM felt left anterior chest pressure. Reports fatigue yesterday therefore slept most of day. Awaken from sleep around 245pm with sudden onset of left anterior stabbing pain radiated to her mid back. Rated 10/10. Associated symptoms included diaphoresis hurt to take a deep breath. She is chronically nauseous therefore unable to determine if she has associated nausea. No vomiting. Denies similar discomfort in the past. No precipitating or relieving factors. Duration constant, currently rated 7/10. No recent illness, fever, or known injury. Endorses twisting right knee after a sip x2 weeks ago. Past cardiac testing 01/23/2015 Lexiscan-no evidence of stress-induced ischemia Social history Poorly controlled type 2 diabetes, hypertension, and hyperlipidemia. No known coronary artery disease. Former smoker quit 22 years ago. Denies alcohol or recreational drug use. . Endorses sedentary lifestyle. 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 Family history Noncontributory for early onset cardiovascular disease. - Diagnosis (1) Atypical chest pain (2) Type 2 diabetes mellitus with diabetic neuropathy (3) Hypertension (4) Hyperlipidemia (5) Carotid bruit Review of Systems All other systems reviewed negative except as stated in HPI PMFSH - History History Provided By: Patient - Medical History Medical History: Medical History (Last Reviewed 05/23/18 @ 09:58 by SEDRICK Cortes) Chronic abdominal pain Chronic epigastric pain Depression FH: cholecystectomy Frequent headaches Gastroparesis Hiatal hernia High cholesterol History of pancreatitis Hx of diabetes mellitus Hx of diabetic gastroparesis Hypertension Microscopic colitis Morbid obesity Neuropathy, diabetic Pedal edema - Surgical History Surgical History: Surgical History (Last Reviewed 05/23/18 @ 09:58 by SEDRICK Cortes) H/O LEEP History of delivery History of cholecystectomy History of laparoscopy - Family History Family History: Family History (Last Reviewed 05/23/18 @ 09:58 by SEDRICK Cortes) Other Family history of COPD (chronic obstructive pulmonary disease) - Social History I have reviewed the patient's Social History: Yes - Tobacco History Second Hand Smoke Exposure: No Tobacco Use In Past 30 Days: No Smoking Status: Former smoker (Quit 22 years ago) Tobacco Type: Cigarettes - Alcohol History How Often Do You Have a Drink Containing Alcohol: Monthly or less - Substance Use History Substance History: No History of Abuse - Travel History Recent Travel in the [place] Within the Last 8 Weeks: No Recent Travel Out of the Country Within the Last 8 Weeks: No - Immunization History Tetanus Immunization: <5 Years Medications and Allergies Active Medications: Active Medications Acetaminophen (Tylenol) 500 mg PO Q4H PRN PRN Reason: HEADACHE Hydrocodone Bitart/Acetaminophen ([place] 7.5/325) 1 tab PO Q4H PRN PRN Reason: PAIN SCALE 1 TO 7 Last Admin: 05/23/18 01:44 Dose: 1 tab Morphine Sulfate (Morphine Inj) 2 mg IV.PUSH Q4H PRN PRN Reason: PAIN SCALE 8 TO 10 Last Admin: 05/23/18 03:28 Dose: 2 mg Ondansetron HCl (Zofran Inj) 4 mg IV.PUSH Q6H PRN PRN Reason: NAUSEA Sodium Chloride (Ns Flush) 2 ml IV.FLUSH UNSCH PRN PRN Reason: FLUSH AFTER USING IV ACCESS Last Admin: 05/22/18 16:34 Dose: 2 ml Sodium Chloride (Ns Flush) 2 ml IV.FLUSH BID HECTOR Last Admin: 05/22/18 20:46 Dose: 2 ml Sodium Chloride (Ns Flush) 2 ml IV.FLUSH PRN PRN PRN Reason: FLUSH AFTER USING IV ACCESS Allergies Allergy/AdvReac Type Severity Reaction Status Date / Time gabapentin Allergy Severe AMNESIA Verified 05/22/18 16:06 Sulfa (Sulfonamide Allergy Severe BREATHING Verified 05/22/18 16:06 Antibiotics) DIFFICULTIES Home Medications Medication Instructions Recorded Confirmed Type buspirone 5 mg PO TID 01/31/18 05/22/18 History carvedilol 6.25 mg PO BID 01/31/18 05/22/18 History pregabalin [Lyrica] 75 mg PO TID 01/31/18 05/22/18 History duloxetine [Cymbalta] 60 mg PO HS 02/16/18 05/22/18 History promethazine 12.5 mg PO Q6H PRN 02/16/18 05/22/18 History rosuvastatin 20 mg PO HS 02/16/18 05/22/18 History insulin regular hum U-500 conc 70 unit SUBCUT TIDAC 03/29/18 05/22/18 History [Humulin R U-500 (Conc) Kwikpen] metoclopramide HCl [Reglan] 10 mg PO TID 03/29/18 05/22/18 History metolazone 5 mg PO DAILY 03/29/18 05/22/18 History pantoprazole 40 mg PO BID 03/29/18 05/22/18 History torsemide 20 mg PO DAILY 03/29/18 05/22/18 History cyclobenzaprine 10 mg PO TID 05/22/18 05/22/18 History insulin regular hum U-500 conc 80 unit SUBCUT TID 05/22/18 05/22/18 History [Humulin R U-500 (Conc) Kwikpen] potassium chloride 10 meq PO DAILY 05/22/18 05/22/18 History Exam Vital signs: Vital Signs 05/22/18 15:52 05/22/18 16:09 05/22/18 16:34 Temperature 98.4 F Pulse Rate 110 H 107 H 99 H Respiratory Rate 24 20 16 Blood Pressure 186/105 H 164/101 H 116/74 Pulse Oximetry 98 97 94 L 05/22/18 16:35 05/22/18 16:43 05/22/18 19:43 Temperature 98.2 F Pulse Rate 99 H 107 H Respiratory Rate 16 18 Blood Pressure 145/74 H Pulse Oximetry 96 97 05/22/18 20:00 05/22/18 23:16 05/23/18 00:00 Temperature 98.0 F Pulse Rate 104 H 96 H 97 H Respiratory Rate 17 Blood Pressure 127/65 Pulse Oximetry 97 97 05/23/18 03:09 05/23/18 04:00 05/23/18 07:39 Temperature 98.1 F 98.0 F Pulse Rate 102 H 100 H 106 H Respiratory Rate 18 16 Blood Pressure 180/85 H 182/90 H Pulse Oximetry 93 L 93 L 05/23/18 07:47 Temperature Pulse Rate Respiratory Rate Blood Pressure Pulse Oximetry 97 Intake & Output 05/22/18 05/23/18 05/23/18 18:59 06:59 18:59 Weight 115.212 kg 115.212 kg Other: Date of Last Bowel Movement 05/22/18 Weight On Admission 115.212 kg Narrative: GENERAL: Alert WN, WD, NAD, pleasant, morbidly obese, female HEAD: NC, AT EYES: Sclera clear, conjunctiva without injection, pupils equal and round ENT: Mucous membranes pink and moist NECK: Supple, no masses, trachea midline CV: RRR, without murmur, rub, gallop, no JVD, S1-S2. Right carotid bruit. Chest wall pain easily reproduced with light palpation. RESP: Clear lungs throughout bilateral, no crackles, wheeze, rhonchi, symmetrical chest rise, nonlabored, able to speak in full sentences ABD: Soft, NT, ND, no masses, positive bowel tones EXT: Pulses +1x4, +1 dependent edema MS: Normal tone x4 extremities, nontender, no obvious deformities, full range of motion NEURO: CN II through CN XII grossly intact, motor strength 5/5 PSYCH: A+O x3, pleasant affect, appropriate speech, appropriate mood, insight and judgment SKIN: Normal turgor, normal texture, no lesions, no rashes, brisk cap refill, even hair distribution, dry skin bilateral feet/toes Results 05/22/18 16:21 05/22/18 16:21 Cardiac Enzymes 05/22/18 05/22/18 05/22/18 Range/Units 16:21 19:24 22:32 AST 23 (15-37) U/L CK-MB (CK-2) 1.5 1.3 1.2 (0.5-3.6) ng/mL Troponin I Less than 0.02 L Less than 0.02 L Less than 0.02 L (0.02-0.05) ng/mL Coagulation 05/22/18 Range/Units 16:21 PT 10.0 (9.8-11.6) sec APTT 24.5 (23.4-31.7) sec CBC 05/22/18 Range/Units 16:21 WBC 9.9 (4.0-11.0) th/mm3 RBC 4.58 (4.00-5.30) mil/mm3 Hgb 13.5 (11.6-15.3) gm/dL Hct 37.8 (35.0-46.0) % Plt Count 278 (150-450) th/mm3 Neut # (Auto) 5.4 (1.8-7.7) th/mm3 Lymph # (Auto) 3.3 (1.0-4.8) th/mm3 [place] # (Auto) 0.8 (0.0-0.9) th/mm3 Eos # (Auto) 0.3 (0.0-0.4) th/mm3 Baso # (Auto) 0.1 (0.0-0.2) th/mm3 Comprehensive Metabolic Panel 05/22/18 Range/Units 16:21 Sodium 140 (136-145) meq/L Potassium 4.0 (3.5-5.1) meq/L Chloride 104 (98-107) meq/L Carbon Dioxide 27.2 (21.0-32.0) meq/L BUN 10 (7-18) mg/dL Creatinine 0.82 (0.50-1.00) mg/dL Calcium 8.8 (8.5-10.1) mg/dL AST 23 (15-37) U/L ALT 27 (10-53) U/L Alkaline Phosphatase 103 (45-117) U/L Total Protein 7.6 (6.4-8.2) g/dL Albumin 3.2 L (3.4-5.0) g/dL Intake and Output 05/22/18 05/23/18 05/23/18 22:59 06:59 14:59 Other: Date of Last Bowel Movement 05/22/18 Weight 115.212 kg Weight On Admission 115.212 kg - Imaging and Cardiology Imaging: Impressions Chest X-Ray 05/22/18 16:13 CONCLUSION: 1. Poor inspiratory result. 2. Minimal bibasilar streakiness consistent with probable atelectasis EKG interpretations - EKG EKG results cardiology: sinus rhythm (Sinus tachycardia, left axis deviation, no ST-T segment) Caprini VTE Risk Assessment Caprini VTE Risk Assessment: No/Low Risk (score <= 1) Caprini Risk Assessment Model: Point Value = 1 Point Value = 2 Point Value = 3 Point Value = 5 Age 41-60 Minor surgery BMI > 25 kg/m2 Swollen legs Varicose veins or History of unexplained or recurrent spontaneous Oral contraceptives or hormone replacement Sepsis (< 1 month) Serious lung disease, including pneumonia (< 1 month) Abnormal pulmonary function Acute myocardial infarction Congestive heart failure (< 1 month) History of inflammatory bowel disease Medical patient at bed rest Age 61-74 Arthroscopic surgery Major open surgery (> 45 min) Laparoscopic surgery (> 45 min) Malignancy Confined to bed (> 72 hours) Immobilizing plaster cast Central venous access Age >= 75 History of VTE Family history of VTE Factor V Leiden Prothrombin [id number] Lupus anticoagulant Anticardiolipin antibodies Elevated serum homocysteine Heparin-induced thrombocytopenia Other congenital or acquired thrombophilia Stroke (< 1 month) Elective arthroplasty Hip, pelvis, or leg fracture Acute spinal cord injury (< 1 month) Prophylaxis Regimen: Total Risk Factor Score Risk Level Prophylaxis Regimen 0-1 Low Early ambulation 2 Moderate Order ONE of the following: *Sequential Compression Device (SCD) *Heparin 5000 units SQ BID 3-4 Higher Order ONE of the following medications: *Heparin 5000 units SQ TID *Enoxaparin/Lovenox 40 mg SQ daily (WT < 150 kg, CrCl > 30 mL/min) *Enoxaparin/Lovenox 30 mg SQ daily (WT < 150 kg, CrCl > 10-29 mL/min) *Enoxaparin/Lovenox 30 mg SQ BID (WT < 150 kg, CrCl > 30 mL/min) AND/OR *Sequential Compression Device (SCD) 5 or more Highest Order ONE of the following medications: *Heparin 5000 units SQ TID (Preferred with Epidurals) *Enoxaparin/Lovenox 40 mg SQ daily (WT < 150 kg, CrCl > 30 mL/min) *Enoxaparin/Lovenox 30 mg SQ daily (WT < 150 kg, CrCl > 10-29 mL/min) *Enoxaparin/Lovenox 30 mg SQ BID (WT < 150 kg, CrCl > 30 mL/min) AND *Sequential Compression Device (SCD) Assessment and Plan - Assessment (1) Atypical chest pain Code(s): R07.89 - Other chest pain Status: Acute Plan: Admitted chest pain center. ACS ruled out 3 sets of EKGs and cardiac enzymes. Monitor on telemetry overnight. Will be seen and evaluated by Dr. Angel Luis Dillard. Discomfort suggestive of musculoskeletal chest wall pain. Toradol 30 mg times IV 1 dose now. Likely will repeat Lexiscan due to multiple risk factors, states she is unable to walk on treadmill. Further disposition to follow. (2) Type 2 diabetes mellitus with diabetic neuropathy Code(s): E11.40 - Type 2 diabetes mellitus with diabetic neuropathy, unspecified Status: Chronic Plan: SSI moderate dose coverage. (3) Hypertension Code(s): I10 - Essential (primary) hypertension Status: Chronic Plan: Continue carvedilol and torsemide. (4) Hyperlipidemia Code(s): E78.5 - Hyperlipidemia, unspecified Status: Chronic Plan: Continue rosuvastatin. (5) Carotid bruit Code(s): R09.89 - Other specified symptoms and signs involving the circulatory and respiratory systems Status: Acute Plan: Instructed to follow up with primary care provider for outpatient carotid ultrasound. Patient and verbalized understanding. H&P: Quality - VTE Deep Vein Thrombosis/Pulmonary Embolism Present on Admission: No (2) Type 2 diabetes mellitus with diabetic neuropathy Qualifiers: Diabetes mellitus snf insulin use: unspecified snf insulin use status Qualified Code(s): E11.40 - Type 2 diabetes mellitus with diabetic neuropathy, unspecified (3) Hypertension Qualifiers: Hypertension type: unspecified Qualified Code(s): I10 - Essential (primary) hypertension (4) Hyperlipidemia Qualifiers: Hyperlipidemia type: unspecified Qualified Code(s): E78.5 - Hyperlipidemia, unspecified (5) Carotid bruit Qualifiers: Laterality: right Qualified Code(s): R09.89 - Other specified symptoms and signs involving the circulatory and respiratory systems
[2018-05-23] MEDS ORDERED: Dextrose 50% in Water 50 ML Vial IV.PUSH PRN (08:12)
[2018-05-23] MEDS ORDERED: Ketorolac Inj 30 MG/ML (IVP) Vial IV.PUSH ONE (08:30)
[2018-05-23] MEDS ORDERED: Regadenoson Inj 0.4 MG/5 ML Syringe IV.PUSH ONE (10:00)
[2018-05-23] MEDS ORDERED: Torsemide 20 MG Tablet PO SCH (10:15)
[2018-05-23] MEDS ORDERED: Carvedilol 12.5 MG Tablet PO SCH (10:15)
--- NOTE | 2018-05-23 11:33 | NM ---
EXAM DATE: 05/23/2018 11:28 AM EST AGE/SEX: 52 years / Female INDICATIONS:Angina. . Midsternal chest pain. CLINICAL DATA: This is the patient's initial encounter. Patient reports that signs and symptoms have been present for 1 day and indicates a pain score of 8/10. MEDICAL/SURGICAL HISTORY: Diabetes mellitus type II. Hypertension. Pancreatitis. Cholecystect erwin. Inguinal hernia repair. COMPARISON: [facility] – [place] MYOCARDIAL PERF PHARM SPECT, 01/23/2015. . DOSE: 11 mCi Tc 99m Myoview at rest 35 mCi [id number] at stress 0.4 mg Lexiscan STRESS SYMPTOMS: None. EJECTION FRACTION: 67 % TECHNIQUE: The patient underwent pharmacologic stress with infusion of prescribed dose. Continuous ECG tracing was monitored during stress. Gated SPECT imaging was performed after stress and conventi onal SPECT imaging was performed at rest. The examination was performed on a SPECT/CT scanner, both attenuation and non-corrected datasets were reviewed. FINDINGS: Distribution: The maximum perfused segment at stress is in the anterior wall. Perfusion Study: The pattern of perfusion at stress is within normal limits. Gated Study: There are intact wall motion and wall thickening without hypokinetic or dyskinetic segm ents. The ejection fraction is calculated at 67%. RISK CATEGORY: Low (<1% Annual Motality Rate) CONCLUSION: 1. Negative examination. Electronically signed by: Lay Mayorga MD 05/23/2018 11:31 AM EST
[2018-05-23] MEDS ORDERED: Insulin NovoLOG Aspart Correctional Sugar Inj SQ SCH (12:00)
[2018-05-23 12:37] VITALS: BP 135/79; PULSE 115; TEMP 98.2; O2SAT 94
[2018-05-23] MEDS ORDERED: Metoclopramide 10 MG Tablet PO SCH (13:00)
--- NOTE | 2018-05-23 15:17 | ECG ---
Date Performed: 05/22/2018 Time Performed: 16:00:20 PTAGE: 52 years EKG: SINUS TACHYCARDIA Borderline Left [place] decviation Poor initial anterior forces which may be due to axis and may be a normal variant Low QRS voltage in precordial leads PREVIOUS TRACING : 02/16/2018 12.03 Since the previous tracing, no significant change not ed DOCTOR: Angel Luis Dillard Interpretating Date/Time 05/23/2018 15:17:24
--- NOTE | 2018-05-23 16:03 | TR ---
Date Performed: 05/23/2018 Time Performed: 10:31:14 DOCTOR: Angel Luis Dillard DRUG LIST: CLINICAL HISTORY: REASON FOR TEST: REASON FOR ENDING: OBSERVATION: CONCLUSION: COMMENTS: Lexiscan stress test was performed under standard four minute protocol. Radionuclide was injected one minute prior to ending the test. No electrocardiographic abormalities were present t o suggest ischemia. Nuclear imaging and interpretation are pending.
--- NOTE | 2018-05-23 16:05 | ECG ---
Date Performed: 05/23/2018 Time Performed: 03:35:42 PTAGE: 52 years EKG: SINUS TACHYCARDIA LOW QRS VOLTAGE IN PRECORDIAL LEADS Poor R wave progression ABNORMAL ECG PREVIOUS TRACING : 05/22/2018 22.17 Since previous tracing, no significant change noted DOCTOR: Angel Luis Dillard Interpretating Date/Time 05/23/2018 16:05:39
--- NOTE | 2018-05-23 16:08 | ECG ---
Date Performed: 05/22/2018 Time Performed: 22:17:53 PTAGE: 52 years EKG: SINUS TACHYCARDIA LOW QRS VOLTAGE IN PRECORDIAL LEADS Poor R wave progression ABNORMAL ECG PREVIOUS TRACING : 05/22/2018 19.39 Since previous tracing, no significant change noted DOCTOR: Angel Luis Dillard Interpretating Date/Time 05/23/2018 16:06:47
--- NOTE | 2018-05-24 22:42 | ECG ---
Date Performed: 05/22/2018 Time Performed: 19:39:37 PTAGE: 52 years EKG: SINUS TACHYCARDIA PVC BORDERLINE LEFT AXIS DEVIATION LOW QRS VOLTAGE IN PRECORDIAL LEADS AB NORMAL ECG PREVIOUS TRACING : 05/22/2018 16.00 Since the previous tracing, no significant change noted DOCTOR: Redd Simms Interpretating Date/Time 05/24/2018 22:41:27
== END 2018-05-23 13:26 | disposition home or self-care (01) ==
LOC: NEDA 15:46 → NEPC 15:46 → NEPHCDU 18:38
DX: I10 Essential (primary) hypertension; E66.01 Morbid (severe) obesity due to excess calories; Z79.4 Long term (current) use of insulin; Z87.891 Personal history of nicotine dependence; E11.65 Type 2 diabetes mellitus with hyperglycemia; Z79.899 Other long term (current) drug therapy; E78.5 Hyperlipidemia, unspecified; R07.89 Other chest pain; G89.29 Other chronic pain; F32.9 Major depressive disorder, single episode, unspecified